=== PATIENT | male | born 1950 | race Hispanic/Latino ===

== ENCOUNTER 2018-04-05 21:29 | Observation (INO) | payer MEDICARE ==
--- NOTE | 2018-04-05 22:07 | RAD ---
CHEST TWO VIEWS: HISTORY: Chest pain and hypertension. FINDINGS: Heart size is borderline. Postop sternotomy changes. Some minimal linear atelectasis or scar in the lung bases. No focal infiltrates or signs of failure. IMPRESSION: Borderline heart size. No definite acute process. POS: [facility]
[2018-04-05 22:27] LABS: #Basophils 0.1 thou/uL (0.0-0.2); #Eosinphils 0.3 thou/uL (0.0-0.7); #Lymphocytes 1.9 thou/uL (1.20-3.40); #Monocytes 0.5 thou/uL (0.11-0.59); #Neutrophils 3.2 thou/uL (1.40-6.50); %Basophils 1.5 % (0.0-1.0); %Eosinophils 4.3 % (0.0-10.0); %Lymphocytes 31.9 % (21.0-51.0); %Monocytes 9.1 % (0.0-10.0); %Neutrophils 53.2 % (42.0-75.0); Hemoglobin 11.3 g/dL (14.0-18.0); Mean Corpuscular HGB CONC 34.4 g/dL (32.0-36.0); Mean Platelet Volume 7.6 fL (7.4-10.4); Platelet Count 225 thou/uL (130-400); Red Blood Cell (RBC) Count 3.55 mill/uL (4.70-6.10)
[2018-04-05 22:35] LABS: ALT (SGPT) 15 U/L (8-55); AST (SGOT) 26 U/L (5-34); Albumin 3.2 g/dL (3.4-4.8); Alkaline Phosphatase 74 U/L (40-150); Anion Gap 14 mmol/L (10-20); BUN (Urea Nitrogen) 46 mg/dL (8.4-25.7); Bilirubin, Total 0.4 mg/dL (0.2-1.2); CK (CPK) 986 U/L (30-200); Calc. Creatinine Clearance 0 mL/min (70-130); Calcium 8.4 mg/dL (7.8-10.44); Carbon Dioxide 20 mmol/L (23-31); Chloride 109 mmol/L (98-107); Estimated GFR-MDRD 22; Globulin 2.8 g/dL (2.4-3.5); Glucose 207 mg/dL (80-115); Potassium 4.6 mmol/L (3.5-5.1); Sodium 138 mmol/L (136-145)
[2018-04-05 22:44] LABS: Troponin I Less than 0.010 ng/mL (< 0.028)
[2018-04-05] MEDS ORDERED: cloNIDine 0.1 MG TAB ONE (22:56)
[2018-04-05 23:07] LABS: CKMB 10.5 ng/mL (0-6.6)
[2018-04-06] MEDS ORDERED: Nitroglycerin 0.2mg/Hour PATCH TOP SCH (01:00)
[2018-04-06 02:09] LABS: Troponin I 0.021 ng/mL (< 0.028)
[2018-04-06] MEDS ORDERED: hydrALAZINE 20 MG/ML VIAL SLOW IVP PRN (03:07)
[2018-04-06] MEDS ORDERED: Ondansetron ODT 4 MG TAB PO PRN (04:28)
[2018-04-06] MEDS ORDERED: Insulin Regular 300 UNITS/3 ML VIAL SC PRN ×2 (04:28)
[2018-04-06] MEDS ORDERED: Dextrose 5% in Water 1,000 ML IV PRN (04:28)
[2018-04-06] MEDS ORDERED: Dextrose 50% Abboject 50 ML SYRINGE SLOW IVP PRN (04:28)
[2018-04-06] MEDS ORDERED: Calcium Carbonate 500 MG ChewTAB PO PRN (04:28)
[2018-04-06] MEDS ORDERED: Nitroglycerin 0.4 MG TAB (25 Tab Bottle) PO PRN (04:28)
[2018-04-06] MEDS ORDERED: Senokot 8.6 MG TAB PO PRN (04:28)
[2018-04-06] MEDS ORDERED: Ondansetron HCl/PF 4 MG/2 ML Vial IVP PRN (04:28)
[2018-04-06] MEDS ORDERED: Furosemide 40 MG/4 ML VIAL SLOW IVP SCH (04:45)
--- NOTE | 2018-04-06 04:59 | HP ---
DATE OF ADMISSION: 04/06/2018 CHIEF COMPLAINT: Elevated blood pressure. PRIMARY CARE PHYSICIAN: Dr. Tatianna Reid. PRIMARY PHYSICIAN PRACTICE ADMINISTRATOR: Dr. Noland. HISTORY OF PRESENT ILLNESS: Patient is a 67-year-old male with CKD, stage 4; coronary artery disease , status post CABG and stent placement; hypertension; and diabetes mellitus, type 2 presented to the emergency room with uncontrolled blood pressure along with some headache and jaw pain for the last 5 days. Patient is compliant with all of his antihypertensives that includes carvedilol 25 mg twice a day and Imdur 30 mg daily and Lasix 20 mg daily. At times, his blood pressure drops in 80s where he starts feeling dizzy. He is currently not on RADHA inhibitor due to renal insufficiency. Here earlier today, his blood pressure was in 200 range, for which he presented to the emergency room. He also h ad some headache, which was over his posterior neck with some tingling in his left hand. Tingling in the left hand has resolved. He denies any double vision, blurring of vision, facial asymmetry, bobby turia, or back pain. In the emergency room, initial vital signs showed temperature 98.5, respirations 18, pulse rate of 80 , blood pressure of 206/113 with O2 saturation 96% on room air. He received 1 liter IV fluid, 0.1 mg clonidine, 10 mg hydralazine. Patient also complains of shortness of breath on mild exertion. He gets short of breath on lying florina n. He also noticed bilateral lower extremity swelling that has been worsening over the past few days . PAST MEDICAL HISTORY: 1. Coronary artery disease, status post CABG and stent placement. 2. Hypertension. 3. CKD, stage 4. 4. Hyperlipidemia. 5. Diabetes mellitus, type 2. 6. Helicobacter pylori. 7. Benign prostatic hypertrophy. PAST SURGICAL HISTORY: 1. Coronary artery bypass grafting. 2. Cardiac catheterization. 3. Right eye vitrectomy. 4. Chronic diastolic heart failure. 5. History of acute CVA in 2017. ALLERGIES: Patient is allergic to PENICILLIN. CURRENT HOME MEDICATIONS: Aspirin 81 mg daily, Lipitor 20 mg daily, carvedilol 25 mg b.i.d., finaste ride 5 mg daily, Imdur 30 mg daily, Lasix 20 mg daily, Lantus 15 units in the morning and 5 units in the evening. SOCIAL HISTORY: Patient currently lives at home. He is a former smoker approximately [id number] s moking history. He denies current use of alcohol or drug use. He is retired, lives at home with his family. FAMILY HISTORY: Makes his own decision with the help of his family. He is FULL CODE. Family histor y is positive for heart disease. REVIEW OF SYSTEMS: The following complete review of systems was negative, unless otherwise mentioned in the HPI or below: Constitutional: Weight loss or gain, ability to conduct usual activities. Sk in: Rash, itching. Eyes: Double vision, pain. ENT/Mouth: Nose bleeding, neck stiffness, pain, te nderness. Cardiovascular: Palpitations, dyspnea on exertion, orthopnea. Respiratory: Shortness of breath, wheezing, cough, hemoptysis, fever, or night sweats. Gastrointestinal: Poor appetite, abdo ene pain, heartburn, nausea, vomiting, constipation, or diarrhea. Genitourinary: Urgency, frequen cy, dysuria, nocturia. Musculoskeletal: Pain, swelling. Neurologic/Psychiatric: Anxiety, depressi on. Allergy/Immunologic: Skin rash, bleeding tendency. PHYSICAL EXAMINATION: VITAL SIGNS: As discussed above. GENERAL: A 67-year-old male in no apparent distress. Denies any tingling in his left hand. Headach e is improving. HEENT: Head atraumatic, normocephalic. Sclerae anicteric. Moist mucous membrane. No oral lesion. NECK: Supple, no carotid bruit. Neck veins distended. HEART: S1, S2 present. Healed midline scar from previous CABG, 2/6 systolic murmur over the mitral area. No heaves or pulsation. ABDOMEN: Soft, nontender, bowel sounds present. EXTREMITIES: No guarding or rigidity. 1+ edema in bilateral lower extremities. LUNGS: Showed bibasilar crackles with scattered rhonchi. No wheezing. There was mild accessory mus joey use. SKIN: Warm and dry. LYMPH NODES: No palpable lymph nodes in the neck. PERIPHERAL VASCULAR: Radial pulses palpable bilaterally. MUSCULOSKELETAL: No joint swelling or tenderness. LABORATORY FINDINGS: CK of 986 with CK-MB 10.5. Troponins were negative. BNP 1021. BUN was 46, cr eatinine 2.87. Hemoglobin 11.3, hematocrit 33. Chest x-ray by my review showed pulmonary vascular congestion. EKG by my review showed sinus rhythm with nonspecific ST-T wave changes. IMPRESSION: 1. Hypertensive urgency. We will continue carvedilol, Imdur. We will start him on IV diuretics. Flora jimenez was counseled on fluid and salt-restriction. There is no evidence of end-organ damage. 2. Acute on chronic diastolic heart failure exacerbation secondary to volume overload. Plan as disc ussed above. 3. Acute kidney injury on chronic kidney disease stage 4, probably secondary to cardiorenal syndrome . We will avoid RADHA inhibitor due to renal insufficiency. We will continue beta blockers and Lasix. We will recheck labs in a.m. 4. Diabetes mellitus, type 2. We will start him on sliding scale. 5. Elevated CK at 986. Patient denies any fall or injury. His CK last year has been in 200 range. We will recheck CK in a.m. We will hold IV fluids due to congestive heart failure. He received 1 l iter IV normal saline bolus in the emergency room. 6. Mild protein-calorie malnutrition. Patient has hypoalbuminemia secondary to proteinuria. 7. Metabolic acidosis probably secondary to renal insufficiency. 8. Anemia secondary to renal insufficiency. 9. Coronary artery disease, status post coronary artery bypass graft and stent placement. 10. Hyperlipidemia. 11. History of cerebrovascular accident currently on aspirin, which will be continued. Plan of care was discussed with the patient and the family in detail, they stated understanding.
[2018-04-06 06:01] LABS: Troponin I 0.051 ng/mL (< 0.028)
[2018-04-06] MEDS: Acetaminophen 325 MG TAB PO PRN ×2 (07:39→21:24)
[2018-04-06] MEDS ORDERED: Furosemide 20 MG TAB PO PRN (07:52)
[2018-04-06] MEDS: Aspirin 81 mg Enteric Coated Tablet PO SCH (08:42)
[2018-04-06] MEDS: Carvedilol 25 MG TAB PO SCH ×2 (08:42→21:24)
[2018-04-06] MEDS ORDERED: Insulin Detemir 100 UNITS/ML 15 UNITS in Pre-Filled Syringe 1 EACH SC SCH (09:00)
[2018-04-06] MEDS ORDERED: Aspirin 325 MG TAB PO SCH (09:00)
[2018-04-06] MEDS ORDERED: Non-Formulary Item 1 EACH (Insulin Glargine,Hum.Rec.Anlog 15 UNIT) SC SCH (09:00)
[2018-04-06] MEDS ORDERED: Carvedilol 25 MG TAB PO SCH (09:00)
[2018-04-06] MEDS ORDERED: Finasteride 5 MG TAB PO SCH ×3 (09:00→21:00)
[2018-04-06 09:01] LABS: Anion Gap 18 mmol/L (10-20); Calc. Creatinine Clearance 34 mL/min (70-130); Calcium 8.4 mg/dL (7.8-10.44); Carbon Dioxide 12 mmol/L (23-31); Chloride 118 mmol/L (98-107); Estimated GFR-MDRD 25; Glucose 102 mg/dL (80-115); Potassium 4.7 mmol/L (3.5-5.1); Sodium 143 mmol/L (136-145)
[2018-04-06 09:11] LABS: BUN (Urea Nitrogen) 42 mg/dL (8.4-25.7)
[2018-04-06] MEDS: Amlodipine 5 MG TAB PO SCH (09:57)
--- NOTE | 2018-04-06 11:16 | CON ---
DATE OF CONSULTATION: 04/06/2018 NEPHROLOGY CONSULTATION REASON FOR CONSULTATION: Elevated creatinine. HISTORY OF PRESENT ILLNESS: A 67-year-old gentleman being seen in the [facility], presented to the [facility] today for elevated blood pressure. The patient complains of headache. Denies any numbness, tingling or weakness. The patient's baseline creatinine was in 2 and increased to 2.8. The patient denies taking any NSAIDs or any nausea medications. The patient has been complaining of some leg swe lling and also dyspnea with minimal exertion. PAST MEDICAL HISTORY: Coronary artery disease, CABG, hypertension, CKD stage 4, diabetes mellitus, B PH, CABG, cardiac catheterization, vitrectomy, congestive heart failure, CVA. ALLERGIES: Reviewed. HOME MEDICATIONS: List reviewed. SOCIOECONOMIC HISTORY: No alcohol or drug use. FAMILY HISTORY: Negative for ESRD. REVIEW OF SYSTEMS: A 15-point review of systems was performed and was negative except for positives noted above. GENERAL: Weakness- HEAD: Headache- NECK: No swelling or lumps. NOSE: No epistaxis or discharge. EYES: No diplopia or pain. 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 NEUROPSYCHIATIC SYSTEMS: No suicidal ideation. No ideation. SKIN: Denies any rash or ulcer. CONSTITUTIONAL: No fever or chills. PHYSICAL EXAMINATION: GENERAL: Patient is awake and alert. VITAL SIGNS: Afebrile, pulse 73, breathing 16, blood pressure 165/88. HEAD/NECK: Normocephalic. Atraumatic. EYES: EOMI. No deformity. EARS: Clear. No ulcers. NOSE: Intact. No lesions. MOUTH: Clear. No discharge. THROAT: Clear. No exudate. LUNGS: Clear. No crackles. CARDIAC: S1, S2. No rub. ABDOMEN: Benign. BS+. GENITALIA/RECTUM: Connor absent. BACK/EXTREMITIES: Edema 0+ Ulcer- NEUROLOGICAL: Alert and motor intact. SKIN: Rash- Bruise- LYMPHATICS: Have some edema, ulcer- LABORATORY DATA: Show creatinine 2.87. Today's, creatinine is pending. ASSESSMENT AND RECOMMENDATIONS: 1. Acute kidney disease with chronic kidney disease, most likely due to decreased effective arterial blood volume and/or cardiorenal syndrome. Agree with furosemide. 2. Hypertension. Would add amlodipine. 3. Edema with congestive heart failure. Continue Lasix. Would recommend cardiac evaluation. The p atient's EF last time was 40%. The patient has mild aortic and mitral regurgitation. No urgent miky cation for dialysis at this time.
[2018-04-06] MEDS: Furosemide 40 MG/4 ML VIAL SLOW IVP SCH (13:59)
--- NOTE | 2018-04-06 14:00 | ULT ---
RENAL ULTRASOUND: COMPARISON: None. History Acute kidney injury. TECHNIQUE: Multiplanar, barajas scale, and color Doppler images were obtained in a renal ultrasound. FINDINGS: The kidneys demonstrate increased echogenicity. There are anechoic cysts in both kidneys. The large st is seen on the left measuring 3.7 cm in size. There is no evidence of hydronephrosis on either si de. No shadowing calculi are present. The right kidney is smaller than the left. The kidneys measu re 8.2 and 11.6 cm in length on the right and left, respectively. Limited visualization of the urinary bladder is unremarkable. IMPRESSION: 1. Bilateral renal cysts. 2. Echogenic kidneys is likely secondary to chronic medical renal disease. POS: [facility]
--- NOTE | 2018-04-06 14:55 | CT ---
NONCONTRAST CT HEAD: DATE: 04/06/18. HISTORY: Posterior headache without relief. COMPARISON: 05/26/17. FINDINGS: There is no evidence of a hemorrhage, acute infarction, mass effect, or midline shift. There are mil d scattered low-density areas in the periventricular white matter likely attributable to mild chronic small-vessel ischemic changes. There is stable mild cerebral and cerebellar volume loss. The previ ously noted gas within the left globe is not visualized on this exam. No other interval change from the prior study. IMPRESSION: No acute intracranial abnormality is demonstrated. POS: [facility]
[2018-04-06] MEDS ORDERED: Insulin Detemir 100 UNITS/ML 5 UNITS in Pre-Filled Syringe 1 EACH SC SCH (21:00)
[2018-04-06] MEDS ORDERED: Insulin Glargine 5 UNITS in Pre-Filled Syringe 1 EACH SC SCH (21:00)
[2018-04-06] MEDS ORDERED: Non-Formulary Item 1 EACH (Insulin Glargine,Hum.Rec.Anlog 5 UNIT) SQ SCH (21:00)
[2018-04-07] MEDS: Furosemide 40 MG/4 ML VIAL SLOW IVP SCH (05:24)
[2018-04-07 05:44] LABS: Anion Gap 11 mmol/L (10-20); BUN (Urea Nitrogen) 44 mg/dL (8.4-25.7); CK (CPK) 373 U/L (30-200); Calc. Creatinine Clearance 31 mL/min (70-130); Calcium 8.8 mg/dL (7.8-10.44); Carbon Dioxide 23 mmol/L (23-31); Chloride 111 mmol/L (98-107); Estimated GFR-MDRD 23; Glucose 98 mg/dL (80-115); Magnesium 2.1 mg/dL (1.6-2.6); Potassium 3.9 mmol/L (3.5-5.1); Sodium 141 mmol/L (136-145)
[2018-04-07 08:27] VITALS: BP 178/89; TEMP 97.4
[2018-04-07] MEDS ORDERED: Insulin Glargine 15 UNITS in Pre-Filled Syringe 1 EACH SC SCH (09:00)
[2018-04-07] MEDS: Amlodipine 5 MG TAB PO SCH (09:00)
[2018-04-07] MEDS: Carvedilol 25 MG TAB PO SCH (09:00)
[2018-04-07] MEDS ORDERED: hydrALAZINE 25 MG TAB PO SCH (09:00)
[2018-04-07] MEDS: Aspirin 81 mg Enteric Coated Tablet PO SCH (09:00)
[2018-04-07] MEDS: Acetaminophen 325 MG TAB PO PRN (09:04)
--- NOTE | 2018-04-07 11:44 | DIS ---
DATE OF ADMISSION: 04/06/2018 DATE OF DISCHARGE: 04/07/2018 PRIMARY CARE PHYSICIAN: Dr. Reid. PRIMARY INFORMATION TECH: Dr. Noland. DISCHARGE DIAGNOSES: 1. Hypertensive urgency. 2. Medical nonadherence. 3. Acute kidney injury on chronic kidney disease, stage 4. 4. Essential hypertension. 5. Hyperlipidemia. 6. Acute on chronic diastolic congestive heart failure. 7. Type 2 diabetes with diabetic nephropathy. CONSULTATION: Nephrology, Dr. Noland. PROCEDURES: 1. Brain CT that was negative for acute intracranial abnormality. 2. Renal ultrasound that showed no evidence of obstruction, noted bilateral renal cysts, noted medic al renal disease changes. 3. 2D echocardiogram to be done, but report currently pending. We will follow up as an outpatient. HOSPITAL COURSE: Mr. Young is a 67-year-old [place] male with a history of diabetes, hyperte nsion, and chronic kidney disease, who presents to the emergency department for elevated blood pressu re. Per the notes, he has been having headache and jaw pain for 5 days prior to admission with some dyspnea on exertion. Workup in the ER showed a blood pressure of 206/113, but nevertheless, he received 1 liter of IV flui d. It was also notable for CK of 986, CK-MB of 10.5, negative troponin that was indeterminate. We were called to admit. HOSPITAL COURSE: The patient was seen and examined by Dr. Og, placed on observation. Renal was c onsulted, serial cardiac biomarkers were obtained. Renal recommended CT of the brain for the headach e and echocardiogram. CT was negative, and echocardiogram has yet to be done this morning. Renal ul trasound was negative as above. The patient was started on amlodipine 2.5 daily. He had a better blood pressure, but still spiked up to the 180s overnight. He was started on hydralazine 25 p.o. t.i.d. on the day of discharge and was better controlled. He was seen by Renal and cleared for discharge with outpatient followup. PHYSICAL EXAMINATION: The patient was seen and examined on the day of discharge. Discharge plan and disposition was discussed with the patient and renal [id number]. DISCHARGE MEDICATIONS: 1. New medication, Norvasc 2.5 mg p.o. daily. Prescription sent for one month with 2 refills. 2. Hydralazine 25 mg p.o. t.i.d., prescription for one month with 2 refills. 3. Aspirin 81 mg daily. 4. Atorvastatin 20 mg p.o. at bedtime. 5. Carvedilol 25 mg p.o. b.i.d. 6. Finasteride 5 mg p.o. at bedtime. 7. Lasix 20 mg p.o. daily. 8. Lantus 15 units subcu daily and 5 units subcu at bedtime. 9. Isosorbide mononitrate 30 mg p.o. daily. DISCHARGE CONDITION: Stable. DISPOSITION: Discharged home via private vehicle. FOLLOWUP APPOINTMENTS: 1. Primary care physician, Dr. Reid, within a week. 2. Dr. Noland in 1-2 weeks per his clinic schedule. DISCHARGE ACTIVITY: Per cardiopulmonary limits. DISCHARGE DIET: Heart healthy, diabetic, renal diet recommended.
--- NOTE | 2018-04-07 12:59 | PRG ---
DATE OF SERVICE: 04/07/2018 SUBJECTIVE: This is a 67-year-old gentleman, being seen for acute kidney injury. The patient denies any nausea, vomiting, or chest pain. OBJECTIVE: See above. GENERAL: Patient is awake, alert. VITAL SIGNS: Afebrile, pulse 75, breathing at 16, blood pressure 178/89. GENERAL APPEARANCE AND MENTAL STATUS: Fair. HEAD/NECK: Normocephalic. Atraumatic. EYES: EOMI. No deformity. EARS: Clear. No ulcers. NOSE: Intact. No lesions. MOUTH: Clear. No discharge. THROAT: Clear. No exudate. LUNGS: Clear. No crackles. CARDIAC: S1, S2. No rub. ABDOMEN: Benign. BS+. GENITALIA/RECTUM: Connor absent. BACK/EXTREMITIES: Edema 0+, ulcer. NEUROLOGICAL: Alert and motor intact. SKIN: Rash - bruise. LYMPHATICS: Edema - ulcer. LABORATORY DATA: Labs show creatinine 2.75 and potassium 3.9. ASSESSMENT AND RECOMMENDATIONS: 1. Acute kidney injury, chronic kidney disease stage 4 with, mild increase in creatinine, probably a t baseline. 2. Renal cystic disease. 3. Hypertension. We would recommend increasing the carvedilol to 37.5 mg twice a day. 4. Edema, congestive heart failure. We would recommend continuing Lasix 40 mg p.o. b.i.d. The leatha ent will need repeat laboratories in 1 week and follow up to see me. 5. Renal cystic disease. No evidence of hydronephrosis.
== END 2018-04-07 11:50 | disposition home or self-care (01) ==
LOC: ERS 21:29 → 2SW 23:50
PROVIDERS: ADMIT Internal Medicine; ATTEND Internal Medicine
DX: I16.0 Hypertensive urgency (principal); I13.0 Hypertensive heart and chronic kidney disease with heart failure and stage 1 through stage 4 chronic kidney disease, or unspecified chronic kidney disease; E11.22 Type 2 diabetes mellitus with diabetic chronic kidney disease; N18.4 Chronic kidney disease, stage 4 (severe); I50.33 Acute on chronic diastolic (congestive) heart failure; N17.9 Acute kidney failure, unspecified; D63.1 Anemia in chronic kidney disease; E78.5 Hyperlipidemia, unspecified; I25.10 Atherosclerotic heart disease of native coronary artery without angina pectoris; E87.2 Acidosis; E44.1 Mild protein-calorie malnutrition; Z68.27 Body mass index [BMI] 27.0-27.9, adult; Z86.73 Personal history of transient ischemic attack (TIA), and cerebral infarction without residual deficits; Z87.891 Personal history of nicotine dependence; Z88.0 Allergy status to penicillin; Z79.82 Long term (current) use of aspirin; Z79.4 Long term (current) use of insulin; Z79.899 Other long term (current) drug therapy; Z95.1 Presence of aortocoronary bypass graft; Z95.5 Presence of coronary angioplasty implant and graft; Z91.14 Patient's other noncompliance with medication regimen
CPT/HCPCS: 70450; 71046; 76770; 80048 ×2; 80053; 82550 ×2; 82553; 82962 ×2; 83735; 83880; 84484 ×3; 85025; 93005; 93306; 94760 ×2; 96361; 96374; 96375; 96376 ×2; 97139 ×2; 99285; G0378; 36415; 36416; A4216; J0360; J1815; J1940

== ENCOUNTER 2018-04-10 09:01 | Emergency (ER) | payer MEDICARE ==
[2018-04-10 09:55] LABS: #Eosinphils 0.2 thou/uL (0.0-0.7); #Lymphocytes 1.6 thou/uL (1.20-3.40); #Monocytes 0.5 thou/uL (0.11-0.59); #Neutrophils 3.4 thou/uL (1.40-6.50); %Basophils 0.7 % (0.0-1.0); %Eosinophils 3.5 % (0.0-10.0); %Lymphocytes 27.8 % (21.0-51.0); %Monocytes 8.5 % (0.0-10.0); %Neutrophils 59.4 % (42.0-75.0); Hemoglobin 11.6 g/dL (14.0-18.0); Mean Corpuscular HGB CONC 35.3 g/dL (32.0-36.0); Mean Corpuscular Hemoglobin 32.7 pg (27.0-31.0); Mean Corpuscular Volume 92.8 fl (80.0-94.0); Mean Platelet Volume 7.1 fL (7.4-10.4); Platelet Count 210 thou/uL (130-400); Red Blood Cell (RBC) Count 3.54 mill/uL (4.70-6.10); White Blood Cell (WBC) Count 5.8 thou/uL (4.8-10.8)
[2018-04-10 10:09] LABS: Bilirubin Negative (Negative); Blood, Urine Negative (Negative); Clarity CLEAR (Clear); Glucose, Urine (Dipstick) Negative (Negative); Leukocyte Negative (Negative); Nitrite Negative (Negative); Protein, Urine (Dipstick) 300 mg/dL (Neg-Trace); Specific Gravity, Urine 1.012 (1.002-1.036); Urobilinogen 0.2 mg/dL (0.2-1.0)
[2018-04-10 10:10] LABS: ALT (SGPT) 16 U/L (8-55); AST (SGOT) 18 U/L (5-34); Albumin 3.3 g/dL (3.4-4.8); Alkaline Phosphatase 70 U/L (40-150); Anion Gap 9 mmol/L (10-20); BUN (Urea Nitrogen) 50 mg/dL (8.4-25.7); Bilirubin, Total 0.6 mg/dL (0.2-1.2); Calc. Creatinine Clearance 0 mL/min (70-130); Calcium 8.8 mg/dL (7.8-10.44); Carbon Dioxide 25 mmol/L (23-31); Chloride 109 mmol/L (98-107); Estimated GFR-MDRD 20; Globulin 2.7 g/dL (2.4-3.5); Glucose 104 mg/dL (80-115); Potassium 4.3 mmol/L (3.5-5.1); Sodium 139 mmol/L (136-145)
--- NOTE | 2018-04-10 10:11 | RAD ---
PORTABLE AP CHEST XRAY: DATE: 04/10/18. HISTORY: Hypotension and weakness. COMPARISON: 04/15/18. FINDINGS: Surgical changes related to CABG are again noted. The cardiac silhouette and pulmonary vasculature a re within normal limits. Vascular calcification is seen in the thoracic aorta. There are mild incre ased interstitial densities on the prior study which have resolved. The lungs are clear on today's e xam. No other interval change. IMPRESSION: No acute cardiopulmonary process. POS: [facility]
[2018-04-10 10:12] LABS: Bacteria/HPF None Seen HPF (None Seen); Hyaline Casts/LPF 0-3 HYALINE CAST LPF (0-3 Hyaline); RBC/HPF 0-3 HPF (0-3); Squamous Epithelial 0-3 HPF (0-3); WBC/HPF None Seen HPF (0-3)
[2018-04-10 10:13] LABS: CKMB 5.3 ng/mL (0-6.6); Troponin I Less than 0.010 ng/mL (< 0.028)
== END 2018-04-10 13:19 | disposition home or self-care (01) ==
LOC: ERS 09:01
DX: I95.9 Hypotension, unspecified (principal); D64.9 Anemia, unspecified; I13.0 Hypertensive heart and chronic kidney disease with heart failure and stage 1 through stage 4 chronic kidney disease, or unspecified chronic kidney disease; E11.22 Type 2 diabetes mellitus with diabetic chronic kidney disease; N18.9 Chronic kidney disease, unspecified; I50.9 Heart failure, unspecified; E78.5 Hyperlipidemia, unspecified; I25.10 Atherosclerotic heart disease of native coronary artery without angina pectoris; Z79.4 Long term (current) use of insulin; Z79.82 Long term (current) use of aspirin; Z79.899 Other long term (current) drug therapy
CPT/HCPCS: 36415; 71045; 80053; 81003; 81015; 82553; 84484; 85025; 93005; 96360

== ENCOUNTER 2018-11-11 09:51 | Emergency (ER) | payer MEDICARE ==
[2018-11-11 10:12] LABS: #Eosinphils 0.2 thou/uL (0.0-0.7); #Lymphocytes 1.4 thou/uL (1.20-3.40); #Monocytes 0.7 thou/uL (0.11-0.59); #Neutrophils 3.7 thou/uL (1.40-6.50); %Basophils 0.3 % (0.0-1.0); %Eosinophils 2.9 % (0.0-10.0); %Lymphocytes 22.8 % (21.0-51.0); %Monocytes 12.2 % (0.0-10.0); %Neutrophils 61.9 % (42.0-75.0); Hemoglobin 8.8 g/dL (14.0-18.0); Mean Corpuscular HGB CONC 34.9 g/dL (32.0-36.0); Mean Corpuscular Hemoglobin 32.1 pg (27.0-31.0); Mean Platelet Volume 6.7 fL (7.4-10.4); Platelet Count 228 thou/uL (130-400); RBC Distribution Width 12.4 % (11.5-14.5); Red Blood Cell (RBC) Count 2.74 mill/uL (4.70-6.10)
[2018-11-11 10:47] LABS: ALT (SGPT) 23 U/L (8-55); AST (SGOT) 37 U/L (5-34); Albumin 3.1 g/dL (3.4-4.8); Alkaline Phosphatase 174 U/L (40-150); Anion Gap 15 mmol/L (10-20); BUN (Urea Nitrogen) 54 mg/dL (8.4-25.7); Bilirubin, Total 0.5 mg/dL (0.2-1.2); Calc. Creatinine Clearance 0 mL/min (70-130); Calcium 9.3 mg/dL (7.8-10.44); Carbon Dioxide 20 mmol/L (23-31); Chloride 107 mmol/L (98-107); Estimated GFR-MDRD 15; Globulin 3.2 g/dL (2.4-3.5); Glucose 139 mg/dL (80-115); Lipase 25 U/L (8-78); Potassium 4.6 mmol/L (3.5-5.1); Protein, Total 6.3 g/dL (5.8-8.1); Sodium 137 mmol/L (136-145)
--- NOTE | 2018-11-11 12:23 | ULT ---
RIGHT UPPER QUADRANT ULTRASOUND: 11/11/2018 HISTORY: Right upper quadrant pain. COMPARISON: None. TECHNIQUE: Multiplanar barajas-scale sonographic imaging of the right upper quadrant provided. FINDINGS: The pancreatic duct is mildly prominent, measuring 3 mm in AP dimension. The pancreas is not well as sessed secondary to obscuration by bowel gas. No discrete focal liver lesion is seen. The hepatic p arenchyma is mildly heterogeneous, nonspecific finding. There is no gallbladder wall thickening or pericholecystic fluid. No gallstones are noted. The sono grapher reports a negative Norris sign. The right kidney is echogenic, which may signify renal medical disease. The right kidney measures 9. 3 cm in craniocaudal dimension and contains a small central cyst, measuring in the 1.1 cm range. No hydronephrosis is seen. The common bile duct is dilated, measuring up to 8 mm. IMPRESSION: Nonspecific mild dilation of the common bile duct with prominence of the pancreatic duct. This could be secondary to a biliary obstructive process in the region of the pancreatic head or ampulla of Vat er. This area is obscured on this examination. Further assessment via CT or MRI suggested, to evalu ate possible biliary obstructive process. CODE T POS: [facility]
[2018-11-11 12:53] LABS: Bilirubin Negative (Negative); Blood, Urine Trace (Negative); Clarity CLOUDY (Clear); Glucose, Urine (Dipstick) 100 mg/dL (Negative); Leukocyte Negative (Negative); Nitrite Negative (Negative); Protein, Urine (Dipstick) 300 mg/dL (Neg-Trace); Urobilinogen 0.2 mg/dL (0.2-1.0); pH, Urine 5.5 (5.0-9.0)
[2018-11-11 12:55] LABS: Bacteria/HPF None Seen HPF (None Seen); Pathc Cast-AUWi Flag 2.18 (0-2.49); Squamous Epithelial 0-3 HPF (0-3)
[2018-11-11 13:13] LABS: Crystals/HPF 1+ AMORPH URATES HPF (Negative); Hyaline Casts/LPF 0-3 HYALINE CAST LPF (0-3 Hyaline); Renal Epithelial None Seen HPF (0-3); Transitional Epithelial NONE SEEN HPF (0-3)
--- NOTE | 2018-11-11 13:22 | CT ---
CT ABDOMEN AND PELVIS WITHOUT CONTRAST: Date: 11/11/18 Multiple axial tomograms obtained through abdomen and pelvis without IV enhancement. INDICATION; Right upper quadrant abdominal pain. IV contrast was withheld due to patient's renal status. FINDINGS: Lung bases clear. The liver, spleen, and pancreas appear unremarkable. Adrenal glands normal. Review of the kidneys shows no evidence of hydronephrosis. No evidence of urinary tract calculus. In the left kidney, there is a low density lesion seen inferior pole measuring 2.2 cm with density becerril ggesting a simple cyst. There is another lesion in the lateral inferior pole of the left kidney which is more complex. This l esion exhibits mild peripheral calcification and measures 2.6 cm. The internal densities are measured at 30 Hounsfield units, making this a suspicious lesion. Right kidney appears unremarkable. Small bowel loops normal caliber. Appendix appears normal. Scattered diverticula of the left colon. Urinary bladder is mildly distended and there is evidence of mild bladder wall thickening. Prostate mildly enlarged. Aorta normal caliber with peripheral calcification. IMPRESSION: 1. No acute intra-abdominal process. 2. Complex lesion involving the left inferior renal cortex measuring 2.6 cm. This lesion exhibits pe ripheral calcification and has indeterminate density. CT abdomen with IV contrast is recommended for further evaluation. 3. Lesion inferior pole of left kidney measuring 2.2 cm has density suggesting a cyst. 4. Evidence of mild urinary bladder wall thickening. Prostate is mildly enlarged. POS: [facility]
== END 2018-11-11 14:54 | disposition home or self-care (01) ==
LOC: ERS 09:51
DX: K80.50 Calculus of bile duct without cholangitis or cholecystitis without obstruction (principal); E11.9 Type 2 diabetes mellitus without complications; I10 Essential (primary) hypertension; E78.5 Hyperlipidemia, unspecified; Z79.899 Other long term (current) drug therapy; Z79.4 Long term (current) use of insulin
CPT/HCPCS: 36416; 74176; 76705; 80053; 81003; 81015; 83690; 85025; 94760

== ENCOUNTER 2018-11-11 21:10 | Inpatient (IN) | payer MEDICARE ==
[2018-11-11] MEDS ORDERED: Ondansetron PF 4 MG/2 ML Vial ONE (21:53)
[2018-11-11] MEDS ORDERED: Morphine 4 MG/ML VIAL ONE (21:53)
[2018-11-11 22:17] LABS: #Basophils 0.1 thou/uL (0.0-0.2); #Eosinphils 0.2 thou/uL (0.0-0.7); #Lymphocytes 1.3 thou/uL (1.20-3.40); #Monocytes 0.8 thou/uL (0.11-0.59); #Neutrophils 3.8 thou/uL (1.40-6.50); %Basophils 0.9 % (0.0-1.0); %Eosinophils 2.8 % (0.0-10.0); %Lymphocytes 21.3 % (21.0-51.0); %Monocytes 12.3 % (0.0-10.0); %Neutrophils 62.7 % (42.0-75.0); Hemoglobin 8.8 g/dL (14.0-18.0); Mean Corpuscular HGB CONC 34.4 g/dL (32.0-36.0); Mean Corpuscular Hemoglobin 31.8 pg (27.0-31.0); Mean Corpuscular Volume 92.5 fL (78.0-98.0); Mean Platelet Volume 6.9 fL (7.4-10.4); Platelet Count 220 thou/uL (130-400); RBC Distribution Width 12.2 % (11.5-14.5); Red Blood Cell (RBC) Count 2.77 mill/uL (4.70-6.10); White Blood Cell (WBC) Count 6.1 thou/uL (4.8-10.8)
[2018-11-11 22:38] LABS: ALT (SGPT) 29 U/L (8-55); AST (SGOT) 50 U/L (5-34); Albumin 3.2 g/dL (3.4-4.8); Alkaline Phosphatase 220 U/L (40-150); Anion Gap 15 mmol/L (10-20); BUN (Urea Nitrogen) 55 mg/dL (8.4-25.7); Bilirubin, Total 0.6 mg/dL (0.2-1.2); Calc. Creatinine Clearance 0 mL/min (70-130); Calcium 9.2 mg/dL (7.8-10.44); Carbon Dioxide 19 mmol/L (23-31); Chloride 107 mmol/L (98-107); Estimated GFR-MDRD 16; Globulin 3.2 g/dL (2.4-3.5); Glucose 218 mg/dL (80-115); Potassium 4.8 mmol/L (3.5-5.1); Protein, Total 6.4 g/dL (5.8-8.1); Sodium 136 mmol/L (136-145)
[2018-11-11 23:40] LABS: Bilirubin Negative (Negative); Blood, Urine Small (Negative); Clarity CLEAR (Clear); Glucose, Urine (Dipstick) 250 mg/dL (Negative); Leukocyte Negative (Negative); Nitrite Negative (Negative); Protein, Urine (Dipstick) 300 mg/dL (Neg-Trace); Specific Gravity, Urine 1.013 (1.002-1.036)
[2018-11-11 23:42] LABS: Bacteria/HPF None Seen HPF (None Seen); Hyaline Casts/LPF 0-3 HYALINE CAST LPF (0-3 Hyaline); RBC/HPF 0-3 HPF (0-3); Squamous Epithelial 0-3 HPF (0-3); WBC/HPF 0-3 HPF (0-3)
--- NOTE | 2018-11-11 23:45 | RAD ---
UPRIGHT PORTABLE CHEST ONE VIEW: 11/11/18 HISTORY: 68-year-old male with history of right upper quadrant pain. COMPARISON: 04/10/18. FINDINGS: Monitor leads overlie the chest. Postop midline sternotomy. Stable increased linear and interstitial markings bilaterally and biapical pleural thickening. No confluent pneumonia, overt edema or pleural effusion. IMPRESSION: No significant acute intrathoracic disease. Stable from prior study. POS: [facility]
[2018-11-11] MEDS ORDERED: Dextrose 5% in Water 1,000 ML IV PRN (23:48)
[2018-11-11] MEDS ORDERED: HumaLOG 300 UNITS/3 ML VIAL SC PRN ×2 (23:48)
[2018-11-11] MEDS ORDERED: Dextrose 50% Abboject 50 ML SYRINGE SLOW IVP PRN (23:48)
[2018-11-11] MEDS ORDERED: Ondansetron PF 4 MG/2 ML Vial IVP PRN (23:48)
[2018-11-11] MEDS ORDERED: Ondansetron ODT 4 MG TAB PO PRN (23:48)
[2018-11-11] MEDS ORDERED: Acetaminophen 650 MG Suppository PR PRN (23:48)
[2018-11-11] MEDS ORDERED: Bisacodyl 5 MG TAB PO PRN (23:48)
[2018-11-12] MEDS: Sodium Chloride 0.9% 1,000 ML IV SCH ×2 (00:38→14:37)
[2018-11-12 01:07] VITALS: BMI 26.6
[2018-11-12 05:04] LABS: Band 6 % (5-11); Eosinophils 2 % (0-10); Hemoglobin 8.2 g/dL (14.0-18.0); Lymphocytes 18 % (21-51); MDiff Complete? YES; Mean Corpuscular Hemoglobin 31.5 pg (27.0-31.0); Mean Corpuscular Volume 92.7 fL (78.0-98.0); Mean Platelet Volume 6.7 fL (7.4-10.4); Monocytes 8 % (0-10); Neutrophil 66 % (42-75); PLT Morphology Comment Appears Adequate; Platelet Count 190 thou/uL (130-400); RBC Distribution Width 12.3 % (11.5-14.5); White Blood Cell (WBC) Count 6.1 thou/uL (4.8-10.8)
[2018-11-12 05:10] LABS: Albumin 3.1 g/dL (3.4-4.8); Anion Gap 13 mmol/L (10-20); BUN (Urea Nitrogen) 50 mg/dL (8.4-25.7); BUN/Creatinine Ratio 13.74; Calc. Creatinine Clearance 22 mL/min (70-130); Calcium 9.1 mg/dL (7.8-10.44); Carbon Dioxide 22 mmol/L (23-31); Chloride 108 mmol/L (98-107); Estimated GFR-MDRD 17; Glucose 137 mg/dL (80-115); Phosphorus 4.2 mg/dL (2.3-4.7); Potassium 4.6 mmol/L (3.5-5.1); Sodium 138 mmol/L (136-145)
[2018-11-12] MEDS: Acetaminophen 325 MG TAB PO PRN ×2 (06:51→13:33)
[2018-11-12] MEDS: Amlodipine 5 MG TAB PO SCH ×2 (07:59→13:33)
[2018-11-12] MEDS: Carvedilol 25 MG TAB PO SCH ×2 (07:59→20:29)
[2018-11-12] MEDS: hydrALAZINE 25 MG TAB PO SCH ×4 (07:59→20:29)
[2018-11-12] MEDS ORDERED: Famotidine 20 MG TAB PO SCH (09:00)
[2018-11-12] MEDS ORDERED: Famotidine/PF 20 mg/2ml Vial SLOW IVP SCH (09:00)
[2018-11-12] MEDS: Morphine 4 MG/ML VIAL SLOW IVP PRN ×3 (09:15→21:30)
[2018-11-12] MEDS: Heparin 5,000 UNITS/ML VIAL SC SCH ×2 (09:34→20:22)
[2018-11-12] MEDS: Aspirin 81 mg Enteric Coated Tablet PO SCH (09:34)
--- NOTE | 2018-11-12 12:44 | HP ---
CHIEF COMPLAINT: Abdominal pain. HISTORY OF PRESENT ILLNESS: This is a 68-year-old male with past medical history of CAD, hyperlipidemia, hypertension, presenting with right-sided abdominal pain, which has been ongoing for the past 1 week prior to the day of admission. The patient states that he has been having this ongoing abdominal pain, which comes on spontaneously. The patient states that he has had episode of nonbilious, nonbloody vomitus x1 and also has been experiencing some nausea. The patient presented to our ED early on the day and a CT of the abdomen and pelvis was ordered, which showed no acute findings and there was a complex lesion that was seen in the left inferior renal cortex, 2.6 cm, recommending IV contrast. The patient was managed and the patient was discharged. The patient, however, is now coming back because he states that his right upper quadrant abdominal pain is still there and is radiating to his back and is severe on a 10/10 pain scale, aching, dull in nature, and he feels like something is really going on in his abdomen. REVIEW OF SYSTEMS: Positive for abdominal pain, nausea, and chills. Otherwise, all other systems are reviewed and are negative. PAST MEDICAL HISTORY: Diabetes mellitus, type 2; coronary artery disease, status post stents; hyperlipidemia; and hypertension. FAMILY HISTORY: Reviewed and noncontributory to this visit. PAST SURGICAL HISTORY: CABG, 4 vessels; left eye surgery; right eye surgery for retinal detachment. PSYCHIATRIC HISTORY: No psych history. SOCIAL HISTORY: The patient denies alcohol use. Denies any illicit drug use. The patient denies any smoking history. ALLERGIES: PENICILLINS. CURRENT MEDICATIONS: The patient takes; 1. Aspirin. 2. Carvedilol. 3. Finasteride. 4. Atorvastatin. 5. Amlodipine. 6. Lantus. 7. Pantoprazole. 8. Zofran. PHYSICAL EXAMINATION: VITAL SIGNS: The patient's blood pressure is 166/80, pulse of 79, respiratory rate of 19, and O2 sat of 96% on room air. GENERAL: The patient is lying in bed, does not appear to be in any acute distress. The patient is speaking in full sentences. The patient is alert and oriented x3. HEENT: Normocephalic, atraumatic. Pupils are equal, round, and reactive to light. Extraocular movements are intact. No scleral icterus. No conjunctival pallor. Mucous membranes are moist. NECK: Trachea is midline. No JVD. Supple. LUNGS: Clear to auscultation bilaterally. No wheezing, no rales, no rhonchi appreciated. CARDIAC: Positive S1 and S2. Regular rate and rhythm. No murmurs, no gallops, no rubs appreciated. ABDOMEN: Tender to palpation at the right upper and lower quadrants. No abdominal distention. No masses. No pulsatile masses. No peritoneal signs. EXTREMITIES: The patient has 5/5 upper extremity strength and 5/5 lower extremity strength. No edema noted. Good pulses bilaterally of the upper and lower extremities. NEUROLOGIC: Cranial nerves II through XII grossly intact. No neurologic deficits noted. SKIN: Warm, dry, and intact. PSYCH: Normal affect. RADIOLOGY DATA: Sinus rhythm for the EKG. LABORATORY DATA: WBC 6.1, hemoglobin is 8.8, hematocrit is 25.6, MCV is 92.5, and platelet count is 220. Sodium is 136, potassium is 4.8, chloride is 107, carbon dioxide of 19, anion gap of 15, BUN is 55, creatinine is 3.82, GFR of 16, and glucose is 218. AST is 50, ALT is 29, alkaline phosphatase is 220. Urinalysis is negative. IMAGING DATA: CT of the abdomen and pelvis showed no acute intraabdominal process. Complex lesion involving the left inferior renal cortex measuring 2.6 cm. The lesion exhibits peripheral calcification and has an indeterminate density. There is evidence of mild urinary bladder wall thickening. Abdominal ultrasound showed nonspecific mild dilatation of the common bile duct with prominence of the pancreatic duct. This could be secondary to biliary obstruction process in the region of the pancreatic head or ampulla of Vater. The area is obscured on this examination. Further assessment via CT or MRI is suggested. ASSESSMENT AND PLAN: This is a 68-year-old male, presenting with, 1. Right upper quadrant abdominal pain radiating to the right flank. The patient has been started on pain medications. We are going to continue IV hydration. We have consulted GI. The patient will most likely benefit from MRCP or ERCP to further evaluate common bile duct dilatation. The patient's alkaline phosphatase is elevated. Therefore, it will be beneficial to have further evaluation of the common bile duct. We will follow up with GI's recommendation. 2. Diabetes mellitus, type 2. The patient is going to be started on insulin sliding scale. We will continue insulin sliding scale. 3. Coronary artery disease, status post stent, currently stable. We will continue the patient on current medications. 4. Hyperlipidemia. We will continue the patient on his current medication. 5. Hypertension. We will continue the patient on current management. 6. Benign prostatic hyperplasia. We will continue the patient on home medications. 7. Deep vein thrombosis/gastrointestinal prophylaxis. Job ID: [id number]
--- NOTE | 2018-11-12 14:06 | PDOC.PN ---
- Subjective Encounter Start Date: 11/12/18 Encounter Start Time: 09:00 Pt seen for followup re: qabdo pain. Reports on and off abdo pain, improving with morphine. - Objective Resuscitation Status - Order Detail: 11/11/18 23:48 Resuscitation Status Routine Resuscitation Status: FULL: Full Resuscitation MAR Reviewed: Yes Vital Signs & Weight: Vital Signs (12 hours) Temp Pulse Resp BP BP Pulse Ox 11/12/18 13:33 80 154/78 H 11/12/18 11:07 99.1 F 80 18 128/55 L 90 L 11/12/18 07:36 98.9 F 78 18 134/64 90 L 11/12/18 04:00 99.7 F H 86 18 159/62 H 92 L Weight Weight 185 lb 6.54 oz I&O: 11/11/18 11/12/18 11/13/18 06:59 06:59 06:59 Intake Total 300 Balance 300 Result Diagrams: 11/12/18 04:38 11/12/18 04:38 Additional Labs: Accuchecks 11/12/18 11/12/18 11:11 04:30 POC Glucose 96 138 H Labs reviewed by me Phys Exam - Physical Examination Constitutional: NAD HEENT: moist MMs, sclera anicteric, oral pharynx no lesions, 2+ tonsils Neck: no nodes, no JVD, supple, full ROM Respiratory: clear to auscultation bilateral Cardiovascular: RRR, no rub S1, S2 Gastrointestinal: soft, non-tender, no distention, positive bowel sounds Neurological: moves all 4 limbs Psychiatric: normal affect, A&O x 3 Dx/Plan (1) Abdominal pain Code(s): R10.9 - UNSPECIFIED ABDOMINAL PAIN Status: Acute Comment: etiology unclear, workup in progress (2) Renal cyst Code(s): N28.1 - CYST OF KIDNEY, ACQUIRED Status: Acute Comment: obtain MRI to evaluate lesion (3) DM2 (diabetes mellitus, type 2) Status: Chronic Comment: continue accuchecks, insulin sliding scale (4) HLD (hyperlipidemia) Code(s): E78.5 - HYPERLIPIDEMIA, UNSPECIFIED Status: Chronic Comment: continue statin (5) HTN (hypertension) Code(s): I10 - ESSENTIAL (PRIMARY) HYPERTENSION Status: Chronic Comment: controlled - Plan * . Review of Systems - Review of Systems Constitutional: negative: fever, chills, sweats, weakness, malaise Respiratory: negative: Cough, Shortness of Breath, SOB with Excertion, Pleuritic Pain, Wheezing Cardiovascular: negative: chest pain, palpitations, orthopnea, paroxysmal nocturnal dyspnea, edema, light headedness Gastrointestinal: Abdominal Pain. negative: Nausea, Vomiting, Diarrhea, Constipation, Melena, Hematochezia Musculoskeletal: negative: Neck Pain, Shoulder Pain, Arm Pain, Back Pain, Hand Pain, Leg Pain, Foot Pain Neurological: negative: Weakness, Numbness, Incoordination, Change in Speech, Confusion, Seizures - Medications/Allergies Allergies/Adverse Reactions: Allergies Allergy/AdvReac Type Severity Reaction Status Date / Time Penicillins Allergy Severe DIFFICULTY Verified 05/20/17 13:45 BREATHING Medications: Current Medications Acetaminophen (Tylenol) 650 mg PO Q4H PRN PRN Reason: Headache/Fever/Mild Pain (1-3) Last Admin: 11/12/18 13:33 Dose: 650 mg Acetaminophen (Tylenol) 650 mg [place] Q4H PRN PRN Reason: Headache/Fever/Mild Pain (1-3) Amlodipine Besylate (Norvasc) 2.5 mg PO DAILY [facility] Last Admin: 11/12/18 13:33 Dose: 2.5 mg Aspirin (Ecotrin) 81 mg PO DAILY [facility] Last Admin: 11/12/18 09:34 Dose: Not Given Atorvastatin Calcium (Lipitor) 20 mg PO HS [facility] Bisacodyl (Dulcolax) 10 mg PO DAILYPRN PRN PRN Reason: Constipation Carvedilol (Coreg) 25 mg PO BID [facility] Last Admin: 11/12/18 07:59 Dose: 25 mg Dextrose/Water (Dextrose 50%) 25 gm SLOW IVP PRN PRN PRN Reason: Hypoglycemia Famotidine (Pepcid) 20 mg SLOW IVP DAILY [facility] Last Admin: 11/12/18 08:00 Dose: 20 mg Famotidine (Pepcid) 20 mg PO DAILY [facility] Last Admin: 11/12/18 08:00 Dose: Not Given Finasteride (Proscar) 5 mg PO HS [facility] Glucagon (Glucagon) 1 mg IM PRN PRN PRN Reason: Hypoglycemia Heparin Sodium (Porcine) (Heparin) 5,000 units SC BID [facility] Last Admin: 11/12/18 09:34 Dose: Not Given Hydralazine HCl (Apresoline) 25 mg PO TID [facility] Last Admin: 11/12/18 08:08 Dose: Not Given Sodium Chloride (Normal Saline 0.9%) 1,000 mls @ 60 mls/hr IV .[id number] [facility] Last Admin: 11/12/18 00:38 Dose: 1,000 mls Dextrose/Water (D5w) 1,000 mls @ 0 mls/hr IV .Q0M PRN PRN Reason: Hypoglycemia Insulin Glargine 5 units/ (Miscellaneous Medication) 0.05 mls @ 0 mls/hr SC [facility] Insulin Human Lispro (Humalog) 0 units SC .MILD SLIDING SCALE PRN PRN Reason: Mild Correctional Scale Insulin Human Lispro (Humalog) 0 units SC .BEDTIME SLIDING SC PRN PRN Reason: Bedtime Correctional Scale Isosorbide Mononitrate (Imdur Er) 30 mg PO DAILY [facility] Last Admin: 11/12/18 07:59 Dose: 30 mg Morphine Sulfate (Morphine) 2 mg SLOW IVP Q4H PRN PRN Reason: Severe Pain (7-10) Last Admin: 11/12/18 09:15 Dose: 2 mg Ondansetron HCl (Zofran Odt) 4 mg PO Q6H PRN PRN Reason: Nausea/Vomiting Ondansetron HCl (Zofran) 4 mg IVP Q6H PRN PRN Reason: Nausea/Vomiting Senna/Docusate Sodium (Senokot S) 2 tab PO BIDPRN PRN PRN Reason: Constipation Sodium Chloride (Flush - Normal Saline) 10 ml IVF Q12HR [facility] Last Admin: 11/12/18 08:00 Dose: Not Given Sodium Chloride (Flush - Normal Saline) 10 ml IVF PRN PRN PRN Reason: Saline Flush
[2018-11-12] MEDS ORDERED: GoLYTELY 4,000 ml Bottle PO SCH (17:00)
[2018-11-12] MEDS: Atorvastatin Calcium 20 MG TAB PO SCH (20:28)
[2018-11-12] MEDS: Finasteride 5 MG TAB PO SCH (20:29)
[2018-11-12] MEDS: Insulin Glargine 5 UNITS in Pre-Filled Syringe 1 EACH SC SCH (20:36)
[2018-11-12] MEDS ORDERED: Non-Formulary Item 1 EACH (Insulin Glargine,Hum.Rec.Anlog [Lantus Solostar] 5 UNIT) SQ SCH (21:00)
--- NOTE | 2018-11-13 02:12 | CON ---
DATE OF CONSULTATION: 11/12/2018 REASON FOR CONSULTATION: Right lower quadrant abdominal pain. CONSULTING PHYSICIAN: Dr. Be Tracey. HISTORY OF PRESENT ILLNESS: The patient is a 68-year-old male with past medical history of coronary artery disease, hyperlipidemia, hypertension, and diabetes, presenting with complaints of right lower quadrant abdominal pain and right lower back pain. He states that he was in his usual state of health until approximately 3 to 4 weeks ago, when he began to experience increased right lower quadrant abdominal pain and right flank and right back pain, characterized as a sharp stabbing type sensation, would radiate to the generalized abdomen, was intermittent, with complete resolution of pain in between episodes, but would reach a severity of 10/10 when it did occur. This pain would occur prior primarily in the evening when he would lie down as well as with increased consumption of spicy greasy foods, better with taking pain medications for which he was taking Tylenol and ibuprofen 200 mg b.i.d. However, over the last 24 to 48 hours prior to admission, he had sudden increase in this pain and it suddenly came constant rather than intermittent, which prompted his admission for healthcare assistance. Associated with this abdominal pain were increased headaches that were accompanied with the abdominal pain, but did not precede the abdominal pain and he also endorses night sweats where he would soak his bed sheets. This has been occurring over the same time. However, he denies any weight loss over the last 3 to 4 weeks as well. Otherwise, he denies any nausea, vomiting, fever, shaking chills, GI bleeding, diarrhea, or constipation. REVIEW OF SYSTEMS: A 10-category review of systems was obtained with all responses negative except for the pertinent positives as listed in the HPI. PAST MEDICAL HISTORY: As per HPI. PAST SURGICAL HISTORY: Coronary artery bypass graft x4 vessels, left eye surgery and right eye surgery for retinal detachment. FAMILY HISTORY: Denies any GI malignancies. SOCIAL HISTORY: Denies any tobacco, alcohol, or illicit drug use. OUTPATIENT MEDICATIONS: Reviewed. ALLERGIES: PENICILLIN. PHYSICAL EXAMINATION: VITAL SIGNS: Temperature 98.1, pulse 74, blood pressure 139/64, respiratory rate 20, saturating 91% on room air. GENERAL: The patient was lying in bed, in no acute distress. Alert and oriented x4. HEENT: Normocephalic, atraumatic. Neck supple. No JVD or scleral icterus noted. CARDIOVASCULAR: Regular rate and rhythm with no discernible murmurs, gallops, or rubs. RESPIRATORY: Clear to auscultation bilaterally with no discernible wheezes or rales. ABDOMEN: Normoactive bowel sounds. Soft, nondistended. Tenderness to palpation in the suprapubic, right upper quadrant and right lower quadrants. EXTREMITIES: No cyanosis, clubbing, or edema. LABORATORY DATA: CBC with a white blood cell count of 6.1, hemoglobin 8.2, hematocrit 24.1, platelets 190. Chemistry with a sodium of 138, potassium 4.6, chloride 108, CO2 of 22, BUN 50, creatinine 3.64, glucose 137. AST 50, ALT 29, alkaline phosphatase 220, total bilirubin 0.6. IMAGING DATA: CT of the abdomen and pelvis obtained on November 11, 2018 showed unremarkable liver morphology; however, there was a 2.6 cm complex lesion along the base of the left kidney concerning for possible malignant process. No abnormalities were mentioned within the colon. ASSESSMENT AND PLAN: The patient is a 68-year-old male with past medical history of coronary artery disease, hyperlipidemia, hypertension, and diabetes, presenting with complaints of mid epigastric and right lower quadrant abdominal pain. Abdominal pain. The patient is presenting with a 3 to 4-week history of suprapubic, right lower quadrant, right flank, and right lower back abdominal pain, characterized as a stabbing type sensation, would generalize to the entire abdomen and would reach a severity of 10/10. The pain progressively worsened over the last 24 to 48 hours that prompted his admission to the [facility] ER. While in the ER, he was noted to have a mild anemia with normal MCV and RDW that was not consistent with iron deficiency anemia or chronic gastrointestinal blood loss. However, he does have a mildly elevated alkaline phosphatase, which is concerning for a possible bony or intrahepatic or biliary tree abnormality. However, given his history of midepigastric abdominal pain as well as right lower quadrant abdominal pain and associated with night sweats as well as never having had a colonoscopy or endoscopic evaluation before, it is concerning for possible gastrointestinal malignancy. RECOMMENDATIONS: 1. We will place the patient on a clear liquid diet today and make the patient n.p.o. at midnight in preparation for both EGD and colonoscopy tomorrow. 2. We will perform an EGD and a colonoscopy tomorrow for evaluation of midepigastric abdominal pain and right lower quadrant abdominal pain respectively. 3. Pain control per primary team. 4. We will place the patient on PPI 40 mg daily for possible acid reflux contributing to his midepigastric abdominal pain. We will continue to follow. Please call with any questions. Job ID: [id number]
[2018-11-13] MEDS: Morphine 4 MG/ML VIAL SLOW IVP PRN ×2 (04:24→18:27)
[2018-11-13] MEDS: Sodium Chloride 0.9% 1,000 ML IV SCH ×2 (04:29→22:12)
[2018-11-13] MEDS: Acetaminophen 325 MG TAB PO PRN ×2 (05:49→22:11)
[2018-11-13] MEDS: Amlodipine 5 MG TAB PO SCH ×2 (08:03→13:37)
[2018-11-13] MEDS: Heparin 5,000 UNITS/ML VIAL SC SCH ×2 (08:04→20:20)
[2018-11-13] MEDS: hydrALAZINE 25 MG TAB PO SCH ×3 (08:05→20:17)
[2018-11-13] MEDS: Aspirin 81 mg Enteric Coated Tablet PO SCH (08:09)
[2018-11-13] MEDS ORDERED: Carvedilol 25 MG TAB PO SCH (08:30)
[2018-11-13] MEDS: Carvedilol 25 MG TAB PO SCH ×2 (08:39→20:17)
[2018-11-13] MEDS ORDERED: Promethazine HCl 25 MG/ML VIAL SLOW IVP PRN (12:18)
[2018-11-13] MEDS ORDERED: Promethazine HCl 25 MG/ML VIAL IM PRN (12:18)
[2018-11-13] MEDS ORDERED: Ondansetron HCl/PF 4 MG/2 ML Vial IVP PRN (12:18)
--- NOTE | 2018-11-13 13:17 | EKG ---
Test Reason : Blood Pressure : / mmHG Vent. Rate : 074 BPM Atrial Rate : 074 BPM P-R Int : 162 ms QRS Dur : 098 ms QT Int : 428 ms P-R-T Axes : 041 014 087 degrees QTc Int : 475 ms Normal sinus rhythm Minimal voltage criteria for LVH, may be normal variant Nonspecific T wave abnormality Prolonged QT Abnormal ECG Confirmed by KOURTNEY LI, JONATHAN ([id number]), acquisitions editor MATTHEW SESAY ([id number]) on 11/13/2018 1:17:28 PM Referred By: Confirmed By:JONATHAN OCONNELL MD
--- NOTE | 2018-11-13 13:50 | OP ---
DATE OF PROCEDURE: 11/13/2018 PROCEDURES: 1. Esophagogastroduodenoscopy with biopsy. 2. Colonoscopy with polypectomy. INDICATIONS FOR PROCEDURE: Midepigastric abdominal pain, right lower quadrant abdominal pain. DESCRIPTION OF PROCEDURE: After the risks and benefits of the procedures were explained to the patient including risk of bleeding, infection, perforation, reactions to anesthesia, and/or pain, informed consent was obtained. The patient was then taken to the endoscopy suite, where deep sedation was administered via propofol and anesthesia support. Once adequate sedation was achieved, the patient was maneuvered into the left lateral decubitus position with introduction of the standard gastroscope into the mouth with intubation of the esophagus, stomach, and the proximal small intestine with the findings listed below. The patient tolerated this portion of the procedure well with no immediate perioperative complications. Upon completion of this phase of the procedure, all equipment was removed from the patient and the patient was rotated 180 degrees in the bed. An external digital rectal exam was then performed followed by the introduction of the standard colonoscope into the rectum and advanced to the terminal ileum with mild difficulty due to tortuosity of the colon requiring manual abdominal pressure in order to facilitate passage of the scope. The quality of the prep was fair with a [id number] amount of retained both solid and liquid stool seen throughout the entire colon, and while it was adequate for larger mucosal lesions, the prep was inadequate for lesions less than 5 mm in size. The patient tolerated the procedure well with no immediate perioperative complications. Upon completion of the colonoscopy, the patient was transferred to PACU in satisfactory condition. EGD FINDINGS: Esophagus: Normal-appearing mucosa was seen in the proximal, mid, and distal esophagus. There was no evidence of erosions, ulcerations, mass, lesions, or active/recent bleeding. Stomach: Multiple billingsley/flesh color polyps were seen in the gastric cardia and fundus without any associated increased erythema. Multiple biopsies were taken from these polyps as a premium representative sample and placed in the specimen jar for evaluation. Otherwise, normal-appearing mucosa was seen in the gastric body, antrum, and incisura. There was no evidence of erosions, ulcerations, mass, lesions, or active/recent bleeding. Duodenum: Normal-appearing mucosa was seen in both the duodenal bulb and second portion of the duodenum. There was no evidence of erosions, ulcerations, mass, lesions, or active/recent bleeding. IMPRESSION: 1. Multiple billingsley/flesh color polyps seen in the gastric cardia and fundus consistent with fundic gland polyps, status post biopsies. 2. Otherwise, normal upper endoscopy. 3. No etiology for the patient's abdominal pain was seen during this examination. COLONOSCOPY FINDINGS: Digital rectal exam: Small external hemorrhoids were seen on external examination. Colon findings: Normal-appearing mucosa was seen in the terminal ileum as well as at the ileocecal valve and appendiceal orifice. Normal-appearing mucosa was also seen in the cecum; however, there was a [id number] amount of retained solid and liquid stool that was seen throughout the colon that did limit visualization somewhat. Aggressive irrigation and suctioning were performed, but despite these measures the prep was still inadequate for the evaluation of lesions less than 4 mm in size. Of the mucosa seen, there were two 3 to 5 mm polyp seen in the ascending colon and completely removed with snare cautery polypectomy. They were retrieved and placed in a specimen jar for evaluation. Two 3 to 5 mm transverse colon polyps were seen and completely removed with snare cautery polypectomy. They were retrieved and placed in the specimen jar for evaluation. In the descending colon, there were four 3 to 7 mm sessile polyps that were completely removed with snare cautery polypectomy. They were retrieved and placed in a specimen jar for evaluation. Both the sigmoid colon and rectum were normal in appearance. Small internal hemorrhoids were seen on rectal retroflexion. IMPRESSION: 1. Two 3 to 5 mm ascending colon polyp, status post hot snare. 2. Two 3 to 5 mm transverse colon polyp, status post hot snare. 3. Four 3 to 7 mm descending colon polyp, status post hot snare. 4. Small internal and external hemorrhoids. 5. No etiology for the patient's abdominal pain was seen during this examination. RECOMMENDATIONS: 1. We will follow up on the biopsy results with repeat EGD and/or colonoscopy based on the pathology report. 2. We will continue to monitor clinically for improving the patient's abdominal pain. 3. We would recommend a higher fiber diet given improvement of the pain with colonoscopy prep. 4. We will place the patient on a clear liquid diet and advance as tolerated. Given lack of findings on imaging and recent endoscopy as well as improvement of his abdominal pain, we will sign off at this time. Please call with any additional questions. Job ID: [id number]
--- NOTE | 2018-11-13 16:43 | PDOC.PN ---
- Subjective Encounter Start Date: 11/13/18 Encounter Start Time: 16:40 Pt seen for followup re: abdominal pain. Feels better. - Objective Resuscitation Status - Order Detail: 11/11/18 23:48 Resuscitation Status Routine Resuscitation Status: FULL: Full Resuscitation Vital Signs & Weight: Vital Signs (12 hours) Temp Pulse Resp BP BP Pulse Ox 11/13/18 15:59 97.8 F 75 16 121/66 91 L 11/13/18 15:20 73 136/69 11/13/18 15:17 97.6 F 73 20 136/69 96 11/13/18 13:37 70 141/60 H 11/13/18 12:40 97.6 F 70 20 129/68 94 L 11/13/18 08:05 72 158/80 H 11/13/18 08:03 72 158/80 H 11/13/18 07:40 93 L 11/13/18 07:37 98.6 F 72 20 158/80 H 93 L Weight Weight 185 lb 6.54 oz I&O: 11/12/18 11/13/18 11/14/18 06:59 06:59 06:59 Intake Total 300 1074 Balance 300 1074 Result Diagrams: 11/12/18 04:38 11/12/18 04:38 Additional Labs: Accuchecks 11/13/18 11/13/18 11/13/18 16:02 12:42 07:38 POC Glucose 230 H 88 91 11/13/18 11/12/18 04:20 20:36 POC Glucose 90 91 Phys Exam - Physical Examination Constitutional: NAD HEENT: moist MMs Neck: supple Respiratory: clear to auscultation bilateral Cardiovascular: RRR Gastrointestinal: soft Neurological: moves all 4 limbs Psychiatric: normal affect Dx/Plan (1) Abdominal pain Code(s): R10.9 - UNSPECIFIED ABDOMINAL PAIN Status: Acute Comment: s/p EGD and C-scope. (2) Renal cyst Code(s): N28.1 - CYST OF KIDNEY, ACQUIRED Status: Acute Comment: MRI pending (3) DM2 (diabetes mellitus, type 2) Status: Chronic Comment: on accuchecks, insulin sliding scale (4) HLD (hyperlipidemia) Code(s): E78.5 - HYPERLIPIDEMIA, UNSPECIFIED Status: Chronic Comment: on statin (5) HTN (hypertension) Code(s): I10 - ESSENTIAL (PRIMARY) HYPERTENSION Status: Chronic Comment: controlled - Plan * . Review of Systems - Review of Systems Respiratory: negative: Cough, Shortness of Breath, Hemoptysis, SOB with Excertion, Pleuritic Pain, Sputum, Wheezing Cardiovascular: negative: chest pain, palpitations, orthopnea, paroxysmal nocturnal dyspnea, edema, light headedness - Medications/Allergies Allergies/Adverse Reactions: Allergies Allergy/AdvReac Type Severity Reaction Status Date / Time Penicillins Allergy Severe DIFFICULTY Verified 05/20/17 13:45 BREATHING Medications: Current Medications Acetaminophen (Tylenol) 650 mg PO Q4H PRN PRN Reason: Headache/Fever/Mild Pain (1-3) Last Admin: 11/13/18 05:49 Dose: 650 mg Acetaminophen (Tylenol) 650 mg [place] Q4H PRN PRN Reason: Headache/Fever/Mild Pain (1-3) Amlodipine Besylate (Norvasc) 2.5 mg PO 1200 [facility] Last Admin: 11/13/18 13:37 Dose: 2.5 mg Aspirin (Ecotrin) 81 mg PO DAILY [facility] Last Admin: 11/13/18 08:09 Dose: 81 mg Atorvastatin Calcium (Lipitor) 20 mg PO HS [facility] Last Admin: 11/12/18 20:28 Dose: 20 mg Bisacodyl (Dulcolax) 10 mg PO DAILYPRN PRN PRN Reason: Constipation Carvedilol (Coreg) 25 mg PO BID [facility] Last Admin: 11/13/18 08:39 Dose: Not Given Dextrose/Water (Dextrose 50%) 25 gm SLOW IVP PRN PRN PRN Reason: Hypoglycemia Finasteride (Proscar) 5 mg PO HS [facility] Last Admin: 11/12/18 20:29 Dose: 5 mg Glucagon (Glucagon) 1 mg IM PRN PRN PRN Reason: Hypoglycemia Heparin Sodium (Porcine) (Heparin) 5,000 units SC BID [facility] Last Admin: 11/13/18 08:04 Dose: Not Given Hydralazine HCl (Apresoline) 25 mg PO TID [facility] Last Admin: 11/13/18 15:20 Dose: 25 mg Sodium Chloride (Normal Saline 0.9%) 1,000 mls @ 60 mls/hr IV .[id number] [facility] Last Admin: 11/13/18 04:29 Dose: 1,000 mls Dextrose/Water (D5w) 1,000 mls @ 0 mls/hr IV .Q0M PRN PRN Reason: Hypoglycemia Insulin Glargine 5 units/ (Miscellaneous Medication) 0.05 mls @ 0 mls/hr SC HS [facility] Last Admin: 11/12/18 20:36 Dose: Not Given Insulin Human Lispro (Humalog) 0 units SC .MILD SLIDING SCALE PRN PRN Reason: Mild Correctional Scale Insulin Human Lispro (Humalog) 0 units SC .BEDTIME SLIDING SC PRN PRN Reason: Bedtime Correctional Scale Isosorbide Mononitrate (Imdur Er) 30 mg PO DAILY [facility] Last Admin: 11/13/18 08:04 Dose: Not Given Morphine Sulfate (Morphine) 2 mg SLOW IVP Q4H PRN PRN Reason: Severe Pain (7-10) Last Admin: 11/13/18 04:24 Dose: 2 mg Ondansetron HCl (Zofran Odt) 4 mg PO Q6H PRN PRN Reason: Nausea/Vomiting Ondansetron HCl (Zofran) 4 mg IVP Q6H PRN PRN Reason: Nausea/Vomiting Pantoprazole Sodium (Protonix) 40 mg PO DAILY [facility] Last Admin: 11/13/18 08:05 Dose: 40 mg Senna/Docusate Sodium (Senokot S) 2 tab PO BIDPRN PRN PRN Reason: Constipation Sodium Chloride (Flush - Normal Saline) 10 ml IVF Q12HR [facility] Last Admin: 11/13/18 08:10 Dose: 10 ml Sodium Chloride (Flush - Normal Saline) 10 ml IVF PRN PRN PRN Reason: Saline Flush
[2018-11-13] MEDS: Atorvastatin Calcium 20 MG TAB PO SCH (20:17)
[2018-11-13] MEDS: Finasteride 5 MG TAB PO SCH (20:17)
[2018-11-13] MEDS: Insulin Glargine 5 UNITS in Pre-Filled Syringe 1 EACH SC SCH (20:29)
[2018-11-13] MEDS ORDERED: PROPOFOL 200 MG/20 ML VIAL ONE (22:13)
[2018-11-14] MEDS: Acetaminophen 325 MG TAB PO PRN ×2 (08:02→15:27)
[2018-11-14] MEDS: hydrALAZINE 25 MG TAB PO SCH ×3 (08:02→20:17)
[2018-11-14] MEDS: Aspirin 81 mg Enteric Coated Tablet PO SCH (08:03)
[2018-11-14] MEDS: Heparin 5,000 UNITS/ML VIAL SC SCH ×2 (08:03→20:19)
[2018-11-14] MEDS: Carvedilol 25 MG TAB PO SCH ×2 (08:03→20:16)
--- NOTE | 2018-11-14 10:47 | MRI ---
MRI OF THE ABDOMEN WITHOUT CONTRAST: HISTORY: MRCP. COMPARISON: CT abdomen/pelvis 11/11/2018 and gallbladder ultrasound 11/11/2018. HISTORY: Biliary dilatation and right upper quadrant abdominal pain. TECHNIQUE: Multiplanar, multisequence MR images were obtained of the abdomen without contrast. MRCP images were performed. FINDINGS: The gallbladder is distended. There is enlargement of the common bile duct to 11 mm and mild central intrahepatic biliary dilatation. On the axial T2 sequence, on image 28 of 45, there appears to be a filling defect within the common bile duct. This is not confirmed on additional images. It could b e artifactual but could also represent a stone within the common bile duct. The pancreatic duct is p rominent but not overtly enlarged. There are a few scattered foci of high T2 signal in the insular p ortion of the pancreas which could represent enlargement of the insular portion of the pancreatic iman t versus most of small cystic lesions in the insular portion of the pancreas measuring up to 12 mm in size. There is a 1.9 cm lesion demonstrating high T2 signal and low T1 signal in the right lobe of the live r. This is nonspecific and cannot be completely assessed without IV contrast. No loss of signal is seen in the liver on out of phase images to suggest fatty infiltration. There are multiple well-circumscribed foci of high T2 signal on both kidneys measuring up to 3.4 cm i n size which represent cysts. The adrenal glands and spleen are unremarkable. No abdominal adenopathy is seen. No marrow signal abnormality is present. IMPRESSION: 1. Possible filling defect in the common bile duct. 2. Bilateral renal cysts. 3. Nonspecific right hepatic mass. This cannot be completely assessed without contrast. A CT of th e abdomen per liver mass protocol or MRI of the abdomen with and without contrast is recommended for better evaluation. 4. Possible enlargement of the insular hepatic duct versus cystic lesions involving the insular port ion of the pancreas. POS: [facility]
[2018-11-14] MEDS: Amlodipine 5 MG TAB PO SCH (12:26)
[2018-11-14 14:40] LABS: #Eosinphils 0.1 thou/uL (0.0-0.7); #Lymphocytes 0.9 thou/uL (1.20-3.40); #Monocytes 0.7 thou/uL (0.11-0.59); #Neutrophils 3.3 thou/uL (1.40-6.50); %Lymphocytes 18.2 % (21.0-51.0); %Neutrophils 65.9 % (42.0-75.0); Hemoglobin 8.4 g/dL (14.0-18.0); Mean Corpuscular HGB CONC 33.6 g/dL (32.0-36.0); Mean Corpuscular Hemoglobin 31.3 pg (27.0-31.0); Mean Corpuscular Volume 93.1 fL (78.0-98.0); Mean Platelet Volume 6.8 fL (7.4-10.4); Platelet Count 211 thou/uL (130-400); RBC Distribution Width 12.4 % (11.5-14.5); Red Blood Cell (RBC) Count 2.69 mill/uL (4.70-6.10)
[2018-11-14 15:05] LABS: ALT (SGPT) 42 U/L (8-55); AST (SGOT) 65 U/L (5-34); Albumin 2.9 g/dL (3.4-4.8); Alkaline Phosphatase 217 U/L (40-150); Anion Gap 10 mmol/L (10-20); BUN (Urea Nitrogen) 35 mg/dL (8.4-25.7); Bilirubin, Total 0.7 mg/dL (0.2-1.2); Calc. Creatinine Clearance 24 mL/min (70-130); Calcium 8.8 mg/dL (7.8-10.44); Carbon Dioxide 21 mmol/L (23-31); Chloride 110 mmol/L (98-107); Estimated GFR-MDRD 18; Globulin 3.1 g/dL (2.4-3.5); Glucose 154 mg/dL (80-115); Potassium 4.4 mmol/L (3.5-5.1); Sodium 137 mmol/L (136-145)
[2018-11-14] MEDS: Morphine 4 MG/ML VIAL SLOW IVP PRN (15:47)
[2018-11-14] MEDS ORDERED: Cyclobenzaprine 10 MG TAB PO PRN (15:47)
[2018-11-14] MEDS ORDERED: Cyclobenzaprine 10 MG TAB PO SCH (16:00)
--- NOTE | 2018-11-14 16:53 | PDOC.PN ---
- Subjective Encounter Start Date: 11/14/18 Encounter Start Time: 09:40 Pt seen for followup re: abdominal pain. Reports low back pain. No fevers or chills. - Objective Resuscitation Status - Order Detail: 11/11/18 23:48 Resuscitation Status Routine Resuscitation Status: FULL: Full Resuscitation MAR Reviewed: Yes Vital Signs & Weight: Vital Signs (12 hours) Temp Pulse Resp BP BP Pulse Ox 11/14/18 15:27 76 167/82 H 11/14/18 12:26 76 164/79 H 11/14/18 08:02 76 164/79 H 11/14/18 07:37 98.1 F 76 18 164/79 H 96 Weight Weight 185 lb 6.54 oz I&O: 11/13/18 11/14/18 11/15/18 06:59 06:59 06:59 Intake Total 1074 2540 Balance 1074 2540 Result Diagrams: 11/14/18 14:29 11/14/18 14:29 Additional Labs: Accuchecks 11/14/18 11/14/18 11/13/18 11:30 04:19 22:11 POC Glucose 106 108 132 H 11/13/18 19:46 POC Glucose 76 Labs reviewed by me Phys Exam - Physical Examination Constitutional: NAD HEENT: moist MMs Neck: supple Respiratory: clear to auscultation bilateral Cardiovascular: RRR Gastrointestinal: soft mild tenderness over right lower back Neurological: moves all 4 limbs Psychiatric: normal affect Dx/Plan (1) Abdominal pain Code(s): R10.9 - UNSPECIFIED ABDOMINAL PAIN Status: Acute Comment: c/o back pain. Trial Flexeril. (2) Liver mass Code(s): R16.0 - HEPATOMEGALY, NOT ELSEWHERE CLASSIFIED Status: Acute Comment: unable to obtain MRI or CT with contrast due to renal failure (3) Renal cyst Code(s): N28.1 - CYST OF KIDNEY, ACQUIRED Status: Acute Comment: MRI shows cysts (4) DM2 (diabetes mellitus, type 2) Status: Chronic Comment: on accuchecks, insulin sliding scale (5) HLD (hyperlipidemia) Code(s): E78.5 - HYPERLIPIDEMIA, UNSPECIFIED Status: Chronic Comment: on statin (6) HTN (hypertension) Code(s): I10 - ESSENTIAL (PRIMARY) HYPERTENSION Status: Chronic Comment: controlled - Plan * . Review of Systems - Review of Systems Cardiovascular: negative: chest pain, palpitations, orthopnea, paroxysmal nocturnal dyspnea, edema, light headedness Gastrointestinal: negative: Nausea, Abdominal Pain, Diarrhea, Melena - Medications/Allergies Allergies/Adverse Reactions: Allergies Allergy/AdvReac Type Severity Reaction Status Date / Time Penicillins Allergy Severe DIFFICULTY Verified 05/20/17 13:45 BREATHING Medications: Current Medications Acetaminophen (Tylenol) 650 mg PO Q4H PRN PRN Reason: Headache/Fever/Mild Pain (1-3) Last Admin: 11/14/18 15:27 Dose: 650 mg Acetaminophen (Tylenol) 650 mg [place] Q4H PRN PRN Reason: Headache/Fever/Mild Pain (1-3) Amlodipine Besylate (Norvasc) 2.5 mg PO 1200 [facility] Last Admin: 11/14/18 12:26 Dose: 2.5 mg Aspirin (Ecotrin) 81 mg PO DAILY [facility] Last Admin: 11/14/18 08:03 Dose: 81 mg Atorvastatin Calcium (Lipitor) 20 mg PO HS [facility] Last Admin: 11/13/18 20:17 Dose: 20 mg Bisacodyl (Dulcolax) 10 mg PO DAILYPRN PRN PRN Reason: Constipation Carvedilol (Coreg) 25 mg PO BID [facility] Last Admin: 11/14/18 08:03 Dose: 25 mg Cyclobenzaprine HCl (Flexeril) 10 mg PO NOW [facility] Stop: 11/14/18 18:00 Last Admin: 11/14/18 16:24 Dose: 10 mg Cyclobenzaprine HCl (Flexeril) 10 mg PO TID PRN PRN Reason: Muscle Spasm Dextrose/Water (Dextrose 50%) 25 gm SLOW IVP PRN PRN PRN Reason: Hypoglycemia Finasteride (Proscar) 5 mg PO HS [facility] Last Admin: 11/13/18 20:17 Dose: 5 mg Glucagon (Glucagon) 1 mg IM PRN PRN PRN Reason: Hypoglycemia Heparin Sodium (Porcine) (Heparin) 5,000 units SC BID [facility] Last Admin: 11/14/18 08:03 Dose: 5,000 units Hydralazine HCl (Apresoline) 25 mg PO TID [facility] Last Admin: 11/14/18 15:27 Dose: 25 mg Sodium Chloride (Normal Saline 0.9%) 1,000 mls @ 60 mls/hr IV .[id number] [facility] Last Admin: 11/13/18 22:12 Dose: 1,000 mls Dextrose/Water (D5w) 1,000 mls @ 0 mls/hr IV .Q0M PRN PRN Reason: Hypoglycemia Insulin Glargine 5 units/ (Miscellaneous Medication) 0.05 mls @ 0 mls/hr SC HS [facility] Last Admin: 11/13/18 20:29 Dose: Not Given Insulin Human Lispro (Humalog) 0 units SC .MILD SLIDING SCALE PRN PRN Reason: Mild Correctional Scale Last Admin: 11/13/18 17:20 Dose: 3 unit Insulin Human Lispro (Humalog) 0 units SC .BEDTIME SLIDING SC PRN PRN Reason: Bedtime Correctional Scale Isosorbide Mononitrate (Imdur Er) 30 mg PO DAILY [facility] Last Admin: 11/14/18 08:03 Dose: 30 mg Morphine Sulfate (Morphine) 2 mg SLOW IVP Q4H PRN PRN Reason: Severe Pain (7-10) Last Admin: 11/14/18 15:47 Dose: 2 mg Ondansetron HCl (Zofran Odt) 4 mg PO Q6H PRN PRN Reason: Nausea/Vomiting Ondansetron HCl (Zofran) 4 mg IVP Q6H PRN PRN Reason: Nausea/Vomiting Pantoprazole Sodium (Protonix) 40 mg PO DAILY [facility] Last Admin: 11/14/18 08:03 Dose: 40 mg Senna/Docusate Sodium (Senokot S) 2 tab PO BIDPRN PRN PRN Reason: Constipation Sodium Chloride (Flush - Normal Saline) 10 ml IVF Q12HR [facility] Last Admin: 11/14/18 08:04 Dose: Not Given Sodium Chloride (Flush - Normal Saline) 10 ml IVF PRN PRN PRN Reason: Saline Flush
[2018-11-14] MEDS: Sodium Chloride 0.9% 1,000 ML IV SCH ×2 (17:53→22:48)
[2018-11-14] MEDS: Finasteride 5 MG TAB PO SCH (20:16)
[2018-11-14] MEDS: Atorvastatin Calcium 20 MG TAB PO SCH (20:16)
[2018-11-14] MEDS: Insulin Glargine 5 UNITS in Pre-Filled Syringe 1 EACH SC SCH (20:20)
[2018-11-15] MEDS: Morphine 4 MG/ML VIAL SLOW IVP PRN ×2 (02:18→06:38)
[2018-11-15] MEDS: Senokot S 8.6-50 MG TAB PO PRN (02:19)
[2018-11-15] MEDS: hydrALAZINE 25 MG TAB PO SCH ×3 (08:51→21:59)
[2018-11-15] MEDS: Acetaminophen 325 MG TAB PO PRN ×2 (08:52→18:17)
[2018-11-15] MEDS: Heparin 5,000 UNITS/ML VIAL SC SCH ×2 (08:52→22:01)
[2018-11-15] MEDS: Carvedilol 25 MG TAB PO SCH ×2 (08:52→21:58)
[2018-11-15] MEDS: Aspirin 81 mg Enteric Coated Tablet PO SCH (08:52)
[2018-11-15] MEDS: Sodium Chloride 0.9% 1,000 ML IV SCH (12:48)
[2018-11-15] MEDS: Amlodipine 5 MG TAB PO SCH (12:53)
[2018-11-15] MEDS ORDERED: Indomethacin 50 MG SUPP PR SCH (13:00)
--- NOTE | 2018-11-15 13:22 | PQF ---
GEOVANY ALCALA DAVID [id number] CLINICAL DOCUMENTATION IMPROVEMENT CLARIFICATION FORM: ICD-10 Updated PLEASE DO AN ADDENDUM TO THE PROGRESS NOTE WITH ANY DOCUMENTATION UPDATES OR ADDITIONS AND CARRY THROUGH TO DC SUMMARY. THANK YOU. DATE: 11/15 ATTN: DR. DEXTER AGUIAR Please exercise your independent, professional judgment in responding to the clarification form. Clinical indicators are provided on the bottom of this form for your review. Please check appropriate box(s): [ ] Acute on Chronic Renal Failure please specify Stage of CKD (see below) [ ] CKD without ARF/CHAD please specify Stage of CKD [ ] Other diagnosis [ ] Unable to determine National Kidney Foundation Guidelines for CKD Staging Stage I Kidney damage with normal or increased GFR GFR > 90 Stage II Kidney damage with mildly decreased GFR GFR 60-89 Stage III Kidney damage with moderately decreased GFR GFR 30-59 Stage IV Kidney damage with severely decreased GFR GFR 16-29 Stage V Kidney failure GFR<15 ESRD End Stage Renal Disease On dialysis For continuity of documentation, please document condition throughout progress notes and discharge summary. Thank You. CLINICAL INDICATORS - SIGNS / SYMPTOMS / LABS BUN: 55 CR: 3.82 GFR: 16 (11/11) 50 3.64 17 (11/12) 35 3.45 18 (11/14) PN 11/14 - DX/PLAN: 2) LIVER MASS, ACUTE. UNABLE TO OBTAIN MRI OR CT W/ CONTRAST D/T RENAL FAILURE RISK FACTORS: HTN DM II TREATMENTS: IVF (NS 11/11 - PRESENT) SERIAL LABS THANK YOU! Kaitlynn (This form is maintained as a part of the permanent medical record) 2014 [email or web address]. All Rights Reserved Kaitlynn Motta, RN, BSN [email or web address] Office: [phone] [facility]
[2018-11-15] MEDS ORDERED: Fentanyl 100 MCG/2 ML VIAL ONE (15:09)
[2018-11-15] MEDS ORDERED: Indomethacin 50 MG SUPP ONE (15:10)
[2018-11-15] MEDS ORDERED: Iothalamate Meglumine 60% 50 ML VIAL FS ONE (15:10)
--- NOTE | 2018-11-15 15:45 | PDOC.PN ---
- Subjective Encounter Start Date: 11/15/18 Encounter Start Time: 07:40 Pt seen for followup re: abdo pain. Reports ongoing right-sided abdo pain. - Objective Resuscitation Status - Order Detail: 11/11/18 23:48 Resuscitation Status Routine Resuscitation Status: FULL: Full Resuscitation MAR Reviewed: Yes Vital Signs & Weight: Vital Signs (12 hours) Temp Pulse Resp BP BP Pulse Ox 11/15/18 12:53 98.4 F 72 18 157/74 H 157/64 H 93 L 11/15/18 08:51 77 152/76 H 11/15/18 08:00 93 L 11/15/18 07:52 98.2 F 77 20 152/76 H 93 L Weight Weight 185 lb 6.54 oz I&O: 11/14/18 11/15/18 11/16/18 06:59 06:59 06:59 Intake Total 2540 1220 Balance 2540 1220 Result Diagrams: 11/14/18 14:29 11/14/18 14:29 Additional Labs: Accuchecks 11/15/18 11/15/18 11/14/18 11:55 06:28 19:15 POC Glucose 108 145 H 180 H 11/14/18 16:56 POC Glucose 199 H Labs reviewed by me Phys Exam - Physical Examination Constitutional: NAD HEENT: moist MMs Neck: supple Respiratory: clear to auscultation bilateral Cardiovascular: RRR Gastrointestinal: soft RLQ tenderness, lower back tenderness Neurological: moves all 4 limbs Psychiatric: normal affect Dx/Plan (1) Abdominal pain Code(s): R10.9 - UNSPECIFIED ABDOMINAL PAIN Status: Acute Comment: ongoing pain, d/w GI service re: possible ERCP (2) Liver mass Code(s): R16.0 - HEPATOMEGALY, NOT ELSEWHERE CLASSIFIED Status: Acute Comment: unable to obtain MRI or CT with contrast due to renal failure. For workup as outpt. (3) Renal cyst Code(s): N28.1 - CYST OF KIDNEY, ACQUIRED Status: Acute Comment: MRI shows cysts (4) DM2 (diabetes mellitus, type 2) Status: Chronic Comment: reasonably controlled (5) HLD (hyperlipidemia) Code(s): E78.5 - HYPERLIPIDEMIA, UNSPECIFIED Status: Chronic Comment: on statin (6) HTN (hypertension) Code(s): I10 - ESSENTIAL (PRIMARY) HYPERTENSION Status: Chronic Comment: controlled (7) Chronic kidney disease, stage 4 (severe) Code(s): N18.4 - CHRONIC KIDNEY DISEASE, STAGE 4 (SEVERE) Status: Chronic Comment: stable, present on admission - Plan * . Review of Systems - Review of Systems Cardiovascular: negative: chest pain, palpitations, orthopnea, paroxysmal nocturnal dyspnea, edema, light headedness Gastrointestinal: Abdominal Pain. negative: Nausea, Vomiting, Diarrhea, Constipation, Melena, Hematochezia - Medications/Allergies Allergies/Adverse Reactions: Allergies Allergy/AdvReac Type Severity Reaction Status Date / Time Penicillins Allergy Severe DIFFICULTY Verified 05/20/17 13:45 BREATHING Medications: Current Medications Acetaminophen (Tylenol) 650 mg PO Q4H PRN PRN Reason: Headache/Fever/Mild Pain (1-3) Last Admin: 11/15/18 08:52 Dose: 650 mg Acetaminophen (Tylenol) 650 mg [place] Q4H PRN PRN Reason: Headache/Fever/Mild Pain (1-3) Amlodipine Besylate (Norvasc) 2.5 mg PO 1200 [facility] Last Admin: 11/15/18 12:53 Dose: Not Given Aspirin (Ecotrin) 81 mg PO DAILY [facility] Last Admin: 11/15/18 08:52 Dose: 81 mg Atorvastatin Calcium (Lipitor) 20 mg PO HS [facility] Last Admin: 11/14/18 20:16 Dose: 20 mg Bisacodyl (Dulcolax) 10 mg PO DAILYPRN PRN PRN Reason: Constipation Last Admin: 11/15/18 08:58 Dose: 10 mg Carvedilol (Coreg) 25 mg PO BID [facility] Last Admin: 11/15/18 08:52 Dose: 25 mg Cyclobenzaprine HCl (Flexeril) 10 mg PO TID PRN PRN Reason: Muscle Spasm Last Admin: 11/15/18 02:19 Dose: 10 mg Dextrose/Water (Dextrose 50%) 25 gm SLOW IVP PRN PRN PRN Reason: Hypoglycemia Finasteride (Proscar) 5 mg PO HS [facility] Last Admin: 11/14/18 20:16 Dose: 5 mg Glucagon (Glucagon) 1 mg IM PRN PRN PRN Reason: Hypoglycemia Heparin Sodium (Porcine) (Heparin) 5,000 units SC BID [facility] Last Admin: 11/15/18 08:52 Dose: 5,000 units Hydralazine HCl (Apresoline) 25 mg PO TID [facility] Last Admin: 11/15/18 08:51 Dose: 25 mg Sodium Chloride (Normal Saline 0.9%) 1,000 mls @ 60 mls/hr IV .[id number] [facility] Last Admin: 11/15/18 12:48 Dose: 1,000 mls Dextrose/Water (D5w) 1,000 mls @ 0 mls/hr IV .Q0M PRN PRN Reason: Hypoglycemia Insulin Glargine 5 units/ (Miscellaneous Medication) 0.05 mls @ 0 mls/hr SC HS [facility] Last Admin: 11/14/18 20:20 Dose: 0.05 mls Indomethacin (Indocin) 100 mg ID ONCALL-OR [facility] Stop: 11/16/18 13:01 Insulin Human Lispro (Humalog) 0 units SC .MILD SLIDING SCALE PRN PRN Reason: Mild Correctional Scale Last Admin: 11/13/18 17:20 Dose: 3 unit Insulin Human Lispro (Humalog) 0 units SC .BEDTIME SLIDING SC PRN PRN Reason: Bedtime Correctional Scale Isosorbide Mononitrate (Imdur Er) 30 mg PO DAILY [facility] Last Admin: 11/15/18 08:51 Dose: 30 mg Morphine Sulfate (Morphine) 2 mg SLOW IVP Q4H PRN PRN Reason: Severe Pain (7-10) Last Admin: 11/15/18 06:38 Dose: 2 mg Ondansetron HCl (Zofran Odt) 4 mg PO Q6H PRN PRN Reason: Nausea/Vomiting Ondansetron HCl (Zofran) 4 mg IVP Q6H PRN PRN Reason: Nausea/Vomiting Pantoprazole Sodium (Protonix) 40 mg PO DAILY [facility] Last Admin: 11/15/18 08:52 Dose: 40 mg Senna/Docusate Sodium (Senokot S) 2 tab PO BIDPRN PRN PRN Reason: Constipation Last Admin: 11/15/18 02:19 Dose: 2 tab Sodium Chloride (Flush - Normal Saline) 10 ml IVF Q12HR [facility] Last Admin: 11/15/18 09:02 Dose: Not Given Sodium Chloride (Flush - Normal Saline) 10 ml IVF PRN PRN PRN Reason: Saline Flush
[2018-11-15] MEDS ORDERED: Promethazine HCl 25 MG/ML VIAL IM PRN (16:30)
[2018-11-15] MEDS ORDERED: Ondansetron HCl/PF 4 MG/2 ML Vial IVP PRN (16:30)
[2018-11-15] MEDS ORDERED: Promethazine HCl 25 MG/ML VIAL SLOW IVP PRN (16:30)
--- NOTE | 2018-11-15 18:19 | RAD ---
ERCP: HISTORY: A 68-year-old male with a history of a dilated common bile duct and possible intraductal calculus. TECHNIQUE: Two portable fluoroscopic spot films were presented for interpretation. FINDINGS: The common duct has been cannulated, a balloon distended, and contrasted injected, filling a dilated appearing common bile duct and portions of the intrahepatic ducts and common hepatic duct, with some filling of the cystic duct. No overt filling defect is seen on these two portable fluoroscopic spot views. IMPRESSION: Dilatation of the common duct, common hepatic duct, and central intrahepatic ducts. POS: SANDY
[2018-11-15] MEDS ORDERED: Glycopyrrolate 0.2 MG/ML 5 ML SYRINGE ONE (20:03)
[2018-11-15] MEDS ORDERED: PROPOFOL 200 MG/20 ML VIAL ONE (20:03)
[2018-11-15] MEDS ORDERED: PHENYLEPHRINE-NS 100 MCG/ML 10 ML SYRINGE ONE (20:03)
[2018-11-15] MEDS ORDERED: Ondansetron PF 4 MG/2 ML Vial ONE (20:03)
[2018-11-15] MEDS ORDERED: ePHEDrine/0.9% NaCl/PF SYRINGE 50 mg/10 ml ONE (20:03)
[2018-11-15] MEDS: Atorvastatin Calcium 20 MG TAB PO SCH (21:59)
[2018-11-15] MEDS: Finasteride 5 MG TAB PO SCH (22:00)
[2018-11-15] MEDS: Insulin Glargine 5 UNITS in Pre-Filled Syringe 1 EACH SC SCH (22:00)
[2018-11-16] MEDS: Sodium Chloride 0.9% 1,000 ML IV SCH ×2 (03:45→21:00)
--- NOTE | 2018-11-16 08:19 | OP ---
DATE OF PROCEDURE: 11/15/2018 PREOPERATIVE DIAGNOSIS: Choledocholithiasis by magnetic resonance cholangiopancreatography. DESCRIPTION OF PROCEDURE: After informed consent was obtained, the patient was placed in the left lateral decubitus position. Anesthesia was administered per the Anesthesia Department. Side-viewing endoscope was inserted into esophagus under direct visualization with ease and passed to the second portion of the duodenum with ease. Second portion of duodenum and duodenal bulb were normal. No mucosal abnormalities are noted. Tapered-tip cannula was inserted in the common bile duct and cholangiogram revealed a dilated biliary tree. A sphincterotomy was performed and the duct was swept with a 12 mm balloon revealing multiple small stones. Occlusion cholangiogram showed no filling defects. ASSESSMENT: Choledocholithiasis-status post sphincterotomy with stone extraction. RECOMMENDATIONS: Repeat LFTs in a.m. Job ID: [id number]
[2018-11-16] MEDS: hydrALAZINE 25 MG TAB PO SCH ×3 (08:33→21:46)
[2018-11-16] MEDS: Carvedilol 25 MG TAB PO SCH ×2 (08:33→21:45)
[2018-11-16] MEDS: Heparin 5,000 UNITS/ML VIAL SC SCH (08:36)
[2018-11-16] MEDS: Aspirin 81 mg Enteric Coated Tablet PO SCH (08:36)
[2018-11-16 10:20] LABS: ALT (SGPT) 47 U/L (8-55); AST (SGOT) 67 U/L (5-34); Alkaline Phosphatase 222 U/L (40-150); Bilirubin, Direct 0.3 mg/dL (0.1-0.3); Bilirubin, Total 0.6 mg/dL (0.2-1.2); Protein, Total 6.1 g/dL (5.8-8.1)
[2018-11-16] MEDS: Amlodipine 5 MG TAB PO SCH (13:01)
--- NOTE | 2018-11-16 14:29 | CON ---
DATE OF CONSULTATION: 11/16/2018 CONSULTING PHYSICIAN: Dr. Dougie Dunn. REASON FOR CONSULTATION: Choledocholithiasis. HISTORY OF PRESENT ILLNESS: The patient is a 68-year-old male. He presented to the hospital on 11/11/2018, complaining of abdominal pain. He stated this has been going on for about a week prior to his admission. He has had intermittent abdominal pain over the past few months. He presented to the emergency room for this. CT scan was obtained revealing some abnormalities with the kidney, but nothing obvious with the gallbladder. There was nonspecific mild dilatation. He also was noted to be anemic with a hemoglobin of 8.8. This was down from June when his hemoglobin was 10.3. The etiology of his anemia was undeciphered. GI consultation was obtained with Dr. Rodriguez. Upper and lower GI endoscopy was performed on November 13. This revealed no definite source of pain or blood loss. There were some fundic polyps within the stomach and some small polyps within the colon. Subsequent MRCP was obtained revealing what appeared to be a filling defect in the common bile duct. Dr. Dougie Dunn subsequently performed an ERCP yesterday on November 15 and cleared a common duct stone from the common bile duct. I am consulted at this time for evaluation and treatment of the gallbladder as this is the usual source of common bile duct stones. His bilirubin today is 0.6 and it has never really been elevated. His alkaline phosphatase has been elevated since his admission. His amylase is elevated today, but was not checked earlier in his hospitalization. Of note, he developed some problems with urinary retention last night, for which a Connor catheter was placed. He is on medications to help him with urination as a baseline. PAST MEDICAL HISTORY: Significant for diabetes, hypertension, coronary artery disease, hyperlipidemia. PAST SURGICAL HISTORY: Coronary artery bypass graft, bilateral eye surgery. PRIMARY CARE PHYSICIAN: Dr. Tatianna Reid. ALLERGIES: PENICILLIN. MEDICATIONS: 1. Aspirin. 2. Carvedilol. 3. Finasteride. 4. Atorvastatin. 5. Amlodipine. 6. Lantus insulin. 7. Pantoprazole. PERSONAL AND SOCIAL HISTORY: He denies tobacco or alcohol use. He is and his is present at the bedside. He has four children. 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 REVIEW OF SYSTEMS: Otherwise unremarkable. FAMILY HISTORY: Noncontributory. PHYSICAL EXAMINATION: VITAL SIGNS: Temperature is 97.9, pulse 73, blood pressure 135/63. GENERAL: Well-developed, well-nourished, pleasant male, resting in bed, in no acute distress. He is alert and oriented x3. HEAD, EYES, EARS, NOSE, AND THROAT: Unremarkable. NECK: Supple without mass or tenderness. LUNGS: Clear to auscultation throughout. CARDIAC: Regular rate and rhythm without murmur. ABDOMEN: Soft, nontender, and nondistended. He has no scars on his abdomen. There is no focal right upper quadrant tenderness. EXTREMITIES: Unremarkable. ASSESSMENT: The patient with recent choledocholithiasis and right upper quadrant pain. PLAN: Laparoscopic cholecystectomy. I have discussed the operation in detail with the patient as well as potential risks. He understands and agrees to proceed with surgery at this time. Job ID: [id number]
[2018-11-16] MEDS: Acetaminophen 325 MG TAB PO PRN (16:11)
[2018-11-16] MEDS ORDERED: Fentanyl 100 MCG/2 ML VIAL ONE ×2 (17:38→20:13)
--- NOTE | 2018-11-16 17:43 | PDOC.PN ---
- Subjective Encounter Start Date: 11/16/18 Encounter Start Time: 11:00 Pt seen for followup re: choledocholithiasis. Reports low back pain. No fevers. - Objective Resuscitation Status - Order Detail: 11/11/18 23:48 Resuscitation Status Routine Resuscitation Status: FULL: Full Resuscitation MAR Reviewed: Yes Vital Signs & Weight: Vital Signs (12 hours) Temp Pulse Resp BP Pulse Ox 11/16/18 16:30 97.6 F 72 18 103/54 L 93 L 11/16/18 14:43 73 11/16/18 13:01 73 11/16/18 11:47 97.9 F 73 18 135/63 91 L 11/16/18 08:33 68 11/16/18 08:00 95 11/16/18 07:58 97.8 F 68 18 155/83 H 95 Weight Weight 185 lb 6.54 oz I&O: 11/15/18 11/16/18 11/17/18 06:59 06:59 06:59 Intake Total 1220 Balance 1220 Result Diagrams: 11/14/18 14:29 11/14/18 14:29 Additional Labs: Accuchecks 11/16/18 11/16/18 11/16/18 16:42 11:44 04:23 POC Glucose 98 96 99 11/15/18 11/15/18 19:09 16:58 POC Glucose 180 H 115 H Labs reviewed by me Phys Exam - Physical Examination Constitutional: NAD HEENT: moist MMs Neck: supple Respiratory: clear to auscultation bilateral Cardiovascular: RRR Gastrointestinal: soft Neurological: moves all 4 limbs Psychiatric: normal affect Dx/Plan (1) Choledocholithiasis Code(s): K80.50 - CALCULUS OF BILE DUCT W/O CHOLANGITIS OR CHOLECYST W/O OBST Status: Acute Comment: s/p ERCP (2) Abdominal pain Code(s): R10.9 - UNSPECIFIED ABDOMINAL PAIN Status: Acute Comment: ? secondary to choledocholithiasis (3) Urinary retention Code(s): R33.9 - RETENTION OF URINE, UNSPECIFIED Status: Acute Comment: s/p Connor catheter insertion (4) Liver mass Code(s): R16.0 - HEPATOMEGALY, NOT ELSEWHERE CLASSIFIED Status: Acute Comment: for workup as outpt. (5) Renal cyst Code(s): N28.1 - CYST OF KIDNEY, ACQUIRED Status: Acute Comment: MRI shows cysts (6) DM2 (diabetes mellitus, type 2) Status: Chronic Comment: reasonably controlled (7) HLD (hyperlipidemia) Code(s): E78.5 - HYPERLIPIDEMIA, UNSPECIFIED Status: Chronic Comment: continue statin (8) HTN (hypertension) Code(s): I10 - ESSENTIAL (PRIMARY) HYPERTENSION Status: Chronic Comment: controlled (9) Chronic kidney disease, stage 4 (severe) Code(s): N18.4 - CHRONIC KIDNEY DISEASE, STAGE 4 (SEVERE) Status: Chronic Comment: stable, present on admission - Plan * . Review of Systems - Review of Systems Cardiovascular: negative: chest pain, palpitations, orthopnea, paroxysmal nocturnal dyspnea, edema, light headedness Gastrointestinal: negative: Nausea, Vomiting, Abdominal Pain, Diarrhea, Constipation, Melena, Hematochezia Genitourinary: Retention Musculoskeletal: Back Pain - Medications/Allergies Allergies/Adverse Reactions: Allergies Allergy/AdvReac Type Severity Reaction Status Date / Time Penicillins Allergy Severe DIFFICULTY Verified 05/20/17 13:45 BREATHING Medications: Current Medications Acetaminophen (Tylenol) 650 mg PO Q4H PRN PRN Reason: Headache/Fever/Mild Pain (1-3) Last Admin: 11/16/18 16:11 Dose: 650 mg Acetaminophen (Tylenol) 650 mg [place] Q4H PRN PRN Reason: Headache/Fever/Mild Pain (1-3) Amlodipine Besylate (Norvasc) 2.5 mg PO 1200 [facility] Last Admin: 11/16/18 13:01 Dose: Not Given Aspirin (Ecotrin) 81 mg PO DAILY [facility] Last Admin: 11/16/18 08:36 Dose: Not Given Atorvastatin Calcium (Lipitor) 20 mg PO HS [facility] Last Admin: 11/15/18 21:59 Dose: 20 mg Bisacodyl (Dulcolax) 10 mg PO DAILYPRN PRN PRN Reason: Constipation Last Admin: 11/15/18 08:58 Dose: 10 mg Carvedilol (Coreg) 25 mg PO BID [facility] Last Admin: 11/16/18 08:33 Dose: 25 mg Cyclobenzaprine HCl (Flexeril) 10 mg PO TID PRN PRN Reason: Muscle Spasm Last Admin: 11/15/18 02:19 Dose: 10 mg Dextrose/Water (Dextrose 50%) 25 gm SLOW IVP PRN PRN PRN Reason: Hypoglycemia Finasteride (Proscar) 5 mg PO [facility] Last Admin: 11/15/18 22:00 Dose: 5 mg Glucagon (Glucagon) 1 mg IM PRN PRN PRN Reason: Hypoglycemia Heparin Sodium (Porcine) (Heparin) 5,000 units SC BID [facility] Last Admin: 11/16/18 08:36 Dose: Not Given Hydralazine HCl (Apresoline) 25 mg PO TID [facility] Last Admin: 11/16/18 14:43 Dose: Not Given Sodium Chloride (Normal Saline 0.9%) 1,000 mls @ 60 mls/hr IV .[id number] [facility] Last Admin: 11/16/18 03:45 Dose: Not Given Dextrose/Water (D5w) 1,000 mls @ 0 mls/hr IV .Q0M PRN PRN Reason: Hypoglycemia Insulin Glargine 5 units/ (Miscellaneous Medication) 0.05 mls @ 0 mls/hr SC [facility] Last Admin: 11/15/18 22:00 Dose: Not Given Insulin Human Lispro (Humalog) 0 units SC .MILD SLIDING SCALE PRN PRN Reason: Mild Correctional Scale Last Admin: 11/13/18 17:20 Dose: 3 unit Insulin Human Lispro (Humalog) 0 units SC .BEDTIME SLIDING SC PRN PRN Reason: Bedtime Correctional Scale Isosorbide Mononitrate (Imdur Er) 30 mg PO DAILY [facility] Last Admin: 11/16/18 08:33 Dose: 30 mg Morphine Sulfate (Morphine) 2 mg SLOW IVP Q4H PRN PRN Reason: Severe Pain (7-10) Last Admin: 11/15/18 06:38 Dose: 2 mg Ondansetron HCl (Zofran Odt) 4 mg PO Q6H PRN PRN Reason: Nausea/Vomiting Ondansetron HCl (Zofran) 4 mg IVP Q6H PRN PRN Reason: Nausea/Vomiting Pantoprazole Sodium (Protonix) 40 mg PO DAILY [facility] Last Admin: 11/16/18 08:36 Dose: Not Given Senna/Docusate Sodium (Senokot S) 2 tab PO BIDPRN PRN PRN Reason: Constipation Last Admin: 11/15/18 02:19 Dose: 2 tab Sodium Chloride (Flush - Normal Saline) 10 ml IVF Q12HR [facility] Last Admin: 11/16/18 08:37 Dose: Not Given Sodium Chloride (Flush - Normal Saline) 10 ml IVF PRN PRN PRN Reason: Saline Flush
[2018-11-16] MEDS ORDERED: Levofloxacin 500 mg/D5W 100 ml Premix Bag ONE (18:25)
--- NOTE | 2018-11-16 19:12 | PRG ---
DATE OF SERVICE: 11/16/2018 REASON FOR CONSULTATION: Right lower quadrant abdominal pain. SUBJECTIVE: The patient underwent ERCP yesterday with the extraction of gallbladder stones within the common bile duct consistent with choledocholithiasis. Per discussion with nursing staff today (as the patient was not in his room at the time of evaluation), the patient had improved abdominal pain, but still persistent in the right lower back pain. There was no evidence of pancreatitis based on laboratory studies obtained earlier today. No other complaints or problems per nursing staff. OBJECTIVE: VITAL SIGNS: Temperature 97.6, pulse 72, blood pressure 103/54, respiratory rate 18, and saturating 93% on room air. The remainder of the physical examination could not be performed due to the patient actively being in surgery at the time of evaluation. LABORATORY DATA: Liver function tests showed an AST of 67, ALT 47, alkaline phosphatase 222, and total bilirubin 0.6. IMAGING DATA: An MRI of the abdomen obtained on November 14, 2018, showed enlargement of the common bile duct to 11 mm and mild central intrahepatic biliary dilatation. There also appeared to be a filling defect within the common bile duct consistent with choledocholithiasis. ERCP was performed on November 15, 2018, with successful cannulation of the ampulla showing the extraction of multiple small stones with balloon extraction consistent with choledocholithiasis. ASSESSMENT AND PLAN: The patient is a 68-year-old male with past medical history of coronary artery disease, hyperlipidemia, hypertension, and diabetes, presenting with complaints of midepigastric and right lower quadrant abdominal pain. Generalized abdominal pain. The patient is presenting with 3- to 4-week history of suprapubic right lower quadrant, right flank, right lower back pain, that would generalize to the midepigastric region and reach a severity of 10/10. He subsequently underwent both esophagogastroduodenoscopy and colonoscopy during this admission with relatively negative findings and no etiology for his pain seen during this examination. In the postprocedure period, he had almost complete resolution of his pain and was due to be discharged. However, on an incidental note, he had an MRI performed for a cystic lesion in the kidney and noted to have intrahepatic dilatation as well as dilatation of the extrahepatic biliary tree and filling defects in the common bile duct consistent with choledocholithiasis. He subsequently underwent ERCP on November 15, 2018, with the extraction of multiple stones from within the common bile duct. At this time, his pain seemed improved per nursing staff, which may have been due to choledocholithiasis, and he is currently down in the operating room for cholecystectomy to prevent further recurrence of this choledocholithiasis. RECOMMENDATIONS: 1. We would defer to General Surgery Team for cholecystectomy and pain control in the postoperative period. 2. Would continue the patient on PPI 40 mg daily for possible acid reflux contributing to his midepigastric abdominal pain. 3. We will follow up on the biopsy results from both EGD and colonoscopy. 4. We will follow peripherally for now. Engage the patient in the postoperative period. Please call with any additional questions. Job ID: [id number]
[2018-11-16] MEDS ORDERED: Bupivacaine/Epinephrine 0.25% 30 ML VIAL ONE (19:22)
[2018-11-16] MEDS ORDERED: Morphine 4 MG/ML VIAL ONE (19:54)
[2018-11-16] MEDS ORDERED: HYDROcodone/Acetaminophen 5/325 mg Tablet PO PRN (19:57)
[2018-11-16] MEDS ORDERED: Glycopyrrolate 0.2 MG/ML 5 ML SYRINGE ONE (21:18)
[2018-11-16] MEDS ORDERED: Lidocaine 1% PF 5 ML VIAL ONE (21:18)
[2018-11-16] MEDS ORDERED: PROPOFOL 200 MG/20 ML VIAL ONE (21:18)
[2018-11-16] MEDS ORDERED: Ondansetron PF 4 MG/2 ML Vial ONE (21:18)
[2018-11-16] MEDS: Insulin Glargine 5 UNITS in Pre-Filled Syringe 1 EACH SC SCH (21:43)
[2018-11-16] MEDS: Atorvastatin Calcium 20 MG TAB PO SCH (21:45)
[2018-11-16] MEDS: HYDROcodone/Acetaminophen 5/325 mg Tablet PO PRN (22:33)
[2018-11-16] MEDS: Finasteride 5 MG TAB PO SCH (22:56)
--- NOTE | 2018-11-17 02:34 | CON ---
DATE OF CONSULTATION: 11/16/2018 PRIMARY CARE PHYSICIAN: Dr. Reid. REFERRING: Hospitalist due to gross hematuria. HISTORY OF PRESENT ILLNESS: Mr. Young is a 68-year-old male admitted on November 12 due to nonspecific right upper quadrant abdominal discomfort. The patient with a history of chronic kidney disease, followed by Nephrology, Dr. Noland. Known history of renal cysts, also being surveilled by Nephrology. The patient with a history of BPH, relates that he has been on finasteride for the last few years provided by Primary Care. at bedside, relates that they have never been on Flomax, prior cystoscopy or surgical intervention for BPH. There is no prior history of urinary retention. The patient had sensation of incomplete void. Nursing staff placed a Connor catheter, however, there was no significant output. Apparently, the Connor balloon was inflated near the prostate region. It was deflated and advanced to the level of the bladder and 400 mL of hematuria postvoid residual was obtained. Currently, it is draining light red urine. The patient appears comfortable. He is currently being pre-oped for Dr. Yuan about to undergo laparoscopic cholecystectomy. He has been seen by GI due to right abdominal discomfort, relates that he has had a bowel prep and had limited intake. Last bowel movement approximately 2 to 3 days ago. He denies gross hematuria, dysuria, prior history of UTI. There is a history of prior CT without contrast obtained on November 11, 2018 in [place], which demonstrates no acute intraabdominal process. There is a complex left lower pole endophytic renal cyst with peripheral calcification, Hounsfield unit 30 and noncontrast, read as suspicious. He did have a followup MRI in-house as he presents with abdominal discomfort without contrast that read as bilateral renal cyst. There was a possible filling defect in the common bile duct. He did undergo ERCP, colonoscopy earlier on this admission and is prepped for laparoscopic cholecystectomy. MRI was also demonstrating nonspecific right hepatic mass. MRI with and without IV contrast or liver mass. CT is advised at a later point. GI is following the case. PAST MEDICAL HISTORY: Includes diabetes type 2, coronary artery disease, status post cardiac stent, hyperlipidemia, hypertension. REVIEW OF SYSTEMS: Ten point review of systems as above, otherwise, noncontributory. SURGICAL HISTORY: CABG x4, left eye surgery, right eye surgery for retinal detachment. PSYCHIATRIC HISTORY: No evidence of significant psychiatric history. SOCIAL HISTORY: Denied illicit drug use, alcohol or tobacco abuse. ALLERGIES: HE IS ALLERGIC TO PENICILLIN. CURRENT MEDICATIONS: Include: 1. Tylenol. 2. Norvasc. 3. Lipitor. 4. Dulcolax. 5. Coreg. 6. Flexeril. 7. Finasteride. 8. Glucagon. 9. Hydralazine. 10. Insulin sliding scale. PHYSICAL EXAMINATION: VITAL SIGNS: Stable. He is afebrile. HEENT: Unremarkable. HEART: Regular rate. LUNGS: Clear. ABDOMEN: Soft. No rigidity. No rebound. No suprapubic tenderness or CVA tenderness is appreciated. : Uncircumcised phallus. There is old dry blood at the level of the meatus. Testes are descended with mild bilateral reactive hydrocele. Digital rectal exam demonstrates JUVENAL approximately 35 to 40 g with no discrete nodularity of concern. EXTREMITIES: No cyanosis, clubbing, or edema. : Procedure at bedside. His Connor catheter is draining uneventfully. The color of the urine in the bag is plum hue, there is no bright red blood appreciated in the tubing. I did gently irrigate his Connor catheter demonstrating one tiny scant clot subsequently irrigated to clear. Catheter is adequately secured. PERTINENT LABS: White count 5, hemoglobin 8.4, platelet 211. Baseline creatinine in 2012 to 2016 variable from 0.8 to 1.6. March of 2018, 2.54. July of 2018 , 3.64. November 11, 2018, creatinine of 4.0. November 14, 2018, creatinine of 3.45. INR in April of 2017 was 1.2. PTT of 30. Hemoglobin A1c in April of 2017 was 6.6. Elevated liver enzymes. PSA in January of 2013 was 0.75. UA on admission, November 11, 300 protein, 250 of glucose, 0 to 3 rbc's, 0 to 3 wbc's. IMAGING DATA: CT of the abdomen and pelvis stone protocol November 11, 2018, no acute abdominal process. Complex lesion in the left mid pole endophytic with mild thin peripheral calcification measuring 2.6 cm. Hounsfield units 30. Second left lower pole anterior mesophytic 2.2 cm simple cyst. Prostate is mildly enlarged. Per my review, CT prostate volume approximately 40 g. MRI without contrast November 14, 2018, well-circumcised bilateral renal cyst. Possible filling defect in the common bile duct. Nonspecific right hepatic mass. Recommended with and without IV contrast. IMPRESSION AND PLAN: 1. Mr. Young is a 68-year-old male with a history of diabetes, coronary artery disease, current admission due to right upper quadrant abdominal discomfort, undergoing Gastroenterology and General Surgery evaluation. Laparoscopic cholecystectomy preop today. 2. Urologic issues of benign prostatic hyperplasia, he has been on finasteride for the last few years per PCP. 3. Traumatic Connor catheter placement resulting in gross hematuria. As per nursing staff, Connor catheter was improperly placed with balloon inflated prior to entering the bladder and subsequently deflated, now draining uneventfully for 400 mL of postvoid residual. The patient does have incomplete void, recommend Flomax in adjunct to finasteride. Informed patient the Flomax is the first line of treatment for benign prostatic hypertrophy. If urine output is relatively clear in the next few days, I will certainly consider a voiding trial. If subsequent persistent gross hematuria, we will leave indwelling Connor catheter until this clears. Discuss with General Surger, anticoagulation will be held. 4. Obtain urinalysis culture and sensitivity, elective outpatient cystoscopy is advised. 5. Complex left renal cyst, incidental. I did review the CT myself demonstrating thin peripheral calcification in the left endophytic renal cyst. This will need to be surveyed. MRI read was read as a simple cyst. Surveillance imaging is advised. Job ID: [id number] MTDD
[2018-11-17] MEDS: Morphine 4 MG/ML VIAL SLOW IVP PRN (04:11)
[2018-11-17 04:47] LABS: Bilirubin Negative (Negative); Blood, Urine Large (Negative); Clarity CLOUDY (Clear); Glucose, Urine (Dipstick) 100 mg/dL (Negative); Leukocyte Negative (Negative); Nitrite Negative (Negative); Protein, Urine (Dipstick) 300 mg/dL (Neg-Trace); Specific Gravity, Urine 1.015 (1.002-1.036); Urobilinogen 0.2 mg/dL (0.2-1.0)
[2018-11-17 04:51] LABS: Bacteria/HPF None Seen HPF (None Seen); Hyaline Casts/LPF 7-10 HYALINE CAST LPF (0-3 Hyaline); Pathc Cast-AUWi Flag 1.59 (0-2.49); Squamous Epithelial 0-3 HPF (0-3)
[2018-11-17 04:52] LABS: Yeast-AUWi Flag 50.1 (0-25.0)
[2018-11-17 05:10] LABS: Renal Epithelial None Seen HPF (0-3); Transitional Epithelial NONE SEEN HPF (0-3); Yeast-All Forms None Seen HPF (None Seen)
[2018-11-17 06:26] LABS: #Lymphocytes 0.7 thou/uL (1.20-3.40); #Monocytes 0.6 thou/uL (0.11-0.59); #Neutrophils 5.1 thou/uL (1.40-6.50); %Eosinophils 0.5 % (0.0-10.0); %Lymphocytes 11.2 % (21.0-51.0); %Monocytes 9.8 % (0.0-10.0); %Neutrophils 78.5 % (42.0-75.0); Hemoglobin 8.2 g/dL (14.0-18.0); Mean Corpuscular HGB CONC 33.7 g/dL (32.0-36.0); Mean Corpuscular Hemoglobin 31.9 pg (27.0-31.0); Mean Corpuscular Volume 94.6 fL (78.0-98.0); Platelet Count 226 thou/uL (130-400); RBC Distribution Width 12.7 % (11.5-14.5); Red Blood Cell (RBC) Count 2.57 mill/uL (4.70-6.10); White Blood Cell (WBC) Count 6.5 thou/uL (4.8-10.8)
[2018-11-17 06:46] LABS: ALT (SGPT) 54 U/L (8-55); AST (SGOT) 73 U/L (5-34); Albumin 2.7 g/dL (3.4-4.8); Alkaline Phosphatase 197 U/L (40-150); Anion Gap 18 mmol/L (10-20); BUN (Urea Nitrogen) 39 mg/dL (8.4-25.7); Bilirubin, Total 0.5 mg/dL (0.2-1.2); Calc. Creatinine Clearance 23 mL/min (70-130); Calcium 8.6 mg/dL (7.8-10.44); Carbon Dioxide 15 mmol/L (23-31); Chloride 113 mmol/L (98-107); Estimated GFR-MDRD 17; Globulin 2.8 g/dL (2.4-3.5); Glucose 87 mg/dL (80-115); Potassium 4.5 mmol/L (3.5-5.1); Protein, Total 5.5 g/dL (5.8-8.1); Sodium 141 mmol/L (136-145)
[2018-11-17] MEDS: HYDROcodone/Acetaminophen 5/325 mg Tablet PO PRN ×2 (07:51→11:48)
[2018-11-17] MEDS: Tamsulosin HCl 0.4 MG CAP PO SCH (07:51)
[2018-11-17] MEDS: Aspirin 81 mg Enteric Coated Tablet PO SCH (07:51)
[2018-11-17] MEDS: hydrALAZINE 25 MG TAB PO SCH ×3 (07:51→20:19)
[2018-11-17] MEDS: Carvedilol 25 MG TAB PO SCH ×2 (07:56→20:19)
--- NOTE | 2018-11-17 10:05 | PRG ---
DATE OF SERVICE: 11/17/2018 SUBJECTIVE: Mr. Young is postoperative day #1 from laparoscopic cholecystectomy. He had an ERCP performed the previous day for a choledocholithiasis. His surgery yesterday was uneventful. This morning, he is eating breakfast. He tells me he has a diminished appetite, but denies nausea or vomiting. He has some mild appropriate discomfort. OBJECTIVE: On examination, he is afebrile. Vital signs within normal limits. LABORATORY STUDIES: Reveal essentially normal CBC (he has chronic anemia with a hemoglobin of 8.2). His chemistry profile reveals stable renal insufficiency with a creatinine of 3.5. His bilirubin is normal. Alkaline phosphatase is down from 220 to 197. His amylase is down from 174 to 135. ASSESSMENT AND PLAN: He is doing well following laparoscopic cholecystectomy and previous endoscopic retrograde cholangiopancreatography. He is stable for discharge at anytime. I will see him in followup in my office in 2 weeks. Job ID: [id number]
--- NOTE | 2018-11-17 10:05 | PRG ---
DATE OF SERVICE: 11/17/2018 SUBJECTIVE: The patient is resting comfortably. at bedside. OBJECTIVE: VITAL SIGNS: Stable. I's and O's 725 of clear yellow urine in the tubing and bag. It is tea colored. No gross hematuria of concern or clots. ABDOMEN: Soft. No rigidity. No rebound. PERTINENT LABORATORY DATA: White count today is 6, hemoglobin is 8.2, platelet 226, creatinine is 3.53. Initial UA prior to traumatic Connor catheter placement demonstrates no evidence of microscopic hematuria. Yesterday urinalysis from catheter specimen demonstrates 7 to 10 rbc's, 7 to 10 wbc's, no bacteria, 300 protein, 100 glucose, consistent with medical renal disease. Initial urine culture negative November 11. Repeat culture is pending. IMPRESSION AND PLAN: Mr. Young is a 68-year-old male with, 1. History of abdominal pain. GI, General Surgery workup status post laparoscopic cholecystectomy postop day #1. 2. History of benign prostatic hyperplasia, previously on Proscar by PCP. 3. Urologic consultation obtained due to traumatic Connor catheter placement resulting in gross hematuria. 4. History of incomplete void with appropriate Connor catheter placement as initial Connor was inflated in his prostate. Demonstrates 400 mL of postvoid residual. RECOMMENDATION: His Connor catheter is clear with no significant gross hematuria of concern. As he is recently recovering from surgery, I will leave the catheter in situ. Flomax has been initiated. Pending his clinical course. will consider voiding trial in a few days. The patient and family were informed regarding risks of stricture disease due to traumatic Connor catheter placement. Job ID: [id number] [facility]
[2018-11-17] MEDS: Amlodipine 5 MG TAB PO SCH (11:45)
[2018-11-17] MEDS: Sodium Chloride 0.9% 1,000 ML IV SCH (11:46)
--- NOTE | 2018-11-17 13:35 | PDOC.PN ---
- Subjective Encounter Start Date: 11/17/18 Encounter Start Time: 09:20 Pt seen for followup re: choledocholithiasis. Feels better. - Objective Resuscitation Status - Order Detail: 11/11/18 23:48 Resuscitation Status Routine Resuscitation Status: FULL: Full Resuscitation MAR Reviewed: Yes Vital Signs & Weight: Vital Signs (12 hours) Temp Pulse Resp BP Pulse Ox 11/17/18 11:45 83 11/17/18 08:00 96 11/17/18 07:53 98.0 F 83 16 126/65 96 11/17/18 07:51 85 11/17/18 04:00 98 F 85 18 159/70 H 97 Weight Weight 185 lb 6.54 oz I&O: 11/16/18 11/17/18 11/18/18 06:59 06:59 06:59 Intake Total 600 240 Output Total 725 Balance -125 240 Result Diagrams: 11/17/18 05:54 11/17/18 05:54 Additional Labs: Accuchecks 11/17/18 11/17/18 11/16/18 12:07 05:33 21:07 POC Glucose 136 H 90 121 H 11/16/18 11/15/18 16:42 16:58 POC Glucose 98 115 H Labs reviewed by me Phys Exam - Physical Examination Constitutional: NAD HEENT: moist MMs Neck: supple Respiratory: clear to auscultation bilateral Gastrointestinal: soft, non-tender, positive bowel sounds Neurological: moves all 4 limbs Psychiatric: normal affect Dx/Plan (1) Choledocholithiasis Code(s): K80.50 - CALCULUS OF BILE DUCT W/O CHOLANGITIS OR CHOLECYST W/O OBST Status: Acute Comment: s/p ERCP and cholecystectomy (2) Abdominal pain Code(s): R10.9 - UNSPECIFIED ABDOMINAL PAIN Status: Acute Comment: Improved (3) Urinary retention Code(s): R33.9 - RETENTION OF URINE, UNSPECIFIED Status: Acute Comment: s/p traumatic Connor catheter insertion; appreciate urology service input. (4) Liver mass Code(s): R16.0 - HEPATOMEGALY, NOT ELSEWHERE CLASSIFIED Status: Acute Comment: for workup as outpt. (5) Renal cyst Code(s): N28.1 - CYST OF KIDNEY, ACQUIRED Status: Acute Comment: MRI shows cysts (6) DM2 (diabetes mellitus, type 2) Status: Chronic Comment: reasonably controlled (7) HLD (hyperlipidemia) Code(s): E78.5 - HYPERLIPIDEMIA, UNSPECIFIED Status: Chronic Comment: on statin (8) HTN (hypertension) Code(s): I10 - ESSENTIAL (PRIMARY) HYPERTENSION Status: Chronic Comment: controlled (9) Chronic kidney disease, stage 4 (severe) Code(s): N18.4 - CHRONIC KIDNEY DISEASE, STAGE 4 (SEVERE) Status: Chronic Comment: stable, present on admission - Plan * . Review of Systems - Review of Systems Cardiovascular: negative: chest pain, palpitations, orthopnea, paroxysmal nocturnal dyspnea, edema, light headedness Gastrointestinal: negative: Nausea, Vomiting, Abdominal Pain, Diarrhea, Constipation, Melena, Hematochezia Genitourinary: Hematuria - Medications/Allergies Allergies/Adverse Reactions: Allergies Allergy/AdvReac Type Severity Reaction Status Date / Time Penicillins Allergy Severe DIFFICULTY Verified 05/20/17 13:45 BREATHING Medications: Current Medications Acetaminophen (Tylenol) 650 mg PO Q4H PRN PRN Reason: Headache/Fever/Mild Pain (1-3) Last Admin: 11/16/18 16:11 Dose: 650 mg Acetaminophen (Tylenol) 650 mg MT Q4H PRN PRN Reason: Headache/Fever/Mild Pain (1-3) Hydrocodone Bitart/Acetaminophen ([place] 5/325) 1 tab PO Q4H PRN PRN Reason: Pain 4-6 Last Admin: 11/17/18 11:48 Dose: 1 tab Amlodipine Besylate (Norvasc) 2.5 mg PO 1200 [facility] Last Admin: 11/17/18 11:45 Dose: 2.5 mg Aspirin (Ecotrin) 81 mg PO DAILY [facility] Last Admin: 11/17/18 07:51 Dose: 81 mg Atorvastatin Calcium (Lipitor) 20 mg PO HS [facility] Last Admin: 11/16/18 21:45 Dose: 20 mg Bisacodyl (Dulcolax) 10 mg PO DAILYPRN PRN PRN Reason: Constipation Last Admin: 11/15/18 08:58 Dose: 10 mg Carvedilol (Coreg) 25 mg PO BID [facility] Last Admin: 11/17/18 07:56 Dose: 25 mg Cyclobenzaprine HCl (Flexeril) 10 mg PO TID PRN PRN Reason: Muscle Spasm Last Admin: 11/15/18 02:19 Dose: 10 mg Dextrose/Water (Dextrose 50%) 25 gm SLOW IVP PRN PRN PRN Reason: Hypoglycemia Finasteride (Proscar) 5 mg PO [facility] Last Admin: 11/16/18 22:56 Dose: 5 mg Glucagon (Glucagon) 1 mg IM PRN PRN PRN Reason: Hypoglycemia Hydralazine HCl (Apresoline) 25 mg PO TID [facility] Last Admin: 11/17/18 07:51 Dose: 25 mg Sodium Chloride (Normal Saline 0.9%) 1,000 mls @ 60 mls/hr IV .[id number] [facility] Last Admin: 11/17/18 11:46 Dose: 1,000 mls Dextrose/Water (D5w) 1,000 mls @ 0 mls/hr IV .Q0M PRN PRN Reason: Hypoglycemia Insulin Glargine 5 units/ (Miscellaneous Medication) 0.05 mls @ 0 mls/hr SC [facility] Last Admin: 11/16/18 21:43 Dose: Not Given Insulin Human Lispro (Humalog) 0 units SC .MILD SLIDING SCALE PRN PRN Reason: Mild Correctional Scale Last Admin: 11/13/18 17:20 Dose: 3 unit Insulin Human Lispro (Humalog) 0 units SC .BEDTIME SLIDING SC PRN PRN Reason: Bedtime Correctional Scale Isosorbide Mononitrate (Imdur Er) 30 mg PO DAILY [facility] Last Admin: 11/17/18 07:51 Dose: 30 mg Morphine Sulfate (Morphine) 2 mg SLOW IVP Q4H PRN PRN Reason: Severe Pain (7-10) Last Admin: 11/17/18 04:11 Dose: 2 mg Ondansetron HCl (Zofran Odt) 4 mg PO Q6H PRN PRN Reason: Nausea/Vomiting Ondansetron HCl (Zofran) 4 mg IVP Q6H PRN PRN Reason: Nausea/Vomiting Pantoprazole Sodium (Protonix) 40 mg PO DAILY [facility] Last Admin: 11/17/18 07:51 Dose: 40 mg Senna/Docusate Sodium (Senokot S) 2 tab PO BIDPRN PRN PRN Reason: Constipation Last Admin: 11/15/18 02:19 Dose: 2 tab Sodium Chloride (Flush - Normal Saline) 10 ml IVF Q12HR [facility] Last Admin: 11/17/18 07:55 Dose: Not Given Sodium Chloride (Flush - Normal Saline) 10 ml IVF PRN PRN PRN Reason: Saline Flush Tamsulosin HCl (Flomax) 0.4 mg PO DAILY [facility] Last Admin: 11/17/18 07:51 Dose: 0.4 mg
--- NOTE | 2018-11-17 16:37 | PRG ---
DATE OF SERVICE: 11/17/2018 SUBJECTIVE: The patient is feeling better. He has eaten today. He is currently waiting on urologist because of some blood in his urine. OBJECTIVE: VITAL SIGNS: Temperature 98.0, pulse 83, respiratory rate 16, and blood pressure 126/65. CHEST: Clear. CARDIOVASCULAR: Regular rate and rhythm. ABDOMEN: Tender without rebound or guarding. LABORATORY DATA: CO2 of 15, BUN 39, creatinine 3.53, AST of 73, ALT of 54, and alkaline phosphatase of 197. Amylase is 135. ASSESSMENT: Choledocholithiasis - status post sphincterotomy and stone extraction. RECOMMENDATIONS: 1. Recheck LFTs as an outpatient to make sure those have normalized. 2. Stable for discharge from GI standpoint. 3. We will sign off. Job ID: [id number]
[2018-11-17] MEDS: Insulin Glargine 5 UNITS in Pre-Filled Syringe 1 EACH SC SCH (20:10)
[2018-11-17] MEDS: Atorvastatin Calcium 20 MG TAB PO SCH (20:19)
[2018-11-17] MEDS: Finasteride 5 MG TAB PO SCH (20:19)
[2018-11-17] MEDS: Acetaminophen 325 MG TAB PO PRN (20:56)
[2018-11-18] MEDS: Senokot S 8.6-50 MG TAB PO PRN (03:06)
[2018-11-18] MEDS: Sodium Chloride 0.9% 1,000 ML IV SCH (03:43)
[2018-11-18] MEDS: Acetaminophen 325 MG TAB PO PRN (06:05)
[2018-11-18] MEDS: hydrALAZINE 25 MG TAB PO SCH ×2 (07:59→14:49)
[2018-11-18] MEDS: Carvedilol 25 MG TAB PO SCH (07:59)
[2018-11-18] MEDS: Aspirin 81 mg Enteric Coated Tablet PO SCH (07:59)
[2018-11-18] MEDS: Tamsulosin HCl 0.4 MG CAP PO SCH (07:59)
[2018-11-18 09:27] LABS: #Eosinphils 0.2 thou/uL (0.0-0.7); #Lymphocytes 1.1 thou/uL (1.20-3.40); #Monocytes 0.7 thou/uL (0.11-0.59); #Neutrophils 4.2 thou/uL (1.40-6.50); %Basophils 0.1 % (0.0-1.0); %Eosinophils 3.3 % (0.0-10.0); %Lymphocytes 17.5 % (21.0-51.0); %Monocytes 11.8 % (0.0-10.0); %Neutrophils 67.3 % (42.0-75.0); Hemoglobin 8.6 g/dL (14.0-18.0); Mean Corpuscular HGB CONC 33.7 g/dL (32.0-36.0); Mean Corpuscular Hemoglobin 31.8 pg (27.0-31.0); Mean Corpuscular Volume 94.4 fL (78.0-98.0); Mean Platelet Volume 6.8 fL (7.4-10.4); Platelet Count 294 thou/uL (130-400); RBC Distribution Width 12.5 % (11.5-14.5); Red Blood Cell (RBC) Count 2.69 mill/uL (4.70-6.10); White Blood Cell (WBC) Count 6.2 thou/uL (4.8-10.8)
[2018-11-18 09:41] LABS: ALT (SGPT) 63 U/L (8-55); AST (SGOT) 86 U/L (5-34); Alkaline Phosphatase 202 U/L (40-150); Anion Gap 13 mmol/L (10-20); BUN (Urea Nitrogen) 43 mg/dL (8.4-25.7); Bilirubin, Total 0.5 mg/dL (0.2-1.2); Calc. Creatinine Clearance 21 mL/min (70-130); Calcium 8.9 mg/dL (7.8-10.44); Carbon Dioxide 18 mmol/L (23-31); Chloride 110 mmol/L (98-107); Estimated GFR-MDRD 15; Globulin 3.1 g/dL (2.4-3.5); Glucose 177 mg/dL (80-115); Potassium 4.5 mmol/L (3.5-5.1); Protein, Total 6.1 g/dL (5.8-8.1); Sodium 136 mmol/L (136-145)
--- NOTE | 2018-11-18 09:56 | PRG ---
DATE OF SERVICE: 11/18/2018 SUBJECTIVE: The patient without complaints, doing well. Urine output is clear. OBJECTIVE: VITAL SIGNS: Stable. Afebrile. Urine output 680. Repeat urine culture negative. ABDOMEN: Soft, nontender, and nondistended. : Connor catheter draining clear yellow urine. PERTINENT LABORATORY DATA: Kidney function, creatinine 3.53. Repeat urine culture negative. Catheterized urine does demonstrate microscopic hematuria as expected. IMPRESSION AND PLAN: Mr. Young is a 68-year-old male, Citizen Of [place]-speaking, admitted for abdominal pain, status post laparoscopic cholecystectomy, doing well. 1. Urologic issues of benign prostatic hyperplasia, previously on Proscar by PCP for numerous years. 2. Urologic consultation obtained due to traumatic Connor catheter placement with gross hematuria. Initial PVR 400 mL. His urine output is clear. The patient is to be discharged today. As such, I will initiate a voiding trial. Nurse to contact me regarding postvoid residual. If no significant postvoid residual concern, Connor catheter will not be replaced. He should be discharged with Flomax 0.4 mg one p.o. daily, in addition to his Proscar. followup with me in chart. Addendum patient voided 380, PVR minimal 40 mL cleared by for discharge Job ID: [id number] [facility]
[2018-11-18] MEDS ORDERED: Polyethylene Glycol 3350 17 GM Packet PO ONE (10:00)
[2018-11-18] MEDS ORDERED: Magnesium Citrate 300 ML BOT PO SCH (10:00)
[2018-11-18] MEDS: Amlodipine 5 MG TAB PO SCH (11:37)
[2018-11-18 11:47] LABS: Reticulocyte Count 2.2 % (0.5-1.5)
[2018-11-18 12:00] VITALS: BP 107/56; TEMP 97.9
[2018-11-18 12:10] LABS: Uric Acid 9.9 mg/dL (3.5-7.2)
[2018-11-18] MEDS ORDERED: Bisacodyl 10 MG SUPP PR SCH (12:30)
[2018-11-18 12:42] LABS: Folate (Folic Acid) 7.9 ng/mL (7.0-31.4)
--- NOTE | 2018-11-18 15:41 | CON ---
DATE OF CONSULTATION: REASON FOR CONSULTATION: Lymphoma. HISTORY OF PRESENT ILLNESS: A 68-year-old male with history of CAD, CKD, hypertension, presenting to the hospital on November 12, 2018, with right-sided abdominal pain, which had worsened for the last week prior to admission. The patient had an episode of nausea and vomiting x1 and then presented to the ER. The patient's pain was 10/10 and radiating to the back. Since admission, the patient has undergone EGD and colonoscopy, which showed a normal esophagus. 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 Colonoscopy showed multiple small polyps in the ascending, transverse, and descending colon. The patient has also undergone cholecystectomy and pathology was benign. The patient's pain is currently much improved and he denies any current nausea or vomiting. The patient does state over the last couple months, his energy has worsened. He has been having chills at home and drenching night sweats along with worsening fatigue. He denies any unintentional weight loss. He states that his appetite is good and denies any early satiety. The patient is a former smoker of 1 up to 3 packs per day, but quit approximately 10 years ago. He denies any alcohol use. FAMILY HISTORY: There is no family history of lymphoma. There is cancer in his family, but it is unclear what type. REVIEW OF SYSTEMS: Ten-point review of systems negative except as per HPI. PAST MEDICAL HISTORY: Diabetes, CAD, status post stenting and CABG, hyperlipidemia, hypertension, and CKD, stage 4. PAST SURGICAL HISTORY: Four-vessel CABG, left eye surgery, right eye surgery for retinal detachment, and cholecystectomy. SOCIAL HISTORY: Former tobacco abuse from 1 to 3 packs a day, quit approximately 10 years ago in [id number]. Denies any alcohol use or other drug use. The patient is currently retired. ALLERGIES: PENICILLIN. CURRENT MEDICATIONS: Reviewed. PHYSICAL EXAMINATION: VITAL SIGNS: Temperature 97.9, pulse 77, respirations 18, saturating 93% on room air, and blood pressure 107/56. GENERAL: The patient is sitting up in a chair, in no acute distress. HEENT: Normocephalic and atraumatic. There is no scleral icterus noted. NECK: Supple. LUNGS: Clear to auscultation bilaterally without wheezes, rales, or rhonchi. CARDIAC: Regular S1 and S2 with regular rhythm and rate without murmurs, rubs, or gallops. ABDOMEN: Soft and nondistended with minimal tenderness to palpation in upper quadrants. LYMPHATICS: There is no palpable lymphadenopathy in the cervical, axillary, or inguinal chains. There is no palpable hepatosplenomegaly. EXTREMITIES: There is no edema. NEUROLOGIC: Cranial nerves II through XII are grossly intact and otherwise nonfocal. SKIN: There is no rash. PSYCHIATRIC: Awake, alert, and oriented x3 with appropriate mood and affect. LABORATORY DATA: White blood cells 6.2, hemoglobin 8.6, and platelets 294. Reticulocytes are 2.2. Sodium 136, potassium 4.5, BUN 45, creatinine 3.91, glucose 238, uric acid 9.9. LDH 2206, iron 60, TIBC 195, percent saturation 31. AST 86, ALT 63, and alkaline phosphatase 202. IMAGING DATA: MRI of the abdomen without contrast dated November 14, 2018, which shows a 1.9 cm lesion demonstrating high T2 signal and low T1 signal in the right lobe of the liver, which is nonspecific and cannot be completely assessed without IV contrast. No loss of signal seen in the liver on [id number] images to suggest fatty infiltration and multiple well-circumscribed cysts in both kidneys. Gallbladder was distended with enlargement of the common bile duct to 11 mm and mild central intrahepatic biliary dilatation. Pathology reports cholecystectomy specimen of the gallbladder shows chronic cholecystitis and cholelithiasis without dysplasia or malignancy, chronic hyperplastic polyp and tubular adenomas without any dysplasia. Fundus polyp from the stomach shows high-grade B-cell lymphoma. No H. pylori is present. Tumor cells are negative for CK7, CK20, c-kit, S-100, CD3, CD5, CD10, CD30, and Cyclin D1, and were diffusely positive for CD20, CD79a, CD45 and patchy positive for Bcl-2 approximately 50% with a Ki-67 of approximately 95%. ASSESSMENT AND PLAN: A 68-year-old male presenting with worsening abdominal pain, found to have acute cholecystitis as well as gastric fundus polyp, which showed high-grade B-cell lymphoma with a Ki-67 approximately 95%. The patient has been having B-symptoms such as fatigue and drenching night sweats at home over the last couple months; however, does not have any signs or symptoms from splenomegaly and has no palpable peripheral lymphadenopathy. Pathologic specimen has been referred out for further additional immunohisto stain and FISH analysis, and the patient requires further workup of the lymphoma with a PET scan, which can be done as an outpatient. The patient is being planned for discharge. He currently is on a trial of void after removal of Connor catheter. We will arrange outpatient PET scan and follow up with me in clinic for ongoing care of his newly-diagnosed B- cell lymphoma. They ordered LDH, which was extremely elevated as his uric acid at 9.9. We would recommend starting with renally-dosed allopurinol at this time. The patient's 1.9 cm liver mass is very nonspecific and difficult to assess with the inability to use contrast media with CT and MRI. We will evaluate this lesion on PET scan and this could be from lymphoma. We will follow this patient, if he is not discharged, otherwise we will see in clinic. Thank you for this consult. Job ID: [id number] MTDD
--- NOTE | 2018-11-18 21:44 | CON ---
DATE OF CONSULTATION: NEPHROLOGY CONSULTATION REASON FOR CONSULTATION: Elevated creatinine. HISTORY OF PRESENT ILLNESS: This is a very pleasant 68-year-old gentleman being seen in CKD Clinic, presented to the hospital with a baseline creatinine of 3.8, which improved to 3.5, back to 3.9. The patient has a history of CKD and is followed by Dr. Noland at [facility]. The patient denies any headache, numbness, tingling, or weakness. Denies any nausea, vomiting, or chest pain. PAST MEDICAL HISTORY: Significant for hypertension, diabetes mellitus, CKD, anemia, history of colon polyp, history of gastric polyp, history of cardiac cath, and coronary artery disease. FAMILY HISTORY: Negative ESRD. MEDICATIONS: Home medication list reviewed. Hospital medication list reviewed. ALLERGIES: REVIEWED. PHYSICAL EXAMINATION: GENERAL: The patient is awake, alert. VITAL SIGNS: Afebrile, pulse 75, breathing 16, and blood pressure 107/56. GENERAL APPEARANCE AND MENTAL STATUS: Fair. HEAD/NECK: Normocephalic. Atraumatic. EYES: EOMI. No deformity. EARS: Clear. No ulcers. NOSE: Intact. No lesions. MOUTH: Clear. No discharge. THROAT: Clear. No exudate. LUNGS: Clear. No crackles. CARDIAC: S1, S2. No rub. ABDOMEN: Benign. Bowel sounds positive. GENITALIA/RECTUM: Connor absent. BACK/EXTREMITIES: Edema 0+. NEUROLOGICAL: Alert and motor intact. LABORATORY DATA: Labs show creatinine 3.9, hemoglobin is 8.6. ASSESSMENT: 1. Stage 4 to 5 chronic kidney disease, stable. 2. Hypertension, stable. 3. Anemia, stable. RECOMMENDATIONS: I would recommend starting Epogen. The patient will follow up to see me in 1 week. Job ID: [id number]
[2018-11-19] MEDS ORDERED: Polyethylene Glycol 3350 17 GM Packet PO SCH (09:00)
[2018-11-19] MEDS ORDERED: Amlodipine 5 MG TAB PO SCH (09:00)
--- NOTE | 2018-11-19 11:10 | OP ---
DATE OF PROCEDURE: 11/16/2018 PREOPERATIVE DIAGNOSIS: Recent history of choledocholithiasis. POSTOPERATIVE DIAGNOSIS: Recent history of choledocholithiasis. OPERATION PERFORMED: Laparoscopic cholecystectomy. ANESTHESIA: General endotracheal. INDICATIONS FOR PROCEDURE: The patient is a 68-year-old male. He presented to the hospital with complaint of upper abdominal pain. He underwent evaluation per Gastroenterology, and an MRCP revealed a filling defect in the common bile duct. A subsequent ERCP was performed with extraction of the common bile duct stone. He was taken to the operative room at this time for laparoscopic cholecystectomy secondary to the likelihood of further cholelithiasis complicating this current problem. PROCEDURE IN DETAIL: Informed consent was obtained. The patient was taken to the operating room where general endotracheal anesthesia was obtained with the patient in the supine position. The abdomen was prepped with Betadine and draped in the usual sterile fashion. 0.25% Marcaine with epinephrine was infiltrated below the umbilicus and a 10 mm infraumbilical incision was created. A Veress needle was passed through this incision into the peritoneal cavity. A pneumoperitoneum was established using carbon dioxide up to a pressure of 15 mmHg. Local anesthetic was infiltrated and 3 additional 5 mm right upper quadrant incisions were created. Through the mid incision, a 5 mm port was passed into the peritoneal cavity. The camera was passed through this port and under direct vision, an 11 port was passed through the infraumbilical incision. The camera was replaced through this port, and under direct vision, 2 additional 5 mm ports were passed through the incisions already created. The gallbladder was grasped and retracted in a cephalad direction. Minimal adhesions were bluntly stripped away from the apex of the gallbladder, and the apex was retracted laterally and inferiorly. Careful dissection was carried out to the apex of the gallbladder to identify the cystic duct and cystic artery. These were each carefully dissected circumferentially. The duct was of normal caliber. Both the duct and the artery were divided between clips, leaving 2 on the side to remain within the abdomen. The gallbladder was then dissected out of the gallbladder fossa using electrocautery and removed through the infraumbilical port site. The fascia was closed with 0 Vicryl suture and a GraNee needle. The right upper quadrant was inspected and irrigated. All irrigant was aspirated. All ports and instruments were removed under direct vision. Pneumoperitoneum was carefully evacuated. Additional local anesthetic was infiltrated into each port site. The skin edges were approximated with 4-0 Monocryl subcuticular sutures, and Dermabond was placed externally. There were no complications. The patient tolerated the procedure well and was taken to the recovery room in stable condition. FINDINGS: The patient's gallbladder was without acute inflammation, but there were significant adhesions coating the outside of the gallbladder, indicative of recent history of inflammation of the gallbladder. The duct was without substantial dilatation. A cholangiogram was not performed. There was essentially no blood loss during the operation, and there were no complications. The patient tolerated the procedure well and was taken to the recovery room in stable condition. Job ID: [id number]
--- NOTE | 2018-11-19 11:41 | DIS ---
DATE OF ADMISSION: 11/12/2018 DATE OF DISCHARGE: 11/18/2018 PRIMARY CARE PROVIDER: Tatianna Reid MD DISCHARGE DIAGNOSES: 1. Choledocholithiasis. 2. High-grade B-cell lymphoma. 3. Gastric polyps. 4. Colon polyps. 5. Urinary retention. 6. Liver mass. 7. Renal cysts. CONDITION: Condition of the patient on the day of discharge: Stable. I assessed Mr. Young on the day of discharge. He denies any chest pain or shortness of breath. Vital signs are stable. S1 and S2 are heard, regular. Lungs are clear to auscultation bilaterally. CONSULTATIONS DURING THIS HOSPITALIZATION: 1. Gastroenterology, Dr. Rodriguez. 2. General Surgery, Dr. Yuan. 3. Oncology, Dr. De Jesus. 4. Urology, Dr. Shen. DISCHARGE MEDICATIONS: 1. Amlodipine 5 mg daily. 2. Aspirin 325 mg daily. 3. Atorvastatin 20 mg at bedtime. 4. Carvedilol 25 mg 2 times a day. 5. Finasteride 5 mg at bedtime. 6. Lasix 20 mg as needed. 7. Lantus insulin dose decreased to 5 units at nighttime. 8. Flomax 0.4 mg daily. HOSPITAL COURSE: Mr. Young is a pleasant 68-year-old gentleman, who was admitted to [facility] on November 12, 2018, for abdominal pain. Please refer to Dr. Tracey's history and physical note dated November 12, 2018, for further details. He was seen by Gastroenterology Service. On November 13, he underwent bidirectional scopes. He was found to have gastric polyps and colonic polyps, which were biopsied. He continued to have abdominal pain. He had MRI of the abdomen, which showed possible filling defect in the common bile duct, bilateral renal cysts, nonspecific right hepatic mass, and possible enlargement of the insular hepatic duct versus cystic lesions involving the insular portion of the pancreas. He went onto have ERCP on November 15, 2018, and was status post sphincterotomy with stone extraction. He was seen by General Surgery Service and underwent cholecystectomy on November 17, 2018. Gastric polyp extracted during EGD was positive for high-grade B-cell lymphoma. He was seen by Oncology Service prior to discharge. Oncology Service will follow up as outpatient. Many thanks for allowing me to participate in your patient's care. Please feel free to contact me with any questions or concerns. DISCHARGE DESTINATION: Home. TOTAL AMOUNT OF TIME SPENT IN COORDINATING THIS DISCHARGE: 33 minutes. Job ID: [id number]
== END 2018-11-18 16:20 | disposition home or self-care (01) | DRG 418 ==
LOC: ERS 21:10 → T4-B 11-12 00:31
PROVIDERS: ADMIT Internal Medicine; ATTEND Internal Medicine
PROC: 0DB68ZX Excision of Stomach, Via Natural or Artificial Opening Endoscopic, Diagnostic (ICD-10-PCS; 2018-11-13)
PROC: 0DBK8ZX Excision of Ascending Colon, Via Natural or Artificial Opening Endoscopic, Diagnostic (ICD-10-PCS; 2018-11-13)
PROC: 0DBL8ZX Excision of Transverse Colon, Via Natural or Artificial Opening Endoscopic, Diagnostic (ICD-10-PCS; 2018-11-13)
PROC: 0DBM8ZX Excision of Descending Colon, Via Natural or Artificial Opening Endoscopic, Diagnostic (ICD-10-PCS; 2018-11-13)
PROC: 0FC98ZZ Extirpation of Matter from Common Bile Duct, Via Natural or Artificial Opening Endoscopic (ICD-10-PCS; principal; 2018-11-15)
PROC: 0FT44ZZ Resection of Gallbladder, Percutaneous Endoscopic Approach (ICD-10-PCS; 2018-11-16)
DX: K80.50 Calculus of bile duct without cholangitis or cholecystitis without obstruction (principal); N18.4 Chronic kidney disease, stage 4 (severe); C85.19 Unspecified B-cell lymphoma, extranodal and solid organ sites; I25.10 Atherosclerotic heart disease of native coronary artery without angina pectoris; E78.5 Hyperlipidemia, unspecified; K64.8 Other hemorrhoids; K64.4 Residual hemorrhoidal skin tags; K63.5 Polyp of colon; I12.9 Hypertensive chronic kidney disease with stage 1 through stage 4 chronic kidney disease, or unspecified chronic kidney disease; E11.22 Type 2 diabetes mellitus with diabetic chronic kidney disease; N40.0 Benign prostatic hyperplasia without lower urinary tract symptoms; R16.0 Hepatomegaly, not elsewhere classified; R33.9 Retention of urine, unspecified; Z87.891 Personal history of nicotine dependence; Z88.0 Allergy status to penicillin; Z79.82 Long term (current) use of aspirin; Z79.4 Long term (current) use of insulin; Z79.899 Other long term (current) drug therapy; Z95.5 Presence of coronary angioplasty implant and graft; Z95.1 Presence of aortocoronary bypass graft
CPT/HCPCS: 36415; 36416; 71045; 74176; 74181; 74330; 76705; 80053; 80069; 80076; 81001; 81003; 81015; 82150; 82607; 82668; 82728; 82746; 83540; 83550; 83605; 83615; 83690; 84484; 84550; 85007; 85025; 85027; 85046; 87086; 88304; 88305; 88312; 88341; 88342; 88360; 93005; 94760; 96361; 96374; 96375; J1610; J1644; J1956; J2001; J2270; J2405; J2704; J3010; Q0162; Q9961; S0028

== ENCOUNTER 2018-11-25 11:59 | Outpatient (CLI) | payer MEDICARE ==
--- NOTE | 2018-11-25 15:28 | PET ---
PET WITH CT SULL TO MID THIGH. CLINICAL HISTORY: B-cell lymphoma. RADIOPHARMACEUTICAL: 10.3 mCi fluorine-18 FDG IV mixed with 10 cc 0.9% sodium chloride. RADIOTRACER DISTRIBUTION: There is appropriate physiologic distribution of radiotracer activity. FINDINGS: There is extensive, widespread hypermetabolic osseous metastatic disease involving the imaged face, d iffusely throughout the spine, and involving the bilateral aspects of the appendicular skeleton, thro ughout the imaged upper and lower extremities and extensively within the pelvis, bilaterally. Diffus e bilateral rib involvement is present. SUV of the diffuse osseous metastases ranges to a maximum ne aring 20. Within the right department store door greeter space, there is hypermetabolic adenopathy with SUV of 2.9. Medial left s upraclavicular adenopathy measures 6.7 SUV. Extensive retroperitoneal adenopathy is present with a l arge right retroperitoneal lymph node demonstrating SUV of 11.7. Within the left retroperitoneum, TA V measures 2.8. There is a markedly hypermetabolic aortocaval lymph node with SUV of 19, and a jane caval lymph node with SUV of 4.8. Hypermetabolic lesions of the liver are seen within the posterior segment right hepatic lobe, SUV 8.2, as well as within the lateral segment left hepatic lobe, SUV 3.6 . Borderline activity is seen within small mesenteric lymph node with SUV of 2.0. There are mild bilateral pleural effusions. There is fat stranding about a site of prior cystostomy. There is diffuse vascular disease. Mild scattered ascites is present. Mild prominence of the urina ry bladder wall. IMPRESSION: Widespread metastatic disease with extensive osseous metastatic disease and diffuse hypermetabolic ad enopathy. Deauville score of 5 for markedly higher uptake, relative to the hepatic parenchyma POS: [facility]
== END 2018-11-25 12:00 | disposition home or self-care (01) ==
LOC: PET 11:59
PROVIDERS: ATTEND Internal Medicine Hematology & Oncology
DX: C85.10 Unspecified B-cell lymphoma, unspecified site (principal); C79.51 Secondary malignant neoplasm of bone
CPT/HCPCS: 78815; A9552

== ENCOUNTER 2018-11-25 15:45 | Day surgery (SDC) | payer MEDICARE ==
[2018-11-25 16:53] VITALS: BMI 27.1
[2018-11-26 00:26] VITALS: BP 157/68; TEMP 97.7
== END 2018-11-25 23:22 | disposition home or self-care (01) ==
LOC: SDC/OP 15:45 → T4-A 16:39 → SDC/OP 23:22
PROVIDERS: ATTEND Internal Medicine Nephrology
PROC: 30233N1 Transfusion of Nonautologous Red Blood Cells into Peripheral Vein, Percutaneous Approach (ICD-10-PCS; principal; 2018-11-25)
DX: D64.9 Anemia, unspecified (principal); Z79.82 Long term (current) use of aspirin; Z79.899 Other long term (current) drug therapy
CPT/HCPCS: 36430; 78815; 82570; 82962; 84156; 86850; 86900; 86901; 86920; A9552; P9016; 36415; 36416

== ENCOUNTER 2018-12-01 12:23 | Day surgery (SDC) | payer MEDICARE ==
[2018-11-26 15:55] VITALS: BMI 27.1
[2018-12-01 13:02] LABS: #Eosinphils 0.3 thou/uL (0.0-0.7); #Lymphocytes 1.2 thou/uL (1.20-3.40); #Monocytes 0.8 thou/uL (0.11-0.59); #Neutrophils 4.3 thou/uL (1.40-6.50); %Basophils 0.4 % (0.0-1.0); %Eosinophils 4.8 % (0.0-10.0); %Lymphocytes 17.4 % (21.0-51.0); %Monocytes 12.3 % (0.0-10.0); %Neutrophils 65.1 % (42.0-75.0); Hemoglobin 8.1 g/dL (14.0-18.0); Mean Corpuscular HGB CONC 33.2 g/dL (32.0-36.0); Mean Corpuscular Hemoglobin 30.8 pg (27.0-31.0); Mean Corpuscular Volume 92.6 fL (78.0-98.0); Mean Platelet Volume 6.8 fL (7.4-10.4); Platelet Count 302 thou/uL (130-400); RBC Distribution Width 12.8 % (11.5-14.5); Red Blood Cell (RBC) Count 2.62 mill/uL (4.70-6.10); White Blood Cell (WBC) Count 6.6 thou/uL (4.8-10.8)
[2018-12-01 13:21] LABS: Anion Gap 15 mmol/L (10-20); BUN (Urea Nitrogen) 40 mg/dL (8.4-25.7); Calc. Creatinine Clearance 24 mL/min (70-130); Calcium 8.9 mg/dL (7.8-10.44); Carbon Dioxide 21 mmol/L (23-31); Chloride 106 mmol/L (98-107); Estimated GFR-MDRD 18; Glucose 91 mg/dL (80-115); Potassium 4.8 mmol/L (3.5-5.1); Sodium 137 mmol/L (136-145)
[2018-12-01] MEDS ORDERED: Fentanyl 100 MCG/2 ML VIAL ONE (13:29)
[2018-12-01] MEDS ORDERED: Midazolam HCl 2 mg/2 ml Vial ONE (13:39)
[2018-12-01] MEDS ORDERED: Bupivacaine/Epinephrine 0.25% 30 ML VIAL ONE (13:41)
[2018-12-01] MEDS ORDERED: Lidocaine 1% (PF) 30 ML VIAL ONE (13:41)
[2018-12-01] MEDS ORDERED: Levofloxacin 500 mg/D5W 100 ml Premix Bag ONE (13:49)
[2018-12-01] MEDS ORDERED: Ketorolac Tromethamine 30 MG/ML VIAL ONE (13:52)
--- NOTE | 2018-12-01 17:25 | RAD ---
PORTABLE AP CHEST: Date: 12/01/18 HISTORY: Post MediPort placement. COMPARISON: 11/11/18. FINDINGS: There has been interval placement of a right subclavian MediPort catheter with tip overlying the dist al SVC. There is no evidence of a pneumothorax. Postsurgical changes related to median sternotomy are again noted. There are increased interstitial and alveolar opacities seen at the medial right lung b ase, which may be related to pneumonia or aspiration pneumonitis. Linear densities are also seen in t he left mid lung, which could be related to atelectasis or developing area of pneumonitis. Vascular c alcifications seen in thoracic aorta. No other interval change. IMPRESSION: 1. Interstitial and alveolar opacities at the right lung base, which may be related to pneumonia or possibly aspiration pneumonitis. There is atelectasis versus developing pneumonitis in the left mid l bryn zone. 2. Interval placement of right subclavian MediPort catheter without evidence of pneumothorax. 3. Continued follow-up to resolution of parenchymal abnormalities recommended. POS: [facility]
--- NOTE | 2018-12-02 10:37 | OP ---
DATE OF PROCEDURE: 12/01/2018 PREOPERATIVE DIAGNOSIS: Lymphoma. POSTOPERATIVE DIAGNOSIS: Lymphoma. PROCEDURE PERFORMED: Placement of a standard size power compatible right subclavian MediPort. ANESTHESIA: General endotracheal. INDICATIONS: The patient is a 68-year-old male who has recently been diagnosed with metastatic lymphoma. He was taken to the operating room this time for placement of a port for chemotherapy administration. DESCRIPTION OF PROCEDURE: Informed consent was obtained. The patient was taken to the operating room where total intravenous anesthesia was obtained with the patient in supine position. Right periclavicular area was prepped with ChloraPrep and draped in sterile fashion. Local anesthetic was infiltrated and a large-gauge needle was passed under the clavicle in the subclavian vein. Guidewire was passed through the needle and fluoroscopically confirmed to enter the superior vena cava. Additional local anesthetic was infiltrated and transverse incision was created based on needle insertion site. A subcutaneous pocket was dissected inferiorly. Introducer dilator was passed over the guidewire under fluoroscopic guidance. The guidewire and dilator were removed, and the catheter was passed through the introducer. The tip of the catheter was positioned at the atriocaval junction and the catheter was trimmed to the appropriate length and secured to the locking hub of the MediPort. The port was then placed in the subcutaneous pocket where it was secured to the pectoral fascia with 2 interrupted sutures of 3-0 Prolene. The incision was then closed in layers with 3-0 and 4-0 Monocryl. Additional local anesthetic was infiltrated. The port was cannulated with a Seymour needle and it aspirated blood freely and was flushed with heparinized saline. Dermabond was placed externally on the skin incision. There were no complications. Blood loss was negligible. The patient tolerated the procedure well and was taken to recovery room in stable condition. FINDINGS: A standard size port was selected. It was placed uneventfully into the right subclavian vein. The patient had typical anatomy externally and internally. Fluoroscopy was utilized. There were no complications and essentially no blood loss. The patient tolerated the procedure well and was taken to recovery room in stable condition. Job ID: [id number]
== END 2018-12-01 16:17 | disposition home or self-care (01) ==
LOC: SDC 12:23
PROVIDERS: ATTEND Specialist
PROC: 02HV33Z Insertion of Infusion Device into Superior Vena Cava, Percutaneous Approach (ICD-10-PCS; principal; 2018-12-01)
PROC: B518ZZA Fluoroscopy of Superior Vena Cava, Guidance (ICD-10-PCS; 2018-12-01)
DX: C85.90 Non-Hodgkin lymphoma, unspecified, unspecified site (principal)
CPT/HCPCS: 36561; 71045; 80048; 85025; C1788; 36415; J0131; J1642; J1885; J1956; J2001; J2250; J3010

== ENCOUNTER 2018-12-03 12:22 | Outpatient (CLI) | payer MEDICARE, OTHER | END 2018-12-03 12:23 | disposition home or self-care (01) | LOC: ULT 12:22 | PROVIDERS: ATTEND Internal Medicine Hematology & Oncology | DX: Z51.11 Encounter for antineoplastic chemotherapy (principal); C83.39 Diffuse large B-cell lymphoma, extranodal and solid organ sites; I08.3 Combined rheumatic disorders of mitral, aortic and tricuspid valves; Z79.899 Other long term (current) drug therapy | CPT/HCPCS: 93306 ==

== ENCOUNTER 2018-12-09 06:57 | Day surgery (SDC) | payer MEDICARE ==
[~2018-12-09 06:57] MED LIST: Prevnar 13-Val Conj/PF 0.5 ML SYRINGE IM ONE
[2018-12-09 07:30] LABS: INR-International Normal Ratio 1.3; PTT 36.5 SEC (22.9-36.1); Prothrombin Time 15.8 SEC (12.0-14.7)
[2018-12-09 08:41] VITALS: BP 143/71; TEMP 98.6
[2018-12-09] MEDS ORDERED: Sodium Bicarbonate 2.5 MEQ/5 ML VIAL ONE (09:24)
[2018-12-09] MEDS ORDERED: Fentanyl 100 MCG/2 ML VIAL ONE (09:24)
[2018-12-09] MEDS ORDERED: Midazolam HCl 2 mg/2 ml Vial ONE (09:24)
[2018-12-09 10:29] LABS: CSF, Glucose 61 mg/dl (40-70); CSF, Protein 39 mg/dL (15-40)
[2018-12-09 11:58] LABS: CSF Source CSF; Clarity Clear (Clear); Tube # 4; WBC/NonHematics Count - Manual 3 /cumm (0-5)
[2018-12-09 11:59] LABS: RBC Count - Manual 173 /cumm (None Seen)
--- NOTE | 2018-12-09 12:02 | RAD ---
FLUOROSCOPIC GUIDED LUMBAR PUNCTURE FOR CSF COLLECTION: Indication: Patient is diagnosed with lymphoma. CSF collection for CSF study is requested. Afternoon Nanny view shows a grade I spondylolisthesis of L5-S1 with mild to moderate degenerative changes of t he lumbar spine. A 20 gauge spinal needle was used to enter the thecal sac at the L3 level using a paramidline approac h from the left under fluoroscopic guidance. Clear CSF was recovered. 1 cc CSF placed in three consecutive test tubes. 5 cc collected in the fourt h test tube. PROCEDURE NOTE: Procedure was discussed with the patient. The patient was placed prone on the fluoro table. The lower back was prepped and draped in a sterile manner. Local anesthesia was administered with Lidocaine un jovita fluoroscopic guidance at the L3 level. A 20 gauge spinal needle was used to enter the thecal sac using a paramidline approach from the left with fluoroscopic guidance. Clear CSF was recovered and co llected as noted above. The patient tolerated the procedure well with no problems or complications. POS: [facility]
--- NOTE | 2018-12-09 12:20 | CT ---
PROCEDURE: CT guided bone marrow biopsy. INDICATION: Large B-cell lymphoma. Bone marrow biopsy is requested. FINDINGS: An 11 gauge PowerDrive bone marrow biopsy instrument was used. The guide needle with trocar in place was introduced into the posterior left iliac spine suing CT guidance. The trocar was removed and aspirate was attempted. No blood could be recovered. The needle was in ebenezer quate position as noted by CT. A dry aspirate was obtained. PowerDrive was then attached and a 2.5-3.0 cm length core bone specimen was obtained and given to pat hology heat treatment technician at the bedside. PROCEDURE NOTE: The procedure was discussed with the patient. The patient was placed prone on the CT table. CT scan o btained. Skin entry site was identified over the left posterior iliac spine. The skin was prepped and draped in the sterile manner. Local anesthesia was administered with lidocaine and bicarb. The 11 gauge PowerDrive instrument was used. The guide needle with trocar was introduced under CT nimo dance into the left ilium. The needle was placed deep within the bone marrow as confirmed with CT. As piration was attempted multiple times with dry aspirate obtained with each attempt. PowerDrive instrument was then attached and a 2.5-3.0 cm length core bone specimen was obtained. Postprocedure CT showed no evidence of hematoma. The patient tolerated the procedure well, with no pr oblems or complications. POS: [facility]
[2018-12-09 16:57] LABS: Unspun CSF Color COLORLESS (Colorless)
[2018-12-09 17:00] LABS: Color Of CSF Supernatant COLORLESS (Colorless)
[2018-12-09 17:01] LABS: Tube # 1
== END 2018-12-09 11:05 | disposition home or self-care (01) ==
LOC: RAD 06:57
PROVIDERS: ATTEND Internal Medicine Hematology & Oncology
PROC: 009U3ZX Drainage of Spinal Canal, Percutaneous Approach, Diagnostic (ICD-10-PCS; principal; 2018-12-09)
PROC: 07DR3ZX Extraction of Iliac Bone Marrow, Percutaneous Approach, Diagnostic (ICD-10-PCS; 2018-12-09)
DX: C83.39 Diffuse large B-cell lymphoma, extranodal and solid organ sites (principal); I25.10 Atherosclerotic heart disease of native coronary artery without angina pectoris; I12.9 Hypertensive chronic kidney disease with stage 1 through stage 4 chronic kidney disease, or unspecified chronic kidney disease; E11.22 Type 2 diabetes mellitus with diabetic chronic kidney disease; N18.4 Chronic kidney disease, stage 4 (severe); E78.5 Hyperlipidemia, unspecified; Z87.891 Personal history of nicotine dependence; Z79.82 Long term (current) use of aspirin; Z79.899 Other long term (current) drug therapy; Z88.0 Allergy status to penicillin; Z95.1 Presence of aortocoronary bypass graft
CPT/HCPCS: 20225; 62270; 77012; 82945; 84157; 85610; 85730; 88112; 88184; 88237; 88264; 88280; 88305; 88311; 88313; 88341; 88342; 89051; J2250; J3010

== ENCOUNTER 2018-12-11 19:19 | Inpatient (IN) | payer MEDICARE ==
[2018-12-11 19:51] LABS: #Basophils 0.1 thou/uL (0.0-0.2); #Eosinphils 0.7 thou/uL (0.0-0.7); #Lymphocytes 1.2 thou/uL (1.20-3.40); #Monocytes 1.1 thou/uL (0.11-0.59); #Neutrophils 4.6 thou/uL (1.40-6.50); %Eosinophils 9.7 % (0.0-10.0); %Lymphocytes 15.6 % (21.0-51.0); %Monocytes 14.3 % (0.0-10.0); %Neutrophils 59.5 % (42.0-75.0); Hemoglobin 8.2 g/dL (14.0-18.0); Mean Corpuscular HGB CONC 32.8 g/dL (32.0-36.0); Mean Corpuscular Hemoglobin 30.8 pg (27.0-31.0); Mean Corpuscular Volume 93.9 fL (78.0-98.0); Mean Platelet Volume 6.9 fL (7.4-10.4); Platelet Count 275 thou/uL (130-400); RBC Distribution Width 13.3 % (11.5-14.5); Red Blood Cell (RBC) Count 2.65 mill/uL (4.70-6.10); White Blood Cell (WBC) Count 7.7 thou/uL (4.8-10.8)
--- NOTE | 2018-12-11 20:09 | RAD ---
EXAM: CHEST ONE VIEW: 12/11/18 HISTORY: Chest pain. History of lymphoma. COMPARISON: 12/01/18. FINDINGS: Right subclavian catheter injection port. Postop midline sternotomy. Mild cardiomegaly. Mild bilatera l vascular congestion and small pleural effusions but with an improved appearance from 12/01/18 study w hen there appeared to be bilateral edema. No confluent lobar pneumonia. IMPRESSION: Cardiomegaly with bilateral vascular congestion and small left pleural effusion but showing overall i mprovement from 12/01/18. POS: [facility]
[2018-12-11 20:14] LABS: ALT (SGPT) 17 U/L (8-55); AST (SGOT) 46 U/L (5-34); Albumin 2.6 g/dL (3.4-4.8); Alkaline Phosphatase 190 U/L (40-150); Anion Gap 16 mmol/L (10-20); BUN (Urea Nitrogen) 51 mg/dL (8.4-25.7); Bilirubin, Total 0.4 mg/dL (0.2-1.2); CK (CPK) 129 U/L (30-200); Calc. Creatinine Clearance 0 mL/min (70-130); Calcium 9.3 mg/dL (7.8-10.44); Carbon Dioxide 22 mmol/L (23-31); Chloride 103 mmol/L (98-107); Estimated GFR-MDRD 16; Globulin 3.2 g/dL (2.4-3.5); Glucose 171 mg/dL (80-115); Lipase 11 U/L (8-78); Potassium 5.8 mmol/L (3.5-5.1); Protein, Total 5.8 g/dL (5.8-8.1); Sodium 135 mmol/L (136-145)
[2018-12-11 20:34] LABS: CKMB 5.8 ng/mL (0-6.6)
[2018-12-11] MEDS ORDERED: Ondansetron PF 4 MG/2 ML Vial ONE (20:51)
[2018-12-11] MEDS ORDERED: Morphine 4 MG/ML VIAL ONE (21:06)
[2018-12-11 23:40] LABS: Troponin I 0.055 ng/mL (< 0.028)
[2018-12-11] MEDS ORDERED: Fentanyl 100 MCG/2 ML VIAL ONE (23:43)
[2018-12-12] LABS: Lactic Acid 2.4 mmol/L (0.5-2.2)
[2018-12-12 00:17] LABS: Bilirubin Negative (Negative); Blood, Urine Moderate (Negative); Clarity CLEAR (Clear); Glucose, Urine (Dipstick) 100 mg/dL (Negative); Leukocyte Negative (Negative); Nitrite Negative (Negative); Protein, Urine (Dipstick) 300 mg/dL (Neg-Trace); Specific Gravity, Urine 1.013 (1.002-1.036); Urobilinogen 0.2 mg/dL (0.2-1.0); pH, Urine 6.5 (5.0-9.0)
[2018-12-12 00:20] LABS: Bacteria/HPF None Seen HPF (None Seen); Hyaline Casts/LPF 0-3 HYALINE CAST LPF (0-3 Hyaline); Pathc Cast-AUWi Flag 0.43 (0-2.49); RBC/HPF 0-3 HPF (0-3); Squamous Epithelial 0-3 HPF (0-3); WBC/HPF 0-3 HPF (0-3)
[2018-12-12] MEDS ORDERED: Nitroglycerin 0.4 MG TAB (25 Tab Bottle) PO PRN (00:41)
[2018-12-12] MEDS ORDERED: Senokot S 8.6-50 MG TAB PO PRN (00:41)
[2018-12-12] MEDS ORDERED: Calcium Carbonate 500 MG ChewTAB PO PRN (00:41)
[2018-12-12] MEDS ORDERED: Acetaminophen 650 MG Suppository PR PRN (00:41)
[2018-12-12] MEDS ORDERED: Bisacodyl 10 MG SUPP PR PRN (00:41)
[2018-12-12] MEDS ORDERED: Zolpidem Tartrate 5 MG TAB PO PRN (00:41)
[2018-12-12] MEDS ORDERED: Furosemide 20 MG TAB PO PRN (00:48)
[2018-12-12] MEDS ORDERED: HumaLOG 300 UNITS/3 ML VIAL SC PRN ×2 (00:49)
[2018-12-12] MEDS ORDERED: Dextrose 50% Abboject 50 ML SYRINGE SLOW IVP PRN (00:49)
[2018-12-12] MEDS ORDERED: Dextrose 5% in Water 1,000 ML IV PRN (00:49)
[2018-12-12 01:30] LABS: #Basophils 0.1 thou/uL (0.0-0.2); #Eosinphils 0.4 thou/uL (0.0-0.7); #Monocytes 0.9 thou/uL (0.11-0.59); #Neutrophils 4.3 thou/uL (1.40-6.50); %Eosinophils 6.2 % (0.0-10.0); %Lymphocytes 14.4 % (21.0-51.0); %Monocytes 14.1 % (0.0-10.0); %Neutrophils 64.2 % (42.0-75.0); Hemoglobin 7.9 g/dL (14.0-18.0); Mean Corpuscular Hemoglobin 30.9 pg (27.0-31.0); Mean Corpuscular Volume 93.7 fL (78.0-98.0); Mean Platelet Volume 6.7 fL (7.4-10.4); Platelet Count 230 thou/uL (130-400); RBC Distribution Width 13.3 % (11.5-14.5); Red Blood Cell (RBC) Count 2.57 mill/uL (4.70-6.10); White Blood Cell (WBC) Count 6.7 thou/uL (4.8-10.8)
[2018-12-12 01:47] LABS: Iron 21 ug/dL (65-175); Iron Binding Capacity, Total 183 mcg/dL (261-462)
[2018-12-12 01:52] LABS: Troponin I 0.059 ng/mL (< 0.028)
[2018-12-12] MEDS ORDERED: HYDROcodone/Acetaminophen 5/325 mg Tablet ONE ×2 (01:57→08:52)
[2018-12-12] MEDS: HYDROcodone/Acetaminophen 5/325 mg Tablet PO PRN ×3 (02:00→19:55)
[2018-12-12] MEDS ORDERED: Temazepam 15 MG CAP PO SCH (02:00)
[2018-12-12 03:44] LABS: #Eosinphils 0.4 thou/uL (0.0-0.7); #Lymphocytes 0.9 thou/uL (1.20-3.40); #Monocytes 0.9 thou/uL (0.11-0.59); #Neutrophils 3.9 thou/uL (1.40-6.50); %Basophils 0.6 % (0.0-1.0); %Eosinophils 6.1 % (0.0-10.0); %Lymphocytes 14.8 % (21.0-51.0); %Monocytes 14.2 % (0.0-10.0); %Neutrophils 64.3 % (42.0-75.0); Hemoglobin 7.1 g/dL (14.0-18.0); Mean Corpuscular HGB CONC 33.4 g/dL (32.0-36.0); Mean Corpuscular Hemoglobin 31.3 pg (27.0-31.0); Mean Corpuscular Volume 93.5 fL (78.0-98.0); Mean Platelet Volume 6.7 fL (7.4-10.4); Platelet Count 215 thou/uL (130-400); RBC Distribution Width 13.2 % (11.5-14.5); Red Blood Cell (RBC) Count 2.26 mill/uL (4.70-6.10); White Blood Cell (WBC) Count 6.1 thou/uL (4.8-10.8)
[2018-12-12 04:14] LABS: Anion Gap 10 mmol/L (10-20); BUN (Urea Nitrogen) 49 mg/dL (8.4-25.7); Calc. Creatinine Clearance 0 mL/min (70-130); Calcium 8.8 mg/dL (7.8-10.44); Carbon Dioxide 24 mmol/L (23-31); Chloride 105 mmol/L (98-107); Cholesterol 113 mg/dl (< 200 Desired); Estimated GFR-MDRD 18; Glucose 149 mg/dL (80-115); HDL Cholesterol Less than 8 mg/dL (>60 Neg Risk); Potassium 5.1 mmol/L (3.5-5.1); Sodium 134 mmol/L (136-145); Triglycerides 251 mg/dL (Less than 150)
[2018-12-12 04:19] LABS: Cardiac Risk 14.8 (Less than 4.5); LDL Cholesterol, Calculated 59 mg/dL
[2018-12-12] MEDS: Sodium Chloride 0.9% 1,000 ML IV SCH ×2 (04:38→22:09)
[2018-12-12] MEDS ORDERED: HumaLOG 300 UNITS/3 ML VIAL ONE (08:16)
[2018-12-12] MEDS ORDERED: Nitroglycerin 2% Ointment 1 INCH/1 GM Packet ONE (08:16)
[2018-12-12] MEDS ORDERED: Aspirin 325 MG TAB ONE (08:16)
[2018-12-12] MEDS: Nitroglycerin 2% Ointment 1 INCH/1 GM Packet TOP SCH ×3 (08:19→20:12)
[2018-12-12] MEDS: Aspirin 325 mg Enteric Coated Tablet PO SCH (08:25)
[2018-12-12] MEDS: Carvedilol 25 MG TAB PO SCH ×2 (08:34→20:06)
[2018-12-12] MEDS: Famotidine/PF 20 mg/2ml Vial SLOW IVP SCH (08:35)
[2018-12-12] MEDS: Famotidine 20 MG TAB PO SCH (08:38)
[2018-12-12] MEDS: Heparin 5,000 UNITS/ML VIAL SC SCH ×2 (08:39→20:02)
[2018-12-12] MEDS: Allopurinol 100 MG TAB PO SCH ×2 (08:45→20:01)
--- NOTE | 2018-12-12 09:51 | PDOC.PN ---
- Subjective Encounter Start Date: 12/12/18 Encounter Start Time: 09:50 Subjective: Seen and examined complaining of generalised pain - Objective Resuscitation Status - Order Detail: 12/12/18 00:41 Resuscitation Status Routine Resuscitation Status: FULL: Full Resuscitation Vital Signs & Weight: Vital Signs (12 hours) Temp Pulse BP 12/12/18 09:05 98.3 F 75 157/73 H Weight Weight 180 lb I&O: 12/11/18 12/12/18 12/13/18 06:59 06:59 06:59 Intake Total 120 Balance 120 Result Diagrams: 12/12/18 03:32 12/12/18 03:32 Additional Labs: Accuchecks 12/12/18 08:21 POC Glucose 119 H Phys Exam - Physical Examination Constitutional: NAD HEENT: PERRLA, moist MMs, sclera anicteric Neck: no nodes, supple Respiratory: no wheezing, no rales, no rhonchi Cardiovascular: RRR, no significant murmur, no rub Gastrointestinal: soft, non-tender, no distention Musculoskeletal: no edema, pulses present Dx/Plan (1) Abdominal pain, chronic, generalized Code(s): R10.84 - GENERALIZED ABDOMINAL PAIN; G89.29 - OTHER CHRONIC PAIN Status: Acute (2) Abdominal pain, acute, generalized Code(s): R10.84 - GENERALIZED ABDOMINAL PAIN Status: Acute (3) Hx of CABG Status: Acute (4) Liver mass Code(s): R16.0 - HEPATOMEGALY, NOT ELSEWHERE CLASSIFIED Status: Acute Comment: for workup as outpt. (5) Systolic CHF, acute on chronic Code(s): I50.23 - ACUTE ON CHRONIC SYSTOLIC (CONGESTIVE) HEART FAILURE Status : Acute (6) Chronic kidney disease, stage 4 (severe) Code(s): N18.4 - CHRONIC KIDNEY DISEASE, STAGE 4 (SEVERE) Status: Chronic Comment: stable, present on admission (7) DM2 (diabetes mellitus, type 2) Status: Chronic Comment: reasonably controlled (8) HTN (hypertension) Code(s): I10 - ESSENTIAL (PRIMARY) HYPERTENSION Status: Chronic Comment: controlled - Plan PT/OT Pain management -: Oncology consult with Dr De Jesus -: May need transfusion -defer to Oncology * .
[2018-12-12] MEDS: Acetaminophen 325 MG TAB PO PRN (12:18)
[2018-12-12] MEDS: Morphine 2 MG/ML SYRINGE SLOW IVP PRN (12:40)
[2018-12-12] MEDS ORDERED: traMADol HCl 50 MG TAB PO PRN ×2 (17:18)
[2018-12-12 18:09] LABS: Uric Acid 6.6 mg/dL (3.5-7.2)
[2018-12-12] MEDS: Finasteride 5 MG TAB PO SCH (20:01)
[2018-12-12] MEDS: Atorvastatin Calcium 20 MG TAB PO SCH (20:02)
--- NOTE | 2018-12-12 20:10 | CON ---
DATE OF CONSULTATION: REASON FOR CONSULTATION: Lymphoma. HISTORY OF PRESENT ILLNESS: Mr. Young is a 68-year-old male with newly diagnosed diffuse large B cell lymphoma. He initially presented to the hospital in October with right-sided abdominal pain. He underwent endoscopy which showed multiple polyps in the gastric cardia. Biopsy showed a high-grade B-cell lymphoma with a Ki-67 of 95%. Pathology confirmed diffuse large B-cell lymphoma, double-expressor phenotype with high risk factors. The patient underwent a PET scan that showed widespread bone metastatic disease including the face, spine, bilateral upper and lower extremities, pelvis, bilateral rib involvement. He also had hypermetabolic adenopathy in the right residential property consultant space, left supraclavicular retroperitoneal aortocaval and portacaval and liver lesions in both lobes. He underwent an echo, his ejection fraction was 50%. He underwent a lumbar puncture and a bone marrow biopsy. He was to have a MediPort placed and required clearance from his drama therapist prior to beginning any chemotherapy. Over the past few days, he had increasing pain in his left chest, right rib cage and right jaw. He presented to the emergency room for evaluation. He had a chest x -ray performed, which showed the cardiomegaly with bilateral vascular congestion and small left pleural effusion. His labs showed a hemoglobin of 8.2. His creatinine was 3.34. He was admitted for pain control. He was started on morphine with marginal improvement. We were asked to see the patient for recommendations for his lymphoma. PAST MEDICAL HISTORY: 1. Newly diagnosed stage IV diffuse large B-cell lymphoma, high risk. 2. Diabetes mellitus type 2. 3. Hypertension. 4. Coronary artery disease. 5. Hyperlipidemia. 6. Chronic kidney disease stage 4. PAST SURGICAL HISTORY: 1. CABG x4. 2. Eye surgery. 3. Cardiac stent placement. 4. EGD. 5. Cholecystectomy. ALLERGIES: PENICILLIN. HOME MEDICATIONS: 1. Amlodipine 5 mg daily. 2. Aspirin daily. 3. Atorvastatin 20 mg daily. 4. Coreg 25 mg daily. 5. Finasteride daily. 6. Hydrocodone p.r.n. 7. Flomax daily. FAMILY HISTORY: His father had thyroid cancer, brother with pancreatic cancer. No family history of lymphoma. SOCIAL HISTORY: has 3 children, lives with his spouse, [id number] history of smoking. No alcohol or illicit drug use. REVIEW OF SYSTEMS: Ten-point review of systems is negative except for noted in HPI. PHYSICAL EXAMINATION: VITAL SIGNS: Temperature 97.6, pulse is 75, respiratory rate 18, blood pressure is 151/72, and he is 98% on room air. GENERAL: Chronically ill-appearing male, in no acute distress. HEENT: Normocephalic and atraumatic. Pupils equal and reactive to light. NECK: Supple. CV: Regular rate and rhythm. LUNGS: Clear anterior. ABDOMEN: Soft and nontender. Bowel sounds are positive. EXTREMITIES: No clubbing, cyanosis, or edema. SKIN: No rash. HEMATOLOGIC: No petechiae or purpura. He does have scattered bruises. NEUROLOGIC: Nonfocal. PSYCHIATRIC: The patient is alert, oriented, and appropriate. PERTINENT LABORATORY DATA AND X-RAYS: Current WBCs are 6.1, hemoglobin 7.1, hematocrit 21.2, platelet count is 215,000, 64% neutrophils, 15% lymphocyte. Sodium is 134, potassium 5.1, chloride 105, CO2 is 24, BUN is 49, creatinine 3.34, lactic acid 2.4, calcium 8.8. Troponin is 0.059. Total bilirubin is 0.4, AST is 46, ALT is 17, alkaline phosphatase is 190. BNP is 1223. Radiology per HPI. ASSESSMENT: 1. Stage 4 diffuse large B-cell lymphoma with multiple high-risk features. 2. Chest pain. 3. Cardiomyopathy. 4. Chronic kidney disease stage 4. DISCUSSION: The patient has widespread osseous lesions and are likely the cause of his current pain. He does have extensive cardiac history and Cardiology has been consulted. He is getting morphine 2 mg IV plus Stephan with minimal improvement. We will add tramadol. His LDH and urica acid were extremely high at diagnosis and is allopurinol, continue. Recheck labs. I will consult Palliative Care Team. Dr. De Jesus will follow to see the patient. Thank you for the consult. Job ID: [id number] [facility]
[2018-12-12] MEDS ORDERED: Morphine ER 15 MG TAB PO SCH (21:00)
[2018-12-13] MEDS: HYDROcodone/Acetaminophen 5/325 mg Tablet PO PRN (02:16)
--- NOTE | 2018-12-13 02:40 | HP ---
CHIEF COMPLAINT: Intractable chest pain. HISTORY OF PRESENT ILLNESS: This is a 68-year-old male with past medical history of B-cell lymphoma; diabetes mellitus type 2, on insulin; coronary artery disease, status post stent; hyperlipidemia; hypertension, presenting with intractable chest pain, which is sharp in nature and has been ongoing and has been very painful and worse in the past 2 days prior to the day of admission. The patient states that the pain was in the middle of the chest and radiates to the right side of the abdomen. The patient has had such a pain in the past. On November 16, 2018, the patient went to see the oncologist because of severe abdominal pain, for which the patient was treated with some pain medication and the patient improved at this time. At this point, the patient is having decreased appetite, shortness of breath. Of note, the patient had an EGD done on 11/13/2018, which showed polyps activated peripheral B-cell type and MYC+ and BCL2+. On 11/25/2018, the patient had a PET scan, which showed widespread osseous metastatic disease involving face, spine, bilateral appendicular skeleton and visualized upper and lower extremities and pelvis with bilateral rib involvement with SUV of 20. Hypermetabolic adenopathy in the right visualization developer space, left supraclavicular, retroperitoneal, aortocaval and portocaval and liver lesions in both lobes. REVIEW OF SYSTEMS: Positive for pain, decreased appetite. Otherwise, as documented in the HPI. All other systems are reviewed and are negative. FAMILY HISTORY: Non-contributory to this case PAST MEDICAL HISTORY: Type 2 diabetes mellitus; stage IV lymphoma; hypertension ; coronary artery disease, status post stenting, CABG; hyperlipidemia; chronic kidney disease, stage 4. PAST SURGICAL HISTORY: CABG x4 vessels in 2006; right eye surgery in 2010; cardiac catheterization with stent x1 in 2010; left eye surgery for retinal detachment in 2016; EGD with biopsy and colonoscopy with polypectomy in November 13, 2018; choledocholithiasis, status post sphincterotomy with stone extraction in 2017; cholecystectomy in 11/16/2018. FAMILY HISTORY: The patient's father had thyroid cancer and brother had pancreatic cancer. SOCIAL HISTORY: The patient is . The patient has four children. The patient lives with spouse. Former smoker, the patient smoked for 30 years, one pack per day. ALLERGIES: THE PATIENT IS ALLERGIC TO PENICILLIN. CURRENT MEDICATIONS: The patient is on; 1. Amlodipine 5 mg. 2. Aspirin 325 mg. 3. Atorvastatin 20 mg. 4. Carvedilol 25 mg. 5. Finasteride 5 mg. 6. Hydrocodone 5 mg. 7. Acetaminophen 325 mg tablet. 8. Zofran. 9. Tamsulosin. PHYSICAL EXAMINATION: VITAL SIGNS: Blood pressure is 152/79, pulse of 83, respiratory rate of 18, temperature of 97.5, O2 saturation of 97. GENERAL: The patient is currently awake, alert, oriented x3, not in acute distress at this time. HEENT: Normocephalic and atraumatic. Pupils are equally round and reactive to light. Extraocular movements are intact. No scleral icterus. No conjunctival pallor. Mucous membranes are moist. NECK: Trachea is midline. Full range of motion. No JVD. LUNGS: Clear to auscultation bilaterally. No wheezing, no rales, no rhonchi are appreciated. CARDIAC: Positive S1 and S2. Regular rate and rhythm. No murmurs, no gallops , no rubs are appreciated. EXTREMITIES: The patient has 5/5 upper extremity strength and 5/5 lower extremity strength. No edema noted. NEUROLOGIC: Cranial nerves 2 through 12 grossly intact. SKIN: Warm, dry, and intact. DIAGNOSTIC DATA: A 12-lead EKG shows sinus rhythm with a rate of 80. LABORATORY DATA: WBC is 7.7, hemoglobin is 8.2, hematocrit is 24.9, and platelets 275. D-dimer is 2.97. Sodium is 135, potassium is 5.8, chloride is 103, carbon dioxide of 22, anion gap of 16, BUN is 51, creatinine is 3.74, GFR is 16, and glucose is 171. Lactic acid of 2.9. AST is 46, ALT 17, alkaline phosphatase is 190. Troponin is 0.062. BNP is 1223. ASSESSMENT AND PLAN: This is a 68-year-old male, being admitted for: 1. Intractable chest pain and abdominal pain, likely due to malignancy. At this point, the patient has a history of stage IV B-cell lymphoma. The patient is currently taking fentanyl, morphine. We will get anesthesia to further help the patient with his pain management. We will get Oncology to follow the patient. We will continue to monitor the patient closely. 2. Diabetes mellitus type 2. We will continue the patient on insulin sliding scale. We will monitor the patient closely. 3. Hyperlipidemia. Continue patient on home medication. 4. History of stage IV lymphoma. At this point, we will consult Oncology. We will follow up with their recommendations. 5. Chronic anemia, likely due to anemia of chronic inflammation. At this point , we will monitor the patient's H and H and if the patient's hemoglobin is just below 7, we are going to transfuse the patient. 6. Chronic kidney disease, stage 4. We have consulted Nephrology. We will monitor the patient's creatinine. We will continue to monitor the patient closely. 7. Lactic acidosis. We will trend the patient's lactic acid and we will continue the patient on current management. 8. Elevated troponins, likely due to chronic kidney disease stage 4. At this point, we will continue the patient on current management and we will follow up with Nephrology recommendation. 9. Deep venous thrombosis and gastrointestinal prophylaxis. Job ID: [id number] [facility]
[2018-12-13] MEDS: Morphine 2 MG/ML SYRINGE SLOW IVP PRN ×5 (02:43→22:02)
[2018-12-13] MEDS: Nitroglycerin 2% Ointment 1 INCH/1 GM Packet TOP SCH ×3 (05:05→22:00)
[2018-12-13 06:12] LABS: Band 1 % (5-11); Hemoglobin 7.2 g/dL (14.0-18.0); Hypochromia SLIGHT = 6-15 cells (100X) (0-5/hpf); Lymphocytes 10 % (21-51); MDiff Complete? YES; Mean Corpuscular HGB CONC 32.9 g/dL (32.0-36.0); Mean Corpuscular Hemoglobin 30.9 pg (27.0-31.0); Mean Corpuscular Volume 93.9 fL (78.0-98.0); Mean Platelet Volume 7.2 fL (7.4-10.4); Monocytes 1 % (0-10); Neutrophil 88 % (42-75); Platelet Count 244 thou/uL (130-400); Platelet Morphology Comment Appears Adequate; RBC Distribution Width 13.3 % (11.5-14.5); Red Blood Cell (RBC) Count 2.32 mill/uL (4.70-6.10); White Blood Cell (WBC) Count 6.4 thou/uL (4.8-10.8)
[2018-12-13] MEDS: Aspirin 325 mg Enteric Coated Tablet PO SCH (08:04)
[2018-12-13] MEDS: Allopurinol 100 MG TAB PO SCH ×2 (08:04→20:06)
[2018-12-13] MEDS: Famotidine/PF 20 mg/2ml Vial SLOW IVP SCH (08:05)
[2018-12-13] MEDS: Famotidine 20 MG TAB PO SCH (08:05)
[2018-12-13] MEDS: Heparin 5,000 UNITS/ML VIAL SC SCH ×2 (08:05→20:06)
[2018-12-13] MEDS: Carvedilol 25 MG TAB PO SCH ×2 (08:12→20:05)
--- NOTE | 2018-12-13 08:19 | PDOC.PN ---
- Subjective Encounter Start Date: 12/13/18 Encounter Start Time: 08:17 Subjective: Seen and examined still c/o pain - Objective Resuscitation Status - Order Detail: 12/12/18 00:41 Resuscitation Status Routine Resuscitation Status: FULL: Full Resuscitation Vital Signs & Weight: Vital Signs (12 hours) Temp Pulse Resp BP BP BP Pulse Ox 12/13/18 08:02 98.1 F 84 16 171/81 H 96 12/13/18 04:00 98.0 F 85 20 176/77 H 12/13/18 03:03 98.0 F 85 20 176/77 H Weight Weight 180 lb I&O: 12/12/18 12/13/18 12/14/18 06:59 06:59 06:59 Intake Total 340 Balance 340 Result Diagrams: 12/13/18 04:39 12/12/18 03:32 Additional Labs: Accuchecks 12/13/18 12/12/18 12/12/18 05:11 20:44 17:03 POC Glucose 128 H 217 H 144 H 12/12/18 08:21 POC Glucose 119 H Phys Exam - Physical Examination Constitutional: NAD HEENT: PERRLA, moist MMs, sclera anicteric, oral pharynx no lesions Neck: no nodes, no JVD, supple, full ROM Respiratory: no wheezing, no rales, no rhonchi Cardiovascular: RRR, no significant murmur, no rub Gastrointestinal: no distention, positive bowel sounds Musculoskeletal: no edema, pulses present Lymphatic: no nodes Psychiatric: normal affect, A&O x 3 Dx/Plan (1) Abdominal pain, chronic, generalized Code(s): R10.84 - GENERALIZED ABDOMINAL PAIN; G89.29 - OTHER CHRONIC PAIN Status: Acute (2) Abdominal pain, acute, generalized Code(s): R10.84 - GENERALIZED ABDOMINAL PAIN Status: Acute (3) Hx of CABG Status: Acute (4) Liver mass Code(s): R16.0 - HEPATOMEGALY, NOT ELSEWHERE CLASSIFIED Status: Acute Comment: for workup as outpt. (5) Systolic CHF, acute on chronic Code(s): I50.23 - ACUTE ON CHRONIC SYSTOLIC (CONGESTIVE) HEART FAILURE Status : Acute (6) Chronic kidney disease, stage 4 (severe) Code(s): N18.4 - CHRONIC KIDNEY DISEASE, STAGE 4 (SEVERE) Status: Chronic Comment: stable, present on admission (7) DM2 (diabetes mellitus, type 2) Status: Chronic Comment: reasonably controlled (8) HTN (hypertension) Code(s): I10 - ESSENTIAL (PRIMARY) HYPERTENSION Status: Chronic Comment: controlled - Plan plan discussed w/ family, social media content manager Pain management -: Awaiting Oncology input--Further plan pending -: Cardiology eval pending -: Defer to Hematology for anemia management * .
[2018-12-13] MEDS: Ondansetron PF 4 MG/2 ML Vial SLOW IVP PRN ×2 (18:33→22:23)
[2018-12-13] MEDS: Atorvastatin Calcium 20 MG TAB PO SCH (20:05)
[2018-12-13] MEDS: Finasteride 5 MG TAB PO SCH (20:05)
[2018-12-13] MEDS: Sodium Chloride 0.9% 1,000 ML IV SCH (22:06)
[2018-12-14 04:35] LABS: ALT (SGPT) 15 U/L (8-55); AST (SGOT) 37 U/L (5-34); Albumin 2.2 g/dL (3.4-4.8); Alkaline Phosphatase 170 U/L (40-150); Anion Gap 12 mmol/L (10-20); BUN (Urea Nitrogen) 48 mg/dL (8.4-25.7); Bilirubin, Total 0.7 mg/dL (0.2-1.2); Calc. Creatinine Clearance 23 mL/min (70-130); Calcium 8.8 mg/dL (7.8-10.44); Carbon Dioxide 22 mmol/L (23-31); Chloride 108 mmol/L (98-107); Estimated GFR-MDRD 18; Globulin 2.7 g/dL (2.4-3.5); Glucose 109 mg/dL (80-115); LDH 2567 U/L (125-220); Potassium 4.8 mmol/L (3.5-5.1); Protein, Total 4.9 g/dL (5.8-8.1); Sodium 137 mmol/L (136-145); Uric Acid 6.6 mg/dL (3.5-7.2)
[2018-12-14 04:37] LABS: Band 2 % (5-11); Eosinophils 5 % (0-10); Hemoglobin 7.4 g/dL (14.0-18.0); Lymphocytes 15 % (21-51); MDiff Complete? YES; Mean Corpuscular HGB CONC 33.1 g/dL (32.0-36.0); Mean Corpuscular Volume 93.6 fL (78.0-98.0); Mean Platelet Volume 6.7 fL (7.4-10.4); Monocytes 12 % (0-10); Neutrophil 64 % (42-75); Platelet Count 270 thou/uL (130-400); Platelet Morphology Comment Appears Adequate; RBC Distribution Width 13.3 % (11.5-14.5); Red Blood Cell (RBC) Count 2.38 mill/uL (4.70-6.10); White Blood Cell (WBC) Count 6.5 thou/uL (4.8-10.8)
[2018-12-14] MEDS: Morphine 2 MG/ML SYRINGE SLOW IVP PRN ×3 (05:21→18:16)
[2018-12-14] MEDS: Nitroglycerin 2% Ointment 1 INCH/1 GM Packet TOP SCH ×2 (05:23→14:35)
[2018-12-14] MEDS: Carvedilol 25 MG TAB PO SCH ×2 (09:41→21:03)
[2018-12-14] MEDS: Allopurinol 100 MG TAB PO SCH ×2 (09:42→21:02)
[2018-12-14] MEDS: Famotidine/PF 20 mg/2ml Vial SLOW IVP SCH (09:42)
[2018-12-14] MEDS: Famotidine 20 MG TAB PO SCH (09:42)
[2018-12-14] MEDS: Aspirin 325 mg Enteric Coated Tablet PO SCH (09:42)
[2018-12-14] MEDS: Heparin 5,000 UNITS/ML VIAL SC SCH ×2 (09:43→20:58)
[2018-12-14] MEDS: Ondansetron PF 4 MG/2 ML Vial SLOW IVP PRN (10:54)
--- NOTE | 2018-12-14 12:32 | PDOC.PN ---
- Subjective Encounter Start Date: 12/14/18 Encounter Start Time: 12:31 Feels ok. Pain meds helping. Has some occasional pain in the evening when the interval seems a bit too long. He and his family have decided to hold on starting treatment until they have had another chance to talk to the oncology team about the meds. - Objective Resuscitation Status - Order Detail: 12/12/18 00:41 Resuscitation Status Routine Resuscitation Status: FULL: Full Resuscitation Vital Signs & Weight: Vital Signs (12 hours) Temp Pulse Resp BP BP Pulse Ox 12/14/18 08:00 98.2 F 81 18 145/66 H 92 L 12/14/18 04:17 98.2 F 80 20 144/76 H 93 L 12/14/18 00:58 98.6 F 83 18 136/63 88 L Weight Admit Weight 180 lb Weight 177 lb 1 oz I&O: 12/13/18 12/14/18 12/15/18 06:59 06:59 06:59 Intake Total 340 958 Balance 340 958 Result Diagrams: 12/14/18 04:10 12/14/18 04:10 Additional Labs: Accuchecks 12/14/18 12/13/18 12/13/18 11:55 20:18 16:09 POC Glucose 164 H 147 H 134 H Phys Exam - Physical Examination Constitutional: NAD Poor color. Zuleta skin tone. Respiratory: no wheezing, no rales, no rhonchi Cardiovascular: RRR, no significant murmur Gastrointestinal: soft, non-tender, no distention Musculoskeletal: no edema Dx/Plan (1) B-cell lymphoma of extranodal site Code(s): C85.19 - UNSP B-CELL LYMPHOMA, EXTRANODAL AND SOLID ORGAN SITES Status: Acute (2) Chronic kidney disease, stage 4 (severe) Code(s): N18.4 - CHRONIC KIDNEY DISEASE, STAGE 4 (SEVERE) Status: Chronic Comment: stable, present on admission (3) HLD (hyperlipidemia) Code(s): E78.5 - HYPERLIPIDEMIA, UNSPECIFIED Status: Chronic Comment: on statin (4) HTN (hypertension) Code(s): I10 - ESSENTIAL (PRIMARY) HYPERTENSION Status: Chronic Comment: controlled (5) Bone metastases Code(s): C79.51 - SECONDARY MALIGNANT NEOPLASM OF BONE Status: Acute (6) Cancer associated pain Code(s): G89.3 - NEOPLASM RELATED PAIN (ACUTE) (CHRONIC) Status: Acute (7) Hx of CABG Status: Acute (8) DM2 (diabetes mellitus, type 2) Status: Chronic Comment: reasonably controlled (9) Anemia Code(s): D64.9 - ANEMIA, UNSPECIFIED Status: Acute - Plan * Patient has MSO4 4mg IV q 4 hours and tramadol. Will talk with nurses to try to manage the pain rather than increasing meds now. May need to increase at some point. * Blood sugars are good. * Anemia is chronic and likely related to the cancer and the renal disease. Will keep hgb above 7. * Oncology to see again today to discuss treatment.
[2018-12-14] MEDS: Sodium Chloride 0.9% 1,000 ML IV SCH (18:10)
[2018-12-14] MEDS: Atorvastatin Calcium 20 MG TAB PO SCH (21:02)
[2018-12-14] MEDS: Finasteride 5 MG TAB PO SCH (21:03)
[2018-12-15] MEDS: Bisacodyl 5 MG TAB PO PRN (00:33)
[2018-12-15] MEDS: Morphine 2 MG/ML SYRINGE SLOW IVP PRN ×2 (01:04→09:33)
[2018-12-15] MEDS ORDERED: Polyethylene Glycol 3350 17 GM Packet PO PRN (02:34)
[2018-12-15 04:54] LABS: Band 1 % (5-11); Eosinophils 1 % (0-10); Hypochromia SLIGHT = 6-15 cells (100X) (0-5/hpf); Lymphocytes 13 % (21-51); MDiff Complete? YES; Mean Corpuscular HGB CONC 32.4 g/dL (32.0-36.0); Mean Corpuscular Hemoglobin 30.3 pg (27.0-31.0); Mean Corpuscular Volume 93.5 fL (78.0-98.0); Mean Platelet Volume 6.7 fL (7.4-10.4); Monocytes 10 % (0-10); Neutrophil 75 % (42-75); Platelet Count 284 thou/uL (130-400); Platelet Morphology Comment Appears Adequate; RBC Distribution Width 13.4 % (11.5-14.5); Red Blood Cell (RBC) Count 2.32 mill/uL (4.70-6.10)
[2018-12-15] MEDS ORDERED: Rituximab 500 MG, Rituximab 250 MG in Sodium Chloride 0.9% 500 ML IVPB SCH (08:00)
[2018-12-15] MEDS ORDERED: diphenhydrAMINE 50 MG in Sodium Chloride 0.9% 100 ML IVPB SCH (08:00)
[2018-12-15] MEDS ORDERED: DOXORUBICIN IVPB SCH (08:00)
[2018-12-15] MEDS ORDERED: VINCRISTINE SULFATE IVPB SCH (08:00)
[2018-12-15] MEDS ORDERED: SODIUM CHLORIDE 0.9% IV SCH (08:00)
[2018-12-15] MEDS ORDERED: ETOPOSIDE IV SCH (08:00)
[2018-12-15] MEDS ORDERED: SODIUM CHLORIDE 0.9% IVPB SCH (08:00)
[2018-12-15] MEDS ORDERED: Dexamethasone 20 MG in Sodium Chloride 0.9% 50 ML IVPB SCH (08:00)
[2018-12-15] MEDS: Aspirin 325 mg Enteric Coated Tablet PO SCH (09:38)
[2018-12-15] MEDS: Carvedilol 25 MG TAB PO SCH ×2 (09:38→20:59)
[2018-12-15] MEDS: Allopurinol 100 MG TAB PO SCH ×2 (09:38→20:59)
[2018-12-15] MEDS: Famotidine 20 MG TAB PO SCH (09:38)
[2018-12-15] MEDS: Heparin 5,000 UNITS/ML VIAL SC SCH ×2 (09:40→21:00)
[2018-12-15] MEDS: Famotidine/PF 20 mg/2ml Vial SLOW IVP SCH (09:49)
[2018-12-15 10:16] VITALS: BMI 25.4
[2018-12-15] MEDS ORDERED: predniSONE 20 MG TAB PO SCH (12:15)
[2018-12-15] MEDS ORDERED: predniSONE 50 MG TAB PO SCH (12:15)
[2018-12-15] MEDS: Sulfameth/Trimethoprim DS 800-160mg TAB PO SCH (14:19)
[2018-12-15] MEDS: HYDROcodone/Acetaminophen 5/325 mg Tablet PO PRN (14:19)
[2018-12-15] MEDS: Sodium Chloride 0.9% 1,000 ML IV SCH (14:21)
--- NOTE | 2018-12-15 14:53 | PDOC.PN ---
- Subjective Encounter Start Date: 12/15/18 Encounter Start Time: 10:30 Feeling about the same. Nurse reports he does occasionally have some breakthrough pain. He is amenable to starting chemotherapy. Plan is to start that today. No BM since admission. - Objective Resuscitation Status - Order Detail: 12/12/18 00:41 Resuscitation Status Routine Resuscitation Status: FULL: Full Resuscitation Vital Signs & Weight: Vital Signs (12 hours) Temp Pulse Pulse Resp BP BP BP 12/15/18 14:17 97.6 F 90 18 133/67 12/15/18 12:40 97.5 F L 78 20 133/67 12/15/18 08:00 99.1 F 79 16 156/69 H 12/15/18 04:00 99.5 F 79 18 145/73 H Pulse Ox 12/15/18 14:17 12/15/18 12:40 91 L 12/15/18 08:00 93 L 12/15/18 04:00 97 Weight Admit Weight 180 lb Weight 177 lb 1 oz I&O: 12/14/18 12/15/18 12/16/18 06:59 06:59 06:59 Intake Total 958 1460 600 Balance 958 1460 600 Result Diagrams: 12/15/18 Unknown 12/14/18 04:10 Additional Labs: Accuchecks 12/15/18 12/15/18 12/14/18 11:18 05:45 20:23 POC Glucose 154 H 118 H 151 H 12/14/18 16:21 POC Glucose 136 H Phys Exam - Physical Examination Constitutional: NAD Very pale. Respiratory: no wheezing, no rales, no rhonchi, clear to auscultation bilateral Cardiovascular: RRR, no significant murmur Gastrointestinal: soft, non-tender, no distention, positive bowel sounds Musculoskeletal: no edema Psychiatric: normal affect Deviation from normal: Somewhat sedated with pain meds. Dx/Plan (1) B-cell lymphoma of extranodal site Code(s): C85.19 - UNSP B-CELL LYMPHOMA, EXTRANODAL AND SOLID ORGAN SITES Status: Acute (2) Chronic kidney disease, stage 4 (severe) Code(s): N18.4 - CHRONIC KIDNEY DISEASE, STAGE 4 (SEVERE) Status: Chronic Comment: stable, present on admission (3) HLD (hyperlipidemia) Code(s): E78.5 - HYPERLIPIDEMIA, UNSPECIFIED Status: Chronic Comment: on statin (4) HTN (hypertension) Code(s): I10 - ESSENTIAL (PRIMARY) HYPERTENSION Status: Chronic Comment: controlled (5) Bone metastases Code(s): C79.51 - SECONDARY MALIGNANT NEOPLASM OF BONE Status: Acute (6) Cancer associated pain Code(s): G89.3 - NEOPLASM RELATED PAIN (ACUTE) (CHRONIC) Status: Acute (7) Hx of CABG Status: Acute (8) DM2 (diabetes mellitus, type 2) Status: Chronic Comment: reasonably controlled (9) Anemia Code(s): D64.9 - ANEMIA, UNSPECIFIED Status: Acute (10) Constipation due to pain medication Code(s): K59.03 - DRUG INDUCED CONSTIPATION Status: Acute - Plan * Transfuse one unit PRBC's * Aggressive bowel regimen. * Discussed pain regimen with nurse. She will call for any breakthrough pain. * Chemo will be a five day regimen. * High risk of tumor lysis syndrome. * Will apparently be a very difficult course of treatment.
[2018-12-15] MEDS: Finasteride 5 MG TAB PO SCH (20:59)
[2018-12-15] MEDS: Senokot S 8.6-50 MG TAB PO SCH (20:59)
[2018-12-15] MEDS: Atorvastatin Calcium 20 MG TAB PO SCH (21:00)
[2018-12-16] MEDS: Morphine 2 MG/ML SYRINGE SLOW IVP PRN ×2 (00:56→10:05)
[2018-12-16] MEDS: Bisacodyl 5 MG TAB PO PRN (04:25)
[2018-12-16] MEDS: HYDROcodone/Acetaminophen 5/325 mg Tablet PO PRN (04:26)
[2018-12-16] MEDS ORDERED: Rituximab 500 MG, Rituximab 250 MG in Sodium Chloride 0.9% 500 ML IVPB SCH (06:45)
[2018-12-16] MEDS ORDERED: SODIUM CHLORIDE 0.9% IV SCH (07:00)
[2018-12-16] MEDS ORDERED: ETOPOSIDE IV SCH (07:00)
[2018-12-16] MEDS ORDERED: diphenhydrAMINE 50 MG in Sodium Chloride 0.9% 100 ML IVPB SCH (07:00)
[2018-12-16] MEDS ORDERED: Dexamethasone 20 MG in Sodium Chloride 0.9% 50 ML IVPB SCH (07:00)
[2018-12-16 07:22] LABS: #Eosinphils 0.5 thou/uL (0.0-0.7); #Lymphocytes 0.9 thou/uL (1.20-3.40); #Monocytes 0.8 thou/uL (0.11-0.59); #Neutrophils 3.5 thou/uL (1.40-6.50); %Basophils 0.5 % (0.0-1.0); %Eosinophils 8.4 % (0.0-10.0); %Lymphocytes 15.3 % (21.0-51.0); %Monocytes 14.4 % (0.0-10.0); %Neutrophils 61.4 % (42.0-75.0); Mean Corpuscular HGB CONC 32.5 g/dL (32.0-36.0); Mean Corpuscular Hemoglobin 30.2 pg (27.0-31.0); Mean Corpuscular Volume 92.8 fL (78.0-98.0); Mean Platelet Volume 6.9 fL (7.4-10.4); Platelet Count 281 thou/uL (130-400); RBC Distribution Width 13.4 % (11.5-14.5); Red Blood Cell (RBC) Count 2.65 mill/uL (4.70-6.10); White Blood Cell (WBC) Count 5.7 thou/uL (4.8-10.8)
[2018-12-16 07:36] LABS: ALT (SGPT) 14 U/L (8-55); AST (SGOT) 36 U/L (5-34); Albumin 2.1 g/dL (3.4-4.8); Alkaline Phosphatase 160 U/L (40-150); Anion Gap 13 mmol/L (10-20); BUN (Urea Nitrogen) 50 mg/dL (8.4-25.7); Bilirubin, Total 0.7 mg/dL (0.2-1.2); Calc. Creatinine Clearance 23 mL/min (70-130); Calcium 8.5 mg/dL (7.8-10.44); Carbon Dioxide 19 mmol/L (23-31); Chloride 107 mmol/L (98-107); Estimated GFR-MDRD 18; Globulin 2.6 g/dL (2.4-3.5); Glucose 96 mg/dL (80-115); Potassium 4.6 mmol/L (3.5-5.1); Protein, Total 4.7 g/dL (5.8-8.1); Sodium 134 mmol/L (136-145)
[2018-12-16] MEDS ORDERED: VINCRISTINE SULFATE IVPB SCH (08:00)
[2018-12-16] MEDS ORDERED: SODIUM CHLORIDE 0.9% IVPB SCH (08:00)
[2018-12-16] MEDS ORDERED: DOXORUBICIN IVPB SCH (08:00)
[2018-12-16] MEDS: Senokot S 8.6-50 MG TAB PO SCH (08:37)
[2018-12-16] MEDS: Allopurinol 100 MG TAB PO SCH ×2 (08:37→22:40)
[2018-12-16] MEDS: Carvedilol 25 MG TAB PO SCH ×2 (08:37→22:40)
[2018-12-16] MEDS: Famotidine 20 MG TAB PO SCH (08:38)
[2018-12-16] MEDS: Heparin 5,000 UNITS/ML VIAL SC SCH ×2 (08:38→22:50)
[2018-12-16] MEDS: Aspirin 325 mg Enteric Coated Tablet PO SCH (08:38)
[2018-12-16] MEDS: Famotidine/PF 20 mg/2ml Vial SLOW IVP SCH (08:39)
[2018-12-16] MEDS: Acetaminophen 325 MG TAB PO PRN (10:03)
[2018-12-16] MEDS: Ondansetron PF 4 MG/2 ML Vial SLOW IVP PRN (10:05)
[2018-12-16] MEDS ORDERED: Pegfilgrastim Onpro 6 MG/0.6 ML SQ SCH (12:15)
--- NOTE | 2018-12-16 15:23 | PDOC.PN ---
- Subjective Encounter Start Date: 12/16/18 Encounter Start Time: 09:20 Had a minor fall this morning. No injury. Was trying to have BM. Feels ok. Denies pain. Says it is controlled. No BM yet. - Objective Resuscitation Status - Order Detail: 12/12/18 00:41 Resuscitation Status Routine Resuscitation Status: FULL: Full Resuscitation Vital Signs & Weight: Vital Signs (12 hours) Temp Pulse Resp BP BP Pulse Ox 12/16/18 15:15 98.5 F 81 18 122/59 L 95 12/16/18 14:45 98.5 F 84 18 159/70 H 96 12/16/18 14:14 99.3 F 88 16 168/70 H 91 L 12/16/18 13:06 97.8 F 77 16 176/82 H 93 L 12/16/18 12:31 98.0 F 76 16 170/79 H 94 L 12/16/18 11:57 98.0 F 74 14 170/76 H 94 L 12/16/18 11:27 98.0 F 73 18 168/79 H 94 L 12/16/18 11:00 98.3 F 73 16 166/73 H 93 L 12/16/18 09:25 97.4 F L 77 18 118/57 L 94 L 12/16/18 07:35 92 L 12/16/18 07:34 98.6 F 77 20 143/67 H 92 L 12/16/18 04:00 98.1 F 77 18 153/72 H 97 Weight Admit Weight 180 lb Weight 177 lb 1 oz I&O: 12/15/18 12/16/18 12/17/18 06:59 06:59 06:59 Intake Total 1460 2100 Balance 1460 2100 Result Diagrams: 12/16/18 07:00 12/16/18 07:00 Additional Labs: Accuchecks 12/16/18 12/16/18 12/15/18 10:42 05:26 20:25 POC Glucose 144 H 111 H 127 H 12/15/18 17:14 POC Glucose 133 H Phys Exam - Physical Examination Constitutional: NAD Respiratory: no wheezing, no rales, no rhonchi, clear to auscultation bilateral Cardiovascular: RRR, no significant murmur, no rub Gastrointestinal: soft, non-tender, no distention, positive bowel sounds 2+ pitting edema of the LE's. Psychiatric: normal affect, A&O x 3 Dx/Plan (1) B-cell lymphoma of extranodal site Code(s): C85.19 - UNSP B-CELL LYMPHOMA, EXTRANODAL AND SOLID ORGAN SITES Status: Acute (2) Chronic kidney disease, stage 4 (severe) Code(s): N18.4 - CHRONIC KIDNEY DISEASE, STAGE 4 (SEVERE) Status: Chronic Comment: stable, present on admission (3) HLD (hyperlipidemia) Code(s): E78.5 - HYPERLIPIDEMIA, UNSPECIFIED Status: Chronic Comment: on statin (4) HTN (hypertension) Code(s): I10 - ESSENTIAL (PRIMARY) HYPERTENSION Status: Chronic Comment: controlled (5) Bone metastases Code(s): C79.51 - SECONDARY MALIGNANT NEOPLASM OF BONE Status: Acute (6) Cancer associated pain Code(s): G89.3 - NEOPLASM RELATED PAIN (ACUTE) (CHRONIC) Status: Acute (7) Hx of CABG Status: Acute (8) DM2 (diabetes mellitus, type 2) Status: Chronic Comment: reasonably controlled (9) Anemia Code(s): D64.9 - ANEMIA, UNSPECIFIED Status: Acute (10) Constipation due to pain medication Code(s): K59.03 - DRUG INDUCED CONSTIPATION Status: Acute - Plan * Tolerating chemo so far. * Labs have not changed a lot. * Holding off on diuresis now. May need to consider some soon. * Continue stool softeners, cathartics. * Renal function stable so far. * High risk for tumor lysis as discussed with onc yest. * Continue pain management wit IV morphine and oral norco/tramadol
[2018-12-16] MEDS ORDERED: Ondansetron PF 4 MG/2 ML Vial SLOW IVP SCH (17:45)
[2018-12-16] MEDS: Sodium Chloride 0.9% 1,000 ML IV SCH (19:23)
[2018-12-16] MEDS: Finasteride 5 MG TAB PO SCH (22:40)
[2018-12-16] MEDS: Atorvastatin Calcium 20 MG TAB PO SCH (22:40)
[2018-12-17] MEDS: Senokot S 8.6-50 MG TAB PO SCH ×3 (02:47→21:51)
[2018-12-17] MEDS: Sodium Chloride 0.9% 1,000 ML IV SCH (06:14)
[2018-12-17] MEDS ORDERED: VINCRISTINE SULFATE IVPB SCH (08:00)
[2018-12-17] MEDS ORDERED: DOXORUBICIN IVPB SCH (08:00)
[2018-12-17] MEDS ORDERED: SODIUM CHLORIDE 0.9% IVPB SCH (08:00)
[2018-12-17] MEDS ORDERED: SODIUM CHLORIDE 0.9% IV SCH (08:00)
[2018-12-17] MEDS ORDERED: ETOPOSIDE IV SCH (08:00)
[2018-12-17] MEDS ORDERED: Furosemide 20 MG TAB PO SCH (08:45)
[2018-12-17] MEDS: Tamsulosin HCl 0.4 MG CAP PO SCH (09:21)
[2018-12-17] MEDS: Sulfameth/Trimethoprim DS 800-160mg TAB PO SCH (09:21)
[2018-12-17] MEDS: Aspirin 325 mg Enteric Coated Tablet PO SCH (09:21)
[2018-12-17] MEDS: Allopurinol 100 MG TAB PO SCH ×2 (09:21→21:50)
[2018-12-17] MEDS: Carvedilol 25 MG TAB PO SCH ×2 (09:21→21:51)
[2018-12-17] MEDS: Famotidine 20 MG TAB PO SCH (09:21)
[2018-12-17] MEDS: Heparin 5,000 UNITS/ML VIAL SC SCH ×2 (09:22→21:49)
[2018-12-17] MEDS: Famotidine/PF 20 mg/2ml Vial SLOW IVP SCH (09:40)
[2018-12-17] MEDS ORDERED: Magnesium Citrate 300 ML BOT PO SCH (10:15)
--- NOTE | 2018-12-17 12:29 | PDOC.PN ---
- Subjective Encounter Start Date: 12/17/18 Encounter Start Time: 09:15 Feeling better today. Pain has improved greatly. No signif pain for 16 hours. Only mild with deep breath. Has a small red area on left lower flank area. - Objective Resuscitation Status - Order Detail: 12/12/18 00:41 Resuscitation Status Routine Resuscitation Status: FULL: Full Resuscitation Vital Signs & Weight: Vital Signs (12 hours) Temp Pulse Resp BP BP Pulse Ox 12/17/18 08:16 97.7 F 77 18 162/74 H 97 12/17/18 08:00 97 12/17/18 04:00 98.2 F 79 16 140/68 Weight Admit Weight 180 lb Weight 177 lb 1 oz I&O: 12/16/18 12/17/18 12/18/18 06:59 06:59 06:59 Intake Total 2099 2106 Balance 2099 2106 Result Diagrams: 12/16/18 07:00 12/16/18 07:00 Additional Labs: Accuchecks 12/17/18 12/16/18 11:18 15:50 POC Glucose 525 H 107 Phys Exam - Physical Examination Constitutional: NAD More awake and alert. Respiratory: no wheezing, no rales, no rhonchi, clear to auscultation bilateral Cardiovascular: RRR, no significant murmur, no rub Gastrointestinal: soft, non-tender, no distention, positive bowel sounds Ecchymosis just above belt line on left side. NTTP. no hematoma. 2+ pitting edema up to lower abdomen Neurological: non-focal Dx/Plan (1) B-cell lymphoma of extranodal site Code(s): C85.19 - UNSP B-CELL LYMPHOMA, EXTRANODAL AND SOLID ORGAN SITES Status: Acute (2) Chronic kidney disease, stage 4 (severe) Code(s): N18.4 - CHRONIC KIDNEY DISEASE, STAGE 4 (SEVERE) Status: Chronic Comment: stable, present on admission (3) HLD (hyperlipidemia) Code(s): E78.5 - HYPERLIPIDEMIA, UNSPECIFIED Status: Chronic Comment: on statin (4) HTN (hypertension) Code(s): I10 - ESSENTIAL (PRIMARY) HYPERTENSION Status: Chronic Comment: controlled (5) Bone metastases Code(s): C79.51 - SECONDARY MALIGNANT NEOPLASM OF BONE Status: Acute (6) Cancer associated pain Code(s): G89.3 - NEOPLASM RELATED PAIN (ACUTE) (CHRONIC) Status: Acute (7) Hx of CABG Status: Acute (8) DM2 (diabetes mellitus, type 2) Status: Chronic Comment: reasonably controlled (9) Anemia Code(s): D64.9 - ANEMIA, UNSPECIFIED Status: Acute (10) Constipation due to pain medication Code(s): K59.03 - DRUG INDUCED CONSTIPATION Status: Acute - Plan * Severe hyperglycemia with steroids related to chemo. * Increase SSI to aggressive scale. * Ambulate as tolerated. * Lasix 20 po x 1. * Continue to monitor labs. High risk for tumor lysis.
[2018-12-17] MEDS: HumaLOG 300 UNITS/3 ML VIAL SC PRN ×2 (16:42→21:48)
[2018-12-17] MEDS: Atorvastatin Calcium 20 MG TAB PO SCH (21:50)
[2018-12-17] MEDS: Amlodipine 5 MG TAB PO PRN (21:51)
[2018-12-17] MEDS: Finasteride 5 MG TAB PO SCH (21:52)
[2018-12-17] MEDS: DOXORUBICIN IVPB SCH (21:56)
[2018-12-17] MEDS: VINCRISTINE SULFATE IVPB SCH (21:56)
[2018-12-17] MEDS: SODIUM CHLORIDE 0.9% IVPB SCH (21:56)
[2018-12-18] MEDS: Sodium Chloride 0.9% 1,000 ML IV SCH (03:09)
[2018-12-18] MEDS: Morphine 4 MG/ML VIAL SLOW IVP PRN ×4 (05:52→22:04)
[2018-12-18 06:08] LABS: #Lymphocytes 0.6 thou/uL (1.20-3.40); #Monocytes 0.7 thou/uL (0.11-0.59); #Neutrophils 6.9 thou/uL (1.40-6.50); %Basophils 0.2 % (0.0-1.0); %Eosinophils 0.1 % (0.0-10.0); %Lymphocytes 7.7 % (21.0-51.0); %Monocytes 8.1 % (0.0-10.0); %Neutrophils 83.9 % (42.0-75.0); Hemoglobin 8.7 g/dL (14.0-18.0); Mean Corpuscular HGB CONC 32.7 g/dL (32.0-36.0); Mean Corpuscular Volume 91.8 fL (78.0-98.0); Mean Platelet Volume 6.9 fL (7.4-10.4); Platelet Count 334 thou/uL (130-400); RBC Distribution Width 13.3 % (11.5-14.5); White Blood Cell (WBC) Count 8.2 thou/uL (4.8-10.8)
[2018-12-18 06:34] LABS: Anion Gap 14 mmol/L (10-20); BUN (Urea Nitrogen) 74 mg/dL (8.4-25.7); Calc. Creatinine Clearance 24 mL/min (70-130); Calcium 8.4 mg/dL (7.8-10.44); Carbon Dioxide 17 mmol/L (23-31); Chloride 106 mmol/L (98-107); Estimated GFR-MDRD 19; Glucose 177 mg/dL (80-115); Sodium 132 mmol/L (136-145)
[2018-12-18 06:36] LABS: Uric Acid 6.3 mg/dL (3.5-7.2)
[2018-12-18] MEDS ORDERED: DOXORUBICIN IVPB SCH (08:00)
[2018-12-18] MEDS ORDERED: VINCRISTINE SULFATE IVPB SCH (08:00)
[2018-12-18] MEDS ORDERED: SODIUM CHLORIDE 0.9% IVPB SCH (08:00)
[2018-12-18] MEDS ORDERED: ETOPOSIDE IV SCH (08:00)
[2018-12-18] MEDS ORDERED: SODIUM CHLORIDE 0.9% IV SCH (08:00)
[2018-12-18] MEDS: HumaLOG 300 UNITS/3 ML VIAL SC PRN ×3 (09:06→18:46)
[2018-12-18] MEDS: Allopurinol 100 MG TAB PO SCH ×2 (09:06→21:24)
[2018-12-18] MEDS: Tamsulosin HCl 0.4 MG CAP PO SCH (09:07)
[2018-12-18] MEDS: Aspirin 325 mg Enteric Coated Tablet PO SCH (09:07)
[2018-12-18] MEDS: Heparin 5,000 UNITS/ML VIAL SC SCH ×2 (09:07→21:22)
[2018-12-18] MEDS: Carvedilol 25 MG TAB PO SCH ×2 (09:07→21:24)
[2018-12-18] MEDS: Senokot S 8.6-50 MG TAB PO SCH ×2 (09:07→21:24)
[2018-12-18] MEDS: Famotidine 20 MG TAB PO SCH (09:07)
[2018-12-18] MEDS: Famotidine/PF 20 mg/2ml Vial SLOW IVP SCH (09:09)
[2018-12-18] MEDS: HYDROcodone/Acetaminophen 5/325 mg Tablet PO PRN (10:33)
--- NOTE | 2018-12-18 13:26 | EKG ---
Test Reason : Blood Pressure : / mmHG Vent. Rate : 080 BPM Atrial Rate : 080 BPM P-R Int : 146 ms QRS Dur : 094 ms QT Int : 400 ms P-R-T Axes : 039 007 055 degrees QTc Int : 461 ms Normal sinus rhythm Nonspecific ST and T wave abnormality Prolonged QT Abnormal ECG Confirmed by MARA OSBORNE ([id number]), proposal editor MATTHEW SESAY ([id number]) on 12/18/2018 1:26:43 PM Referred By: Confirmed By:MARA OSBORNE
[2018-12-18] MEDS ORDERED: HYDROcodone/Acetaminophen 7.5/325 mg Tablet PO PRN (18:26)
--- NOTE | 2018-12-18 18:35 | PDOC.PN ---
- Subjective Encounter Start Date: 12/18/18 Encounter Start Time: 08:45 Says he continues to do well. His pain is still present at times, but now goes away at times and is no longer constant. Had two BM's yesterday. - Objective Resuscitation Status - Order Detail: 12/12/18 00:41 Resuscitation Status Routine Resuscitation Status: FULL: Full Resuscitation Vital Signs & Weight: Vital Signs (12 hours) Temp Pulse Resp BP BP BP Pulse Ox 12/18/18 16:45 97.5 F L 75 18 154/74 H 12/18/18 12:00 97.5 F L 75 20 155/75 H 98 12/18/18 08:15 97 12/18/18 08:00 97.5 F L 79 22 H 121/71 97 Weight Admit Weight 180 lb Weight 177 lb 1 oz I&O: 12/17/18 12/18/18 12/19/18 06:59 06:59 06:59 Intake Total 2107 Balance 2107 Result Diagrams: 12/18/18 05:55 12/18/18 05:55 Additional Labs: Accuchecks 12/18/18 12/18/18 12/18/18 16:59 11:27 09:04 POC Glucose 162 H 185 H 168 H 12/17/18 20:45 POC Glucose 385 H Phys Exam - Physical Examination Constitutional: NAD Respiratory: no wheezing, no rales, no rhonchi, clear to auscultation bilateral Cardiovascular: RRR, no significant murmur Gastrointestinal: soft, non-tender, no distention, positive bowel sounds Persistent 1-2+ edema Small ecchymosis on left flank unchanged Dx/Plan (1) B-cell lymphoma of extranodal site Code(s): C85.19 - UNSP B-CELL LYMPHOMA, EXTRANODAL AND SOLID ORGAN SITES Status: Acute (2) Chronic kidney disease, stage 4 (severe) Code(s): N18.4 - CHRONIC KIDNEY DISEASE, STAGE 4 (SEVERE) Status: Chronic Comment: stable, present on admission (3) HLD (hyperlipidemia) Code(s): E78.5 - HYPERLIPIDEMIA, UNSPECIFIED Status: Chronic Comment: on statin (4) HTN (hypertension) Code(s): I10 - ESSENTIAL (PRIMARY) HYPERTENSION Status: Chronic Comment: controlled (5) Bone metastases Code(s): C79.51 - SECONDARY MALIGNANT NEOPLASM OF BONE Status: Acute (6) Cancer associated pain Code(s): G89.3 - NEOPLASM RELATED PAIN (ACUTE) (CHRONIC) Status: Acute (7) Hx of CABG Status: Acute (8) DM2 (diabetes mellitus, type 2) Status: Chronic Comment: reasonably controlled (9) Anemia Code(s): D64.9 - ANEMIA, UNSPECIFIED Status: Acute (10) Constipation due to pain medication Code(s): K59.03 - DRUG INDUCED CONSTIPATION Status: Acute - Plan * Continue chemo per Onc * Continue pain management. * Continue bowel regimen * Likely give another dose of lasix in am to avoid volume overload.
[2018-12-18] MEDS: HYDROcodone/Acetaminophen 7.5/325 mg Tablet PO PRN (18:44)
[2018-12-18] MEDS: Atorvastatin Calcium 20 MG TAB PO SCH (21:24)
[2018-12-18] MEDS: Finasteride 5 MG TAB PO SCH (21:24)
[2018-12-19] MEDS: HYDROcodone/Acetaminophen 7.5/325 mg Tablet PO PRN (01:09)
[2018-12-19] MEDS: Ondansetron PF 4 MG/2 ML Vial SLOW IVP PRN (04:15)
[2018-12-19 06:06] LABS: Anion Gap 13 mmol/L (10-20); BUN (Urea Nitrogen) 79 mg/dL (8.4-25.7); Calc. Creatinine Clearance 24 mL/min (70-130); Calcium 8.3 mg/dL (7.8-10.44); Carbon Dioxide 19 mmol/L (23-31); Chloride 106 mmol/L (98-107); Estimated GFR-MDRD 19; Glucose 303 mg/dL (80-115); LDH 2742 U/L (125-220); Potassium 6.2 mmol/L (3.5-5.1); Sodium 132 mmol/L (136-145); Uric Acid 6.5 mg/dL (3.5-7.2)
[2018-12-19] MEDS: HumaLOG 300 UNITS/3 ML VIAL SC PRN ×3 (06:11→16:11)
[2018-12-19] MEDS ORDERED: Calcium Gluconate 4.6 MEQ in Sodium Chloride 0.9% 100 ML IVPB SCH (06:51)
--- NOTE | 2018-12-19 06:57 | PDOC.EVN ---
Event Note - Event Note Event Note: critical labs reported by rn, pt has hyperkalemia, and hyperphosphatemia, concern for TLS, will place in tele and correct electrolytes, pt already on cke so hard to say how much damage he might have got from it, will consult nephro for input on this matter. Pt is in fluid overload unable to give aggressive hydration.
[2018-12-19] MEDS ORDERED: Sodium Bicarb 50 MEQ/50 ML Abboject 8.4% SYRINGE IVP SCH (07:00)
[2018-12-19] MEDS: Calcium Acetate 667 MG CAP PO SCH ×3 (07:21→15:59)
[2018-12-19] MEDS ORDERED: ETOPOSIDE IV SCH (08:00)
[2018-12-19] MEDS ORDERED: SODIUM CHLORIDE 0.9% IV SCH (08:00)
[2018-12-19] MEDS: Sodium Chloride 0.9% 1,000 ML IV SCH ×2 (08:51→21:03)
[2018-12-19] MEDS: Allopurinol 100 MG TAB PO SCH ×2 (08:53→21:00)
[2018-12-19] MEDS: Heparin 5,000 UNITS/ML VIAL SC SCH ×2 (08:54→21:01)
[2018-12-19] MEDS: Famotidine 20 MG TAB PO SCH (08:54)
[2018-12-19] MEDS: Aspirin 325 mg Enteric Coated Tablet PO SCH (08:54)
[2018-12-19] MEDS: Famotidine/PF 20 mg/2ml Vial SLOW IVP SCH (08:54)
[2018-12-19] MEDS: Carvedilol 25 MG TAB PO SCH ×2 (08:54→21:00)
[2018-12-19] MEDS: predniSONE 20 MG TAB PO SCH (08:55)
[2018-12-19] MEDS: predniSONE 50 MG TAB PO SCH (08:55)
[2018-12-19] MEDS: Senokot S 8.6-50 MG TAB PO SCH ×2 (08:56→21:01)
[2018-12-19] MEDS: Tamsulosin HCl 0.4 MG CAP PO SCH (08:56)
--- NOTE | 2018-12-19 10:28 | CON ---
DATE OF CONSULTATION: TYPE OF CONSULTATION: Nephrology Consultation. REASON FOR CONSULTATION: Hyperkalemia. HISTORY OF PRESENT ILLNESS: This is a very pleasant 68-year-old gentleman, who was admitted on December 12, for lymphoma and chemotherapy. His creatinine was 3.7 on admission and is 3.2, but his potassium has risen. The patient has been started on chemotherapy and the question of tumor lysis syndrome was initiated. The patient denies any nausea, vomiting, or chest pain. No headache, numbness, tingling, or weakness. PAST MEDICAL HISTORY: Includes lymphoma, diabetes mellitus, hypertension, coronary artery disease, and CKD stage 4. PAST SURGICAL HISTORY: CABG, eye surgery, cardiac stent, EGD, and cholecystectomy. ALLERGIES: REVIEWED. MEDICATIONS: Home medication list reviewed. Hospital medication list reviewed. REVIEW OF SYSTEMS: A 15-point review of system was performed and was negative except for positives noted above. GENERAL: HEAD: NECK: No swelling or lumps. NOSE: No epistaxis or discharge. EYES: No diplopia or pain. RESPIRATORY: CARDIOVASCULAR: GASTROINTESTINAL: /GRAVEL HAULER: MUSCULOSKELETAL: No joint pain. NEUROPSYCHIATIC SYSTEMS: No suicidal ideation. No ideation. SKIN: Denies any rash or ulcer. CONSTITUTIONAL: No fever or chills. PHYSICAL EXAMINATION: CONSTITUTIONAL: The patient is awake and alert. VITAL SIGNS: Afebrile, pulse 75, breathing 16, and blood pressure 135/61. GENERAL APPEARANCE AND MENTAL STATUS: Fair. HEAD/NECK: Normocephalic. Atraumatic. EYES: EOMI. No deformity. EARS: Clear. No ulcers. NOSE: Intact. No lesions. MOUTH: Clear. No discharge. THROAT: Clear. No exudate. LUNGS: Clear. No crackles. CARDIAC: S1, S2. No rub. ABDOMEN: Benign. Bowel sounds positive. GENITALIA/RECTUM: Connor absent. BACK/EXTREMITIES: Edema 0+. NEUROLOGICAL: Alert and motor intact. SKIN: LYMPHATICS: LABORATORY DATA: Labs showed potassium 6.2. Hemoglobin 8.7. ASSESSMENT AND PLAN: Acute kidney injury with chronic kidney disease and hyperkalemia and possible tumor lysis syndrome, recommended dialysis. Hypertension, stable. Anemia, stable. Medication based on GFR appropriate. The patient was offered dialysis for hyperkalemia, the patient has declined at this time. Job ID: [id number]
[2018-12-19 11:03] LABS: Potassium 5.8 mmol/L (3.5-5.1)
[2018-12-19 11:41] LABS: #Basophils 0.1 thou/uL (0.0-0.2); #Lymphocytes 0.2 thou/uL (1.20-3.40); #Neutrophils 5.2 thou/uL (1.40-6.50); %Eosinophils 0.3 % (0.0-10.0); %Lymphocytes 3.7 % (21.0-51.0); %Monocytes 0.8 % (0.0-10.0); %Neutrophils 94.3 % (42.0-75.0); Hemoglobin 8.9 g/dL (14.0-18.0); Mean Corpuscular Hemoglobin 30.8 pg (27.0-31.0); Mean Corpuscular Volume 96.2 fL (78.0-98.0); Mean Platelet Volume 7.1 fL (7.4-10.4); Platelet Count 324 thou/uL (130-400); RBC Distribution Width 13.3 % (11.5-14.5); White Blood Cell (WBC) Count 5.5 thou/uL (4.8-10.8)
[2018-12-19] MEDS: Morphine 4 MG/ML VIAL SLOW IVP PRN (12:36)
--- NOTE | 2018-12-19 13:16 | PDOC.PN ---
- Subjective Encounter Start Date: 12/19/18 Encounter Start Time: 13:15 Says he is doing well. He is not having any pain related to the cancer. He has had a little pain related to the catheter placement. Has decided to get the dialysis. - Objective Resuscitation Status - Order Detail: 12/12/18 00:41 Resuscitation Status Routine Resuscitation Status: FULL: Full Resuscitation Vital Signs & Weight: Vital Signs (12 hours) Temp Pulse Resp BP BP Pulse Ox 12/19/18 08:00 97.8 F 78 20 134/59 L 98 12/19/18 04:00 97.7 F 71 12 175/77 H 98 Weight Admit Weight 180 lb Weight 177 lb 1 oz I&O: 12/18/18 12/19/18 12/20/18 06:59 06:59 06:59 Intake Total 748 1087.8 Balance 748 1087.8 Result Diagrams: 12/19/18 04:46 12/19/18 10:37 Additional Labs: Accuchecks 12/19/18 12/19/18 12/18/18 11:13 05:48 20:21 POC Glucose 395 H 337 H 199 H 12/18/18 16:59 POC Glucose 162 H Phys Exam - Physical Examination Constitutional: NAD Respiratory: no wheezing, no rales, no rhonchi Cardiovascular: RRR, no significant murmur, no rub Gastrointestinal: soft, non-tender, no distention, positive bowel sounds 1-2+ pitting edema of the LE's. Neurological: non-focal Psychiatric: normal affect, A&O x 3 Dx/Plan (1) B-cell lymphoma of extranodal site Code(s): C85.19 - UNSP B-CELL LYMPHOMA, EXTRANODAL AND SOLID ORGAN SITES Status: Acute (2) Chronic kidney disease, stage 4 (severe) Code(s): N18.4 - CHRONIC KIDNEY DISEASE, STAGE 4 (SEVERE) Status: Chronic Comment: stable, present on admission (3) HLD (hyperlipidemia) Code(s): E78.5 - HYPERLIPIDEMIA, UNSPECIFIED Status: Chronic Comment: on statin (4) HTN (hypertension) Code(s): I10 - ESSENTIAL (PRIMARY) HYPERTENSION Status: Chronic Comment: controlled (5) Bone metastases Code(s): C79.51 - SECONDARY MALIGNANT NEOPLASM OF BONE Status: Acute (6) Cancer associated pain Code(s): G89.3 - NEOPLASM RELATED PAIN (ACUTE) (CHRONIC) Status: Acute (7) Hx of CABG Status: Acute (8) DM2 (diabetes mellitus, type 2) Status: Chronic Comment: reasonably controlled (9) Anemia Code(s): D64.9 - ANEMIA, UNSPECIFIED Status: Acute (10) Constipation due to pain medication Code(s): K59.03 - DRUG INDUCED CONSTIPATION Status: Acute - Plan * Hyperkalemia noted this morning on labs. Nephrology consulted. Kayexalate given. Slightly improved now. * Nephrology recommended HD. Surgery placed dialysis catheter. * Amenable to HD now. * Continuing chemotherapy per Oncology. * Blood sugars getting higher. Will watch for need more long acting insulin.
[2018-12-19] MEDS ORDERED: Sodium Chloride 0.9% 1,000 ML IV SCH (14:15)
[2018-12-19 15:07] LABS: Anion Gap 16 mmol/L (10-20); BUN (Urea Nitrogen) 78 mg/dL (8.4-25.7); Calc. Creatinine Clearance 25 mL/min (70-130); Calcium 8.3 mg/dL (7.8-10.44); Carbon Dioxide 16 mmol/L (23-31); Chloride 107 mmol/L (98-107); Estimated GFR-MDRD 20; Glucose 285 mg/dL (80-115); LDH 2806 U/L (125-220); Phosphorus 5.1 mg/dL (2.3-4.7); Potassium 5.1 mmol/L (3.5-5.1); Sodium 134 mmol/L (136-145); Uric Acid 6.3 mg/dL (3.5-7.2)
[2018-12-19 15:20] LABS: HBSAB Concentration 2.31 mIU/mL; Hep B Core Total Ab Non-Reactive (NonReactive); Hep B Core Total Index 0.06 S/CO (0-0.79); Hep B Surf AB Non-Reactive (NonReactive); Hep B Surf Ag Non-Reactive S/CO (NonReactive); Hep C IgG Ab Non-Reactive (NonReactive); Hep C Index 0.27 S/CO (0-0.79)
[2018-12-19] MEDS: Amlodipine 5 MG TAB PO PRN (15:59)
--- NOTE | 2018-12-19 16:15 | HP ---
HISTORY OF PRESENT ILLNESS: Arnol Young is a 68-year-old male patient, who has been on chemotherapy for lymphoma, has a MediPort, has progressive chronic kidney disease since 2017, culminating in need for dialysis today. It is suspected that he has tumor lysis syndrome and I have been asked to see him regarding placement of a hemodialysis catheter for hyperkalemia and fluid overload and progressive renal failure. He has a left AC IV. He has a MediPort. He is receiving chemotherapy. Plan is to place a Trialysis catheter. Plan is to remove his left AC IV and instruct the patient, nursing, healthcare providers not to access his ACs, and it is likely he will need long-term dialysis access. We will plan placement of cuffed tunneled dialysis catheter in the next few days, pending his renal status. He is followed by Dr. Noland. ALLERGIES: PENICILLIN. SOCIAL HISTORY: Tobacco, none. Alcohol, none. MEDICATIONS: At home: 1. Amlodipine. 2. Insulin. 3. Flomax. 4. Furosemide. 5. Carvedilol. 6. Aspirin. 7. Hydrocodone. 8. Atorvastatin. 9. Allopurinol. 10. Finasteride. PAST SURGICAL HISTORY: Laparoscopic cholecystectomy; MediPort placement; coronary artery bypass grafting in 2006, he is followed by Dr. Rutledge; cardiac catheterization with stent in 2010; left eye surgery for retinal detachment in 2016; EGD, biopsy, colonoscopy, and polypectomy in October 2018; choledocholithiasis, status post ERCP, sphincterotomy on 11/15/2018; cholecystectomy in October 2018. PAST MEDICAL HISTORY: Diabetes mellitus type 2; stage IV lymphoma; hypertension; coronary artery disease status post stenting, followed by Dr. Rutledge in the past; CABG; hyperlipidemia; chronic kidney disease; end-stage renal disease; currently hyperkalemia. PHYSICAL EXAMINATION: VITAL SIGNS: Height 5 feet and 10 inches. Weight 177 pounds. BMI 25. Temperature 97.8, pulse 78. HEAD, EYES, EARS, NOSE, AND THROAT: Unremarkable. GENERAL: Left AC IV. LUNGS: Clear to auscultation. CARDIAC: Regular rate and rhythm without murmur or gallop. ABDOMEN: Soft and nontender. Scars from cholecystectomy. EXTREMITIES: Unremarkable. FLOORING MECHANIC: Dr. Rodriguez. AUDIT SPECIALIST: Dr. Omid Pichardo. Palpable radial pulses. Karen Crawley, Oncology PA has seen him in this hospitalization for diffuse large cell B-cell lymphoma. IMAGING STUDIES: Echocardiogram on 12/04/2018, 50% EF. Mild tricuspid, pulmonic, and aortic regurgitation. Moderate mitral regurgitation. Normal right atrium. Left atrium mildly dilated. ASSESSMENT: Hyperkalemia, end-stage renal disease. PLAN: Placement of a Trialysis catheter, right groin. Risks and benefits were discussed. He consents. Remove AC IV, preserve veins for dialysis access. Job ID: [id number]
[2018-12-19] MEDS: Atorvastatin Calcium 20 MG TAB PO SCH (21:00)
[2018-12-19] MEDS: Finasteride 5 MG TAB PO SCH (21:00)
[2018-12-19] MEDS: VINCRISTINE SULFATE IVPB SCH (22:47)
[2018-12-19] MEDS: SODIUM CHLORIDE 0.9% IVPB SCH (22:47)
[2018-12-19] MEDS: DOXORUBICIN IVPB SCH (22:47)
[2018-12-20 03:17] LABS: #Lymphocytes 0.3 thou/uL (1.20-3.40); #Monocytes 0.1 thou/uL (0.11-0.59); #Neutrophils 5.6 thou/uL (1.40-6.50); %Eosinophils 0.1 % (0.0-10.0); %Lymphocytes 5.2 % (21.0-51.0); %Monocytes 1.1 % (0.0-10.0); %Neutrophils 93.6 % (42.0-75.0); Hemoglobin 7.3 g/dL (14.0-18.0); Mean Corpuscular HGB CONC 33.3 g/dL (32.0-36.0); Mean Corpuscular Hemoglobin 31.1 pg (27.0-31.0); Mean Corpuscular Volume 93.4 fL (78.0-98.0); Mean Platelet Volume 6.5 fL (7.4-10.4); Platelet Count 276 thou/uL (130-400); Red Blood Cell (RBC) Count 2.33 mill/uL (4.70-6.10)
[2018-12-20 04:04] LABS: Anion Gap 14 mmol/L (10-20); BUN (Urea Nitrogen) 78 mg/dL (8.4-25.7); Calc. Creatinine Clearance 26 mL/min (70-130); Calcium 8.1 mg/dL (7.8-10.44); Carbon Dioxide 20 mmol/L (23-31); Chloride 107 mmol/L (98-107); Estimated GFR-MDRD 21; Glucose 241 mg/dL (80-115); LDH 2425 U/L (125-220); Potassium 4.5 mmol/L (3.5-5.1); Sodium 136 mmol/L (136-145); Uric Acid 6.5 mg/dL (3.5-7.2)
[2018-12-20 04:10] LABS: Phosphorus 5.3 mg/dL (2.3-4.7)
[2018-12-20] MEDS: Morphine 4 MG/ML VIAL SLOW IVP PRN ×3 (04:20→18:03)
[2018-12-20] MEDS: HumaLOG 300 UNITS/3 ML VIAL SC PRN ×4 (06:03→21:07)
[2018-12-20] MEDS ORDERED: CYCLOPHOSPHAMIDE IVPB SCH (08:00)
[2018-12-20] MEDS ORDERED: PALONOSETRON HCL 0.05 MG/ML 5 ML VIAL IVP SCH (08:00)
[2018-12-20] MEDS ORDERED: SODIUM CHLORIDE 0.9% IVPB SCH (08:00)
[2018-12-20] MEDS: Calcium Acetate 667 MG CAP PO SCH ×3 (09:11→16:57)
[2018-12-20] MEDS: Allopurinol 100 MG TAB PO SCH ×2 (09:12→21:04)
[2018-12-20] MEDS: Aspirin 325 mg Enteric Coated Tablet PO SCH (09:12)
[2018-12-20] MEDS: Famotidine 20 MG TAB PO SCH (09:12)
[2018-12-20] MEDS: Carvedilol 25 MG TAB PO SCH ×2 (09:12→21:05)
[2018-12-20] MEDS: Famotidine/PF 20 mg/2ml Vial SLOW IVP SCH (09:13)
[2018-12-20] MEDS: Heparin 5,000 UNITS/ML VIAL SC SCH ×2 (09:13→21:06)
[2018-12-20] MEDS: predniSONE 50 MG TAB PO SCH (09:14)
[2018-12-20] MEDS: Senokot S 8.6-50 MG TAB PO SCH ×2 (09:15→21:04)
[2018-12-20] MEDS: predniSONE 20 MG TAB PO SCH (09:15)
[2018-12-20] MEDS: Tamsulosin HCl 0.4 MG CAP PO SCH (09:16)
[2018-12-20] MEDS: Sulfameth/Trimethoprim DS 800-160mg TAB PO SCH (09:16)
[2018-12-20] MEDS: Sodium Chloride 0.9% 1,000 ML IV SCH (11:46)
[2018-12-20] MEDS ORDERED: Furosemide 40 MG TAB PO SCH (12:15)
--- NOTE | 2018-12-20 14:33 | PDOC.PN ---
- Subjective Encounter Start Date: 12/20/18 Encounter Start Time: 10:45 Days he is doing well. No new complaints. Minimal discomfort. - Objective Resuscitation Status - Order Detail: 12/12/18 00:41 Resuscitation Status Routine Resuscitation Status: FULL: Full Resuscitation Vital Signs & Weight: Vital Signs (12 hours) Temp Pulse Resp BP BP Pulse Ox 12/20/18 08:00 98 12/20/18 07:53 77 20 157/84 H 98 12/20/18 04:55 92 156/79 H 12/20/18 04:20 90 184/119 H 12/20/18 04:00 98.4 F 92 16 162/93 H 100 Weight Admit Weight 180 lb Weight 177 lb 1 oz I&O: 12/19/18 12/20/18 12/21/18 06:59 06:59 06:59 Intake Total 748 1787.8 Balance 748 1787.8 Result Diagrams: 12/20/18 02:55 12/20/18 02:55 Additional Labs: Accuchecks 12/20/18 12/20/18 12/19/18 11:51 05:31 19:59 POC Glucose 277 H 240 H 245 H 12/19/18 16:11 POC Glucose 270 H Phys Exam - Physical Examination Constitutional: NAD Pale. Sitting up eating lunch. Respiratory: no wheezing, no rales, no rhonchi, clear to auscultation bilateral Cardiovascular: RRR, no significant murmur, no rub Gastrointestinal: soft, non-tender, no distention, positive bowel sounds 1-2+ pitting edema LE's. Psychiatric: normal affect, A&O x 3 Skin: normal turgor Dx/Plan (1) B-cell lymphoma of extranodal site Code(s): C85.19 - UNSP B-CELL LYMPHOMA, EXTRANODAL AND SOLID ORGAN SITES Status: Acute (2) Chronic kidney disease, stage 4 (severe) Code(s): N18.4 - CHRONIC KIDNEY DISEASE, STAGE 4 (SEVERE) Status: Chronic Comment: stable, present on admission (3) HLD (hyperlipidemia) Code(s): E78.5 - HYPERLIPIDEMIA, UNSPECIFIED Status: Chronic Comment: on statin (4) HTN (hypertension) Code(s): I10 - ESSENTIAL (PRIMARY) HYPERTENSION Status: Chronic Comment: controlled (5) Bone metastases Code(s): C79.51 - SECONDARY MALIGNANT NEOPLASM OF BONE Status: Acute (6) Cancer associated pain Code(s): G89.3 - NEOPLASM RELATED PAIN (ACUTE) (CHRONIC) Status: Acute (7) Hx of CABG Status: Acute (8) DM2 (diabetes mellitus, type 2) Status: Chronic Comment: reasonably controlled (9) Anemia Code(s): D64.9 - ANEMIA, UNSPECIFIED Status: Acute (10) Constipation due to pain medication Code(s): K59.03 - DRUG INDUCED CONSTIPATION Status: Acute - Plan * Continue chemo per Onc. * Continue morphine and norco for prn pain management. * Nephrology following. HD catheter placed. HD held to accomodate chemo. * Blood sugars acceptable range. * Anemia stable for now. * Hyperkalemia resolved. * PO Lasix.
--- NOTE | 2018-12-20 15:56 | ULT ---
ULTRASOUND VESSEL MAPPING DIALYSIS ACCESS: HISTORY: End stage renal disease. COMPARISON: None. TECHNIQUE: Real-time barajas-scale, color Doppler, and spectral analysis of the upper and lower extremity vessels i s performed. FINDINGS: RIGHT BRACHIAL ARTERY: 5.7 mm RADIAL ARTERY: 2.4 mm ULNAR ARTERY: 1.7 mm CEPHALIC BASILIC PROXIMAL ARM 1.2 mm 0.8 mm MID ARM 0.6 mm 0.8 mm DISTAL ARM 1.4 mm 1.2 mm ANTECUBITAL FOSSA 2.7 mm 1.4 mm PROXIMAL FOREARM 1.7 mm 0.8 mm MID FOREARM 1.3 mm 0.8 mm DISTAL FOREARM 1.1 mm 0.8 mm LEFT BRACHIAL ARTERY: 5.9 mm RADIAL ARTERY: 2.4 mm ULNAR ARTERY: 1.3 mm CEPHALIC BASILIC PROXIMAL ARM 1.4 mm 1.5 mm MID ARM 0.9 mm 1.3 mm DISTAL ARM Thrombosed 1.3 mm ANTECUBITAL FOSSA Thrombosed 1.2 mm PROXIMAL FOREARM Thrombosed 0.4 mm MID FOREARM 1.5 mm 0.3 mm DISTAL FOREARM 1.4 mm 0.3 mm IMPRESSION: 1. Vessel sizes as above. 2. Thrombosed left cephalic vein in the upper arm to the elbow. POS: [facility]
[2018-12-20 17:03] LABS: Anion Gap 14 mmol/L (10-20); BUN (Urea Nitrogen) 77 mg/dL (8.4-25.7); Calc. Creatinine Clearance 27 mL/min (70-130); Calcium 8.1 mg/dL (7.8-10.44); Carbon Dioxide 19 mmol/L (23-31); Chloride 106 mmol/L (98-107); Estimated GFR-MDRD 22; Glucose 214 mg/dL (80-115); LDH 2301 U/L (125-220); Potassium 4.3 mmol/L (3.5-5.1); Sodium 135 mmol/L (136-145); Uric Acid 6.5 mg/dL (3.5-7.2)
--- NOTE | 2018-12-20 17:34 | PRG ---
DATE OF SERVICE: 12/20/2018 SUBJECTIVE: Patient was seen and examined at bedside and overnight events noted. Patient denies any shortness of breath or chest pain or palpitation. No history of nausea or vomiting or diarrhea or fever or chills or cramps. OBJECTIVE: GENERAL: This is a well-built male, in no apparent distress. VITAL SIGNS: Temperature 98.4. Heart rate 77. Respiratory rate . Blood pressure 157/84. HEENT: Atraumatic, normocephalic. Oral mucosa is moist. NECK: Supple. CARDIOVASCULAR: S1, S2 heard. Rate and rhythm regular. RESPIRATORY: Clear to auscultation. GASTROINTESTINAL: Abdomen is soft. MUSCULOSKELETAL: No tenderness. No edema. DERMATOLOGIC: No skin rash. NEUROLOGIC: Alert and awake and oriented X3. No focal neurologic deficits. Moving all the extremities. PSYCHIATRIC: Mood and affect normal. LABORATORY DATA: Potassium is 4.5, BUN is 78, and creatinine is 2.9. ASSESSMENT AND PLAN: 1. Acute kidney injury on chronic kidney disease, stage 4. Renal function is stable. . 2. Hyperkalemia, much better. Limit potassium intake. 3. Possible tumor lysis syndrome. 4. Anemia, stable. 5. Hypertension, stable. Monitor blood pressure. Potassium level is better. Renal function is stable without dialysis. The patient did not undergo dialysis yesterday, and we will continue to monitor. Limit potassium intake. We will follow. Job ID: [id number]
[2018-12-20] MEDS: Finasteride 5 MG TAB PO SCH (21:04)
[2018-12-20] MEDS: HYDROcodone/Acetaminophen 7.5/325 mg Tablet PO PRN (21:05)
[2018-12-20] MEDS: Atorvastatin Calcium 20 MG TAB PO SCH (21:05)
[2018-12-21 05:30] LABS: #Lymphocytes 0.4 thou/uL (1.20-3.40); #Neutrophils 6.3 thou/uL (1.40-6.50); %Eosinophils 0.1 % (0.0-10.0); %Lymphocytes 5.8 % (21.0-51.0); %Monocytes 0.2 % (0.0-10.0); %Neutrophils 93.9 % (42.0-75.0); Hemoglobin 7.8 g/dL (14.0-18.0); Mean Corpuscular HGB CONC 31.7 g/dL (32.0-36.0); Mean Corpuscular Hemoglobin 29.6 pg (27.0-31.0); Mean Corpuscular Volume 93.3 fL (78.0-98.0); Mean Platelet Volume 6.6 fL (7.4-10.4); Platelet Count 264 thou/uL (130-400); RBC Distribution Width 12.9 % (11.5-14.5); Red Blood Cell (RBC) Count 2.62 mill/uL (4.70-6.10); White Blood Cell (WBC) Count 6.7 thou/uL (4.8-10.8)
[2018-12-21 05:49] LABS: Anion Gap 12 mmol/L (10-20); BUN (Urea Nitrogen) 78 mg/dL (8.4-25.7); Calc. Creatinine Clearance 27 mL/min (70-130); Carbon Dioxide 21 mmol/L (23-31); Chloride 106 mmol/L (98-107); Estimated GFR-MDRD 22; Glucose 254 mg/dL (80-115); LDH 1934 U/L (125-220); Potassium 4.2 mmol/L (3.5-5.1); Sodium 135 mmol/L (136-145); Uric Acid 6.7 mg/dL (3.5-7.2)
[2018-12-21] MEDS: HumaLOG 300 UNITS/3 ML VIAL SC PRN (06:10)
[2018-12-21] MEDS: Carvedilol 25 MG TAB PO SCH (10:02)
[2018-12-21] MEDS: Calcium Acetate 667 MG CAP PO SCH ×3 (10:02→16:54)
[2018-12-21] MEDS: Aspirin 325 mg Enteric Coated Tablet PO SCH (10:03)
[2018-12-21] MEDS: Allopurinol 100 MG TAB PO SCH (10:03)
[2018-12-21] MEDS: Tamsulosin HCl 0.4 MG CAP PO SCH (10:03)
[2018-12-21] MEDS: Senokot S 8.6-50 MG TAB PO SCH (10:03)
[2018-12-21] MEDS: Heparin 5,000 UNITS/ML VIAL SC SCH (10:03)
[2018-12-21] MEDS: Famotidine 20 MG TAB PO SCH (10:03)
[2018-12-21] MEDS: Famotidine/PF 20 mg/2ml Vial SLOW IVP SCH (10:04)
--- NOTE | 2018-12-21 10:10 | OP ---
DATE OF PROCEDURE: 12/19/2018 PREOPERATIVE DIAGNOSES: End-stage renal disease, diffuse large B-cell lymphoma, tenolysis, progressive kidney disease in 2017, hyperkalemia, poor IV access, left AC IV. PROCEDURE PERFORMED: Right femoral vein Trialysis catheter. ANESTHESIA: 1% Xylocaine. DESCRIPTION OF PROCEDURE: The patient was at bedside. Right groin was prepared with ChloraPrep, draped in routine fashion. The clip was not available. Local anesthetic was infiltrated in the skin and subcutaneous tissue. Trocar catheter was cannulated in the femoral vein. Seldinger technique was used to place a Trialysis catheter, removed the J-wire, securing the catheter with 3-0 nylon suture. Sterile dressing was applied. Each port aspirated, blood flushed with saline solution. Left AC IV was removed. Job ID: [id number]
[2018-12-21 15:27] VITALS: TEMP 97.8
[2018-12-21 16:34] VITALS: BP 140/66
[2018-12-21] MEDS: Ondansetron PF 4 MG/2 ML Vial SLOW IVP PRN (16:52)
[2018-12-21] MEDS ORDERED: PEGFILGRASTIM-JMDB 6 MG/0.6 ML SYRINGE SQ SCH (22:00)
--- NOTE | 2018-12-22 07:58 | PRG ---
DATE OF SERVICE: 12/21/2018 SUBJECTIVE: Patient was seen and examined at bedside and overnight events noted. Patient denies any shortness of breath or chest pain or palpitation. No history of nausea or vomiting or diarrhea or fever or chills or cramps. OBJECTIVE: GENERAL: This is a well-developed male, in no apparent distress. VITAL SIGNS: Temperature 97.8, pulse 93, respiratory rate 20, blood pressure 140/66. HEENT: Atraumatic, normocephalic. Oral mucosa is moist NECK: Supple. CARDIOVASCULAR: S1, S2 heard. Rate and rhythm regular. RESPIRATORY: Clear to auscultation. GASTROINTESTINAL: Abdomen is soft. MUSCULOSKELETAL: No tenderness. No edema. DERMATOLOGIC: No skin rash. NEUROLOGIC: Alert and awake and oriented X3. No focal neurologic deficits. Moving all the extremities. PSYCHIATRIC: Mood and affect normal. LABORATORY DATA: Potassium is 4.2, BUN 78, creatinine 2.84 . ASSESSMENT AND PLAN: 1. Acute kidney injury on chronic kidney disease, stage 4. Renal function is stable closely at his baseline. 2. Hyponatremia. 3. Hyperlipidemia, better. 4. Anemia, stable. 5. Renal function is closely at his baseline. We will follow. Job ID: [id number]
--- NOTE | 2018-12-23 23:01 | EKG ---
Test Reason : Blood Pressure : / mmHG Vent. Rate : 093 BPM Atrial Rate : 093 BPM P-R Int : 144 ms QRS Dur : 102 ms QT Int : 404 ms P-R-T Axes : 044 021 062 degrees QTc Int : 502 ms Sinus rhythm with frequent Premature ventricular complexes in a pattern of bigeminy Nonspecific ST and T wave abnormality Abnormal ECG When compared with ECG of 11-DEC-2018 19:27, Premature ventricular complexes are now Present Nonspecific T wave abnormality no longer evident in Lateral leads Confirmed by SHANE CAO M.D. ([id number]) on 12/23/2018 11:01:09 PM Referred By: DHRUV Confirmed By:SHANE CAO M.D.
== END 2018-12-21 19:15 | disposition home or self-care (01) | DRG 840 ==
LOC: ERS 19:19 → ERHOLD 21:00 → 2NO 21:19 → ONC 12-13 15:50 → IMCU/EMU 12-19 08:41
PROVIDERS: ADMIT Internal Medicine; ATTEND Internal Medicine
PROC: 30233N1 Transfusion of Nonautologous Red Blood Cells into Peripheral Vein, Percutaneous Approach (ICD-10-PCS; principal; 2018-12-15)
PROC: 06HM33Z Insertion of Infusion Device into Right Femoral Vein, Percutaneous Approach (ICD-10-PCS; 2018-12-19)
DX: C83.39 Diffuse large B-cell lymphoma, extranodal and solid organ sites (principal); I50.23 Acute on chronic systolic (congestive) heart failure; E88.3 Tumor lysis syndrome; N17.9 Acute kidney failure, unspecified; I13.0 Hypertensive heart and chronic kidney disease with heart failure and stage 1 through stage 4 chronic kidney disease, or unspecified chronic kidney disease; N18.4 Chronic kidney disease, stage 4 (severe); E87.2 Acidosis; E87.1 Hypo-osmolality and hyponatremia; E87.5 Hyperkalemia; G89.3 Neoplasm related pain (acute) (chronic); I25.10 Atherosclerotic heart disease of native coronary artery without angina pectoris; E11.22 Type 2 diabetes mellitus with diabetic chronic kidney disease; E83.39 Other disorders of phosphorus metabolism; D63.1 Anemia in chronic kidney disease; E78.5 Hyperlipidemia, unspecified; R74.8 Abnormal levels of other serum enzymes; K59.03 Drug induced constipation; Z95.1 Presence of aortocoronary bypass graft; Z79.4 Long term (current) use of insulin; Z79.899 Other long term (current) drug therapy; Z79.82 Long term (current) use of aspirin; Z88.0 Allergy status to penicillin
CPT/HCPCS: 20225; 36415; 36416; 36430; 62270; 71045; 77012; 80048; 80053; 80061; 81003; 81015; 82550; 82553; 82607; 82746; 82945; 83540; 83550; 83605; 83615; 83690; 83880; 84100; 84157; 84484; 84550; 85025; 85379; 85610; 85730; 86704; 86706; 86803; 86850; 86900; 86901; 87340; 88112; 88184; 88237; 88264; 88280; 88305; 88311; 88313; 88341; 88342; 89051; 93005; 93010; 93798; 93970; 94760; 96361; 96374; 96375; 96377; G0365; J1100; J1200; J1453; J1642; J1644; J2175; J2250; J2270; J2405; J2469; J2505; J3010; J7050; J7506; J9000; J9070; J9310; J9312; J9370; P9016; S0028

== ENCOUNTER 2018-12-28 18:21 | Day surgery (SDC) | payer MEDICARE ==
[2018-12-28] MEDS ORDERED: diphenhydrAMINE 25 MG CAP PO SCH (19:45)
[2018-12-28] MEDS: Acetaminophen 500 MG TAB PO SCH ×2 (21:27)
[2018-12-28 21:30] VITALS: BMI 27.1
[2018-12-29 05:37] VITALS: BP 164/85; TEMP 98.4
[2018-12-29 06:53] LABS: Hemoglobin 8.2 g/dL (14.0-18.0); Mean Corpuscular HGB CONC 33.2 g/dL (32.0-36.0); Mean Corpuscular Hemoglobin 30.3 pg (27.0-31.0); Mean Platelet Volume 7.7 fL (7.4-10.4); Platelet Count 80 thou/uL (130-400); Platelet Morphology Comment Appears Decreased; RBC Distribution Width 12.6 % (11.5-14.5); RBC Morphology Normal; Red Blood Cell (RBC) Count 2.71 mill/uL (4.70-6.10); White Blood Cell (WBC) Count 0.5 thou/uL (4.8-10.8)
== END 2018-12-29 06:32 | disposition home or self-care (01) ==
LOC: SDC 18:21 → 2SE 18:21 → UNDOADMIN 18:21 → SDC 12-29 06:32 → UNDODISIN 12-29 06:32 → EDSTATUS 12-29 11:20
PROVIDERS: ATTEND Internal Medicine Hematology & Oncology
PROC: 30233N1 Transfusion of Nonautologous Red Blood Cells into Peripheral Vein, Percutaneous Approach (ICD-10-PCS; principal; 2018-12-28)
DX: D64.9 Anemia, unspecified (principal); Z79.82 Long term (current) use of aspirin; Z79.899 Other long term (current) drug therapy; Z88.0 Allergy status to penicillin
CPT/HCPCS: 36430; 80053; 82248; 83615; 84100; 84550; 85025; 86850; 86900; 86901; 86920; P9016; 36415; Q0163

== ENCOUNTER 2019-01-10 09:25 | Inpatient (IN) | payer MEDICARE, OTHER ==
[2019-01-10 10:33] VITALS: BMI 25.6
[2019-01-10] MEDS ORDERED: Dexamethasone 20 MG in Sodium Chloride 0.9% 50 ML IVPB SCH (11:15)
[2019-01-10] MEDS ORDERED: diphenhydrAMINE 50 MG in Sodium Chloride 0.9% 100 ML IVPB SCH (11:15)
[2019-01-10] MEDS ORDERED: Famotidine/PF 20 mg/2ml Vial SLOW IVP SCH ×2 (11:15→13:45)
[2019-01-10] MEDS ORDERED: Acetaminophen 325 MG TAB PO SCH ×2 (11:15→13:15)
[2019-01-10] MEDS ORDERED: RITUXIMAB IVPB SCH (11:30)
[2019-01-10] MEDS ORDERED: DOXORUBICIN IVPB SCH (11:30)
[2019-01-10] MEDS ORDERED: SODIUM CHLORIDE 0.9% IVPB SCH ×2 (11:30)
[2019-01-10] MEDS ORDERED: VINCRISTINE SULFATE IVPB SCH (11:30)
[2019-01-10] MEDS ORDERED: Dextrose 5% in Water 1,000 ML IV PRN (13:33)
[2019-01-10] MEDS ORDERED: Dextrose 50% Abboject 50 ML SYRINGE SLOW IVP PRN (13:33)
--- NOTE | 2019-01-10 14:35 | HP ---
PRIMARY CARE PROVIDER: Tatianna Reid MD CHIEF COMPLAINT: The patient needs chemotherapy. HISTORY OF PRESENT ILLNESS: Mr. Young is a pleasant 68-year-old gentleman, who was seen at [facility] on January 10, 2019 after he was sent to the hospital by his oncologist for chemotherapy. He was diagnosed with B-cell lymphoma in October 2018. He was subsequently started on chemotherapy. He is due for his second cycle of chemotherapy. He denies any chest pain or shortness of breath. He denies any fevers or chills. He denies any nausea or vomiting. He reports weakness, especially in the lower extremities. His reports that he has fallen 3 times in the last 1-1/2 weeks. REVIEW OF SYSTEMS: All other systems reviewed and found to be negative. PAST MEDICAL HISTORY: Diabetes mellitus type 2, B-cell lymphoma, coronary artery disease, dyslipidemia, chronic kidney disease stage 4. PAST SURGICAL HISTORY: Coronary artery bypass graft x4 vessels in 2006; right eye surgery in 2010; cardiac catheterization with stent in 2010; left eye surgery for retinal detachment in 2016; EGD with biopsy and colonoscopy with polypectomy in October 2018; choledocholithiasis, status post sphincterotomy with stone extraction in October 2018; and cholecystectomy in October 2018. FAMILY HISTORY: Father had thyroid cancer and brother had pancreatic cancer. SOCIAL HISTORY: The patient denies current tobacco use, alcohol use, or recreational drug use. ALLERGIES: THE PATIENT IS ALLERGIC TO PENICILLIN. CURRENT MEDICATIONS: 1. Allopurinol 100 mg daily. 2. Aspirin 325 mg daily. 3. Atorvastatin 20 mg at bedtime. 4. Carvedilol 25 mg 2 times a day. 5. Finasteride 5 mg at bedtime. 6. Lasix 20 mg as needed. 7. Tums 1000 mg every 4 hours as needed. CODE STATUS: I discussed his code status. He is full code. PHYSICAL EXAMINATION: GENERAL: On examination, Mr. Young is awake and alert, not in acute distress. VITAL SIGNS: Blood pressure is 158/77, pulse 77, respiratory rate 18, and oxygen saturation 94% on room air. He is afebrile. EYES: No scleral icterus. No conjunctival pallor. ENT: Moist mucosal membranes. No oropharyngeal erythema or exudates. NECK: Supple, nontender. Trachea midline. RESPIRATORY: Accessory muscles of breathing are not active. Chest wall movements are symmetric bilaterally. Lungs are clear to auscultation without wheeze, rhonchi, or crepitations. CARDIOVASCULAR: S1 and S2 are heard, regular. Peripheral pulses palpable. NEUROLOGIC: Cranial nerves 2 through 12 are intact. ABDOMEN: Soft, nontender, bowel sounds heard. SKIN: No rashes or subcutaneous nodules. MUSCULOSKELETAL: Power is 5/5 in all 4 extremities. LYMPHATIC: No cervical lymphadenopathy. PSYCHIATRIC: Normal mood. Normal affect. The patient is oriented to person, place, and time. LABORATORY AND DIAGNOSTIC DATA: Mr. Young's labs and investigations were reviewed. He has not had any blood work done today. ASSESSMENT AND PLAN: Mr. Young is a pleasant 68-year-old gentleman, who was seen at [facility] on January 10, 2019. His problem list includes: 1. B-cell lymphoma: Mr. Young is presenting for chemotherapy for B-cell lymphoma. He will be admitted to the hospital for further management. Chemotherapy per Oncology Service. Daily labs will be followed. 2. Diabetes mellitus type 2: Start Accu-Cheks, insulin sliding scale. 3. Chronic kidney disease stage 4: We will check creatinine and electrolytes. 4. Coronary artery disease: Appears to be stable. 5. History of frequent falls: Consult Physical Therapy for evaluation and treatment. 6. Hypertension: Monitor vital signs, titrate antihypertensives as needed. LEVEL OF RISK: Moderate. LEVEL OF COMPLEXITY: Moderate. Many thanks for allowing me to participate in Mr. Young's care. Please feel free to contact me with any questions or concerns. Job ID: [id number] [id number]
[2019-01-10] MEDS: Heparin 5,000 UNITS/ML VIAL SC SCH ×2 (18:20→20:31)
[2019-01-10] MEDS: HumaLOG 300 UNITS/3 ML VIAL SC PRN (20:35)
[2019-01-10] MEDS: SODIUM CHLORIDE 0.9% IVPB SCH (20:48)
[2019-01-10] MEDS: ETOPOSIDE IVPB SCH (20:48)
--- NOTE | 2019-01-10 22:43 | CON ---
DATE OF CONSULTATION: 01/10/2019 REASON FOR CONSULTATION: Lymphoma. HISTORY OF PRESENT ILLNESS: A 68-year-old male with history of double expressor diffuse large B-cell lymphoma, stage IV, with widespread lymphadenopathy and osseous metastatic disease, currently on chemotherapy with dose adjusted EPOCH/R, being admitted for cycle two of treatment. The patient received cycle one of treatment in the hospital from Thursday, December 15, 2018, until December 19, 2018, and tolerated therapy well. During admission, he did develop mild tumor lysis and required transfer to the telemetry floor. However, this resolved quickly. The patient's kidney function has fluctuated during treatment and currently his GFR is 20, though this is his baseline. The patient required a dose reduction of his chemotherapy for CKD as well as neutropenia. Today, the patient is without significant complaints other than lower extremity swelling which is chronic and dependent with this appearance in the morning followed by rapid accumulation during the day. These symptoms are improved with leg elevation. He also has mild left-sided rib pain from a metastatic lesion. He denies any nausea, vomiting, diarrhea, constipation, fevers, or sweats currently. REVIEW OF SYSTEMS: A 10-point review of systems is negative except as per HPI. PAST MEDICAL HISTORY: Diffuse large B-cell lymphoma, type 2 diabetes, hypertension, CAD, hyperlipidemia, CKD. PAST SURGICAL HISTORY: CABG, vitrectomy of the right eye, left eye surgery for retinal detachment, cholecystectomy, sphincterotomy with gallstone extraction. FAMILY HISTORY: Thyroid cancer in his father. Pancreatic cancer in his brother. SOCIAL HISTORY: The patient is with four children, lives with his spouse. He is a former smoker, about one pack per day x30 years and quit over 20 years ago. PHYSICAL EXAMINATION: VITAL SIGNS: Temperature 97.4, pulse 77, respirations 18, saturating 94% on room air, blood pressure 132/62. GENERAL APPEARANCE: The patient is lying in bed, in no acute distress. Appears comfortable. HEENT: Normocephalic, atraumatic. No palpable lymphadenopathy in the cervical or axillary areas. No chest tenderness to palpation. RESPIRATIONS: Clear to auscultation bilaterally without wheezes, rales, or rhonchi. CARDIOVASCULAR: S1, S2 with regular rate and rhythm. ABDOMEN: Soft, nondistended, nontender to palpation. EXTREMITIES: 2+ lower extremity edema bilaterally. NEUROLOGIC: Nonfocal. Cranial nerves 2 through 12 are grossly intact. PSYCHIATRIC: The patient is awake, alert, and oriented x3. LABORATORY DATA: White blood cells 4.8, hemoglobin 7.6, hematocrit 23.6, platelets 462, absolute neutrophil count 3.3. Sodium 141, potassium 5.5, chloride 111, bicarb 25, glucose 140, BUN 25, creatinine 3.11, calcium 7.4, phosphorus 2.8, uric acid 5.1, albumin 2.3, alkaline phosphatase 158, LDH 360, GFR 20. ASSESSMENT AND PLAN: A 68-year-old male with double expressor diffuse large B-cell lymphoma, stage IV, admitted for cycle two of dose adjusted EPOCH/R. I have dose reduced the patient's chemotherapy for his poor renal function, as well as neutropenia with his 1st dose as per guidelines. The patient tolerated 1st cycle well other than mild tumor lysis and currently blood work, it is okay to begin treatment. We will follow the patient closely with daily monitoring of his blood counts, his electrolytes, LDH, and uric acid and for any adverse effects of chemotherapy. The patient should work with Physical Therapy to help with his strength, which is slowly improving from his baseline. We will continue to follow throughout his hospitalization while he receives chemotherapy. Thank you for this consult. Job ID: [id number]
[2019-01-11] MEDS ORDERED: VINCRISTINE SULFATE IVPB SCH (06:00)
[2019-01-11] MEDS ORDERED: SODIUM CHLORIDE 0.9% IVPB SCH (06:00)
[2019-01-11] MEDS ORDERED: DOXORUBICIN IVPB SCH (06:00)
[2019-01-11 06:16] LABS: #Eosinphils 0.1 thou/uL (0.0-0.7); #Lymphocytes 0.4 thou/uL (1.20-3.40); #Monocytes 0.1 thou/uL (0.11-0.59); %Lymphocytes 7.7 % (21.0-51.0); %Monocytes 1.9 % (0.0-10.0); %Neutrophils 89.4 % (42.0-75.0); Hemoglobin 8.4 g/dL (14.0-18.0); Mean Corpuscular HGB CONC 32.4 g/dL (32.0-36.0); Mean Corpuscular Hemoglobin 31.2 pg (27.0-31.0); Mean Platelet Volume 6.4 fL (7.4-10.4); Platelet Count 376 thou/uL (130-400); RBC Distribution Width 15.4 % (11.5-14.5); Red Blood Cell (RBC) Count 2.69 mill/uL (4.70-6.10); White Blood Cell (WBC) Count 5.6 thou/uL (4.8-10.8)
[2019-01-11] MEDS: HumaLOG 300 UNITS/3 ML VIAL SC PRN ×4 (06:38→20:30)
[2019-01-11 06:46] LABS: Anion Gap 11 mmol/L (10-20); BUN (Urea Nitrogen) 28 mg/dL (8.4-25.7); Calc. Creatinine Clearance 26 mL/min (70-130); Calcium 7.7 mg/dL (7.8-10.44); Carbon Dioxide 22 mmol/L (23-31); Chloride 111 mmol/L (98-107); Estimated GFR-MDRD 21; Glucose 257 mg/dL (80-115); Potassium 5.5 mmol/L (3.5-5.1); Sodium 138 mmol/L (136-145)
[2019-01-11] MEDS ORDERED: predniSONE 20 MG TAB PO SCH (08:00)
[2019-01-11] MEDS ORDERED: predniSONE 50 MG TAB PO SCH (08:00)
[2019-01-11] MEDS ORDERED: Calcium Carbonate 500 MG ChewTAB PO PRN (08:20)
[2019-01-11] MEDS ORDERED: guaiFENesin/Dextromethorphan 10 ML UDCUP PO PRN (08:26)
[2019-01-11] MEDS: Heparin 5,000 UNITS/ML VIAL SC SCH ×3 (08:28→20:30)
[2019-01-11] MEDS ORDERED: Enoxaparin Sodium 30 MG/0.3 ML SYRINGE SC SCH (09:00)
[2019-01-11] MEDS ORDERED: Aspirin 81 mg Enteric Coated Tablet PO SCH (09:00)
[2019-01-11] MEDS ORDERED: Carvedilol 25 MG TAB PO SCH (09:00)
[2019-01-11 09:08] LABS: LDH 432 U/L (125-220); Phosphorus 3.1 mg/dL (2.3-4.7)
[2019-01-11] MEDS: Allopurinol 100 MG TAB PO SCH (09:26)
[2019-01-11] MEDS: Aspirin 325 mg Enteric Coated Tablet PO SCH (09:28)
[2019-01-11] MEDS: Carvedilol 25 MG TAB PO SCH ×2 (09:29→20:29)
--- NOTE | 2019-01-11 09:41 | RAD ---
SINGLE VIEW OF THE CHEST: Comparison: 12-11-18 History: Cough, lymphoma. FINDINGS: Single view of the chest shows an enlarged but stable cardiomediastinal silhouette. The patient is st atus post sternotomy. The Mediport is unchanged in position. Airspace opacity is seen projecting over both lower lobes which may represent atelectasis or infiltrate. IMPRESSION: Bibasilar atelectasis versus infiltrate. POS: C
[2019-01-11] MEDS ORDERED: Sulfameth/Trimethoprim DS 800-160mg TAB PO SCH (11:00)
[2019-01-11] MEDS: Guaifenesin DM 100-10/5 ML UDCUP PO PRN ×2 (12:26→19:26)
--- NOTE | 2019-01-11 12:57 | PDOC.PN ---
- Subjective Encounter Start Date: 01/11/19 Encounter Start Time: 07:00 Pt seen for followup re: B-cell lymphoma. Feels better. - Objective Resuscitation Status - Order Detail: 01/10/19 13:28 Resuscitation Status Routine Resuscitation Status: FULL: Full Resuscitation Discussed with: patient Vital Signs & Weight: Vital Signs (12 hours) Temp Pulse Resp BP BP Pulse Ox 01/11/19 12:00 97.4 F L 92 20 159/87 H 95 01/11/19 08:00 99 01/11/19 07:35 97.4 F L 84 18 157/92 H 99 01/11/19 04:00 97.3 F L 85 18 151/75 H 93 L Weight Weight 178 lb 12.8 oz Result Diagrams: 01/11/19 06:05 01/11/19 06:05 Additional Labs: Accuchecks 01/11/19 01/11/19 01/10/19 12:10 05:04 20:15 POC Glucose 316 H 265 H 216 H 01/10/19 15:49 POC Glucose 239 H Phys Exam - Physical Examination Constitutional: NAD HEENT: moist MMs Neck: supple Respiratory: clear to auscultation bilateral Cardiovascular: RRR Gastrointestinal: soft Neurological: moves all 4 limbs Psychiatric: normal affect Dx/Plan (1) B-cell lymphoma Code(s): C85.10 - UNSPECIFIED B-CELL LYMPHOMA, UNSPECIFIED SITE Status: Chronic Comment: pt is here for chemotherapy. Follow daily labs. (2) DM2 (diabetes mellitus, type 2) Status: Chronic Comment: reasonably controlled (3) HLD (hyperlipidemia) Code(s): E78.5 - HYPERLIPIDEMIA, UNSPECIFIED Status: Chronic Comment: on statin (4) HTN (hypertension) Code(s): I10 - ESSENTIAL (PRIMARY) HYPERTENSION Status: Chronic Comment: controlled - Plan * . Review of Systems - Review of Systems Constitutional: weakness Cardiovascular: negative: chest pain, palpitations, orthopnea, paroxysmal nocturnal dyspnea, edema, light headedness Gastrointestinal: negative: Nausea, Vomiting, Abdominal Pain, Diarrhea, Constipation, Melena, Hematochezia - Medications/Allergies Allergies/Adverse Reactions: Allergies Allergy/AdvReac Type Severity Reaction Status Date / Time Penicillins Allergy Severe DIFFICULTY Verified 12/12/18 12:04 BREATHING Medications: Current Medications [facility]) [facility] Last Admin: 01/11/19 09:26 Dose: 100 mg Aspirin (Ecotrin) 325 mg PO DAILY [facility] Last Admin: 01/11/19 09:28 Dose: 325 mg Atorvastatin Calcium (Lipitor) 20 mg PO HS [facility] Calcium Carbonate (Tums) 1,000 mg PO Q4H PRN PRN Reason: Heartburn or Indigestion Carvedilol (Coreg) 25 mg PO BID [facility] Last Admin: 01/11/19 09:29 Dose: 25 mg Dextrose/Water (Dextrose 50%) 25 gm SLOW IVP PRN PRN PRN Reason: Hypoglycemia Finasteride (Proscar) 5 mg PO HS [facility] Furosemide (Lasix) 20 mg PO PRN PRN PRN Reason: Edema Glucagon (Glucagon) 1 mg IM PRN PRN PRN Reason: Hypoglycemia Guaifenesin/Dextromethorphan (Robitussin Dm) 10 ml PO Q6H PRN PRN Reason: Cough Last Admin: 01/11/19 12:26 Dose: 10 ml Heparin Sodium (Porcine) (Heparin) 5,000 units SC TID [facility] Last Admin: 01/11/19 08:28 Dose: 5,000 units Etoposide 75 mg/ Sodium (Chloride) 503.75 mls @ 503.75 mls/hr IVPB [facility] Stop: 01/13/19 23:00 Last Admin: 01/10/19 20:48 Dose: 503.75 mls Dextrose/Water (D5w) 1,000 mls @ 0 mls/hr IV .Q0M PRN PRN Reason: Hypoglycemia Doxorubicin HCl 16 mg/Vincristine Sulfate 0.8 mg/Sodium Chloride 100 mls @ 4.167 mls/hr IVPB [facility] Stop: 01/13/19 23:59 Cyclophosphamide 1 gm/Cyclophosphamide 190 mg/Sodium Chloride 559.5 mls @ 559.5 mls/hr IVPB [facility] Stop: 01/14/19 23:59 Insulin Human Lispro (Humalog) 0 units SC .MILD SLIDING SCALE PRN PRN Reason: Mild Correctional Scale Last Admin: 01/11/19 12:25 Dose: 5 unit Ondansetron HCl (Zofran Odt) 4 mg PO Q6H PRN PRN Reason: Nausea/Vomiting Palonosetron (Aloxi) 0.25 mg IVP [facility] Stop: 01/14/19 23:00 Prednisone (Prednisone) 100 mg PO QAM-WM [facility] Stop: 01/15/19 10:00 Prednisone (Prednisone) 20 mg PO QAM-WM [facility] Stop: 01/15/19 10:00 Senna/Docusate Sodium (Senokot S) 2 tab PO BID PRN PRN Reason: Constipation Trimethoprim/Sulfamethoxazole (Bactrim Ds) 1 tab PO NOW [facility] Stop: 01/11/19 13:00 Last Admin: 01/11/19 11:47 Dose: 1 tab Trimethoprim/Sulfamethoxazole (Bactrim Ds) 1 tab PO WeFr [facility] Stop: 01/14/19 09:01
[2019-01-11] MEDS ORDERED: Ondansetron HCl/PF 8 MG in Sodium Chloride 0.9% 50 ML IVPB PRN (13:17)
[2019-01-11] MEDS: SODIUM CHLORIDE 0.9% IVPB SCH (15:19)
[2019-01-11] MEDS: ETOPOSIDE IVPB SCH (15:19)
[2019-01-11] MEDS: Finasteride 5 MG TAB PO SCH (20:29)
[2019-01-11] MEDS: Atorvastatin Calcium 20 MG TAB PO SCH (20:29)
[2019-01-11] MEDS ORDERED: Finasteride 5 MG TAB PO SCH (21:00)
[2019-01-11] MEDS ORDERED: Atorvastatin Calcium 20 MG TAB PO SCH (21:00)
[2019-01-12] MEDS: Furosemide 20 MG TAB PO PRN ×2 (01:17→21:16)
[2019-01-12] MEDS: Guaifenesin DM 100-10/5 ML UDCUP PO PRN (01:17)
[2019-01-12 04:45] LABS: #Lymphocytes 0.5 thou/uL (1.20-3.40); #Monocytes 0.4 thou/uL (0.11-0.59); #Neutrophils 4.9 thou/uL (1.40-6.50); %Basophils 0.2 % (0.0-1.0); %Eosinophils 0.3 % (0.0-10.0); %Lymphocytes 7.9 % (21.0-51.0); %Monocytes 6.4 % (0.0-10.0); %Neutrophils 85.4 % (42.0-75.0); Hemoglobin 7.5 g/dL (14.0-18.0); Mean Corpuscular HGB CONC 32.3 g/dL (32.0-36.0); Mean Corpuscular Hemoglobin 31.2 pg (27.0-31.0); Mean Corpuscular Volume 96.5 fL (78.0-98.0); Mean Platelet Volume 6.8 fL (7.4-10.4); Platelet Count 377 thou/uL (130-400); RBC Distribution Width 15.7 % (11.5-14.5); White Blood Cell (WBC) Count 5.8 thou/uL (4.8-10.8)
[2019-01-12 05:09] LABS: Anion Gap 13 mmol/L (10-20); BUN (Urea Nitrogen) 36 mg/dL (8.4-25.7); Calc. Creatinine Clearance 26 mL/min (70-130); Calcium 7.3 mg/dL (7.8-10.44); Carbon Dioxide 20 mmol/L (23-31); Chloride 110 mmol/L (98-107); Estimated GFR-MDRD 20; Glucose 239 mg/dL (80-115); Potassium 4.9 mmol/L (3.5-5.1); Sodium 138 mmol/L (136-145); Uric Acid 5.5 mg/dL (3.5-7.2)
[2019-01-12 05:14] LABS: LDH 325 U/L (125-220)
[2019-01-12] MEDS: HumaLOG 300 UNITS/3 ML VIAL SC PRN ×3 (05:53→20:54)
[2019-01-12] MEDS ORDERED: predniSONE 50 MG TAB PO SCH (09:00)
[2019-01-12] MEDS ORDERED: predniSONE 20 MG TAB PO SCH (09:00)
[2019-01-12] MEDS: Allopurinol 100 MG TAB PO SCH (09:04)
[2019-01-12] MEDS: Sulfameth/Trimethoprim DS 800-160mg TAB PO SCH (09:04)
[2019-01-12] MEDS: predniSONE 50 MG TAB PO SCH (09:05)
[2019-01-12] MEDS: predniSONE 20 MG TAB PO SCH (09:05)
[2019-01-12] MEDS: Furosemide 20 MG TAB PO SCH (09:05)
[2019-01-12] MEDS: Carvedilol 25 MG TAB PO SCH ×2 (09:06→20:53)
[2019-01-12] MEDS: Aspirin 325 mg Enteric Coated Tablet PO SCH (09:06)
[2019-01-12] MEDS: Heparin 5,000 UNITS/ML VIAL SC SCH ×3 (09:08→20:53)
[2019-01-12] MEDS: Doxycycline 100 MG CAP PO SCH ×2 (10:12→21:16)
--- NOTE | 2019-01-12 12:36 | PDOC.PN ---
- Subjective Encounter Start Date: 01/12/19 Encounter Start Time: 07:00 Pt seen for followup re: B-cell lymphoma. - Objective Resuscitation Status - Order Detail: 01/10/19 13:28 Resuscitation Status Routine Resuscitation Status: FULL: Full Resuscitation Discussed with: patient ARMANDO Reviewed: Yes Vital Signs & Weight: Vital Signs (12 hours) Temp Pulse Resp BP BP Pulse Ox 01/12/19 08:51 97.3 F L 88 18 153/86 H 100 01/12/19 08:00 100 01/12/19 05:00 98.2 F 82 18 157/82 H 100 01/12/19 01:00 97.5 F L 88 20 148/72 H 90 L Weight Weight 178 lb 12.8 oz I&O: 01/11/19 01/12/19 01/13/19 06:59 06:59 06:59 Intake Total 1340 Balance 1340 Result Diagrams: 01/12/19 03:53 01/12/19 03:53 Additional Labs: Accuchecks 01/12/19 01/12/19 01/11/19 11:08 05:53 20:29 POC Glucose 255 H 249 H 352 H 01/11/19 01/11/19 15:47 12:10 POC Glucose 413 H 316 H Labs reviewed by me Phys Exam - Physical Examination Constitutional: NAD HEENT: moist MMs Neck: supple Respiratory: clear to auscultation bilateral Cardiovascular: RRR Gastrointestinal: soft Musculoskeletal: edema present Neurological: moves all 4 limbs Psychiatric: normal affect Dx/Plan (1) B-cell lymphoma Code(s): C85.10 - UNSPECIFIED B-CELL LYMPHOMA, UNSPECIFIED SITE Status: Chronic Comment: pt receiving chemotherapy (2) DM2 (diabetes mellitus, type 2) Status: Chronic Comment: controlled (3) HLD (hyperlipidemia) Code(s): E78.5 - HYPERLIPIDEMIA, UNSPECIFIED Status: Chronic Comment: on statin (4) HTN (hypertension) Code(s): I10 - ESSENTIAL (PRIMARY) HYPERTENSION Status: Chronic Comment: controlled - Plan * . Pt is receiving furosemide for edema, will add albumin infusion Review of Systems - Review of Systems Cardiovascular: edema. negative: chest pain, palpitations, orthopnea, paroxysmal nocturnal dyspnea, light headedness Gastrointestinal: negative: Nausea, Vomiting, Abdominal Pain, Diarrhea, Constipation, Melena, Hematochezia - Medications/Allergies Allergies/Adverse Reactions: Allergies Allergy/AdvReac Type Severity Reaction Status Date / Time Penicillins Allergy Severe DIFFICULTY Verified 12/12/18 12:04 BREATHING Medications: Current Medications Albumin Human (Albumin 25%) 25 gm IVPB DAILY [facility] Stop: 01/14/19 09:01 Allopurinol (Zyloprim) 100 mg PO QAM [facility] Last Admin: 01/12/19 09:04 Dose: 100 mg Aspirin (Ecotrin) 325 mg PO DAILY [facility] Last Admin: 01/12/19 09:06 Dose: 325 mg Atorvastatin Calcium (Lipitor) 20 mg PO HS [facility] Last Admin: 01/11/19 20:29 Dose: 20 mg Calcium Carbonate (Tums) 1,000 mg PO Q4H PRN PRN Reason: Heartburn or Indigestion Carvedilol (Coreg) 25 mg PO BID [facility] Last Admin: 01/12/19 09:06 Dose: 25 mg Dextrose/Water (Dextrose 50%) 25 gm SLOW IVP PRN PRN PRN Reason: Hypoglycemia Doxycycline Hyclate (Vibramycin) 100 mg PO BID [facility] Stop: 01/13/19 00:01 Last Admin: 01/12/19 10:12 Dose: 100 mg Doxycycline Hyclate (Vibramycin) 100 mg PO DAILY [facility] Finasteride (Proscar) 5 mg PO HS [facility] Last Admin: 01/11/19 20:29 Dose: 5 mg Furosemide (Lasix) 20 mg PO PRN PRN PRN Reason: Edema Last Admin: 01/12/19 01:17 Dose: 20 mg Furosemide (Lasix) 40 mg PO DAILY [facility] Last Admin: 01/12/19 09:05 Dose: 40 mg Glucagon (Glucagon) 1 mg IM PRN PRN PRN Reason: Hypoglycemia Guaifenesin/Dextromethorphan (Robitussin Dm) 10 ml PO Q6H PRN PRN Reason: Cough Last Admin: 01/12/19 01:17 Dose: 10 ml Heparin Sodium (Porcine) (Heparin) 5,000 units SC TID [facility] Last Admin: 01/12/19 09:08 Dose: 5,000 units Etoposide 75 mg/ Sodium (Chloride) 503.75 mls @ 503.75 mls/hr IVPB [facility] Stop: 01/13/19 23:00 Last Admin: 01/11/19 15:19 Dose: 503.75 mls Dextrose/Water (D5w) 1,000 mls @ 0 mls/hr IV .Q0M PRN PRN Reason: Hypoglycemia Cyclophosphamide 1 gm/Cyclophosphamide 190 mg/Sodium Chloride 559.5 mls @ 559.5 mls/hr IVPB [facility] Stop: 01/14/19 23:59 Ondansetron HCl 8 mg/ Sodium (Chloride) 54 mls @ 200 mls/hr IVPB Q6H PRN PRN Reason: Nausea Doxorubicin HCl 16 mg/Vincristine Sulfate 0.8 mg/Sodium Chloride 258.8 mls @ 10.783 mls/hr IVPB [facility] Stop: 01/14/19 12:16 Insulin Human Lispro (Humalog) 0 units SC .MILD SLIDING SCALE PRN PRN Reason: Mild Correctional Scale Last Admin: 01/12/19 12:11 Dose: 4 unit Ondansetron HCl (Zofran Odt) 4 mg PO Q6H PRN PRN Reason: Nausea/Vomiting Palonosetron (Aloxi) 0.25 mg IVP [facility] Stop: 01/14/19 23:00 Pegfilgrastim-jmdb (Fulphila) 6 mg SQ [facility] Stop: 01/16/19 06:01 Prednisone (Prednisone) 100 mg PO QAM-WM [facility] Stop: 01/15/19 10:00 Last Admin: 01/12/19 09:05 Dose: 100 mg Prednisone (Prednisone) 20 mg PO QAM-WM [facility] Stop: 01/15/19 10:00 Last Admin: 01/12/19 09:05 Dose: 20 mg Senna/Docusate Sodium (Senokot S) 2 tab PO BID PRN PRN Reason: Constipation Trimethoprim/Sulfamethoxazole (Bactrim Ds) 1 tab PO WeFr [facility] Stop: 01/14/19 09:01 Last Admin: 01/12/19 09:04 Dose: 1 tab
[2019-01-12] MEDS: Albumin 25% 25 GM/100 ML BOT IVPB SCH (14:21)
[2019-01-12] MEDS: Atorvastatin Calcium 20 MG TAB PO SCH (20:53)
[2019-01-12] MEDS: Finasteride 5 MG TAB PO SCH (20:53)
[2019-01-12] MEDS: ETOPOSIDE IVPB SCH (20:59)
[2019-01-12] MEDS: SODIUM CHLORIDE 0.9% IVPB SCH ×2 (20:59→22:30)
[2019-01-12] MEDS: Ondansetron ODT 4 MG TAB PO PRN (21:16)
[2019-01-12] MEDS: VINCRISTINE SULFATE IVPB SCH (22:30)
[2019-01-12] MEDS: DOXORUBICIN IVPB SCH (22:30)
[2019-01-13] MEDS: Guaifenesin DM 100-10/5 ML UDCUP PO PRN ×2 (02:02→09:28)
[2019-01-13 06:37] LABS: #Lymphocytes 0.5 thou/uL (1.20-3.40); #Monocytes 0.5 thou/uL (0.11-0.59); #Neutrophils 6.1 thou/uL (1.40-6.50); %Eosinophils 0.2 % (0.0-10.0); %Lymphocytes 6.7 % (21.0-51.0); %Monocytes 6.5 % (0.0-10.0); %Neutrophils 86.6 % (42.0-75.0); Hemoglobin 7.9 g/dL (14.0-18.0); Mean Corpuscular HGB CONC 32.6 g/dL (32.0-36.0); Mean Corpuscular Hemoglobin 31.3 pg (27.0-31.0); Mean Platelet Volume 6.8 fL (7.4-10.4); Platelet Count 370 thou/uL (130-400); RBC Distribution Width 15.5 % (11.5-14.5); Red Blood Cell (RBC) Count 2.53 mill/uL (4.70-6.10)
[2019-01-13 06:59] LABS: Phosphorus 4.6 mg/dL (2.3-4.7)
[2019-01-13 07:00] LABS: Anion Gap 13 mmol/L (10-20); BUN (Urea Nitrogen) 44 mg/dL (8.4-25.7); Calc. Creatinine Clearance 25 mL/min (70-130); Calcium 7.4 mg/dL (7.8-10.44); Carbon Dioxide 19 mmol/L (23-31); Chloride 111 mmol/L (98-107); Estimated GFR-MDRD 20; Glucose 207 mg/dL (80-115); Potassium 4.5 mmol/L (3.5-5.1); Sodium 138 mmol/L (136-145)
[2019-01-13] MEDS: HumaLOG 300 UNITS/3 ML VIAL SC PRN ×4 (07:16→20:23)
[2019-01-13] MEDS: Heparin 5,000 UNITS/ML VIAL SC SCH ×3 (08:26→20:24)
[2019-01-13] MEDS: Aspirin 325 mg Enteric Coated Tablet PO SCH (08:27)
[2019-01-13] MEDS: Allopurinol 100 MG TAB PO SCH (08:27)
[2019-01-13] MEDS: predniSONE 50 MG TAB PO SCH (08:27)
[2019-01-13] MEDS: predniSONE 20 MG TAB PO SCH (08:27)
[2019-01-13] MEDS: Furosemide 20 MG TAB PO SCH (08:27)
[2019-01-13] MEDS: Carvedilol 25 MG TAB PO SCH ×2 (08:27→20:24)
[2019-01-13] MEDS: Albumin 25% 25 GM/100 ML BOT IVPB SCH (08:28)
--- NOTE | 2019-01-13 08:32 | PDOC.PN ---
- Subjective Encounter Start Date: 01/13/19 Encounter Start Time: 08:20 Subjective: 68 y/o male with chronic bilateral leg edema, CAD s/p CABG, CKD stage 4 -: and others admitted for second cycle of chemo for B cell lymphoma. -: C/o of SOB and wheezing last night. swelling is worse also. - Objective Resuscitation Status - Order Detail: 01/10/19 13:28 Resuscitation Status Routine Resuscitation Status: FULL: Full Resuscitation Discussed with: patient Vital Signs & Weight: Vital Signs (12 hours) Temp Pulse Resp BP Pulse Ox 01/13/19 07:32 87 20 95 01/13/19 03:00 97.6 F 85 16 151/82 H 95 01/12/19 23:24 98.0 F 67 16 143/91 H 97 Weight Weight 178 lb 12.8 oz I&O: 01/12/19 01/13/19 01/14/19 06:59 06:59 06:59 Intake Total 1340 1152 Balance 1340 1152 Result Diagrams: 01/13/19 06:14 01/13/19 06:14 Additional Labs: Accuchecks 01/13/19 01/12/19 01/12/19 05:56 20:22 16:34 POC Glucose 247 H 405 H 327 H 01/12/19 11:08 POC Glucose 255 H Phys Exam - Physical Examination HEENT: PERRLA, moist MMs Conjunctival pallor Neck: supple, full ROM Respiratory: no wheezing Decreased air both bases with some crackles Cardiovascular: RRR, no significant murmur, no rub Gastrointestinal: soft, non-tender, no distention, positive bowel sounds marked bilateral leg edema as well as moderate right limb and trace left upper limb edema Neurological: non-focal, moves all 4 limbs Psychiatric: normal affect, A&O x 3 Dx/Plan (1) Leg swelling Code(s): M79.89 - OTHER SPECIFIED SOFT TISSUE DISORDERS Status: Chronic Comment: Worsening. Concerning for fluid overload. ? CHF exacerbation. (2) B-cell lymphoma Code(s): C85.10 - UNSPECIFIED B-CELL LYMPHOMA, UNSPECIFIED SITE Status: Chronic Comment: pt receiving chemotherapy (3) Anemia Code(s): D64.9 - ANEMIA, UNSPECIFIED Status: Chronic Qualifiers: Anemia type: bone marrow failure Bone marrow failure anemia type: unspecified bone marrow failure Qualified Code(s): D61.9 - Aplastic anemia, unspecified (4) Chronic kidney disease, stage 4 (severe) Code(s): N18.4 - CHRONIC KIDNEY DISEASE, STAGE 4 (SEVERE) Status: Chronic Comment: stable, present on admission (5) Diabetes mellitus Code(s): E11.9 - TYPE 2 DIABETES MELLITUS WITHOUT COMPLICATIONS Status: Acute (6) HTN (hypertension) Code(s): I10 - ESSENTIAL (PRIMARY) HYPERTENSION Status: Chronic Comment: controlled - Plan Increase lasix to 80 bid given CKD stage 4 and worsening swelling. -: Monitor Renal function, LDH and uric acid. -: Start bronchodilators. -: Get BNP and troponin given history of pleuritic chest pain and SOB. -: Analgesic as needed. Continue other treatments. * .
[2019-01-13] MEDS: Furosemide 80 MG TAB PO SCH ×2 (08:38→14:57)
[2019-01-13] MEDS ORDERED: Acetaminophen 325 MG/10.15 ML UDCUP PO PRN (08:45)
[2019-01-13] MEDS ORDERED: Furosemide 20 MG TAB PO SCH ×2 (09:00)
[2019-01-13 09:26] LABS: Troponin I 0.026 ng/mL (< 0.028)
[2019-01-13] MEDS: Doxycycline 100 MG CAP PO SCH (09:27)
[2019-01-13] MEDS: Atorvastatin Calcium 20 MG TAB PO SCH (20:25)
[2019-01-13] MEDS: Finasteride 5 MG TAB PO SCH (20:28)
[2019-01-13] MEDS: ETOPOSIDE IVPB SCH (21:28)
[2019-01-13] MEDS: SODIUM CHLORIDE 0.9% IVPB SCH ×2 (21:28→22:31)
[2019-01-13] MEDS: Ondansetron ODT 4 MG TAB PO PRN (21:28)
[2019-01-13] MEDS: DOXORUBICIN IVPB SCH (22:31)
[2019-01-13] MEDS: VINCRISTINE SULFATE IVPB SCH (22:31)
[2019-01-14 04:28] LABS: #Lymphocytes 0.4 thou/uL (1.20-3.40); #Monocytes 0.2 thou/uL (0.11-0.59); #Neutrophils 4.9 thou/uL (1.40-6.50); %Eosinophils 0.2 % (0.0-10.0); %Lymphocytes 7.7 % (21.0-51.0); %Monocytes 3.1 % (0.0-10.0); %Neutrophils 89.1 % (42.0-75.0); Hemoglobin 7.9 g/dL (14.0-18.0); Mean Corpuscular HGB CONC 32.6 g/dL (32.0-36.0); Mean Corpuscular Hemoglobin 30.8 pg (27.0-31.0); Mean Corpuscular Volume 94.6 fL (78.0-98.0); Mean Platelet Volume 6.7 fL (7.4-10.4); Platelet Count 333 thou/uL (130-400); RBC Distribution Width 15.2 % (11.5-14.5); Red Blood Cell (RBC) Count 2.55 mill/uL (4.70-6.10); White Blood Cell (WBC) Count 5.5 thou/uL (4.8-10.8)
[2019-01-14 04:46] LABS: Anion Gap 13 mmol/L (10-20); BUN (Urea Nitrogen) 54 mg/dL (8.4-25.7); Calc. Creatinine Clearance 63 mL/min (70-130); Calcium 7.5 mg/dL (7.8-10.44); Carbon Dioxide 20 mmol/L (23-31); Chloride 109 mmol/L (98-107); Estimated GFR-MDRD 19; Glucose 203 mg/dL (80-115); Potassium 4.4 mmol/L (3.5-5.1); Sodium 138 mmol/L (136-145)
[2019-01-14 04:48] LABS: Phosphorus 4.8 mg/dL (2.3-4.7); Uric Acid 6.7 mg/dL (3.5-7.2)
[2019-01-14] MEDS ORDERED: hydrALAZINE 20 MG/ML VIAL SLOW IVP PRN (05:07)
[2019-01-14] MEDS ORDERED: CYCLOPHOSPHAMIDE IVPB SCH ×2 (06:00→08:00)
[2019-01-14] MEDS ORDERED: SODIUM CHLORIDE 0.9% IVPB SCH ×2 (06:00→08:00)
[2019-01-14] MEDS: HumaLOG 300 UNITS/3 ML VIAL SC PRN ×4 (07:39→22:17)
[2019-01-14] MEDS ORDERED: PALONOSETRON HCL 0.05 MG/ML 5 ML VIAL IVP SCH (08:00)
--- NOTE | 2019-01-14 08:19 | PDOC.PN ---
- Subjective Encounter Start Date: 01/14/19 (n) Encounter Start Time: 08:17 Subjective: Admitted for 2nd cycle of chemotherapy for B lymphoma. has had SOB last 2 -: night associated with orthopnea. Now on oxygen syupplementation. - Objective Resuscitation Status - Order Detail: 01/10/19 13:28 Resuscitation Status Routine Resuscitation Status: FULL: Full Resuscitation Discussed with: patient Vital Signs & Weight: Vital Signs (12 hours) Temp Pulse Resp BP BP BP Pulse Ox 01/14/19 08:00 97.5 F L 96 18 183/95 H 93 L 01/14/19 05:24 20 167/98 H 94 L 01/14/19 05:11 89 20 94 L 01/14/19 05:10 84 180/103 H 01/14/19 04:55 98.4 F 84 20 180/103 H 94 L 01/14/19 00:00 96.8 F L 87 20 179/82 H 95 Weight Weight 201 lb 2 oz I&O: 01/13/19 01/14/19 01/15/19 06:59 06:59 06:59 Intake Total 1152 1044.4 Balance 1152 1044.4 Result Diagrams: 01/14/19 04:20 01/14/19 04:20 Additional Labs: Accuchecks 01/13/19 01/13/19 01/13/19 19:38 17:08 10:46 POC Glucose 478 H 401 H 210 H Phys Exam - Physical Examination HEENT: PERRLA, moist MMs Neck: supple, full ROM Decreased air entry both bases. Cardiovascular: RRR, no rub Gastrointestinal: soft, no distention, positive bowel sounds moderate to severe bilateral leg edema Neurological: non-focal, moves all 4 limbs Psychiatric: normal affect, A&O x 3 Dx/Plan (1) Leg swelling Code(s): M79.89 - OTHER SPECIFIED SOFT TISSUE DISORDERS Status: Chronic Comment: Due to CHF exacerbation. (2) B-cell lymphoma Code(s): C85.10 - UNSPECIFIED B-CELL LYMPHOMA, UNSPECIFIED SITE Status: Chronic Comment: pt receiving chemotherapy (3) Anemia Code(s): D64.9 - ANEMIA, UNSPECIFIED Status: Chronic Qualifiers: Anemia type: bone marrow failure Bone marrow failure anemia type: unspecified bone marrow failure Qualified Code(s): D61.9 - Aplastic anemia, unspecified (4) Chronic kidney disease, stage 4 (severe) Code(s): N18.4 - CHRONIC KIDNEY DISEASE, STAGE 4 (SEVERE) Status: Chronic Comment: stable, present on admission (5) Diabetes mellitus Code(s): E11.9 - TYPE 2 DIABETES MELLITUS WITHOUT COMPLICATIONS Status: Acute (6) HTN (hypertension) Code(s): I10 - ESSENTIAL (PRIMARY) HYPERTENSION Status: Chronic Comment: Control inadequate (7) Acute on chronic combined systolic and diastolic congestive heart failure Code(s): I50.43 - ACUTE ON CHRONIC COMBINED SYSTOLIC AND DIASTOLIC HRT FAIL Status: Acute Comment: Due to fluid overload and chemotherapy in a patient with advanced CKD. (8) Acute respiratory failure with hypoxia Code(s): J96.01 - ACUTE RESPIRATORY FAILURE WITH HYPOXIA Status: Acute Comment: Due to acute on chronic CHF and fluid overload. - Plan metolazone to lasix. patient wt has increased from 178 on admission to 201 -: Add sodium bicarb. Continue oxygen supplementation and prn nebs. -: Elevate both lower limbs -: Consult Nephrology -: Monitor renal function * .
[2019-01-14] MEDS: predniSONE 20 MG TAB PO SCH (09:17)
[2019-01-14] MEDS: predniSONE 50 MG TAB PO SCH (09:17)
[2019-01-14] MEDS: Allopurinol 100 MG TAB PO SCH (09:17)
[2019-01-14] MEDS: Aspirin 325 mg Enteric Coated Tablet PO SCH (09:18)
[2019-01-14] MEDS: Carvedilol 25 MG TAB PO SCH ×2 (09:18→21:35)
[2019-01-14] MEDS: Amlodipine 5 MG TAB PO SCH (09:18)
[2019-01-14] MEDS: Doxycycline 100 MG CAP PO SCH (09:19)
[2019-01-14] MEDS: Furosemide 80 MG TAB PO SCH ×2 (09:19→13:55)
[2019-01-14] MEDS: Heparin 5,000 UNITS/ML VIAL SC SCH ×3 (09:19→21:35)
[2019-01-14] MEDS: Sulfameth/Trimethoprim DS 800-160mg TAB PO SCH (09:19)
[2019-01-14] MEDS: Metolazone 2.5 MG TAB PO SCH (09:23)
[2019-01-14] MEDS: Sodium Bicarbonate Tab 325 MG TAB PO SCH ×2 (09:23→21:35)
--- NOTE | 2019-01-14 09:52 | CON ---
DATE OF CONSULTATION: REASON FOR CONSULTATION: Acute kidney injury and history of chronic kidney disease. HISTORY OF PRESENT ILLNESS: This is a very pleasant 68-year-old gentleman, who presented to the hospital with lymphoma. The patient's baseline creatinine was in the 2s and it increased to 3. The patient denies any nausea, vomiting, or chest pain. PAST MEDICAL HISTORY: Significant for diffuse large cell lymphoma, diabetes mellitus, hypertension, hyperlipidemia, CKD, history of CABG, vitrectomy, retinal detachment, cholecystectomy, sphincterectomy, gallstone extraction. FAMILY HISTORY: Negative for ESRD. ALLERGIES: REVIEWED. HOME MEDICATIONS: List reviewed. REVIEW OF SYSTEMS: 15-point review of system was performed, negative except for what was noted above. NECK: No swelling or lumps. NOSE: No epistaxis or discharge. EYES: No diplopia or pain. MUSCULOSKELETAL: No joint pain. NEUROPSYCHIATRIC SYSTEMS: No suicidal ideation. No ideation. SKIN: Denies any rash or ulcer. CONSTITUTIONAL: No fever or chills. PHYSICAL EXAMINATION: GENERAL: The patient is awake and alert. VITAL SIGNS: Afebrile, pulse 76, breathing 16, blood pressure 167/98. GENERAL APPEARANCE AND MENTAL STATUS: Fair. HEAD/NECK: Normocephalic. Atraumatic. EYES: EOMI. No deformity. EARS: Clear. No ulcers. NOSE: Intact. No lesions. MOUTH: Clear. No discharge. THROAT: Clear. No exudate. LUNGS: Clear. No crackles. CARDIAC: S1, S2. No rub. ABDOMEN: Benign. Bowel sounds positive. GENITALIA/RECTUM: Connor absent. BACK/EXTREMITIES: Edema 0+. NEUROLOGICAL: Alert and motor intact. LABORATORY DATA: Labs show creatinine of 3.2. ASSESSMENT: 1. Acute kidney injury, chronic kidney disease, most likely because of lymphoma involvement. Continue with hydration. No indication for dialysis. 2. Hypertension, stable. 3. Anemia, stable. 4. Medication based on GFR appropriate. 5. I would recommend renal imaging to show there is no hydronephrosis. Job ID: [id number]
--- NOTE | 2019-01-14 12:40 | ULT ---
ULTRASOUND RENAL BILATERAL STANDARD: HISTORY: Acute kidney injury. COMPARISON: MRI from 11/14/2018. TECHNIQUE: Real-time, barajas scale, and color evaluation of the kidneys was performed. FINDINGS: The right kidney measures 9.9 x 5.3 x 4.4 cm. The left kidney measures 10 x 5.5 x 5 cm. Renal cysts are similar to the MRI examination from 11/11/2018. No renal mass or obstruction. The urinary bladder is distended. IMPRESSION: No evidence for obstructive uropathy. Bilateral renal cysts. POS: [facility]
[2019-01-14] MEDS: Senokot S 8.6-50 MG TAB PO PRN (18:09)
[2019-01-14] MEDS: Finasteride 5 MG TAB PO SCH (21:35)
[2019-01-14] MEDS: Atorvastatin Calcium 20 MG TAB PO SCH (21:35)
[2019-01-15 04:37] LABS: #Lymphocytes 0.2 thou/uL (1.20-3.40); #Neutrophils 3.3 thou/uL (1.40-6.50); %Eosinophils 0.2 % (0.0-10.0); %Lymphocytes 6.4 % (21.0-51.0); %Monocytes 0.8 % (0.0-10.0); %Neutrophils 92.5 % (42.0-75.0); Hemoglobin 7.2 g/dL (14.0-18.0); Mean Corpuscular HGB CONC 34.1 g/dL (32.0-36.0); Mean Corpuscular Hemoglobin 31.9 pg (27.0-31.0); Mean Corpuscular Volume 93.7 fL (78.0-98.0); Mean Platelet Volume 6.7 fL (7.4-10.4); Platelet Count 217 thou/uL (130-400); RBC Distribution Width 15.2 % (11.5-14.5); Red Blood Cell (RBC) Count 2.25 mill/uL (4.70-6.10); White Blood Cell (WBC) Count 3.5 thou/uL (4.8-10.8)
[2019-01-15 04:57] LABS: Anion Gap 15 mmol/L (10-20); BUN (Urea Nitrogen) 61 mg/dL (8.4-25.7); Calc. Creatinine Clearance 26 mL/min (70-130); Calcium 7.2 mg/dL (7.8-10.44); Carbon Dioxide 18 mmol/L (23-31); Chloride 109 mmol/L (98-107); Estimated GFR-MDRD 18; Glucose 215 mg/dL (80-115); Sodium 138 mmol/L (136-145)
[2019-01-15 04:59] LABS: Phosphorus 5.5 mg/dL (2.3-4.7); Uric Acid 7.6 mg/dL (3.5-7.2)
[2019-01-15] MEDS: HumaLOG 300 UNITS/3 ML VIAL SC PRN ×3 (05:57→21:28)
[2019-01-15] MEDS ORDERED: PEGFILGRASTIM-JMDB 6 MG/0.6 ML SYRINGE SQ SCH (06:00)
[2019-01-15] MEDS: Aspirin 325 mg Enteric Coated Tablet PO SCH (08:44)
[2019-01-15] MEDS: Furosemide 80 MG TAB PO SCH ×2 (08:44→13:48)
[2019-01-15] MEDS: Allopurinol 100 MG TAB PO SCH (08:44)
[2019-01-15] MEDS: Amlodipine 5 MG TAB PO SCH (08:44)
[2019-01-15] MEDS: Sodium Bicarbonate Tab 325 MG TAB PO SCH ×2 (08:44→21:29)
[2019-01-15] MEDS: Carvedilol 25 MG TAB PO SCH ×2 (08:44→21:28)
[2019-01-15] MEDS: predniSONE 50 MG TAB PO SCH (08:45)
[2019-01-15] MEDS: predniSONE 20 MG TAB PO SCH (08:46)
[2019-01-15] MEDS: Heparin 5,000 UNITS/ML VIAL SC SCH ×3 (08:47→21:28)
[2019-01-15] MEDS: Doxycycline 100 MG CAP PO SCH (08:47)
[2019-01-15] MEDS: Metolazone 2.5 MG TAB PO SCH (08:48)
--- NOTE | 2019-01-15 11:06 | PDOC.PN ---
- Subjective Encounter Start Date: 01/15/19 Encounter Start Time: 11:04 Subjective: Admitted for 2nd cycle of Chemotherapy for B cell lymphoma. -: Developed acute respiratory failure from CHF exacerbation. Feeling better. -: swelling improving with diuresis. - Objective Resuscitation Status - Order Detail: 01/10/19 13:28 Resuscitation Status Routine Resuscitation Status: FULL: Full Resuscitation Discussed with: patient Vital Signs & Weight: Vital Signs (12 hours) Temp Pulse Resp BP BP BP Pulse Ox 01/15/19 08:44 80 01/15/19 08:25 97.6 F 85 18 167/94 H 96 01/15/19 04:00 97.7 F 80 16 147/81 H 97 01/15/19 00:00 97.5 F L 78 20 132/68 98 Weight Weight 201 lb 2 oz I&O: 01/14/19 01/15/19 01/16/19 06:59 06:59 06:59 Intake Total 1044.4 1893.4 Balance 1044.4 1893.4 Result Diagrams: 01/15/19 04:26 01/15/19 04:26 Additional Labs: Accuchecks 01/14/19 01/14/19 01/14/19 21:52 16:49 11:53 POC Glucose 338 H 298 H 194 H Phys Exam - Physical Examination HEENT: PERRLA, moist MMs, sclera anicteric Neck: supple, full ROM fair air entry bilaterally. No obvious crackles or rhonchi Cardiovascular: RRR, no rub Gastrointestinal: soft, non-tender, no distention, positive bowel sounds Moderate bilateral edema Neurological: non-focal, normal sensation, moves all 4 limbs Psychiatric: normal affect, A&O x 3 Dx/Plan (1) Leg swelling Code(s): M79.89 - OTHER SPECIFIED SOFT TISSUE DISORDERS Status: Chronic Comment: Due to CHF exacerbation. (2) B-cell lymphoma Code(s): C85.10 - UNSPECIFIED B-CELL LYMPHOMA, UNSPECIFIED SITE Status: Chronic Comment: pt receiving chemotherapy (3) Anemia Code(s): D64.9 - ANEMIA, UNSPECIFIED Status: Chronic Qualifiers: Anemia type: bone marrow failure Bone marrow failure anemia type: unspecified bone marrow failure Qualified Code(s): D61.9 - Aplastic anemia, unspecified (4) Chronic kidney disease, stage 4 (severe) Code(s): N18.4 - CHRONIC KIDNEY DISEASE, STAGE 4 (SEVERE) Status: Chronic Comment: stable, present on admission (5) Diabetes mellitus Code(s): E11.9 - TYPE 2 DIABETES MELLITUS WITHOUT COMPLICATIONS Status: Acute (6) HTN (hypertension) Code(s): I10 - ESSENTIAL (PRIMARY) HYPERTENSION Status: Chronic Comment: Control inadequate (7) Acute on chronic combined systolic and diastolic congestive heart failure Code(s): I50.43 - ACUTE ON CHRONIC COMBINED SYSTOLIC AND DIASTOLIC HRT FAIL Status: Acute Comment: Due to fluid overload and chemotherapy in a patient with advanced CKD. (8) Acute respiratory failure with hypoxia Code(s): J96.01 - ACUTE RESPIRATORY FAILURE WITH HYPOXIA Status: Acute Comment: Due to acute on chronic CHF and fluid overload. - Plan Wean off oxygen as tolerated. -: Continue lasix and metolazone. -: defer decision about transfuion to [facility] -: Appreciate Nephrology input. -: Increase activity. Monitor BP with a view to increasing amlodipine dose * .
--- NOTE | 2019-01-15 12:54 | PRG ---
DATE OF SERVICE: 01/15/2019 SUBJECTIVE: A 68-year-old gentleman is being seen for acute kidney injury. The patient denies nausea, vomiting or chest pain. OBJECTIVE: GENERAL: The patient is awake and alert. VITAL SIGNS: Afebrile, pulse 80, breathing 16, blood pressure 147/81. GENERAL APPEARANCE AND MENTAL STATUS: Fair. HEAD/NECK: Normocephalic and atraumatic. EYES: EOMI. No deformity. EARS: Clear. No ulcers. NOSE: Intact. No lesions. MOUTH: Clear. No discharge. THROAT: Clear. No exudate. LUNGS: Clear. No crackles. CARDIAC: S1 and S2. No rub. ABDOMEN: Benign. Bowel sounds positive. GENITALIA/RECTUM: Connor absent. BACK/EXTREMITIES: Edema 0+. NEUROLOGICAL: Alert and motor intact. LABORATORY DATA: Hemoglobin 7.2. Creatinine 3.3. ASSESSMENT: 1. Acute kidney injury on chronic kidney disease, stage 4, stable. 2. Hypertension, stable. 3. Metabolic acidosis, stable. 4. Anemia. We would recommend transfusion. 5. Hyperphosphatemia. We would recommend Renvela 2 pills with every meals. Job ID: [id number]
[2019-01-15] MEDS: Calcium Carbonate 500 MG ChewTAB PO SCH (17:00)
[2019-01-15] MEDS: Finasteride 5 MG TAB PO SCH (21:28)
[2019-01-15] MEDS: Atorvastatin Calcium 20 MG TAB PO SCH (21:29)
[2019-01-16] MEDS: HumaLOG 300 UNITS/3 ML VIAL SC PRN ×3 (05:55→20:19)
[2019-01-16] MEDS: Acetaminophen 650 MG/20.3 ML UDCUP PO PRN (06:27)
[2019-01-16 06:30] LABS: Anion Gap 14 mmol/L (10-20); BUN (Urea Nitrogen) 69 mg/dL (8.4-25.7); Calc. Creatinine Clearance 26 mL/min (70-130); Calcium 7.7 mg/dL (7.8-10.44); Carbon Dioxide 23 mmol/L (23-31); Chloride 106 mmol/L (98-107); Estimated GFR-MDRD 18; Glucose 180 mg/dL (80-115); Potassium 3.9 mmol/L (3.5-5.1); Sodium 139 mmol/L (136-145)
[2019-01-16 08:12] LABS: Band 10 % (5-11); Eosinophils 1 % (0-10); Hemoglobin 7.4 g/dL (14.0-18.0); Lymphocytes 5 % (21-51); MDiff Complete? YES; Mean Corpuscular HGB CONC 33.9 g/dL (32.0-36.0); Mean Corpuscular Hemoglobin 31.5 pg (27.0-31.0); Mean Corpuscular Volume 92.7 fL (78.0-98.0); Mean Platelet Volume 6.9 fL (7.4-10.4); Neutrophil 84 % (42-75); Platelet Count 229 thou/uL (130-400); RBC Distribution Width 15.2 % (11.5-14.5); Red Blood Cell (RBC) Count 2.35 mill/uL (4.70-6.10); White Blood Cell (WBC) Count 19.1 thou/uL (4.8-10.8)
[2019-01-16] MEDS: Calcium Carbonate 500 MG ChewTAB PO SCH ×3 (09:43→17:50)
[2019-01-16] MEDS: Allopurinol 100 MG TAB PO SCH (09:44)
[2019-01-16] MEDS: Amlodipine 5 MG TAB PO SCH (09:44)
[2019-01-16] MEDS: Furosemide 80 MG TAB PO SCH ×2 (09:45→13:54)
[2019-01-16] MEDS: Aspirin 325 mg Enteric Coated Tablet PO SCH (09:45)
[2019-01-16] MEDS: Metolazone 2.5 MG TAB PO SCH (09:45)
[2019-01-16] MEDS: Heparin 5,000 UNITS/ML VIAL SC SCH ×3 (09:45→20:19)
[2019-01-16] MEDS: Carvedilol 25 MG TAB PO SCH ×2 (09:45→20:19)
[2019-01-16] MEDS: Sodium Bicarbonate Tab 325 MG TAB PO SCH ×2 (09:46→20:19)
[2019-01-16] MEDS: Senokot S 8.6-50 MG TAB PO PRN (09:46)
[2019-01-16] MEDS: Doxycycline 100 MG CAP PO SCH (09:46)
--- NOTE | 2019-01-16 13:08 | PRG ---
DATE OF SERVICE: 01/16/2019 SUBJECTIVE: A 68-year-old gentleman being seen for acute kidney injury. The patient denies nausea, vomiting, or chest pain. OBJECTIVE: See above. Awake, alert, in no acute distress. VITAL SIGNS: Afebrile, pulse 82, breathing 16, blood pressure 154/84. GENERAL APPEARANCE AND MENTAL STATUS: Fair. HEAD/NECK: Normocephalic. Atraumatic. EYES: EOMI. No deformity. EARS: Clear. No ulcers. NOSE: Intact. No lesions. MOUTH: Clear. No discharge. THROAT: Clear. No exudate. LUNGS: Clear. No crackles. CARDIAC: S1, S2. No rub. ABDOMEN: Benign. Bowel sounds positive. GENITALIA/RECTUM: Connor absent. BACK/EXTREMITIES: Edema 0+. NEUROLOGICAL: Alert and motor intact. SKIN: LYMPHATICS: LABORATORY DATA: Labs shows creatinine is 3.4. ASSESSMENT: 1. Acute kidney injury on chronic kidney disease, stable. 2. Hypertension, stable. 3. Anemia. I would recommend transfusion due to multiple comorbidities. 4. Hypocalcemia and hyperphosphatemia, on Tums. Medication based on GFR. I would recommend stopping doxycycline and taking it with different class of antibiotic as this can cause elevated creatinine. Job ID: [id number]
--- NOTE | 2019-01-16 13:14 | PRG ---
DATE OF SERVICE: 01/16/2019 SUBJECTIVE: The patient is seen and examined at bedside. His is present in the room during my visit. He feels significantly better. He noticed significantly increased amount of urine he makes since he was admitted to the hospital. His appetite is fair. He had bowel movement this morning. OBJECTIVE: VITAL SIGNS: Blood pressure is 154/84, pulse is 82, respiratory rate is 18, O2 saturation is 98%, temperature is 98.1. HEENT: His head is atraumatic and normocephalic. Eyes; PERRLA, sclerae nonicteric. Oral mucosa is moist. NECK: Supple. LUNGS: Breath sounds somewhat diminished at both bases. HEART: S1, S2, normal. No S3. No S4. ABDOMEN: Soft, nontender, somewhat obese. EXTREMITIES: 3+ peripheral edema similar bilaterally on both lower extremities. LABORATORY DATA: Labs showed white count of 19.1, hemoglobin 7.4, hematocrit 21.8, platelet count 229,000. Chemistry showed normal electrolytes, BUN of 69, creatinine 3.43, glucose 180, glycemia is ranging from 141-479, calcium 7.7. IMPRESSION: 1. B-cell lymphoma status post chemotherapy. 2. Acute on chronic combined systolic and diastolic congestive heart failure with left ventricular ejection fraction of around 30% to 35%. 3. Acute respiratory failure with hypoxia secondary to above. 4. Hypertension. 5. Diabetes mellitus, uncontrolled. 6. Chronic kidney disease stage 4, worsened post chemo. 7. Anemia. 8. Peripheral edema. PLAN: Continue his diuresis with Lasix and metolazone. We will transfuse him with 1 unit of packed red blood cells. Tomorrow, he will be evaluated by the rehab and most likely we can transfer him to the rehab if he is accepted in the next 24 to 48 hours. Job ID: [id number]
[2019-01-16] MEDS: Finasteride 5 MG TAB PO SCH (20:19)
[2019-01-16] MEDS: Atorvastatin Calcium 20 MG TAB PO SCH (20:19)
[2019-01-17] MEDS: Acetaminophen 650 MG/20.3 ML UDCUP PO PRN ×2 (01:38→08:41)
[2019-01-17] MEDS: Allopurinol 100 MG TAB PO SCH (08:37)
[2019-01-17] MEDS: Calcium Carbonate 500 MG ChewTAB PO SCH ×2 (08:37→12:03)
[2019-01-17] MEDS: Amlodipine 5 MG TAB PO SCH (08:37)
[2019-01-17] MEDS: Carvedilol 25 MG TAB PO SCH (08:38)
[2019-01-17] MEDS: Heparin 5,000 UNITS/ML VIAL SC SCH ×2 (08:38→13:56)
[2019-01-17] MEDS: Furosemide 80 MG TAB PO SCH ×2 (08:38→13:56)
[2019-01-17] MEDS: Aspirin 325 mg Enteric Coated Tablet PO SCH (08:38)
[2019-01-17] MEDS: Sodium Bicarbonate Tab 325 MG TAB PO SCH (08:39)
[2019-01-17] MEDS: Metolazone 2.5 MG TAB PO SCH (08:39)
[2019-01-17] MEDS ORDERED: Amlodipine 5 MG TAB PO SCH (09:15)
--- NOTE | 2019-01-17 09:24 | PRG ---
DATE OF SERVICE: 01/17/2019 SUBJECTIVE: The patient feels well and has no complaints. Eating well. Would like to go home. He had initially contemplated rehab but feels like he would be better served going home and having home rehab or even outpatient rehab as he started being in the hospital. His legs are still swollen, but he states they are half the size that they were earlier in the week. OBJECTIVE: Temperature 97.4, T-max 100.0, pulse 95, respirations 18, he is 94% on 1 L nasal cannula. BP is 162/89. GENERAL APPEARANCE: Age-appropriate male. He is in no distress. He is sitting up without oxygen on. He is quite comfortable and is not tachypneic. HEART: Regular rate and rhythm without murmurs, gallops, or rubs. LUNGS: Clear to auscultation bilaterally. ABDOMEN: Benign. EXTREMITIES: Reveal persistent 2 to 3+ pitting edema up to the level of the knee. SKIN: Otherwise, warm and dry. LABORATORY DATA: New results, blood sugars ranging from 141 to 250. IMPRESSION AND PLAN: 1. Metastatic B-cell lymphoma, status post chemotherapy. 2. Acute on chronic systolic congestive heart failure with an EF of 30% to 35%. The patient continues to have a significant amount of fluid retention, likely secondary to hydration with chemotherapy, heart failure, and renal dysfunction. He has been diuresing effectively. Will need to go home on a higher dose of the Lasix at discharge. 3. Acute respiratory failure with hypoxia secondary to heart failure. The patient appears to be improving. Looks comfortable presently without oxygen. We will need to follow up on his saturations. 4. Diabetes mellitus, adequate control. 5. Hypertension, not adequately controlled. We will increase his Norvasc from 5 mg to 10. 6. Chronic kidney disease stage 4, seems to be about where he was starting in October with his overall BUN and creatinine levels. 7. Anemia. He is status post transfusion yesterday. We will recheck his levels today. 8. Peripheral edema secondary to heart failure, renal disease, and hydration, it is improving. Continue with the diuresis. 9. Disposition. The patient was initially considering inpatient rehab, at this point, would like to consider home therapy. We will consult Case Management to help him with that. Job ID: [id number]
[2019-01-17 09:29] LABS: Hemoglobin 9.4 g/dL (14.0-18.0); Mean Corpuscular HGB CONC 33.3 g/dL (32.0-36.0); Mean Corpuscular Hemoglobin 30.5 pg (27.0-31.0); Mean Corpuscular Volume 91.8 fL (78.0-98.0); Mean Platelet Volume 7.1 fL (7.4-10.4); Platelet Count 198 thou/uL (130-400); RBC Distribution Width 15.1 % (11.5-14.5); Red Blood Cell (RBC) Count 3.08 mill/uL (4.70-6.10); White Blood Cell (WBC) Count 23.8 thou/uL (4.8-10.8)
[2019-01-17 09:58] LABS: Band 17 % (5-11); Eosinophils 1 % (0-10); MDiff Complete? YES; Neutrophil 81 % (42-75); Platelet Morphology Comment Appears Adequate; Reactive Lymphocytes 1 % (0-10); Vacuoles SLIGHT
[2019-01-17] MEDS: Doxycycline 100 MG CAP PO SCH (10:13)
--- NOTE | 2019-01-17 10:54 | PRG ---
DATE OF SERVICE: 01/17/2019 SUBJECTIVE: Patient was seen and examined at bedside and overnight events noted. Patient denies any shortness of breath or chest pain or palpitation. No history of nausea or vomiting or diarrhea or fever or chills or cramps. OBJECTIVE: GENERAL: This is a well-built male, in no acute distress. VITAL SIGNS: Temperature 98.2. Heart rate 91. Respiratory rate 18. Blood pressure 178/98. HEENT: Atraumatic, normocephalic. Oral mucosa is moist NECK: Supple. CARDIOVASCULAR: S1, S2 heard. Rate and rhythm regular. RESPIRATORY: Clear to auscultation. GASTROINTESTINAL: Abdomen is soft. MUSCULOSKELETAL: No tenderness. No edema. DERMATOLOGIC: No skin rash. NEUROLOGIC: Alert and awake and oriented X3. No focal neurologic deficits. Moving all the extremities. PSYCHIATRIC: Mood and affect normal. LABORATORY DATA: Not done today. ASSESSMENT AND PLAN: 1. Acute kidney injury on chronic kidney disease, stage 4, renal function seems to be stable. 2. Edema, controlled. 3. Hypertension. 4. Anemia. 5. . Recommended to follow up with Dr. Noland in 1 to 2 weeks. No indication for dialysis. Avoid nephrotoxins. We will follow. Job ID: [id number]
[2019-01-17] MEDS: HumaLOG 300 UNITS/3 ML VIAL SC PRN (12:02)
[2019-01-17 12:16] VITALS: BP 131/69; TEMP 97.8
[2019-01-17] MEDS ORDERED: Sulfameth/Trimethoprim DS 800-160mg TAB PO SCH (14:00)
== END 2019-01-17 14:49 | DRG 846 ==
LOC: ONC 09:25 → UNDOADMIN 09:25 → ONC 12:23
PROVIDERS: ADMIT Internal Medicine Nephrology; ATTEND Internal Medicine
PROC: 3E03305 Introduction of Other Antineoplastic into Peripheral Vein, Percutaneous Approach (ICD-10-PCS; principal; 2019-01-10)
PROC: 30233N1 Transfusion of Nonautologous Red Blood Cells into Peripheral Vein, Percutaneous Approach (ICD-10-PCS; 2019-01-16)
DX: Z51.11 Encounter for antineoplastic chemotherapy (principal); I50.23 Acute on chronic systolic (congestive) heart failure; J96.01 Acute respiratory failure with hypoxia; N17.9 Acute kidney failure, unspecified; N18.4 Chronic kidney disease, stage 4 (severe); I13.0 Hypertensive heart and chronic kidney disease with heart failure and stage 1 through stage 4 chronic kidney disease, or unspecified chronic kidney disease; E87.2 Acidosis; C83.30 Diffuse large B-cell lymphoma, unspecified site; C79.51 Secondary malignant neoplasm of bone; D61.9 Aplastic anemia, unspecified; E11.22 Type 2 diabetes mellitus with diabetic chronic kidney disease; E83.39 Other disorders of phosphorus metabolism; E83.51 Hypocalcemia; E78.5 Hyperlipidemia, unspecified; I25.10 Atherosclerotic heart disease of native coronary artery without angina pectoris; Z95.1 Presence of aortocoronary bypass graft; Z80.8 Family history of malignant neoplasm of other organs or systems; Z88.0 Allergy status to penicillin; Z79.899 Other long term (current) drug therapy; Z79.82 Long term (current) use of aspirin; Z91.81 History of falling
CPT/HCPCS: 36415; 36416; 36430; 71045; 76770; 80048; 80053; 82248; 83615; 83880; 84100; 84484; 84550; 85025; 86850; 86900; 86901; 93306; 94640; J0360; J1100; J1200; J1642; J1644; J2469; J7050; J7620; J9070; J9181; J9312; J9370; P9016; P9047; Q0162; Q2050; Q5108; S0028

== ENCOUNTER 2019-01-24 11:13 | Day surgery (SDC) | payer MEDICARE, OTHER ==
[2019-01-24] MEDS ORDERED: Acetaminophen 500 MG TAB PO SCH (11:45)
[2019-01-24] MEDS ORDERED: Furosemide 40 MG/4 ML VIAL SLOW IVP SCH (11:45)
[2019-01-24] MEDS ORDERED: diphenhydrAMINE 25 MG CAP PO SCH (11:45)
[2019-01-24 15:11] LABS: Hemoglobin 7.7 g/dL (14.0-18.0)
[2019-01-24 18:04] VITALS: BP 150/70; TEMP 98.4
== END 2019-01-24 18:03 | disposition home or self-care (01) ==
LOC: ONC/OP 11:13
PROVIDERS: ATTEND Internal Medicine Hematology & Oncology
PROC: 30233N1 Transfusion of Nonautologous Red Blood Cells into Peripheral Vein, Percutaneous Approach (ICD-10-PCS; principal; 2019-01-24)
DX: D64.9 Anemia, unspecified (principal); D69.6 Thrombocytopenia, unspecified
CPT/HCPCS: 36415; 36430; 80053; 82248; 83615; 84100; 84550; 85014; 85018; 86850; 86900; 86901; J1940; P9016; Q0163

== ENCOUNTER 2019-02-28 08:20 | Day surgery (SDC) | payer MEDICARE, OTHER ==
[~2019-02-28 08:20] MED LIST changes: +Acetaminophen 500 MG TAB PO PRN; +CYCLOPHOSPHAMIDE IVPB SCH; +DEXAMETHASONE IVPB SCH; +DEXAMETHASONE SOD PHOSPHATE IVPB SCH; +GEMZAR IVPB SCH; +ONDANSETRON HCL IVPB SCH; -Prevnar 13-Val Conj/PF 0.5 ML SYRINGE IM ONE; +Rituximab 500 MG, Rituximab 200 MG in Sodium Chloride 0.9% 500 ML IVPB SCH; +SODIUM CHLORIDE 0.9% IVPB SCH; +[UNRECOGNIZED DRUG - OTHER] IVPB SCH; +diphenhydrAMINE 25 MG in Sodium Chloride 0.9% 50 ML IVPB SCH; +vinCRIStine Sulfate 2 MG in Sodium Chloride 0.9% 50 ML IVPB SCH
[2019-02-28] MEDS ORDERED: Sodium Chloride 0.9% 20 ML ONE (08:28)
[2019-02-28 09:28] VITALS: TEMP 97.6
[2019-02-28 15:31] VITALS: BP 163/79
== END 2019-02-28 15:31 | disposition home or self-care (01) ==
LOC: ONC/OP 08:20
PROVIDERS: ATTEND Internal Medicine Hematology & Oncology
DX: Z51.11 Encounter for antineoplastic chemotherapy (principal); C83.39 Diffuse large B-cell lymphoma, extranodal and solid organ sites; Z88.0 Allergy status to penicillin
CPT/HCPCS: 96375; 96411; 96413; 96415; 96417; J1100; J1200; J1642; J2405; J7050; J9070; J9201; J9310; J9312; J9370

== ENCOUNTER 2019-03-07 08:46 | Day surgery (SDC) | payer MEDICARE, OTHER ==
[~2019-03-07 08:46] MED LIST changes: -Acetaminophen 500 MG TAB PO PRN; -CYCLOPHOSPHAMIDE IVPB SCH; -DEXAMETHASONE IVPB SCH; -DEXAMETHASONE SOD PHOSPHATE IVPB SCH; -ONDANSETRON HCL IVPB SCH; +Ondansetron 2MG/ML MDV 10 MG in Sodium Chloride 0.9% 50 ML IVPB SCH; -Rituximab 500 MG, Rituximab 200 MG in Sodium Chloride 0.9% 500 ML IVPB SCH; -[UNRECOGNIZED DRUG - OTHER] IVPB SCH; -diphenhydrAMINE 25 MG in Sodium Chloride 0.9% 50 ML IVPB SCH; -vinCRIStine Sulfate 2 MG in Sodium Chloride 0.9% 50 ML IVPB SCH
[2019-03-07] MEDS ORDERED: Sodium Chloride 0.9% 20 ML ONE (09:21)
[2019-03-07 14:40] VITALS: BP 99/53; TEMP 97.8
== END 2019-03-07 14:40 | disposition home or self-care (01) ==
LOC: ONC/OP 08:46
PROVIDERS: ATTEND Internal Medicine Hematology & Oncology
DX: Z51.11 Encounter for antineoplastic chemotherapy (principal); C83.39 Diffuse large B-cell lymphoma, extranodal and solid organ sites; I12.9 Hypertensive chronic kidney disease with stage 1 through stage 4 chronic kidney disease, or unspecified chronic kidney disease; E11.22 Type 2 diabetes mellitus with diabetic chronic kidney disease; N18.4 Chronic kidney disease, stage 4 (severe); E78.5 Hyperlipidemia, unspecified; I25.10 Atherosclerotic heart disease of native coronary artery without angina pectoris; Z95.5 Presence of coronary angioplasty implant and graft; Z95.1 Presence of aortocoronary bypass graft; Z90.49 Acquired absence of other specified parts of digestive tract; Z87.891 Personal history of nicotine dependence; Z88.0 Allergy status to penicillin; Z79.82 Long term (current) use of aspirin; Z79.4 Long term (current) use of insulin; Z79.2 Long term (current) use of antibiotics; Z79.52 Long term (current) use of systemic steroids; Z79.899 Other long term (current) drug therapy; Z98.890 Other specified postprocedural states
CPT/HCPCS: 96375; 96413; J1642; J2405; J7050; J9201

== ENCOUNTER 2019-03-07 18:17 | Inpatient (IN) | payer MEDICARE, OTHER ==
--- NOTE | 2019-03-07 18:48 | RAD ---
PORTABLE CHEST 1 VIEW 03/07/2019 at 6:35 PM HISTORY: Chest pain. COMPARISON: 01/11/2019 FINDINGS: Changes of median sternotomy are again seen. The right-sided Port-A-Cath remains in place. The heart size is enlarged. There is a mild infiltrate in the right lung base medially. No pneumothoraces or la rge effusions are identified. IMPRESSION: Findings are suggestive of right-sided pneumonia.
[2019-03-07 19:18] LABS: #Lymphocytes 0.2 thou/uL (1.20-3.40); #Neutrophils 2.4 thou/uL (1.40-6.50); %Eosinophils 1.8 % (0.0-10.0); %Lymphocytes 8.5 % (21.0-51.0); %Monocytes 0.1 % (0.0-10.0); %Neutrophils 89.7 % (42.0-75.0); Mean Corpuscular HGB CONC 33.6 g/dL (32.0-36.0); Mean Corpuscular Hemoglobin 33.2 pg (27.0-31.0); Mean Corpuscular Volume 98.9 fL (78.0-98.0); Mean Platelet Volume 7.3 fL (7.4-10.4); Platelet Count 86 thou/uL (130-400); Red Blood Cell (RBC) Count 2.41 mill/uL (4.70-6.10); White Blood Cell (WBC) Count 2.7 thou/uL (4.8-10.8)
[2019-03-07 19:28] LABS: MDiff Complete? YES; Ovalocytes SLIGHT = 2-5 cells (100X) (0-1/hpf); Platelet Morphology Comment Appears Decreased; Polychromasia SLIGHT = 2-3 cells (100X) (0-2/hpf)
[2019-03-07 19:45] LABS: ALT (SGPT) 14 U/L (8-55); AST (SGOT) 11 U/L (5-34); Albumin 2.8 g/dL (3.4-4.8); Alkaline Phosphatase 80 U/L (40-150); Anion Gap 11 mmol/L (10-20); BUN (Urea Nitrogen) 70 mg/dL (8.4-25.7); Bilirubin, Total 0.4 mg/dL (0.2-1.2); CK (CPK) 101 U/L (30-200); Calc. Creatinine Clearance 0 mL/min (70-130); Calcium 8.3 mg/dL (7.8-10.44); Carbon Dioxide 23 mmol/L (23-31); Chloride 107 mmol/L (98-107); Estimated GFR-MDRD 17; Globulin 1.8 g/dL (2.4-3.5); Glucose 245 mg/dL (80-115); Lipase 66 U/L (8-78); Potassium 4.5 mmol/L (3.5-5.1); Protein, Total 4.6 g/dL (5.8-8.1); Sodium 136 mmol/L (136-145)
[2019-03-07 20:02] LABS: CKMB 4.2 ng/mL (0-6.6)
[2019-03-07] MEDS ORDERED: Piperacillin/Tazobactam 4.5 GM VIAL ONE (20:20)
[2019-03-07] MEDS ORDERED: Ondansetron PF 4 MG/2 ML Vial ONE (20:20)
[2019-03-07] MEDS ORDERED: Vancomycin HCl 1.5 GM in Sodium Chloride 0.9% 250 ML 300 ML IVPB SCH (20:45)
[2019-03-07] MEDS ORDERED: Ondansetron PF 4 MG/2 ML Vial IVP PRN ×2 (21:26→21:55)
[2019-03-07] MEDS ORDERED: Ondansetron ODT 4 MG TAB SL PRN (21:26)
[2019-03-07] MEDS ORDERED: Acetaminophen 325 MG TAB PO PRN ×2 (21:26→21:55)
[2019-03-07] MEDS ORDERED: HYDROcodone/Acetaminophen 7.5/325 mg Tablet PO PRN (21:54)
[2019-03-07] MEDS ORDERED: Loratadine 10 MG TAB PO PRN (21:55)
[2019-03-07] MEDS ORDERED: Diabetic Tussin 200 MG/10 ML UDCUP PO PRN (21:55)
[2019-03-07] MEDS ORDERED: Cepastat Lozenges 1 LOZ PO PRN (21:55)
[2019-03-07] MEDS ORDERED: Eucerin (Mineral Oil/Petrolatum,White) 30 gm Jar TOP PRN (21:55)
[2019-03-07] MEDS ORDERED: Artificial Tears 18 DROP/0.9 ML EA EYE PRN (21:55)
[2019-03-07] MEDS ORDERED: Zolpidem Tartrate 5 MG TAB PO PRN (21:55)
[2019-03-07] MEDS ORDERED: Bisacodyl 10 MG SUPP PR PRN (21:55)
[2019-03-07] MEDS ORDERED: Loperamide HCl 2 MG CAP PO PRN (21:55)
[2019-03-07] MEDS ORDERED: hydrALAZINE 20 MG/ML VIAL SLOW IVP PRN (21:55)
[2019-03-07] MEDS ORDERED: Sodium Chloride 0.65% Nasal 44 ML BOT EA NARE PRN (21:55)
[2019-03-07] MEDS ORDERED: Senokot S 8.6-50 MG TAB PO PRN (21:55)
[2019-03-07] MEDS ORDERED: Calcium Carbonate 500 MG ChewTAB PO PRN (21:55)
[2019-03-07] MEDS ORDERED: Dextrose 50% Abboject 50 ML SYRINGE SLOW IVP PRN (21:57)
[2019-03-07] MEDS ORDERED: Dextrose 5% in Water 1,000 ML IV PRN (21:57)
[2019-03-07] MEDS: HYDROcodone/Acetaminophen 7.5/325 mg Tablet PO PRN (22:12)
[2019-03-07 22:17] LABS: Troponin I 0.053 ng/mL (< 0.028)
[2019-03-07 23:03] VITALS: BMI 24.3
[2019-03-07 23:09] LABS: Bilirubin Negative (Negative); Blood, Urine Small (Negative); Clarity CLEAR (Clear); Glucose, Urine (Dipstick) 250 mg/dL (Negative); Leukocyte Negative (Negative); Nitrite Negative (Negative); Protein, Urine (Dipstick) 300 mg/dL (Neg-Trace); Specific Gravity, Urine 1.013 (1.002-1.036); Urobilinogen 0.2 mg/dL (0.2-1.0)
[2019-03-07 23:11] LABS: Bacteria/HPF None Seen HPF (None Seen); Hyaline Casts/LPF 0-3 HYALINE CAST LPF (0-3 Hyaline); RBC/HPF 0-3 HPF (0-3); Squamous Epithelial 0-3 HPF (0-3); WBC/HPF 0-3 HPF (0-3)
--- NOTE | 2019-03-08 00:13 | HP ---
PRIMARY CARE PHYSICIAN: Tatianna Reid MD REASON FOR ADMISSION: Pneumonia. HISTORY OF PRESENT ILLNESS: A 68-year-old male, who has underlying history of lymphoma and he is getting chemotherapy. Earlier today in the morning time, he had chemotherapy. After chemotherapy, he went to home. Subsequently, the patient was feeling weak. He was having cough for last few days, but he was attributing to be due to allergic symptoms. He did not have any fever or chills at home. After chemotherapy, in the afternoon time, the patient was feeling much weaker. He took a nap and he was still feeling exhausted, and he started having chest pain, entire chest, associated with cough and shortness of breath, and weakness and that is why the patient's brought him to emergency room. In the emergency room, the patient had a chest x-ray, which showed right-sided pneumonia. The patient received antibiotic therapy in the emergency room and subsequently, he was admitted to telemetry floor. The patient denies any flu-like illness. He denies any UTI symptoms. He denies any constipation, diarrhea, melena, or hematochezia. He denies any headache, body ache, recent travel, or sick exposure. ALLERGIES: PENICILLIN. CURRENT HOME MEDICATION: 1. Aspirin 81 mg daily. 2. Coreg 25 mg twice daily. 3. Proscar 5 mg daily. 4. Lipitor 20 mg daily. 5. Amlodipine 2.5 mg at bedtime. 6. Lantus insulin 15 units in the morning and 5 units at bedtime. 7. Protonix 20 mg p.o. daily. 8. Zofran p.r.n. basis. 9. [place] 1 tab p.r.n. basis. 10. Allopurinol 100 mg twice daily. 11. Prednisone daily. PAST MEDICAL HISTORY: Diabetes type 2, on insulin; coronary artery disease, required CABG as well as stent; hypertension, dyslipidemia, CKD stage 4, lymphoma stage IV. PAST SURGICAL HISTORY: CABG x4, left eye surgery, right eye surgery for retinal detachment, cholecystectomy, MediPort placement. PAST PSYCHIATRIC HISTORY: Reviewed and negative. SOCIAL HISTORY: The patient is , lives at home with his . No history of tobacco, alcohol, or illicit drug abuse. FAMILY HISTORY: No family history of CAD, CVA or cancer. EMERGENCY ROOM COURSE: The patient received vancomycin, Zosyn, IV fluid, and Zofran. REVIEW OF SYSTEMS: CONSTITUTIONAL: Negative for weight loss or gain, ability to conduct usual activities. SKIN: Negative for rash, itching. EYES: Negative for double vision, pain. ENT/MOUTH: Negative for nose bleeding, neck stiffness, pain, tenderness. CARDIOVASCULAR: Negative for palpitations, dyspnea on exertion, orthopnea. RESPIRATORY: Negative for shortness of breath, wheezing, cough, hemoptysis, fever or night sweats. GASTROINTESTINAL: Negative for poor appetite, abdominal pain, heartburn, nausea , vomiting, constipation, or diarrhea. GENITOURINARY: Negative for urgency, frequency, dysuria, nocturia. MUSCULOSKELETAL: Negative for pain, swelling. NEUROLOGIC/PSYCHIATRIC: Negative for anxiety, depression. ALLERGY/IMMUNOLOGIC: Negative for skin rash, bleeding tendency. Please see my HPI for pertinent positive and negative. All other review of systems reviewed and negative except as mentioned in HPI. PHYSICAL EXAMINATION: VITAL SIGNS: On arrival, blood pressure 149/72, pulse 85, respiratory rate 20, temperature 98.7, saturation 99%. Weight 81.7 kg. GENERAL: The patient is currently alert, awake, appears weak, in no obvious acute distress. HEENT: Head; normocephalic, atraumatic. Eyes; pupils round, reactive to light. Extraocular muscle intact. ENT; oropharynx within normal limits. Moist mucous membranes. No oral lesion. No pharyngeal erythema. No exudate. NECK: Supple. No JVD. No thyromegaly. No carotid bruit. LUNGS: Right-sided rales noted. End-expiratory wheezing heard. No accessory muscles of respiration in use. CARDIAC: S1, S2 regular. No murmur. No gallop. No rub. ABDOMEN: Soft bowel sounds present. Nontender. Nondistended. No organomegaly. No mass. No suprapubic tenderness. BACK: Unremarkable. No CVA tenderness. EXTREMITIES: Upper extremity; passive movement of all joints are normal; lower extremity; no edema. Good distal pulsation. No calf tenderness. SKIN: No skin rash. HEMATOLOGICAL SYSTEM: No lymphadenopathy. NEUROLOGIC: Nonfocal examination. SIGNIFICANT LABORATORY DATA: Chest x-ray consistent with right-sided pneumonia. Reviewed by me. CBC; WBC 2.7, hemoglobin 8.0, platelet 86. BMP; sodium 136, potassium 4.5, chloride 107, carbon dioxide 23, BUN 70, creatinine 3.56, glucose 245, calcium 8.3. LFT; AST 11, ALT 14, alkaline phosphatase 80, albumin 2.8. CK-MB 4.2, troponin 0.067 and then 0.053. BNP 1123. Lactic acid 1.0. Lipase 66. Urinalysis unremarkable. EKG showing nonspecific ST-T changes in the lateral lead. ASSESSMENT AND PLAN: IMPRESSION: 1. Right-sided community-acquired pneumonia, likely bacterial, suspecting streptococcal. The patient will be given broad-spectrum antibiotic therapy with vancomycin and levofloxacin, Mucinex 600 mg twice daily and DuoNeb therapy q.6 hourly p.r.n. 2. Pancytopenia, likely due to chemotherapy. We will monitor CBC while in hospital. Oncology will be consulted. 3. B-cell lymphoma, stage IV, on chemotherapy. Oncology will be consulted. The patient already had chemotherapy today. We will monitor CBC. 4. Chronic kidney disease stage 4. Monitor renal function. Avoid nephrotoxin agent. 5. Chronic systolic heart failure, stage C. Currently, the patient is euvolemic. We will avoid IV fluid because of congestive heart failure to prevent volume overload. 6. Chronically elevated troponin, likely due to renal insufficiency. 7. Dyslipidemia. After verification of his home dose, we will continue Lipitor 20 mg at bedtime. 8. Benign enlargement of prostate. We will continue Proscar as per home dosage. 9. Hyperuricemia and gout. We will continue allopurinol as per home dosage. 10. Hypertension. We will continue amlodipine and Coreg as per home dosage. 11. Deep vein thrombosis prophylaxis, SCD boots only. We will avoid heparin product because of low platelet count. 12. Gastrointestinal prophylaxis, Pepcid 20 mg p.o. daily. CODE STATUS: The patient is full code and the patient's is surrogate decision maker. DISPOSITION PLAN: Based on clinical course. We are expecting the patient to stay in hospital more than 2 midnights. Plan of care discussed with the patient in detail. Job ID: [id number] [id number]
[2019-03-08 01:42] LABS: Troponin I 0.054 ng/mL (< 0.028)
[2019-03-08] MEDS: Ondansetron ODT 4 MG TAB PO PRN ×2 (06:29→12:11)
[2019-03-08 07:27] LABS: #Eosinphils 0.1 thou/uL (0.0-0.7); #Lymphocytes 0.3 thou/uL (1.20-3.40); #Neutrophils 3.9 thou/uL (1.40-6.50); %Eosinophils 1.4 % (0.0-10.0); %Lymphocytes 7.3 % (21.0-51.0); %Monocytes 0.3 % (0.0-10.0); Hemoglobin 8.4 g/dL (14.0-18.0); Mean Corpuscular Hemoglobin 33.4 pg (27.0-31.0); Mean Corpuscular Volume 98.1 fL (78.0-98.0); Mean Platelet Volume 7.6 fL (7.4-10.4); Platelet Count 91 thou/uL (130-400); Red Blood Cell (RBC) Count 2.51 mill/uL (4.70-6.10); White Blood Cell (WBC) Count 4.3 thou/uL (4.8-10.8)
[2019-03-08 07:35] LABS: ALT (SGPT) 14 U/L (8-55); AST (SGOT) 11 U/L (5-34); Albumin 2.8 g/dL (3.4-4.8); Alkaline Phosphatase 75 U/L (40-150); Anion Gap 13 mmol/L (10-20); BUN (Urea Nitrogen) 64 mg/dL (8.4-25.7); Bilirubin, Total 0.5 mg/dL (0.2-1.2); Calc. Creatinine Clearance 22 mL/min (70-130); Calcium 8.3 mg/dL (7.8-10.44); Carbon Dioxide 22 mmol/L (23-31); Chloride 109 mmol/L (98-107); Estimated GFR-MDRD 18; Glucose 157 mg/dL (80-115); Potassium 4.5 mmol/L (3.5-5.1); Protein, Total 4.8 g/dL (5.8-8.1); Sodium 139 mmol/L (136-145)
[2019-03-08] MEDS ORDERED: PEGFILGRASTIM-JMDB 6 MG/0.6 ML SYRINGE SQ SCH (08:00)
[2019-03-08] MEDS: Famotidine 20 MG TAB PO SCH (08:59)
[2019-03-08] MEDS: HYDROcodone/Acetaminophen 7.5/325 mg Tablet PO PRN (08:59)
[2019-03-08] MEDS: Saccharomyces boulardii 250 MG CAP PO SCH (08:59)
[2019-03-08] MEDS ORDERED: Albuterol Sulfate HFA (OR ONLY) ONE (10:22)
[2019-03-08] MEDS: HumaLOG 300 UNITS/3 ML VIAL SC PRN ×3 (11:25→21:15)
[2019-03-08] MEDS ORDERED: Ondansetron PF 4 MG/2 ML Vial IVP PRN (12:24)
[2019-03-08] MEDS ORDERED: Furosemide 40 MG TAB PO SCH (12:30)
--- NOTE | 2019-03-08 14:50 | PDOC.PN ---
- Subjective Encounter Start Date: 03/08/19 Encounter Start Time: 14:48 Subjective: feels well and breathing easier. -: RN reported later that he vomited. -: at bedside and reports that he looks better than yesterday - Objective Resuscitation Status - Order Detail: 03/07/19 21:55 Resuscitation Status Routine Resuscitation Status: FULL: Full Resuscitation MAR Reviewed: Yes Vital Signs & Weight: Vital Signs (12 hours) Temp Pulse Resp BP BP BP Pulse Ox 03/08/19 11:21 97.6 F 87 13 145/67 H 98 03/08/19 08:58 98.6 F 90 17 142/68 H 98 03/08/19 04:40 98.1 F 84 16 125/63 96 Weight Admit Weight 169 lb 4.8 oz Weight 169 lb 4.8 oz I&O: 03/07/19 03/08/19 03/09/19 06:59 06:59 06:59 Intake Total 180 Output Total 700 Balance -520 Result Diagrams: 03/08/19 06:52 03/08/19 06:52 Additional Labs: Accuchecks 03/08/19 03/08/19 03/07/19 10:35 06:05 22:24 POC Glucose 217 H 183 H 223 H Microbiology 03/07/19 20:16 Venous blood - Right Hand Blood Culture - Preliminary Specimen has been received and culture in progress. No Growth to date. 03/07/19 20:16 Venous blood - Right Arm Blood Culture - Preliminary Specimen has been received and culture in progress. No Growth to date. Laboratory Tests 01/13/19 03/07/19 03/07/19 06:14 08:46 19:02 Creatinine 3.45 H 3.56 H Troponin I B-Natriuretic Peptide 3645.4 H 03/07/19 03/07/19 03/07/19 19:02 19:02 21:38 Creatinine Troponin I 0.067 H 0.053 H B-Natriuretic Peptide 1123.0 H 03/08/19 03/08/19 01:11 06:52 Creatinine 3.41 H Troponin I 0.054 H B-Natriuretic Peptide Phys Exam - Physical Examination Constitutional: NAD HEENT: PERRLA, moist MMs, sclera anicteric, oral pharynx no lesions Neck: no nodes, no JVD, supple, full ROM Respiratory: no wheezing, no rales, no rhonchi, clear to auscultation bilateral Cardiovascular: RRR, no significant murmur Gastrointestinal: soft, non-tender, no distention, positive bowel sounds Musculoskeletal: no edema, pulses present Neurological: non-focal, normal sensation, moves all 4 limbs Psychiatric: normal affect, A&O x 3 Skin: no rash Dx/Plan (1) PNA (pneumonia) Code(s): J18.9 - PNEUMONIA, UNSPECIFIED ORGANISM Status: Acute (2) Antineoplastic chemotherapy induced pancytopenia Code(s): D61.810 - ANTINEOPLASTIC CHEMOTHERAPY INDUCED PANCYTOPENIA; T45.1X5A - ADVERSE EFFECT OF ANTINEOPLASTIC AND IMMUNOSUP DRUGS, INIT Status: Acute (3) Chronic systolic CHF, NYHA class 2 and KHURRAM/AHA stage C Code(s): I50.22 - CHRONIC SYSTOLIC (CONGESTIVE) HEART FAILURE Status: Chronic Comment: last ECHO 01/18-EF 35-40% (4) Hx of CABG Status: Chronic (5) B-cell lymphoma Code(s): C85.10 - UNSPECIFIED B-CELL LYMPHOMA, UNSPECIFIED SITE Status: Chronic Comment: pt receiving chemotherapy (6) Chronic kidney disease, stage 4 (severe) Code(s): N18.4 - CHRONIC KIDNEY DISEASE, STAGE 4 (SEVERE) Status: Chronic Comment: stable, present on admission (7) DM2 (diabetes mellitus, type 2) Status: Chronic Comment: controlled (8) HLD (hyperlipidemia) Code(s): E78.5 - HYPERLIPIDEMIA, UNSPECIFIED Status: Chronic Comment: on statin (9) HTN (hypertension) Code(s): I10 - ESSENTIAL (PRIMARY) HYPERTENSION Status: Chronic Comment: Control inadequate (10) CAD (coronary artery disease) Code(s): I25.10 - ATHSCL HEART DISEASE OF [place] CORONARY ARTERY W/O ANG PCTRS Status: Chronic Comment: on ASA,statin,BB.No RADHA-I/ARB due to CKD (11) Bone metastases Code(s): C79.51 - SECONDARY MALIGNANT NEOPLASM OF BONE Status: Chronic (12) Diabetes mellitus Code(s): E11.9 - TYPE 2 DIABETES MELLITUS WITHOUT COMPLICATIONS Status: Chronic Qualifiers: Diabetes mellitus type: type 2 - Plan plan discussed w/ family, continue antibiotics, PT/OT, respiratory therapy, incentive spirometry, DVT proph w/lovenox, DVT proph w/SCDs retsrat home meds. cont Ab.follow Cx results -: no Ac CHF at this admission.HD stable -: repeat ECHO ordered.pt follows w Dr. peter in cardiology clinic. -: monitor CBC and renal FX.avoid nephrotoxins -: avoid bactrim w CKD.proably prophylaxis d/t chemo.will discuss w Nephro * . Review of Systems - Review of Systems Constitutional: weakness, malaise. negative: fever, chills, sweats, other Respiratory: negative: Cough, Dry, Shortness of Breath, Hemoptysis, SOB with Excertion, Pleuritic Pain, Sputum, Wheezing Cardiovascular: negative: chest pain, palpitations, orthopnea, paroxysmal nocturnal dyspnea, edema, light headedness, other Gastrointestinal: negative: Nausea, Vomiting, Abdominal Pain, Diarrhea, Constipation, Melena, Hematochezia, Other Genitourinary: negative: Dysuria, Frequency, Incontinence, Hematuria, Retention , Other Musculoskeletal: negative: Neck Pain, Shoulder Pain, Arm Pain, Back Pain, Hand Pain, Leg Pain, Foot Pain, Other Neurological: negative: Weakness, Numbness, Incoordination, Change in Speech, Confusion, Seizures, Other - Medications/Allergies Allergies/Adverse Reactions: Allergies Allergy/AdvReac Type Severity Reaction Status Date / Time Penicillins Allergy Severe DIFFICULTY Verified 12/12/18 12:04 BREATHING Medications: Current Medications Acetaminophen (Tylenol) 650 mg PO Q4H PRN PRN Reason: Headache/Fever/Mild Pain (1-3) Hydrocodone Bitart/Acetaminophen ([place] 7.5/325) 1 tab PO Q4H PRN PRN Reason: Mild Pain (1-3) Hydrocodone Bitart/Acetaminophen ([place] 7.5/325) 2 tab PO Q4H PRN PRN Reason: Moderate Pain (4-6) Last Admin: 03/08/19 08:59 Dose: 2 tab Albuterol/Ipratropium (Duoneb) 3 ml NEB [id number] PRN PRN Reason: SOB &/or Wheezing Artificial Tears (Tears Naturale) 2 drop EA EYE PRN PRN PRN Reason: Dry Eyes Bisacodyl (Dulcolax) 10 mg DC DAILYPRN PRN PRN Reason: Constipation Calcium Carbonate (Tums) 1,000 mg PO Q4H PRN PRN Reason: Heartburn or Indigestion Dextrose/Water (Dextrose 50%) 25 gm SLOW IVP PRN PRN PRN Reason: Hypoglycemia Famotidine (Pepcid) 20 mg PO DAILY [facility] Last Admin: 03/08/19 08:59 Dose: 20 mg Furosemide (Lasix) 40 mg PO DAILY [facility] Glucagon (Glucagon) 1 mg IM PRN PRN PRN Reason: Hypoglycemia Guaifenesin (Robitussin Sf) 200 mg PO Q4H PRN PRN Reason: Cough Hydralazine HCl (Apresoline) 10 mg SLOW IVP Q4H PRN PRN Reason: SBP > 180 and HR < 70 Levofloxacin 750 mg/ Device 150 mls @ 100 mls/hr IVPB Q2DAYS [facility] Last Admin: 03/08/19 00:38 Dose: 150 mls Dextrose/Water (D5w) 1,000 mls @ 0 mls/hr IV .Q0M PRN PRN Reason: Hypoglycemia Vancomycin HCl 1.5 gm/ Sodium (Chloride) 300 mls @ 200 mls/hr IVPB Q2DAYS [facility] Insulin Human Lispro (Humalog) 0 units SC .MODERATE SLIDING SC PRN PRN Reason: Moderate Correctional Scale Last Admin: 03/08/19 11:25 Dose: 4 units Insulin Human Lispro (Humalog) 0 units SC .BEDTIME SLIDING SC PRN PRN Reason: Bedtime Correctional Scale Loperamide HCl (Imodium) 2 mg PO PRN PRN PRN Reason: Diarrhea/Loose Stools Loratadine (Claritin) 10 mg PO DAILYPRN PRN PRN Reason: Sinus Symptoms Mineral Oil/White Petrolatum (Eucerin Cream) 0 gm TOP BIDPRN PRN PRN Reason: Dry Skin Miscellaneous Medication (Pharmacy To Dose) 1 each IVPB PRN PRN PRN Reason: Pharmacy to dose Ondansetron HCl (Zofran Odt) 4 mg PO Q6H PRN PRN Reason: Nausea/Vomiting Last Admin: 03/08/19 12:11 Dose: 4 mg Ondansetron HCl (Zofran) 4 mg IVP Q4H PRN PRN Reason: Nausea/Vomiting Pegfilgrastim-jmdb (Fulphila) 6 mg SQ NOW [facility] Stop: 03/08/19 21:00 Last Admin: 03/08/19 09:10 Dose: 6 mg Saccharomyces Boulardii (Florastor) 250 mg PO DAILY [facility] Last Admin: 03/08/19 08:59 Dose: 250 mg Senna/Docusate Sodium (Senokot S) 2 tab PO BID PRN PRN Reason: Constipation Sodium Chloride ([place] Nasal [place] 0.65%) 0 ml EA NARE QIDPRN PRN PRN Reason: Nasal Congestion Sodium Chloride (Flush - Normal Saline) 10 ml IVF Q12HR [facility] Last Admin: 03/08/19 09:03 Dose: 10 ml Sodium Chloride (Flush - Normal Saline) 10 ml IVF PRN PRN PRN Reason: Saline Flush Throat Lozenges (Cepastat Lozenges) 1 cayden PO Q2H PRN PRN Reason: Sore Throat Zolpidem Tartrate (Ambien) 5 mg PO HSPRN PRN PRN Reason: Insomnia
[2019-03-08] MEDS ORDERED: Calcium Carbonate 500 MG ChewTAB PO PRN (14:55)
[2019-03-08] MEDS ORDERED: predniSONE 50 MG TAB PO SCH (16:00)
[2019-03-08] MEDS: Carvedilol 25 MG TAB PO SCH (20:11)
[2019-03-08] MEDS: Finasteride 5 MG TAB PO SCH (20:11)
[2019-03-08] MEDS: Atorvastatin Calcium 20 MG TAB PO SCH (20:11)
[2019-03-08] MEDS: Allopurinol 100 MG TAB PO SCH (20:11)
[2019-03-08 21:10] LABS: Vancomycin, Random 11.6 ug/mL (See Comment)
[2019-03-08] MEDS ORDERED: Vancomycin HCl 750 MG in Sodium Chloride 0.9% 250 ML 250 ML IVPB SCH (21:30)
--- NOTE | 2019-03-09 01:20 | CON ---
DATE OF CONSULTATION: REASON FOR CONSULTATION: Lymphoma. HISTORY OF PRESENT ILLNESS: A 68-year-old male with history of stage IV diffuse large B-cell lymphoma, status post two cycles of dose adjusted EPOCH-R with worsening of baseline CHF and has subsequently been changed to Rituxan-GCVP and last received chemotherapy on March 07, 2019, that is on the day of admission. The patient states that he felt okay, getting chemotherapy and went home and then started chest pain and mild shortness of breath. He had a mild cough. He states that he came to the hospital for the chest pain. Since admission to the hospital, the patient feels much better and has minimal shortness of breath. The patient had a chest x-ray in the ER that showed a right lower lobe pneumonia. He was started on vancomycin and cefepime. The patient also had some nausea and vomiting, which is improved with medications. He is due for his Neulasta injection today. He denies any other symptoms and states that his lower extremity edema has improved. PAST MEDICAL HISTORY: Type 2 diabetes, coronary artery disease, status post CABG and PCI, hypertension, hyperlipidemia, CKD stage 4, diffuse large B-cell lymphoma. PAST SURGICAL HISTORY: CABG, left eye surgery, right eye surgery, cholecystectomy, and MediPort. SOCIAL HISTORY: , lives at home with his . No tobacco or alcohol. FAMILY HISTORY: No family history of cancer. REVIEW OF SYSTEMS: Ten-point review of systems is negative except as per HPI. PHYSICAL EXAMINATION: VITAL SIGNS: Temperature 98.6, pulse 90, respirations 17, saturating 98% on room air, blood pressure 142/68. GENERAL APPEARANCE: The patient is sitting up in bed, in no acute distress. HEENT: Normocephalic, atraumatic. LYMPHATIC: No palpable lymphadenopathy. CARDIOVASCULAR: S1 and S2. Regular rhythm and rate. LUNGS: Very minimal right-sided crackles, otherwise clear to auscultation bilaterally. ABDOMEN: Soft, nondistended, and nontender. NEUROLOGIC: Cranial nerves 2 through 12 were grossly intact. EXTREMITIES: Moves all extremities. Has 2+ edema in bilateral lower extremities. PSYCHIATRIC: He is awake, alert, and oriented x3. LABORATORY DATA: White blood cells 4.3, hemoglobin 8.4, platelets 91, neutrophils 91%. Sodium 139, potassium 4.5, chloride 109, carbon dioxide 22, BUN 64, creatinine 2.41, glucose 157, troponin 0.054. IMAGING DATA: Chest x-ray dated March 07, 2019 shows right-sided pneumonia. ASSESSMENT AND PLAN: A 68-year-old male with diffuse large B-cell lymphoma, currently on chemotherapy, presenting to the hospital with chest pain, mild shortness breath, and found to have a right-sided pneumonia. The patient has been started on vancomycin and cefepime and his symptoms have improved. He still has some mild chest pain. His troponins were negative. This could be related to the pneumonia. His congestive heart failure is stable and he appears euvolemic and actually improved from the last few weeks. His blood cytopenias are consistent with chemotherapy and he is currently not neutropenic. He is due for his Fulphila today. We will continue to follow the patient with you. Hopefully, he can be discharged in 24 to 48 hours. Thank you for this consult. Job ID: [id number] MTDD
[2019-03-09 04:58] LABS: Anion Gap 10 mmol/L (10-20); BUN (Urea Nitrogen) 64 mg/dL (8.4-25.7); Calc. Creatinine Clearance 21 mL/min (70-130); Calcium 8.6 mg/dL (7.8-10.44); Carbon Dioxide 22 mmol/L (23-31); Chloride 109 mmol/L (98-107); Estimated GFR-MDRD 17; Glucose 274 mg/dL (80-115); Potassium 4.4 mmol/L (3.5-5.1); Sodium 137 mmol/L (136-145)
[2019-03-09 05:01] LABS: Band 13 % (5-11); Hemoglobin 7.4 g/dL (14.0-18.0); Hypochromia SLIGHT = 6-15 cells (100X) (0-5/hpf); MDiff Complete? YES; Mean Corpuscular HGB CONC 34.2 g/dL (32.0-36.0); Mean Corpuscular Hemoglobin 34.1 pg (27.0-31.0); Mean Corpuscular Volume 99.8 fL (78.0-98.0); Mean Platelet Volume 8.1 fL (7.4-10.4); Neutrophil 87 % (42-75); Platelet Count 60 thou/uL (130-400); Platelet Morphology Comment Appears Decreased; Red Blood Cell (RBC) Count 2.18 mill/uL (4.70-6.10); White Blood Cell (WBC) Count 9.6 thou/uL (4.8-10.8)
[2019-03-09] MEDS ORDERED: Furosemide 40 MG TAB PO SCH (09:00)
[2019-03-09] MEDS: Aspirin 325 mg Enteric Coated Tablet PO SCH (09:04)
[2019-03-09] MEDS: Allopurinol 100 MG TAB PO SCH ×2 (09:04→20:54)
[2019-03-09] MEDS: Carvedilol 25 MG TAB PO SCH ×2 (09:04→20:54)
[2019-03-09] MEDS: Saccharomyces boulardii 250 MG CAP PO SCH (09:05)
[2019-03-09] MEDS: predniSONE 50 MG TAB PO SCH (09:05)
[2019-03-09] MEDS: Famotidine 20 MG TAB PO SCH (09:05)
[2019-03-09] MEDS: Furosemide 40 MG TAB PO SCH (09:05)
[2019-03-09] MEDS: HumaLOG 300 UNITS/3 ML VIAL SC PRN ×4 (09:06→21:03)
--- NOTE | 2019-03-09 14:26 | PDOC.PN ---
- Subjective Encounter Start Date: 03/09/19 Encounter Start Time: 14:24 Subjective: feels much better and wants to go home -: walking in hallways w PT w/o difficulty - Objective Resuscitation Status - Order Detail: 03/07/19 21:55 Resuscitation Status Routine Resuscitation Status: FULL: Full Resuscitation MAR Reviewed: Yes Vital Signs & Weight: Vital Signs (12 hours) Temp Pulse Resp BP BP BP Pulse Ox 03/09/19 11:32 97.6 F 86 16 121/66 98 03/09/19 07:34 98.8 F 87 21 H 136/87 100 03/09/19 04:20 98.1 F 91 16 114/61 97 Weight Admit Weight 169 lb 4.8 oz Weight 169 lb 4.8 oz I&O: 03/08/19 03/09/19 03/10/19 06:59 06:59 06:59 Intake Total 180 1680 Output Total 700 Balance -520 1680 Result Diagrams: 03/09/19 04:18 03/09/19 04:18 Additional Labs: Accuchecks 03/09/19 03/09/19 03/08/19 10:58 06:09 21:05 POC Glucose 327 H 306 H 375 H 03/08/19 16:37 POC Glucose 186 H Microbiology 03/07/19 Unknown Urine clean catch Urine Culture - Preliminary NO GROWTH AT 12 HOURS 03/07/19 20:16 Venous blood - Right Hand Blood Culture - Preliminary Specimen has been received and culture in progress. No Growth to date. 03/07/19 20:16 Venous blood - Right Hand Blood Culture - Preliminary NO GROWTH AT 48 HOURS 03/07/19 20:16 Venous blood - Right Arm Blood Culture - Preliminary Specimen has been received and culture in progress. No Growth to date. 03/07/19 20:16 Venous blood - Right Arm Blood Culture - Preliminary NO GROWTH AT 48 HOURS Phys Exam - Physical Examination Constitutional: NAD HEENT: PERRLA, moist MMs, sclera anicteric, oral pharynx no lesions Neck: no nodes, no JVD, supple, full ROM Respiratory: no wheezing, no rales, no rhonchi, clear to auscultation bilateral Cardiovascular: RRR, no significant murmur, no rub Gastrointestinal: soft, non-tender, no distention, positive bowel sounds Musculoskeletal: no edema, pulses present Neurological: non-focal, normal sensation, moves all 4 limbs Psychiatric: normal affect, A&O x 3 Skin: no rash Dx/Plan (1) PNA (pneumonia) Code(s): J18.9 - PNEUMONIA, UNSPECIFIED ORGANISM Status: Acute (2) Antineoplastic chemotherapy induced pancytopenia Code(s): D61.810 - ANTINEOPLASTIC CHEMOTHERAPY INDUCED PANCYTOPENIA; T45.1X5A - ADVERSE EFFECT OF ANTINEOPLASTIC AND IMMUNOSUP DRUGS, INIT Status: Acute (3) Chronic systolic CHF, NYHA class 2 and KHURRAM/AHA stage C Code(s): I50.22 - CHRONIC SYSTOLIC (CONGESTIVE) HEART FAILURE Status: Chronic Comment: last ECHO 01/18-EF 35-40% (4) Hx of CABG Status: Chronic (5) B-cell lymphoma Code(s): C85.10 - UNSPECIFIED B-CELL LYMPHOMA, UNSPECIFIED SITE Status: Chronic Comment: pt receiving chemotherapy (6) Chronic kidney disease, stage 4 (severe) Code(s): N18.4 - CHRONIC KIDNEY DISEASE, STAGE 4 (SEVERE) Status: Chronic Comment: stable, present on admission (7) DM2 (diabetes mellitus, type 2) Status: Chronic Comment: controlled (8) HLD (hyperlipidemia) Code(s): E78.5 - HYPERLIPIDEMIA, UNSPECIFIED Status: Chronic Comment: on statin (9) HTN (hypertension) Code(s): I10 - ESSENTIAL (PRIMARY) HYPERTENSION Status: Chronic Comment: Control inadequate (10) CAD (coronary artery disease) Code(s): I25.10 - ATHSCL HEART DISEASE OF [place] CORONARY ARTERY W/O ANG PCTRS Status: Chronic Comment: on ASA,statin,BB.No RADHA-I/ARB due to CKD (11) Bone metastases Code(s): C79.51 - SECONDARY MALIGNANT NEOPLASM OF BONE Status: Chronic (12) Diabetes mellitus Code(s): E11.9 - TYPE 2 DIABETES MELLITUS WITHOUT COMPLICATIONS Status: Chronic Qualifiers: Diabetes mellitus type: type 2 - Plan continue antibiotics, PT/OT, out of bed/ambulate, DVT proph w/SCDs cont IV ABx for another 24 hurs.Likely DC home on PO tomorrow -: WBC counts better post Filgrastim.Monitor H/H & platelets -: DC bactrim given severe CKD.Family notified -: OP Oncology F/U for continued ChemoRx for lymphoma.HD stable -: am labs. home meds as below * . Review of Systems - Review of Systems Constitutional: negative: fever, chills, sweats, weakness, malaise, other Respiratory: negative: Cough, Dry, Shortness of Breath, Hemoptysis, SOB with Excertion, Pleuritic Pain, Sputum, Wheezing Cardiovascular: negative: chest pain, palpitations, orthopnea, paroxysmal nocturnal dyspnea, edema, light headedness, other Gastrointestinal: negative: Nausea, Vomiting, Abdominal Pain, Diarrhea, Constipation, Melena, Hematochezia, Other Genitourinary: negative: Dysuria, Frequency, Incontinence, Hematuria, Retention , Other Musculoskeletal: negative: Neck Pain, Shoulder Pain, Arm Pain, Back Pain, Hand Pain, Leg Pain, Foot Pain, Other Neurological: negative: Weakness, Numbness, Incoordination, Change in Speech, Confusion, Seizures, Other - Medications/Allergies Allergies/Adverse Reactions: Allergies Allergy/AdvReac Type Severity Reaction Status Date / Time Penicillins Allergy Severe DIFFICULTY Verified 12/12/18 12:04 BREATHING Medications: Current Medications Acetaminophen (Tylenol) 650 mg PO Q4H PRN PRN Reason: Headache/Fever/Mild Pain (1-3) Last Admin: 03/09/19 00:40 Dose: 650 mg Hydrocodone Bitart/Acetaminophen ([place] 7.5/325) 1 tab PO Q4H PRN PRN Reason: Mild Pain (1-3) Hydrocodone Bitart/Acetaminophen ([place] 7.5/325) 2 tab PO Q4H PRN PRN Reason: Moderate Pain (4-6) Last Admin: 03/08/19 08:59 Dose: 2 tab Albuterol/Ipratropium (Duoneb) 3 ml NEB [id number]-TB PRN PRN Reason: SOB &/or Wheezing Allopurinol (Zyloprim) 100 mg PO BID [facility] Last Admin: 03/09/19 09:04 Dose: 100 mg Artificial Tears (Tears Naturale) 2 drop EA EYE PRN PRN PRN Reason: Dry Eyes Aspirin (Ecotrin) 325 mg PO DAILY [facility] Last Admin: 03/09/19 09:04 Dose: 325 mg Atorvastatin Calcium (Lipitor) 20 mg PO HS [facility] Last Admin: 03/08/19 20:11 Dose: 20 mg Bisacodyl (Dulcolax) 10 mg ND DAILYPRN PRN PRN Reason: Constipation Calcium Carbonate (Tums) 1,000 mg PO Q4H PRN PRN Reason: Heartburn or Indigestion Calcium Carbonate (Tums) 1,000 mg PO Q4H PRN PRN Reason: Heartburn or Indigestion Carvedilol (Coreg) 25 mg PO BID [facility] Last Admin: 03/09/19 09:04 Dose: 25 mg Dextrose/Water (Dextrose 50%) 25 gm SLOW IVP PRN PRN PRN Reason: Hypoglycemia Famotidine (Pepcid) 20 mg PO DAILY [facility] Last Admin: 03/09/19 09:05 Dose: 20 mg Finasteride (Proscar) 5 mg PO HS [facility] Last Admin: 03/08/19 20:11 Dose: 5 mg Furosemide (Lasix) 40 mg PO DAILY [facility] Last Admin: 03/09/19 09:05 Dose: 40 mg Glucagon (Glucagon) 1 mg IM PRN PRN PRN Reason: Hypoglycemia Guaifenesin (Robitussin Sf) 200 mg PO Q4H PRN PRN Reason: Cough Hydralazine HCl (Apresoline) 10 mg SLOW IVP Q4H PRN PRN Reason: SBP > 180 and HR < 70 Levofloxacin 750 mg/ Device 150 mls @ 100 mls/hr IVPB Q2DAYS [facility] Last Admin: 03/08/19 00:38 Dose: 150 mls Dextrose/Water (D5w) 1,000 mls @ 0 mls/hr IV .Q0M PRN PRN Reason: Hypoglycemia Vancomycin HCl 750 mg/ Sodium (Chloride) 250 mls @ 250 mls/hr IVPB Q24HR [facility] Insulin Human Lispro (Humalog) 0 units SC .MODERATE SLIDING SC PRN PRN Reason: Moderate Correctional Scale Last Admin: 03/09/19 11:43 Dose: 8 units Insulin Human Lispro (Humalog) 0 units SC .BEDTIME SLIDING SC PRN PRN Reason: Bedtime Correctional Scale Last Admin: 03/08/19 21:15 Dose: 5 unit Loperamide HCl (Imodium) 2 mg PO PRN PRN PRN Reason: Diarrhea/Loose Stools Loratadine (Claritin) 10 mg PO DAILYPRN PRN PRN Reason: Sinus Symptoms Mineral Oil/White Petrolatum (Eucerin Cream) 0 gm TOP BIDPRN PRN PRN Reason: Dry Skin Miscellaneous Medication (Pharmacy To Dose) 1 each IVPB PRN PRN PRN Reason: Pharmacy to dose Ondansetron HCl (Zofran Odt) 4 mg PO Q6H PRN PRN Reason: Nausea/Vomiting Last Admin: 03/08/19 12:11 Dose: 4 mg Ondansetron HCl (Zofran) 4 mg IVP Q4H PRN PRN Reason: Nausea/Vomiting Last Admin: 03/08/19 15:13 Dose: 4 mg Prednisone (Prednisone) 100 mg PO DAILY [facility] Stop: 03/11/19 09:01 Last Admin: 03/09/19 09:05 Dose: 100 mg Saccharomyces Boulardii (Florastor) 250 mg PO DAILY [facility] Last Admin: 03/09/19 09:05 Dose: 250 mg Senna/Docusate Sodium (Senokot S) 2 tab PO BID PRN PRN Reason: Constipation Sodium Chloride ([place] Nasal [place] 0.65%) 0 ml EA NARE QIDPRN PRN PRN Reason: Nasal Congestion Sodium Chloride (Flush - Normal Saline) 10 ml IVF Q12HR [facility] Last Admin: 03/09/19 09:13 Dose: 10 ml Sodium Chloride (Flush - Normal Saline) 10 ml IVF PRN PRN PRN Reason: Saline Flush Throat Lozenges (Cepastat Lozenges) 1 cayden PO Q2H PRN PRN Reason: Sore Throat Zolpidem Tartrate (Ambien) 5 mg PO HSPRN PRN PRN Reason: Insomnia
--- NOTE | 2019-03-09 15:10 | PQF ---
CLINICAL DOCUMENTATION IMPROVEMENT CLARIFICATION FORM: ICD-10 Updated PLEASE DO AN ADDENDUM TO THE PROGRESS NOTE WITH ANY DOCUMENTATION UPDATES OR ADDITIONS AND CARRY THROUGH TO DC SUMMARY. THANK YOU. DATE: 03/09/19 ATTN: DR. JONES Please exercise your independent, professional judgment in responding to the clarification form. Clinical indicators are provided on the bottom of this form for your review Please check appropriate box(s): [ ] Aspiration Pneumonia [ ] Empirically treating Gram Negative Pneumonia [ ] Empirically treating Anaerobic Pneumonia [ ] Pneumonia secondary to (specify organism / underlying disease) [ X ] Simple Pneumonia (community acquired - nosocomial) [ ] Other diagnosis [ ] Unable to determine In addition, please specify: Present on Admission (POA): [ X ] Yes [ ] No [ ] Unable to determine For continuity of documentation, please document condition throughout progress notes and discharge summary. Thank You. CLINICAL INDICATORS - SIGNS / SYMPTOMS / LABS DX: PNEUMONIA WBC 2.7 BANDS 13.0 RISKS: B-CELL LYMPHOMA WITH CHEMOTHERAPY DIABETES TREATMENT: IV VANCOMYCIN (ER-PRESENT) IV ZOSYN (ER) IV LEVAQUIN (03/07-PRESENT) PREDNISONE (STARTED 03/09) NEBS (03/07-PRESENT) BLOOD CULTURES CHEST XRAY TELEMETRY MONITORING [employer] Programming Manager [employer] Winform Viewer (This form is maintained as a part of the permanent medical record) 2014 [employer]. All Rights Reserved [email or web address] Office: [phone] [facility]
[2019-03-09] MEDS: Atorvastatin Calcium 20 MG TAB PO SCH (20:54)
[2019-03-09] MEDS: Finasteride 5 MG TAB PO SCH (20:54)
[2019-03-09] MEDS ORDERED: Insulin Glargine 10 UNITS in Pre-Filled Syringe SC SCH (21:00)
[2019-03-09] MEDS ORDERED: Vancomycin HCl 1.5 GM in Sodium Chloride 0.9% 250 ML 300 ML IVPB SCH (21:00)
[2019-03-09] MEDS ORDERED: Vancomycin HCl 750 MG in Sodium Chloride 0.9% 250 ML 250 ML IVPB SCH (22:00)
[2019-03-10] MEDS ORDERED: Insulin Glargine 10 UNITS in Pre-Filled Syringe SC SCH (09:00)
[2019-03-10 09:41] LABS: #Lymphocytes 0.3 thou/uL (1.20-3.40); %Eosinophils 0.2 % (0.0-10.0); %Monocytes 0.2 % (0.0-10.0); %Neutrophils 95.6 % (42.0-75.0); Hemoglobin 7.5 g/dL (14.0-18.0); Mean Corpuscular HGB CONC 33.8 g/dL (32.0-36.0); Mean Corpuscular Hemoglobin 33.1 pg (27.0-31.0); Mean Corpuscular Volume 98.2 fL (78.0-98.0); Mean Platelet Volume 8.6 fL (7.4-10.4); Platelet Count 57 thou/uL (130-400); RBC Distribution Width 13.8 % (11.5-14.5); Red Blood Cell (RBC) Count 2.27 mill/uL (4.70-6.10); White Blood Cell (WBC) Count 6.3 thou/uL (4.8-10.8)
[2019-03-10 09:57] LABS: Anion Gap 13 mmol/L (10-20); BUN (Urea Nitrogen) 70 mg/dL (8.4-25.7); Calc. Creatinine Clearance 20 mL/min (70-130); Calcium 8.8 mg/dL (7.8-10.44); Carbon Dioxide 20 mmol/L (23-31); Chloride 108 mmol/L (98-107); Estimated GFR-MDRD 17; Glucose 251 mg/dL (80-115); Potassium 4.4 mmol/L (3.5-5.1); Sodium 137 mmol/L (136-145)
[2019-03-10 10:25] VITALS: BP 154/79; TEMP 98
[2019-03-10] MEDS: Furosemide 40 MG TAB PO SCH (10:39)
[2019-03-10] MEDS: predniSONE 50 MG TAB PO SCH (10:39)
[2019-03-10] MEDS: Aspirin 325 mg Enteric Coated Tablet PO SCH (10:39)
[2019-03-10] MEDS: Carvedilol 25 MG TAB PO SCH (10:39)
[2019-03-10] MEDS: Allopurinol 100 MG TAB PO SCH (10:39)
[2019-03-10] MEDS: Famotidine 20 MG TAB PO SCH (10:39)
[2019-03-10] MEDS: Saccharomyces boulardii 250 MG CAP PO SCH (10:40)
--- NOTE | 2019-03-11 05:17 | DIS ---
DATE OF ADMISSION: 03/07/2019 DATE OF DISCHARGE: 03/10/2019 PRIMARY CARE PHYSICIAN: Tatianna Reid MD DISCHARGE DISPOSITION: Home with [facility]. DISCHARGE DIAGNOSES: 1. Uncomplicated community-acquired pneumonia. 2. Pancytopenia due to antineoplastic chemotherapy. 3. Chronic systolic congestive heart failure, ACC stage 3. 4. History of coronary artery disease and coronary artery bypass graft. 5. Metastatic B-cell lymphoma. 6. Chronic kidney disease, stage 4. 7. Diabetes mellitus type 2. 8. Hypertension. 9. Dyslipidemia. 10. Diabetes mellitus. DISCHARGE MEDICATIONS: Discontinued medication: Bactrim, the patient and family have been instructed very specifically to not take Bactrim anymore. I tried to find out why they were on that day, had no recollection of being told to start antibiotic. The patient was taking it 3 times a week. Medications: Levofloxacin 250 mg p.o. daily for 5 more days, Florastor 250 mg daily for 10 days. Resume home medications as follows: 1. Atorvastatin 20 mg daily. 2. Allopurinol 100 mg p.o. b.i.d. 3. Carvedilol 25 mg p.o. b.i.d. 4. Zofran p.r.n. 5. Lasix 40 mg daily. 6. Aspirin 325 mg daily. 7. Finasteride 5 mg daily. 8. Calcium carbonate in the form of Tums p.r.n. 9. [place] p.r.n. IN-HOUSE CONSULTATION: Oncology, Dr. Elkin De Jesus. PROCEDURES: Chest x-ray upon presentation, which showed right-sided pneumonia. HISTORY OF PRESENTING ILLNESS: Mr. Young is a 68-year-old male with recent diagnosis of B-cell lymphoma with bone METS, on chemotherapy, who presented to the emergency room with complaints of cough, shortness of breath, generalized weakness, and malaise. In the ER, chest x-ray confirmed right-sided pneumonia. He was started on empiric antibiotics. On admission, he was pancytopenic with WBC count of 2.7, hemoglobin 8.0, platelet count of 86. He was 2 days post chemotherapy. Oncology was consulted. Please see admission history and physical dictated by Dr. Dupree on 03/07/2019. HOSPITAL COURSE: Mr. Young did fairly well throughout the rest of his hospitalization. He was seen by his oncologist, Dr. De Jesus, who ordered a dose of filgrastim. Rest of the counts remained stable and his WBC count improved to 9.6 and then 6.3. He was back to his baseline and eager to go home. His cultures remain negative. He was seen and examined this morning and has clinically improved. He will be discharged. PHYSICAL EXAMINATION: VITAL SIGNS: This morning, vital signs are stable. Blood pressure 154/79, 100% on room air. CHEST: Clear to auscultation bilaterally. HEART: Rate and rhythm is regular. No acute distress. The patient is instructed strongly to stop his Bactrim which was started for unknown reasons at unknown time. He has severe chronic kidney disease and his creatinine ranged anywhere from 3.45 to 3.65 in the hospital, which seems to be his baseline. The , patient, and daughter understood it. He will be discharged. Job ID: [id number]
--- NOTE | 2019-03-12 15:31 | EKG ---
Test Reason : Blood Pressure : / mmHG Vent. Rate : 086 BPM Atrial Rate : 086 BPM P-R Int : 136 ms QRS Dur : 100 ms QT Int : 398 ms P-R-T Axes : 033 003 147 degrees QTc Int : 476 ms Normal sinus rhythm Prolonged QT Abnormal ECG T wave inversions in V4-V6 seen on old EKG from 12/11/2018 Confirmed by ZACK QUIROZ ([id number]), magazine editor MATTHEW SESAY ([id number]) on 03/12/2019 3:31:46 PM Referred By: Confirmed By:ZACK QUIROZ
== END 2019-03-10 14:00 | disposition home or self-care (01) | DRG 193 ==
LOC: ERS 18:17 → 2NO 21:25
PROVIDERS: ADMIT Internal Medicine; ATTEND Internal Medicine
DX: J18.9 Pneumonia, unspecified organism (principal); D61.810 Antineoplastic chemotherapy induced pancytopenia; N18.4 Chronic kidney disease, stage 4 (severe); I13.0 Hypertensive heart and chronic kidney disease with heart failure and stage 1 through stage 4 chronic kidney disease, or unspecified chronic kidney disease; I50.22 Chronic systolic (congestive) heart failure; C79.51 Secondary malignant neoplasm of bone; C83.30 Diffuse large B-cell lymphoma, unspecified site; E11.22 Type 2 diabetes mellitus with diabetic chronic kidney disease; N40.0 Benign prostatic hyperplasia without lower urinary tract symptoms; M10.9 Gout, unspecified; T45.1X5A Adverse effect of antineoplastic and immunosuppressive drugs, initial encounter; E78.5 Hyperlipidemia, unspecified; Z95.1 Presence of aortocoronary bypass graft; Z90.49 Acquired absence of other specified parts of digestive tract; Z88.0 Allergy status to penicillin; Z79.82 Long term (current) use of aspirin; Z79.52 Long term (current) use of systemic steroids; Z79.4 Long term (current) use of insulin; Z79.899 Other long term (current) drug therapy; I25.10 Atherosclerotic heart disease of native coronary artery without angina pectoris; Z95.5 Presence of coronary angioplasty implant and graft
CPT/HCPCS: 36415; 36416; 71045; 80048; 80053; 80202; 81003; 81015; 82248; 82550; 82553; 83605; 83615; 83690; 83880; 84100; 84484; 84550; 85025; 87040; 87086; 93005; 93306; 96365; 96375; 96413; J1642; J1825; J1956; J2405; J2543; J3370; J7050; J9201; Q0162; Q5108

== ENCOUNTER 2019-03-17 13:17 | Day surgery (SDC) | payer MEDICARE, OTHER ==
--- NOTE | 2019-03-11 16:00 | PDOC.EVN ---
Event Note - Event Note Event Note: ECHO RESULT CALLED TO PT AND FAMILY, PT IS DOING OK, PT WILL MAKE APPOINTMENT IN OFFICE
[~2019-03-17 13:17] MED LIST changes: -GEMZAR IVPB SCH; -Ondansetron 2MG/ML MDV 10 MG in Sodium Chloride 0.9% 50 ML IVPB SCH; +PEGFILGRASTIM-JMDB 6 MG/0.6 ML SYRINGE SQ SCH; -SODIUM CHLORIDE 0.9% IVPB SCH
[2019-03-17] MEDS ORDERED: diphenhydrAMINE 25 MG CAP PO SCH (15:00)
[2019-03-17] MEDS ORDERED: Acetaminophen 500 MG TAB PO SCH (15:00)
[2019-03-17 19:46] VITALS: TEMP 98.1
[2019-03-17 19:48] LABS: Hemoglobin 7.2 g/dL (14.0-18.0); Mean Corpuscular HGB CONC 33.8 g/dL (32.0-36.0); Mean Corpuscular Volume 97.6 fL (78.0-98.0); Mean Platelet Volume 9.2 fL (7.4-10.4); Platelet Count 37 thou/uL (130-400); Red Blood Cell (RBC) Count 2.18 mill/uL (4.70-6.10); White Blood Cell (WBC) Count 16.1 thou/uL (4.8-10.8)
[2019-03-17 19:54] LABS: Band 12 % (5-11); Hypochromia SLIGHT = 6-15 cells (100X) (0-5/hpf); Lymphocytes 6 % (21-51); MDiff Complete? YES; Monocytes 12 % (0-10); Neutrophil 70 % (42-75); Platelet Morphology Comment Appears Decreased
[2019-03-17 23:10] VITALS: BP 143/80
[2019-03-17 23:36] LABS: Hemoglobin 7.7 g/dL (14.0-18.0); Mean Corpuscular HGB CONC 33.4 g/dL (32.0-36.0); Mean Corpuscular Hemoglobin 32.9 pg (27.0-31.0); Mean Corpuscular Volume 98.4 fL (78.0-98.0); Mean Platelet Volume 9.2 fL (7.4-10.4); Platelet Count 41 thou/uL (130-400); RBC Distribution Width 14.4 % (11.5-14.5); Red Blood Cell (RBC) Count 2.33 mill/uL (4.70-6.10); White Blood Cell (WBC) Count 16.7 thou/uL (4.8-10.8)
[2019-03-17 23:58] LABS: Band 6 % (5-11); Hypochromia SLIGHT = 6-15 cells (100X) (0-5/hpf); Lymphocytes 5 % (21-51); MDiff Complete? YES; Metamyelocyte 2 % (0-0); Monocytes 8 % (0-10); Neutrophil 79 % (42-75); Platelet Morphology Comment Appears Decreased
== END 2019-03-17 23:15 | disposition home or self-care (01) ==
LOC: ONC/OP 13:17 → ONC 13:25 → ONC/OP 23:15
PROVIDERS: ATTEND Internal Medicine Hematology & Oncology
PROC: 30233N1 Transfusion of Nonautologous Red Blood Cells into Peripheral Vein, Percutaneous Approach (ICD-10-PCS; principal; 2019-03-17)
DX: D64.9 Anemia, unspecified (principal); D69.6 Thrombocytopenia, unspecified; Z88.0 Allergy status to penicillin
CPT/HCPCS: 36415; 36430; 80053; 82248; 83615; 84100; 84550; 85025; 86850; 86900; 86901; P9016; Q0163

== ENCOUNTER 2019-03-21 09:29 | Day surgery (SDC) | payer MEDICARE, OTHER ==
[~2019-03-21 09:29] MED LIST changes: +Acetaminophen 500 MG TAB PO PRN; +CYCLOPHOSPHAMIDE IVPB SCH; +DEXAMETHASONE SOD PHOSPHATE IVPB SCH; +GEMZAR IVPB SCH; +ONDANSETRON IVPB SCH; -PEGFILGRASTIM-JMDB 6 MG/0.6 ML SYRINGE SQ SCH; +Rituximab 500 MG, Rituximab 200 MG in Sodium Chloride 0.9% 500 ML IVPB SCH; +SODIUM CHLORIDE 0.9% IVPB SCH; +[UNRECOGNIZED DRUG - OTHER] IVPB SCH; +diphenhydrAMINE 25 MG in Sodium Chloride 0.9% 50 ML IVPB SCH; +vinCRIStine Sulfate 2 MG in Sodium Chloride 0.9% 50 ML IVPB SCH
[2019-03-21 09:43] VITALS: TEMP 97.7
[2019-03-21] MEDS ORDERED: Sodium Chloride 0.9% 20 ML ONE (10:14)
[2019-03-21 13:21] VITALS: BP 130/70
== END 2019-03-21 16:16 | disposition home or self-care (01) ==
LOC: ONC/OP 09:29
PROVIDERS: ATTEND Internal Medicine Hematology & Oncology
DX: Z51.11 Encounter for antineoplastic chemotherapy (principal); C83.39 Diffuse large B-cell lymphoma, extranodal and solid organ sites; Z88.0 Allergy status to penicillin
CPT/HCPCS: 36416; 96375; 96411; 96413; 96415; 96417; J1100; J1200; J1642; J2405; J7050; J9070; J9201; J9310; J9312; J9370

== ENCOUNTER 2019-03-26 15:58 | Inpatient (IN) | payer MEDICARE, OTHER ==
--- NOTE | 2019-03-26 16:47 | RAD ---
PA AND LATERAL VIEWS OF THE CHEST: 03/26/19 HISTORY: Cough, chest pain, sore throat. Patient is on active chemotherapy for lymphoma. FINDINGS: Comparison is made with exam of 03/07/2019. Changes of median sternotomy again seen. The right sided Port-A-Cath still remains in place. The hear t size is stable. There is pulmonary vascular congestion with bilateral infiltrates, more so in the l eft lung base. No pneumothoraces or pleural effusions are seen. IMPRESSION: Findings suspicious for pneumonia. POS: [facility]
[2019-03-26 16:53] LABS: ALT (SGPT) 40 U/L (8-55); AST (SGOT) 29 U/L (5-34); Albumin 2.6 g/dL (3.4-4.8); Alkaline Phosphatase 83 U/L (40-150); Anion Gap 14 mmol/L (10-20); BUN (Urea Nitrogen) 96 mg/dL (8.4-25.7); Bilirubin, Total 0.4 mg/dL (0.2-1.2); CK (CPK) 381 U/L (30-200); Calc. Creatinine Clearance 0 mL/min (70-130); Calcium 8.5 mg/dL (7.8-10.44); Carbon Dioxide 22 mmol/L (23-31); Chloride 104 mmol/L (98-107); Estimated GFR-MDRD 16; Globulin 1.9 g/dL (2.4-3.5); Glucose 268 mg/dL (80-115); Potassium 5.3 mmol/L (3.5-5.1); Protein, Total 4.5 g/dL (5.8-8.1); Sodium 135 mmol/L (136-145)
[2019-03-26 17:24] LABS: CKMB 8.4 ng/mL (0-6.6)
[2019-03-26 17:42] LABS: #Lymphocytes 0.2 thou/uL (1.20-3.40); #Neutrophils 5.9 thou/uL (1.40-6.50); %Basophils 0.5 % (0.0-1.0); %Eosinophils 0.2 % (0.0-10.0); %Lymphocytes 2.4 % (21.0-51.0); %Monocytes 0.3 % (0.0-10.0); %Neutrophils 96.7 % (42.0-75.0); Hemoglobin 7.9 g/dL (14.0-18.0); Mean Corpuscular HGB CONC 34.6 g/dL (32.0-36.0); Mean Corpuscular Hemoglobin 33.9 pg (27.0-31.0); Mean Platelet Volume 9.3 fL (7.4-10.4); Platelet Count 218 thou/uL (130-400); RBC Distribution Width 14.2 % (11.5-14.5); Red Blood Cell (RBC) Count 2.32 mill/uL (4.70-6.10); White Blood Cell (WBC) Count 6.1 thou/uL (4.8-10.8)
[2019-03-26] MEDS ORDERED: Aspirin Chewable 81 MG TAB ONE (19:29)
[2019-03-26] MEDS ORDERED: Nitroglycerin 2% Ointment 1 INCH/1 GM Packet ONE (19:29)
[2019-03-26] MEDS ORDERED: cefTRIAXone\\ROCEPHIN 2 GM VIAL ONE (19:29)
[2019-03-26] MEDS ORDERED: Furosemide 40 MG/4 ML VIAL ONE (19:29)
[2019-03-26 19:37] LABS: Bilirubin Negative (Negative); Blood, Urine Moderate (Negative); Clarity CLEAR (Clear); Glucose, Urine (Dipstick) 250 mg/dL (Negative); Leukocyte Negative (Negative); Nitrite Negative (Negative); Protein, Urine (Dipstick) 300 mg/dL (Neg-Trace); Specific Gravity, Urine 1.013 (1.002-1.036); Urobilinogen 0.2 mg/dL (0.2-1.0)
[2019-03-26 19:39] LABS: Bacteria/HPF None Seen HPF (None Seen); Hyaline Casts/LPF 0-3 HYALINE CAST LPF (0-3 Hyaline); Pathc Cast-AUWi Flag 0.13 (0-2.49); RBC/HPF 0-3 HPF (0-3); Squamous Epithelial 0-3 HPF (0-3); WBC/HPF 0-3 HPF (0-3)
--- NOTE | 2019-03-26 20:06 | CT ---
CT BRAIN WITHOUT CONTRAST: HISTORY:Syncope COMPARISON:04/06/2018 FINDINGS: There are foci of decreased attenuation in the periventricular white matter, consistent with chronic small vessel ischemic disease. No evidence of acute infarct, hemorrhage, midline shift or abnormal extra-axial fluid collections is seen. The ventricular size is appropriate and the basilar cisterns are patent. The bony calvarium is intact. There is mucosal disease in the paranasal sinuses. IMPRESSION: No CT evidence of acute intracranial process.
--- NOTE | 2019-03-26 20:45 | CON ---
DATE OF CONSULTATION: REASON FOR CONSULTATION: Elevated creatinine and hyperkalemia. HISTORY OF PRESENT ILLNESS: This is a very well 68-year-old gentleman, who presented to the hospital with cough, shortness of breath, and neck swelling. The patient has a history of CKD stage 4 and progressive renal function worsens. The patient denies headache, numbness, tingling, or weakness. Denies any nausea, vomiting, or chest pain. PAST MEDICAL HISTORY: Significant for diffuse large-cell lymphoma, diabetes mellitus, hypertension, CKD, history of CABG, vitrectomy, retinal detachment, cholecystectomy, and sphincterotomy. FAMILY HISTORY: Negative for ESRD. ALLERGIES: REVIEWED. MEDICATIONS: Home medications list reviewed. Hospital medications list reviewed. REVIEW OF SYSTEMS: A 15-point review of system was performed, negative except for positives noted above. GENERAL: HEAD: NECK: No swelling or lumps. NOSE: No epistaxis or discharge. EYES: No diplopia or pain. RESPIRATORY: CARDIOVASCULAR: GASTROINTESTINAL: /COMBATANT DIVER QUALIFIED: MUSCULOSKELETAL: No joint pain. NEUROPSYCHIATRIC SYSTEMS: No suicidal ideation. No ideation. SKIN: Denies any rash or ulcer. CONSTITUTIONAL: No fever or chills. PHYSICAL EXAMINATION: GENERAL: The patient is awake and alert. VITAL SIGNS: Afebrile, pulse 70, breathing 16, and blood pressure 130/70. GENERAL APPEARANCE AND MENTAL STATUS: Fair. HEAD/NECK: Normocephalic. Atraumatic. EYES: EOMI. No deformity. EARS: Clear. No ulcers. NOSE: Intact. No lesions. MOUTH: Clear. No discharge. THROAT: Clear. No exudate. LUNGS: Clear. No crackles. CARDIAC: S1, S2. No rub. ABDOMEN: Benign. Bowel sounds positive. GENITALIA/RECTUM: Connor absent. BACK/EXTREMITIES: Edema 0+. NEUROLOGICAL: Alert and motor intact. SKIN: LYMPHATICS: LABORATORY DATA: Reviewed. ASSESSMENT AND PLAN: 1. Chronic kidney disease stage 4 with acute kidney injury and hyperkalemia. Continue Lasix. If renal function does not improve, we will consider dialysis. 2. Anemia, stable. 3. Hypertension, stable. 4. Chronic kidney disease stage 4. 5. Congestive heart failure, management per primary team. Overall prognosis is poor. Job ID: [id number]
[2019-03-26 20:46] LABS: Troponin I 0.548 ng/mL (< 0.028)
[2019-03-26] MEDS ORDERED: Ondansetron ODT 4 MG TAB SL PRN (22:03)
[2019-03-26] MEDS ORDERED: Ondansetron PF 4 MG/2 ML Vial IVP PRN (22:03)
[2019-03-26] MEDS ORDERED: Acetaminophen 325 MG TAB PO PRN (22:53)
[2019-03-26 23:07] LABS: Critical Call Chem Troponin I RESULT DECREASING; Troponin I 0.537 ng/mL (< 0.028)
[2019-03-26 23:32] VITALS: BMI 28.2
[2019-03-26] MEDS ORDERED: cefTRIAXone\\ROCEPHIN 1 GM in Sodium Chloride 0.9% 100 ML IVPB SCH (23:45)
[2019-03-27] MEDS ORDERED: Azithromycin 500 MG in Sodium Chloride 0.9% 250 ML 250 ML IVPB SCH (02:00)
[2019-03-27] MEDS ORDERED: Dextrose 5% in Water 1,000 ML IV PRN (02:11)
[2019-03-27] MEDS ORDERED: Dextrose 50% Abboject 50 ML SYRINGE SLOW IVP PRN (02:11)
[2019-03-27] MEDS ORDERED: HYDROcodone/Acetaminophen 5/325 mg Tablet PO PRN (02:30)
[2019-03-27] MEDS: HYDROcodone/Acetaminophen 5/325 mg Tablet PO PRN (02:43)
--- NOTE | 2019-03-27 03:27 | HP ---
PRIMARY CARE DOCTOR: CODE STATUS: Full code. TIME OF EVALUATION: 08:30 p.m. CHIEF COMPLAINT: The patient came with shortness of breath. HISTORY OF PRESENT ILLNESS: A 68-year-old male patient with past medical history of type 2 diabetes on insulin, coronary artery disease, hyperlipidemia, hypertension, lymphoma, stage IV, CHF, came to the hospital after having shortness of breath, sore throat, cough, weakness associated with abdominal pain, bilateral leg swelling, recently discharged from the hospital after having lymphoma treated with chemo and also pneumonia. The patient reported he gained 20 pounds in a week. Symptoms all were generalized, severe, gradually worsening. REVIEW OF SYSTEMS: CONSTITUTIONAL: No fever, chills, or generalized weakness. RESPIRATORY: The patient has some cough and shortness of breath. CARDIOVASCULAR: No chest pain or palpitation. GASTROINTESTINAL: No nausea, no vomiting, diarrhea, or abdominal pain. CLINICAL UNIT EDUCATOR: No dizziness or headache. GENITOURINARY: No burning on urination. EXTREMITIES: Bilateral leg swelling. All other systems were reviewed and negative except for the findings mentioned above. PAST MEDICAL HISTORY: As mentioned in the HPI. PAST SURGICAL HISTORY: The patient has coronary artery bypass graft surgery x4 vessels, left eye surgery, right eye surgery for retinal detachment. Family and patient unsure about which surgery on which eye, cholecystectomy, and cardiac stent placement. FAMILY HISTORY: Reviewed and non contributory for current presentation. PSYCH HISTORY: No previous psych history. SOCIAL HISTORY: No alcohol. No drugs. No smoking history. KNOWN ALLERGIES: To penicillin. REPORTED MEDICATIONS: Unable to obtain. PHYSICAL EXAMINATION: VITAL SIGNS: On presentation, blood pressure 135/74 with heart rate 75, respiratory rate was 16, temperature 97.9, pain 6/10, and oxygen saturation was 97. GENERAL APPEARANCE: The patient is alert, oriented, not in acute distress. HEENT: Eyes, normal conjunctivae. Moist oral mucosa. Anicteric. No JVD. RESPIRATORY: Bilateral air entry. No rales. No wheezes. Symmetric expansion. CARDIOVASCULAR: Normal rate and regular rhythm. No murmurs. No gallop. Bilateral leg edema. ABDOMEN: Soft. Normal bowel sounds. MUSCULOSKELETAL: Baseline range of motion and strength. No tenderness. SKIN: Warm and intact. No pallor. No rash. No redness. Peripheral pulses are present. Capillary refill seems to be intact. NEURO: No evidence of any new focal weakness. Baseline speech. Cranial nerves seem to be intact. PSYCH: The patient is in good mood. No anxiety. Optimal judgment. DIAGNOSTIC STUDIES: EKG was reviewed. The patient has normal sinus rhythm, ST and T-wave abnormality, consider lateral ischemia. Ventricular rate 76, OR 112, QRS 102, and QT corrected 450. Chest x-ray findings suspicion for pneumonia. Brain CT, no CTA evidence of acute intracranial process. LABORATORY DATA: Reviewed. The patient has white count 6.1, hemoglobin 7.9, MCV 98, and platelet count 218. Chemistry: Sodium 155, potassium 5.3, chloride 104 , carbon dioxide 22, anion gap 14, BUN 96, creatinine 3.84, GFR 16, and glucose 268. Troponin is 0.517, the second one 0.537. Beta-natriuretic peptide 4424. Urine some proteinuria and glucosuria. ASSESSMENT AND PLAN: The patient will be placed in the hospital with following medical problems: 1. Possible pneumonia seen on the chest x-ray. The patient is getting antibiotics, follow cultures, we will adjust treatment as needed. 2. Chronic normocytic anemia. This is likely secondary to underlying end-stage renal disease. No need for any acute intervention at this point. Hemoglobin is at same level. We will defer any treatment for Nephro's recommendation. 3. Hyponatremia. Sodium 135, reconcile. As this is mild, no need for any acute intervention at this point, we will replace as needed. 4. Hyperkalemia, potassium 5.3, is likely secondary to chronic kidney disease, this is mild, no need for any acute intervention at this point. The patient to receive dialysis if indicated as per Dr. Noland's recommendation. 5. Chronic kidney disease with BUN [address] Noland will be consulted. We will follow recommendations. 6. Uncontrolled diabetes with blood sugar 268, hyperglycemia, reconcile home medications. We will adjust sliding scale for optimal control. 7. Deep venous thrombosis prophylaxis. 8. Non stemi likely type 2, trop level ~0.5, we will trend likely due to underlying condition, cardiology consult if waranted. Job ID: [id number] MTDD
[2019-03-27 06:12] LABS: #Lymphocytes 0.4 thou/uL (1.20-3.40); #Neutrophils 6.3 thou/uL (1.40-6.50); %Basophils 0.1 % (0.0-1.0); %Eosinophils 0.2 % (0.0-10.0); %Lymphocytes 5.8 % (21.0-51.0); %Monocytes 0.6 % (0.0-10.0); %Neutrophils 93.3 % (42.0-75.0); Hemoglobin 7.5 g/dL (14.0-18.0); Mean Corpuscular HGB CONC 33.4 g/dL (32.0-36.0); Mean Corpuscular Hemoglobin 33.1 pg (27.0-31.0); Mean Platelet Volume 8.5 fL (7.4-10.4); Platelet Count 222 thou/uL (130-400); RBC Distribution Width 14.8 % (11.5-14.5); Red Blood Cell (RBC) Count 2.25 mill/uL (4.70-6.10); White Blood Cell (WBC) Count 6.8 thou/uL (4.8-10.8)
[2019-03-27 06:28] LABS: Anion Gap 12 mmol/L (10-20); BUN (Urea Nitrogen) 95 mg/dL (8.4-25.7); Calc. Creatinine Clearance 23 mL/min (70-130); Calcium 8.3 mg/dL (7.8-10.44); Carbon Dioxide 25 mmol/L (23-31); Chloride 107 mmol/L (98-107); Estimated GFR-MDRD 17; Glucose 79 mg/dL (80-115); Potassium 4.2 mmol/L (3.5-5.1); Sodium 140 mmol/L (136-145)
--- NOTE | 2019-03-27 09:42 | NM ---
NM Lung Vent Perf Imaging HISTORY:Shortness of breath chest pain COMPARISON: Prior day's chest x-ray. FINDINGS: The ventilation scan was performed using 11.2 mCi of xenon-133 gas. Perfusion study was per formed using 6.6 mCi of 99 m technetium MAA. Shows a fairly normal ventilation and perfusion examination. No air trapping. No segmental or subsegm ental defects. IMPRESSION: Findings compatible with a low probability of pulmonary embolus.
[2019-03-27] MEDS: Heparin 5,000 UNITS/ML VIAL SC SCH ×3 (10:54→20:30)
[2019-03-27] MEDS ORDERED: Ondansetron PF 4 MG/2 ML Vial IVP PRN (11:37)
--- NOTE | 2019-03-27 11:40 | PDOC.PN ---
- Subjective Encounter Start Date: 03/27/19 Encounter Start Time: 11:38 Patient seen and examined, daughter at bedside, no new issues or complaints, all questions answered. - Objective Resuscitation Status - Order Detail: 03/26/19 22:53 Resuscitation Status Routine Resuscitation Status: FULL: Full Resuscitation Vital Signs & Weight: Vital Signs (12 hours) Temp Pulse Ox 03/27/19 11:19 97.1 F L 03/27/19 08:00 100 03/27/19 07:12 96.8 F L 03/27/19 04:00 97.6 F 03/27/19 00:00 97.5 F L Weight Weight 183 lb 3.2 oz Most Recent Monitor Data Heart Rate from ECG 82 NIBP 138/75 NIBP BP-Mean 96 Respiration from ECG 8 SpO2 93 I&O: 03/26/19 03/27/19 03/28/19 06:59 06:59 06:59 Intake Total 460 Output Total 1075 Balance -615 Result Diagrams: 03/27/19 05:57 03/27/19 05:57 Additional Labs: Accuchecks 03/27/19 03/27/19 03/26/19 10:29 05:51 22:34 POC Glucose 161 H 93 183 H Phys Exam - Physical Examination Constitutional: NAD HEENT: PERRLA, moist MMs, sclera anicteric Neck: no nodes, no JVD, supple Respiratory: no wheezing, no rales, no rhonchi Cardiovascular: RRR, no rub systolic murmur Gastrointestinal: soft, non-tender, no distention, positive bowel sounds Musculoskeletal: pulses present, edema present (trace) Dx/Plan (1) B-cell lymphoma of extranodal site Code(s): C85.19 - UNSP B-CELL LYMPHOMA, EXTRANODAL AND SOLID ORGAN SITES Status: Acute (2) Chest pain, rule out acute myocardial infarction Code(s): R07.9 - CHEST PAIN, UNSPECIFIED Status: Acute (3) B-cell lymphoma Code(s): C85.10 - UNSPECIFIED B-CELL LYMPHOMA, UNSPECIFIED SITE Status: Chronic Comment: pt receiving chemotherapy (4) Bone metastases Code(s): C79.51 - SECONDARY MALIGNANT NEOPLASM OF BONE Status: Chronic (5) Chronic kidney disease, stage 4 (severe) Code(s): N18.4 - CHRONIC KIDNEY DISEASE, STAGE 4 (SEVERE) Status: Chronic Comment: stable, present on admission (6) Chronic systolic CHF, NYHA class 2 and KHURRAM/AHA stage C Code(s): I50.22 - CHRONIC SYSTOLIC (CONGESTIVE) HEART FAILURE Status: Chronic Comment: last ECHO 01/18-EF 35-40% (7) DM2 (diabetes mellitus, type 2) Status: Chronic Comment: controlled (8) HLD (hyperlipidemia) Code(s): E78.5 - HYPERLIPIDEMIA, UNSPECIFIED Status: Chronic Comment: on statin (9) HTN (hypertension) Code(s): I10 - ESSENTIAL (PRIMARY) HYPERTENSION Status: Chronic Comment: Control inadequate (10) Hx of CABG Status: Chronic - Plan * Patient states he's feeling better * cardio, pulm and renal consulted * patient states he does NOT want dialysis even if it means he will pass away, advised to discuss at length with daughter and his prior to making his decision regarding HD if he needs * per family he was going to get chemo tomorrow with Dr. De Jesus, they're requesting to see the oncologist so will place consult per family request * restart zofran * Echo from shows EF 35-40% and significantly elevated RSVP at 55mmHG * labs otherwise stable * continue current tx plan * case and plan d/w patient and daughter at length, they understood and agreed with this plan.
[2019-03-27] MEDS ORDERED: Furosemide 100 MG/10 ML VIAL SLOW IVP SCH (13:45)
[2019-03-27] MEDS ORDERED: Aspirin 325 MG TAB PO SCH (13:45)
[2019-03-27] MEDS ORDERED: Aspirin 81 mg Enteric Coated Tablet PO SCH (14:00)
--- NOTE | 2019-03-27 14:19 | PRG ---
DATE OF SERVICE: 03/27/2019 SUBJECTIVE: A 68-year-old gentleman being seen for acute kidney injury. The patient denies any nausea, vomiting, or chest pain. OBJECTIVE: CONSTITUTIONAL: On exam, the patient is awake and alert. VITAL SIGNS: Afebrile, pulse 95, breathing 16, and blood pressure 151/87. GENERAL APPEARANCE AND MENTAL STATUS: Fair. HEAD/NECK: Normocephalic. Atraumatic. EYES: EOMI. No deformity. EARS: Clear. No ulcers. NOSE: Intact. No lesions. MOUTH: Clear. No discharge. THROAT: Clear. No exudate. LUNGS: Clear. No crackles. CARDIAC: S1, S2. No rub. ABDOMEN: Benign. Bowel sounds positive. GENITALIA/RECTUM: Connor absent. BACK/EXTREMITIES: Edema 0+. NEUROLOGICAL: Alert and motor intact. SKIN: LYMPHATICS: LABORATORY DATA: Labs show hemoglobin 7.5. Creatinine 3.5. ASSESSMENT AND PLAN: 1. Chronic kidney disease stage 4, stable. 2. Acute kidney injury stable. 3. Hypertension, stable. 4. Congestive heart failure, management per primary team. No indication for dialysis. 5. Hyperkalemia, has improved. We will follow closely. Job ID: [id number]
[2019-03-27] MEDS: Carvedilol 25 MG TAB PO SCH (15:29)
--- NOTE | 2019-03-27 15:37 | CON ---
DATE OF CONSULTATION: 03/27/2019 SERVICE: Pulmonary Medicine. REASON FOR CONSULTATION: CU patient. HISTORY OF PRESENT ILLNESS: The patient is a 68-year-old male with past medical history significant for stage 4 chronic kidney disease, systolic heart failure, and recent diagnosis of stage IV lymphoma. Two weeks ago, he was in the hospital, getting chemotherapy. He was subsequently discharged from the hospital, but ultimately developed increasing shortness of breath, 20-pound weight gain over this period of time. He ran out of multiple medications. He had increasing shortness of breath and presented to the emergency department. He was found floridly overloaded, but the chest x-ray suggested there was a possible pneumonia. V/Q scan was performed, which was essentially negative including the ventilation scan. He was tucked into the ICU after given some fluids and antibiotics. He had no complaints of fevers, sputum production, nausea, vomiting, or diarrhea. He is having increasing orthopnea and paroxysmal nocturnal dyspnea. He denies any chest discomfort. PAST MEDICAL HISTORY: 1. Coronary artery disease. 2. Hypertension. 3. Dyslipidemia. 4. Type 2 diabetes mellitus. 5. Chronic systolic and diastolic heart failure. 6. Lymphoma, stage IV. PAST SURGICAL HISTORY: 1. Coronary artery bypass graft x4 vessels. 2. Left eye surgery. 3. Right eye surgery for retinal detachment. 4. Cholecystectomy. 5. History of percutaneous coronary intervention with stent placement. SOCIAL HISTORY: Negative for alcohol, tobacco, or illicit drug use currently. He has no exposure to chemicals, dust, asbestos, or tuberculosis. FAMILY HISTORY: Noncontributory. ALLERGIES: PENICILLIN. MEDICATIONS: List of his inpatient medications were reviewed. Multiple updates were made. REVIEW OF SYSTEMS: General; head, ears, eyes, nose, and throat; cardiovascular; respiratory; GI; ; musculoskeletal; neurologic; and skin are negative except as mentioned in the HPI. PHYSICAL EXAMINATION: VITAL SIGNS: Afebrile, pulse 85, blood pressure 163/85, respirations 18, and saturation 100% on room air. GENERAL: The patient is awake and alert, in no apparent distress. LUNGS: There is good air entry without any prolonged expiratory phase. There are no crackles anteriorly. Posteriorly and dependently, there are some crackles present. No prolonged expiratory phase or wheezing appreciated. HEART: Normal rate. Regular. ABDOMEN: Soft, nontender, and nondistended. Bowel sounds are positive. MUSCULOSKELETAL: No cyanosis or clubbing. There is 3+ pitting in bilateral lower extremities. NEUROLOGIC: Grossly nonfocal. LABORATORY DATA: Creatinine 3.55, which is close to baseline, and BUN 95. Basic metabolic profile is otherwise unremarkable. Troponin is downtrending to 0.537. BNP is in historic high of 4400. Lactate negative. Liver function studies are unremarkable except for a CK of 381. WBC is normal x2, hemoglobin 7.5 and downtrending, and platelets 222,000. Urinalysis is negative. Blood cultures x2 , urine culture, influenza A and B are unremarkable. IMAGING STUDIES: 1. Chest x-ray shows bibasilar infiltrates. He has a little bit more dense on the left side. There is possibly a pleural parenchymal opacification on the left side, consistent with a very small effusion. He has Mariann B lines, and fluid in the fissure. Cephalization is noted. There is a widened carinal angle suggestive of left atrial dilation and/or mediastinal lymphadenopathy. 2. V/Q scan shows near normal perfusion and ventilation studies with no convincing evidence for pulmonary embolism. 3. CT of the brain demonstrates no acute intracranial abnormality. ASSESSMENT: 1. Acute on chronic systolic heart failure. 2. Chronic kidney disease. 3. Lymphoma, status post recent chemotherapy. 4. Volume overload. 5. Anemia. DISCUSSION AND PLAN: We will give him a couple units of blood. I will also introduce some Lasix to see if we can facilitate volume reduction. Antibiotics will be converted over to p.o. equivalents in order to minimize our fluid administration. The patient will remain in the IMCU for the time being. If his creatinine continues to go up with diuresis, ultrasound of lower extremities and dialysis will be considered. Pulmonary Critical Care will continue to follow along in this location. 70 minutes have been devoted to this patient in various activities. I personally reviewed all imaging studies and laboratory data noted within this document. For fifty percent of this time, I was interacting with the patient at the bedside or coordinating care with the care team. For the remainder of the time I was immediately available to the patient in the hospital unit. Job ID: [id number] MTDD
--- NOTE | 2019-03-27 19:53 | CON ---
DATE OF CONSULTATION: HISTORY OF PRESENT ILLNESS: The patient is an unfortunate 68-year-old gentleman with a long history of coronary artery disease and ischemic cardiomyopathy, who presents with increasing dyspnea. The patient also is being treated for lymphoma. The patient has previously undergone coronary bypass graft surgery in 2006. He subsequently underwent PTCA and stent placement into a ramus graft in 2010. He underwent another cardiac catheterization, which revealed patent grafts with occluded bois forte vessels. The patient has a known cardiomyopathy. His most recent echocardiogram revealed him to have a moderate decreased left ventricular ejection fraction 35% to 40%. The patient also has chronic renal insufficiency. He has been in the hospital on several occasions for chest discomfort and dyspnea. He was in his usual state of health when he stopped taking his aspirin. He states that yesterday he started developing midsternal chest discomfort across the middle of his chest. He presented to the emergency room for further evaluation. PAST MEDICAL HISTORY: 1. Coronary artery disease. 2. Congestive heart failure. 3. Lymphoma. 4. Diabetes mellitus. 5. Hypertension. 6. Dyslipidemia. PAST SURGICAL HISTORY: Coronary artery bypass surgery, cholecystectomy. ALLERGIES: PENICILLIN. SOCIAL HISTORY: Nonsmoker. MEDICATIONS ON ADMISSION: 1. Aspirin 325 daily. 2. Lipitor 20 at bedtime. 3. Coreg 25 b.i.d. 4. Finasteride 5 daily. 5. Lasix 40 daily. 6. Allopurinol 200 b.i.d. 7. Florastor 250 mg daily. REVIEW OF SYSTEMS: Ten-point system noticeable for also for abdominal discomfort. Otherwise unremarkable. PHYSICAL EXAMINATION: GENERAL: Ill-appearing gentleman, in no acute distress. VITAL SIGNS: Blood pressure 136/85, heart rate was 110. NECK: Full. LUNGS: Few scattered crackles. HEART: Regular rate and rhythm. Normal S1, S2. 1/6 systolic murmur. ABDOMEN: Nondistended. EXTREMITIES: Showed moderate bilateral edema. Vascular and radial pulses are 2 +. LABORATORY DATA: Sodium 140, potassium 4.2, chloride 107, bicarbonate 25, BUN 95, creatinine 3.55. White blood cell count 6.8, hemoglobin 7.5, hematocrit 22.3, platelets are 222. His EKG revealed him to have normal sinus rhythm with a T- wave abnormality suggestive of lateral ischemia. IMPRESSION: 1. Non-Q-wave myocardial infarction. 2. History of coronary bypass surgery. 3. Ischemic cardiomyopathy. 4. Lymphoma. 5. Renal insufficiency. 6. History of coronary artery bypass graft surgery. 7. Diabetes mellitus. 8. Hypertension. 9. Dyslipidemia. 10. Possible pneumonia. PLAN: This gentleman presents with non-Q-wave myocardial infarction. From a cardiac standpoint, this happened when he discontinued his aspirin. The patient is being restarted on aspirin. We recommend he also get back on his Coreg. With the patient's overall poor health, we will continue to treat the patient medically. We will follow this patient with you through his hospitalization. Job ID: [id number] DENISA
[2019-03-27] MEDS: Atorvastatin Calcium 20 MG TAB PO SCH (20:29)
[2019-03-27] MEDS: Cefdinir 300 MG CAP PO SCH (20:29)
[2019-03-27] MEDS ORDERED: cefTRIAXone\\ROCEPHIN 1 GM in Sodium Chloride 0.9% 100 ML IVPB SCH (21:00)
[2019-03-28] MEDS: HYDROcodone/Acetaminophen 5/325 mg Tablet PO PRN (04:06)
[2019-03-28 04:25] VITALS: BP 142/83
[2019-03-28 04:28] LABS: #Lymphocytes 0.4 thou/uL (1.20-3.40); #Monocytes 0.1 thou/uL (0.11-0.59); #Neutrophils 2.7 thou/uL (1.40-6.50); %Basophils 0.3 % (0.0-1.0); %Eosinophils 0.4 % (0.0-10.0); %Lymphocytes 13.1 % (21.0-51.0); %Monocytes 1.6 % (0.0-10.0); %Neutrophils 84.6 % (42.0-75.0); Hemoglobin 8.5 g/dL (14.0-18.0); Mean Corpuscular HGB CONC 33.8 g/dL (32.0-36.0); Mean Corpuscular Hemoglobin 32.9 pg (27.0-31.0); Mean Corpuscular Volume 97.3 fL (78.0-98.0); Platelet Count 165 thou/uL (130-400); Red Blood Cell (RBC) Count 2.58 mill/uL (4.70-6.10); White Blood Cell (WBC) Count 3.2 thou/uL (4.8-10.8)
[2019-03-28 04:56] LABS: Anion Gap 13 mmol/L (10-20); BUN (Urea Nitrogen) 88 mg/dL (8.4-25.7); Calc. Creatinine Clearance 23 mL/min (70-130); Calcium 8.1 mg/dL (7.8-10.44); Carbon Dioxide 24 mmol/L (23-31); Chloride 107 mmol/L (98-107); Estimated GFR-MDRD 17; Glucose 165 mg/dL (80-115); Iron 45 ug/dL (65-175); Iron Binding Capacity, Total 196 mcg/dL (261-462); Potassium 4.3 mmol/L (3.5-5.1); Sodium 140 mmol/L (136-145)
[2019-03-28] MEDS: HumaLOG 300 UNITS/3 ML VIAL SC PRN ×4 (05:52→21:36)
[2019-03-28] MEDS: Furosemide 100 MG/10 ML VIAL SLOW IVP SCH (05:52)
[2019-03-28] MEDS: Azithromycin 250 MG TAB PO SCH (08:53)
[2019-03-28] MEDS: Carvedilol 25 MG TAB PO SCH ×2 (08:53→16:48)
[2019-03-28] MEDS: Cefdinir 300 MG CAP PO SCH ×2 (08:53→21:01)
[2019-03-28] MEDS: Heparin 5,000 UNITS/ML VIAL SC SCH ×3 (08:54→21:00)
[2019-03-28] MEDS: Aspirin 81 mg Enteric Coated Tablet PO SCH (08:54)
[2019-03-28] MEDS ORDERED: Aspirin 325 MG TAB PO SCH (09:00)
--- NOTE | 2019-03-28 11:44 | PQF ---
DATE: 03-28-19 ATTN: DR. MATILDA MAHAJAN Please exercise your independent, professional judgment in responding to the clarification form. Clinical indicators are provided on the bottom of this form for your review Please check appropriate box(es): [ x ] Sepsis due to: (Pna, etc.) [ ] Severe sepsis with acute organ dysfunction of: (Examples: acute kidney failure, other) [ ] Localized infection without sepsis [ ] Other diagnosis [ ] Unable to determine In addition, please specify: Present on Admission (POA): [ x ] Yes [ ] No [ ] Unable to determine For continuity of documentation, please document condition throughout progress notes and discharge summary. Thank You. CLINICAL INDICATORS - SIGNS / SYMPTOMS / LABS ER DX: SEPSIS, FLUID OVERLOAD, NSTEMI, POSSIBLE PE H&P: POSSIBLE PNEUMONIA, CHRONIC NORMOCYTIC ANEMIA. THIS IS LIKELY 2/2 TO UNDERLYING ESRD, HYPONATREMIA, HYPERKALEMIA, CKD, NONSTEMI LIKELY TYPE 2 WBC: 03-28-19: 3.2 MAR: 03-27-19: OMNICEF PO, 03-27-19: ZITHROMAX IV, ROCEPHIN IV RISK FACTORS: ER DX: SEPSIS, FLUID OVERLOAD, NSTEMI, POSSIBLE PE ER: WEAKNESS, RECENTLY ADMITTED TO THE HOSPITAL FOR PNEUMONIA H&P: CHRONIC NORMOCYTIC ANEMIA, UNCONTROLLED D, B CELL LYMPHOMA ADVANCED AGE TREATMENTS: MAR: 03-27-19: OMNICEF PO, 03-27-19: ZITHROMAX IV, ROCEPHIN IV (This form is maintained as a part of the permanent medical record) 2015 [employer] All Rights Reserved [email or web address] [email or web address] Office: [phone] DENISA
--- NOTE | 2019-03-28 11:56 | PQF ---
DATE: 03-28-19 ATTN: DR. MATILDA MAHAJAN Please exercise your independent, professional judgment in responding to the clarification form. Clinical indicators are provided on the bottom of this form for your review Please check appropriate box(s): Conflicting documentation was noted in the Medical Record, please clarify if patient is being treated/monitored for: [ x ] CKD 4 WITH CHAD [ ] ESRD [ ] Other diagnosis [ ] Unable to determine In addition, please specify: Present on Admission (POA): [ x ] Yes [ ] No [ ] Unable to determine For continuity of documentation, please document condition throughout progress notes and discharge summary. Thank You. CLINICAL INDICATORS - SIGNS / SYMPTOMS/ LABS: ER DX: SEPSIS, FLUID OVERLOAD, NSTEMI, POSSIBLE PE H&P: CHRONIC NORMOCYTIC ANEMIA, THIS IS LIKELY 2/2 UNDERLYING END STAGE RENAL DISEASE CONSULT NOTE DR. ESCAMILLA 03-26-19: CKD4 WITH CHAD AND HYPERKALEMIA RISK FACTORS: ER: HX LYMPHOMA, CHEMO, RENAL INSUFF, DM 2, CAD, HTN, CABG TREATMENT: CONSULT NEPHRO 03-26-19 DR. ESCAMILLA SERIES OF LABS (This form is maintained as a part of the permanent medical record) 2014 [employer]. All Rights Reserved FLAKO [email or web address] Office: [phone] [facility]
--- NOTE | 2019-03-28 12:44 | PDOC.PN ---
- Subjective Encounter Start Date: 03/28/19 Encounter Start Time: 12:43 Patient seen and examined, states he feels better today, no new issues, faimly at bedside, all questions answered. - Objective Resuscitation Status - Order Detail: 03/26/19 22:53 Resuscitation Status Routine Resuscitation Status: FULL: Full Resuscitation Vital Signs & Weight: Vital Signs (12 hours) Temp Pulse Resp BP Pulse Ox 03/28/19 11:06 97.6 F 03/28/19 08:00 100 03/28/19 07:16 98.0 F 03/28/19 04:00 97.9 F 88 16 142/83 H 99 Weight Weight 181 lb 14.4 oz Most Recent Monitor Data Heart Rate from ECG 93 NIBP 154/87 NIBP BP-Mean 109 Respiration from ECG 17 SpO2 100 I&O: 03/27/19 03/28/19 03/29/19 06:59 06:59 06:59 Intake Total 460 1330 Output Total 1075 4000 800 Balance -615 -2670 -800 Result Diagrams: 03/28/19 04:20 03/28/19 04:20 Additional Labs: Accuchecks 03/28/19 03/28/19 03/27/19 10:38 05:47 20:52 POC Glucose 184 H 166 H 235 H 03/27/19 16:30 POC Glucose 147 H Phys Exam - Physical Examination Constitutional: NAD HEENT: PERRLA, moist MMs, sclera anicteric Neck: no nodes, no JVD, supple Respiratory: no wheezing, no rales, no rhonchi Cardiovascular: RRR, no significant murmur, no rub Gastrointestinal: soft, non-tender, no distention, positive bowel sounds Musculoskeletal: pulses present, edema present (trace) Dx/Plan (1) B-cell lymphoma of extranodal site Code(s): C85.19 - UNSP B-CELL LYMPHOMA, EXTRANODAL AND SOLID ORGAN SITES Status: Acute (2) Chest pain, rule out acute myocardial infarction Code(s): R07.9 - CHEST PAIN, UNSPECIFIED Status: Acute (3) B-cell lymphoma Code(s): C85.10 - UNSPECIFIED B-CELL LYMPHOMA, UNSPECIFIED SITE Status: Chronic Comment: pt receiving chemotherapy (4) Bone metastases Code(s): C79.51 - SECONDARY MALIGNANT NEOPLASM OF BONE Status: Chronic (5) Chronic kidney disease, stage 4 (severe) Code(s): N18.4 - CHRONIC KIDNEY DISEASE, STAGE 4 (SEVERE) Status: Chronic Comment: stable, present on admission (6) Chronic systolic CHF, NYHA class 2 and KHURRAM/AHA stage C Code(s): I50.22 - CHRONIC SYSTOLIC (CONGESTIVE) HEART FAILURE Status: Chronic Comment: last ECHO 01/18-EF 35-40% (7) DM2 (diabetes mellitus, type 2) Status: Chronic Comment: controlled (8) HLD (hyperlipidemia) Code(s): E78.5 - HYPERLIPIDEMIA, UNSPECIFIED Status: Chronic Comment: on statin (9) HTN (hypertension) Code(s): I10 - ESSENTIAL (PRIMARY) HYPERTENSION Status: Chronic Comment: Control inadequate (10) Hx of CABG Status: Chronic - Plan * cont medical management * pending oncology evaluation * transfer to floor today * ACS to be managed medically for now * subspecialists following * DC plans in 24-48hrs once cleared by subspecialists and if patient feeling better * case and plan d/w patient and family at length, they understood and agreed with this plan
--- NOTE | 2019-03-28 14:08 | PRG ---
DATE OF SERVICE: 03/28/2019 SUBJECTIVE: Patient was seen and examined at bedside and overnight events noted. Patient denies any shortness of breath or chest pain or palpitation. No history of nausea or vomiting or diarrhea or fever or chills or cramps. OBJECTIVE: GENERAL: This is a well-built male, in no apparent distress. VITAL SIGNS: Temperature 97.6. Heart rate 82. Respiratory rate 18. Blood pressure 148/78. HEENT: Atraumatic, normocephalic. Oral mucosa is moist NECK: Supple. CARDIOVASCULAR: S1, S2 heard. Rate and rhythm regular. RESPIRATORY: Clear to auscultation. GASTROINTESTINAL: Abdomen is soft. MUSCULOSKELETAL: No tenderness. No edema. DERMATOLOGIC: No skin rash. NEUROLOGIC: Alert and awake and oriented X3. No focal neurologic deficits. Moving all the extremities. PSYCHIATRIC: Mood and affect normal. LABORATORY DATA: Potassium 4.3, BUN is 88, creatinine is 3.5. ASSESSMENT AND PLAN: 1. Chronic kidney disease, stage 4, stable. 2. Edema. 3. Hypertension. 4. History of congestive heart failure. 5. Hyperkalemia, better. Renal function is stable. Avoid nephrotoxins and need for close followup as outpatient. Job ID: [id number]
--- NOTE | 2019-03-28 15:58 | PDOC.CTH ---
Cardiology Progress Note - Subjective Pt with no complaints this am - Objective Vital Signs Temp Pulse Resp BP Pulse Ox 03/28/19 15:13 98.1 F 03/28/19 11:06 97.6 F 03/28/19 08:00 100 03/28/19 07:16 98.0 F 03/28/19 04:00 97.9 F 88 16 142/83 H 99 Weight 181 lb 14.4 oz 03/27/19 03/28/19 03/29/19 06:59 06:59 06:59 Intake Total 460 1330 Output Total 1075 4000 1550 Balance -287 -9167 -8000 - Physical Examination General/Neuro: alert & oriented x3, NAD Neck: carotid US brisk, no JVD present Lungs: unlabored respirations Heart: RRR Abdomen: NT/ND, soft Extremities: + femoral B - Labs Result Diagrams: 03/28/19 04:20 03/28/19 04:20 Troponin/CKMB CK-MB (CK-2) 8.4 ng/mL (0-6.6) H* 03/26/19 16:31 Troponin I 0.537 ng/mL (< 0.028) H* 03/26/19 22:29 - Assessment/Plan CP SOB Pneumonia CAD s/p CABG Lymphoma Pt with previous echo with healed vegetation vs redundant cord. BC so far negative. No plans on SUNDAY if contunue to be negative Treat empirically Off ASA for scheduled spine procedure Resume ASA No further recommendations
--- NOTE | 2019-03-28 16:25 | PRG ---
DATE OF SERVICE: 03/28/2019 SERVICE: Pulmonary Medicine. INTERVAL HISTORY: The patient is breathing much better today. He denies any current chest pain, fevers, chills, shortness of breath, nausea, or vomiting. With 1 unit of blood, his hemoglobin jumped up to 8.5. He denies any lightheadedness or chest discomfort. Otherwise, he is returning to his usual state of health. PHYSICAL EXAMINATION: VITAL SIGNS: Afebrile. Pulse 78, blood pressure 154/79, respirations 13, and saturations 96% on room air. GENERAL: The patient is awake and alert, in no apparent distress. LUNGS: Excellent air entry. No prolonged expiratory phase or wheezing is appreciated. HEART: Normal rate regular. ABDOMEN: Soft, nontender, and nondistended. Bowel sounds are positive. MUSCULOSKELETAL: No cyanosis or clubbing. There is 2+ pitting in the bilateral lower extremities, which is dramatically improved. : No Connor. NEUROLOGIC: Grossly nonfocal. LABORATORY DATA: WBC 3.2, hemoglobin 8.5, and platelets 165,000. Creatinine 3.52, which is roughly stable. BUN 88, and downtrending; bicarb 24 and within the normal limits. Ferritin is elevated, iron 45, TIBC 196. Blood cultures x2, urine culture, and influenza A and B are unremarkable. ASSESSMENT: 1. Acute on chronic systolic heart failure. 2. Chronic kidney disease, stage IV. 3. Lymphoma, status post recent chemotherapy. 4. Anemia of chronic disease. DISCUSSION AND PLAN: The patient is doing fine from respiratory standpoint. At this point, he is stable for transition to the telemetry unit. When he arrives there, he will have no further requirements for inpatient Pulmonary Critical Care opinion, and I will sign off. Please call with additional questions or concerns through time. Job ID: [id number]
[2019-03-28] MEDS: Atorvastatin Calcium 20 MG TAB PO SCH (21:01)
--- NOTE | 2019-03-28 23:02 | CON ---
DATE OF CONSULTATION: REASON FOR CONSULTATION: Lymphoma. HISTORY OF PRESENT ILLNESS: Mr. Young is a very pleasant 68-year-old male who has stage IV diffuse large B-cell lymphoma. He was a double expressor and ABC type. He was started on a dose-reduced EPOCH-R. Adriamycin and Cytoxan were dose reduced for worsening kidney function. Unfortunately, his EF dropped to 30% to 35%, and so he was changed to Rituxan, gemcitabine, and Cytoxan and vincristine. He received day 1 cycle 2 on March 21. He was due for day 2 of cycle 2 today. There was also planned intrathecal methotrexate via lumbar puncture this week. Unfortunately, this weekend, he presented to the ER with shortness of breath. He has been diagnosed with possible pneumonia and was started on antibiotics. He also had chest pain and was given aspirin, which was being held for his LP. He had bilateral lower extremity edema and has been diuresed with significant weight loss. PAST MEDICAL HISTORY: 1. Stage IV diffuse large B-cell lymphoma. 2. Hypertension. 3. Coronary artery disease. 4. Chronic kidney disease, stage 4. 5. Type 2 diabetes. 6. Hyperlipidemia. PAST SURGICAL HISTORY: 1. CABG x4. 2. Retinal detachment surgery in 2017. 3. Cholecystectomy. ALLERGIES: TO PENICILLIN. HOME MEDICATIONS: 1. Allopurinol 100 mg b.i.d. 2. Amlodipine 5 mg daily. 3. Aspirin 325 daily. 4. Atorvastatin 20 mg daily. 5. Carvedilol 25 mg daily. 6. Finasteride 5 mg daily. FAMILY HISTORY: Father had thyroid cancer. Brother had pancreatic cancer. No history of lymphoma. SOCIAL HISTORY: , has 4 children. Lives with his spouse. A 30 pack- year history of smoking. Quit smoking in the 90s. No alcohol or illicit drug use. REVIEW OF SYSTEMS: CONSTITUTIONAL: No fever, chills, or night sweats. EYES: No blurred or double vision. ENT: No pain hoarseness, sore throat, dysphagia. CV: No chest pain, palpitations, or syncope. RESPIRATORY: Positive for shortness of breath. GI: No nausea, vomiting, diarrhea, constipation, or abdominal pain. : No dysuria or hematuria. MUSCULOSKELETAL: Positive for back pain. SKIN: No rash or pruritus. HEMATOLOGIC: No bleeding, bruising, or clotting. NEUROLOGIC: No headaches, numbness, tingling, or seizure activity. PSYCH: No anxiety or depression. PHYSICAL EXAMINATION: VITAL SIGNS: Temperature is 98.1, pulse is 78, respiratory rate is 13, he is 154/79. General: A chronically ill-appearing male, in no acute distress. HEENT: Normocephalic and atraumatic. Pupils are equal and reactive to light. NECK: Supple. CV: Regular rate and rhythm. LUNGS: Clear anterior. ABDOMEN: Soft and nontender. Bowel sounds are positive. EXTREMITIES: He has 2+ bilateral lower extremity edema. SKIN: No rash. HEMATOLOGIC: He has scattered bruising. NEUROLOGIC: Nonfocal. PSYCH: The patient is alert, oriented, and appropriate. PERTINENT LABS AND X-RAYS: Current WBCs are 3.2, hemoglobin 8.5, hematocrit 25.1, platelet count is 165,000, 84% neutrophils, and 13% lymphocytes. Sodium is 140, potassium 4.3, chloride 107, CO2 is 24, BUN is 88, and creatinine 3.52. Lactic acid is 1.7. Calcium 8.1. Iron 45, TIBC 196, iron saturation 23, ferritin is 1500. CK-MB was 8.4. Troponin is 0.537. BNP was 4424. Total bilirubin 0.4, AST is 29, ALT is 40, alkaline phosphatase is 83. Serum total protein 4.5, albumin 2.6, and globulin 1.9. ASSESSMENT: 1. Possible pneumonia. 2. Congestive heart failure. 3. Chronic kidney disease, 4. 4. Diffuse large B-cell lymphoma. DISCUSSION: The patient's chemotherapy has been held. His LP will be rescheduled. He continues on the aspirin at this time. Case will be discussed with Dr. De Jesus , and he will follow up in the outpatient setting to resume chemo. Thank you for the consult. Job ID: [id number] MTDD
[2019-03-29] MEDS: HYDROcodone/Acetaminophen 5/325 mg Tablet PO PRN (02:30)
[2019-03-29] MEDS: Furosemide 100 MG/10 ML VIAL SLOW IVP SCH (07:26)
[2019-03-29 08:03] LABS: #Lymphocytes 0.2 thou/uL (1.20-3.40); #Monocytes 0.1 thou/uL (0.11-0.59); %Eosinophils 1.5 % (0.0-10.0); %Lymphocytes 10.2 % (21.0-51.0); %Neutrophils 85.3 % (42.0-75.0); Mean Corpuscular Volume 96.9 fL (78.0-98.0); Mean Platelet Volume 8.3 fL (7.4-10.4); Platelet Count 146 thou/uL (130-400); RBC Distribution Width 15.8 % (11.5-14.5); Red Blood Cell (RBC) Count 2.44 mill/uL (4.70-6.10); White Blood Cell (WBC) Count 2.4 thou/uL (4.8-10.8)
[2019-03-29 08:21] LABS: Anion Gap 13 mmol/L (10-20); BUN (Urea Nitrogen) 73 mg/dL (8.4-25.7); Calc. Creatinine Clearance 26 mL/min (70-130); Calcium 8.1 mg/dL (7.8-10.44); Carbon Dioxide 26 mmol/L (23-31); Chloride 108 mmol/L (98-107); Estimated GFR-MDRD 20; Glucose 133 mg/dL (80-115); Potassium 3.6 mmol/L (3.5-5.1); Sodium 143 mmol/L (136-145); Uric Acid 8.6 mg/dL (3.5-7.2)
[2019-03-29] MEDS: Azithromycin 250 MG TAB PO SCH (08:49)
[2019-03-29] MEDS: Cefdinir 300 MG CAP PO SCH (08:49)
[2019-03-29] MEDS: Aspirin 81 mg Enteric Coated Tablet PO SCH (08:49)
[2019-03-29] MEDS: Carvedilol 25 MG TAB PO SCH (08:49)
[2019-03-29] MEDS: Heparin 5,000 UNITS/ML VIAL SC SCH (08:50)
--- NOTE | 2019-03-29 10:12 | PRG ---
DATE OF SERVICE: 03/29/2019 SUBJECTIVE: Patient was seen and examined at bedside and overnight events noted. Patient denies any shortness of breath or chest pain or palpitation. No history of nausea or vomiting or diarrhea or fever or chills or cramps. OBJECTIVE: GENERAL: This is a well-built male, in no apparent distress. VITAL SIGNS: Temperature 99.7. Heart rate 91. Respiratory rate 20. Blood pressure 136/96. HEENT: Atraumatic, normocephalic. Oral mucosa is moist NECK: Supple. CARDIOVASCULAR: S1, S2 heard. Rate and rhythm regular. RESPIRATORY: Clear to auscultation. GASTROINTESTINAL: Abdomen is soft. MUSCULOSKELETAL: No tenderness. No edema. DERMATOLOGIC: No skin rash. NEUROLOGIC: Alert and awake and oriented X3. No focal neurologic deficits. Moving all the extremities. PSYCHIATRIC: Mood and affect normal. LABORATORY DATA: Potassium 3.6, BUN is 73, and creatinine is 3.05. ASSESSMENT AND PLAN: 1. Chronic kidney disease, stage 4, stable. 2. Edema. 3. Hypertension, monitor. 4. Hyperkalemia, better. Limit potassium intake. Overall renal function is stable. We will follow. Job ID: [id number]
[2019-03-29 10:38] VITALS: TEMP 98.2
--- NOTE | 2019-03-29 12:09 | PDOC.EVN ---
Event Note - Event Note Event Note: DC SUMMARY #[id number]
[2019-03-29] MEDS: HumaLOG 300 UNITS/3 ML VIAL SC PRN (12:36)
--- NOTE | 2019-03-30 02:58 | DIS ---
DATE OF ADMISSION: 03/26/2019 DATE OF DISCHARGE: 03/29/2019 ADMITTING DIAGNOSES: Sepsis; lymphoma, on chemotherapy; shortness of breath, coronary artery disease. DISCHARGE DIAGNOSES: 1. Sepsis resolved. 2. Shortness of breath, resolved. 3. Lymphoma. 4. Coronary artery disease. HOSPITAL COURSE: This is a 68-year-old male who was admitted with past medical history as stated above to the Internal Medicine Team, was found to have questionable sepsis, admitted to the Internal Medicine Team, started on broad-spectrum antibiotics. The patient's white count at point in time was 6.1, and at point in time of discharge, the patient was feeling well with no complaints. The patient was evaluated by the Internal Medicine Team, Nephrology, Cardiology, Critical Care, as well as Oncology Services, cleared for discharge from all subspecialties. The patient was given Omnicef and azithromycin to be completed for a 5-day regimen. The patient at point in time of discharge was stable, stated that he felt back to normal, was given 2 units of blood transfusion during his stay in the hospital as well. The patient was to follow up with his PCP and Oncology within 1 week for further management and care. Finish the antibiotics as prescribed. DISPOSITION: Home. FOLLOWUP: Follow up with PCP within 1 to 2 weeks. MEDICATIONS: See MAR. ACTIVITY: As tolerated with assistance as needed. DIET: Low-fat, low-calorie, high-fiber diet. CONDITION: Stable. PROGNOSIS: Good. Case and plan again discussed with the patient at length. He understood and agreed with this plan. at bedside, she agreed as well. Job ID: [id number]
== END 2019-03-29 14:18 | disposition home or self-care (01) | DRG 871 ==
LOC: ERS 15:58 → IMCU/EMU 19:10
PROVIDERS: ADMIT Hospitalist; ATTEND Hospitalist
DX: A41.9 Sepsis, unspecified organism (principal); J18.9 Pneumonia, unspecified organism; I50.23 Acute on chronic systolic (congestive) heart failure; I21.4 Non-ST elevation (NSTEMI) myocardial infarction; N17.9 Acute kidney failure, unspecified; N18.4 Chronic kidney disease, stage 4 (severe); I13.0 Hypertensive heart and chronic kidney disease with heart failure and stage 1 through stage 4 chronic kidney disease, or unspecified chronic kidney disease; E87.1 Hypo-osmolality and hyponatremia; C85.10 Unspecified B-cell lymphoma, unspecified site; C79.51 Secondary malignant neoplasm of bone; I25.10 Atherosclerotic heart disease of native coronary artery without angina pectoris; I25.5 Ischemic cardiomyopathy; E78.00 Pure hypercholesterolemia, unspecified; E87.5 Hyperkalemia; E11.22 Type 2 diabetes mellitus with diabetic chronic kidney disease; D63.1 Anemia in chronic kidney disease; E11.65 Type 2 diabetes mellitus with hyperglycemia; Z95.5 Presence of coronary angioplasty implant and graft; Z90.49 Acquired absence of other specified parts of digestive tract; Z95.1 Presence of aortocoronary bypass graft; Z88.0 Allergy status to penicillin; Z79.899 Other long term (current) drug therapy
CPT/HCPCS: 36415; 36416; 36430; 70450; 71046; 78582; 80048; 80053; 81003; 81015; 82550; 82553; 82728; 83540; 83550; 83605; 83615; 83880; 84484; 84550; 85025; 86850; 86900; 86901; 87040; 87086; 87804; 93005; 96365; 96375; A9540; A9558; J0456; J0696; J1642; J1644; J1940; J3490; J7050; P9016

== ENCOUNTER 2019-04-04 13:18 | Day surgery (SDC) | payer MEDICARE, OTHER ==
[~2019-04-04 13:18] MED LIST changes: -Acetaminophen 500 MG TAB PO PRN; -CYCLOPHOSPHAMIDE IVPB SCH; -DEXAMETHASONE SOD PHOSPHATE IVPB SCH; -ONDANSETRON IVPB SCH; +Ondansetron 2MG/ML MDV 10 MG in Sodium Chloride 0.9% 50 ML IVPB SCH; -Rituximab 500 MG, Rituximab 200 MG in Sodium Chloride 0.9% 500 ML IVPB SCH; -[UNRECOGNIZED DRUG - OTHER] IVPB SCH; -diphenhydrAMINE 25 MG in Sodium Chloride 0.9% 50 ML IVPB SCH; -vinCRIStine Sulfate 2 MG in Sodium Chloride 0.9% 50 ML IVPB SCH
[2019-04-04] MEDS ORDERED: Acetaminophen 500 MG TAB PO SCH (13:45)
[2019-04-04] MEDS ORDERED: Furosemide 40 MG/4 ML VIAL SLOW IVP SCH ×2 (13:45→16:00)
[2019-04-04] MEDS ORDERED: diphenhydrAMINE 25 MG CAP PO SCH (13:45)
[2019-04-04 21:36] VITALS: BP 162/89; TEMP 97.7
== END 2019-04-04 21:30 | disposition home or self-care (01) ==
LOC: ONC/OP 13:18
PROVIDERS: ATTEND Internal Medicine Hematology & Oncology
PROC: 30233N1 Transfusion of Nonautologous Red Blood Cells into Peripheral Vein, Percutaneous Approach (ICD-10-PCS; principal; 2019-04-04)
DX: D64.9 Anemia, unspecified (principal); D69.6 Thrombocytopenia, unspecified; Z88.0 Allergy status to penicillin
CPT/HCPCS: 36430; 86850; 86900; 86901; 96375; J1940; J2405; J7050; P9016; Q0163

== ENCOUNTER 2019-04-18 10:42 | Day surgery (SDC) | payer MEDICARE, OTHER ==
[~2019-04-18 10:42] MED LIST changes: +Acetaminophen 500 MG TAB PO SCH; +CYCLOPHOSPHAMIDE IVPB SCH; +DEXAMETHASONE SOD PHOSPHATE IVPB SCH; +GEMCITABINE HCL IVPB SCH; +ONDANSETRON IVPB SCH; +Rituximab 500 MG, Rituximab 200 MG in Sodium Chloride 0.9% 500 ML IVPB SCH; +[UNRECOGNIZED DRUG - OTHER] IVPB SCH; +diphenhydrAMINE 25 MG in Sodium Chloride 0.9% 50 ML IVPB SCH; +vinCRIStine Sulfate 2 MG in Sodium Chloride 0.9% 50 ML IVPB SCH
[2019-04-18] MEDS ORDERED: Sodium Chloride 0.9% 20 ML ONE (10:58)
[2019-04-18 11:09] VITALS: TEMP 97.5
[2019-04-18] MEDS ORDERED: [UNRECOGNIZED DRUG - OTHER] IVPB SCH (11:30)
[2019-04-18] MEDS ORDERED: ONDANSETRON IVPB SCH (11:30)
[2019-04-18] MEDS ORDERED: DEXAMETHASONE SOD PHOSPHATE IVPB SCH (11:30)
[2019-04-18] MEDS ORDERED: Rituximab 500 MG, Rituximab 200 MG in Sodium Chloride 0.9% 500 ML IVPB SCH (11:45)
[2019-04-18] MEDS ORDERED: CYCLOPHOSPHAMIDE IVPB SCH (11:45)
[2019-04-18] MEDS ORDERED: vinCRIStine Sulfate 2 MG in Sodium Chloride 0.9% 50 ML IVPB SCH (11:45)
[2019-04-18] MEDS ORDERED: GEMZAR IVPB SCH ×2 (11:45)
[2019-04-18] MEDS ORDERED: SODIUM CHLORIDE 0.9% IVPB SCH ×3 (11:45)
[2019-04-18 13:20] VITALS: BP 164/92
== END 2019-04-18 16:52 | disposition home or self-care (01) ==
LOC: ONC/OP 10:42
PROVIDERS: ATTEND Internal Medicine Hematology & Oncology
DX: Z51.11 Encounter for antineoplastic chemotherapy (principal); C83.39 Diffuse large B-cell lymphoma, extranodal and solid organ sites; Z88.0 Allergy status to penicillin
CPT/HCPCS: 80053; 82248; 83615; 84100; 84550; 96375; 96411; 96413; 96415; 96417; J1100; J1200; J1642; J2405; J7050; J9070; J9201; J9310; J9312; J9370

== ENCOUNTER 2019-04-26 09:20 | Day surgery (SDC) | payer MEDICARE, OTHER ==
[~2019-04-26 09:20] MED LIST changes: -Acetaminophen 500 MG TAB PO SCH; -CYCLOPHOSPHAMIDE IVPB SCH; -GEMCITABINE HCL IVPB SCH; -Rituximab 500 MG, Rituximab 200 MG in Sodium Chloride 0.9% 500 ML IVPB SCH; -diphenhydrAMINE 25 MG in Sodium Chloride 0.9% 50 ML IVPB SCH; -vinCRIStine Sulfate 2 MG in Sodium Chloride 0.9% 50 ML IVPB SCH
[2019-04-26] MEDS ORDERED: SODIUM CHLORIDE 0.9% IVPB SCH (09:45)
[2019-04-26] MEDS ORDERED: GEMZAR IVPB SCH (09:45)
[2019-04-26 09:47] VITALS: BP 121/60; TEMP 97.7
[2019-04-26] MEDS ORDERED: Sodium Chloride 0.9% 20 ML ONE (10:26)
== END 2019-04-26 10:54 | disposition home or self-care (01) ==
LOC: ONC/OP 09:20
PROVIDERS: ATTEND Internal Medicine Hematology & Oncology
DX: Z51.11 Encounter for antineoplastic chemotherapy (principal); C83.39 Diffuse large B-cell lymphoma, extranodal and solid organ sites; Z88.0 Allergy status to penicillin
CPT/HCPCS: 96375; 96413; J1642; J2405; J7050; J9201

== ENCOUNTER 2019-04-26 15:38 | Inpatient (IN) | payer MEDICARE, OTHER ==
[2019-04-26] MEDS ORDERED: Ondansetron PF 4 MG/2 ML Vial ONE (16:41)
[2019-04-26 16:47] LABS: Hemoglobin 8.5 g/dL (14.0-18.0); Mean Corpuscular HGB CONC 33.9 g/dL (32.0-36.0); Mean Corpuscular Hemoglobin 33.6 pg (27.0-31.0); Mean Corpuscular Volume 99.1 fL (78.0-98.0); Mean Platelet Volume 8.7 fL (7.4-10.4); Platelet Count 57 thou/uL (130-400); RBC Distribution Width 15.2 % (11.5-14.5); Red Blood Cell (RBC) Count 2.52 mill/uL (4.70-6.10); White Blood Cell (WBC) Count 0.6 thou/uL (4.8-10.8)
[2019-04-26 16:54] LABS: ALT (SGPT) 28 U/L (8-55); AST (SGOT) 18 U/L (5-34); Albumin 2.7 g/dL (3.4-4.8); Alkaline Phosphatase 69 U/L (40-150); Anion Gap 16 mmol/L (10-20); BUN (Urea Nitrogen) 79 mg/dL (8.4-25.7); Bilirubin, Total 0.5 mg/dL (0.2-1.2); Calc. Creatinine Clearance 0 mL/min (70-130); Carbon Dioxide 18 mmol/L (23-31); Chloride 110 mmol/L (98-107); Estimated GFR-MDRD 18; Globulin 1.7 g/dL (2.4-3.5); Glucose 256 mg/dL (80-115); Lipase 31 U/L (8-78); Potassium 4.7 mmol/L (3.5-5.1); Protein, Total 4.4 g/dL (5.8-8.1); Sodium 139 mmol/L (136-145)
[2019-04-26 16:57] LABS: Anisocytosis SLIGHT = 6-15 cells (100X) (0-5/hpf); Band 4 % (5-11); Eosinophils 2 % (0-10); Lymphocytes 4 % (21-51); MDiff Complete? YES; Monocytes 2 % (0-10); Neutrophil 88 % (42-75); Platelet Morphology Comment Appears Decreased; Poikilocytosis SLIGHT = 6-15 cells (100X) (0-5/hpf)
[2019-04-26] MEDS ORDERED: Morphine 4 MG/ML VIAL ONE (17:03)
[2019-04-26 17:20] LABS: Bilirubin Negative (Negative); Blood, Urine Moderate (Negative); Clarity CLOUDY (Clear); Glucose, Urine (Dipstick) 500 mg/dL (Negative); Leukocyte Negative (Negative); Nitrite Negative (Negative); Protein, Urine (Dipstick) 300 mg/dL (Neg-Trace); Specific Gravity, Urine 1.014 (1.002-1.036); Urobilinogen 0.2 mg/dL (0.2-1.0); pH, Urine 5.5 (5.0-9.0)
[2019-04-26 17:34] LABS: Bacteria/HPF 1+ HPF (None Seen); Hyaline Casts/LPF NONE SEEN LPF (0-3 Hyaline); Squamous Epithelial 0-3 HPF (0-3); WBC/HPF 0-3 HPF (0-3)
[2019-04-26] MEDS ORDERED: Acetaminophen 500 MG TAB ONE (19:06)
--- NOTE | 2019-04-26 19:13 | CT ---
CT ABDOMEN WITHOUT CONTRAST CT PELVIS WITHOUT CONTRAST: Date: 04/26/19 HISTORY: Pain. COMPARISON: 11/11/18. FINDINGS: ABDOMEN CT: Cardiomegaly with a small amount of pericardial fluid. Coronary artery calcification identified. Athe rosclerosis of a nonaneurysmal aorta. Small left and moderate right-sided effusion. Adjacent lung parenchymal changes are felt to be due to atelectasis. Limited evaluation of the solid organs by the lack of IV contrast. Grossly, no solid organ abnormalit y. Gallbladder appears to be surgically absent. There are small foci of air attenuation in the centra l aspect of the liver that are presumed to be within the biliary system. However, the paucity of port al venous gas cannot be completely excluded. Grossly, the liver, spleen, pancreas, and adrenal glands are unremarkable. Redemonstration of hypodensities in the left and right renal cortex, unchanged in size. For example, there is a stable 2.4 cm hypodensity emanating from the anterior lower aspect of the left kidney. Sta ble partially calcified 2.6 cm hypodensity in the mid portion of the left kidney. Bilaterally, no obs tructive uropathy. No mesenteric mass, lymphadenopathy, or free air. Interval development of stranding of the fat in the left and right perirenal space, as well as fluid in both paracolic gutters. No obvious pneumoperiton eum. Markedly limited evaluation of the alimentary canal due to motion and lack of oral contrast. There ar e fluid-filled loops of small bowel in the left hemiabdomen. There appear to be pockets of air which are presumed to be within the lumen of the bowel. However, possibility of pneumatosis must be exclude d and repeat imaging is recommended with oral and IV contrast. Evaluation is also limited by motion d egradation. Ileocecal junction appears to be unremarkable. Normal caliber appendix. Visualized colon is grossly u nremarkable. Note, the sigmoid colon is mobile and is in the right lower quadrant, previously in the left lower qu adrant. No evidence of volvulus or obstruction. CT PELVIS: Mild prostatic hypertrophy. Unremarkable urinary bladder. No pelvic mass, lymphadenopathy, free air, or free fluid. IMPRESSION: 1. Markedly limited evaluation due to lack of contrast and motion. There does appear to be air in th e abdomen, which is presumed to be in the biliary system in a patient who has presumed recent cholecy stectomy. However, the possibility of portal venous gas cannot be excluded. There are pockets of air noted in slightly fluid-filled loops of small bowel in the left hemiabdomen which are presumed to be intraluminal. The possibility of pneumatosis cannot be completely excluded. Evaluation is limited due to lack of oral and IV contrast, as well as due to motion degradation. Further evaluation with repea t abdomen and pelvis CT utilizing oral and IV contrast recommended. 2. Normal caliber appendix. 3. Redemonstration of bilateral renal hypodensities. No obstructive uropathy. Results of study discussed with Dr. Rodriguez on 04/26/19 at 1706 hours. CODE CR. POS: SANDY
[2019-04-26 20:28] LABS: Lactic Acid 0.9 mmol/L (0.5-2.2)
[2019-04-26] MEDS ORDERED: Acetaminophen 650 MG Suppository PR PRN (21:23)
[2019-04-26] MEDS ORDERED: Acetaminophen 325 MG TAB PO PRN (21:23)
[2019-04-26] MEDS ORDERED: Ondansetron ODT 4 MG TAB PO PRN (21:23)
[2019-04-26] MEDS ORDERED: Vancomycin HCl 500 MG in Sodium Chloride 0.9% 100 ML IVPB SCH (23:15)
[2019-04-26] MEDS: Cefepime 2 GM in Sodium Chloride 0.9% 100 ML IVPB SCH (23:36)
[2019-04-27] MEDS ORDERED: Dextrose 5% in Water 1,000 ML IV PRN (00:59)
[2019-04-27] MEDS ORDERED: HumaLOG 300 UNITS/3 ML VIAL SC PRN (00:59)
[2019-04-27] MEDS ORDERED: Dextrose 50% Abboject 50 ML SYRINGE SLOW IVP PRN (00:59)
--- NOTE | 2019-04-27 02:48 | HP ---
PRIMARY CARE DOCTOR: Tatianna Reid MD CODE STATUS: Full code. TIME OF EVALUATION: 08:40 p.m. CHIEF COMPLAINT: Abdominal pain. HISTORY OF PRESENT ILLNESS: This is a 68-year-old male patient with past medical history of lymphoma, has been getting treatment with Dr. De Jesus. The patient also has a history of CABG x4, diabetes, hypertension, came complaining of abdominal pain mostly in the lower abdomen, and back pain started around 1 p.m. The patient today received chemo and went home, had lunch and when he was taking a nap, started having some nausea, vomiting, and abdominal pain was severe, and for that reason he came to the hospital. There were no clear triggers or alleviating factors. CAT scan was done. It was without contrast due to kidney function and there was some suspicion for pneumatosis. We will repeat the CAT scan with p.o. contrast to see if we can visualize the problem and further plan would be depending on that result. Symptoms were severe with sudden onset. REVIEW OF SYSTEMS: CONSTITUTIONAL: No fever, chills, or generalized weakness. RESPIRATORY: No cough, sputum production, or shortness of breath. CARDIOVASCULAR: No chest pain, palpitation. GASTROINTESTINAL: The patient has nausea, vomiting. No diarrhea or abdominal pain. CENTRAL NERVOUS SYSTEM: No dizziness, headache, or feeling lightheaded. GENITOURINARY: No burning on urination. EXTREMITIES: No leg swelling. All other systems were reviewed and negative except for the findings mentioned above. PAST MEDICAL HISTORY: Positive for the findings mentioned in the HPI. Also has hyperlipidemia, coronary artery disease, status post stent, CHF. PAST SURGICAL HISTORY: The patient had a CABG in 2006, left eye surgery, right eye surgery for retinal detachment, cholecystectomy, cardiac stent placement. PSYCHIATRIC HISTORY: No previous psych history. SOCIAL HISTORY: No alcohol. No drugs. The patient smokes cigarettes, quit more than 10 years ago. KNOWN ALLERGIES: Penicillin. REPORTED MEDICATIONS: 1. Carvedilol. 2. Aspirin. 3. Allopurinol. 4. Zofran. 5. Atorvastatin. 6. Lasix. 7. Finasteride. PHYSICAL EXAMINATION: VITAL SIGNS: On presentation; heart rate 119, temperature 98.6, oxygen saturation 99% on room air, blood pressure 128/93. GENERAL APPEARANCE: The patient is alert, oriented, not in acute distress. HEENT: Eyes, normal conjunctivae. Moist oral mucosa. Anicteric. No JVD. RESPIRATORY: Bilateral air entry. No rales. No wheezes. Symmetric expansion. CARDIOVASCULAR: Normal rate, regular rhythm. No murmurs. No gallop. No edema. ABDOMEN: Soft. Normal bowel sounds. MUSCULOSKELETAL: Baseline range of motion and strength. No tenderness. SKIN: Warm, intact. No pallor. No rash. No redness. VASCULAR: Peripheral pulses are present. Capillary refill seems to be intact. NEUROLOGIC: No evidence of any new focal weakness. Cranial nerves seem to be intact. PSYCHIATRIC: The patient is in good mood. No anxiety. Optimal judgment. DIAGNOSTIC DATA: 1. Abdomen and pelvis CT was done. The patient had markedly limited evaluation due to lack of contrast on motion. There did appear to be air in the abdomen, which was presumed to be in the biliary system in a patient who has presumed recent cholecystectomy. However, the possibility of portal venous gas could not be excluded. There were pockets of air noted in slightly fluid-filled loops of small bowel in the left hemiabdomen, which were presumed to be intraluminal. The possibility of pneumatosis could not be completely excluded. Evaluation was limited due to lack of oral and IV contrast as well as due to motion degradation. Further evaluation with repeat abdomen and pelvis CT utilizing oral and IV contrast is recommended. 2. Normal caliber appendix. 3. Demonstration of bilateral renal hypodensities. No obstructive uropathy. LABORATORY DATA: Reviewed. The patient has a white count of 0.6, hemoglobin 9.5, MCV 99.1, platelet count 57. Chemistry; sodium 139, potassium 4.7, chloride 110, carbon dioxide 18, anion gap 16, BUN 79, creatinine 3.34. GFR 18. Glucose 256. Lactic acid 2.9, repeat was 0.9. Calcium 9.0. LFTs were negative. Serum total protein 4.4, albumin 2.7, globulin 1.7, lipase 31. Urine was done and was negative for infection. ASSESSMENT AND PLAN: The patient will be placed in the hospital with following medical problems: 1. Abdominal pain, unclear etiology. We were doing a CT with p.o. contrast, unable to give IV due to kidney failure, to see if we can rule out or rule in pneumatosis and we will proceed from there. This has been discussed with the family and choices of treatment after results. Otherwise symptomatic treatment as of now. 2. History of lymphoma. Dr. De Jesus will be following the patient, last chemo was yesterday, might need followup of the patient given leukopenia. 3. Chronic macrocytic anemia. This is likely secondary to underlying kidney failure. We will monitor. If this is stable, no need for any acute intervention at this point. 4. Thrombocytopenia. This could be related to sessions of chemo. This will need to be followed up with Oncology. The patient does not have any active bleeding at this point. 5. High anion gap metabolic acidosis. This is likely secondary to underlying chronic kidney disease. We will monitor and treat accordingly. 6. Chronic kidney disease. The last creatinine is all the same than before at 3.54. The GFR is 18, so it is stage 4 chronic kidney disease, we will monitor kidney function, we will treat accordingly. 7. Hyperlipidemia. Low-cholesterol diet is advised, reconcile home medications. 8. Possible systemic inflammatory response syndrome. The patient has been started on antibiotics. We will continue for now. We will follow cultures, we will treat accordingly. 9. Diabetes type 2. There is uncontrolled blood sugar of 256. We will place the patient on sliding scale for optimal control. 10. History of congestive heart failure, reconcile home medications and adjust as needed. 11. Deep venous thrombosis prophylaxis. Job ID: [id number]
[2019-04-27] MEDS: Ondansetron PF 4 MG/2 ML Vial IVP PRN (03:51)
[2019-04-27 05:17] LABS: Anion Gap 11 mmol/L (10-20); BUN (Urea Nitrogen) 78 mg/dL (8.4-25.7); Calc. Creatinine Clearance 23 mL/min (70-130); Calcium 7.6 mg/dL (7.8-10.44); Carbon Dioxide 19 mmol/L (23-31); Chloride 113 mmol/L (98-107); Estimated GFR-MDRD 19; Glucose 173 mg/dL (80-115); Potassium 4.4 mmol/L (3.5-5.1); Sodium 139 mmol/L (136-145)
[2019-04-27] MEDS ORDERED: PEGFILGRASTIM-JMDB 6 MG/0.6 ML SYRINGE SQ SCH (06:00)
[2019-04-27 06:40] LABS: Hemoglobin 7.3 g/dL (14.0-18.0); Mean Corpuscular HGB CONC 34.3 g/dL (32.0-36.0); Mean Corpuscular Volume 99.4 fL (78.0-98.0); Mean Platelet Volume 9.4 fL (7.4-10.4); Platelet Count 41 thou/uL (130-400); RBC Distribution Width 15.3 % (11.5-14.5); Red Blood Cell (RBC) Count 2.16 mill/uL (4.70-6.10); White Blood Cell (WBC) Count 1.6 thou/uL (4.8-10.8)
[2019-04-27 06:45] LABS: Anisocytosis SLIGHT = 6-15 cells (100X) (0-5/hpf); Band 10 % (5-11); Eosinophils 3 % (0-10); Lymphocytes 6 % (21-51); MDiff Complete? YES; Monocytes 1 % (0-10); Neutrophil 80 % (42-75); Platelet Morphology Comment Appears Decreased
--- NOTE | 2019-04-27 07:53 | CT ---
CT ABDOMEN AND PELVIS WITHOUT IV CONTRAST: COMPARISON: Prior exam dated 04/26/2019. FINDINGS: There is worsening moderate and small left pleural effusion and bibasilar atelectasis. Pneumobilia and postsurgical change of a cholecystectomy is stable. A small amount of fluid is seen within Morison's pouch and the gallbladder fossa. There is a 5 mm stone within the region of the spaulding creatic head which was not appreciated on the prior exam. This may reflect a distal common bile duct stone. Unopacified pancreas, adrenal glands, and spleen appear within normal limits. Hypodensities involvin g both kidneys are unchanged. There is moderate calcification involving the abdominopelvic vasculature. The colon is largely decompressed. There are a few scattered diverticula involving the colon. The small bowel is of normal caliber. There is mild diffuse anasarca. There is diffuse osteopenia. There is scattered degenerative and osteoarthritic change. IMPRESSION: 1. New calcific density seen at the region of the pancreatic head may reflect a distal common bile d uct stone. MRCP may be helpful for further evaluation. 2. Stable pneumobilia with recent post cholecystectomy changes. 3. Worsening moderate right pleural effusion. 4. Slight interval worsening of the diffuse anasarca. 5. Stable renal hypodensities. POS: BH
[2019-04-27 08:36] LABS: ALT (SGPT) 25 U/L (8-55); AST (SGOT) 25 U/L (5-34); Albumin 2.3 g/dL (3.4-4.8); Alkaline Phosphatase 57 U/L (40-150); Bilirubin, Direct 0.2 mg/dL (0.1-0.3); Bilirubin, Total 0.5 mg/dL (0.2-1.2); Protein, Total 3.8 g/dL (5.8-8.1)
--- NOTE | 2019-04-27 13:57 | PDOC.PN ---
- Subjective Encounter Start Date: 04/27/19 Encounter Start Time: 07:00 Pt seen for followup re: neutropenic fever. Reports abdo pain is better. has abdo soreness. - Objective Resuscitation Status - Order Detail: 04/26/19 21:23 Resuscitation Status Routine Resuscitation Status: FULL: Full Resuscitation MAR Reviewed: Yes Vital Signs & Weight: Vital Signs (12 hours) Temp Pulse Resp BP BP Pulse Ox 04/27/19 12:47 97.7 F 86 18 150/102 H 97 04/27/19 08:40 97.6 F 87 18 128/69 96 04/27/19 08:00 96 04/27/19 05:00 97.7 F 81 18 141/59 H 98 Weight Weight 174 lb 4 oz Result Diagrams: 04/27/19 04:00 04/27/19 04:00 Additional Labs: Accuchecks 04/27/19 04/27/19 04/26/19 12:38 05:16 17:03 POC Glucose 102 177 H 228 H labs reviewed by me Phys Exam - Physical Examination Constitutional: NAD HEENT: moist MMs, sclera anicteric, oral pharynx no lesions, 2+ tonsils Neck: no nodes, no JVD, supple, full ROM Respiratory: clear to auscultation bilateral Cardiovascular: RRR, no rub S1, S2 Gastrointestinal: soft, positive bowel sounds Mild diffuse tenderness, no guarding or rigidity Neurological: moves all 4 limbs Psychiatric: normal affect Deviation from normal: Oriented to person and place, not to time Dx/Plan (1) Febrile neutropenia Code(s): D70.9 - NEUTROPENIA, UNSPECIFIED; R50.81 - FEVER PRESENTING WITH CONDITIONS CLASSIFIED ELSEWHERE Status: Acute Comment: continue IV vancomycin and cefepime, follow cultures. neutropenia improved. (2) Choledocholithiasis Code(s): K80.50 - CALCULUS OF BILE DUCT W/O CHOLANGITIS OR CHOLECYST W/O OBST Status: Acute Comment: Abdo pain better, LFTs unremarkable. Consult GI for opinion/help with management. (3) CAD (coronary artery disease) Code(s): I25.10 - ATHSCL HEART DISEASE OF [place] CORONARY ARTERY W/O ANG PCTRS Status: Chronic Comment: on ASA,statin,BB. No RADHA-I/ARB due to CKD (4) DM2 (diabetes mellitus, type 2) Status: Chronic Comment: controlled (5) HLD (hyperlipidemia) Code(s): E78.5 - HYPERLIPIDEMIA, UNSPECIFIED Status: Chronic Comment: on statin (6) HTN (hypertension) Code(s): I10 - ESSENTIAL (PRIMARY) HYPERTENSION Status: Chronic Comment: monitor vital signs, titrate antihypertensives as needed - Plan * . Review of Systems - Review of Systems Constitutional: fever. negative: chills, sweats, weakness, malaise Respiratory: negative: Cough, Shortness of Breath, SOB with Excertion, Pleuritic Pain, Wheezing Cardiovascular: negative: chest pain, palpitations, orthopnea, paroxysmal nocturnal dyspnea, edema, light headedness Gastrointestinal: Nausea, Abdominal Pain. negative: Vomiting, Diarrhea, Constipation, Melena, Hematochezia Genitourinary: negative: Dysuria, Frequency, Incontinence, Hematuria, Retention - Medications/Allergies Allergies/Adverse Reactions: Allergies Allergy/AdvReac Type Severity Reaction Status Date / Time Penicillins Allergy Severe DIFFICULTY Verified 04/27/19 00:54 BREATHING Medications: Current Medications Acetaminophen (Tylenol) 650 mg PO Q4H PRN PRN Reason: Headache/Fever/Mild Pain (1-3) Acetaminophen (Tylenol) 650 mg NM Q4H PRN PRN Reason: Headache/Fever/Mild Pain (1-3) Dextrose/Water (Dextrose 50%) 25 gm SLOW IVP PRN PRN PRN Reason: Hypoglycemia Glucagon (Glucagon) 1 mg IM PRN PRN PRN Reason: Hypoglycemia Cefepime HCl 2 gm/ Sodium (Chloride) 100 mls @ 200 mls/hr IVPB [id number] Last Admin: 04/26/19 23:36 Dose: 100 mls Vancomycin HCl 750 mg/ Sodium (Chloride) 250 mls @ 250 mls/hr IVPB [facility] Dextrose/Water (D5w) 1,000 mls @ 0 mls/hr IV .Q0M PRN PRN Reason: Hypoglycemia Insulin Human Lispro (Humalog) 0 units SC .MILD SLIDING SCALE PRN PRN Reason: Mild Correctional Scale Miscellaneous Medication (Pharmacy To Dose) 1 each IVPB [facility] Stop: 05/26/19 22:01 Ondansetron HCl (Zofran Odt) 4 mg PO Q6H PRN PRN Reason: Nausea/Vomiting Ondansetron HCl (Zofran) 4 mg IVP Q6H PRN PRN Reason: Nausea/Vomiting Last Admin: 04/27/19 03:51 Dose: 4 mg Pegfilgrastim-jmdb (Fulphila) 6 mg SQ [facility] Stop: 04/27/19 21:00 Last Admin: 04/27/19 10:37 Dose: 6 mg
[2019-04-27] MEDS ORDERED: Calcium Carbonate 500 MG ChewTAB PO PRN (14:02)
[2019-04-27] MEDS ORDERED: Atorvastatin Calcium 20 MG TAB PO SCH (21:00)
[2019-04-27] MEDS ORDERED: Vancomycin HCl 750 MG in Sodium Chloride 0.9% 250 ML 250 ML IVPB SCH (21:00)
[2019-04-27] MEDS ORDERED: Finasteride 5 MG TAB PO SCH (21:00)
[2019-04-27] MEDS: Allopurinol 100 MG TAB PO SCH (21:36)
[2019-04-27] MEDS: Carvedilol 25 MG TAB PO SCH (21:51)
--- NOTE | 2019-04-27 21:57 | CON ---
DATE OF CONSULTATION: 04/27/2019 REASON FOR CONSULTATION: Abdominal pain and neutropenic fever. HISTORY OF PRESENT ILLNESS: Mr. 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 He has been on chemotherapy for that. Prior to that being diagnosed, he had been in the hospital for abdominal pain and had upper and lower endoscopies, which were nondiagnostic, but ultimately he was found to have cholelithiasis and choledocholithiasis and had an ERCP with removal of common bile duct stones as well as cholecystectomy. After that was all complete, the biopsies of the stomach came back and showed his B-cell lymphoma. He has been doing outpatient chemotherapy with Dr. De Jesus. Intermittently, he has been admitted since starting that. He was admitted a couple of times in December and then again he was admitted in January and he was admitted on the of this month. When he came in, he had neutropenia and fever of 100.5. CAT scan initially was performed, which really was poor quality with a lot of motion artifact and showed some anasarca, and a question of portal venous air, however, this was actually biliary air in light of his history of previous sphincterotomy and ERCP and also followup CAT scan that was done later in the day. There was concern in part of the radiologist there could be a stone in the distal bile duct in the region of the pancreatic head. The patient was started on broad-spectrum antibiotics and had cultures drawn. He also was placed on pegfilgrastim. His labs on admission are notable for a white count of 0.6, hemoglobin 8.5, platelet count 57,000, and platelet count today is 41,000 with hemoglobin of 7.3 and a white count of 1.6. His liver function tests were normal with a bilirubin of 0.5, AST and ALT of 18 and 28, and alkaline phosphatase of 86. He had a mildly elevated lactic acid of . BUN and creatinine were 79 and 3.34, which are around his baseline. The patient was admitted to the hospital, started on broad-spectrum antibiotics and IV hydration and had spaulding cultures drawn. Today, the patient notes his pain is fully resolved. He has not eaten yet today as his doctors were keeping him in the n.p.o. In talking with his nurse, he has had no fever today. He has had no diarrhea or vomiting. The patient notes he has been a little nauseated and his states that occasionally he will have some low back pain and low suprapubic abdominal pain for which she will give him a hydrocodone. She thinks it is related to his cancer. If he gets constipated, she will give him a laxative. PAST MEDICAL HISTORY: B-cell lymphoma involving bone discovered in the stomach, hyperlipidemia, coronary artery disease, previous stenting, congestive heart failure, and presently on chemotherapy. PAST SURGICAL HISTORY: CABG in 2006, left heart surgery, right heart surgery, retinal detachment, cholecystectomy, recent EGD and colonoscopy in October of 2018, and ERCP with removal of common bile duct stone in November of 2018. The patient had issues with tumor lysis syndrome earlier and took chemotherapy courses. SOCIAL HISTORY: No alcohol or tobacco. is at the bedside. ALLERGIES: PENICILLIN. MEDICATIONS AT HOME: Carvedilol, aspirin, allopurinol, Zofran, atorvastatin, Lasix, finasteride. PRESENT MEDICATIONS: Tylenol, allopurinol, aspirin, Lipitor, Tums, Coreg 25 mg b.i.d., cefepime, finasteride, furosemide 20 mg daily, Humalog, Zofran, FOLFIRI and vancomycin. PHYSICAL EXAMINATION: GENERAL: The patient is resting comfortably in the bed, he is sleeping, in no distress. VITAL SIGNS: Temperature 97.9, blood pressures systolics ranged between 100 and 120, more recently today 150/102 and 141/59, pulse 86, respirations 12. HEENT: He is nonicteric. LUNGS: Clear. HEART: Regular rate and rhythm without clicks or murmurs. ABDOMEN: Soft and nontender with no rebound or guarding. There is no shifting dullness or fluid wave. Well-healed scar in the midline of the abdomen consistent with previous laparotomy. EXTREMITIES: No edema. LABORATORY DATA: As per HPI. Today, his liver function tests are normal again with bilirubin of 0.5, AST and ALT 25 and 25, and alkaline phosphatase of 57, protein of 3.8, and albumin 2.3. DIAGNOSTIC STUDIES: CT scan, I have reviewed the films. There is no overt calcified mass in the distal common bile duct, but I do see what the radiologist is pointing at. There is also a question of could it be choledocholithiasis. ASSESSMENT: 1. Admission with neutropenic fever and abdominal pain. This has resolved. Often with neutropenic fever, people do develop abdominal pain. Etiologies in this patient could include a transient bacteremia from translocation of gastrointestinal enteric camelia. His CT scan showed no signs of typhlitis or colitis and clinically does not seem to have cholangitis, although he has air in his biliary tree. This is from previous sphincterotomy. There was a question by the radiologist whether he could have a stone in the distal common bile duct. His liver function tests were completely normal, which go against this and definitely would not be consistent with any cholangitis. He has followed a pretty benign course and improving rapidly once he started on antibiotics, filgrastim and IV hydration. 2. Questionable choledocholithiasis on CT. This is atypical to see choledocholithiasis with completely normal liver function tests and alkaline phosphatase. He has had choledocholithiasis in the past, however, he has had a sphincterotomy and stone extraction in the past already as well. This would be unlikely to have a retained stone. I do not think, however, the MRCP is going to help us as not very reliable to this institution. He had a lot of movement artifact on the first CT and I am not sure he could sit still for full MRI as he is quite restless. 3. Neutropenia. 4. Thrombocytopenia. 5. Anemia, all side effects of his chemotherapy. RECOMMENDATIONS: Continue broad spectrum antibiotics. Observation. If his counts improve, we will consider an ERCP as he has had a previous sphincterotomy, it is a low risk procedure and we can make sure he does not have any distal common duct stones. Job ID: [id number]
[2019-04-28] MEDS: Cefepime 2 GM in Sodium Chloride 0.9% 100 ML IVPB SCH (00:05)
--- NOTE | 2019-04-28 00:33 | CON ---
DATE OF CONSULTATION: REASON FOR CONSULTATION: Lymphoma, on chemotherapy. HISTORY OF PRESENT ILLNESS: A 68-year-old male with diffuse large B-cell lymphoma, currently on chemotherapy, presenting to the hospital with severe abdominal pain of only a few hours duration. The patient came to [facility] yesterday morning and received chemotherapy with gemcitabine and went home and after lunch, the patient began having severe abdominal pain and his family took him to the ER. He was also having nausea and vomiting at the same time. The patient was given morphine in the ER and had a CT of the abdomen and pelvis without contrast due to his severe CKD, which was not able to differentiate a cause. Full CT abdomen and pelvis was repeated with oral contrast and showed a 5 mm stone in the region of the pancreatic head, which was new and that may have reflected a distal common bile duct stone. No other acute changes are seen in the abdomen. However, this again was without IV contrast. This morning, the patient's pain has resolved and he was able to sleep during the night. He denies anymore nausea and vomiting since admission to the hospital. His family states his temperature was 100 in the ER, however, he has had no further fevers since admission and his vital signs are otherwise stable. His white blood cells have improved up to 1.6 and he is due for G-CSF today. He denies any other significant symptoms of shortness of breath or cough. He thinks his lower extremity edema is stable to slightly improved. REVIEW OF SYSTEMS: Ten-point review of systems negative except as per HPI. PAST MEDICAL HISTORY: Diffuse large B-cell lymphoma, CHF, CAD, high cholesterol, and CKD stage 4. PAST SURGICAL HISTORY: CABG 2006, left and right eye surgery, cholecystectomy, and cardiac stent placement. SOCIAL HISTORY: No alcohol or drugs. The patient quit smoking greater than 10 years ago. ALLERGIES: PENICILLIN. CURRENT MEDICATIONS: Reviewed. PHYSICAL EXAMINATION: VITAL SIGNS: Temperature 97.7, pulse 81, respirations 18, saturating 98% on room air, and blood pressure 141/59. GENERAL APPEARANCE: The patient is lying in bed, asleep and is arousable to name, is in no acute distress. HEENT: Normocephalic, atraumatic. Sclerae are anicteric. RESPIRATIONS: Clear to auscultation and nonlabored. CARDIOVASCULAR: S1 and S2 with regular rhythm and rate. No murmurs, rubs, or gallops. ABDOMEN: Soft, nondistended, is nontender to palpation. NEUROLOGIC: Cranial nerves 2 through 12 grossly intact. PSYCHIATRIC: Awake, alert, and oriented. EXTREMITIES: 2+ edema bilaterally. LABORATORY DATA: White blood cells 0.6 on admission, currently 1.6, hemoglobin 8.5 on admission, currently 7.3, platelets 57 on admission, currently 41. Sodium 139, potassium 4.4, BUN 78, creatinine 3.30, albumin 2.3, total bilirubin 0.5, AST 25, ALT 25, alkaline phosphatase 57. IMAGING DATA: CT abdomen and pelvis with oral contrast shows a new calcific density at the region of the pancreatic head that may reflect a distal common bile duct stone approximately 5 mm, stable pneumobilia with pre and post cholecystectomy changes. Worsening moderate right pleural effusion. Slight interval worsening of diffuse anasarca and stable renal hypodensities. ASSESSMENT AND PLAN: A 68-year-old male with diffuse large B-cell lymphoma, on chemotherapy, presenting with acute onset abdominal pain, nausea, and vomiting. CT scan showed a possible distal common bile duct stone, which may or may not have been the cause of patient's abdominal pain, which is now mostly resolved as has his nausea and vomiting. He is afebrile, although he is neutropenic due to chemotherapy and is due for Neulasta today, so we will give him that in the hospital. He has no signs of infection at this time. He has chronic anemia from disease and chemotherapy and would recommend transfusion for hemoglobin less than 7. The patient's thrombocytopenia is secondary to chemotherapy as well. As long as he has no bleeding, he does not need transfusion at this time. The patient's kidney disease is stage 4 and is currently stable. We will recommend following the patient's symptoms another 24 hours and if his pain, nausea and vomiting do not return, then he can likely be discharged with follow up with me in clinic. Job ID: [id number]
[2019-04-28] MEDS: Dicyclomine 10 MG CAP PO SCH ×4 (00:54→16:48)
[2019-04-28] MEDS: Ondansetron PF 4 MG/2 ML Vial IVP PRN ×2 (01:08→08:54)
[2019-04-28] MEDS ORDERED: HYDROcodone/Acetaminophen 5/325 mg Tablet PO PRN (03:45)
[2019-04-28 06:37] LABS: #Eosinphils 0.1 thou/uL (0.0-0.7); #Lymphocytes 0.2 thou/uL (1.20-3.40); #Monocytes 0.1 thou/uL (0.11-0.59); #Neutrophils 1.1 thou/uL (1.40-6.50); %Basophils 1.1 % (0.0-1.0); %Eosinophils 4.3 % (0.0-10.0); %Lymphocytes 11.3 % (21.0-51.0); %Monocytes 4.3 % (0.0-10.0); %Neutrophils 79.1 % (42.0-75.0); Hemoglobin 7.2 g/dL (14.0-18.0); Mean Corpuscular Hemoglobin 35.3 pg (27.0-31.0); Mean Corpuscular Volume 97.9 fL (78.0-98.0); Mean Platelet Volume 10.1 fL (7.4-10.4); Platelet Count 27 thou/uL (130-400); RBC Distribution Width 15.2 % (11.5-14.5); Red Blood Cell (RBC) Count 2.05 mill/uL (4.70-6.10); White Blood Cell (WBC) Count 1.4 thou/uL (4.8-10.8)
[2019-04-28 06:42] LABS: ALT (SGPT) 20 U/L (8-55); AST (SGOT) 20 U/L (5-34); Albumin 2.3 g/dL (3.4-4.8); Alkaline Phosphatase 50 U/L (40-150); Anion Gap 11 mmol/L (10-20); BUN (Urea Nitrogen) 77 mg/dL (8.4-25.7); Bilirubin, Direct 0.2 mg/dL (0.1-0.3); Bilirubin, Total 0.4 mg/dL (0.2-1.2); Calc. Creatinine Clearance 23 mL/min (70-130); Calcium 7.8 mg/dL (7.8-10.44); Carbon Dioxide 21 mmol/L (23-31); Chloride 112 mmol/L (98-107); Estimated GFR-MDRD 18; Glucose 133 mg/dL (80-115); Potassium 4.5 mmol/L (3.5-5.1); Protein, Total 3.7 g/dL (5.8-8.1); Sodium 139 mmol/L (136-145)
[2019-04-28] MEDS: Allopurinol 100 MG TAB PO SCH (08:54)
[2019-04-28] MEDS: Carvedilol 25 MG TAB PO SCH (08:54)
[2019-04-28] MEDS ORDERED: predniSONE 50 MG TAB PO SCH (09:00)
[2019-04-28] MEDS ORDERED: Furosemide 40 MG TAB PO SCH (09:00)
[2019-04-28] MEDS ORDERED: Aspirin 325 MG TAB PO SCH (09:00)
[2019-04-28 13:18] VITALS: BMI 25.7
--- NOTE | 2019-04-28 15:54 | PDOC.PN ---
- Subjective Encounter Start Date: 04/28/19 Encounter Start Time: 08:20 Pt seen for followup re: - Objective Resuscitation Status - Order Detail: 04/26/19 21:23 Resuscitation Status Routine Resuscitation Status: FULL: Full Resuscitation Vital Signs & Weight: Vital Signs (12 hours) Temp Pulse Resp BP Pulse Ox 04/28/19 12:03 97.5 F L 77 18 132/71 99 04/28/19 08:09 97.9 F 86 18 137/63 98 04/28/19 08:00 98 Weight Admit Weight 174 lb 4 oz Weight 174 lb 4 oz Result Diagrams: 04/28/19 05:35 04/28/19 05:35 Additional Labs: Accuchecks 04/28/19 04/28/19 04/27/19 12:02 05:38 19:54 POC Glucose 215 H 152 H 227 H 04/27/19 16:44 POC Glucose 90 Dx/Plan (1) Febrile neutropenia Code(s): D70.9 - NEUTROPENIA, UNSPECIFIED; R50.81 - FEVER PRESENTING WITH CONDITIONS CLASSIFIED ELSEWHERE Status: Acute Comment: continue IV vancomycin and cefepime, follow cultures. neutropenia improved. (2) Choledocholithiasis Code(s): K80.50 - CALCULUS OF BILE DUCT W/O CHOLANGITIS OR CHOLECYST W/O OBST Status: Acute Comment: Abdo pain better, LFTs unremarkable. Consult GI for opinion/help with management. (3) CAD (coronary artery disease) Code(s): I25.10 - ATHSCL HEART DISEASE OF [place] CORONARY ARTERY W/O ANG PCTRS Status: Chronic Comment: on ASA,statin,BB. No RADHA-I/ARB due to CKD (4) DM2 (diabetes mellitus, type 2) Status: Chronic Comment: controlled (5) HLD (hyperlipidemia) Code(s): E78.5 - HYPERLIPIDEMIA, UNSPECIFIED Status: Chronic Comment: on statin (6) HTN (hypertension) Code(s): I10 - ESSENTIAL (PRIMARY) HYPERTENSION Status: Chronic Comment: monitor vital signs, titrate antihypertensives as needed - Plan * .
[2019-04-28 16:17] VITALS: BP 128/73; TEMP 98
--- NOTE | 2019-04-28 18:22 | PRG ---
DATE OF SERVICE: 04/28/2019 SUBJECTIVE: Mr. Young is doing better. Talked with Dr. Perkins this afternoon, and he states he is going to let him go home. His fever has resolved. His neutropenia has resolved. I reviewed the patient's CT scans from both the and with Radiology. Interestingly, the scan on the with oral contrast where the concern for a retained common duct stone was noted and the CAT scan the day before showed no evidence of a retained stone. In reviewing the films with Radiology, there is no evidence of stones higher up or it was moved into the duct, and on looking at things more closely, we decided that there appeared to be a stone on the second CT was not a stone at all, but some contrast reflux up into the common bile duct. There are no calcified stones seen in his biliary tree whatsoever on the 04/26 study. Talked with Mr. Young, he is doing well. He has no abdominal pain. He feels well. OBJECTIVE: VITAL SIGNS: Temperature is 98, pulse 60, blood pressure 128/73. ABDOMEN: Soft and nontender. LABORATORY DATA: White count 1.4, hemoglobin 7.2, platelet count 27,000. Liver function tests normal. Bilirubin is normal. ASSESSMENT: 1. No choledocholithiasis. This is reflux of contrast up into the bile duct from the oral contrast received on the 04/27 CAT scan. The 04/26 CAT scan showed no signs of any calcified lesions in the biliary tree whatsoever, so I think what they thought was calcified was actually bile reflux. This goes along with the fact that he had sphincterotomy with ERCP and stone removal several months ago and then his liver function tests in this admission were completely normal. 2. His fever and abdominal pain are related to the neutropenic fever on admission. Blood cultures negative at 48 hours. RECOMMENDATIONS: At this time, no further recommendations from a GI standpoint. We will sign off. If could be any further assistance in the patient's care, please do not hesitate to contact me. Job ID: [id number]
--- NOTE | 2019-04-29 04:31 | DIS ---
DATE OF ADMISSION: 04/26/2019 DATE OF DISCHARGE: 04/28/2019 PRIMARY CARE PROVIDER: Tatianna Reid MD DISCHARGE DIAGNOSES: 1. Neutropenic fever. MEDICAL COMORBIDITIES: 1. Lymphoma. 2. Chronic kidney disease, stage 4. CONDITION OF THE PATIENT ON THE DAY OF DISCHARGE: Stable. I assessed Mr. Young on the day of discharge. He denies any chest pain or shortness of breath. He denies any abdominal pain. Vital signs are stable. S1 and S2 are heard, regular. Lungs are clear to auscultation bilaterally. Abdomen is soft, nontender, bowel sounds are heard. CONSULTATIONS DURING THIS HOSPITALIZATION: Gastroenterology, Dr. Garcia and Oncology, Dr. De Jesus. HOSPITAL COURSE: Mr. Young is a pleasant 68-year-old gentleman, who was admitted to [facility] on April 26, 2019, for neutropenic fever. CT scan of the abdomen and pelvis done at the time of admission was done without contrast. He had a repeat CT scan done with contrast on April 27, which showed new calcific density at the region of pancreatic head, which may reflect distal common bile duct stone. He was seen by Gastroenterology Service for the same. After discussion with radiology service it was decided that it was not a gall stone but contrast dye artifact. He had initially presented with abdominal pain. The abdominal pain resolved. His neutropenia also resolved. He has been cleared for discharge by Oncology Service. On the day of discharge, he has sodium 139, potassium 4.5, blood urea nitrogen 77, and creatinine 3.38. White count is 1400, of which 9.1% are neutrophils. Hemoglobin is 7.2, platelet count 27,000. DISCHARGE MEDICATIONS: Levofloxacin 500 mg every 48 hours, 3 more doses. Otherwise, no change was made to his pre-admission home medications as dictated by Dr. Malone in his history and physical note, dated April 27, 2019. The patient is advised to follow up with oncology clinic for final blood culture reports. He has followup appointment with Dr. De Jesus on May 02, 2019. Many thanks for allowing me to participate in your patient's care. Please feel free to contact me with any questions or concerns. DISCHARGE DESTINATION: Home. TIME SPENT: Total amount of time spent coordinating this discharge: 32 minutes. Job ID: [id number] [facility]
== END 2019-04-28 17:50 | disposition home or self-care (01) | DRG 809 ==
LOC: ERS 15:38 → ONC 22:48
PROVIDERS: ADMIT Emergency Medicine; ATTEND Emergency Medicine
DX: D70.1 Agranulocytosis secondary to cancer chemotherapy (principal); E87.2 Acidosis; C79.51 Secondary malignant neoplasm of bone; I13.0 Hypertensive heart and chronic kidney disease with heart failure and stage 1 through stage 4 chronic kidney disease, or unspecified chronic kidney disease; N18.4 Chronic kidney disease, stage 4 (severe); D69.59 Other secondary thrombocytopenia; C83.33 Diffuse large B-cell lymphoma, intra-abdominal lymph nodes; R10.9 Unspecified abdominal pain; T45.1X5A Adverse effect of antineoplastic and immunosuppressive drugs, initial encounter; R50.81 Fever presenting with conditions classified elsewhere; I25.10 Atherosclerotic heart disease of native coronary artery without angina pectoris; I50.9 Heart failure, unspecified; E78.5 Hyperlipidemia, unspecified; D64.81 Anemia due to antineoplastic chemotherapy; E11.22 Type 2 diabetes mellitus with diabetic chronic kidney disease; Z95.1 Presence of aortocoronary bypass graft; Z87.891 Personal history of nicotine dependence; Z79.82 Long term (current) use of aspirin; Z79.899 Other long term (current) drug therapy; Z88.0 Allergy status to penicillin
CPT/HCPCS: 36415; 36416; 74176; 80048; 80053; 80076; 81003; 81015; 82550; 83605; 83690; 85025; 87040; 94760; 96375; 96413; J0692; J1642; J2270; J2405; J3370; J3490; J7050; J9201; Q5108

== ENCOUNTER 2019-05-02 09:17 | Day surgery (SDC) | payer MEDICARE ==
[2019-05-02] MEDS ORDERED: Sodium Chloride 0.9% 50 ML ONE (09:27)
[2019-05-02] MEDS ORDERED: Acetaminophen 500 MG TAB PO SCH (09:45)
[2019-05-02] MEDS ORDERED: diphenhydrAMINE 25 MG CAP PO SCH (09:45)
[2019-05-02] MEDS ORDERED: Ondansetron PF 4 MG/2 ML Vial SLOW IVP PRN (15:18)
--- NOTE | 2019-05-02 17:38 | EKG ---
Test Reason : Blood Pressure : / mmHG Vent. Rate : 090 BPM Atrial Rate : 090 BPM P-R Int : 136 ms QRS Dur : 102 ms QT Int : 404 ms P-R-T Axes : 033 003 249 degrees QTc Int : 494 ms Sinus rhythm with frequent Premature ventricular complexes Abnormal ECG When compared with ECG of 26-MAR-2019 16:06, Premature ventricular complexes are now Present T wave inversion now evident in Anterior leads Confirmed by CRISTIAN LI, SSanjuanita ([id number]) on 05/02/2019 5:37:57 PM Referred By: MORAIMA Confirmed By:DR. Melba FOSTER MD
[2019-05-02 17:56] VITALS: BP 142/78; TEMP 97.7
== END 2019-05-02 17:57 | disposition home or self-care (01) ==
LOC: ONC/OP 09:17
PROVIDERS: ATTEND Internal Medicine Hematology & Oncology
PROC: 30233R1 Transfusion of Nonautologous Platelets into Peripheral Vein, Percutaneous Approach (ICD-10-PCS; principal; 2019-05-02)
PROC: 30233N1 Transfusion of Nonautologous Red Blood Cells into Peripheral Vein, Percutaneous Approach (ICD-10-PCS; 2019-05-02)
DX: D64.9 Anemia, unspecified (principal); D69.6 Thrombocytopenia, unspecified; Z88.0 Allergy status to penicillin; Z79.82 Long term (current) use of aspirin; Z79.2 Long term (current) use of antibiotics; Z79.899 Other long term (current) drug therapy
CPT/HCPCS: 36430; 86850; 86900; 86901; 93005; 93010; J1642; J2405; P9016; P9035; Q0163

== ENCOUNTER 2019-05-09 10:02 | Day surgery (SDC) | payer MEDICARE, OTHER ==
[~2019-05-09 10:02] MED LIST changes: +ADMIXTURE FEE CHEMO IVP SCH; +Acetaminophen 500 MG TAB PO PRN; +CYCLOPHOSPHAMIDE IVPB SCH; +DEXAMETHASONE IVPB SCH; -DEXAMETHASONE SOD PHOSPHATE IVPB SCH; +GEMCITABINE HCL IVPB SCH; -Ondansetron 2MG/ML MDV 10 MG in Sodium Chloride 0.9% 50 ML IVPB SCH; +Rituximab 500 MG, Rituximab 200 MG in Sodium Chloride 0.9% 500 ML IVPB SCH; +VINCRISTINE SULFATE IVP SCH; -[UNRECOGNIZED DRUG - OTHER] IVPB SCH; +diphenhydrAMINE 25 MG in Sodium Chloride 0.9% 50 ML IVPB SCH
[2019-05-09] MEDS ORDERED: diphenhydrAMINE 25 MG CAP PO SCH (10:15)
[2019-05-09] MEDS ORDERED: Acetaminophen 500 MG TAB PO SCH (10:15)
[2019-05-09] MEDS ORDERED: Sodium Chloride 0.9% 30 ML ONE (10:20)
[2019-05-09] MEDS: Furosemide 40 MG/4 ML VIAL SLOW IVP SCH ×2 (13:27→16:28)
[2019-05-09 13:35] LABS: Hemoglobin 6.8 g/dL (14.0-18.0)
[2019-05-09 16:46] VITALS: BP 128/82; TEMP 97.4
== END 2019-05-09 17:02 | disposition home or self-care (01) ==
LOC: ONC/OP 10:02
PROVIDERS: ATTEND Internal Medicine Hematology & Oncology
PROC: 30233N1 Transfusion of Nonautologous Red Blood Cells into Peripheral Vein, Percutaneous Approach (ICD-10-PCS; principal; 2019-05-09)
DX: D64.9 Anemia, unspecified (principal); D69.6 Thrombocytopenia, unspecified
CPT/HCPCS: 36415; 36430; 80053; 82248; 83615; 84100; 84550; 85014; 85018; 86850; 86900; 86901; 96375; J1100; J1200; J1642; J1940; J2405; J7050; P9016; Q0163

== ENCOUNTER 2019-05-12 23:01 | Inpatient (IN) | payer MEDICARE, OTHER ==
--- NOTE | 2019-05-12 23:26 | RAD ---
EXAM: Single view of the chest HISTORY: Shortness of breath COMPARISON: 03/07/2019 FINDINGS: Single view of the chest shows an enlarged but stable cardiomediastinal silhouette. The pa tient is status post sternotomy. The Mediport is unchanged in position. Bilateral perihilar fullness may represent normal pulmonary vasculature. There is no evidence of consolidation, mass, or pleural effusion. The bones are unremarkable. IMPRESSION: Stable exam
[2019-05-13 00:01] LABS: Hemoglobin 8.9 g/dL (14.0-18.0); Mean Corpuscular HGB CONC 33.3 g/dL (32.0-36.0); Mean Corpuscular Hemoglobin 31.4 pg (27.0-31.0); Mean Corpuscular Volume 94.4 fL (78.0-98.0); Red Blood Cell (RBC) Count 2.82 mill/uL (4.70-6.10); White Blood Cell (WBC) Count 15.2 thou/uL (4.8-10.8)
[2019-05-13 00:22] LABS: Band 4 % (5-11); Hypochromia SLIGHT = 6-15 cells (100X) (0-5/hpf); Lymphocytes 4 % (21-51); MDiff Complete? YES; Monocytes 7 % (0-10); Neutrophil 85 % (42-75); Platelet Count 94 thou/uL (130-400); Platelet Morphology Comment Appears Decreased
[2019-05-13 00:30] LABS: ALT (SGPT) 14 U/L (8-55); AST (SGOT) 20 U/L (5-34); Albumin 2.5 g/dL (3.4-4.8); Alkaline Phosphatase 124 U/L (40-150); Anion Gap 11 mmol/L (10-20); BUN (Urea Nitrogen) 58 mg/dL (8.4-25.7); Bilirubin, Total 0.4 mg/dL (0.2-1.2); CK (CPK) 151 U/L (30-200); Calc. Creatinine Clearance 0 mL/min (70-130); Calcium 7.7 mg/dL (7.8-10.44); Carbon Dioxide 24 mmol/L (23-31); Chloride 105 mmol/L (98-107); Estimated GFR-MDRD 14; Globulin 1.3 g/dL (2.4-3.5); Glucose 173 mg/dL (80-115); Potassium 4.1 mmol/L (3.5-5.1); Protein, Total 3.8 g/dL (5.8-8.1); Sodium 136 mmol/L (136-145)
[2019-05-13 00:54] LABS: CKMB 3.8 ng/mL (0-6.6)
[2019-05-13] MEDS ORDERED: Aspirin Chewable 81 MG TAB ONE (01:11)
[2019-05-13] MEDS ORDERED: Furosemide 100 MG/10 ML VIAL ONE (01:11)
[2019-05-13] MEDS ORDERED: Ondansetron PF 4 MG/2 ML Vial ONE (01:45)
[2019-05-13] MEDS ORDERED: Ondansetron ODT 4 MG TAB SL PRN (02:13)
[2019-05-13] MEDS ORDERED: Acetaminophen 325 MG TAB PO PRN (02:13)
[2019-05-13] MEDS ORDERED: Ondansetron PF 4 MG/2 ML Vial IVP PRN ×2 (02:13→07:03)
[2019-05-13 02:43] VITALS: BMI 26.3
[2019-05-13 03:15] LABS: CKMB 3.6 ng/mL (0-6.6)
[2019-05-13 06:15] LABS: Critical Call Chem Troponin I RESULT DECREASING
[2019-05-13] MEDS ORDERED: Loperamide HCl 2 MG CAP PO PRN (07:03)
[2019-05-13] MEDS ORDERED: Loratadine 10 MG TAB PO PRN (07:03)
[2019-05-13] MEDS ORDERED: Dextrose 50% Abboject 50 ML SYRINGE SLOW IVP PRN (07:03)
[2019-05-13] MEDS ORDERED: Sodium Chloride 0.65% Nasal 44 ML BOT EA NARE PRN (07:03)
[2019-05-13] MEDS ORDERED: Artificial Tears 18 DROP/0.9 ML EA EYE PRN (07:03)
[2019-05-13] MEDS ORDERED: hydrALAZINE 20 MG/ML VIAL SLOW IVP PRN (07:03)
[2019-05-13] MEDS ORDERED: Ondansetron ODT 4 MG TAB PO PRN (07:03)
[2019-05-13] MEDS ORDERED: Dextrose 5% in Water 1,000 ML IV PRN (07:03)
[2019-05-13] MEDS ORDERED: Nitroglycerin 0.4 MG TAB (25 Tab Bottle) SL PRN (07:03)
[2019-05-13] MEDS ORDERED: Calcium Carbonate 500 MG ChewTAB PO PRN (07:03)
[2019-05-13] MEDS ORDERED: Bisacodyl 10 MG SUPP PR PRN (07:03)
[2019-05-13] MEDS ORDERED: HYDROcodone/Acetaminophen 5/325 mg Tablet PO PRN (07:03)
[2019-05-13] MEDS ORDERED: Zolpidem Tartrate 5 MG TAB PO PRN (07:03)
[2019-05-13] MEDS ORDERED: Sodium Chloride 0.9% 10 ML ONE (08:34)
[2019-05-13] MEDS ORDERED: Furosemide 40 MG TAB PO SCH (09:00)
[2019-05-13] MEDS ORDERED: Senokot S 8.6-50 MG TAB PO PRN (09:00)
[2019-05-13] MEDS ORDERED: Aspirin 325 MG TAB PO SCH (09:00)
[2019-05-13] MEDS: Allopurinol 100 MG TAB PO SCH ×2 (09:20→21:09)
[2019-05-13] MEDS: Famotidine 20 MG TAB PO SCH (09:21)
[2019-05-13] MEDS: Carvedilol 25 MG TAB PO SCH ×2 (09:22→21:09)
--- NOTE | 2019-05-13 11:35 | CON ---
DATE OF CONSULTATION: 05/13/2019 CONSULTING PHYSICIAN: Dr. Dupree. REASON FOR CONSULTATION: Worsening renal function. REASON FOR ADMISSION: Leg swelling and edema. HISTORY OF PRESENT ILLNESS: This is a 68-year-old male with history of hyperlipidemia, coronary artery disease, CHF, CKD, came to the hospital with above complaints. The patient is also on treatment for lymphoma per Dr. De Jesus. The patient started having worsening leg swelling with shortness of breath at night, so he came to the hospital. He does follow with Dr. Noland as an outpatient for his CKD care, and his last creatinine was 3.3 to 3.5 and it was found to be 4.23. Nephrology is consulted. PAST MEDICAL HISTORY: Positive for; 1. CKD. 2. Hyperlipidemia. 3. Coronary artery disease. 4. Lymphoma. 5. CHF. PAST SURGICAL HISTORY: 1. CABG. 2. Left eye surgery. 3. Right eye surgery. 4. Cholecystectomy. 5. Cardiac stent. HOME MEDICATIONS: 1. Carvedilol. 2. Aspirin. 3. Allopurinol. 4. Zofran. 5. Atorvastatin. 6. Lasix. 7. Finasteride. ALLERGIES: PENICILLIN. SOCIAL HISTORY: He used to smoke cigarettes, but quit 10 years back. No alcohol or illicit drug abuse. FAMILY HISTORY: No history of kidney disease. REVIEW OF SYSTEMS: CONSTITUTIONAL: Negative for weight loss or gain, ability to conduct usual activities. SKIN: Negative for rash, itching. EYES: Negative for double vision, pain. ENT/MOUTH: Negative for nose bleeding, neck stiffness, pain, tenderness. CARDIOVASCULAR: Negative for palpitations, dyspnea on exertion, orthopnea. RESPIRATORY: Negative for shortness of breath, wheezing, cough, hemoptysis, fever or night sweats. GASTROINTESTINAL: Negative for poor appetite, abdominal pain, heartburn, nausea, vomiting, constipation, or diarrhea. GENITOURINARY: Negative for urgency, frequency, dysuria, nocturia. MUSCULOSKELETAL: Negative for pain, swelling. NEUROLOGIC/PSYCHIATRIC: Negative for anxiety, depression. ALLERGY/IMMUNOLOGIC: Negative for skin rash, bleeding tendency. Rest are negative review of systems. PHYSICAL EXAMINATION: GENERAL: This is a well-built male, in no apparent distress. VITAL SIGNS: Temperature 98.1, pulse 90, respiratory rate 20, blood pressure 113/84. HEENT: Atraumatic, normocephalic. Oral mucosa is moist. NECK: Supple. CVS: S1 and S2 heard. Rate and rhythm regular. RESPIRATORY: Clear. MUSCULOSKELETAL: 2+ edema. DERMATOLOGIC: No skin rash. NEUROLOGIC: Alert and awake. PSYCH: Mood and affect normal. LABORATORY DATA: Hemoglobin is 8.9, potassium is 4.1, BUN is 58, creatinine is 4.2. ASSESSMENT AND PLAN: 1. Acute kidney injury on chronic kidney disease, stage 4. Renal functioning is worsening, most likely progressing to end-stage renal disease. The patient is hesitant to start dialysis. I had a detailed discussion with him and his . The patient wants to try Lasix. If no significant improvement in his edema or shortness of breath and/or kidney function gets worse, he would try renal replacement with dialysis. He wants to wait how he responds to Lasix at this point. Plan is to increase Lasix to 40 IV b.i.d. 2. Anemia, chronic disease. 3. Edema with fluid overload and elevated BNP. Plan to try IV Lasix. If renal function gets worse or if no significant improvement in edema, we will try dialysis. 4. Hypoalbuminemia. 5. Hypertension, stable. Plan is to start on Lasix 40 mg IV b.i.d. and monitor fluid status. We will follow. Thank you for the consult. Job ID: [id number]
[2019-05-13] MEDS: Nitroglycerin 2% Ointment 1 INCH/1 GM Packet TOP SCH ×2 (12:33→21:08)
--- NOTE | 2019-05-13 13:54 | HP ---
PRIMARY CARE PHYSICIAN: Dr. Tatianna Reid. REASON FOR ADMISSION: [id number] ND type 2, CHF exacerbation, advanced CKD. HISTORY OF PRESENT ILLNESS: A 68-year-old male with history of CKD stage 4, who presented to emergency room with complaint of chest pain, which he describes that pain started in abdominal area and radiated to substernal area, dull aching in nature, associated with shortness of breath. He denies any diaphoresis, nausea, vomiting, or radiation. He denies any fever or chills. He does have dyspnea on exertion. He does have sometimes orthopnea, PND, as well as he has increasing bilateral lower extremity edema. With these symptoms, he presented to emergency room. The patient denies any fever, chills, nausea, vomiting, melena, or hematochezia. In the emergency room, the patient's routine blood test showed leukocytosis with left shift and his troponin is significantly abnormal. When I saw this patient, at that time, the patient was on room air. He was hemodynamically stable. He was not complaining any chest pain. REVIEW OF SYSTEMS: CONSTITUTIONAL: Negative for weight loss or gain, ability to conduct usual activities. SKIN: Negative for rash, itching. EYES: Negative for double vision, pain. ENT/MOUTH: Negative for nose bleeding, neck stiffness, pain, tenderness. CARDIOVASCULAR: Negative for palpitations, dyspnea on exertion, orthopnea. RESPIRATORY: Negative for shortness of breath, wheezing, cough, hemoptysis, fever or night sweats. GASTROINTESTINAL: Negative for poor appetite, abdominal pain, heartburn, nausea, vomiting, constipation, or diarrhea. GENITOURINARY: Negative for urgency, frequency, dysuria, nocturia. MUSCULOSKELETAL: Negative for pain, swelling. NEUROLOGIC/PSYCHIATRIC: Negative for anxiety, depression. ALLERGY/IMMUNOLOGIC: Negative for skin rash, bleeding tendency. Please see my HPI for pertinent positives and negatives. All other review of systems reviewed and negative except as mentioned in the HPI. PAST MEDICAL HISTORY: 1. Diabetes type 2. 2. Coronary artery disease with stent. 3. Hypertension. 4. CKD stage 4. 5. Dyslipidemia. 6. Lymphoma. PAST SURGICAL HISTORY: 1. CABG x4. 2. Right eye surgery for retinal detachment. 3. Cholecystectomy. 4. Cardiac catheterization with stent placement. 5. MediPort placement on the right side of the chest. PAST PSYCHIATRIC HISTORY: Reviewed and negative. SOCIAL HISTORY: The patient is a former smoker. He is , lives at home with his . No history of alcohol or other illicit drug abuse. FAMILY HISTORY: Positive for hypertension, diabetes, among several family members. ALLERGIES: PENICILLIN. CURRENT HOME MEDICATIONS: 1. Coreg 25 mg twice daily. 2. Aspirin 325 mg daily. 3. Lipitor 20 mg p.o. daily. 4. Lasix 20 mg daily. 5. Proscar 5 mg p.o. daily. EMERGENCY ROOM COURSE: The patient received Zofran, Lasix, and aspirin. PHYSICAL EXAMINATION: VITAL SIGNS: On arrival; blood pressure 155/91, pulse 94, respiratory rate 20, temperature 98.5, saturation 99% on room air. Weight 84.4 kg. GENERAL: The patient is currently alert, awake, in no obvious acute distress. HEENT: Head; normocephalic, atraumatic. Eyes; pupils are round, reactive to light. Extraocular muscle intact. ENT; oropharynx within normal limit. Moist mucous membrane. No oral lesion. No pharyngeal erythema. No exudate. NECK: Supple. No JVD. No thyromegaly. No carotid bruit. LUNGS: Grossly clear to auscultation without any rhonchi or rales. CARDIAC: S1, S2 appears regular. Soft systolic murmur noted. No gallop. No rub. ABDOMEN: Soft. Bowel sounds present. Nontender. Nondistended. No organomegaly. No mass. No suprapubic tenderness. BACK: Unremarkable. No CVA tenderness. EXTREMITIES: Upper extremities; passive movement of all joints are normal. Lower extremities; pitting edema noted. Good distal pulsation. SKIN: No skin rash. HEMATOLOGICAL: No lymphadenopathy. PSYCHIATRIC: Normal affect. SIGNIFICANT LABORATORY AND DIAGNOSTIC DATA: EKG showing normal sinus rhythm, premature ventricular complexes. Chest x-ray showing cardiomegaly, MediPort in place. Mild pulmonary vascular congestion noted. CBC; WBC 15.2, hemoglobin 8.9, platelets 94. BMP; sodium 136, potassium 4.1, chloride 105, carbon dioxide 24, anion gap 11, BUN 58, creatinine 4.23, glucose 173, calcium 7.7. LFT; AST 20, ALT 14, alkaline phosphatase 124, albumin 2.5. BNP 7297.1. CK-MB 3.6. Troponin-I 1.149 and then 1.083. ASSESSMENT AND PLAN: 1. [id number] myocardial infarction. It is unclear whether it is type 2 or type 1. We will consult Cardiology for their opinion. The patient is already on aspirin 325 mg p.o. daily. We will increase his Lipitor to 40 mg p.o. at bedtime. We will continue with Coreg 25 mg p.o. b.i.d., nitroglycerin patch q.8 hourly. Further decision will defer to Cardiology. The patient is on currently medical therapy. 2. [id number] systolic and diastolic congestive heart failure, ACC stage C. The patient has elevated BNP, elevated dyspnea on exertion, and lower extremity edema, all consistent with CHF exacerbation. The patient will be treated with Lasix 40 mg IV b.i.d. The patient is not on RADHA inhibitor and ARB because of renal insufficiency. 3. Advanced chronic kidney disease stage 4. I have provided renal replacement therapy education and we will consult Nephrology for their opinion. 4. Anemia of chronic disease as well as renal disease. 5. B-cell lymphoma. The patient is getting chemotherapy through Oncology Clinic. 6. Coronary artery disease with history of CABG and stent. 7. Diabetes type 2, well controlled. We will continue insulin as per sliding scale protocol. 8. Dyslipidemia. We will continue Lipitor 40 mg p.o. at bedtime. 9. Hypertension. We will continue Coreg, nitroglycerin patch, and Lasix. 10. Deep venous thrombosis prophylaxis, SCD boots. No Lovenox because of low platelet count. 11. Hyperuricemia. We will continue allopurinol 100 mg b.i.d. 12. GI prophylaxis. Pepcid 20 mg p.o. daily. 13. Code status: The patient is full code. The patient's is surrogate decision maker. DISPOSITION PLAN: Based on clinical course. We are expecting the patient's stay in hospital more than 2 midnights. Plan of care discussed with the patient in detail. Job ID: [id number]
[2019-05-13] MEDS: Furosemide 40 MG/4 ML VIAL SLOW IVP SCH (15:17)
--- NOTE | 2019-05-13 17:34 | CON ---
DATE OF CONSULTATION: REASON FOR CONSULTATION: Elevated troponin and congestive heart failure. HISTORY OF PRESENT ILLNESS: Mr. Young is very pleasant 68-year-old gentleman, seen and evaluated in the past. He has a history of CAD, status post bypass surgery. He also has advanced chronic kidney disease. His LVEF has also been moderately diminished estimated at 35% to 40%. He recently presented with CHF type symptoms. His creatinine continues to decline. He states his decision maker on Thursday on proceeding with dialysis or not. He is unsure. PAST MEDICAL HISTORY: Diastolic and systolic heart failure, CAD, lymphoma, diabetes mellitus, hypertension, hyperlipidemia, CAD, status bypass surgery, and cholecystectomy. ALLERGIES: PENICILLIN. HOME MEDICATIONS: Include: 1. Lipitor. 2. Coreg. 3. Finasteride. 4. Lasix. 5. Aspirin. 6. Allopurinol. REVIEW OF SYSTEMS: A 10-point review of systems is reviewed as above, otherwise negative. PHYSICAL EXAMINATION: GENERAL: Patient is a pleasant gentleman, who is in no acute distress. He does appear older than stated age. VITAL SIGNS: Blood pressure 120/68, pulse 78, temperature 98.2. NEUROLOGIC: The patient is alert and oriented x3 with no focal neurologic deficits. HEENT: Sclerae without icterus. Mouth has moist mucous membranes with normal pallor. NECK: No JVD. Carotid upstroke brisk. No bruits bilaterally. LUNGS: Clear to auscultation with unlabored respirations. BACK: No scoliosis or kyphosis. CARDIAC: Regular rate and rhythm with normal S1 and S2. No S3 or S4 noted. No significant rubs, murmurs, thrills, or gallops noted throughout the precordium. PMI is not displaced. There is no parasternal heave. ABDOMEN: Soft, nontender, nondistended. No peritoneal signs present. No hepatosplenomegaly. No abnormal striae. EXTREMITIES: 2+ femoral and 2+ dorsalis pedis pulses. No cyanosis, clubbing, or edema. SKIN: No gross abnormalities. PERTINENT LABORATORY DATA: Hemoglobin 8.9, creatinine 4.23, troponin 1.1. BNP of 7297. IMPRESSION: 1. Acute on chronic systolic, diastolic heart failure. 2. Coronary artery disease. 3. Status post bypass surgery. 4. Elevated troponin. 5. Advance kidney disease. 6. Elevated BNP. RECOMMENDATIONS: Mr. Young's symptoms are likely multifactorial. He does have advanced kidney disease and is unable to clear his fluids. He has had diminishing urine output. His hemoglobin has also decreased, likely from chronic kidney disease. His elevated troponin likely type 2 MN given the above. He has no current symptoms suggesting angina. There has been significant difficulty on diuresis noted in the past and appears to have reached a decision to proceed or not proceed with dialysis. Unfortunately if dialysis not performed, his continued hospitalization in heart failure would likely continue. If so, may need to consider palliative care. Coronary angio if not indicated, and due to increase the risk of worsening renal function, end-stage renal disease (we decided not to proceed). He also has a significant anemia and thrombocytopenia. Conservative measures and means recommended. We would decrease aspirin to 81 q.a.m. and continue atorvastatin in addition to carvedilol. We will consider Imdur if symptoms suggest angina. Job ID: [id number]
[2019-05-13 19:46] LABS: Bilirubin Negative (Negative); Blood, Urine Trace (Negative); Clarity CLEAR (Clear); Glucose, Urine (Dipstick) 100 mg/dL (Negative); Leukocyte Negative (Negative); Nitrite Negative (Negative); Protein, Urine (Dipstick) 300 mg/dL (Neg-Trace); Specific Gravity, Urine 1.009 (1.002-1.036); Urobilinogen 0.2 mg/dL (0.2-1.0); pH, Urine 6.5 (5.0-9.0)
[2019-05-13 19:48] LABS: Bacteria/HPF None Seen HPF (None Seen); Hyaline Casts/LPF 0-3 HYALINE CAST LPF (0-3 Hyaline); Pathc Cast-AUWi Flag 0.13 (0-2.49); RBC/HPF 0-3 HPF (0-3); Squamous Epithelial None Seen HPF (0-3); WBC/HPF None Seen HPF (0-3)
[2019-05-13] MEDS ORDERED: Atorvastatin Calcium 20 MG TAB PO SCH (21:00)
[2019-05-13] MEDS: Finasteride 5 MG TAB PO SCH (21:09)
[2019-05-13] MEDS: Atorvastatin Calcium 20 MG TAB PO SCH (21:09)
[2019-05-14] MEDS: Nitroglycerin 2% Ointment 1 INCH/1 GM Packet TOP SCH (04:59)
[2019-05-14] MEDS: Furosemide 40 MG/4 ML VIAL SLOW IVP SCH ×2 (06:04→15:05)
[2019-05-14 08:15] LABS: Hemoglobin 8.5 g/dL (14.0-18.0); Mean Corpuscular HGB CONC 34.6 g/dL (32.0-36.0); Mean Corpuscular Hemoglobin 32.5 pg (27.0-31.0); Mean Corpuscular Volume 94.1 fL (78.0-98.0); Mean Platelet Volume 8.8 fL (7.4-10.4); Platelet Count 129 thou/uL (130-400); Red Blood Cell (RBC) Count 2.62 mill/uL (4.70-6.10)
[2019-05-14 08:18] LABS: ALT (SGPT) 12 U/L (8-55); AST (SGOT) 16 U/L (5-34); Albumin 2.2 g/dL (3.4-4.8); Alkaline Phosphatase 105 U/L (40-150); Anion Gap 8 mmol/L (10-20); BUN (Urea Nitrogen) 52 mg/dL (8.4-25.7); Bilirubin, Total 0.5 mg/dL (0.2-1.2); Calc. Creatinine Clearance 19 mL/min (70-130); Calcium 7.9 mg/dL (7.8-10.44); Carbon Dioxide 29 mmol/L (23-31); Chloride 105 mmol/L (98-107); Estimated GFR-MDRD 15; Globulin 1.6 g/dL (2.4-3.5); Glucose 118 mg/dL (80-115); Potassium 3.8 mmol/L (3.5-5.1); Protein, Total 3.8 g/dL (5.8-8.1); Sodium 138 mmol/L (136-145)
[2019-05-14 08:35] LABS: Phosphorus 3.1 mg/dL (2.3-4.7)
[2019-05-14] MEDS: Carvedilol 25 MG TAB PO SCH ×2 (08:52→20:38)
[2019-05-14] MEDS: Sodium Chloride 0.9% 10 ML ONE (08:52)
[2019-05-14] MEDS: Aspirin 81 mg Enteric Coated Tablet PO SCH (08:52)
[2019-05-14] MEDS: Famotidine 20 MG TAB PO SCH (08:52)
[2019-05-14] MEDS: Allopurinol 100 MG TAB PO SCH ×2 (08:52→20:38)
--- NOTE | 2019-05-14 08:56 | PRG ---
DATE OF SERVICE: 05/14/2019 SUBJECTIVE: Patient was seen and examined at bedside and overnight events noted. Patient denies any shortness of breath or chest pain or palpitation. No history of nausea or vomiting or diarrhea or fever or chills or cramps. OBJECTIVE: GENERAL: This is a well-built male, in no apparent distress. VITAL SIGNS: Temperature 97. Pulse 77. Respiratory rate 18. Blood pressure 121/68. HEENT: Atraumatic, normocephalic. Oral mucosa is moist. NECK: Supple. CARDIOVASCULAR: S1, S2 heard. Rate and rhythm regular. RESPIRATORY: Clear to auscultation. GASTROINTESTINAL: Abdomen is soft. MUSCULOSKELETAL: No tenderness. No edema. DERMATOLOGIC: No skin rash. NEUROLOGIC: Alert and awake and oriented x3. No focal neurologic deficits. Moving all the extremities. PSYCHIATRIC: Mood and affect normal. LABORATORY DATA: Not done today. ASSESSMENT AND PLAN: 1. Acute kidney injury on chronic kidney disease, stage 4. We will monitor labs. Continue on Lasix. 2. Edema, fluid overload. 3. Cardiorenal syndrome. Continue Lasix. 4. Anemia. 5. Hypertension. Plan to continue Lasix. Monitor renal function. The patient is feeling better. Monitor I's and O's and limit fluid and salt intake. We will follow. Job ID: [id number]
[2019-05-14 10:47] LABS: Anisocytosis SLIGHT = 6-15 cells (100X) (0-5/hpf); Band 4 % (5-11); Hypochromia SLIGHT = 6-15 cells (100X) (0-5/hpf); Large Platelets SLIGHT; Lymphocytes 2 % (21-51); MDiff Complete? YES; Metamyelocyte 1 % (0-0); Microcytosis SLIGHT = 6-15 cells (100X) (0-5/hpf); Monocytes 14 % (0-10); Myelocyte 1 % (0-0); Neutrophil 80 % (42-75); Platelet Morphology Comment Appears Adequate; Polychromasia SLIGHT = 2-3 cells (100X) (0-2/hpf); Reactive Lymphocytes 4 % (0-10)
--- NOTE | 2019-05-14 11:15 | PDOC.PN ---
- Subjective Encounter Start Date: 05/14/19 Encounter Start Time: 07:45 -: old records requested/rev Patient seen and examined. No new complaints. No overnight events - Objective Resuscitation Status - Order Detail: 05/13/19 06:57 Resuscitation Status Routine Resuscitation Status: FULL: Full Resuscitation MAR Reviewed: Yes Vital Signs & Weight: Vital Signs (12 hours) Temp Pulse Resp BP BP Pulse Ox 05/14/19 08:00 98.8 F 82 17 131/76 95 05/14/19 05:42 93 L 05/14/19 04:00 97.7 F 77 18 121/68 92 L Weight Weight 173 lb 1.6 oz I&O: 05/13/19 05/14/19 05/15/19 06:59 06:59 06:59 Intake Total 0 1020 Output Total 550 1545 Balance -550 -525 Result Diagrams: 05/14/19 07:25 05/14/19 07:25 Additional Labs: Accuchecks 05/14/19 05/13/19 05/13/19 05:52 20:27 17:00 POC Glucose 129 H 178 H 172 H EKG Reviewed by me: Yes Phys Exam - Physical Examination Constitutional: NAD HEENT: PERRLA, moist MMs, sclera anicteric Neck: no JVD, supple, full ROM Respiratory: no wheezing, no rhonchi few basal rales Cardiovascular: RRR, no significant murmur, no rub Gastrointestinal: soft, non-tender, no distention, positive bowel sounds Musculoskeletal: pulses present, edema present Neurological: non-focal, normal sensation, moves all 4 limbs Lymphatic: no nodes Psychiatric: normal affect, A&O x 3 Skin: no rash, normal turgor Dx/Plan (1) Acute on chronic combined systolic and diastolic congestive heart failure Code(s): I50.43 - ACUTE ON CHRONIC COMBINED SYSTOLIC AND DIASTOLIC HRT FAIL Status: Acute Comment: (2) Type [address] elevation Code(s): I21.A1 - MYOCARDIAL INFARCTION TYPE 2 Status: Acute (3) Anemia Code(s): D64.9 - ANEMIA, UNSPECIFIED Status: Chronic Qualifiers: (4) B-cell lymphoma Code(s): C85.10 - UNSPECIFIED B-CELL LYMPHOMA, UNSPECIFIED SITE Status: Chronic Comment: (5) CAD (coronary artery disease) Code(s): I25.10 - ATHSCL HEART DISEASE OF [place] CORONARY ARTERY W/O ANG PCTRS Status: Chronic Comment: on ASA,statin,BB. No RADHA-I/ARB due to CKD (6) Chronic kidney disease, stage 4 (severe) Code(s): N18.4 - CHRONIC KIDNEY DISEASE, STAGE 4 (SEVERE) Status: Chronic Comment: stable, present on admission (7) DM2 (diabetes mellitus, type 2) Status: Chronic Comment: controlled (8) HLD (hyperlipidemia) Code(s): E78.5 - HYPERLIPIDEMIA, UNSPECIFIED Status: Chronic Comment: on statin (9) HTN (hypertension) Code(s): I10 - ESSENTIAL (PRIMARY) HYPERTENSION Status: Chronic Comment: monitor vital signs, titrate antihypertensives as needed (10) Hx of CABG Status: Chronic - Plan cont current plan of care, plan discussed w/ family * as per cardiology continue medical therapy for now * i spoke with family and pt about HD, he is not ready yet but he will think about it * may be AVF if pt agrees before discharge * medication reviewed as below * symptomatic treatment. * creatinine has improved today will monitor Review of Systems - Review of Systems Eyes: negative: Pain, Vision Change, Conjunctivae Inflammation, Eyelid Inflammation, Redness, Other Respiratory: SOB with Excertion. negative: Cough, Dry, Shortness of Breath, Hemoptysis, Pleuritic Pain, Sputum, Wheezing Cardiovascular: edema. negative: chest pain, palpitations, orthopnea, paroxysmal nocturnal dyspnea, light headedness, other Gastrointestinal: negative: Nausea, Vomiting, Abdominal Pain, Diarrhea, Constipation, Melena, Hematochezia, Other Genitourinary: negative: Dysuria, Frequency, Incontinence, Hematuria, Retention , Other Musculoskeletal: negative: Neck Pain, Shoulder Pain, Arm Pain, Back Pain, Hand Pain, Leg Pain, Foot Pain, Other Skin: negative: Rash, Lesions, Joseph, Bruising, Other - Medications/Allergies Allergies/Adverse Reactions: Allergies Allergy/AdvReac Type Severity Reaction Status Date / Time Penicillins Allergy Severe DIFFICULTY Verified 04/27/19 00:54 BREATHING Medications: Current Medications Acetaminophen (Tylenol) 650 mg PO Q4H PRN PRN Reason: Headache/Fever/Mild Pain (1-3) Hydrocodone Bitart/Acetaminophen ([place] 5/325) 1 tab PO Q4H PRN PRN Reason: Moderate Pain (4-6) Albuterol/Ipratropium (Duoneb) 3 ml NEB [id number] PRN PRN Reason: SOB &/or Wheezing Allopurinol (Zyloprim) 100 mg PO BID [facility] Last Admin: 05/14/19 08:52 Dose: 100 mg Artificial Tears (Tears Naturale) 2 drop EA EYE PRN PRN PRN Reason: Dry Eyes Aspirin (Ecotrin) 81 mg PO DAILY [facility] Last Admin: 05/14/19 08:52 Dose: 81 mg Atorvastatin Calcium (Lipitor) 40 mg PO HS [facility] Last Admin: 05/13/19 21:09 Dose: 40 mg Bisacodyl (Dulcolax) 10 mg [place] DAILYPRN PRN PRN Reason: Constipation Calcium Carbonate (Tums) 1,000 mg PO Q4H PRN PRN Reason: Heartburn or Indigestion Carvedilol (Coreg) 25 mg PO BID [facility] Last Admin: 05/14/19 08:52 Dose: 25 mg Dextrose/Water (Dextrose 50%) 25 gm SLOW IVP PRN PRN PRN Reason: Hypoglycemia Famotidine (Pepcid) 20 mg PO DAILY [facility] Last Admin: 05/14/19 08:52 Dose: 20 mg Finasteride (Proscar) 5 mg PO HS [facility] Last Admin: 05/13/19 21:09 Dose: 5 mg Furosemide (Lasix) 40 mg SLOW IVP 0600,1400 [facility] Last Admin: 05/14/19 06:04 Dose: 40 mg Glucagon (Glucagon) 1 mg IM PRN PRN PRN Reason: Hypoglycemia Guaifenesin (Robitussin Sf) 200 mg PO Q4H PRN PRN Reason: Cough Hydralazine HCl (Apresoline) 10 mg SLOW IVP Q4H PRN PRN Reason: SBP > 180 and HR < 70 Dextrose/Water (D5w) 1,000 mls @ 0 mls/hr IV .Q0M PRN PRN Reason: Hypoglycemia Insulin Human Lispro (Humalog) 0 units SC .MODERATE SLIDING SC PRN PRN Reason: Moderate Correctional Scale Insulin Human Lispro (Humalog) 0 units SC .BEDTIME SLIDING SC PRN PRN Reason: Bedtime Correctional Scale Isosorbide Mononitrate (Imdur Er) 30 mg PO DAILY [facility] Last Admin: 05/14/19 08:53 Dose: 30 mg Loperamide HCl (Imodium) 2 mg PO PRN PRN PRN Reason: Diarrhea/Loose Stools Loratadine (Claritin) 10 mg PO DAILYPRN PRN PRN Reason: Sinus Symptoms Nitroglycerin (Nitrostat) 0.4 mg SL Q5MIN PRN PRN Reason: Chest Pain Ondansetron HCl (Zofran Odt) 4 mg PO Q6H PRN PRN Reason: Nausea/Vomiting Ondansetron HCl (Zofran) 4 mg IVP Q6H PRN PRN Reason: Nausea/Vomiting Senna/Docusate Sodium (Senokot S) 2 tab PO BID PRN PRN Reason: Constipation Sodium Chloride ([place] Nasal [place] 0.65%) 0 ml EA NARE QIDPRN PRN PRN Reason: Nasal Congestion Zolpidem Tartrate (Ambien) 5 mg PO HSPRN PRN PRN Reason: Insomnia
--- NOTE | 2019-05-14 11:54 | EKG ---
Test Reason : Blood Pressure : / mmHG Vent. Rate : 092 BPM Atrial Rate : 092 BPM P-R Int : 150 ms QRS Dur : 110 ms QT Int : 344 ms P-R-T Axes : 043 011 226 degrees QTc Int : 425 ms Sinus rhythm with frequent Premature ventricular complexes Abnormal ECG Confirmed by KATHIE CORRAL DO ([id number]), field map editor MATTHEW SESAY ([id number]) on 05/14/2019 11:54:12 AM Referred By: Confirmed By:KATHIE CORRAL DO
--- NOTE | 2019-05-14 16:14 | PDOC.CTH ---
Cardiology Progress Note - Subjective No complaints. Minimal chest discomfort. Walked in [place] earlier. Eating [employer] as I walked in the room. - Objective Vital Signs Temp Pulse Resp BP Pulse Ox 05/14/19 11:10 97.9 F 74 18 130/72 93 L 05/14/19 08:00 98.8 F 82 17 131/76 95 05/14/19 05:42 93 L Weight 173 lb 1.6 oz 05/13/19 05/14/19 05/15/19 06:59 06:59 06:59 Intake Total 0 1020 Output Total 550 1545 Balance -550 -525 - Physical Examination General/Neuro: alert & oriented x3 Neck: no JVD present Heart: RRR Abdomen: NT/ND Extremities: + edema B - Labs Result Diagrams: 05/14/19 07:25 05/14/19 07:25 Troponin/CKMB CK-MB (CK-2) 3.6 ng/mL (0-6.6) 05/13/19 02:16 Troponin I 1.083 ng/mL (< 0.028) H* 05/13/19 05:12 - Assessment/Plan 1. Acute on chronic systolic and diastolic CHF 2. CKD 3. CAD s/p CABG 4. HTN Still with some overload, but doing well. Continue diuresis through renal. Patient denies any anginal symptoms. Discussed risks of angio previously and if symptoms occur will try nitrates unless emergent. Needs dietary compliance. Hopefully home soon.
--- NOTE | 2019-05-14 16:49 | PDOC.CTH ---
Cardiology Progress Note - Objective Vital Signs Temp Pulse Resp BP BP Pulse Ox 05/14/19 11:10 97.9 F 74 18 130/72 93 L 05/14/19 08:00 98.8 F 82 17 131/76 95 05/14/19 05:42 93 L 05/14/19 04:00 97.7 F 77 18 121/68 92 L Weight 173 lb 1.6 oz 05/13/19 05/14/19 05/15/19 06:59 06:59 06:59 Intake Total 0 1020 Output Total 550 1545 Balance -550 -525 - Labs Result Diagrams: 05/14/19 07:25 05/14/19 07:25 Troponin/CKMB CK-MB (CK-2) 3.6 ng/mL (0-6.6) 05/13/19 02:16 Troponin I 1.083 ng/mL (< 0.028) H* 05/13/19 05:12
[2019-05-14] MEDS: Finasteride 5 MG TAB PO SCH (20:37)
[2019-05-14] MEDS: Atorvastatin Calcium 20 MG TAB PO SCH (20:37)
[2019-05-14] MEDS: HumaLOG 300 UNITS/3 ML VIAL SC PRN (21:11)
[2019-05-15] MEDS: Furosemide 40 MG/4 ML VIAL SLOW IVP SCH ×2 (05:33→15:06)
[2019-05-15 06:20] LABS: Anion Gap 9 mmol/L (10-20); BUN (Urea Nitrogen) 50 mg/dL (8.4-25.7); Calc. Creatinine Clearance 19 mL/min (70-130); Calcium 8.1 mg/dL (7.8-10.44); Carbon Dioxide 29 mmol/L (23-31); Chloride 107 mmol/L (98-107); Estimated GFR-MDRD 15; Glucose 116 mg/dL (80-115); Potassium 3.9 mmol/L (3.5-5.1); Sodium 141 mmol/L (136-145)
[2019-05-15] MEDS: Famotidine 20 MG TAB PO SCH (08:31)
[2019-05-15] MEDS: Allopurinol 100 MG TAB PO SCH ×2 (08:31→22:21)
[2019-05-15] MEDS: Carvedilol 25 MG TAB PO SCH ×2 (08:32→22:21)
[2019-05-15] MEDS: Aspirin 81 mg Enteric Coated Tablet PO SCH (08:32)
[2019-05-15] MEDS ORDERED: Furosemide 40 MG/4 ML VIAL SLOW IVP SCH (10:45)
--- NOTE | 2019-05-15 11:22 | PRG ---
DATE OF SERVICE: 05/15/2019 SUBJECTIVE: Patient was seen and examined at bedside and overnight events noted. Patient denies any shortness of breath or chest pain or palpitation. No history of nausea or vomiting or diarrhea or fever or chills or cramps. OBJECTIVE: GENERAL: This is a well-built male, in no apparent distress. VITAL SIGNS: Temperature 97.8. Heart rate 71. Respiratory rate 18. Blood pressure 139/73. HEENT: Atraumatic, normocephalic. Oral mucosa is moist NECK: Supple. CARDIOVASCULAR: S1, S2 heard. Rate and rhythm regular. RESPIRATORY: Clear to auscultation. GASTROINTESTINAL: Abdomen is soft. MUSCULOSKELETAL: No tenderness. No edema. DERMATOLOGIC: No skin rash. NEUROLOGIC: Alert and awake and oriented X3. No focal neurologic deficits. Moving all the extremities. PSYCHIATRIC: Mood and affect normal. LABORATORY DATA: Potassium is 3.9, BUN is 50, creatinine is 4.05. ASSESSMENT AND PLAN: 1. Acute kidney injury on chronic kidney disease stage 4 with stable labs, but no significant improvement in fluid status. I will increase Lasix to 80 mg IV b.i.d. If no significant improvement in fluid status and the patient continues to be short of breath or orthopneic, plan is to start on dialysis. I had a discussion with the family including his and daughter, and family is agreeable to have dialysis if no improvement. 2. Edema, fluid overload. Continue on Lasix for now. 3. Cardiorenal syndrome. 4. Anemia. 5. Hypertension. Plan is to try increased dose of Lasix 80 mg IV b.i.d. today and monitor cardiorespiratory and fluid status. If no significant improvement by tomorrow, plan is to start on dialysis. We will continue counseling and we will continue to follow. Job ID: [id number]
--- NOTE | 2019-05-15 11:26 | PDOC.PN ---
- Subjective Encounter Start Date: 05/15/19 Encounter Start Time: 07:30 Patient seen and examined. No new complaints. No overnight events - Objective Resuscitation Status - Order Detail: 05/13/19 06:57 Resuscitation Status Routine Resuscitation Status: FULL: Full Resuscitation MAR Reviewed: Yes Vital Signs & Weight: Vital Signs (12 hours) Temp Pulse Resp BP BP Pulse Ox 05/15/19 11:10 98.7 F 80 18 131/80 98 05/15/19 08:28 97.8 F 79 16 139/73 96 05/15/19 03:42 98.8 F 77 15 116/63 94 L 05/15/19 03:36 99 Weight Weight 173 lb I&O: 05/14/19 05/15/19 05/16/19 06:59 06:59 06:59 Intake Total 1020 1290 Output Total 1545 1565 Balance -525 -275 Result Diagrams: 05/14/19 07:25 05/15/19 05:43 Additional Labs: Accuchecks 05/15/19 05/15/19 05/14/19 10:59 05:28 20:37 POC Glucose 145 H 123 H 215 H 05/14/19 05/14/19 16:50 10:53 POC Glucose 181 H 171 H EKG Reviewed by me: Yes Phys Exam - Physical Examination Constitutional: NAD HEENT: PERRLA, moist MMs, sclera anicteric Neck: no JVD, supple Respiratory: no wheezing, no rales, no rhonchi Cardiovascular: RRR, no significant murmur, no rub Gastrointestinal: soft, non-tender, no distention, positive bowel sounds Musculoskeletal: pulses present, edema present Neurological: non-focal, normal sensation, moves all 4 limbs Psychiatric: normal affect, A&O x 3 Skin: no rash, normal turgor Dx/Plan (1) Acute on chronic combined systolic and diastolic congestive heart failure Code(s): I50.43 - ACUTE ON CHRONIC COMBINED SYSTOLIC AND DIASTOLIC HRT FAIL Status: Acute Comment: (2) Type [address] elevation Code(s): I21.A1 - MYOCARDIAL INFARCTION TYPE 2 Status: Acute (3) Anemia Code(s): D64.9 - ANEMIA, UNSPECIFIED Status: Chronic Qualifiers: (4) B-cell lymphoma Code(s): C85.10 - UNSPECIFIED B-CELL LYMPHOMA, UNSPECIFIED SITE Status: Chronic Comment: (5) CAD (coronary artery disease) Code(s): I25.10 - ATHSCL HEART DISEASE OF [place] CORONARY ARTERY W/O ANG PCTRS Status: Chronic Comment: on ASA,statin,BB. No RADHA-I/ARB due to CKD (6) Chronic kidney disease, stage 4 (severe) Code(s): N18.4 - CHRONIC KIDNEY DISEASE, STAGE 4 (SEVERE) Status: Chronic Comment: stable, present on admission (7) DM2 (diabetes mellitus, type 2) Status: Chronic Comment: controlled (8) HLD (hyperlipidemia) Code(s): E78.5 - HYPERLIPIDEMIA, UNSPECIFIED Status: Chronic Comment: on statin (9) HTN (hypertension) Code(s): I10 - ESSENTIAL (PRIMARY) HYPERTENSION Status: Chronic Comment: monitor vital signs, titrate antihypertensives as needed (10) Hx of CABG Status: Chronic - Plan cont current plan of care, plan discussed w/ family * PT TODAY WILL THINK ABOUT HD * discussed with family * medication reviewed as below * symptomatic treatment. Review of Systems - Review of Systems ENT: negative: Ear Pain, Ear Discharge, Nose Pain, Nose Discharge, Nose Congestion, Mouth Pain, Mouth Swelling, Throat Pain, Throat Swelling, Other Respiratory: negative: Cough, Dry, Shortness of Breath, Hemoptysis, SOB with Excertion, Pleuritic Pain, Sputum, Wheezing Cardiovascular: edema. negative: chest pain, palpitations, orthopnea, paroxysmal nocturnal dyspnea, light headedness, other Gastrointestinal: negative: Nausea, Vomiting, Abdominal Pain, Diarrhea, Constipation, Melena, Hematochezia, Other Genitourinary: negative: Dysuria, Frequency, Incontinence, Hematuria, Retention , Other Musculoskeletal: negative: Neck Pain, Shoulder Pain, Arm Pain, Back Pain, Hand Pain, Leg Pain, Foot Pain, Other - Medications/Allergies Allergies/Adverse Reactions: Allergies Allergy/AdvReac Type Severity Reaction Status Date / Time Penicillins Allergy Severe DIFFICULTY Verified 04/27/19 00:54 BREATHING Medications: Current Medications Acetaminophen (Tylenol) 650 mg PO Q4H PRN PRN Reason: Headache/Fever/Mild Pain (1-3) Hydrocodone Bitart/Acetaminophen ([place] 5/325) 1 tab PO Q4H PRN PRN Reason: Moderate Pain (4-6) Albuterol/Ipratropium (Duoneb) 3 ml NEB [id number] PRN PRN Reason: SOB &/or Wheezing Allopurinol (Zyloprim) 100 mg PO BID [facility] Last Admin: 05/15/19 08:31 Dose: 100 mg Artificial Tears (Tears Naturale) 2 drop EA EYE PRN PRN PRN Reason: Dry Eyes Aspirin (Ecotrin) 81 mg PO DAILY [facility] Last Admin: 05/15/19 08:32 Dose: 81 mg Atorvastatin Calcium (Lipitor) 40 mg PO HS [facility] Last Admin: 05/14/19 20:37 Dose: 40 mg Bisacodyl (Dulcolax) 10 mg [place] DAILYPRN PRN PRN Reason: Constipation Calcium Carbonate (Tums) 1,000 mg PO Q4H PRN PRN Reason: Heartburn or Indigestion Carvedilol (Coreg) 25 mg PO BID [facility] Last Admin: 05/15/19 08:32 Dose: 25 mg Dextrose/Water (Dextrose 50%) 25 gm SLOW IVP PRN PRN PRN Reason: Hypoglycemia Famotidine (Pepcid) 20 mg PO DAILY [facility] Last Admin: 05/15/19 08:31 Dose: 20 mg Finasteride (Proscar) 5 mg PO [facility] Last Admin: 05/14/19 20:37 Dose: 5 mg Furosemide (Lasix) 80 mg SLOW IVP 0600,1400 [facility] Furosemide (Lasix) 40 mg SLOW IVP NOW [facility] Stop: 05/15/19 13:00 Last Admin: 05/15/19 11:14 Dose: 40 mg Glucagon (Glucagon) 1 mg IM PRN PRN PRN Reason: Hypoglycemia Guaifenesin (Robitussin Sf) 200 mg PO Q4H PRN PRN Reason: Cough Hydralazine HCl (Apresoline) 10 mg SLOW IVP Q4H PRN PRN Reason: SBP > 180 and HR < 70 Dextrose/Water (D5w) 1,000 mls @ 0 mls/hr IV .Q0M PRN PRN Reason: Hypoglycemia Insulin Human Lispro (Humalog) 0 units SC .MODERATE SLIDING SC PRN PRN Reason: Moderate Correctional Scale Insulin Human Lispro (Humalog) 0 units SC .BEDTIME SLIDING SC PRN PRN Reason: Bedtime Correctional Scale Last Admin: 05/14/19 21:11 Dose: 2 units Isosorbide Mononitrate (Imdur Er) 30 mg PO DAILY [facility] Last Admin: 05/15/19 08:31 Dose: 30 mg Loperamide HCl (Imodium) 2 mg PO PRN PRN PRN Reason: Diarrhea/Loose Stools Loratadine (Claritin) 10 mg PO DAILYPRN PRN PRN Reason: Sinus Symptoms Nitroglycerin (Nitrostat) 0.4 mg SL Q5MIN PRN PRN Reason: Chest Pain Ondansetron HCl (Zofran Odt) 4 mg PO Q6H PRN PRN Reason: Nausea/Vomiting Ondansetron HCl (Zofran) 4 mg IVP Q6H PRN PRN Reason: Nausea/Vomiting Senna/Docusate Sodium (Senokot S) 2 tab PO BID PRN PRN Reason: Constipation Last Admin: 05/15/19 09:48 Dose: 2 tab Sodium Chloride ([place] Nasal [place] 0.65%) 0 ml EA NARE QIDPRN PRN PRN Reason: Nasal Congestion Zolpidem Tartrate (Ambien) 5 mg PO HSPRN PRN PRN Reason: Insomnia
--- NOTE | 2019-05-15 11:57 | PDOC.CTH ---
Cardiology Progress Note - Subjective No new complaints. Plan for starting dialysis soon. - Objective Vital Signs Temp Pulse Resp BP BP Pulse Ox 05/15/19 11:10 98.7 F 80 18 131/80 98 05/15/19 08:28 97.8 F 79 16 139/73 96 05/15/19 03:42 98.8 F 77 15 116/63 94 L 05/15/19 03:36 99 Weight 173 lb 05/14/19 05/15/19 05/16/19 06:59 06:59 06:59 Intake Total 1020 1290 Output Total 1545 1565 Balance -525 -275 - Physical Examination General/Neuro: alert & oriented x3 Neck: no JVD present Lungs: CTA Heart: RRR Extremities: + edema B - Telemetry Telemetry Rhythm: SR - Labs Result Diagrams: 05/14/19 07:25 05/15/19 05:43 Troponin/CKMB CK-MB (CK-2) 3.6 ng/mL (0-6.6) 05/13/19 02:16 Troponin I 1.083 ng/mL (< 0.028) H* 05/13/19 05:12 - Assessment/Plan 1. Acute on chronic systolic and diastolic CHF 2. CKD 3. CAD s/p CABG 4. HTN Stable cardiac status. Diurese per renal. Plan for dialysis. No changes to care from my standpoint. No new changes from a CV standpoint. Pt to start dialysis in am. FU as outpatient
[2019-05-15] MEDS: Atorvastatin Calcium 20 MG TAB PO SCH (22:21)
[2019-05-15] MEDS: Finasteride 5 MG TAB PO SCH (22:22)
[2019-05-15] MEDS: Sodium Chloride 0.9% 10 ML ONE (22:22)
[2019-05-16 05:24] LABS: Anion Gap 10 mmol/L (10-20); BUN (Urea Nitrogen) 49 mg/dL (8.4-25.7); Calc. Creatinine Clearance 20 mL/min (70-130); Calcium 7.9 mg/dL (7.8-10.44); Carbon Dioxide 28 mmol/L (23-31); Chloride 105 mmol/L (98-107); Estimated GFR-MDRD 16; Glucose 151 mg/dL (80-115); Potassium 3.7 mmol/L (3.5-5.1); Sodium 139 mmol/L (136-145)
[2019-05-16 05:44] LABS: HBSAg Index 0.39 S/CO (0-0.99); Hep B Core Total Ab Non-Reactive (NonReactive); Hep B Core Total Index 0.03 S/CO (0-0.79); Hep B Surf AB Non-Reactive (NonReactive); Hep B Surf Ag Non-Reactive S/CO (NonReactive); Hep C IgG Ab Non-Reactive (NonReactive); Hep C Index 0.14 S/CO (0-0.79)
[2019-05-16] MEDS: Furosemide 40 MG/4 ML VIAL SLOW IVP SCH ×2 (08:29→14:25)
[2019-05-16] MEDS: Carvedilol 25 MG TAB PO SCH ×2 (08:30→21:04)
[2019-05-16] MEDS: Allopurinol 100 MG TAB PO SCH ×2 (08:30→21:04)
[2019-05-16] MEDS: Famotidine 20 MG TAB PO SCH (08:31)
--- NOTE | 2019-05-16 09:15 | ULT ---
BILATERAL UPPER EXTREMITY VEIN MAPPING: INDICATION: Dialysis access planning. End stage renal disease. RIGHT UPPER EXTREMITY: Brachial artery duplication is visualized 0.4 cm, 0.5 cm. Radial artery 0.14 cm. Ulnar artery 0.16 cm. CEPHALIC VEIN: Proximal humerus 0.25 cm Mid humerus 0.10 cm Distal 0.16 cm Elbow thrombus Proximal forearm 0.12 cm Mid 0.13 cm Distal 0.11 cm BASILIC VEIN: Proximal humerus 0.36 cm Mid humerus 0.3 cm Distal 0.21 cm Elbow 0.12 cm Proximal forearm 0.13 cm Mid 0.10 cm Distal 0.09 cm LEFT UPPER EXTREMITY: Brachial artery 0.65 cm. Radial artery 0.23 cm. Ulnar artery 0.22 cm. CEPHALIC VEIN: Proximal humerus 0.18 cm Mid humerus 0.13 cm Distal 0.09 cm Elbow 0.17 cm Proximal forearm 0.20 cm Mid 0.21 cm Distal 0.15 cm BASILIC SIZE: Proximal humerus 0.28 cm Mid humerus 0.15 cm Distal 0.31 cm Elbow 0.14 cm Proximal forearm not visualized Mid not visualized Distal not visualized IMPRESSION: Bilateral upper extremity vein mapping as above. POS: NWK
[2019-05-16] MEDS: Aspirin 81 mg Enteric Coated Tablet PO SCH (09:23)
--- NOTE | 2019-05-16 09:58 | PRG ---
DATE OF SERVICE: 05/16/2019 SUBJECTIVE: A 68-year-old gentleman, being seen for progressive CKD. The patient denies any nausea, vomiting, or chest pain. OBJECTIVE: GENERAL: The patient is awake and alert. VITAL SIGNS: Afebrile, pulse 75, breathing 16, blood pressure 120/72. GENERAL APPEARANCE AND MENTAL STATUS: Fair. HEAD/NECK: Normocephalic. Atraumatic. EYES: EOMI. No deformity. EARS: Clear. No ulcers. NOSE: Intact. No lesions. MOUTH: Clear. No discharge. THROAT: Clear. No exudate. LUNGS: Clear. No crackles. CARDIAC: S1, S2. No rub. ABDOMEN: Benign. Bowel sounds positive. GENITALIA/RECTUM: Connor absent. BACK/EXTREMITIES: Edema 0+. NEUROLOGICAL: Alert and motor intact. SKIN: LYMPHATICS: LABORATORY DATA: Hemoglobin 8.5. Creatinine 3.8. IMPRESSION: 1. Stage 5 chronic kidney disease with progressive edema and dyspnea. We will plan dialysis after catheter placement. Continue Lasix. 2. Hypertension, stable. 3. Anemia, stable. 4. Congestive heart failure, plan dialysis. Job ID: [id number]
--- NOTE | 2019-05-16 11:46 | PDOC.PN ---
- Subjective Encounter Start Date: 05/16/19 Encounter Start Time: 07:45 pt has decided for HD, he still has edema, has dyspnea Patient seen and examined. No new complaints. No overnight events - Objective Resuscitation Status - Order Detail: 05/13/19 06:57 Resuscitation Status Routine Resuscitation Status: FULL: Full Resuscitation MAR Reviewed: Yes Vital Signs & Weight: Vital Signs (12 hours) Temp Pulse Resp BP BP Pulse Ox 05/16/19 11:29 98.4 F 75 16 97/56 L 93 L 05/16/19 08:23 98.7 F 75 16 120/72 92 L 05/16/19 04:05 98.4 F 77 20 133/63 92 L Weight Weight 157 lb 6 oz I&O: 05/15/19 05/16/19 05/17/19 06:59 06:59 06:59 Intake Total 1290 1200 Output Total 1565 1700 Balance -275 -500 Result Diagrams: 05/14/19 07:25 05/16/19 04:17 Additional Labs: Accuchecks 05/16/19 05/15/19 05/15/19 05:51 20:19 18:01 POC Glucose 149 H 234 H 206 H EKG Reviewed by me: Yes Phys Exam - Physical Examination Constitutional: NAD HEENT: PERRLA, moist MMs, sclera anicteric Neck: no JVD, supple Respiratory: no wheezing, no rhonchi reduced air entry Cardiovascular: RRR, no significant murmur, no rub Gastrointestinal: soft, non-tender, no distention, positive bowel sounds Musculoskeletal: pulses present, edema present Neurological: non-focal, normal sensation Lymphatic: no nodes Psychiatric: normal affect, A&O x 3 Skin: no rash, normal turgor Dx/Plan (1) Acute on chronic combined systolic and diastolic congestive heart failure Code(s): I50.43 - ACUTE ON CHRONIC COMBINED SYSTOLIC AND DIASTOLIC HRT FAIL Status: Acute Comment: (2) Type [address] elevation Code(s): I21.A1 - MYOCARDIAL INFARCTION TYPE 2 Status: Acute (3) Anemia Code(s): D64.9 - ANEMIA, UNSPECIFIED Status: Chronic Qualifiers: (4) B-cell lymphoma Code(s): C85.10 - UNSPECIFIED B-CELL LYMPHOMA, UNSPECIFIED SITE Status: Chronic Comment: (5) CAD (coronary artery disease) Code(s): I25.10 - ATHSCL HEART DISEASE OF [place] CORONARY ARTERY W/O ANG PCTRS Status: Chronic Comment: on ASA,statin,BB. No RADHA-I/ARB due to CKD (6) Chronic kidney disease, stage 4 (severe) Code(s): N18.4 - CHRONIC KIDNEY DISEASE, STAGE 4 (SEVERE) Status: Chronic Comment: stable, present on admission (7) DM2 (diabetes mellitus, type 2) Status: Chronic Comment: controlled (8) HLD (hyperlipidemia) Code(s): E78.5 - HYPERLIPIDEMIA, UNSPECIFIED Status: Chronic Comment: on statin (9) HTN (hypertension) Code(s): I10 - ESSENTIAL (PRIMARY) HYPERTENSION Status: Chronic Comment: monitor vital signs, titrate antihypertensives as needed (10) Hx of CABG Status: Chronic - Plan cont current plan of care, plan discussed w/ family * pt is planned for surgery for dialysis access tomorrow * meanwhile continue lasix * discussed with and answered question regarding HD * he may eventually will need dialysis placement arrangement * will ask cardiology if they have to do any procedure * medication reviewed as below * symptomatic treatment. Review of Systems - Review of Systems Eyes: negative: Pain, Vision Change, Conjunctivae Inflammation, Eyelid Inflammation, Redness, Other ENT: negative: Ear Pain, Ear Discharge, Nose Pain, Nose Discharge, Nose Congestion, Mouth Pain, Mouth Swelling, Throat Pain, Throat Swelling, Other Respiratory: SOB with Excertion. negative: Cough, Dry, Shortness of Breath, Hemoptysis, Pleuritic Pain, Sputum, Wheezing Cardiovascular: edema. negative: chest pain, palpitations, orthopnea, paroxysmal nocturnal dyspnea, light headedness, other Gastrointestinal: negative: Nausea, Vomiting, Abdominal Pain, Diarrhea, Constipation, Melena, Hematochezia, Other Genitourinary: negative: Dysuria, Frequency, Incontinence, Hematuria, Retention , Other Musculoskeletal: negative: Neck Pain, Shoulder Pain, Arm Pain, Back Pain, Hand Pain, Leg Pain, Foot Pain, Other - Medications/Allergies Allergies/Adverse Reactions: Allergies Allergy/AdvReac Type Severity Reaction Status Date / Time Penicillins Allergy Severe DIFFICULTY Verified 04/27/19 00:54 BREATHING Medications: Current Medications Acetaminophen (Tylenol) 650 mg PO Q4H PRN PRN Reason: Headache/Fever/Mild Pain (1-3) Hydrocodone Bitart/Acetaminophen ([place] 5/325) 1 tab PO Q4H PRN PRN Reason: Moderate Pain (4-6) Albuterol/Ipratropium (Duoneb) 3 ml NEB [id number] PRN PRN Reason: SOB &/or Wheezing Allopurinol (Zyloprim) 100 mg PO BID [facility] Last Admin: 05/16/19 08:30 Dose: 100 mg Artificial Tears (Tears Naturale) 2 drop EA EYE PRN PRN PRN Reason: Dry Eyes Aspirin (Ecotrin) 81 mg PO DAILY [facility] Last Admin: 05/16/19 09:23 Dose: 81 mg Atorvastatin Calcium (Lipitor) 40 mg PO HS [facility] Last Admin: 05/15/19 22:21 Dose: 40 mg Bisacodyl (Dulcolax) 10 mg [place] DAILYPRN PRN PRN Reason: Constipation Calcium Carbonate (Tums) 1,000 mg PO Q4H PRN PRN Reason: Heartburn or Indigestion Carvedilol (Coreg) 25 mg PO BID [facility] Last Admin: 05/16/19 08:30 Dose: 25 mg Dextrose/Water (Dextrose 50%) 25 gm SLOW IVP PRN PRN PRN Reason: Hypoglycemia Famotidine (Pepcid) 20 mg PO DAILY [facility] Last Admin: 05/16/19 08:31 Dose: 20 mg Finasteride (Proscar) 5 mg PO HS [facility] Last Admin: 05/15/19 22:22 Dose: 5 mg Furosemide (Lasix) 80 mg SLOW IVP 0600,1400 [facility] Last Admin: 05/16/19 08:29 Dose: 80 mg Glucagon (Glucagon) 1 mg IM PRN PRN PRN Reason: Hypoglycemia Guaifenesin (Robitussin Sf) 200 mg PO Q4H PRN PRN Reason: Cough Hydralazine HCl (Apresoline) 10 mg SLOW IVP Q4H PRN PRN Reason: SBP > 180 and HR < 70 Dextrose/Water (D5w) 1,000 mls @ 0 mls/hr IV .Q0M PRN PRN Reason: Hypoglycemia Insulin Human Lispro (Humalog) 0 units SC .MODERATE SLIDING SC PRN PRN Reason: Moderate Correctional Scale Insulin Human Lispro (Humalog) 0 units SC .BEDTIME SLIDING SC PRN PRN Reason: Bedtime Correctional Scale Last Admin: 05/14/19 21:11 Dose: 2 units Isosorbide Mononitrate (Imdur Er) 30 mg PO DAILY [facility] Last Admin: 05/16/19 08:31 Dose: 30 mg Loperamide HCl (Imodium) 2 mg PO PRN PRN PRN Reason: Diarrhea/Loose Stools Loratadine (Claritin) 10 mg PO DAILYPRN PRN PRN Reason: Sinus Symptoms Nitroglycerin (Nitrostat) 0.4 mg SL Q5MIN PRN PRN Reason: Chest Pain Ondansetron HCl (Zofran Odt) 4 mg PO Q6H PRN PRN Reason: Nausea/Vomiting Ondansetron HCl (Zofran) 4 mg IVP Q6H PRN PRN Reason: Nausea/Vomiting Senna/Docusate Sodium (Senokot S) 2 tab PO BID PRN PRN Reason: Constipation Last Admin: 05/15/19 09:48 Dose: 2 tab Sodium Chloride ([place] Nasal [place] 0.65%) 0 ml EA NARE QIDPRN PRN PRN Reason: Nasal Congestion Zolpidem Tartrate (Ambien) 5 mg PO HSPRN PRN PRN Reason: Insomnia
[2019-05-16] MEDS: Atorvastatin Calcium 20 MG TAB PO SCH (21:04)
[2019-05-16] MEDS: Finasteride 5 MG TAB PO SCH (21:04)
[2019-05-16] MEDS: Diabetic Tussin 200 MG/10 ML UDCUP PO PRN (21:11)
[2019-05-17] MEDS: Furosemide 40 MG/4 ML VIAL SLOW IVP SCH ×2 (06:11→20:28)
[2019-05-17 07:03] LABS: Anion Gap 9 mmol/L (10-20); BUN (Urea Nitrogen) 47 mg/dL (8.4-25.7); Calc. Creatinine Clearance 19 mL/min (70-130); Calcium 7.9 mg/dL (7.8-10.44); Carbon Dioxide 29 mmol/L (23-31); Chloride 103 mmol/L (98-107); Estimated GFR-MDRD 15; Glucose 177 mg/dL (80-115); Potassium 3.5 mmol/L (3.5-5.1); Sodium 137 mmol/L (136-145)
[2019-05-17] MEDS: Allopurinol 100 MG TAB PO SCH ×2 (09:15→22:12)
[2019-05-17] MEDS: Famotidine 20 MG TAB PO SCH (09:15)
[2019-05-17] MEDS: Aspirin 81 mg Enteric Coated Tablet PO SCH (09:16)
[2019-05-17] MEDS: Carvedilol 25 MG TAB PO SCH ×2 (09:16→22:13)
--- NOTE | 2019-05-17 10:14 | PDOC.PN ---
- Subjective Encounter Start Date: 05/17/19 Encounter Start Time: 07:40 Patient seen and examined. No new complaints. No overnight events - Objective Resuscitation Status - Order Detail: 05/13/19 06:57 Resuscitation Status Routine Resuscitation Status: FULL: Full Resuscitation MAR Reviewed: Yes Vital Signs & Weight: Vital Signs (12 hours) Temp Pulse Resp BP Pulse Ox 05/17/19 08:00 99.7 F H 83 16 135/72 97 05/17/19 04:00 98.9 F 81 18 130/63 93 L 05/17/19 00:00 79 18 Weight Weight 170 lb 8 oz I&O: 05/16/19 05/17/19 05/18/19 06:59 06:59 06:59 Intake Total 1200 620 Output Total 1700 2250 Balance -500 -1630 Result Diagrams: 05/14/19 07:25 05/17/19 06:30 Additional Labs: Accuchecks 05/17/19 05/16/19 05/16/19 05:35 21:03 16:50 POC Glucose 209 H 224 H 154 H 05/16/19 11:08 POC Glucose 153 H EKG Reviewed by me: Yes Phys Exam - Physical Examination Constitutional: NAD HEENT: PERRLA, moist MMs, sclera anicteric Neck: no JVD, supple Respiratory: no wheezing, no rales, no rhonchi Cardiovascular: RRR, no significant murmur, no rub Gastrointestinal: soft, non-tender, no distention, positive bowel sounds Musculoskeletal: pulses present, edema present Neurological: non-focal, normal sensation, moves all 4 limbs Psychiatric: normal affect, A&O x 3 Skin: no rash, normal turgor Dx/Plan (1) Acute on chronic combined systolic and diastolic congestive heart failure Code(s): I50.43 - ACUTE ON CHRONIC COMBINED SYSTOLIC AND DIASTOLIC HRT FAIL Status: Acute Comment: (2) Type [address] elevation Code(s): I21.A1 - MYOCARDIAL INFARCTION TYPE 2 Status: Acute (3) Anemia Code(s): D64.9 - ANEMIA, UNSPECIFIED Status: Chronic Qualifiers: (4) B-cell lymphoma Code(s): C85.10 - UNSPECIFIED B-CELL LYMPHOMA, UNSPECIFIED SITE Status: Chronic Comment: (5) CAD (coronary artery disease) Code(s): I25.10 - ATHSCL HEART DISEASE OF [place] CORONARY ARTERY W/O ANG PCTRS Status: Chronic Comment: on ASA,statin,BB. No RADHA-I/ARB due to CKD (6) Chronic kidney disease, stage 4 (severe) Code(s): N18.4 - CHRONIC KIDNEY DISEASE, STAGE 4 (SEVERE) Status: Chronic Comment: stable, present on admission (7) DM2 (diabetes mellitus, type 2) Status: Chronic Comment: controlled (8) HLD (hyperlipidemia) Code(s): E78.5 - HYPERLIPIDEMIA, UNSPECIFIED Status: Chronic Comment: on statin (9) HTN (hypertension) Code(s): I10 - ESSENTIAL (PRIMARY) HYPERTENSION Status: Chronic Comment: monitor vital signs, titrate antihypertensives as needed (10) Hx of CABG Status: Chronic - Plan cont current plan of care, plan discussed w/ family * today plan for dialysis access procedure * after that HD as per nephrology * insurance case manager to arrange outpt HD * medication reviewed as below * symptomatic treatment * meanwhile continue current medical therapy including lasix. Review of Systems - Review of Systems ENT: negative: Ear Pain, Ear Discharge, Nose Pain, Nose Discharge, Nose Congestion, Mouth Pain, Mouth Swelling, Throat Pain, Throat Swelling, Other Respiratory: negative: Cough, Dry, Shortness of Breath, Hemoptysis, SOB with Excertion, Pleuritic Pain, Sputum, Wheezing Cardiovascular: negative: chest pain, palpitations, orthopnea, paroxysmal nocturnal dyspnea, edema, light headedness, other Gastrointestinal: negative: Nausea, Vomiting, Abdominal Pain, Diarrhea, Constipation, Melena, Hematochezia, Other Genitourinary: negative: Dysuria, Frequency, Incontinence, Hematuria, Retention , Other Musculoskeletal: negative: Neck Pain, Shoulder Pain, Arm Pain, Back Pain, Hand Pain, Leg Pain, Foot Pain, Other - Medications/Allergies Allergies/Adverse Reactions: Allergies Allergy/AdvReac Type Severity Reaction Status Date / Time Penicillins Allergy Severe DIFFICULTY Verified 04/27/19 00:54 BREATHING Medications: Current Medications Acetaminophen (Tylenol) 650 mg PO Q4H PRN PRN Reason: Headache/Fever/Mild Pain (1-3) Hydrocodone Bitart/Acetaminophen ([place] 5/325) 1 tab PO Q4H PRN PRN Reason: Moderate Pain (4-6) Albuterol/Ipratropium (Duoneb) 3 ml NEB [id number] PRN PRN Reason: SOB &/or Wheezing Allopurinol (Zyloprim) 100 mg PO BID [facility] Last Admin: 05/17/19 09:15 Dose: 100 mg Artificial Tears (Tears Naturale) 2 drop EA EYE PRN PRN PRN Reason: Dry Eyes Aspirin (Ecotrin) 81 mg PO DAILY [facility] Last Admin: 05/17/19 09:16 Dose: Not Given Atorvastatin Calcium (Lipitor) 40 mg PO HS [facility] Last Admin: 05/16/19 21:04 Dose: 40 mg Bisacodyl (Dulcolax) 10 mg [place] DAILYPRN PRN PRN Reason: Constipation Calcium Carbonate (Tums) 1,000 mg PO Q4H PRN PRN Reason: Heartburn or Indigestion Carvedilol (Coreg) 25 mg PO BID [facility] Last Admin: 05/17/19 09:16 Dose: 25 mg Dextrose/Water (Dextrose 50%) 25 gm SLOW IVP PRN PRN PRN Reason: Hypoglycemia Famotidine (Pepcid) 20 mg PO DAILY [facility] Last Admin: 05/17/19 09:15 Dose: 20 mg Finasteride (Proscar) 5 mg PO HS [facility] Last Admin: 05/16/19 21:04 Dose: 5 mg Furosemide (Lasix) 80 mg SLOW IVP 0600,1400 [facility] Last Admin: 05/17/19 06:11 Dose: 80 mg Glucagon (Glucagon) 1 mg IM PRN PRN PRN Reason: Hypoglycemia Guaifenesin (Robitussin Sf) 200 mg PO Q4H PRN PRN Reason: Cough Last Admin: 05/16/19 21:11 Dose: 200 mg Hydralazine HCl (Apresoline) 10 mg SLOW IVP Q4H PRN PRN Reason: SBP > 180 and HR < 70 Dextrose/Water (D5w) 1,000 mls @ 0 mls/hr IV .Q0M PRN PRN Reason: Hypoglycemia Insulin Human Lispro (Humalog) 0 units SC .MODERATE SLIDING SC PRN PRN Reason: Moderate Correctional Scale Insulin Human Lispro (Humalog) 0 units SC .BEDTIME SLIDING SC PRN PRN Reason: Bedtime Correctional Scale Last Admin: 05/14/19 21:11 Dose: 2 units Isosorbide Mononitrate (Imdur Er) 30 mg PO DAILY [facility] Last Admin: 05/17/19 09:15 Dose: 30 mg Loperamide HCl (Imodium) 2 mg PO PRN PRN PRN Reason: Diarrhea/Loose Stools Loratadine (Claritin) 10 mg PO DAILYPRN PRN PRN Reason: Sinus Symptoms Nitroglycerin (Nitrostat) 0.4 mg SL Q5MIN PRN PRN Reason: Chest Pain Ondansetron HCl (Zofran Odt) 4 mg PO Q6H PRN PRN Reason: Nausea/Vomiting Last Admin: 05/16/19 16:51 Dose: 4 mg Ondansetron HCl (Zofran) 4 mg IVP Q6H PRN PRN Reason: Nausea/Vomiting Senna/Docusate Sodium (Senokot S) 2 tab PO BID PRN PRN Reason: Constipation Last Admin: 05/15/19 09:48 Dose: 2 tab Sodium Chloride ([place] Nasal [place] 0.65%) 0 ml EA NARE QIDPRN PRN PRN Reason: Nasal Congestion Zolpidem Tartrate (Ambien) 5 mg PO HSPRN PRN PRN Reason: Insomnia
[2019-05-17] MEDS: Diabetic Tussin 200 MG/10 ML UDCUP PO PRN (11:02)
[2019-05-17 11:17] LABS: #Eosinphils 0.1 thou/uL (0.0-0.7); #Lymphocytes 1.4 thou/uL (1.20-3.40); #Monocytes 0.9 thou/uL (0.11-0.59); #Neutrophils 6.3 thou/uL (1.40-6.50); %Basophils 0.2 % (0.0-1.0); %Eosinophils 1.6 % (0.0-10.0); %Monocytes 10.4 % (0.0-10.0); %Neutrophils 71.7 % (42.0-75.0); Hemoglobin 8.2 g/dL (14.0-18.0); Mean Corpuscular HGB CONC 33.7 g/dL (32.0-36.0); Mean Corpuscular Hemoglobin 32.1 pg (27.0-31.0); Mean Corpuscular Volume 95.1 fL (78.0-98.0); Platelet Count 162 thou/uL (130-400); RBC Distribution Width 20.9 % (11.5-14.5); Red Blood Cell (RBC) Count 2.56 mill/uL (4.70-6.10); White Blood Cell (WBC) Count 8.8 thou/uL (4.8-10.8)
--- NOTE | 2019-05-17 11:40 | PRG ---
DATE OF SERVICE: 05/17/2019 SUBJECTIVE: A 68-year-old gentleman, being seen for end-stage renal disease. The patient denies nausea, vomiting, or chest pain. OBJECTIVE: CONSTITUTIONAL: Awake, alert. GENERAL APPEARANCE AND MENTAL STATUS: Fair. VITAL SIGNS: Afebrile, pulse 85, breathing 16, blood pressure 135/72. HEAD/NECK: Normocephalic. Atraumatic. EYES: EOMI. No deformity. EARS: Clear. No ulcers. NOSE: Intact. No lesions. MOUTH: Clear. No discharge. THROAT: Clear. No exudate. LUNGS: Clear. No crackles. CARDIAC: S1, S2. No rub. ABDOMEN: Benign. Bowel sounds positive. GENITALIA/RECTUM: Connor absent. BACK/EXTREMITIES: Edema 0+. NEUROLOGICAL: Alert and motor intact. SKIN: LYMPHATICS: LABORATORY DATA: Reviewed. ASSESSMENT AND PLAN: 1. Stage 6 chronic kidney disease, plan dialysis. 2. Hypertension, stable. 3. Anemia, stable. 4. Medications based on GFR, appropriate. 5. Congestive heart failure. We will plan ultrafiltration. The patient has a recurrent hospitalization for pulmonary edema. Job ID: [id number]
--- NOTE | 2019-05-17 13:43 | CON ---
DATE OF CONSULTATION: REASON FOR CONSULT: Need for dialysis access. HISTORY OF PRESENT ILLNESS: Mr. Young is a 68-year-old man with chronic renal failure, who presented to the hospital with worsening shortness of breath and was found to have progression of his renal failure. He had chest pain as well, which has resolved and he states that his breathing is better since coming into the hospital. He denies any fevers, chills, nausea, or vomiting. PAST MEDICAL HISTORY: CHF, coronary artery disease, chronic kidney disease which has progressed to end-stage renal disease, hyperlipidemia, type 2 diabetes, and lymphoma. PAST SURGICAL HISTORY: Coronary artery bypass grafting with one cardiac stent since then Medi-Port placement in the right subclavian, retinal surgery, and cholecystectomy. SOCIAL HISTORY: The patient used to smoke, but quit many years ago. He does not drink or use illicit drugs. FAMILY HISTORY: Positive for hypertension and diabetes. He reports an allergy to penicillin. MEDICATIONS: Outpatient medications include; 1. Coreg. 2. Aspirin. 3. Lipitor. 4. Lasix. 5. Proscar. Inpatient medications include; 1. Allopurinol. 2. Aspirin. 3. Atorvastatin. 4. Calcium carbonate. 5. Carvedilol. 6. Pepcid. 7. Proscar. 8. Lasix. 9. Sliding scale insulin. 10. Imdur. 11. Multiple p.r.n.'s. REVIEW OF SYSTEMS: Ten-system review of systems is negative except per HPI. PHYSICAL EXAMINATION: VITAL SIGNS: The patient has been afebrile through his hospital stay. Heart rate 83, respirations 16, 97% saturated on room air, and blood pressure 135/72. GENERAL: Reveals an elderly man, in no acute distress. He is not flushed or toxic in appearance. He is not jaundiced or icteric. HEENT: Unremarkable. He has a right subclavian MediPort in place. HEART: Regular in its rate and rhythm. I do not appreciate any murmurs, rubs, or gallops. LUNGS: Clear to auscultation anteriorly. ABDOMEN: Soft, nontender, and nondistended. EXTREMITIES: Warm and well perfused. He has ankle edema, but no upper extremity edema. He has palpable cephalic and antecubital veins on both sides and normal bilateral filling on Asher testing. He is right-hand dominant. NEUROLOGIC: No focal deficits. PSYCHIATRIC: Alert, oriented, and appropriate. LABORATORY DATA: White count is normal at 8.8, hematocrit low at 24.3 which is chronic, and platelets 162. Electrolytes are unremarkable. BUN and creatinine are elevated at 47 and 3.88. His BNP on admission was 7297, and his troponins were elevated earlier in his hospital course up to 1.14. Vein mapping showed some thrombus of the elbow on the right cephalic vein and good-sized upper arm basilic veins bilaterally and a reasonable sized cephalic vein on the left. ASSESSMENT AND PLAN: End-stage renal failure, requiring access for hemodialysis. He will need a tunneled hemodialysis catheter for immediate institution of dialysis and an arteriovenous fistula for long-term dialysis access. His left arm cephalic vein appears to be the preferable vein. We will plan on the left arteriovenous fistula and a tunneled hemodialysis catheter likely in the left internal jugular since he has a right subclavian MediPort in place. Inherent risks of both surgeries were discussed with the patient and his . These include, but are not limited to, bleeding, infection, risks of anesthesia, damage to nearby structures, hemothorax, pneumothorax, need for other procedures, failure of the fistula to develop, need for other procedures to obtain or maintain fistula patency and arterial steal, which can lead to ischemic damage to the hand. They understand and accept these risks and wished to proceed. He is on the schedule for later today. Job ID: [id number]
[2019-05-17] MEDS ORDERED: Heparin 10,000 UNITS/ 10 ML VIAL ONE (14:10)
[2019-05-17] MEDS ORDERED: Levofloxacin 500 mg/D5W 100 ml Premix Bag ONE (15:25)
[2019-05-17] MEDS ORDERED: Clindamycin/D5W 900 mg/50 ml Premix Bag ONE (15:25)
[2019-05-17] MEDS ORDERED: Fentanyl 100 MCG/2 ML VIAL ONE (15:30)
[2019-05-17] MEDS ORDERED: Ioversol 68 % 50 ML VIAL ONE (15:39)
[2019-05-17] MEDS ORDERED: Lidocaine 2% PF 5 ML VIAL ONE (15:39)
[2019-05-17] MEDS ORDERED: Protamine Sulfate 50 MG/5 ML VIAL ONE (15:39)
[2019-05-17] MEDS ORDERED: Heparin 5,000 UNITS/ML VIAL ONE (15:39)
[2019-05-17] MEDS ORDERED: Bupivacaine/Epinephrine 0.25% 30 ML VIAL ONE (15:39)
[2019-05-17] MEDS ORDERED: Heparin 10,000 UNITS/1 ML VIAL ONE (15:39)
[2019-05-17] MEDS ORDERED: Sodium Chloride 0.9% 20 ML ONE (17:02)
[2019-05-17] MEDS ORDERED: Promethazine HCl 25 MG/ML VIAL IM PRN (18:45)
[2019-05-17] MEDS ORDERED: Ondansetron HCl/PF 4 MG/2 ML Vial IVP PRN (18:45)
[2019-05-17] MEDS ORDERED: Promethazine HCl 25 MG/ML VIAL SLOW IVP PRN (18:45)
--- NOTE | 2019-05-17 20:44 | RAD ---
PORTABLE CHEST: 05/17/19 HISTORY: Dialysis catheter placement. Heart size is enlarged. Pulmonary vessels are engorged with increased perihilar lung markings consist ent with some pulmonary edema type change. Right sided Mediport catheter is present, unchanged in pos ition. There has been placement of a left sided Hemosplit catheter. The catheter tip is overlying the level of the left brachiocephalic vein. No signs of pneumothorax. IMPRESSION: 1. Placement of a left sided Hemosplit catheter. The catheter tip overlies the upper mediastinum . Appears to be in the region of the left brachiocephalic vein. No pneumothorax. 2. Persistent pulmonary edema change. POS: [facility]
[2019-05-17] MEDS: Atorvastatin Calcium 20 MG TAB PO SCH (22:12)
[2019-05-17] MEDS: Finasteride 5 MG TAB PO SCH (22:13)
[2019-05-18] MEDS: Furosemide 40 MG/4 ML VIAL SLOW IVP SCH ×3 (05:25→16:48)
[2019-05-18 06:16] LABS: Anion Gap 8 mmol/L (10-20); BUN (Urea Nitrogen) 44 mg/dL (8.4-25.7); Calc. Creatinine Clearance 19 mL/min (70-130); Calcium 7.8 mg/dL (7.8-10.44); Carbon Dioxide 31 mmol/L (23-31); Chloride 104 mmol/L (98-107); Estimated GFR-MDRD 15; Glucose 165 mg/dL (80-115); Potassium 3.5 mmol/L (3.5-5.1); Sodium 139 mmol/L (136-145)
[2019-05-18] MEDS: Famotidine 20 MG TAB PO SCH (08:50)
[2019-05-18] MEDS: Allopurinol 100 MG TAB PO SCH (08:50)
[2019-05-18] MEDS: Aspirin 81 mg Enteric Coated Tablet PO SCH (08:50)
[2019-05-18] MEDS: Carvedilol 25 MG TAB PO SCH (08:50)
--- NOTE | 2019-05-18 10:52 | PRG ---
DATE OF SERVICE: 05/18/2019 SUBJECTIVE: This is a 68-year-old gentleman being seen for end-stage renal disease. The patient denies nausea, vomiting, or chest pain. OBJECTIVE: CONSTITUTIONAL: The patient is awake and alert. VITAL SIGNS: Afebrile, pulse 75, breathing 16, and blood pressure 128/60. GENERAL APPEARANCE AND MENTAL STATUS: Fair. HEAD/NECK: Normocephalic. Atraumatic. EYES: EOMI. No deformity. EARS: Clear. No ulcers. NOSE: Intact. No lesions. MOUTH: Clear. No discharge. THROAT: Clear. No exudate. LUNGS: Clear. No crackles. CARDIAC: S1, S2. No rub. ABDOMEN: Benign. Bowel sounds positive. GENITALIA/RECTUM: Connor absent. BACK/EXTREMITIES: Edema 0+. NEUROLOGICAL: Alert and motor intact. SKIN: LYMPHATICS: LABORATORY DATA: Reviewed. ASSESSMENT AND PLAN: 1. Chronic kidney disease, stage 6, plan dialysis. 2. Anemia, stable. 3. Medication based on GFR appropriate. Job ID: [id number]
--- NOTE | 2019-05-18 11:35 | PDOC.PN ---
- Subjective Encounter Start Date: 05/18/19 Encounter Start Time: 08:00 Patient seen and examined. No new complaints. No overnight events - Objective Resuscitation Status - Order Detail: 05/13/19 06:57 Resuscitation Status Routine Resuscitation Status: FULL: Full Resuscitation MAR Reviewed: Yes Vital Signs & Weight: Vital Signs (12 hours) Temp Pulse Resp BP BP Pulse Ox 05/18/19 07:55 98.8 F 80 14 150/78 H 96 05/18/19 04:00 99.4 F 81 16 128/66 96 Weight Weight 169 lb I&O: 05/17/19 05/18/19 05/19/19 06:59 06:59 06:59 Intake Total 620 230 Output Total 2250 800 Balance -1630 -570 Result Diagrams: 05/17/19 11:00 05/18/19 05:21 Additional Labs: Accuchecks 05/18/19 05/18/19 05/17/19 10:47 05:15 20:21 POC Glucose 197 H 189 H 146 H EKG Reviewed by me: Yes Phys Exam - Physical Examination Constitutional: NAD HEENT: PERRLA, moist MMs, sclera anicteric Neck: no JVD, supple Respiratory: no wheezing, no rales, no rhonchi Cardiovascular: RRR, no significant murmur, no rub Gastrointestinal: soft, non-tender, no distention, positive bowel sounds Musculoskeletal: pulses present, edema present Neurological: non-focal, normal sensation Lymphatic: no nodes Psychiatric: normal affect, A&O x 3 Skin: no rash, normal turgor Dx/Plan (1) Acute on chronic combined systolic and diastolic congestive heart failure Code(s): I50.43 - ACUTE ON CHRONIC COMBINED SYSTOLIC AND DIASTOLIC HRT FAIL Status: Acute Comment: (2) Type [address] elevation Code(s): I21.A1 - MYOCARDIAL INFARCTION TYPE 2 Status: Acute (3) Anemia Code(s): D64.9 - ANEMIA, UNSPECIFIED Status: Chronic Qualifiers: (4) B-cell lymphoma Code(s): C85.10 - UNSPECIFIED B-CELL LYMPHOMA, UNSPECIFIED SITE Status: Chronic Comment: (5) CAD (coronary artery disease) Code(s): I25.10 - ATHSCL HEART DISEASE OF [place] CORONARY ARTERY W/O ANG PCTRS Status: Chronic Comment: on ASA,statin,BB. No RADHA-I/ARB due to CKD (6) Chronic kidney disease, stage 4 (severe) Code(s): N18.4 - CHRONIC KIDNEY DISEASE, STAGE 4 (SEVERE) Status: Chronic Comment: stable, present on admission (7) DM2 (diabetes mellitus, type 2) Status: Chronic Comment: controlled (8) HLD (hyperlipidemia) Code(s): E78.5 - HYPERLIPIDEMIA, UNSPECIFIED Status: Chronic Comment: on statin (9) HTN (hypertension) Code(s): I10 - ESSENTIAL (PRIMARY) HYPERTENSION Status: Chronic Comment: monitor vital signs, titrate antihypertensives as needed (10) Hx of CABG Status: Chronic - Plan cont current plan of care, plan discussed w/ family * HD access placed and now HD as per nephrology * outpt HD arrangement as per pillowcase cleaner * medication reviewed as below * symptomatic treatment * updated plan to bedside * stable otherwise and improving. Review of Systems - Review of Systems ENT: negative: Ear Pain, Ear Discharge, Nose Pain, Nose Discharge, Nose Congestion, Mouth Pain, Mouth Swelling, Throat Pain, Throat Swelling, Other Respiratory: negative: Cough, Dry, Shortness of Breath, Hemoptysis, SOB with Excertion, Pleuritic Pain, Sputum, Wheezing Cardiovascular: edema. negative: chest pain, palpitations, orthopnea, paroxysmal nocturnal dyspnea, light headedness, other Gastrointestinal: negative: Nausea, Vomiting, Abdominal Pain, Diarrhea, Constipation, Melena, Hematochezia, Other Genitourinary: negative: Dysuria, Frequency, Incontinence, Hematuria, Retention , Other Musculoskeletal: negative: Neck Pain, Shoulder Pain, Arm Pain, Back Pain, Hand Pain, Leg Pain, Foot Pain, Other - Medications/Allergies Allergies/Adverse Reactions: Allergies Allergy/AdvReac Type Severity Reaction Status Date / Time Penicillins Allergy Severe DIFFICULTY Verified 04/27/19 00:54 BREATHING Medications: Current Medications Acetaminophen (Tylenol) 650 mg PO Q4H PRN PRN Reason: Headache/Fever/Mild Pain (1-3) Hydrocodone Bitart/Acetaminophen ([place] 5/325) 1 tab PO Q4H PRN PRN Reason: Moderate Pain (4-6) Albuterol/Ipratropium (Duoneb) 3 ml NEB [id number] PRN PRN Reason: SOB &/or Wheezing Allopurinol (Zyloprim) 100 mg PO BID [facility] Last Admin: 05/18/19 08:50 Dose: 100 mg Artificial Tears (Tears Naturale) 2 drop EA EYE PRN PRN PRN Reason: Dry Eyes Aspirin (Ecotrin) 81 mg PO DAILY [facility] Last Admin: 05/18/19 08:50 Dose: 81 mg Atorvastatin Calcium (Lipitor) 40 mg PO HS [facility] Last Admin: 05/17/19 22:12 Dose: 40 mg Bisacodyl (Dulcolax) 10 mg [place] DAILYPRN PRN PRN Reason: Constipation Calcium Carbonate (Tums) 1,000 mg PO Q4H PRN PRN Reason: Heartburn or Indigestion Carvedilol (Coreg) 25 mg PO BID [facility] Last Admin: 05/18/19 08:50 Dose: 25 mg Dextrose/Water (Dextrose 50%) 25 gm SLOW IVP PRN PRN PRN Reason: Hypoglycemia Famotidine (Pepcid) 20 mg PO DAILY [facility] Last Admin: 05/18/19 08:50 Dose: 20 mg Finasteride (Proscar) 5 mg PO HS [facility] Last Admin: 05/17/19 22:13 Dose: 5 mg Furosemide (Lasix) 80 mg SLOW IVP 0600,1400 [facility] Last Admin: 05/18/19 05:25 Dose: 80 mg Glucagon (Glucagon) 1 mg IM PRN PRN PRN Reason: Hypoglycemia Guaifenesin (Robitussin Sf) 200 mg PO Q4H PRN PRN Reason: Cough Last Admin: 05/17/19 11:02 Dose: 200 mg Hydralazine HCl (Apresoline) 10 mg SLOW IVP Q4H PRN PRN Reason: SBP > 180 and HR < 70 Dextrose/Water (D5w) 1,000 mls @ 0 mls/hr IV .Q0M PRN PRN Reason: Hypoglycemia Insulin Human Lispro (Humalog) 0 units SC .MODERATE SLIDING SC PRN PRN Reason: Moderate Correctional Scale Insulin Human Lispro (Humalog) 0 units SC .BEDTIME SLIDING SC PRN PRN Reason: Bedtime Correctional Scale Last Admin: 05/14/19 21:11 Dose: 2 units Isosorbide Mononitrate (Imdur Er) 30 mg PO DAILY [facility] Last Admin: 05/18/19 08:50 Dose: 30 mg Loperamide HCl (Imodium) 2 mg PO PRN PRN PRN Reason: Diarrhea/Loose Stools Loratadine (Claritin) 10 mg PO DAILYPRN PRN PRN Reason: Sinus Symptoms Nitroglycerin (Nitrostat) 0.4 mg SL Q5MIN PRN PRN Reason: Chest Pain Ondansetron HCl (Zofran Odt) 4 mg PO Q6H PRN PRN Reason: Nausea/Vomiting Last Admin: 05/16/19 16:51 Dose: 4 mg Ondansetron HCl (Zofran) 4 mg IVP Q6H PRN PRN Reason: Nausea/Vomiting Senna/Docusate Sodium (Senokot S) 2 tab PO BID PRN PRN Reason: Constipation Last Admin: 05/15/19 09:48 Dose: 2 tab Sodium Chloride ([place] Nasal [place] 0.65%) 0 ml EA NARE QIDPRN PRN PRN Reason: Nasal Congestion Zolpidem Tartrate (Ambien) 5 mg PO HSPRN PRN PRN Reason: Insomnia
[2019-05-18] MEDS ORDERED: Activase 2 MG VIAL CATH SCH (14:30)
--- NOTE | 2019-05-18 16:02 | PDOC.OP ---
Operative Note - Operative Note Operative Note: DATE OF PROCEDURE: 05/17/2019 PROCEDURE: Placement of left internal jugular tunneled hemodialysis catheter and left Mabel AV fistula. PREOPERATIVE DIAGNOSIS: End-stage renal failure. POSTOPERATIVE DIAGNOSIS: End-stage renal failure. HISTORY: Patient with chronic renal failure which has progressed to end-stage renal failure. 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 PROCEDURE: After informed consent was obtained and appropriate preoperative antibiotics were administered, the patient was taken to the Operating Room, placed in the supine position and monitored anesthesia care was administered. The neck and chest were prepped and draped in a standard sterile fashion and the patient placed in Trendelenburg position. A sterile ultrasound probe was used to identify the patent compressible left IJ vein which was accessed under direct ultrasound guidance. A wire was threaded through the needle and confirmed by ultrasound to be within the patent compressible vessel with the tip in the vena cava by fluoroscopy. Local anesthesia was infused to the skin and subcutaneous tissues of the left neck and chest. An infraclavicular incision was made and a catheter tunneled from the infraclavicular to the left IJ access site. The left IJ was sequentially dilated over the wire following which a dilator and sheath were placed over the wire and the dilator and wire removed leaving the sheath in place. The catheter was tunneled through the sheath which was then split and removed leaving the catheter in place. This was confirmed by fluoroscopy to be in good position in the superior vena cava with no kinking of the course of the catheter. Both ports easily aspirated dark venous nonpulsatile blood and easily flushed without resistance. Heparin was instilled to the quantity specified on the hub, and the hub was secured to the skin with 3-0 nylon sutures. The skin incision at the neck was closed in two layers with 4-0 Monocryl suture and Dermabond dressings were placed. The skin at the exit site was snugged up around the catheter with 4-0 Monocryl suture and Dermabond was placed there as well. Once the Dermabond was dry, a Biopatch and Tegaderm dressing was placed at the exit site. Attention was then turned to creation of the left upper extremity AV fistula. A preoperative block had been placed by anesthesia and adequacy confirmed. The patient's arm was prepped and draped in standard sterile fashion. The palpable cephalic vein and radial artery were marked on the skin. An incision was made between these 2 structures and dissection carried down to the cephalic vein. This was felt to be of adequate caliber and quality to support an AV fistula. The vein was interrogated with cardiac dilators and easily accepted up to a 3 mm dilator. The vein was flushed with heparinized saline and clamped. The radial artery was identified and dissected free and although calcified was felt to be of adequate caliber and quality to support a fistula. This was dissected free. Heparin was administered systemically and allowed to circulate for 3 minutes. After the heparin had circulated for 3 minutes, the radial artery was clamped proximally and distally. An anterior arteriotomy was created with an 11 blade and extended with Kimball scissors. The vein was spatulated and an end- to-side anastomosis was created with excellent technical result. Prior to tying down the anastomosis, the arterial inflow was released flushing the anastomosis. The anastomosis was then secured and hemostasis was verified. Flow was established first through the fistula following which flow was restored through the artery. The patient had a palpable thrill in the cephalic vein as well as a good Doppler signal to the level of the antecubital fossa, with a palpable distal radial pulse. The wound was irrigated and examined for hemostasis was again confirmed to be excellent. The subcutaneous tissues were reapproximated with a running 3-0 Monocryl sutures and the skin was closed with running 4-0 subcuticular Monocryl suture. Dermabond dressings were placed. Prior to leaving the operating room the fistula was again examined by Doppler and a good bruit confirmed. The patient was then taken to recovery in good condition. Estimated blood loss was minimal. There were no complications. There were no specimens.
--- NOTE | 2019-05-18 16:34 | PDOC.GSPN ---
Surgery Progress Note: Subj - Subjective Narrative: Patient is feeling fine. His fistula has a great thrill. No pain or numbness in his hand. Unfortunately, his catheter is not aspirating well enough to undergo dialysis. On x-ray looks like the tip is pulled back into the brachiocephalic. We'll likely need to replace it with a longer catheter, or place it in the right IJ position. I have him on the OR schedule for tomorrow if dialysis is unsuccessful again in the morning Surgery Progress Note: Obj - Vital signs Vital signs: Vital Signs - Most Recent Temp Pulse Resp BP Pulse Ox 98.2 F 76 16 120/63 100 05/18/19 12:10 05/18/19 12:10 05/18/19 12:10 05/18/19 12:10 05/18/19 12:10 Surgery Progress Note: Results - Labs Result Diagrams: 05/17/19 11:00 05/18/19 05:21 Lab results: Laboratory Results - last 24 hr 05/18/19 05/18/19 05/18/19 05:15 05:21 10:47 Sodium 139 Potassium 3.5 Chloride 104 Carbon Dioxide 31 Anion Gap 8 L BUN 44 H Creatinine 3.91 H Estimated GFR (MDRD) 15 Glucose 165 H POC Glucose 189 H 197 H Calcium 7.8
[2019-05-18] MEDS ORDERED: CABG-Clindamycin/D5W 900 MG in Premix Bag 1 BAG IVPB SCH (16:45)
[2019-05-18] MEDS: HumaLOG 300 UNITS/3 ML VIAL SC PRN (18:44)
[2019-05-18] MEDS ORDERED: Diabetic Tussin 200 MG/10 ML UDCUP ONE (23:36)
[2019-05-19] MEDS ORDERED: Furosemide 40 MG/4 ML VIAL ONE (05:14)
[2019-05-19] MEDS ORDERED: Heparin 10,000 UNITS/1 ML VIAL ONE (09:35)
[2019-05-19] MEDS ORDERED: Sodium Chloride 0.9% 20 ML ONE (09:35)
[2019-05-19] MEDS ORDERED: Bupivacaine 0.25% HCL 30 ML VIAL ONE (09:35)
[2019-05-19] MEDS ORDERED: Lidocaine 2% PF 5 ML VIAL ONE (09:35)
[2019-05-19] MEDS ORDERED: Bupivacaine/Epinephrine 0.25% 30 ML VIAL ONE (09:36)
[2019-05-19] MEDS: Atorvastatin Calcium 20 MG TAB PO SCH ×2 (09:55→22:26)
[2019-05-19] MEDS: Carvedilol 25 MG TAB PO SCH ×3 (09:55→22:26)
[2019-05-19] MEDS: Allopurinol 100 MG TAB PO SCH ×3 (09:55→22:26)
[2019-05-19] MEDS: Furosemide 40 MG/4 ML VIAL SLOW IVP SCH ×2 (09:56→15:06)
[2019-05-19] MEDS: Finasteride 5 MG TAB PO SCH ×2 (09:56→22:26)
[2019-05-19] MEDS ORDERED: Fentanyl 100 MCG/2 ML VIAL ONE (10:05)
[2019-05-19] MEDS ORDERED: Clindamycin/D5W 900 mg/50 ml Premix Bag ONE (10:24)
[2019-05-19] MEDS ORDERED: Levofloxacin 500 mg/D5W 100 ml Premix Bag ONE (10:24)
--- NOTE | 2019-05-19 10:31 | PRG ---
DATE OF SERVICE: 05/19/2019 SUBJECTIVE: A 68-year-old gentleman, being seen for end-stage renal disease. The patient denies any nausea, vomiting, or chest pain. OBJECTIVE: CONSTITUTIONAL: The patient is awake and alert. VITAL SIGNS: Afebrile. Pulse 81, breathing 16, blood pressure 130/63. GENERAL APPEARANCE AND MENTAL STATUS: Fair. HEAD/NECK: Normocephalic. Atraumatic. EYES: EOMI. No deformity. EARS: Clear. No ulcers. NOSE: Intact. No lesions. MOUTH: Clear. No discharge. THROAT: Clear. No exudate. LUNGS: Clear. No crackles. CARDIAC: S1, S2. No rub. ABDOMEN: Benign. Bowel sounds positive. GENITALIA/RECTUM: Connor absent. BACK/EXTREMITIES: Edema 0+. NEUROLOGICAL: Alert and motor intact. SKIN: LYMPHATICS: LABORATORY DATA: Reviewed. ASSESSMENT AND PLAN: 1. Stage 6 chronic kidney disease. Plan dialysis today. We will change catheter if needed. 2. Anemia, stable. 3. Medication based on GFR, appropriate. Job ID: [id number]
[2019-05-19] MEDS: Aspirin 81 mg Enteric Coated Tablet PO SCH (11:12)
[2019-05-19] MEDS: Famotidine 20 MG TAB PO SCH (11:12)
--- NOTE | 2019-05-19 11:33 | PDOC.PN ---
- Subjective Encounter Start Date: 05/19/19 Encounter Start Time: 07:30 pt did not have HD as his HD access not working and again he is planned for surgery - Objective Resuscitation Status - Order Detail: 05/13/19 06:57 Resuscitation Status Routine Resuscitation Status: FULL: Full Resuscitation MAR Reviewed: Yes Vital Signs & Weight: Vital Signs (12 hours) Temp Pulse Resp BP Pulse Ox 05/19/19 08:00 98.0 F 80 14 147/73 H 97 Weight Weight 169 lb I&O: 05/18/19 05/19/19 05/20/19 06:59 06:59 06:59 Intake Total 230 1000 Output Total 800 2575 Balance -570 -1575 Result Diagrams: 05/17/19 11:00 05/18/19 05:21 Additional Labs: Accuchecks 05/19/19 05/18/19 05/18/19 05:39 20:06 18:20 POC Glucose 107 211 H 232 H EKG Reviewed by me: Yes Phys Exam - Physical Examination Constitutional: NAD HEENT: PERRLA, moist MMs, sclera anicteric Neck: no JVD, supple Respiratory: no wheezing, no rales, no rhonchi Cardiovascular: RRR, no significant murmur, no rub Gastrointestinal: soft, non-tender, no distention, positive bowel sounds Musculoskeletal: no edema, pulses present Neurological: non-focal, normal sensation, moves all 4 limbs Lymphatic: no nodes Psychiatric: normal affect, A&O x 3 Skin: no rash, normal turgor Dx/Plan (1) Acute on chronic combined systolic and diastolic congestive heart failure Code(s): I50.43 - ACUTE ON CHRONIC COMBINED SYSTOLIC AND DIASTOLIC HRT FAIL Status: Acute Comment: (2) Type [address] elevation Code(s): I21.A1 - MYOCARDIAL INFARCTION TYPE 2 Status: Acute (3) Anemia Code(s): D64.9 - ANEMIA, UNSPECIFIED Status: Chronic Qualifiers: (4) B-cell lymphoma Code(s): C85.10 - UNSPECIFIED B-CELL LYMPHOMA, UNSPECIFIED SITE Status: Chronic Comment: (5) CAD (coronary artery disease) Code(s): I25.10 - ATHSCL HEART DISEASE OF [place] CORONARY ARTERY W/O ANG PCTRS Status: Chronic Comment: on ASA,statin,BB. No RADHA-I/ARB due to CKD (6) Chronic kidney disease, stage 4 (severe) Code(s): N18.4 - CHRONIC KIDNEY DISEASE, STAGE 4 (SEVERE) Status: Chronic Comment: stable, present on admission (7) DM2 (diabetes mellitus, type 2) Status: Chronic Comment: controlled (8) HLD (hyperlipidemia) Code(s): E78.5 - HYPERLIPIDEMIA, UNSPECIFIED Status: Chronic Comment: on statin (9) HTN (hypertension) Code(s): I10 - ESSENTIAL (PRIMARY) HYPERTENSION Status: Chronic Comment: monitor vital signs, titrate antihypertensives as needed (10) Hx of CABG Status: Chronic - Plan cont current plan of care, plan discussed w/ family * medication reviewed as below * symptomatic treatment * today surgery for HD access * after that HD as per nephrology * I spoke with bedside and updated plan. Review of Systems - Review of Systems ENT: negative: Ear Pain, Ear Discharge, Nose Pain, Nose Discharge, Nose Congestion, Mouth Pain, Mouth Swelling, Throat Pain, Throat Swelling, Other Respiratory: negative: Cough, Dry, Shortness of Breath, Hemoptysis, SOB with Excertion, Pleuritic Pain, Sputum, Wheezing Cardiovascular: negative: chest pain, palpitations, orthopnea, paroxysmal nocturnal dyspnea, edema, light headedness, other Gastrointestinal: negative: Nausea, Vomiting, Abdominal Pain, Diarrhea, Constipation, Melena, Hematochezia, Other Genitourinary: negative: Dysuria, Frequency, Incontinence, Hematuria, Retention , Other Musculoskeletal: negative: Neck Pain, Shoulder Pain, Arm Pain, Back Pain, Hand Pain, Leg Pain, Foot Pain, Other - Medications/Allergies Allergies/Adverse Reactions: Allergies Allergy/AdvReac Type Severity Reaction Status Date / Time Penicillins Allergy Severe DIFFICULTY Verified 04/27/19 00:54 BREATHING Medications: Current Medications Acetaminophen (Tylenol) 650 mg PO Q4H PRN PRN Reason: Headache/Fever/Mild Pain (1-3) Hydrocodone Bitart/Acetaminophen ([place] 5/325) 1 tab PO Q4H PRN PRN Reason: Moderate Pain (4-6) Albuterol/Ipratropium (Duoneb) 3 ml NEB [id number] PRN PRN Reason: SOB &/or Wheezing Allopurinol (Zyloprim) 100 mg PO BID [facility] Last Admin: 05/19/19 11:12 Dose: Not Given Alteplase, Recombinant (Cathflo) 2 mg CATH ASDIR [facility] Artificial Tears (Tears Naturale) 2 drop EA EYE PRN PRN PRN Reason: Dry Eyes Aspirin (Ecotrin) 81 mg PO DAILY [facility] Last Admin: 05/19/19 11:12 Dose: Not Given Atorvastatin Calcium (Lipitor) 40 mg PO HS [facility] Last Admin: 05/19/19 09:55 Dose: Not Given Bisacodyl (Dulcolax) 10 mg [place] DAILYPRN PRN PRN Reason: Constipation Calcium Carbonate (Tums) 1,000 mg PO Q4H PRN PRN Reason: Heartburn or Indigestion Carvedilol (Coreg) 25 mg PO BID [facility] Last Admin: 05/19/19 11:12 Dose: Not Given Dextrose/Water (Dextrose 50%) 25 gm SLOW IVP PRN PRN PRN Reason: Hypoglycemia Famotidine (Pepcid) 20 mg PO DAILY [facility] Last Admin: 05/19/19 11:12 Dose: Not Given Finasteride (Proscar) 5 mg PO HS [facility] Last Admin: 05/19/19 09:56 Dose: Not Given Furosemide (Lasix) 80 mg SLOW IVP 0600,1400 [facility] Last Admin: 05/19/19 09:56 Dose: Not Given Glucagon (Glucagon) 1 mg IM PRN PRN PRN Reason: Hypoglycemia Guaifenesin (Robitussin Sf) 200 mg PO Q4H PRN PRN Reason: Cough Last Admin: 05/17/19 11:02 Dose: 200 mg Hydralazine HCl (Apresoline) 10 mg SLOW IVP Q4H PRN PRN Reason: SBP > 180 and HR < 70 Dextrose/Water (D5w) 1,000 mls @ 0 mls/hr IV .Q0M PRN PRN Reason: Hypoglycemia Clindamycin Phosphate/Dextrose (900 mg/ Device) 50 mls @ 100 mls/hr IVPB ONCALL -OR [facility] Levofloxacin 500 mg/ Device 100 mls @ 100 mls/hr IVPB ONCALL-OR [facility] Insulin Human Lispro (Humalog) 0 units SC .MODERATE SLIDING SC PRN PRN Reason: Moderate Correctional Scale Last Admin: 05/18/19 18:44 Dose: 4 unit Insulin Human Lispro (Humalog) 0 units SC .BEDTIME SLIDING SC PRN PRN Reason: Bedtime Correctional Scale Last Admin: 05/14/19 21:11 Dose: 2 units Isosorbide Mononitrate (Imdur Er) 30 mg PO DAILY [facility] Last Admin: 05/19/19 11:12 Dose: Not Given Loperamide HCl (Imodium) 2 mg PO PRN PRN PRN Reason: Diarrhea/Loose Stools Loratadine (Claritin) 10 mg PO DAILYPRN PRN PRN Reason: Sinus Symptoms Nitroglycerin (Nitrostat) 0.4 mg SL Q5MIN PRN PRN Reason: Chest Pain Ondansetron HCl (Zofran Odt) 4 mg PO Q6H PRN PRN Reason: Nausea/Vomiting Last Admin: 05/16/19 16:51 Dose: 4 mg Ondansetron HCl (Zofran) 4 mg IVP Q6H PRN PRN Reason: Nausea/Vomiting Senna/Docusate Sodium (Senokot S) 2 tab PO BID PRN PRN Reason: Constipation Last Admin: 05/15/19 09:48 Dose: 2 tab Sodium Chloride ([place] Nasal [place] 0.65%) 0 ml EA NARE QIDPRN PRN PRN Reason: Nasal Congestion Sodium Chloride (Flush - Normal Saline) 10 ml IVF Q12HR [facility] Last Admin: 05/19/19 11:12 Dose: Not Given Sodium Chloride (Flush - Normal Saline) 10 ml IVF PRN PRN PRN Reason: Saline Flush Zolpidem Tartrate (Ambien) 5 mg PO HSPRN PRN PRN Reason: Insomnia
[2019-05-19] MEDS ORDERED: Heparin 10,000 UNITS/ 10 ML VIAL ONE (12:00)
--- NOTE | 2019-05-19 13:24 | RAD ---
PORTABLE CHEST ONE VIEW: 05/19/19 at 11:45 a.m. HISTORY: Hemodialysis catheter placement. FINDINGS/IMPRESSION: Comparison made with exam of 05/17/19. Right sided Port-A-Cath remains in place with tip in the projection of the SVC. There is a left sided internal jugular dialysis catheter with tip in the projection of the SVC. No pneumothoraces are seen . There are changes of median sternotomy. The heart size is normal. There is mild pulmonary vascular co ngestion. No large pleural effusions are seen. POS: OFF
[2019-05-19] MEDS: Acetaminophen 325 MG TAB PO PRN (15:59)
[2019-05-19] MEDS ORDERED: Tuberculin PPD 0.1 ML VIAL I-DERMAL ONE (16:30)
[2019-05-19] MEDS: HumaLOG 300 UNITS/3 ML VIAL SC PRN (22:27)
[2019-05-20] MEDS: Furosemide 40 MG/4 ML VIAL SLOW IVP SCH ×2 (05:39→14:05)
[2019-05-20] MEDS ORDERED: Heparin 1,000 UNITS/ML VIAL ONE (11:11)
[2019-05-20] MEDS: Allopurinol 100 MG TAB PO SCH ×2 (11:39→21:09)
[2019-05-20] MEDS: Carvedilol 25 MG TAB PO SCH ×2 (11:39→21:09)
[2019-05-20] MEDS: Famotidine 20 MG TAB PO SCH (11:39)
[2019-05-20] MEDS: Aspirin 81 mg Enteric Coated Tablet PO SCH (11:39)
--- NOTE | 2019-05-20 11:48 | PDOC.PN ---
- Subjective Encounter Start Date: 05/20/19 Encounter Start Time: 07:00 pt seen in HD room, Patient seen and examined. No new complaints. No overnight events - Objective Resuscitation Status - Order Detail: 05/13/19 06:57 Resuscitation Status Routine Resuscitation Status: FULL: Full Resuscitation MAR Reviewed: Yes Vital Signs & Weight: Vital Signs (12 hours) Temp Pulse Resp BP BP BP Pulse Ox 05/20/19 11:34 80 18 144/67 H 100 05/20/19 07:36 100 05/20/19 07:15 98.9 F 80 16 135/65 100 05/20/19 03:41 98.3 F 84 18 133/63 97 Weight Weight 169 lb I&O: 05/19/19 05/20/19 05/21/19 06:59 06:59 06:59 Intake Total 1000 1120 Output Total 2575 1530 Balance -1575 -410 Result Diagrams: 05/17/19 11:00 05/18/19 05:21 Additional Labs: Accuchecks 05/20/19 05/20/19 05/19/19 11:29 05:13 20:28 POC Glucose 75 108 228 H 05/19/19 05/19/19 16:37 12:35 POC Glucose 139 H 105 EKG Reviewed by me: Yes Phys Exam - Physical Examination Constitutional: NAD HEENT: PERRLA, moist MMs, sclera anicteric Neck: no JVD, supple Respiratory: no wheezing, no rales, no rhonchi HD catheter in place Cardiovascular: RRR, no significant murmur, no rub Gastrointestinal: soft, non-tender, no distention, positive bowel sounds Musculoskeletal: no edema, pulses present Neurological: non-focal, normal sensation, moves all 4 limbs Lymphatic: no nodes Psychiatric: normal affect, A&O x 3 Skin: no rash, normal turgor Dx/Plan (1) Acute on chronic combined systolic and diastolic congestive heart failure Code(s): I50.43 - ACUTE ON CHRONIC COMBINED SYSTOLIC AND DIASTOLIC HRT FAIL Status: Acute Comment: (2) Type [address] elevation Code(s): I21.A1 - MYOCARDIAL INFARCTION TYPE 2 Status: Acute (3) Anemia Code(s): D64.9 - ANEMIA, UNSPECIFIED Status: Chronic Qualifiers: (4) B-cell lymphoma Code(s): C85.10 - UNSPECIFIED B-CELL LYMPHOMA, UNSPECIFIED SITE Status: Chronic Comment: (5) CAD (coronary artery disease) Code(s): I25.10 - ATHSCL HEART DISEASE OF [place] CORONARY ARTERY W/O ANG PCTRS Status: Chronic Comment: on ASA,statin,BB. 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 Review of Systems - Review of Systems ENT: negative: Ear Pain, Ear Discharge, Nose Pain, Nose Discharge, Nose Congestion, Mouth Pain, Mouth Swelling, Throat Pain, Throat Swelling, Other Respiratory: negative: Cough, Dry, Shortness of Breath, Hemoptysis, SOB with Excertion, Pleuritic Pain, Sputum, Wheezing Cardiovascular: negative: chest pain, palpitations, orthopnea, paroxysmal nocturnal dyspnea, edema, light headedness, other Gastrointestinal: negative: Nausea, Vomiting, Abdominal Pain, Diarrhea, Constipation, Melena, Hematochezia, Other Genitourinary: negative: Dysuria, Frequency, Incontinence, Hematuria, Retention , Other Musculoskeletal: negative: Neck Pain, Shoulder Pain, Arm Pain, Back Pain, Hand Pain, Leg Pain, Foot Pain, Other - Medications/Allergies Allergies/Adverse Reactions: Allergies Allergy/AdvReac Type Severity Reaction Status Date / Time Penicillins Allergy Severe DIFFICULTY Verified 04/27/19 00:54 BREATHING Medications: Current Medications Acetaminophen (Tylenol) 650 mg PO Q4H PRN PRN Reason: Headache/Fever/Mild Pain (1-3) Last Admin: 06/20/19 15:59 Dose: 650 mg Hydrocodone Bitart/Acetaminophen ([place] 5/325) 1 tab PO Q4H PRN PRN Reason: Moderate Pain (4-6) Albuterol/Ipratropium (Duoneb) 3 ml NEB [id number] PRN PRN Reason: SOB &/or Wheezing Allopurinol (Zyloprim) 100 mg PO BID [facility] Last Admin: 05/20/19 11:39 Dose: 100 mg Alteplase, Recombinant (Cathflo) 2 mg CATH ASDIR [facility] Artificial Tears (Tears Naturale) 2 drop EA EYE PRN PRN PRN Reason: Dry Eyes Aspirin (Ecotrin) 81 mg PO DAILY [facility] Last Admin: 05/20/19 11:39 Dose: 81 mg Atorvastatin Calcium (Lipitor) 40 mg PO HS [facility] Last Admin: 05/19/19 22:26 Dose: 40 mg Bisacodyl (Dulcolax) 10 mg [place] DAILYPRN PRN PRN Reason: Constipation Calcium Carbonate (Tums) 1,000 mg PO Q4H PRN PRN Reason: Heartburn or Indigestion Carvedilol (Coreg) 25 mg PO BID [facility] Last Admin: 05/20/19 11:39 Dose: 25 mg Dextrose/Water (Dextrose 50%) 25 gm SLOW IVP PRN PRN PRN Reason: Hypoglycemia Famotidine (Pepcid) 20 mg PO DAILY [facility] Last Admin: 05/20/19 11:39 Dose: 20 mg Finasteride (Proscar) 5 mg PO HS [facility] Last Admin: 05/19/19 22:26 Dose: 5 mg Furosemide (Lasix) 80 mg SLOW IVP 0600,1400 [facility] Last Admin: 05/20/19 05:39 Dose: 80 mg Glucagon (Glucagon) 1 mg IM PRN PRN PRN Reason: Hypoglycemia Guaifenesin (Robitussin Sf) 200 mg PO Q4H PRN PRN Reason: Cough Last Admin: 05/17/19 11:02 Dose: 200 mg Hydralazine HCl (Apresoline) 10 mg SLOW IVP Q4H PRN PRN Reason: SBP > 180 and HR < 70 Dextrose/Water (D5w) 1,000 mls @ 0 mls/hr IV .Q0M PRN PRN Reason: Hypoglycemia Clindamycin Phosphate/Dextrose (900 mg/ Device) 50 mls @ 100 mls/hr IVPB ONCALL -OR BLANCA Levofloxacin 500 mg/ Device 100 mls @ 100 mls/hr IVPB ONCALL-OR BLANCA Insulin Human Lispro (Humalog) 0 units [place] .MODERATE SLIDING SC PRN PRN Reason: Moderate Correctional Scale Last Admin: 05/19/19 22:27 Dose: 4 unit Insulin Human Lispro (Humalog) 0 units [place] .BEDTIME SLIDING SC PRN PRN Reason: Bedtime Correctional Scale Last Admin: 05/14/19 21:11 Dose: 2 units Isosorbide Mononitrate (Imdur Er) 30 mg PO DAILY [facility] Last Admin: 05/19/19 11:12 Dose: Not Given Loperamide HCl (Imodium) 2 mg PO PRN PRN PRN Reason: Diarrhea/Loose Stools Loratadine (Claritin) 10 mg PO DAILYPRN PRN PRN Reason: Sinus Symptoms Nitroglycerin (Nitrostat) 0.4 mg SL Q5MIN PRN PRN Reason: Chest Pain Ondansetron HCl (Zofran Odt) 4 mg PO Q6H PRN PRN Reason: Nausea/Vomiting Last Admin: 05/16/19 16:51 Dose: 4 mg Ondansetron HCl (Zofran) 4 mg IVP Q6H PRN PRN Reason: Nausea/Vomiting Senna/Docusate Sodium (Senokot S) 2 tab PO BID PRN PRN Reason: Constipation Last Admin: 05/15/19 09:48 Dose: 2 tab Sodium Chloride ([place] Nasal [place] 0.65%) 0 ml EA NARE QIDPRN PRN PRN Reason: Nasal Congestion Sodium Chloride (Flush - Normal Saline) 10 ml IVF Q12HR [facility] Last Admin: 05/20/19 11:40 Dose: 10 ml Sodium Chloride (Flush - Normal Saline) 10 ml IVF PRN PRN PRN Reason: Saline Flush Zolpidem Tartrate (Ambien) 5 mg PO HSPRN PRN PRN Reason: Insomnia
--- NOTE | 2019-05-20 12:29 | PRG ---
DATE OF SERVICE: 05/20/2019 SUBJECTIVE: A 68-year-old gentleman, being seen for end-stage renal disease. The patient denied nausea, vomiting, or chest pain. OBJECTIVE: CONSTITUTIONAL: The patient is awake, alert. VITAL SIGNS: Afebrile, pulse 75, breathing 16, blood pressure 135/65. GENERAL APPEARANCE AND MENTAL STATUS: Fair. HEAD/NECK: Normocephalic. Atraumatic. EYES: EOMI. No deformity. EARS: Clear. No ulcers. NOSE: Intact. No lesions. MOUTH: Clear. No discharge. THROAT: Clear. No exudate. LUNGS: Clear. No crackles. CARDIAC: S1, S2. No rub. ABDOMEN: Benign. Bowel sounds positive. GENITALIA/RECTUM: Connor absent. BACK/EXTREMITIES: Edema 0+. NEUROLOGICAL: Alert and motor intact. SKIN: LYMPHATICS: LABORATORY DATA: Reviewed. ASSESSMENT: 1. Stage 6 chronic kidney disease. Plan hemodialysis. 2. Hypertension, stable. 3. Anemia, stable. 4. Medication based on GFR, appropriate. Job ID: [id number]
[2019-05-20 12:57] LABS: Hemoglobin 8.7 g/dL (14.0-18.0)
[2019-05-20] MEDS: Acetaminophen 325 MG TAB PO PRN (14:08)
[2019-05-20] MEDS: Atorvastatin Calcium 20 MG TAB PO SCH (21:09)
[2019-05-20] MEDS: Finasteride 5 MG TAB PO SCH (21:09)
[2019-05-20] MEDS: HumaLOG 300 UNITS/3 ML VIAL SC PRN (21:18)
[2019-05-21] MEDS: Furosemide 40 MG/4 ML VIAL SLOW IVP SCH ×2 (06:35→12:45)
--- NOTE | 2019-05-21 11:20 | PDOC.PN ---
- Subjective Encounter Start Date: 05/21/19 Encounter Start Time: 07:45 pt seen in HD room, he is tolerating his HD Patient seen and examined. No new complaints. No overnight events - Objective Resuscitation Status - Order Detail: 05/13/19 06:57 Resuscitation Status Routine Resuscitation Status: FULL: Full Resuscitation MAR Reviewed: Yes Vital Signs & Weight: Vital Signs (12 hours) Temp Pulse Resp BP BP BP Pulse Ox 05/21/19 08:00 98.5 F 83 16 130/68 97 05/21/19 03:34 98.2 F 85 16 139/65 95 05/20/19 23:41 84 135/63 Weight Weight 154 lb 5.177 oz I&O: 05/20/19 05/21/19 05/22/19 06:59 06:59 06:59 Intake Total 1120 1440 Output Total 1530 1800 Balance -410 -360 Result Diagrams: 05/20/19 12:40 05/18/19 05:21 Additional Labs: Accuchecks 05/21/19 05/21/19 05/20/19 10:44 05:17 20:19 POC Glucose 119 H 138 H 272 H 05/20/19 05/20/19 16:46 11:29 POC Glucose 148 H 75 EKG Reviewed by me: Yes Phys Exam - Physical Examination Constitutional: NAD HEENT: PERRLA, moist MMs, sclera anicteric Neck: no JVD, supple Respiratory: no wheezing, no rales, no rhonchi mediport+, HD catheter+ Cardiovascular: RRR, no significant murmur, no rub Gastrointestinal: soft, non-tender, no distention, positive bowel sounds Musculoskeletal: no edema, pulses present Neurological: non-focal, normal sensation, moves all 4 limbs Lymphatic: no nodes Psychiatric: normal affect, A&O x 3 Skin: no rash, normal turgor Dx/Plan (1) Acute on chronic combined systolic and diastolic congestive heart failure Code(s): I50.43 - ACUTE ON CHRONIC COMBINED SYSTOLIC AND DIASTOLIC HRT FAIL Status: Acute Comment: he is not on ACEI and ARB due to ESRD and contraindicated (2) Type [address] elevation Code(s): I21.A1 - MYOCARDIAL INFARCTION TYPE 2 Status: Acute (3) Anemia Code(s): D64.9 - ANEMIA, UNSPECIFIED Status: Chronic Qualifiers: (4) B-cell lymphoma Code(s): C85.10 - UNSPECIFIED B-CELL LYMPHOMA, UNSPECIFIED SITE Status: Chronic Comment: (5) CAD (coronary artery disease) Code(s): I25.10 - ATHSCL HEART DISEASE OF [place] CORONARY ARTERY W/O ANG PCTRS Status: Chronic Comment: on ASA,statin,BB. 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 Review of Systems - Review of Systems ENT: negative: Ear Pain, Ear Discharge, Nose Pain, Nose Discharge, Nose Congestion, Mouth Pain, Mouth Swelling, Throat Pain, Throat Swelling, Other Respiratory: negative: Cough, Dry, Shortness of Breath, Hemoptysis, SOB with Excertion, Pleuritic Pain, Sputum, Wheezing Cardiovascular: negative: chest pain, palpitations, orthopnea, paroxysmal nocturnal dyspnea, edema, light headedness, other Gastrointestinal: negative: Nausea, Vomiting, Abdominal Pain, Diarrhea, Constipation, Melena, Hematochezia, Other Genitourinary: negative: Dysuria, Frequency, Incontinence, Hematuria, Retention , Other Musculoskeletal: negative: Neck Pain, Shoulder Pain, Arm Pain, Back Pain, Hand Pain, Leg Pain, Foot Pain, Other - Medications/Allergies Allergies/Adverse Reactions: Allergies Allergy/AdvReac Type Severity Reaction Status Date / Time Penicillins Allergy Severe DIFFICULTY Verified 04/27/19 00:54 BREATHING Medications: Current Medications Acetaminophen (Tylenol) 650 mg PO Q4H PRN PRN Reason: Headache/Fever/Mild Pain (1-3) Last Admin: 05/20/19 14:08 Dose: 650 mg Hydrocodone Bitart/Acetaminophen ([place] 5/325) 1 tab PO Q4H PRN PRN Reason: Moderate Pain (4-6) Albuterol/Ipratropium (Duoneb) 3 ml NEB [id number] PRN PRN Reason: SOB &/or Wheezing Allopurinol (Zyloprim) 100 mg PO BID [facility] Last Admin: 05/20/19 21:09 Dose: 100 mg Alteplase, Recombinant (Cathflo) 2 mg CATH ASDIR [facility] Artificial Tears (Tears Naturale) 2 drop EA EYE PRN PRN PRN Reason: Dry Eyes Aspirin (Ecotrin) 81 mg PO DAILY [facility] Last Admin: 05/20/19 11:39 Dose: 81 mg Atorvastatin Calcium (Lipitor) 40 mg PO HS [facility] Last Admin: 05/20/19 21:09 Dose: 40 mg Bisacodyl (Dulcolax) 10 mg [place] DAILYPRN PRN PRN Reason: Constipation Calcium Carbonate (Tums) 1,000 mg PO Q4H PRN PRN Reason: Heartburn or Indigestion Carvedilol (Coreg) 25 mg PO BID [facility] Last Admin: 05/20/19 21:09 Dose: 25 mg Dextrose/Water (Dextrose 50%) 25 gm SLOW IVP PRN PRN PRN Reason: Hypoglycemia Famotidine (Pepcid) 20 mg PO DAILY [facility] Last Admin: 05/20/19 11:39 Dose: 20 mg Finasteride (Proscar) 5 mg PO HS [facility] Last Admin: 05/20/19 21:09 Dose: 5 mg Furosemide (Lasix) 80 mg SLOW IVP 0600,1400 [facility] Last Admin: 05/21/19 06:35 Dose: 80 mg Glucagon (Glucagon) 1 mg IM PRN PRN PRN Reason: Hypoglycemia Guaifenesin (Robitussin Sf) 200 mg PO Q4H PRN PRN Reason: Cough Last Admin: 05/17/19 11:02 Dose: 200 mg Hydralazine HCl (Apresoline) 10 mg SLOW IVP Q4H PRN PRN Reason: SBP > 180 and HR < 70 Dextrose/Water (D5w) 1,000 mls @ 0 mls/hr IV .Q0M PRN PRN Reason: Hypoglycemia Clindamycin Phosphate/Dextrose (900 mg/ Device) 50 mls @ 100 mls/hr IVPB ONCALL -OR BLANCA Levofloxacin 500 mg/ Device 100 mls @ 100 mls/hr IVPB ONCALL-OR BLNACA Insulin Human Lispro (Humalog) 0 units SC .MODERATE SLIDING SC PRN PRN Reason: Moderate Correctional Scale Last Admin: 05/19/19 22:27 Dose: 4 unit Insulin Human Lispro (Humalog) 0 units SC .BEDTIME SLIDING SC PRN PRN Reason: Bedtime Correctional Scale Last Admin: 05/20/19 21:18 Dose: 2 units Isosorbide Mononitrate (Imdur Er) 30 mg PO DAILY [facility] Last Admin: 05/20/19 14:06 Dose: Not Given Loperamide HCl (Imodium) 2 mg PO PRN PRN PRN Reason: Diarrhea/Loose Stools Loratadine (Claritin) 10 mg PO DAILYPRN PRN PRN Reason: Sinus Symptoms Nitroglycerin (Nitrostat) 0.4 mg SL Q5MIN PRN PRN Reason: Chest Pain Ondansetron HCl (Zofran Odt) 4 mg PO Q6H PRN PRN Reason: Nausea/Vomiting Last Admin: 05/16/19 16:51 Dose: 4 mg Ondansetron HCl (Zofran) 4 mg IVP Q6H PRN PRN Reason: Nausea/Vomiting Senna/Docusate Sodium (Senokot S) 2 tab PO BID PRN PRN Reason: Constipation Last Admin: 05/15/19 09:48 Dose: 2 tab Sodium Chloride ([place] Nasal [place] 0.65%) 0 ml EA NARE QIDPRN PRN PRN Reason: Nasal Congestion Sodium Chloride (Flush - Normal Saline) 10 ml IVF Q12HR [facility] Last Admin: 05/20/19 21:10 Dose: 10 ml Sodium Chloride (Flush - Normal Saline) 10 ml IVF PRN PRN PRN Reason: Saline Flush Zolpidem Tartrate (Ambien) 5 mg PO HSPRN PRN PRN Reason: Insomnia
[2019-05-21] MEDS: Allopurinol 100 MG TAB PO SCH ×2 (11:56→19:51)
[2019-05-21] MEDS: Famotidine 20 MG TAB PO SCH (11:56)
[2019-05-21] MEDS: Aspirin 81 mg Enteric Coated Tablet PO SCH (11:56)
[2019-05-21] MEDS: Carvedilol 25 MG TAB PO SCH ×2 (11:57→20:59)
--- NOTE | 2019-05-21 12:05 | PRG ---
DATE OF SERVICE: 05/21/2019 SUBJECTIVE: A 68-year-old gentleman being seen for end-stage renal disease. The patient denied any nausea, vomiting, or chest pain. OBJECTIVE: CONSTITUTIONAL: On examination, the patient is awake and alert. VITAL SIGNS: Afebrile, pulse 83, breathing 16, and blood pressure 130/60. GENERAL APPEARANCE AND MENTAL STATUS: Fair. HEAD/NECK: Normocephalic. Atraumatic. EYES: EOMI. No deformity. EARS: Clear. No ulcers. NOSE: Intact. No lesions. MOUTH: Clear. No discharge. THROAT: Clear. No exudate. LUNGS: Clear. No crackles. CARDIAC: S1, S2. No rub. ABDOMEN: Benign. Bowel sounds positive. GENITALIA/RECTUM: Connor absent. BACK/EXTREMITIES: Edema 0+. NEUROLOGICAL: Alert and motor intact. LABORATORY DATA: Reviewed. ASSESSMENT AND PLAN: 1. Stage 6 chronic kidney disease. Continue dialysis. 2. Hypertension, stable. 3. Anemia, stable. 4. Medications based on glomerular filtration rate are appropriate. 5. Congestive heart failure. Job ID: [id number]
[2019-05-21] MEDS: Acetaminophen 325 MG TAB PO PRN (12:45)
[2019-05-21] MEDS: Atorvastatin Calcium 20 MG TAB PO SCH (19:50)
[2019-05-21] MEDS: Finasteride 5 MG TAB PO SCH (19:50)
[2019-05-21] MEDS: Diabetic Tussin 200 MG/10 ML UDCUP PO PRN (20:59)
[2019-05-22 04:48] LABS: Anisocytosis SLIGHT = 6-15 cells (100X) (0-5/hpf); Band 1 % (5-11); Eosinophils 1 % (0-10); Hemoglobin 8.2 g/dL (14.0-18.0); Lymphocytes 30 % (21-51); MDiff Complete? YES; Mean Corpuscular HGB CONC 33.8 g/dL (32.0-36.0); Mean Corpuscular Hemoglobin 32.9 pg (27.0-31.0); Mean Corpuscular Volume 97.2 fL (78.0-98.0); Mean Platelet Volume 7.8 fL (7.4-10.4); Monocytes 16 % (0-10); Neutrophil 52 % (42-75); Platelet Count 140 thou/uL (130-400); Platelet Morphology Comment Appears Adequate; RBC Distribution Width 21.3 % (11.5-14.5); Red Blood Cell (RBC) Count 2.49 mill/uL (4.70-6.10); White Blood Cell (WBC) Count 5.8 thou/uL (4.8-10.8)
[2019-05-22 05:00] LABS: Albumin 2.5 g/dL (3.4-4.8); Anion Gap 10 mmol/L (10-20); BUN (Urea Nitrogen) 17 mg/dL (8.4-25.7); BUN/Creatinine Ratio 7.05; Calc. Creatinine Clearance 28 mL/min (70-130); Calcium 8.1 mg/dL (7.8-10.44); Carbon Dioxide 30 mmol/L (23-31); Chloride 103 mmol/L (98-107); Estimated GFR-MDRD 27; Glucose 144 mg/dL (80-115); Phosphorus 3.5 mg/dL (2.3-4.7); Potassium 3.8 mmol/L (3.5-5.1); Sodium 139 mmol/L (136-145)
[2019-05-22] MEDS: Furosemide 40 MG/4 ML VIAL SLOW IVP SCH (05:04)
[2019-05-22] MEDS: Allopurinol 100 MG TAB PO SCH ×2 (09:36→19:51)
[2019-05-22] MEDS: Aspirin 81 mg Enteric Coated Tablet PO SCH (09:37)
[2019-05-22] MEDS: Famotidine 20 MG TAB PO SCH (09:37)
[2019-05-22] MEDS: Carvedilol 25 MG TAB PO SCH ×2 (09:38→19:51)
--- NOTE | 2019-05-22 11:03 | PDOC.PN ---
- Subjective Encounter Start Date: 05/22/19 Encounter Start Time: 07:30 Patient seen and examined. No new complaints. No overnight events - Objective Resuscitation Status - Order Detail: 05/13/19 06:57 Resuscitation Status Routine Resuscitation Status: FULL: Full Resuscitation MAR Reviewed: Yes Vital Signs & Weight: Vital Signs (12 hours) Temp Pulse Resp BP Pulse Ox 05/22/19 09:40 108/56 L 05/22/19 08:13 98.3 F 84 16 108/55 L 100 05/22/19 03:53 98.8 F 83 16 127/61 98 Weight Weight 150 lb 12.739 oz I&O: 05/21/19 05/22/19 05/23/19 06:59 06:59 06:59 Intake Total 1440 920 Output Total 1800 1350 Balance -360 -430 Result Diagrams: 05/22/19 04:01 05/22/19 04:01 Additional Labs: Accuchecks 05/22/19 05/21/19 05/21/19 05:07 20:20 16:57 POC Glucose 131 H 207 H 160 H EKG Reviewed by me: Yes Phys Exam - Physical Examination Constitutional: NAD HEENT: PERRLA, moist MMs, sclera anicteric Neck: no JVD, supple Respiratory: no wheezing, no rales, no rhonchi Cardiovascular: RRR, no significant murmur, no rub Gastrointestinal: soft, non-tender, no distention, positive bowel sounds Musculoskeletal: no edema, pulses present Neurological: non-focal, normal sensation Lymphatic: no nodes Psychiatric: normal affect, A&O x 3 Skin: no rash, normal turgor Dx/Plan (1) Acute on chronic combined systolic and diastolic congestive heart failure Code(s): I50.43 - ACUTE ON CHRONIC COMBINED SYSTOLIC AND DIASTOLIC HRT FAIL Status: Acute Comment: he is not on ACEI and ARB due to ESRD and contraindicated (2) Type [address] elevation Code(s): I21.A1 - MYOCARDIAL INFARCTION TYPE 2 Status: Acute (3) Anemia Code(s): D64.9 - ANEMIA, UNSPECIFIED Status: Chronic Qualifiers: (4) B-cell lymphoma Code(s): C85.10 - UNSPECIFIED B-CELL LYMPHOMA, UNSPECIFIED SITE Status: Chronic Comment: (5) CAD (coronary artery disease) Code(s): I25.10 - ATHSCL HEART DISEASE OF [place] CORONARY ARTERY W/O ANG PCTRS Status: Chronic Comment: on ASA,statin,BB. No RADHA-I/ARB due to CKD (6) Chronic kidney disease, stage 4 (severe) Code(s): N18.4 - CHRONIC KIDNEY DISEASE, STAGE 4 (SEVERE) Status: Chronic Comment: (7) DM2 (diabetes mellitus, type 2) Status: Chronic Comment: controlled (8) HLD (hyperlipidemia) Code(s): E78.5 - HYPERLIPIDEMIA, UNSPECIFIED Status: Chronic Comment: on statin (9) HTN (hypertension) Code(s): I10 - ESSENTIAL (PRIMARY) HYPERTENSION Status: Chronic Comment: (10) Hx of CABG Status: Chronic (11) ESRD (end stage renal disease) Code(s): N18.6 - END STAGE RENAL DISEASE Status: Acute Comment: started HD this admission - Plan cont current plan of care, 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 Review of Systems - Review of Systems ENT: negative: Ear Pain, Ear Discharge, Nose Pain, Nose Discharge, Nose Congestion, Mouth Pain, Mouth Swelling, Throat Pain, Throat Swelling, Other Respiratory: negative: Cough, Dry, Shortness of Breath, Hemoptysis, SOB with Excertion, Pleuritic Pain, Sputum, Wheezing Cardiovascular: negative: chest pain, palpitations, orthopnea, paroxysmal nocturnal dyspnea, edema, light headedness, other Gastrointestinal: negative: Nausea, Vomiting, Abdominal Pain, Diarrhea, Constipation, Melena, Hematochezia, Other Genitourinary: negative: Dysuria, Frequency, Incontinence, Hematuria, Retention , Other Musculoskeletal: negative: Neck Pain, Shoulder Pain, Arm Pain, Back Pain, Hand Pain, Leg Pain, Foot Pain, Other - Medications/Allergies Allergies/Adverse Reactions: Allergies Allergy/AdvReac Type Severity Reaction Status Date / Time Penicillins Allergy Severe DIFFICULTY Verified 04/27/19 00:54 BREATHING Medications: Current Medications Acetaminophen (Tylenol) 650 mg PO Q4H PRN PRN Reason: Headache/Fever/Mild Pain (1-3) Last Admin: 05/21/19 12:45 Dose: 650 mg Hydrocodone Bitart/Acetaminophen ([place] 5/325) 1 tab PO Q4H PRN PRN Reason: Moderate Pain (4-6) Albuterol/Ipratropium (Duoneb) 3 ml NEB [id number] PRN PRN Reason: SOB &/or Wheezing Allopurinol (Zyloprim) 100 mg PO BID [facility] Last Admin: 05/22/19 09:36 Dose: 100 mg Alteplase, Recombinant (Cathflo) 2 mg CATH ASDIR [facility] Artificial Tears (Tears Naturale) 2 drop EA EYE PRN PRN PRN Reason: Dry Eyes Aspirin (Ecotrin) 81 mg PO DAILY [facility] Last Admin: 05/22/19 09:37 Dose: 81 mg Atorvastatin Calcium (Lipitor) 40 mg PO HS [facility] Last Admin: 05/21/19 19:50 Dose: 40 mg Bisacodyl (Dulcolax) 10 mg [place] DAILYPRN PRN PRN Reason: Constipation Calcium Carbonate (Tums) 1,000 mg PO Q4H PRN PRN Reason: Heartburn or Indigestion Carvedilol (Coreg) 25 mg PO BID [facility] Last Admin: 05/22/19 09:38 Dose: Not Given Dextrose/Water (Dextrose 50%) 25 gm SLOW IVP PRN PRN PRN Reason: Hypoglycemia Famotidine (Pepcid) 20 mg PO DAILY [facility] Last Admin: 05/22/19 09:37 Dose: 20 mg Finasteride (Proscar) 5 mg PO HS [facility] Last Admin: 05/21/19 19:50 Dose: 5 mg Furosemide (Lasix) 80 mg SLOW IVP 0600,1400 [facility] Last Admin: 05/22/19 05:04 Dose: 80 mg Glucagon (Glucagon) 1 mg IM PRN PRN PRN Reason: Hypoglycemia Guaifenesin (Robitussin Sf) 200 mg PO Q4H PRN PRN Reason: Cough Last Admin: 05/21/19 20:59 Dose: 200 mg Hydralazine HCl (Apresoline) 10 mg SLOW IVP Q4H PRN PRN Reason: SBP > 180 and HR < 70 Dextrose/Water (D5w) 1,000 mls @ 0 mls/hr IV .Q0M PRN PRN Reason: Hypoglycemia Clindamycin Phosphate/Dextrose (900 mg/ Device) 50 mls @ 100 mls/hr IVPB ONCALL -OR BLANCA Levofloxacin 500 mg/ Device 100 mls @ 100 mls/hr IVPB ONCALL-OR [place] Insulin Human Lispro (Humalog) 0 units [place] .MODERATE SLIDING SC PRN PRN Reason: Moderate Correctional Scale Last Admin: 05/19/19 22:27 Dose: 4 unit Insulin Human Lispro (Humalog) 0 units [place] .BEDTIME SLIDING SC PRN PRN Reason: Bedtime Correctional Scale Last Admin: 05/20/19 21:18 Dose: 2 units Isosorbide Mononitrate (Imdur Er) 30 mg PO DAILY [facility] Last Admin: 05/21/19 11:58 Dose: 30 mg Loperamide HCl (Imodium) 2 mg PO PRN PRN PRN Reason: Diarrhea/Loose Stools Loratadine (Claritin) 10 mg PO DAILYPRN PRN PRN Reason: Sinus Symptoms Nitroglycerin (Nitrostat) 0.4 mg SL Q5MIN PRN PRN Reason: Chest Pain Ondansetron HCl (Zofran Odt) 4 mg PO Q6H PRN PRN Reason: Nausea/Vomiting Last Admin: 05/16/19 16:51 Dose: 4 mg Ondansetron HCl (Zofran) 4 mg IVP Q6H PRN PRN Reason: Nausea/Vomiting Senna/Docusate Sodium (Senokot S) 2 tab PO BID PRN PRN Reason: Constipation Last Admin: 05/15/19 09:48 Dose: 2 tab Sodium Chloride ([place] Nasal [place] 0.65%) 0 ml EA NARE QIDPRN PRN PRN Reason: Nasal Congestion Sodium Chloride (Flush - Normal Saline) 10 ml IVF Q12HR [facility] Last Admin: 05/22/19 09:37 Dose: 10 ml Sodium Chloride (Flush - Normal Saline) 10 ml IVF PRN PRN PRN Reason: Saline Flush Zolpidem Tartrate (Ambien) 5 mg PO HSPRN PRN PRN Reason: Insomnia
--- NOTE | 2019-05-22 12:21 | PRG ---
DATE OF SERVICE: 05/22/2019 SUBJECTIVE: A 68-year-old gentleman being seen for end-stage renal disease. The patient denied any nausea, vomiting, or chest pain. OBJECTIVE: CONSTITUTIONAL: On examination, the patient is awake and alert. VITAL SIGNS: Afebrile, pulse 85, breathing 16, and blood pressure 127/61. GENERAL APPEARANCE AND MENTAL STATUS: Fair. HEAD/NECK: Normocephalic. Atraumatic. EYES: EOMI. No deformity. EARS: Clear. No ulcers. NOSE: Intact. No lesions. MOUTH: Clear. No discharge. THROAT: Clear. No exudate. LUNGS: Clear. No crackles. CARDIAC: S1, S2. No rub. ABDOMEN: Benign. Bowel sounds positive. GENITALIA/RECTUM: Connor absent. BACK/EXTREMITIES: Edema 0+. NEUROLOGICAL: Alert and motor intact. LABORATORY DATA: Reviewed. ASSESSMENT AND PLAN: 1. Stage 6 chronic kidney disease. Continue hemodialysis as per schedule. 2. Hypertension, stable. 3. Anemia, stable. 4. Medications based on glomerular filtration rate are appropriate. 5. Congestive heart failure, improved. Job ID: [id number]
[2019-05-22] MEDS: Finasteride 5 MG TAB PO SCH (19:50)
[2019-05-22] MEDS: Atorvastatin Calcium 20 MG TAB PO SCH (19:50)
[2019-05-23] MEDS: Acetaminophen 325 MG TAB PO PRN (08:06)
[2019-05-23] MEDS ORDERED: Furosemide 80 MG TAB PO SCH (09:00)
--- NOTE | 2019-05-23 11:38 | PRG ---
DATE OF SERVICE: 05/23/2019 SUBJECTIVE: Patient was seen and examined at bedside and overnight events noted. Patient denies any shortness of breath or chest pain or palpitation. No history of nausea or vomiting or diarrhea or fever or chills or cramps. OBJECTIVE: GENERAL: This is a well-built male, in no acute distress. VITAL SIGNS: Temperature 98. 1. Heart rate 54. Respiratory rate 16. Blood pressure 132/64. HEENT: Atraumatic, normocephalic. Oral mucosa is moist NECK: Supple. CARDIOVASCULAR: S1, S2 heard. Rate and rhythm regular. RESPIRATORY: Clear to auscultation. GASTROINTESTINAL: Abdomen is soft. MUSCULOSKELETAL: No tenderness. No edema. DERMATOLOGIC: No skin rash. NEUROLOGIC: Alert and awake and oriented X3. No focal neurologic deficits. Moving all the extremities. PSYCHIATRIC: Mood and affect normal. LABORATORY DATA: Not done today. ASSESSMENT AND PLAN: 1. End-stage renal disease. Continue on dialysis on Thursday, Thursday, Thursday. We will have dialysis nurse notified. 2. Hypertension. 3. Anemia. 4. Cardiorenal syndrome. 5. Fluid overload, seems to be better. Follow with Case Management for outpatient placement. Continue dialysis on Thursday, Thursday, Thursday. Job ID: [id number]
[2019-05-23] MEDS ORDERED: Heparin 10,000 UNITS/ 10 ML VIAL ONE (12:00)
[2019-05-23] MEDS: Carvedilol 25 MG TAB PO SCH (17:09)
[2019-05-23] MEDS: Allopurinol 100 MG TAB PO SCH (17:09)
[2019-05-23 17:49] VITALS: BP 135/65; TEMP 98
[2019-05-23] MEDS: Famotidine 20 MG TAB PO SCH (18:07)
[2019-05-23] MEDS: Aspirin 81 mg Enteric Coated Tablet PO SCH (18:07)
--- NOTE | 2019-05-23 19:03 | CON ---
DATE OF CONSULTATION: REASON FOR CONSULT: Lymphoma. HISTORY OF PRESENT ILLNESS: Mr. Young is a 68-year-old male with diffuse large B-cell lymphoma, currently on chemotherapy consisting of Rituxan, Gemzar, Cytoxan, and vincristine. He has completed three cycles and was due for his fourth last week. However, he presented to the emergency room on 05/12 with congestive heart failure exacerbation, fluid overload. Throughout the course of this hospitalization, he has been diuresed, he is now end-stage renal disease on hemodialysis. He is currently getting his fourth treatment. He was due for cycle 4 day 8 treatment today. We are to see the patient regarding chemotherapy. The patient has struggled with CHF exacerbation throughout treatment. He has also had neutropenia despite Neulasta injections. He has no complaints at this time and feels he will be discharged within the next day or so. PAST MEDICAL HISTORY: 1. Diffuse large B-cell lymphoma. 2. Congestive heart failure. 3. Coronary artery disease. 4. High cholesterol. 5. End-stage renal disease. PAST SURGICAL HISTORY: 1. AV fistula placement. 2. CABG x4. 3. Cardiac catheterization. 4. Eye surgery. 5. Cholecystectomy. ALLERGIES: TO PENICILLIN. CURRENT MEDICATIONS: 1. Allopurinol 100 mg b.i.d. 2. Ecotrin 81 mg daily. 3. Lipitor 40 mg daily. 4. Coreg 25 mg b.i.d. 5. Pepcid 20 mg daily. 6. Proscar 5 mg daily. 7. Lasix 80 mg daily. 8. Insulin p.r.n. 9. Imdur ER 30 mg daily. FAMILY HISTORY: Noncontributory. SOCIAL HISTORY: Former smoker. , has 4 children. Lives with his spouse. No alcohol, tobacco, or illicit drug use. REVIEW OF SYSTEMS: A 10-point review of systems is negative except for noted in HPI. PHYSICAL EXAMINATION: VITAL SIGNS: Temperature is 98.4, pulse is 82, respiratory rate 16, BP is 132/68, and he is 98% on room air. GENERAL: Chronically ill-appearing male, in no acute distress. HEENT: Normocephalic and atraumatic. Pupils are equal and reactive to light. NECK: Supple. CV: Regular rate and rhythm. ABDOMEN: Soft and nontender. Bowel sounds are positive. EXTREMITIES: 1+ bilateral lower extremities. SKIN: He has scattered bruising on his chest and arms. NEUROLOGIC: Nonfocal. PSYCH: He is alert and oriented. PERTINENT LABS AND X-RAYS: Current WBCs 5.8, hemoglobin 8.2, hematocrit 24.2, platelet count is 140,000, 52% neutrophils, and 30% lymphocytes. Sodium is 139, potassium 3.8, chloride 103, CO2 is 30, BUN is 17, creatinine 2.41, calcium is 8.1, phosphorus 3.5. ASSESSMENT: 1. Diffuse large B-cell lymphoma status post cycle 4 of R-GCVP. 2. Congestive heart failure. 3. End-stage renal disease, now on dialysis. DISCUSSION: The patient has received 3/4 cycles of chemotherapy. Plan is to schedule a PET scan in the outpatient setting and based on the results of the scan, determine whether any further chemotherapy is needed. This was discussed with the patient who is in agreement. We will get his scan ordered and notify his family of the followup appointment. No further recommendations at this time. Thank you for the consult. Job ID: [id number]
--- NOTE | 2019-05-23 21:20 | DIS ---
DATE OF ADMISSION: 05/13/2019 DATE OF DISCHARGE: 05/23/2019 PRIMARY CARE PHYSICIAN: Dr. Tatianna Reid. DISCHARGE DISPOSITION: Home with resuming home health. PRIMARY DISCHARGE DIAGNOSES: 1. Acute on chronic combined systolic and diastolic heart failure. 2. Acute on chronic kidney failure, now end-stage renal disease, started hemodialysis. 3. Type [address] elevation. SECONDARY DISCHARGE DIAGNOSES: 1. History of coronary artery bypass graft. 2. Hypertension. 3. Dyslipidemia. 4. Diabetes type 2. 5. Coronary artery disease. 6. B-cell lymphoma. 7. Anemia of chronic disease. 8. Chronic kidney disease stage 4 and now end-stage renal disease. 9. Chronic combined systolic and diastolic heart failure. PRIMARY PROCEDURE/OPERATION: Dr. Samuels did tunneled hemodialysis catheter placement, AV fistula. The patient was getting maintenance hemodialysis after dialysis access. RADIOLOGICAL INVESTIGATION: Chest x-ray showed pulmonary vascular congestion marking. Ultrasound for dialysis access. Chest x-ray after hemodialysis, tunneled catheter placement. SIGNIFICANT LABORATORY DATA: WBC 5.8, hemoglobin 8.2, platelet 140. Sodium 139, potassium 3.8, creatinine 2.41, albumin 2.5. Urinalysis, protein urea. Hepatitis profile negative. DISCHARGE MEDICATION: 1. [place] 1 or 2 tablets q.4 hourly p.r.n. 2. Allopurinol 100 mg b.i.d. 3. Aspirin 325 mg p.o. daily. 4. Coreg 25 mg b.i.d. 5. Proscar 5 mg p.o. daily. 6. Zofran 8 mg t.i.d. p.r.n. 7. Lipitor 40 mg p.o. daily. 8. Tums 1000 mg q.4 hourly p.r.n. 9. Lasix 40 mg p.o. b.i.d. 10. Imdur 30 mg p.o. daily. CONTRAINDICATION: The patient is not on RADHA inhibitor or ARB because of renal failure and that is why contraindicated. CODE STATUS: Full code. INPATIENT BANQUET STEWARDESS: Dr. Noland was following while in hospital for renal function. Dr. Samuels was consulted for dialysis access. Oncology was consulted for his appointment for lymphoma. RESULT PENDING ON DISCHARGE: None. DISCHARGE PLAN: Posthospital, the patient will follow up with Oncology for outpatient PET scan and chemotherapy. The patient will follow up with outpatient dialysis as instructed. He will follow up with [facility] and primary care physician. HOSPITAL COURSE: A 68-year-old male who was admitted by me on May 13, 2019. Please see my HPI for further details. On admission, the patient was having increasing shortness of breath and increasing lower extremity edema. His troponin was significantly abnormal, it was in [id number] VA range, but it was related with type 2 VA. He was also having worsening of renal function. He was initially treated medically while in hospital with IV Lasix with some improvement, but his renal function was going worse side and that is why Nephrology recommended dialysis. At that point, we consulted General Surgery for dialysis access. The patient required 2 times surgery for his tunneled hemodialysis catheter while in hospital. He also had AV fistula placed. After dialysis access, the patient was getting hemodialysis under Nephrology guidance. The patient was euvolemic by the time of discharge. He was on room air and tolerating p.o. well and ambulatory. As he had oncology followup on the day of discharge, we consulted Oncology as well and they recommended outpatient PET scan and further chemotherapy decision afterward. At this point, patient is not on RADHA inhibitor or ARB because of renal failure. If his blood pressure permits, then outpatient basis hydralazine can be started. I have seen and examined the patient bedside today. I have spoken with the patient as well as the patient's and updated plan. PHYSICAL EXAMINATION: VITAL SIGNS: Currently, temperature 98.0, pulse 78, respiratory rate 18, saturation 96%, blood pressure 135/65, weight 150 pounds. GENERAL: The patient is alert, oriented, no acute distress. HEAD: Normocephalic, atraumatic. LUNGS: Clear to auscultation without any rhonchi or rales. CARDIAC: S1, S2. Regular without any significant murmur. ABDOMEN: Soft and benign. EXTREMITIES: No edema. NEUROLOGIC: Nonfocal examination. Job ID: [id number]
== END 2019-05-23 18:42 | disposition home health service (06) | DRG 264 ==
LOC: ERS 23:01 → 2NO 05-13 02:02
PROVIDERS: ADMIT Internal Medicine; ATTEND Internal Medicine
PROC: 031C0ZF Bypass Left Radial Artery to Lower Arm Vein, Open Approach (ICD-10-PCS; principal; 2019-05-17)
PROC: 0JH63XZ Insertion of Tunneled Vascular Access Device into Chest Subcutaneous Tissue and Fascia, Percutaneous Approach (ICD-10-PCS; 2019-05-17)
PROC: 02HV33Z Insertion of Infusion Device into Superior Vena Cava, Percutaneous Approach (ICD-10-PCS; 2019-05-17)
DX: I13.0 Hypertensive heart and chronic kidney disease with heart failure and stage 1 through stage 4 chronic kidney disease, or unspecified chronic kidney disease (principal); I50.43 Acute on chronic combined systolic (congestive) and diastolic (congestive) heart failure; N18.6 End stage renal disease; I21.A1 Myocardial infarction type 2; N17.9 Acute kidney failure, unspecified; N18.4 Chronic kidney disease, stage 4 (severe); T82.49XA Other complication of vascular dialysis catheter, initial encounter; C83.30 Diffuse large B-cell lymphoma, unspecified site; I13.2 Hypertensive heart and chronic kidney disease with heart failure and with stage 5 chronic kidney disease, or end stage renal disease; D63.1 Anemia in chronic kidney disease; I25.10 Atherosclerotic heart disease of native coronary artery without angina pectoris; E78.5 Hyperlipidemia, unspecified; D69.6 Thrombocytopenia, unspecified; E11.22 Type 2 diabetes mellitus with diabetic chronic kidney disease; Z95.1 Presence of aortocoronary bypass graft; Z90.49 Acquired absence of other specified parts of digestive tract; Z87.891 Personal history of nicotine dependence; Z88.0 Allergy status to penicillin; Z79.82 Long term (current) use of aspirin; Z92.21 Personal history of antineoplastic chemotherapy; Y84.1 Kidney dialysis as the cause of abnormal reaction of the patient, or of later complication, without mention of misadventure at the time of the procedure
CPT/HCPCS: 36415; 36416; 71045; 80048; 80053; 80069; 81001; 82550; 82553; 83880; 84100; 84484; 85014; 85018; 85025; 86580; 86704; 86706; 86803; 86850; 86900; 86901; 87340; 93005; 93798; 93970; 94760; 96374; 96375; C1752; C1769; G0365; J1642; J1644; J1940; J1956; J2001; J2405; J2720; J2997; J3010; J3490; Q0162; Q9967; S0020

== ENCOUNTER 2019-06-03 09:23 | Emergency (ER) | payer MEDICARE, OTHER ==
--- NOTE | 2019-06-03 10:31 | RAD ---
EXAM: Single view of the chest HISTORY: Started dialysis with clogged port COMPARISON: 05/19/2019 FINDINGS: Single view of the chest shows a normal sized cardiomediastinal silhouette. The patient is status post sternotomy. The lines and tubes are unchanged in position. There is no evidence of consolidation, mass, or pleural effusion. The bones are unremarkable. IMPRESSION: No evidence of acute cardiopulmonary disease
[2019-06-03 11:32] LABS: #Eosinphils 0.2 thou/uL (0.0-0.7); #Lymphocytes 2.6 thou/uL (1.20-3.40); #Monocytes 0.7 thou/uL (0.11-0.59); #Neutrophils 2.4 thou/uL (1.40-6.50); %Basophils 0.7 % (0.0-1.0); %Eosinophils 3.4 % (0.0-10.0); %Lymphocytes 43.3 % (21.0-51.0); %Monocytes 12.2 % (0.0-10.0); %Neutrophils 40.4 % (42.0-75.0); Hemoglobin 8.4 g/dL (14.0-18.0); Mean Corpuscular HGB CONC 33.6 g/dL (32.0-36.0); Mean Corpuscular Hemoglobin 33.6 pg (27.0-31.0); Mean Platelet Volume 7.3 fL (7.4-10.4); Platelet Count 175 thou/uL (130-400); RBC Distribution Width 20.2 % (11.5-14.5)
[2019-06-03 11:49] LABS: ALT (SGPT) 22 U/L (8-55); AST (SGOT) 19 U/L (5-34); Alkaline Phosphatase 90 U/L (40-150); Anion Gap 13 mmol/L (10-20); BUN (Urea Nitrogen) 38 mg/dL (8.4-25.7); Bilirubin, Total 0.6 mg/dL (0.2-1.2); Calc. Creatinine Clearance 0 mL/min (70-130); Calcium 8.9 mg/dL (7.8-10.44); Carbon Dioxide 28 mmol/L (23-31); Chloride 101 mmol/L (98-107); Estimated GFR-MDRD 19; Globulin 1.7 g/dL (2.4-3.5); Glucose 209 mg/dL (80-115); Potassium 4.2 mmol/L (3.5-5.1); Protein, Total 4.7 g/dL (5.8-8.1); Sodium 138 mmol/L (136-145)
== END 2019-06-03 14:07 | disposition home or self-care (01) ==
LOC: ERS 09:23
DX: T82.41XA Breakdown (mechanical) of vascular dialysis catheter, initial encounter (principal); E11.22 Type 2 diabetes mellitus with diabetic chronic kidney disease; I13.2 Hypertensive heart and chronic kidney disease with heart failure and with stage 5 chronic kidney disease, or end stage renal disease; N18.6 End stage renal disease; I25.10 Atherosclerotic heart disease of native coronary artery without angina pectoris; E78.5 Hyperlipidemia, unspecified; Z79.82 Long term (current) use of aspirin; Z99.2 Dependence on renal dialysis; Z79.899 Other long term (current) drug therapy
CPT/HCPCS: 71045; 80053; 84484; 85025; 93005

== ENCOUNTER 2019-06-09 07:54 | Outpatient (CLI) | payer MEDICARE ==
--- NOTE | 2019-06-09 12:13 | PET ---
Radionucleotide PET scan with CT attenuation correction HISTORY: Diffuse large B-cell lymphoma, extranodal and osseous involvement. COMPARISON: 11/25/2018. FINDINGS: Physiologic uptake within the enteric system and urinary tract. No abnormal uptake is now s een within the cervical, supraclavicular, mediastinal, or abdominal lymph nodes. Physiologic uptake is apparent around the right shoulder musculature. Abnormal areas of osseous uptake are as follows: (Maximum SUV) Cervical spine right lower facet (2.4) Cervical spine left lower facets (2.6) Mid thoracic vertebral body (2.0) Left iliac bone (2.1) No other areas of hypermetabolic activity are reliably demonstrated. Nondiagnostic CT attenuation correction images again show old bilateral rib fractures. Atherosclerosi s. Pneumobilia is now apparent. Partially calcified left renal cyst is similar in appearance to the prio r study. IMPRESSION: Dramatic improvement as detailed above with very mild residual uptake within 4 osseous si judy. No new abnormalities. Deauville score 2..
== END 2019-06-09 07:55 | disposition home or self-care (01) ==
LOC: PET 07:54
PROVIDERS: ATTEND Internal Medicine Hematology & Oncology
DX: C83.39 Diffuse large B-cell lymphoma, extranodal and solid organ sites (principal)
CPT/HCPCS: 78815; A9552

== ENCOUNTER 2019-09-06 13:17 | Outpatient (CLI) | payer MEDICARE, OTHER ==
--- NOTE | 2019-09-06 14:54 | PET ---
Exam: PET SCAN WITH CT ATTENUATION CORRECTION: COMPARISON: 06/09/2019. HISTORY: Diffuse large B cell lymphoma, extranodal and solitary. TECHNIQUE: PET scan with CT attenuation correction was performed from the base of the brain to the pr oximal thighs following intravenous administration of 11.6 mCi of [id number]. FINDINGS: Head and neck: No abnormal FDG localization. Chest: There is a new nodule in the right upper lobe, measuring 2.[address] used for attenuation correction. This nodule is FDG avid with a maximum SUV of 2.9. No other areas of FDG avidity are noted in the lung parenchyma. There is a hypermetabolic precarinal lymph node with a maximum SUV of 2 .7. Abdomen/Pelvis: No abnormal FDG localization. Maximum SUV of the liver is 2.6. Osseous structures: There is stable mild FDG avidity involving multiple cervical facets, right should er, L5 vertebral body and bilateral medial iliac bones adjacent to the SI joint. IMPRESSION: 1. Interval soft tissue mass with associated FDG avidity involving the right upper lobe. There is al so a hypermetabolic precarinal lymph node. 2. Deauville score is 5. Transcribed Date/Time: 09/06/2019 3:14 PM
== END 2019-09-06 13:18 | disposition home or self-care (01) ==
LOC: PET 13:17
PROVIDERS: ATTEND Internal Medicine Hematology & Oncology
DX: C83.39 Diffuse large B-cell lymphoma, extranodal and solid organ sites (principal); R91.8 Other nonspecific abnormal finding of lung field
CPT/HCPCS: 78815; A9552

== ENCOUNTER 2019-09-22 08:50 | Day surgery (SDC) | payer MEDICARE ==
[2019-09-21 15:11] VITALS: BMI 20.6
[2019-09-22 09:14] LABS: INR-International Normal Ratio 1.1; PTT 30.3 SEC (22.9-36.1); Prothrombin Time 14.3 SEC (12.0-14.7)
[2019-09-22 09:24] LABS: Hemoglobin 11.1 g/dL (14.0-18.0); Mean Corpuscular Hemoglobin 34.2 pg (27.0-31.0); Platelet Count 195 thou/uL (130-400); RBC Distribution Width 13.3 % (11.5-14.5); Red Blood Cell (RBC) Count 3.24 mill/uL (4.70-6.10); White Blood Cell (WBC) Count 4.4 thou/uL (4.8-10.8)
[2019-09-22 09:29] LABS: Band 8 % (5-11); Eosinophils 2 % (0-10); Lymphocytes 43 % (21-51); MDiff Complete? YES; Monocytes 14 % (0-10); Neutrophil 30 % (42-75); Platelet Morphology Comment Appears Adequate; Polychromasia SLIGHT = 2-3 cells (100X) (0-2/hpf); Reactive Lymphocytes 1 % (0-10)
--- NOTE | 2019-09-22 11:56 | RAD ---
CHEST RADIOGRAPH INSPIRATORY AND EXPIRATORY SERIES: INDICATION: Status post right lung biopsy. FINDINGS: Inspiratory and expiratory frontal views of the chest do not reveal a significant post procedural pne umothorax. Comparing to the 06/03/2019 exam, postoperative changes of the chest appears stable. No additional significant interval change. IMPRESSION: No postprocedural pneumothorax of significance. Transcribed Date/Time: 09/22/2019 12:01 PM
--- NOTE | 2019-09-22 12:01 | CT ---
CT Lung Perc Biopsy CT GUIDED RIGHT LUNG BIOPSY: CLINICAL HISTORY: Right pulmonary nodule. PROCEDURE: Informed consent was obtained and the patient was escorted to the procedural suite, placed in supine position. The patient's skin was prepped and draped in a standard sterile fashion and topical anesthesia with buffered 1% lidocaine was performed. After a small skin incision was made, an 20-gaug e needle were advanced to the leading edge of the pulmonary nodule of interest. After adequate placement was confirmed with CT fluoroscopic imaging, 2 subsequent core specimens were obtained via p ercutaneous biopsy. These were confirmed with CT fluoroscopic imaging and the specimens were submitted to the pathologist for adequacy. Specimens were deemed adequate for interpretation. Therefo re, all devices were then removed from the patient. No unexpected procedural complications were present. The patient was monitored in radiology holding i n stable condition prior to discharge with family member. IMPRESSION: Technically successful percutaneous right lung biopsy. Pathology results are pending.
[2019-09-22 12:04] VITALS: BP 131/75; TEMP 97.9
--- NOTE | 2019-09-22 13:02 | RAD ---
CHEST INSPIRATORY AND EXPIRATORY VIEWS: CLINICAL HISTORY: Status post right lung biopsy. FINDINGS/IMPRESSION: No evidence of significant post procedural pneumothorax has developed status post right lung biopsy. Transcribed Date/Time: 09/22/2019 1:38 PM
--- NOTE | 2019-09-23 15:38 | CT ---
CT Lung Perc Biopsy CT GUIDED RIGHT LUNG BIOPSY: CLINICAL HISTORY: Right pulmonary nodule. PROCEDURE: Informed consent was obtained and the patient was escorted to the procedural suite, placed in supine position. The patient's skin was prepped and draped in a standard sterile fashion and topical anesthesia with buffered 1% lidocaine was performed. After a small skin incision was made, an 20-gaug e needle were advanced to the leading edge of the pulmonary nodule of interest. After adequate placement was confirmed with CT fluoroscopic imaging, 2 subsequent core specimens were obtained via p ercutaneous biopsy. These were confirmed with CT fluoroscopic imaging and the specimens were submitted to the pathologist for adequacy. Specimens were deemed adequate for interpretation. Therefo re, all devices were then removed from the patient. No unexpected procedural complications were present. The patient was monitored in radiology holding i n stable condition prior to discharge with family member. IMPRESSION: Technically successful percutaneous right lung biopsy. Pathology results are pending. Transcribed Date/Time: 09/23/2019 3:38 PM
== END 2019-09-22 13:25 | disposition home or self-care (01) ==
LOC: CT 08:50
PROVIDERS: ATTEND Internal Medicine Hematology & Oncology
PROC: 0BBC3ZX Excision of Right Upper Lung Lobe, Percutaneous Approach, Diagnostic (ICD-10-PCS; principal; 2019-09-22)
DX: C34.11 Malignant neoplasm of upper lobe, right bronchus or lung (principal); C83.39 Diffuse large B-cell lymphoma, extranodal and solid organ sites; C79.51 Secondary malignant neoplasm of bone; I13.0 Hypertensive heart and chronic kidney disease with heart failure and stage 1 through stage 4 chronic kidney disease, or unspecified chronic kidney disease; E11.22 Type 2 diabetes mellitus with diabetic chronic kidney disease; N18.4 Chronic kidney disease, stage 4 (severe); I50.9 Heart failure, unspecified; I25.10 Atherosclerotic heart disease of native coronary artery without angina pectoris; Z87.891 Personal history of nicotine dependence; Z79.4 Long term (current) use of insulin; Z79.82 Long term (current) use of aspirin; Z88.0 Allergy status to penicillin; Z88.1 Allergy status to other antibiotic agents; Z95.1 Presence of aortocoronary bypass graft; Z95.5 Presence of coronary angioplasty implant and graft; Z99.2 Dependence on renal dialysis
CPT/HCPCS: 32405; 36415; 71045; 77012; 85025; 85610; 85730; 88112; 88305; 88333; 88334; 88341; 88342

== ENCOUNTER 2019-10-05 15:41 | Outpatient (CLI) | payer MEDICARE ==
--- NOTE | 2019-10-05 16:30 | MRI ---
Exam: Brain MRI without contrast HISTORY: Lung cancer. Staging exam. COMPARISON: 05/27/2017 FINDINGS: Calvarial marrow signal intensity: Appropriate T1 signal Gradient echo sequence: No hemorrhage Brain parenchyma: No mass, mass effect or midline shift. Brain volume, age-appropriate. Cortical barajas-white matter differentiation: Preserved Restricted diffusion: Central arterial flow voids are maintained. Small focus of restricted diffusion in the lateral left lentiform nucleus. White matter signal intensities:Scattered T2, FLAIR white matter hyperintensities due to chronic smal l vessel ischemic changes Sinuses: Adequate aeration of the paranasal sinuses and mastoid air cells. IMPRESSION: 1. No obvious parenchymal mass. 2. Possible small focus of restricted diffusion along the lateral aspect of the left lentiform nucleu s. Small infarct is suspected.
== END 2019-10-05 15:42 | disposition home or self-care (01) ==
LOC: TBSIIMAG 15:41
PROVIDERS: ATTEND Internal Medicine Hematology & Oncology
DX: C34.90 Malignant neoplasm of unspecified part of unspecified bronchus or lung (principal); C83.39 Diffuse large B-cell lymphoma, extranodal and solid organ sites
CPT/HCPCS: 70551

== ENCOUNTER 2019-10-07 12:01 | Day surgery (SDC) | payer MEDICARE ==
[2019-10-06 11:12] VITALS: BMI 21.2
--- NOTE | 2019-10-06 13:01 | HP ---
It is for an endoscopic bronchial ultrasound. SERVICE: Pulmonary Medicine. REASON FOR CONSULTATION: Abnormal PET scan. HISTORY OF PRESENT ILLNESS: The patient is a 69-year-old male with past medical history significant for diffuse large B-cell lymphoma. He is status post therapy for that and he had repeat PET testing which demonstrated an interval growth of a right upper lobe 2.6 cm pulmonary nodule. This was subjected to biopsy and was consistent with adenocarcinoma of lung primary. On that PET scan, there was also mediastinal lymph node that was PET positive. As such, he was referred here to determine whether or not that represents a cancerous process and if so, which one, so that appropriate therapy can be initiated. He has a little bit of hemoptysis. He denies any fevers, chills, nausea, vomiting, or diarrhea. He is typically fairly weak after dialysis, but otherwise, he indicates that he is essentially in his usual state of health. He does not have any known diagnosis of COPD or asthma. He is not currently using any respiratory inhalers. PAST MEDICAL HISTORY: 1. End-stage renal disease, on dialysis Thursday, Wednesdays, and Fridays. 2. Coronary artery disease, status post PCI, last in 2006. 3. Dyslipidemia. 4. Hypertension. 5. Type 2 diabetes mellitus. 6. Diffuse large B-cell lymphoma. 7. Adenocarcinoma of the lung. PAST SURGICAL HISTORY: 1. Coronary artery bypass graft x4 vessels. 2. Vitrectomy of the right eye. 3. Cardiac catheterization with PCI. 4. Left eye surgery for retinal detachment. 5. EGD/colonoscopy. 6. ERCP with sphincterotomy. 7. Cholecystectomy. FAMILY HISTORY: Noncontributory. SOCIAL HISTORY: Negative for alcohol, tobacco, or illicit drug use. He is a lifelong nonsmoker. He has no exposure to chemicals, dust, asbestos, or tuberculosis. He indicates he has never been a smoker, but on my intake form, though he does admit to 30 pack-year history. 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 ALLERGIES: PENICILLIN. MEDICATIONS: 1. Coreg 12.5 mg p.o. daily. 2. Atorvastatin 40 mg p.o. daily. 3. Lasix 40 mg p.o. b.i.d. 4. Finasteride 5 mg p.o. daily. REVIEW OF SYSTEMS: General, head, ears, eyes, nose, throat, cardiovascular, respiratory, GI, , musculoskeletal, neurologic, and skin are negative except as mentioned in HPI. PHYSICAL EXAMINATION: VITAL SIGNS: Afebrile, pulse 78, respirations 14, and saturation 99% on room air. GENERAL: The patient is awake and alert, in no apparent distress. HEENT: Normocephalic and atraumatic. Sclerae white. Conjunctivae pink. Oral mucosa is moist without lesions. NECK: There is no cervical lymphadenopathy present. LUNGS: Very good air entry. There are no prolonged expiratory phase, crackles , or wheezing appreciated. HEART: Normal rate and regular. ABDOMEN: Soft, nontender, and nondistended. Bowel sounds are positive. MUSCULOSKELETAL: No cyanosis or clubbing. There is no pitting in the bilateral lower extremities. NEUROLOGIC: Grossly nonfocal. LABORATORY DATA: Biopsy from the right upper lobe transcutaneous approach demonstrates invasive adenocarcinoma, moderately differentiated. No special stains were performed as they had a very small sample and are holding on to x-rays for special testing. IMAGING STUDIES: PET scan demonstrates a new FDG avid right upper lobe pulmonary nodule measuring 1.6 cm. There is also a precarinal lymph node which demonstrates hypermetabolic activity. ASSESSMENT: 1. Adenocarcinoma of the right upper lobe. 2. Mediastinal lymphadenopathy, PET positive. 3. History of diffuse large B-cell lymphoma. 4. End-stage renal disease, on dialysis. DISCUSSION AND PLAN: I will have the patient hold his aspirin today. We will tentatively set up endoscopic bronchial ultrasound for October 07. I will arrange no formal followup with this patient and he will follow up with Dr. De Jesus as previously directed once our sample can be obtained. If he develops any respiratory difficulties, he is more than welcome to return at any point. Job ID: [id number] [facility]
[~2019-10-07 12:01] MED LIST changes: -ADMIXTURE FEE CHEMO IVP SCH; -Acetaminophen 500 MG TAB PO PRN; -CYCLOPHOSPHAMIDE IVPB SCH; -DEXAMETHASONE IVPB SCH; -GEMCITABINE HCL IVPB SCH; -GEMZAR IVPB SCH; +Glycopyrrolate 0.2 MG/ML 5 ML SYRINGE ONE; +Lidocaine 1% PF 5 ML VIAL ONE; -ONDANSETRON IVPB SCH; +PHENYLEPHRINE-NS 100 MCG/ML 10 ML SYRINGE ONE; +PROPOFOL 200 MG/20 ML VIAL ONE; -Rituximab 500 MG, Rituximab 200 MG in Sodium Chloride 0.9% 500 ML IVPB SCH; +Rocuronium Bromide 10 MG/ML (10ML VIAL) ONE; -SODIUM CHLORIDE 0.9% IVPB SCH; -VINCRISTINE SULFATE IVP SCH; -diphenhydrAMINE 25 MG in Sodium Chloride 0.9% 50 ML IVPB SCH; +ePHEDrine/0.9% NaCl/PF SYRINGE 50 mg/10 ml ONE
[2019-10-07 13:29] LABS: Anion Gap 11 mmol/L (10-20); BUN (Urea Nitrogen) 16 mg/dL (8.4-25.7); Calc. Creatinine Clearance 31 mL/min (70-130); Calcium 9.1 mg/dL (7.8-10.44); Carbon Dioxide 32 mmol/L (23-31); Chloride 99 mmol/L (98-107); Estimated GFR-MDRD 33; Glucose 103 mg/dL (83-110); Potassium 3.7 mmol/L (3.5-5.1); Sodium 138 mmol/L (136-145)
[2019-10-07] MEDS ORDERED: Fentanyl 100 MCG/2 ML VIAL ONE (13:34)
--- NOTE | 2019-10-07 14:27 | EKG ---
Test Reason : PREOP Blood Pressure : / mmHG Vent. Rate : 079 BPM Atrial Rate : 079 BPM P-R Int : 148 ms QRS Dur : 106 ms QT Int : 434 ms P-R-T Axes : 067 050 094 degrees QTc Int : 497 ms Normal sinus rhythm Prolonged QT Abnormal ECG When compared with ECG of 03-JUN-2019 10:22, ST no longer depressed in Inferior leads T wave inversion no longer evident in Inferior leads T wave inversion more evident in Lateral leads Confirmed by DR. Shana BRANNON ([id number]) on 10/07/2019 2:26:56 PM Referred By: AJEL Confirmed By:DR. Shana BRANNON
[2019-10-07] MEDS ORDERED: Promethazine HCl 25 MG/ML VIAL IM PRN (15:15)
[2019-10-07] MEDS ORDERED: Promethazine HCl 25 MG/ML VIAL SLOW IVP PRN (15:15)
[2019-10-07] MEDS ORDERED: Ondansetron HCl/PF 4 MG/2 ML Vial IVP PRN (15:15)
[2019-10-07] MEDS ORDERED: Heparin 10,000 UNITS/ 10 ML VIAL ONE (16:11)
--- NOTE | 2019-10-08 00:46 | OP ---
DATE OF PROCEDURE: 10/07/2019 SERVICE: Pulmonary Medicine. PROCEDURE: Fiberoptic bronchoscopy with: 1. Limited visual airway inspection. 2. Endoscopic bronchial ultrasound-guided transbronchial needle aspiration of R10. PREPROCEDURE DIAGNOSES: 1. Lymphoma. 2. Non-small cell lung cancer. 3. Mediastinal lymph node, PET positive. POSTPROCEDURE DIAGNOSES: 1. Lymphoma. 2. Non-small cell lung cancer. 3. Mediastinal lymph node, PET positive. ANESTHESIA: General. PREANESTHESIA ASSESSMENT: H and P had been performed. The patient's medications and allergies were reviewed. Informed consent was obtained after discussing the rationale, risks, benefits of the procedure. Alternative sampling options were also discussed. DESCRIPTION OF PROCEDURE: The patient was positively identified with name and date of . The proposed procedure was verified. After induction with general anesthesia, the curvilinear endoscopic bronchial ultrasound Olympus bronchoscope was introduced through the endotracheal tube and into the tracheobronchial tree. Limited visual airway inspection was performed. No obvious endobronchial disease was present in the trachea, or mainstem bronchi. The bronchoscope was then withdrawn into the trachea and a cezar survey was performed. Endoscopic bronchial ultrasound-guided transbronchial needle aspiration of R10 was completed. There was no significant bleeding post biopsy. The patient maintained stable vital signs throughout the entire procedure without significant desaturation. FINDINGS: 1. No endobronchial disease of the distal trachea or mainstem bronchi on this limited evaluation. 2. Kristal appeared sharp. 3. Rapid on-site pathology demonstrated findings consistent with non-small cell carcinoma. SPECIMENS OBTAINED: 1. FNA of R10 for cytology. 2. FNA of R10 for cell block, currently pending. COMPLICATIONS: None. ESTIMATED BLOOD LOSS: Negligible. DISPOSITION: The patient will be discharged home with postprocedure instructions. He will return to clinic as previously directed with Oncology next week. Job ID: [id number]
== END 2019-10-07 16:30 | disposition home or self-care (01) ==
LOC: SDC 12:01
PROVIDERS: ATTEND Internal Medicine
PROC: 07D78ZX Extraction of Thorax Lymphatic, Via Natural or Artificial Opening Endoscopic, Diagnostic (ICD-10-PCS; principal; 2019-10-07)
DX: C34.11 Malignant neoplasm of upper lobe, right bronchus or lung (principal); I12.0 Hypertensive chronic kidney disease with stage 5 chronic kidney disease or end stage renal disease; E11.22 Type 2 diabetes mellitus with diabetic chronic kidney disease; N18.6 End stage renal disease; I25.10 Atherosclerotic heart disease of native coronary artery without angina pectoris; E78.5 Hyperlipidemia, unspecified; Z79.899 Other long term (current) drug therapy; Z87.891 Personal history of nicotine dependence; Z88.0 Allergy status to penicillin; Z88.1 Allergy status to other antibiotic agents; Z95.1 Presence of aortocoronary bypass graft; Z99.2 Dependence on renal dialysis
CPT/HCPCS: 36415; 80048; 88172; 88177; 88305; 93005; 93010; J1644; J2001; J2704; J3010

== ENCOUNTER 2019-11-01 09:21 | Day surgery (SDC) | payer MEDICARE ==
[~2019-11-01 09:21] MED LIST changes: +CARBOPLATIN IVPB SCH; +Dexamethasone Sod Phosphate 10 MG, Ondansetron 2MG/ML MDV 10 MG in Sodium Chloride 0.9%... IVPB SCH; -Glycopyrrolate 0.2 MG/ML 5 ML SYRINGE ONE; -Lidocaine 1% PF 5 ML VIAL ONE; +PACLitaxel 90 MG in Sodium Chloride 0.9% 250 ML 250 ML IVPB SCH; -PHENYLEPHRINE-NS 100 MCG/ML 10 ML SYRINGE ONE; -PROPOFOL 200 MG/20 ML VIAL ONE; -Rocuronium Bromide 10 MG/ML (10ML VIAL) ONE; +SODIUM CHLORIDE 0.9% IVPB SCH; -ePHEDrine/0.9% NaCl/PF SYRINGE 50 mg/10 ml ONE
[2019-11-01] MEDS ORDERED: Sodium Chloride 0.9% 30 ML ONE (09:36)
[2019-11-01 12:17] VITALS: BP 170/79; TEMP 97.6
== END 2019-11-01 12:52 | disposition home or self-care (01) ==
LOC: ONC/OP 09:21
PROVIDERS: ATTEND Internal Medicine Hematology & Oncology
DX: Z51.11 Encounter for antineoplastic chemotherapy (principal); C83.39 Diffuse large B-cell lymphoma, extranodal and solid organ sites; B02.9 Zoster without complications; C34.11 Malignant neoplasm of upper lobe, right bronchus or lung; Z88.0 Allergy status to penicillin
CPT/HCPCS: 36415; 77386; 80053; 96375; 96413; 96417; J1100; J1642; J2405; J7050; J9045; J9267

== ENCOUNTER 2019-11-08 09:01 | Day surgery (SDC) | payer MEDICARE ==
[2019-11-08] MEDS ORDERED: Sodium Chloride 0.9% 20 ML ONE (09:07)
[2019-11-08 09:40] VITALS: BP 155/72; TEMP 97.6
== END 2019-11-08 13:00 | disposition home or self-care (01) ==
LOC: ONC/OP 09:01
PROVIDERS: ATTEND Internal Medicine Hematology & Oncology
DX: Z51.11 Encounter for antineoplastic chemotherapy (principal); C34.11 Malignant neoplasm of upper lobe, right bronchus or lung; B02.9 Zoster without complications; C83.39 Diffuse large B-cell lymphoma, extranodal and solid organ sites; Z88.0 Allergy status to penicillin; Z88.1 Allergy status to other antibiotic agents
CPT/HCPCS: 36415; 80053; 96375; 96413; 96417; J1100; J1642; J2405; J7050; J9045; J9267

== ENCOUNTER 2019-11-15 12:10 | Day surgery (SDC) | payer MEDICARE ==
[2019-11-15] MEDS ORDERED: Sodium Chloride 0.9% 20 ML ONE (12:29)
[2019-11-15 12:56] VITALS: BP 133/65; TEMP 98
== END 2019-11-15 15:37 | disposition home or self-care (01) ==
LOC: ONC/OP 12:10
PROVIDERS: ATTEND Internal Medicine Hematology & Oncology
DX: Z51.11 Encounter for antineoplastic chemotherapy (principal); C83.39 Diffuse large B-cell lymphoma, extranodal and solid organ sites; B02.9 Zoster without complications; C34.11 Malignant neoplasm of upper lobe, right bronchus or lung; Z88.0 Allergy status to penicillin; Z88.1 Allergy status to other antibiotic agents
CPT/HCPCS: 96375; 96413; 96417; J1100; J1642; J2405; J7050; J9045; J9267

== ENCOUNTER 2019-11-24 09:21 | Day surgery (SDC) | payer MEDICARE ==
[2019-11-24] MEDS ORDERED: Sodium Chloride 0.9% 20 ML ONE (09:25)
[2019-11-24 11:50] VITALS: BP 169/78; TEMP 97.8
== END 2019-11-24 12:17 | disposition home or self-care (01) ==
LOC: ONC/OP 09:21
PROVIDERS: ATTEND Internal Medicine Hematology & Oncology
DX: Z51.11 Encounter for antineoplastic chemotherapy (principal); C83.39 Diffuse large B-cell lymphoma, extranodal and solid organ sites; C34.11 Malignant neoplasm of upper lobe, right bronchus or lung; Z88.0 Allergy status to penicillin; Z88.1 Allergy status to other antibiotic agents
CPT/HCPCS: 36415; 80053; 96375; 96413; 96417; J1100; J1642; J2405; J7050; J9045; J9267

== ENCOUNTER 2019-11-27 04:09 | Inpatient (IN) | payer MEDICARE, OTHER ==
[2019-11-27 05:05] LABS: ALT (SGPT) 23 U/L (8-55); AST (SGOT) 23 U/L (5-34); Albumin 3.4 g/dL (3.4-4.8); Alkaline Phosphatase 79 U/L (40-110); Anion Gap 13 mmol/L (10-20); BUN (Urea Nitrogen) 41 mg/dL (8.4-25.7); Bilirubin, Total 0.7 mg/dL (0.2-1.2); Calc. Creatinine Clearance 0 mL/min (70-130); Calcium 8.7 mg/dL (7.8-10.44); Carbon Dioxide 27 mmol/L (23-31); Chloride 106 mmol/L (98-107); Estimated GFR-MDRD 15; Globulin 2.2 g/dL (2.4-3.5); Glucose 99 mg/dL (83-110); Protein, Total 5.6 g/dL (5.8-8.1); Sodium 142 mmol/L (136-145)
[2019-11-27 05:12] LABS: Band 6 % (5-11); Elliptocytes SLIGHT = 2-5 cells (100X) (0-1/hpf); Eosinophils 1 % (0-10); Hemoglobin 9.1 g/dL (14.0-18.0); Hypochromia SLIGHT = 6-15 cells (100X) (0-5/hpf); Lymphocytes 26 % (21-51); MDiff Complete? YES; Macrocytosis SLIGHT = 6-15 cells (100X) (0-5/hpf); Mean Corpuscular HGB CONC 34.7 g/dL (32.0-36.0); Mean Corpuscular Hemoglobin 35.6 pg (27.0-31.0); Mean Platelet Volume 6.8 fL (7.4-10.4); Metamyelocyte 3 % (0-0); Monocytes 8 % (0-10); Neutrophil 56 % (42-75); Platelet Count 132 thou/uL (130-400); Platelet Morphology Comment Appears Adequate; RBC Distribution Width 13.8 % (11.5-14.5); Red Blood Cell (RBC) Count 2.55 mill/uL (4.70-6.10); Reflex for Review?? YES; White Blood Cell (WBC) Count 1.4 thou/uL (4.8-10.8)
[2019-11-27] MEDS ORDERED: Acetaminophen 500 MG TAB ONE (05:31)
--- NOTE | 2019-11-27 07:39 | RAD ---
EXAM: Single view of the chest HISTORY: Syncope COMPARISON: 06/03/2019 FINDINGS: Single view of the chest shows a normal sized cardiomediastinal silhouette. The patient is status post sternotomy. The dialysis catheter and Mediport are unchanged in position. There is no evidence of consolidation, mass, or pleural effusion. The bones are unremarkable. IMPRESSION: No evidence of acute cardiopulmonary disease
--- NOTE | 2019-11-27 07:39 | RAD ---
EXAM: 3 views of the lumbosacral spine HISTORY: Low back pain COMPARISON: 05/27/2017 FINDINGS: 3 views of the lumbosacral spine slight wedging of the L2 vertebral body of uncertain age. This has occurred since the prior radiograph. There is grade 1 anterolisthesis of L5 on S1. Posterior facet arthrosis is seen in the lower lumbosacral spine. Small osteophytes are also seen in the lower lumbosacral spine. The sacroiliac joints are unremarkable. Vascular calcic lesions are seen in the aorta. IMPRESSION: 1. L2 compression fracture 2. Degenerative changes lumbar spine with grade 1 anterolisthesis of L5 on S1.
--- NOTE | 2019-11-27 07:40 | RAD ---
Exam: Single view of the pelvis HISTORY: Pelvic and hip pain COMPARISON: None FINDINGS: A single view the pelvis shows no evidence of acute fracture or dislocation. No degenerativ e changes seen in either hip. IMPRESSION: No evidence of acute osseous abnormality.
--- NOTE | 2019-11-27 07:40 | RAD ---
EXAM: 2 views of the right hip HISTORY: Right hip pain after fall COMPARISON: None FINDINGS: 2 views of the right hip shows no evidence of acute fracture or dislocation. No degenerativ e changes are seen. No soft tissue swelling is present. Vascular calcifications are seen. IMPRESSION: No evidence of acute osseous abnormality.
--- NOTE | 2019-11-27 07:41 | CT ---
PRELIMINARY REPORT/[facility]/EMERGENCY AFTER HOURS PROCEDURE PROCEDURE: CT Head without Contrast . HISTORY: Syncope and fall prior to admission. TECHNIQUE: Axial images were performed without the administration of IV contrast with or without mult iplanar reformations . COMPARISON: None . FINDINGS: Brain shows no mass, hemorrhage, or acute stroke. Mild periventricular old microischemic changes. Mild diffuse cerebral and cerebellar atrophy. Ventricles are normal size for patient's age. No acute skull or scalp abnormality. Clear visualized sinuses and mastoids. IMPRESSION: No acute intracranial abnormality. Senescent changes . ELECTRONICALLY SIGNED BY: James Ghosh MD Nov 27, 2019 5:25:24 AM ASSEMBLY LINE MACHINE OPERATOR FINAL REPORT EMERGENT AFTER HOURS CT OF THE BRAIN WITHOUT CONTRAST: FINDINGS/IMPRESSION: I agree with the findings and impression given in the preliminary report per [facility] physici an. No evidence of acute intracranial abnormality
--- NOTE | 2019-11-27 08:49 | CT ---
PRELIMINARY REPORT/[facility]/EMERGENCY AFTER HOURS PROCEDURE EXAM: CT Pelvis Without Intravenous Contrast. 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 reports he wa s sitting on the bed and fell forward, hitting the dresser in front of him. reports he fell onto his left side states he was unconscious for 3-4 min. Pt states he felt dizzy prior to falling. Pt reports low back pain and bilateral hip pain. TECHNIQUE: Axial computed tomography images of the pelvis without intravenous contrast. CONTRAST: None. COMPARISON: None provided. FINDINGS: HIP JOINTS: Hip joint spaces unremarkable; Small bilateral inguinal fat filled herniae BONES: Significant osteopenia diffusely. Quite severe degenerative changes of the spine particularly the L5-S1 joint which shows first, nearly second-degree anterolisthesis with very severe facet arthro dameon SOFT TISSUES: The pelvic viscera are unremarkable. No fluid collection, hematoma or mass. No radiopaq ue foreign body or soft tissue gas. MISCELLANEOUS: Appendicolith is seen in the normal sized appendix without adjacent inflammatory can e. Intense atherosclerotic intimal calcinosis including arterial genital calcifications. Is this leatha ent a diabetic? The L4/L5 disc shows a large bulge or herniation, and at both this level and the L5 S1 level signific ant foraminal encroachment by disc and facet hypertrophy is likely. Borderline central stenosis at L4 /L5 is possible due to the disc displacement. IMPRESSION: 1. Subcutaneous ecchymosis lateral to the left greater trochanter. No focal hematoma 2. Spondylolisthesis and disc changes with possible neural stenosis secondary to these likely chronic changes. Consider MRI 3. No acute bone injury or hematoma seen within the pelvis 4. Significant atherosclerosis 5. Appendicolith ELECTRONICALLY SIGNED BY: Yogesh Coyle M.D. Nov 27, 2019 7:09:11 AM COMMUNICATIONS SYSTEMS ENGINEER FINAL REPORT EMERGENT AFTER HOURS CT OF PELVIS WITHOUT CONTRAST: FINDINGS/IMPRESSION: I agree with the findings and impression given in the preliminary report per [facility] physici an. No evidence of acute osseous abnormality. POS: [facility]
[2019-11-27] MEDS ORDERED: Dextrose 5% in Water 1,000 ML IV PRN (08:50)
[2019-11-27] MEDS ORDERED: hydrALAZINE 20 MG/ML VIAL SLOW IVP PRN (08:50)
[2019-11-27] MEDS ORDERED: Ondansetron ODT 4 MG TAB PO PRN (08:50)
[2019-11-27] MEDS ORDERED: Dextrose 50% Abboject 50 ML SYRINGE SLOW IVP PRN (08:50)
--- NOTE | 2019-11-27 09:39 | HP ---
PRIMARY CARE PHYSICIAN: Dr. Reid. CHIEF COMPLAINT: My passed out. HISTORY OF PRESENT ILLNESS: Mr. Young is a very pleasant 69-year-old gentleman, who has a history of end-stage renal disease, coronary artery disease, hypertension, and recently diagnosed with non-small cell carcinoma of the lung. He is currently undergoing both chemotherapy and radiation treatment. He also undergoes dialysis on Thursday, Wednesdays, and Fridays. His says that about 2:00 a.m., the patient woke up saying that his head and stomach was hurting. She checked his blood pressure and noticed that it was high. She gave him carvedilol at that time (she had held it earlier because his blood pressure had been low). She also gave him a Tylenol and he laid back down in bed. About 3:30 in the morning, he got up to go to the bathroom, she says that he made it towards the bathroom, but must turn to come back and then fell and hit the dresser. His neck as well as his arm was scraped up and he was still awake at that time. The patient remembers falling. She says that she went to check on him and said that she was going to call an ambulance. At that time, he was awake, but then shortly after that, his eyes rolled back and he was unresponsive for a few minutes and he was brought to the ER for syncope. She says that prior to this, he had been doing fine. He had a good appetite. He has been eating well. He has been constipated a little bit and she gave him something for constipation which she has had a bowel movement. The patient himself denies any chest pain. No shortness of breath. He denies feeling dizzy or lightheaded, but does admit to this lower abdominal pain. The patient denies any cough or congestion, etc. They also says that he sees Dr. Rutledge and that he had an echocardiogram about 2 months ago and was told that his heart function has actually improved some, otherwise no other complaints. REVIEW OF SYSTEMS: All systems were reviewed and are negative except for that mentioned in the history of present illness. PAST MEDICAL HISTORY: Significant for end-stage renal disease, on hemodialysis; coronary artery disease; hyperlipidemia; hypertension; diabetes mellitus; diffuse B-cell lymphoma; non-small cell carcinoma of the lung or adenocarcinoma of the lung. PAST SURGICAL HISTORY: He has had bypass surgery x4 vessels back in 2006, vitrectomy of the right eye, cardiac catheterization, left eye surgery for retinal detachment. He has had an EGD and colonoscopy, ERCP, and sphincterotomy, as well as a cholecystectomy. FAMILY HISTORY: Significant for diabetes mellitus. ALLERGIES: PENICILLIN PLUS TWO OTHER MEDICATIONS, SHE BELIEVES IS CLINDAMYCIN AND GENTAMICIN. SOCIAL HISTORY: He has 4 children. He is . He is a nonsmoker and nondrinker. His and daughter are surrogate decision makers. He would like to be a full code. MEDICATIONS: Include; 1. Carvedilol 25 mg twice a day. 2. Atorvastatin 40 mg daily. 3. Lasix 40 mg twice daily. 4. Finasteride 5 mg daily. 5. Gabapentin. 6. He is also on Lantus SoloSTAR 12 units in the morning, 3 in the evening as needed. 7. Aspirin 325 mg p.o. daily. PHYSICAL EXAMINATION: GENERAL: He is alert and oriented, but he does fall asleep easily. He is well developed and well nourished. VITAL SIGNS: Blood pressure is 140/73, heart rate 101, respiratory rate of 18, temperature is 99.7. HEENT: His pupils are equal, round, and reactive. Extraocular muscles are intact. His sclerae are anicteric. Throat; no erythema, no exudates. NECK: No adenopathy. He did have a bruit on the right side. CARDIOVASCULAR: He has a normal S1 and S2. No S3 or S4. He did have a grade 2/6 systolic murmur. ABDOMEN: Soft. He did have some right lower quadrant pain. There is no rebound, no guarding, no organomegaly. EXTREMITIES: There is no edema. No calf tenderness. No joint effusions. NEUROLOGICAL: The exam is grossly nonfocal. SKIN AND INTEGUMENT: No skin changes. No rash. LABORATORY RESULTS: White blood cell count was 1.4, hemoglobin 9.1, hematocrit was 26.2, platelet count was 132. He had 56 neutrophils, 6 bands. Sodium is 142, potassium 4.0, chloride is 106, CO2 is 27, BUN of 41, creatinine 3.86, glucose is 99. Troponin is less than 0.010. ASSESSMENT: 1. This is a pleasant 69-year-old gentleman, who presents to the emergency room after suffering a fall at home, the etiology of which is not entirely clear. Given his history of coronary artery disease as well as hypertension and diabetes, a cardiac event is possible. He also has a history of systolic heart failure, but he was told that his ejection fraction had improved. He is also undergoing chemotherapy and his absolute neutrophil count is around 800, so therefore less than a 1000. Therefore, he could be at risk for infection as well and could potentially not amount of fever response. Therefore, the patient will be placed on telemetry for the syncope. We will get an echocardiogram as well as carotid Dopplers. Continue to trend his troponins and monitor him for signs of arrhythmia. 2. Neutropenia. We will place him on neutropenic precautions until his absolute neutrophil count rises above a 1000 and get blood and urine cultures. 3. Abdominal pain. Would like to get a CT scan of his abdomen with contrast. We can hopefully potentially time this before his dialysis tomorrow due to the concern that he could have recurrent lymphoma. His says that the lymphoma has started in the right lower quadrant before. 4. Diabetes mellitus. We will continue his Lantus SoloSTAR, likely decrease the dose to 10 units in the morning as well as a sliding scale insulin. 5. Hypertension. Reconcile and restart his blood pressure medicines and have p.r.n. medicines as well. We will also consult his outcomes manager for continued dialysis. Job ID: [id number]
[2019-11-27] MEDS: Heparin 5,000 UNITS/ML VIAL SC SCH ×3 (11:25→20:34)
[2019-11-27 12:03] LABS: Troponin I 0.018 ng/mL (< 0.028)
[2019-11-27 14:57] VITALS: BMI 21.6
--- NOTE | 2019-11-27 16:11 | CON ---
DATE OF CONSULTATION: 11/27/2019 CONSULTING PHYSICIAN: Anup Crisostomo MD. REASON FOR CONSULTATION: End-stage renal disease evaluation and care. REASON FOR ADMISSION: Syncope. HISTORY OF PRESENT ILLNESS: This is a 69-year-old male with history of end-stage renal disease, coronary artery disease, hyperlipidemia, and hypertension, who came to the hospital with syncope and is being evaluated. Nephrology consulted for maintenance hemodialysis. He gets dialysis on Thursday, Thursday, Thursday. No fever or chills. No nausea or vomiting. The patient is feeling better. PAST MEDICAL HISTORY: Positive for end-stage renal disease, coronary artery disease, hypertension, hyperlipidemia, type 2 diabetes, and lymphoma. PAST SURGICAL HISTORY: CABG, left eye surgery, EGD, colonoscopy, and sphincterotomy. HOME MEDICATIONS: 1. Carvedilol. 2. Atorvastatin. 3. Lasix. 4. Finasteride. 5. Gabapentin. 6. Lantus. 7. Aspirin. ALLERGIES: PENICILLIN, CLINDAMYCIN, AND GENTAMICIN. SOCIAL HISTORY: No smoking, alcohol, or illicit drugs abuse. FAMILY HISTORY: No history of any kidney disease. REVIEW OF SYSTEMS: CONSTITUTIONAL: Negative for weight loss or gain, ability to conduct usual activities. SKIN: Negative for rash, itching. EYES: Negative for double vision, pain. ENT/MOUTH: Negative for nose bleeding, neck stiffness, pain, tenderness. CARDIOVASCULAR: Negative for palpitations, dyspnea on exertion, orthopnea. RESPIRATORY: Negative for shortness of breath, wheezing, cough, hemoptysis, fever or night sweats. GASTROINTESTINAL: Negative for poor appetite, abdominal pain, heartburn, nausea, vomiting, constipation, or diarrhea. GENITOURINARY: Negative for urgency, frequency, dysuria, nocturia. MUSCULOSKELETAL: Negative for pain, swelling. NEUROLOGIC/PSYCHIATRIC: Negative for anxiety, depression. ALLERGY/IMMUNOLOGIC: Negative for skin rash, bleeding tendency. PHYSICAL EXAMINATION: GENERAL: Reveals a well-built male, in no apparent distress. VITAL SIGNS: Temperature 98.6, pulse 78, respiratory rate 18, and blood pressure 174/84. HEENT: Atraumatic, normocephalic. Oral mucosa is moist. NECK: Supple. CARDIOVASCULAR: S1 and S2. Rate and rhythm regular. RESPIRATORY: Clear. GASTROINTESTINAL: Abdomen is soft. MUSCULOSKELETAL: 1+ edema. DERMATOLOGIC: No skin rash. NEUROLOGICAL: Alert and awake. PSYCHIATRIC: Mood and affect are normal. LABORATORY DATA: Hemoglobin is 9.1. Potassium 4.0, BUN is 41, and creatinine is 3.8. ASSESSMENT AND PLAN: 1. End-stage renal disease. Continue on hemodialysis on Thursday, Thursday, Thursday. 2. Edema. 3. Anemia of chronic disease. 4. . 5. History of hypertension. PLAN: To continue dialysis on Thursday, Thursday, and Thursday. Job ID: [id number]
[2019-11-27] MEDS: Carvedilol 25 MG TAB PO SCH (20:31)
[2019-11-27] MEDS: Atorvastatin Calcium 40 MG TAB PO SCH (20:33)
[2019-11-27] MEDS ORDERED: Senokot S 8.6-50 MG TAB PO SCH (23:15)
[2019-11-28 05:06] LABS: #Lymphocytes 0.3 thou/uL (1.20-3.40); #Monocytes 0.2 thou/uL (0.11-0.59); #Neutrophils 0.8 thou/uL (1.40-6.50); %Eosinophils 1.9 % (0.0-10.0); %Lymphocytes 22.3 % (21.0-51.0); %Monocytes 14.4 % (0.0-10.0); %Neutrophils 61.3 % (42.0-75.0); Hemoglobin 8.4 g/dL (14.0-18.0); Mean Corpuscular HGB CONC 34.6 g/dL (32.0-36.0); Mean Corpuscular Hemoglobin 35.6 pg (27.0-31.0); Mean Platelet Volume 6.3 fL (7.4-10.4); Platelet Count 112 thou/uL (130-400); RBC Distribution Width 13.6 % (11.5-14.5); Red Blood Cell (RBC) Count 2.36 mill/uL (4.70-6.10); White Blood Cell (WBC) Count 1.3 thou/uL (4.8-10.8)
[2019-11-28 05:35] LABS: Anion Gap 11 mmol/L (10-20); BUN (Urea Nitrogen) 47 mg/dL (8.4-25.7); Calc. Creatinine Clearance 16 mL/min (70-130); Calcium 8.4 mg/dL (7.8-10.44); Carbon Dioxide 27 mmol/L (23-31); Chloride 105 mmol/L (98-107); Estimated GFR-MDRD 14; Glucose 109 mg/dL (83-110); Potassium 3.9 mmol/L (3.5-5.1); Sodium 139 mmol/L (136-145)
--- NOTE | 2019-11-28 07:44 | ULT ---
EXAM: Carotid ultrasound HISTORY: Syncope COMPARISON: None TECHNIQUE: Multiplanar grayscale and color Doppler images were obtained in a carotid ultrasound. Spec tral analysis of the Doppler waveforms were performed. FINDINGS: Moderate plaque is seen surrounding both carotid bifurcations. The Doppler waveforms are normal in the visualized vessels. Peak systolic velocity in the right internal carotid artery 100 cm/s. Peak systolic velocity in the right common carotid artery 175 cm/s. The right ICA/CCA ratio is 0.6. Peak systolic velocity in the left internal carotid artery 108 cm/s. Peak systolic velocity in the left common carotid artery 119 cm/s. The left ICA/CCA ratio is 0.9. Both vertebral arteries demonstrate antegrade flow without focal stenosis IMPRESSION: No evidence of hemodynamically significant stenosis.
[2019-11-28] MEDS ORDERED: Pregabalin 50 MG CAP PO PRN (07:46)
[2019-11-28] MEDS ORDERED: Heparin 10,000 UNITS/1 ML VIAL ONE (09:27)
[2019-11-28] MEDS: Timolol 0.5% Ophth Soln 5 ml Bottle EA EYE SCH (09:35)
--- NOTE | 2019-11-28 11:44 | PDOC.HOSPP ---
- Subjective Encounter Date: 11/28/19 Encounter Time: 11:43 Subjective: Mr. Young was seen today in follow-up of syncopal episode. He says he feels fine today. He denies any abdominal pain and wants to eat. In further questioning, he tels me he just went out yesterday, but did not loose consciousness at first. He notes difficulty with leg weakness off and on which he attributed to chemotherapy. He - Objective Vital Signs & Weight: Vital Signs (12 hours) Temp Pulse Resp BP BP BP BP 11/28/19 08:02 98.2 F 84 18 149/70 H 102/50 L 147/67 H 11/28/19 04:10 98.9 F 88 18 111/53 L Pulse Ox 11/28/19 08:02 99 11/28/19 04:10 93 L Weight Admit Weight 150 lb 11.2 oz Weight 153 lb 11.2 oz I&O: 11/27/19 11/28/19 11/29/19 06:59 06:59 06:59 Intake Total 780 Output Total 450 Balance 330 Result Diagrams: 11/28/19 04:49 11/28/19 04:49 Additional Labs: Accuchecks 11/27/19 11/27/19 11/27/19 20:58 16:42 11:52 POC Glucose 185 H 181 H 88 Hospitalist ROS - Medication Medications: Active Medications Generic Name Dose Route Start Last Admin Trade Name Freq PRN Reason Stop Dose Admin Atorvastatin Calcium 40 mg 11/27/19 21:00 11/27/19 20:33 Lipitor PO 40 mg HS BLANCA Administration Carvedilol 12.5 mg 11/27/19 21:00 11/27/19 20:31 Coreg PO 12.5 mg QPM BLANCA Administration Pantoprazole Sodium 40 mg 11/28/19 09:00 11/28/19 09:35 Protonix PO 40 mg DAILY BLANCA Administration Timolol Maleate 1 drop 11/28/19 09:00 11/28/19 09:35 Timoptic 0.5% Ophth Soln EA EYE 1 drop DAILY BLANCA Administration - Exam Eye: PERRL Heart: RRR, no murmur, no gallops, no rubs, normal peripheral pulses Respiratory: CTAB, no wheezes, no rales, no ronchi, normal chest expansion, no tachypnea, normal percussion Gastrointestinal: soft, non-tender, non-distended, normal bowel sounds, no palpable masses Extremities: no cyanosis, no edema Neurological: cranial nerve grossly intact Musculoskeletal: normal strength (petallar reflex is 2+ and symmetric.), no muscle wasting Hosp A/P (1) Syncope Code(s): R55 - SYNCOPE AND COLLAPSE Status: Acute (2) Frequent falls Code(s): R29.6 - REPEATED FALLS Status: Acute (3) ESRD (end stage renal disease) Code(s): N18.6 - END STAGE RENAL DISEASE Status: Acute (4) B-cell lymphoma Code(s): C85.10 - UNSPECIFIED B-CELL LYMPHOMA, UNSPECIFIED SITE Status: Chronic (5) DM2 (diabetes mellitus, type 2) Status: Chronic (6) HTN (hypertension) Code(s): I10 - ESSENTIAL (PRIMARY) HYPERTENSION Status: Chronic - Plan * Syncope- work-up is in progress * Frequent falls- i suspect Gabapentin may have played a role, and he also has severe Lumbar spine disease on CT scan- and his legs may have been weak due to this as well- will check an MRI to further characterize his pathology there * HTN- blood pressure is better * ESRD- continue Hemodialysis * Pancytopenia- likely due to chemotherapy- No fever, and cultures are negative - continue Neutropenic precautions while the ANC is below 1K * DM- blood glucose is stable
--- NOTE | 2019-11-28 12:11 | PRG ---
DATE OF SERVICE: 11/28/2019 SUBJECTIVE: Patient was seen and examined at bedside and overnight events noted. Patient denies any shortness of breath or chest pain or palpitation. No history of nausea or vomiting or diarrhea or fever or chills or cramps. OBJECTIVE: GENERAL: This is a well-built male, in no apparent distress. VITAL SIGNS: Temperature 98.2, pulse 84, respiratory rate 18, blood pressure 149/70. HEENT: Atraumatic, normocephalic. Oral mucosa is moist NECK: Supple. CARDIOVASCULAR: S1, S2 heard. Rate and rhythm regular. RESPIRATORY: Clear to auscultation. GASTROINTESTINAL: Abdomen is soft. MUSCULOSKELETAL: No tenderness. No edema. DERMATOLOGIC: No skin rash. NEUROLOGIC: Alert and awake and oriented X3. No focal neurologic deficits. Moving all the extremities. PSYCHIATRIC: Mood and affect normal. LABORATORY DATA: Potassium 3.9, BUN is 47, creatinine is 4.1. ASSESSMENT AND PLAN: 1. End-stage renal disease. Continue on hemodialysis as tolerated. 2. edema, remove fluid. 3. Anemia. 4. History of hypertension. PLAN: Plan to continue dialysis Thursday, Thursday, Thursday as tolerated. Job ID: [id number]
--- NOTE | 2019-11-28 14:00 | MRI ---
MRI lumbar spine without contrast: 11/28/2019 HISTORY: L2 compression fracture noted on radiographs of the lumbar spine performed 11/27/2019 Back pain TECHNIQUE: Multiplanar multisequence MR imaging of the lumbar spine obtained without contrast FINDINGS: On the basis of 5 lumbar type vertebral bodies, conus medullaris terminates at the T12-L1 l evel. T12-L1: Intervertebral disc height and signal intensity is within normal limits with no significant c entral canal or neural foraminal stenosis. L1-2: There is an acute burst fracture of the L2 vertebral body. Loss of vertebral body height centra lly measures approximately 25%. There is minimal retropulsion with no associated central canal stenosis at the level of the L2 fracture. At the L1-2 level, intervertebral disc height and signal in tensity appears within normal limits and there is no significant central canal or neural foraminal stenosis. L2-3: Intervertebral disc height and signal intensity grossly unremarkable. No significant central ca nal or neural foraminal stenosis. L3-4: There is disc space narrowing and mild disc bulge. No associated central canal stenosis. Mild b ilateral facet hypertrophy with mild bilateral neural foraminal stenosis. L4-5: Bilateral facet hypertrophy. Disc space narrowing and disc desiccation with mild disc bulge. No associated central canal stenosis. Mild bilateral neural foraminal stenosis. L5-S1: Anterolisthesis of L5 on S1 noted, measuring approximately 1.1 cm. Bilateral facet hypertrophy is noted. There is mild neural foraminal stenosis on the right. There is severe neural foraminal stenosis on the left and there is a mild to moderate degree of left lateral recess stenosis on the ba sis of disc bulge and ligamentum flavum hypertrophy. Numerous nonspecific T2 hyperintense lesions are noted within both kidneys, left greater than right. Of note, one of these lesions within the left kidney is T1 hyperintense and measures 3.6 cm. This is not consistent with a cyst. This could represent a solid mass or a complex/hemorrhagic/proteinaceo us cyst. Of note, there is heterogeneity of the marrow signal within the L5 and S2 vertebral bodies with nonsp ecific decreased T1 and T2 signal. The patient has a history of malignancy and thus these findings may be on the basis of metastatic disease. IMPRESSION: Acute burst fracture at L2 with mild loss of central vertebral body height loss. Slight r etropulsion with no associated central canal stenosis at this level. Multilevel degenerative change within the lumbar spine Nonspecific T1 hyperintense left renal lesion for which follow-up CT examination is advised if not pe rformed in the past. Possible osseous metastatic disease, activity uncertain. Correlation with whole body bone scan advise d if clinically warranted. Of note, the patient did undergo PET scan performed 09/06/2019.
[2019-11-28] MEDS: Atorvastatin Calcium 40 MG TAB PO SCH (21:48)
[2019-11-28] MEDS: Finasteride 5 MG TAB PO SCH (21:48)
[2019-11-28] MEDS: Senokot S 8.6-50 MG TAB PO SCH (21:48)
[2019-11-28] MEDS: Latanoprost 0.005% Ophth Soln 2.5 ml Bottle EA EYE SCH (21:49)
[2019-11-28] MEDS: Carvedilol 25 MG TAB PO SCH (21:49)
[2019-11-28] MEDS: HumaLOG 300 UNITS/3 ML VIAL SC PRN (21:50)
--- NOTE | 2019-11-28 22:01 | CON ---
DATE OF CONSULTATION: REASON FOR CONSULTATION: Bone lesions. HISTORY OF PRESENT ILLNESS: Mr. Young is a pleasant 69-year-old gentleman with a past medical history of stage IV diffuse large B-cell lymphoma, he was a double express and ABC type. He underwent treatment with chemotherapy, which was completed in March. He had a PET scan in May 2019, which showed mild residual uptake. He did have 4 sites in his spine, that had an SUV ranging from 2 to 2.6. In August, a repeat PET showed a 2.6 cm nodule in his right upper lobe with precarinal lymph nodes. He underwent EBUS, which was positive for adenocarcinoma. He is currently receiving concurrent chemoradiation therapy. He has had 3 cycles of carboplatin and Taxol. He has been struggling with neuropathy mostly in his fingers. He also had shingles and was placed on gabapentin for postherpetic neuralgia. This has been causing some dizziness and weakness in his legs. Unfortunately, he had a fall from a standing position and was transported through the emergency room for evaluation. He was admitted for weakness. He was pancytopenic secondary to chemotherapy. He underwent scanning, which showed an L2 compression fracture and degenerative changes on x-ray. He then underwent a lumbar spine MRI. He had acute burst fracture of the L2. There was a nonspecific T1, left renal lesion. There was possible bone metastases in the L5-S2 and T1-T2 area. There was concern for a new bony metastatic disease. The patient is seen in dialysis. He denies any complaints at this time other than generalized fatigue. PAST MEDICAL HISTORY: 1. Stage IV diffuse large B-cell lymphoma, double expressor/ABC type. 2. Stage III adenocarcinoma of the lung. 3. End-stage renal disease, on hemodialysis. 4. Type-2 diabetes. 5. Hypertension. 6. Coronary artery disease. 7. Hyperlipidemia. PAST SURGICAL HISTORY: 1. CABG. 2. Cardiac catheterization. 3. Multiple eye surgeries. 4. Cholecystectomy. ALLERGIES: PENICILLIN. HOME MEDICATIONS: 1. Aspirin. 2. Atorvastatin. 3. Carvedilol. 4. Finasteride. 5. Furosemide. FAMILY HISTORY: Father had thyroid. Brother had pancreatic cancer. SOCIAL HISTORY: , has 4 children, lives with his spouse, 30 pack-year history of smoking. No alcohol or illicit drug use. REVIEW OF SYSTEMS: A 10-point review of systems is negative except for noted in HPI. PHYSICAL EXAMINATION: VITAL SIGNS: Temperature is 98.3, pulse is 82, respiratory rate 20, blood pressure is 146/74. He is 95% on room air. GENERAL: This is a chronically ill-appearing male, in no acute distress. HEENT: Normocephalic, atraumatic. Pupils are equal and reactive to light. NECK: Supple. CV: Regular rate and rhythm. LUNGS: Clear. ABDOMEN: Soft and nontender. EXTREMITIES: He has 2+ bilateral lower extremity. SKIN: He has a rash on his right upper back consistent with his prior shingles. HEMATOLOGICAL: No petechiae or purpura. NEUROLOGICAL: Nonfocal. PERTINENT LABS AND X-RAYS: Current WBCs 1.3, hemoglobin 8.4, hematocrit 24.3, platelet count is 112,000, he has 61% neutrophils, 22% lymphocytes, 14% monocytes. Sodium 139, potassium 3.9, chloride 105, CO2 is 27, BUN is 47, creatinine 4.16, calcium is 8.4, bilirubin is 0.7, AST is 23, ALT is 23, alkaline phosphatase is 79, serum total protein is 5.6, albumin 3.4, globulin 2.2. Radiology per history of present illness. ASSESSMENT: 1. Stage III adenocarcinoma of the right upper lobe, on concurrent chemoradiation. 2. History of stage IV diffuse large B-cell lymphoma. 3. End-stage renal disease, on dialysis. 4. Fall. 5. Questionable new bony metastasis on MRI. 6. Pancytopenia likely secondary to CCRT. DISCUSSION: The patient is on neutropenic precautions. He has been afebrile on this hospitalization, is currently receiving dialysis. His lumbar spine does show some questionable signal abnormalities. He did have lymphoma in his cervical involving multiple cervical facets, right shoulder, L5 vertebral body, and iliac bones. He is due for repeat PET scan once his CCRT is completed for his lung cancer. I will discuss case with Dr. De Jesus and if warranted, we will get a bone scan while he is here as an inpatient. Thank you for the consult. We will follow along with him. Job ID: [id number]
--- NOTE | 2019-11-29 01:43 | CON ---
DATE OF CONSULTATION: 11/28/2019 HISTORY OF PRESENT ILLNESS: Mr. Young is a 69-year-old gentleman with history of lymphoma in remission and non small cell carcinoma of the lung, for which he is currently receiving chemotherapy and radiation. We were consulted to see Mr. Young due to MRI of the lumbar spine without contrast finding of acute L2 compression fracture. Additionally, spondylolisthesis of L5-S1 and stenosis bilaterally at L3-S1 was noted on imaging. Fracture is likely pathologic in nature. I attempted to see patient today and examine him; however, he was undergoing dialysis when I went by his room. I was able to speak with his , who reports that he fell early yesterday morning. She also reports that he is currently receiving home health physical therapy once weekly to help with improving ambulation, given that he has footdrop that causes him to trip frequently. I have discussed this case and reviewed imaging with Dr. Cole. Plan at this time is to consult [facility] to see patient for fitting of TLSO clamshell brace as well as ankle foot orthotic device to help with his footdrop should he not already have one. He will then followup outpatient in 2 weeks, at which time, we will repeat x-rays of the lumbar spine. I discussed this plan with patient's , and she stated understanding. Given that I was unable to obtain any exam from the patient today, I will see patient tomorrow to further evaluate. Job ID: [id number]
[2019-11-29] MEDS: Acetaminophen 325 MG TAB PO PRN (03:26)
[2019-11-29 07:49] LABS: #Lymphocytes 0.4 thou/uL (1.20-3.40); #Monocytes 0.2 thou/uL (0.11-0.59); #Neutrophils 0.7 thou/uL (1.40-6.50); %Eosinophils 2.9 % (0.0-10.0); %Lymphocytes 30.4 % (21.0-51.0); %Monocytes 12.9 % (0.0-10.0); %Neutrophils 53.8 % (42.0-75.0); Hemoglobin 9.9 g/dL (14.0-18.0); Mean Corpuscular HGB CONC 33.4 g/dL (32.0-36.0); Mean Corpuscular Hemoglobin 34.6 pg (27.0-31.0); Mean Platelet Volume 6.7 fL (7.4-10.4); Platelet Count 138 thou/uL (130-400); RBC Distribution Width 13.8 % (11.5-14.5); Red Blood Cell (RBC) Count 2.85 mill/uL (4.70-6.10); White Blood Cell (WBC) Count 1.3 thou/uL (4.8-10.8)
[2019-11-29 08:18] LABS: Anion Gap 13 mmol/L (10-20); BUN (Urea Nitrogen) 23 mg/dL (8.4-25.7); Calc. Creatinine Clearance 24 mL/min (70-130); Calcium 9.1 mg/dL (7.8-10.44); Carbon Dioxide 28 mmol/L (23-31); Chloride 103 mmol/L (98-107); Estimated GFR-MDRD 22; Glucose 122 mg/dL (83-110); Potassium 3.9 mmol/L (3.5-5.1); Sodium 140 mmol/L (136-145)
[2019-11-29] MEDS: Timolol 0.5% Ophth Soln 5 ml Bottle EA EYE SCH (09:29)
[2019-11-29] MEDS: HumaLOG 300 UNITS/3 ML VIAL SC PRN ×3 (11:55→21:04)
--- NOTE | 2019-11-29 13:06 | PRG ---
DATE OF SERVICE: SUBJECTIVE: Mr. Young is a 69-year-old man with end-stage renal disease on dialysis and a history of lymphoma in remission. He also has non-small cell lung adenocarcinoma, that was diagnosed in August 2019. He had a fall yesterday and sustained an L2 anterior middle column fracture. This is positive on STIR imaging involving the superior portion of L2. There is no worrisome canal compromise. He has L5 and S1 spondylolisthesis and various degrees of stenosis from L3 to S1. He has a chronic left dorsiflexor weakness. He also undergoes home health physical therapy once weekly to help with his ambulation. He states that ever since starting chemo, he has felt weaker and that has led to a decline in his ability to ambulate. OBJECTIVE: Today, on exam, he is alert and appropriate. He does have moderate dorsiflexor weakness in the left side. [facility] colleagues are here to fit him with a TLSO clamshell brace for his L2 fracture, and we will also order a left-sided ankle-foot orthosis to reduce risk of fall. We will follow up with him in 2 weeks. His TLSO brace can be worn whenever out of bed. We will arrange upright AP and lateral lumbar spine x-rays in 2 weeks x1 L2 fracture, possible pathologic with traumatic incident. Job ID: [id number]
--- NOTE | 2019-11-29 13:29 | PRG ---
DATE OF SERVICE: 11/29/2019 SUBJECTIVE: Patient was seen and examined at bedside and overnight events noted. Patient denies any shortness of breath or chest pain or palpitation. No history of nausea or vomiting or diarrhea or fever or chills or cramps. OBJECTIVE: GENERAL: This is a well-built male, in no apparent distress. VITAL SIGNS: Temperature 98.5, pulse 90, respiratory rate 18, and blood pressure 139/65. HEENT: Atraumatic, normocephalic. Oral mucosa is moist NECK: Supple. CARDIOVASCULAR: S1, S2 heard. Rate and rhythm regular. RESPIRATORY: Clear to auscultation. GASTROINTESTINAL: Abdomen is soft. MUSCULOSKELETAL: No tenderness. No edema. DERMATOLOGIC: No skin rash. NEUROLOGIC: Alert and awake and oriented X3. No focal neurologic deficits. Moving all the extremities. PSYCHIATRIC: Mood and affect normal. LABORATORY DATA: Potassium is 3.9, BUN is 23, and creatinine is 2.8. ASSESSMENT AND PLAN: 1. End-stage renal disease. Continue on dialysis as tolerated. 2. Edema. I will remove fluid. 3. History of chronic anemia. 4. History of hypertension. Continue on dialysis as tolerated, Thursday, Thursday, and Thursday. Job ID: [id number]
--- NOTE | 2019-11-29 15:11 | PDOC.HOSPP ---
- Subjective Encounter Date: 11/29/19 Encounter Time: 15:09 Subjective: Mr. Young was seen today in follow-up of syncope and fall. No complaints today. - Objective Vital Signs & Weight: Vital Signs (12 hours) Temp Pulse Resp BP BP BP Pulse Ox 11/29/19 11:42 98.5 F 91 20 139/65 100 11/29/19 08:02 94 20 123/59 L 106/55 L 128/62 99 11/29/19 03:30 97 18 141/63 H 97 Weight Admit Weight 150 lb 11.2 oz Weight 153 lb 11.2 oz I&O: 11/28/19 11/29/19 11/30/19 06:59 06:59 06:59 Intake Total 780 800 720 Output Total 450 1200 Balance 330 -400 720 Result Diagrams: 11/29/19 07:34 11/29/19 07:34 Additional Labs: Accuchecks 11/29/19 11/29/19 11/28/19 10:43 05:55 21:29 POC Glucose 213 H 122 H 242 H 11/28/19 16:52 POC Glucose 114 H Hospitalist ROS - Medication Medications: Active Medications Generic Name Dose Route Start Last Admin Trade Name Freq PRN Reason Stop Dose Admin Acetaminophen 650 mg 11/27/19 08:50 11/29/19 03:26 Tylenol PO 650 mg Q4H PRN Administration Headache/Fever/Mild Pain (1-3) Atorvastatin Calcium 40 mg 11/27/19 21:00 11/28/19 21:48 Lipitor PO 40 mg HS BLANCA Administration Carvedilol 12.5 mg 11/27/19 21:00 11/28/19 21:49 Coreg PO Not Given QPM BLANCA Finasteride 5 mg 11/28/19 21:00 11/28/19 21:48 Proscar PO 5 mg HS BLANCA Administration Insulin Human Lispro 0 units 11/27/19 08:50 11/29/19 11:55 Humalog SC 4 unit .MODERATE SLIDING SC PRN Administration Moderate Correctional Scale Insulin Human Lispro 0 units 11/27/19 08:50 11/28/19 21:50 Humalog SC 2 unit .BEDTIME SLIDING SC PRN Administration Bedtime Correctional Scale Latanoprost 1 drop 11/28/19 21:00 11/28/19 21:49 Xalatan 0.005% Ophth Soln EA EYE 1 drop HS BLANCA Administration Pantoprazole Sodium 40 mg 11/28/19 09:00 11/29/19 09:29 Protonix PO 40 mg DAILY BLANCA Administration Senna/Docusate Sodium 2 tab 11/28/19 21:00 11/28/19 21:48 Senokot S PO 2 tab HS BLANCA Administration Timolol Maleate 1 drop 11/28/19 09:00 11/29/19 09:29 Timoptic 0.5% Ophth Soln EA EYE 1 drop DAILY BLANCA Administration - Exam Heart: RRR, no murmur, no gallops, no rubs Respiratory: CTAB, no wheezes, no rales, no ronchi, normal chest expansion Gastrointestinal: soft, non-tender, non-distended, normal bowel sounds, no palpable masses, no hepatomegaly Extremities: no cyanosis Hosp A/P (1) Syncope Code(s): R55 - SYNCOPE AND COLLAPSE Status: Acute (2) Frequent falls Code(s): R29.6 - REPEATED FALLS Status: Acute (3) ESRD (end stage renal disease) Code(s): N18.6 - END STAGE RENAL DISEASE Status: Acute (4) B-cell lymphoma Code(s): C85.10 - UNSPECIFIED B-CELL LYMPHOMA, UNSPECIFIED SITE Status: Chronic (5) DM2 (diabetes mellitus, type 2) Status: Chronic (6) HTN (hypertension) Code(s): I10 - ESSENTIAL (PRIMARY) HYPERTENSION Status: Chronic - Plan * Chronic systolic heart failure- plan is for life vest prior to discharge * HTN- blood pressure is better * ESRD- continue Hemodialysis * Pancytopenia- likely due to chemotherapy- No fever, and cultures are negative - continue Neutropenic precautions while the ANC is below 1K * DM- blood glucose is stable * Home once he has the Life-vest
[2019-11-29] MEDS: Atorvastatin Calcium 40 MG TAB PO SCH (21:02)
[2019-11-29] MEDS: Carvedilol 25 MG TAB PO SCH (21:03)
[2019-11-29] MEDS: Finasteride 5 MG TAB PO SCH (21:04)
[2019-11-29] MEDS: Latanoprost 0.005% Ophth Soln 2.5 ml Bottle EA EYE SCH (21:07)
[2019-11-29] MEDS: Senokot S 8.6-50 MG TAB PO SCH (21:08)
--- NOTE | 2019-11-30 02:22 | DIS ---
DATE OF ADMISSION: 11/27/2019 DATE OF DISCHARGE: 11/29/2019 DISCHARGE DISPOSITION: Home. DISCHARGE DIAGNOSES: 1. Fall. 2. Syncope. 3. L2 lumbar fracture. 4. Chronic systolic heart failure. 5. End-stage renal disease, on hemodialysis. 6. Coronary artery disease. 7. Hypertension. 8. Diabetes mellitus, type 2. 9. Diffuse B-cell lymphoma. 10. Non-small cell carcinoma of the lung. CODE STATUS: Full code. ALLERGIES: TO PENICILLIN, CLINDAMYCIN, AND GENTAMICIN. IMAGING STUDIES: During the hospital stay, the patient had a CT scan of the brain showing no acute intracranial abnormalities. Also, had a CT scan of the pelvis showing some subcutaneous ecchymosis at the left greater trochanter. No evidence of any bone injury . The patient had bilateral carotid Dopplers, which were negative for flow-limiting disease. The patient had an MRI of the lumbar spine and this showed an acute burst fracture at L2 with some mild loss of vertebral body height. There is slight retropulsion with no central canal stenosis. There was possible osseous metastatic disease. The patient had an echocardiogram in which the ejection fraction was visualized at 20% to 25%. The left ventricle was moderately to severely increased and there was moderate mitral regurgitation present. HOSPITAL COURSE: Mr. Young is a pleasant 69-year-old gentleman, who came to the emergency room after suffering a fall at home. He says his legs basically just gave out on him and then after he fell, he syncopized. He has significant medical history including diabetes, end-stage renal disease, B-cell lymphoma, and adenocarcinoma of the lung. For this reason, an extensive workup was done. He had a carotid Doppler, which was negative. An echocardiogram revealed worsening of his heart failure and for this reason, Cardiology was consulted and he was fitted for a LifeVest prior to discharge. He also was found to have an L2 burst fracture. Neurosurgery was consulted. It was felt that this lesion did not require surgery. The other lesion was unclear whether or not this was metastatic disease and he would need followup x-rays in about 2 weeks. He was fitted for a clamshell brace. It is noted that he will be able to wear both the LifeVest and the clamshell brace together. He was also seen by his oncologist given his multiple complaints and once stabilized, was able to be discharged home. Job ID: [id number]
--- NOTE | 2019-11-30 08:54 | CON ---
DATE OF CONSULTATION: 11/29/2019 INDICATION FOR CONSULTATION: A 69-year-old gentleman who had a syncopal episode on the day before yesterday, sounds like which would have been early Thursday morning. We were asked to see him due also to worsening of cardiomyopathy. 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 Apparently, he was in remission from this. He did underwent a CT scan this year a few months ago, was found to have stage III small cell lung cancer for which he is now undergoing chemo and radiation therapy. He also has a history of end-stage renal disease, on hemodialysis. I reviewed the reports of his echocardiograms in the past in 2016, ejection fraction was 40% to 45%; in 2017, ejection fraction was 35% to 40%; in November of this year, ejection fraction was estimated at 50%, but then in February 2019, ejection fraction was back down again to 35% and 40%. Echocardiogram on this admission shows ejection fraction of 20% to 25% with dilated left atrium, left ventricle, and moderate mitral valve regurgitation. He denies chest pain or significant shortness of breath. He has undergone bypass surgery many years ago, and his coronary artery disease appears to be stable. He also was seen earlier this year by Dr. Rutledge and since that time, he has been started on hemodialysis due to end-stage renal disease with congestive heart failure type symptoms. This has improved. He has no lower extremity edema. He denies any significant shortness of breath, and apparently, he is tolerating dialysis, but then he said he does have abdominal pain and has some hypotension during the dialysis. On this admission, prior to being admitted, the patient said he woke up around 2 o'clock in the morning on Thursday and said he knows his blood pressure is extremely high, he took one of his carvedilol and some Tylenol. Before he went to bed at night or earlier that day, he had taken some Pregabalin 50 mg due to pain in his right arm and upper chest area due to his previous history of herpes zoster. Then, the patient said he needed to get up and go the restroom around 3 o'clock in the morning, he got up, and the next thing he remembers is his head is feeling dizzy or feeling tingly and then the patient had a brittni syncopal episode. The was there. She said he was only out for a couple of seconds. 911 was called. He was brought to the emergency room. I do not see indication that he was hypotensive. I do not see any evidence that he had any arrhythmias; however, with ejection fraction of 20% to 25%, it is possible he had some ventricular tachycardia or other arrhythmias. His blood pressure was not significantly decreased when the patient arrived in the emergency room. According to the records, when he arrived on the check-in, seen in the emergency room, his blood pressure was 122/63 and heart rate was in the 90s. He has not had any significant arrhythmias or pauses since being on telemetry. He did have one isolated PVC that I noted, otherwise there was no evidence of any abnormalities or pauses noted on the telemetry monitoring, and he denies any other symptoms. His original cardiac enzymes showed a troponin I of 0.01 and then increased up to 0.06 and is now back down on the very next draw to 0.018. Does not appear that he suffered any type of ischemia or myocardial infarction. He also has some history of diastolic heart failure associated with his cardiomyopathy. The main concern was that his ejection fraction has continued to decline, and this may be due to the chemotherapy that he is receiving for his small-cell lung cancer. PAST MEDICAL HISTORY: Significant for the diastolic as well as systolic heart failure. He has end-stage renal disease. He is on hemodialysis. He has coronary artery disease. He has had bypass surgery [place] [address] Foley. He has a history of lymphoma as noted above, which is B-cell lymphoma, which is now in remission. He has diabetes. He has history of hypertension and hyperlipidemia. He has a history of gout. He has a history of benign prostatic hypertrophy. I believe he may be on the finasteride for this or he is on the finasteride due to his hypertension. MEDICATIONS: Include: 1. Atorvastatin 40 mg a day. 2. Coreg 12.5 mg b.i.d. 3. Finasteride 5 mg at bedtime. 4. Ophthalmic drops. 5. Protonix 40 mg a day. 6. He is on p.r.n. medications. His medications prior to admission, include: 1. Aspirin. 2. Coreg. 3. Atorvastatin. 4. Finasteride. 5. He is also on Lasix. This Lasix has now been held at this time. FAMILY HISTORY: He did have a brother with cancer, I believe it was pancreatic. His father had thyroid issues. SOCIAL HISTORY: He lives at home. He is . He has 4 children. He smoked in the past and said he stopped several years ago. He has a [id number] history of tobacco abuse. REVIEW OF SYSTEMS: He complains occasionally of the right arm pain and right upper chest pain due to the previous history of herpes zoster. Otherwise, he had no shortness of breath or chest pain. He does complain of a sore throat also, which he believes is due to the chemotherapy. Otherwise, the 12-point review of systems is unremarkable except what is noted in the History of Present Illness. PHYSICAL EXAMINATION: GENERAL: Reveals a thin-statured male who is in no acute distress at this time. He is alert and oriented x3. VITAL SIGNS: His blood pressure is 106/55, heart rate is 94, shows a sinus rhythm on the monitor. He is afebrile. Respiratory rate is 20. HEENT: Shows the head to be normocephalic and atraumatic. Carotid pulses are present. Did not hear any bruits. CHEST: Clear to auscultation. Did not hear any rales, rhonchi, or wheezing. CARDIOVASCULAR: Reveals a regular rate and rhythm with normal S1, S2. I do not hear any significant S3 or S4. He does have a soft systolic murmur at the apex. ABDOMEN: Soft and nontender. No palpable masses. No tenderness. EXTREMITIES: Show no clubbing, cyanosis, or edema. Popliteal pulses are present. Pedal pulses are decreased. There is no edema. NEUROLOGIC: He appears to be intact. LABORATORY DATA: Show a WBC of 1.3, hemoglobin 9.9, hematocrit of 29.5, and platelet count 138,000. His potassium is 3.9, BUN 23, creatinine is 2.84, and blood sugar was 122. His EKG shows a normal sinus rhythm with evidence of left ventricular hypertrophy, but no other acute changes. IMPRESSION: 1. Syncopal episode in this 69-year-old gentleman with multiple medical problems as noted above. It does not appear that he was hypotensive that perhaps the patient did have some arrhythmias which could have been ventricular tachycardia or possible bradycardia. However, also he could have had a possible transient hypotensive episode since he did take the Lyrica prior to going to bed and also had taken his Coreg about an hour earlier prior to having the event. It is unclear, but on the monitor, he is not having any events, but since the ejection fraction is decreased, he would need to be discharged to home with a LifeVest if he is agreeable. If not, then certainly a Holter monitor would be in order. 2. Cardiomyopathy. This appears to have worsened over since February of this year and most likely is due to the chemotherapy that he is undergoing and he says he has at least 3 more treatments of chemotherapy and then another PET scan is to be scheduled, but this may be done earlier according to the patient with ejection fraction of 20% to 25%. It is possible he did have some ventricular tachycardia because of the episode of the syncope. Whether or not he can continue with the chemotherapy, will need to be discussed with the oncologist, certainly to continue may cause further worsening of the ejection fraction. 3. End-stage renal disease. He is on hemodialysis. This will be continued. 4. History of coronary artery disease. He is status post bypass surgery. I do not have any indication that he has had any problems with this. He continues to not have any chest pain, is doing relatively well. No further indication for workup will be done at this time. He certainly could undergo stress testing in the future. 5. Diffuse large B-cell lymphoma, stage IV, which appears to be in remission. This has been dealt with by the Oncology Service. 6. Small-cell lung cancer, stage III for which he is still undergoing chemo and radiation therapy and will need to be discussed with the oncologist whether or not they will continue the chemotherapy with ejection fraction of 20% to 25%. 7. L2 compression fracture which he suffered when he fell. There has been discussion about placing the patient in a clamshell which makes it certainly difficult to place an event monitor or by a LifeVest on the patient. 8. Hypercholesterolemia. He will continue his present medications. 9. Hypertension. At this time, the blood pressure has been under reasonable control and at times even this morning, blood pressure was 106/55. There has been no significant hypertension since the patient has been here, but he states at home his blood pressure does get significantly elevated. 10. Type 2 diabetes, which is dealt with by the primary care service. 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 We more than happy to continue to observe the patient with you. We will need to decide whether or not he is a candidate for the LifeVest based on his compression fractures of the L2. I did discuss this with the patient and he at this time did not seem to be too interested in the LifeVest. We will re-discuss this issue and decide whether he gets a LifeVest or whether or not the lianna actually fit over the LifeVest in case it is indicated that he must have this prior to being discharged. We will certainly discuss this case with the oncologist to see whether or not they wish to continue his chemotherapy, and he will need to undergo a repeat echocardiogram. I would suggest within the next 1 month. 11. He has been followed by Dr. Rutledge in the past, and he should follow up with Dr. Rutledge once he is discharged. Job ID: [id number]
[2019-11-30] MEDS: Timolol 0.5% Ophth Soln 5 ml Bottle EA EYE SCH (12:02)
[2019-11-30] MEDS: Acetaminophen 325 MG TAB PO PRN (12:07)
--- NOTE | 2019-11-30 12:33 | PDOC.CPN ---
- Subjective Date: 11/30/19 Time: 12:41 Interval history: The pt seen and examined. No overnight events. No cardiac complaints. - Objective Allergies/Adverse Reactions: Allergies Allergy/AdvReac Type Severity Reaction Status Date / Time Penicillins Allergy Severe DIFFICULTY Verified 10/06/19 11:11 BREATHING clindamycin Allergy Verified 10/06/19 11:11 gentamicin Allergy Verified 10/06/19 11:11 Visit Medications: Current Medications Acetaminophen (Tylenol) 650 mg PO Q4H PRN PRN Reason: Headache/Fever/Mild Pain (1-3) Last Admin: 11/30/19 12:07 Dose: 650 mg Atorvastatin Calcium (Lipitor) 40 mg PO HS [facility] Last Admin: 11/29/19 21:02 Dose: 40 mg Carvedilol (Coreg) 12.5 mg PO QPM [facility] Last Admin: 11/29/19 21:03 Dose: 12.5 mg Dextrose/Water (Dextrose 50%) 25 gm SLOW IVP PRN PRN PRN Reason: Hypoglycemia Finasteride (Proscar) 5 mg PO HS [facility] Last Admin: 11/29/19 21:04 Dose: 5 mg Glucagon (Glucagon) 1 mg IM PRN PRN PRN Reason: Hypoglycemia Hydralazine HCl (Apresoline) 10 mg SLOW IVP Q4H PRN PRN Reason: SBP > 180 and HR < 70 Dextrose/Water (D5w) 1,000 mls @ 0 mls/hr IV .Q0M PRN PRN Reason: Hypoglycemia Insulin Human Lispro (Humalog) 0 units SC .MODERATE SLIDING SC PRN PRN Reason: Moderate Correctional Scale Last Admin: 11/29/19 18:30 Dose: 4 unit Insulin Human Lispro (Humalog) 0 units SC .BEDTIME SLIDING SC PRN PRN Reason: Bedtime Correctional Scale Last Admin: 11/29/19 21:04 Dose: 3 unit Latanoprost (Xalatan 0.005% Ophth Soln) 1 drop EA EYE [facility] Last Admin: 11/29/19 21:07 Dose: 1 drop Ondansetron HCl (Zofran Odt) 4 mg PO Q6H PRN PRN Reason: Nausea/Vomiting Pantoprazole Sodium (Protonix) 40 mg PO DAILY [facility] Last Admin: 11/30/19 12:02 Dose: 40 mg Pregabalin (Lyrica) 50 mg PO DAILY PRN PRN Reason: Pain Senna/Docusate Sodium (Senokot S) 2 tab PO HS [facility] Last Admin: 11/29/19 21:08 Dose: Not Given Timolol Maleate (Timoptic 0.5% Ophth Soln) 1 drop EA EYE DAILY [facility] Last Admin: 11/30/19 12:02 Dose: 1 drop Vital Signs & Weight: Vital Signs Temp Pulse Resp BP Pulse Ox 11/30/19 12:09 98.9 F 99 12 134/68 97 11/30/19 04:00 99.4 F 91 18 112/55 L 96 Admit Weight 150 lb 11.2 oz Weight 153 lb 11.2 oz - Physical Exam General: alert & oriented x3 HEENT: mucus membranes moist Neck: supple neck Cardiac: regular rate and rhythm, S1/S2 Lungs: clear to auscultation, decreased breath sounds - Labs Result Diagrams: 11/29/19 07:34 11/29/19 07:34 Troponin/CKMB Troponin I 0.018 ng/mL (< 0.028) 11/27/19 11:24 - Telemetry Sinus rhythms and dysrhythmias: sinus rhythm - Assessment/Plan Assessment/Plan: 1. Acute on Chronic Systolic and Diastolic HF - on BBlocker and on HD; not on RADHA/ARB due to ESRD 2. Ischemic CMY with EF 20-25% - will d/c with LifeVest 3. s/p Syncopal episode - possible due to hypotensive; stable at this moment 4. CAD with hx of CABG in 2006 - stable with bblocker and statin; not on ASA due to low platelet level 5. HTN - stable 6. ESRD - 7. DM type 2 - 8. ESRD with HD - HD done today 9. B-cell lymphoma 10. L2 compression fx MAR reviewed * Dr Rutledge' pt. OK to d/c home once he has the Life-vest. The pt will f/u with Dr Rutledge's office within 2 wks.
--- NOTE | 2019-11-30 14:00 | PRG ---
DATE OF SERVICE: 11/30/2019 SUBJECTIVE: Patient was seen and examined at bedside and overnight events noted. Patient denies any shortness of breath or chest pain or palpitation. No history of nausea or vomiting or diarrhea or fever or chills or cramps. OBJECTIVE: GENERAL: This is a well-built male, in no apparent distress. VITAL SIGNS: Temperature 99.9. Heart rate 99. Respiratory rate 21. Blood pressure 134/60. HEENT: Atraumatic, normocephalic. Oral mucosa is moist NECK: Supple. CARDIOVASCULAR: S1, S2 heard. Rate and rhythm regular. RESPIRATORY: Clear to auscultation. GASTROINTESTINAL: Abdomen is soft. MUSCULOSKELETAL: No tenderness. No edema. DERMATOLOGIC: No skin rash. NEUROLOGIC: Alert and awake and oriented X3. No focal neurologic deficits. Moving all the extremities. PSYCHIATRIC: Mood and affect normal. LABORATORY DATA: No labs done today. ASSESSMENT AND PLAN: 1. End-stage renal disease, continue on dialysis as tolerated. 2. Edema, we will remove fluid. 3. Anemia. 4. History of hypertension. Plan to continue dialysis as tolerated. Job ID: [id number]
--- NOTE | 2019-11-30 14:34 | PDOC.HOSPP ---
- Subjective Encounter Date: 11/30/19 Encounter Time: 14:33 Subjective: Mr. Young was seen today in follow-up of syncope and heart failure. He had an episode of chest discomfort after dialysis, but is feeling better now. - Objective Vital Signs & Weight: Vital Signs (12 hours) Temp Pulse Resp BP Pulse Ox 11/30/19 12:09 98.9 F 99 12 134/68 97 11/30/19 04:00 99.4 F 91 18 112/55 L 96 Weight Admit Weight 150 lb 11.2 oz Weight 153 lb 11.2 oz I&O: 11/29/19 11/30/19 12/01/19 06:59 06:59 06:59 Intake Total 800 1660 Output Total 1200 Balance -400 1660 Result Diagrams: 11/29/19 07:34 11/29/19 07:34 Additional Labs: Accuchecks 11/30/19 11/30/19 11/29/19 10:45 06:02 20:08 POC Glucose 113 H 151 H 279 H 11/29/19 17:43 POC Glucose 218 H Hospitalist ROS - Medication Medications: Active Medications Generic Name Dose Route Start Last Admin Trade Name Freq PRN Reason Stop Dose Admin Acetaminophen 650 mg 11/27/19 08:50 11/30/19 12:07 Tylenol PO 650 mg Q4H PRN Administration Headache/Fever/Mild Pain (1-3) Atorvastatin Calcium 40 mg 11/27/19 21:00 11/29/19 21:02 Lipitor PO 40 mg HS [facility] Administration Carvedilol 12.5 mg 11/27/19 21:00 11/29/19 21:03 Coreg PO 12.5 mg QPM [facility] Administration Finasteride 5 mg 11/28/19 21:00 11/29/19 21:04 Proscar PO 5 mg HS [facility] Administration Insulin Human Lispro 0 units 11/27/19 08:50 11/29/19 18:30 Humalog SC 4 unit .MODERATE SLIDING SC PRN Administration Moderate Correctional Scale Insulin Human Lispro 0 units 11/27/19 08:50 11/29/19 21:04 Humalog SC 3 unit .BEDTIME SLIDING SC PRN Administration Bedtime Correctional Scale Latanoprost 1 drop 11/28/19 21:00 11/29/19 21:07 Xalatan 0.005% Ophth Soln EA EYE 1 drop HS [facility] Administration Pantoprazole Sodium 40 mg 11/28/19 09:00 11/30/19 12:02 Protonix PO 40 mg DAILY [facility] Administration Senna/Docusate Sodium 2 tab 11/28/19 21:00 11/29/19 21:08 Senokot S PO Not Given HS [facility] Timolol Maleate 1 drop 11/28/19 09:00 11/30/19 12:02 Timoptic 0.5% Ophth Josefan EA EYE 1 drop DAILY [facility] Administration - Exam Eye: PERRL Heart: RRR, no gallops, no rubs, normal peripheral pulses, murmur present, II/IV Respiratory: CTAB, no wheezes, no rales, no ronchi, normal chest expansion, no tachypnea, normal percussion Gastrointestinal: soft, non-tender, non-distended, normal bowel sounds Extremities: no cyanosis, no edema Hosp A/P (1) Syncope Code(s): R55 - SYNCOPE AND COLLAPSE Status: Acute (2) Frequent falls Code(s): R29.6 - REPEATED FALLS Status: Acute (3) ESRD (end stage renal disease) Code(s): N18.6 - END STAGE RENAL DISEASE Status: Acute (4) B-cell lymphoma Code(s): C85.10 - UNSPECIFIED B-CELL LYMPHOMA, UNSPECIFIED SITE Status: Chronic (5) DM2 (diabetes mellitus, type 2) Status: Chronic (6) HTN (hypertension) Code(s): I10 - ESSENTIAL (PRIMARY) HYPERTENSION Status: Chronic - Plan * Chronic systolic heart failure- plan is for life vest prior to discharge * HTN- blood pressure is better * ESRD- continue Hemodialysis * Pancytopenia- due to Chemotherapy- continue Neutropenic precautions * DM- blood glucose is stable * Awaiting Life Vest
[2019-11-30 15:56] VITALS: TEMP 97.4
[2019-11-30] MEDS ORDERED: Sodium Chloride 0.9% 500 ML IV SCH (16:15)
[2019-11-30] MEDS: HumaLOG 300 UNITS/3 ML VIAL SC PRN (18:30)
[2019-11-30 20:16] VITALS: BP 160/78
--- NOTE | 2019-12-01 23:24 | PQF ---
GEOVANY ALCALA TONI MD [id number] [id number] CLINICAL DOCUMENTATION CLARIFICATION FORM: POST DISCHARGE Addendum to original discharge summary date: ____ Late entry note date: __ DATE:12/01/19 ATTN: Anup Shields Please exercise your independent, professional judgment in responding to the clarification form. Clinical indicators are provided on the bottom of this form for your review Please check appropriate box(s): Bone fracture: Site: Lumbar level 2 Type of fracture: Check all that apply [ ] Traumatic fracture [ ] Pathologic fracture [ ] Osteoporosis fracture--- [ ] Disuse [ ] Drug- induced [ ] Postmenopausal [ ] Idiopathic [ ] Postsurgical malabsorption [ ] other (specify) [ ] Stress or fatigue fracture [ ] Neoplastic fracture [ ] Other diagnosis [ ] Unable to determine In addition, please specify: Present on Admission (POA): [ ] Yes [ ] No [ ] Unable to determine For continuity of documentation, please document condition throughout progress notes and discharge summary. Thank You. CLINICAL INDICATORS - SIGNS / SYMPTOMS / LABS H&P p1 11/27 Dr Crisostomo About 3:30 in the morning, he got up to go to the bathroom, she says that he made it towards the bathroom, but must turn to come back and then fell and hit the dresser. H&P p1 11/27 Dr Crisostomo he was unresponsive for a few minutes and he was brought to the ER for syncope Consult 11/28 He underwent scanning, which showed an L2 compression fx and degenerative changes on x-ray Consult 11/28 there was possible bone metastases in the l5-s2 and t1-t2 area RISK FACTORS H&P p1 11/27 69 year-old male H&P p1 11/27 recently diagnosed with Non-small cell carcinoma of lung Consult p1 11/28 Acute burst fracture of lumbar TREATMENTS: Ordered MRI Lumbar spine 11/28/19 Ordered PET scan 11/28/19 [place]OMON 11/27 Tylenol (This form is maintained as a part of the permanent medical record) 2014 [employer]. All Rights Reserved [email or web address] [not provided] MTDD
== END 2019-11-30 20:33 | disposition home or self-care (01) | DRG 551 ==
LOC: ERS 04:09 → ERHOLD 07:25 → OBSVTOIN 07:25 → 2SW 14:46
PROVIDERS: ADMIT Internal Medicine; ATTEND Internal Medicine
PROC: 5A1D70Z Performance of Urinary Filtration, Intermittent, Less than 6 Hours Per Day (ICD-10-PCS; principal; 2019-11-28)
DX: S32.021A Stable burst fracture of second lumbar vertebra, initial encounter for closed fracture (principal); N18.6 End stage renal disease; D61.810 Antineoplastic chemotherapy induced pancytopenia; I50.22 Chronic systolic (congestive) heart failure; I13.2 Hypertensive heart and chronic kidney disease with heart failure and with stage 5 chronic kidney disease, or end stage renal disease; C83.30 Diffuse large B-cell lymphoma, unspecified site; C34.11 Malignant neoplasm of upper lobe, right bronchus or lung; R55 Syncope and collapse; E11.22 Type 2 diabetes mellitus with diabetic chronic kidney disease; I25.10 Atherosclerotic heart disease of native coronary artery without angina pectoris; D63.1 Anemia in chronic kidney disease; E11.40 Type 2 diabetes mellitus with diabetic neuropathy, unspecified; I25.5 Ischemic cardiomyopathy; T45.1X5A Adverse effect of antineoplastic and immunosuppressive drugs, initial encounter; W19.XXXA Unspecified fall, initial encounter; Z88.0 Allergy status to penicillin; Y92.009 Unspecified place in unspecified non-institutional (private) residence as the place of occurrence of the external cause; Z99.2 Dependence on renal dialysis; Z95.1 Presence of aortocoronary bypass graft; Z90.49 Acquired absence of other specified parts of digestive tract; Z79.899 Other long term (current) drug therapy; Z79.4 Long term (current) use of insulin; Z79.82 Long term (current) use of aspirin; Z88.1 Allergy status to other antibiotic agents
CPT/HCPCS: 36415; 36416; 70450; 71045; 72100; 72148; 72170; 72192; 77386; 80048; 80053; 84484; 85025; 85060; 87040; 87086; 90935; 93005; 93306; 93880; G0257; J1644; L0639; L1930

== ENCOUNTER 2019-12-06 18:11 | Observation (INO) | payer MEDICARE, OTHER ==
[2019-12-06 19:21] LABS: Hemoglobin 9.9 g/dL (14.0-18.0); Mean Corpuscular HGB CONC 34.4 g/dL (32.0-36.0); Mean Corpuscular Hemoglobin 34.9 pg (27.0-31.0); Mean Platelet Volume 6.8 fL (7.4-10.4); Platelet Count 170 thou/uL (130-400); Red Blood Cell (RBC) Count 2.84 mill/uL (4.70-6.10)
[2019-12-06] MEDS ORDERED: Ondansetron PF 4 MG/2 ML Vial ONE (19:28)
[2019-12-06 19:35] LABS: Bacteria/HPF None Seen HPF (None Seen); Bilirubin Negative (Negative); Blood, Urine Negative (Negative); Clarity Clear (Clear); Glucose, Urine (Dipstick) 200 mg/dL (Negative); Leukocyte Negative Leu/uL (Negative); Nitrite Negative (Negative); Protein, Urine (Dipstick) 300 mg/dL (Neg-Trace); Squamous Epithelial 0-3 HPF (0-3); Urobilinogen Normal mg/dL (Less than 2); WBC/HPF 0-3 HPF (0-3)
[2019-12-06 19:41] LABS: Band 3 % (5-11); Eosinophils 3 % (0-10); Lymphocytes 13 % (21-51); MDiff Complete? YES; Monocytes 17 % (0-10); Neutrophil 61 % (42-75); Ovalocytes SLIGHT = 2-5 cells (100X) (0-1/hpf); Platelet Morphology Comment Appears Adequate; Polychromasia SLIGHT = 2-3 cells (100X) (0-2/hpf); Reactive Lymphocytes 2 % (0-10); Schistocytes SLIGHT = 2-5 cells (100X) (0-1/hpf)
[2019-12-06 19:44] LABS: ALT (SGPT) 22 U/L (8-55); AST (SGOT) 19 U/L (5-34); Albumin 3.9 g/dL (3.4-4.8); Alkaline Phosphatase 124 U/L (40-110); Anion Gap 15 mmol/L (10-20); BUN (Urea Nitrogen) 39 mg/dL (8.4-25.7); Bilirubin, Total 0.8 mg/dL (0.2-1.2); Calc. Creatinine Clearance 0 mL/min (70-130); Calcium 9.4 mg/dL (7.8-10.44); Carbon Dioxide 29 mmol/L (23-31); Chloride 100 mmol/L (98-107); Estimated GFR-MDRD 16; Globulin 2.6 g/dL (2.4-3.5); Glucose 223 mg/dL (83-110); Lipase 48 U/L (8-78); Protein, Total 6.5 g/dL (5.8-8.1); Sodium 140 mmol/L (136-145)
--- NOTE | 2019-12-06 20:18 | RAD ---
PORTABLE AP CHEST X-RAY: 12/06/19 HISTORY: Weakness and vomiting. Low white blood cell count. COMPARISON: 11/27/19. FINDINGS: Right subclavian Mediport catheter as well as left internal jugular vein hemodialysis catheter remain in place and unchanged in position. Postsurgical changes related to median sternotomy are again seen . The cardiac silhouette and pulmonary vasculature are within normal limits for the portable technique of the study. Remote posterolateral left sided rib fracture is again noted. There has been no interval change when compared to the prior study. IMPRESSION: Stable chest without evidence of an acute cardiopulmonary process. POS: [facility]
[2019-12-06] MEDS ORDERED: Ondansetron PF 4 MG/2 ML Vial IVP PRN (22:04)
[2019-12-06] MEDS ORDERED: Acetaminophen 325 MG TAB PO PRN (22:04)
[2019-12-06] MEDS ORDERED: Ondansetron ODT 4 MG TAB PO PRN (22:04)
[2019-12-06] MEDS ORDERED: Carvedilol 25 MG TAB PO SCH (22:15)
[2019-12-06] MEDS ORDERED: Famotidine 20 MG TAB PO PRN (22:23)
[2019-12-06] MEDS ORDERED: Acetaminophen 500 MG TAB ONE (22:56)
--- NOTE | 2019-12-06 23:11 | RAD ---
TWO VIEWS ABDOMEN: 12/06/19 HISTORY: Abdominal pain with nausea and vomiting. Low white blood cell count. FINDINGS: bus driver/monitor devices overlie the chest. There are surgical clips overlying the right upper quadran t. Dense vascular calcifications are seen in the abdominal aorta involving the iliac as well as visua lized femoral arteries. The bowel gas pattern is overall nonspecific. Degenerative changes are seen in the spine. There is partial visualization of venous catheters overlying the region of the SVC mos tly obscured. IMPRESSION: 1. Nonspecific bowel gas pattern. 2. Prominent vascular calcifications. POS: [facility]
--- NOTE | 2019-12-06 23:16 | HP ---
PRIMARY CARE PHYSICIAN: Unknown. ONCOLOGIST: Dr. De Jesus. PRECIPITATION EQUIPMENT TENDER: Dr. Eron Noland. CHIEF COMPLAINT: Abdominal pain, nausea, vomiting x1 day. HISTORY OF PRESENT ILLNESS: This is a 69-year-old male with past medical history of coronary artery disease status post remote CABG x4, chronic systolic and diastolic CHF with recent exacerbation, ischemic cardiomyopathy with LifeVest, ESRD, on hemodialysis Mondays, Wednesdays, Fridays, last dialyzed Thursday, stage IV non-Hodgkin lymphoma, reportedly in remission, newly diagnosed non-small cell lung adenocarcinoma, on daily radiation therapy with last chemotherapy 11/24/2019, who presented to [facility] ER for complaints of abdominal pain with intractable nausea and vomiting that started this afternoon prompting evaluation. The patient reports undergoing his routine hemodialysis yesterday and feeling fatigued afterwards. This morning, he underwent radiation therapy. He was scheduled for chemotherapy, but had lab work done revealing ongoing neutropenia. He reports his last meal was [employer] for lunch. In the ER, the patient was noted to have sinus tachycardia in 120s. Remainder of laboratory values was unremarkable. He was given IV Zofran , 1 L IV normal saline and empiric blood cultures were obtained. The patient was recommended admission for observation. At bedside, the patient is accompanied by his spouse, daughter, and granddaughter. He reports his nausea has improved. He has tolerated sips of water. He notes some abdominal discomfort, but denies any bloating. His last bowel movement was 3 days ago, which is not unusual for him and he is passing flatus. He notes recent fall requiring hospitalization with lumbar compression fracture, but has not fallen since that time, but he does use assistive device at home with home health care services available. Note, the patient has not taken his evening dose of medications yet. PAST MEDICAL HISTORY: Coronary artery disease status post remote CABG x4 in 2006, chronic systolic and diastolic CHF with ischemic cardiomyopathy with recent hospitalization for exacerbation, set up for LifeVest, ESRD on hemodialysis Mondays, Wednesdays, Fridays, last dialyzed Thursday, stage IV non-Hodgkin lymphoma, reportedly in remission per patient, stage III non-small cell lung cancer, undergoing radiation therapy, last 12/06/2019 and chemotherapy last 11/24/2019, and hypertension. PAST SURGICAL HISTORY: CABG, chemo port placement, tunneled dialysis catheter and left upper extremity access, cholecystectomy. SOCIAL HISTORY: The patient denies tobacco or alcohol use. Uses assistive device to ambulate. ALLERGIES: DOCUMENTED TO PENICILLIN, CLINDAMYCIN, GENTAMICIN. REVIEW OF SYSTEMS: Pertinent positives as per HPI. Remainder of review of systems negative. The patient denies any complaints of fevers, chills, dysuria, dyspnea , angina, or cough. HOME MEDICATIONS: Home medication will be reviewed as per admission medication reconciliation. FAMILY HISTORY: Notable for hypertension and diabetes in family members. PHYSICAL EXAMINATION: VITAL SIGNS: Temperature 99.3, pulse 117 to 123, sinus tachycardia, blood pressure 148/70, oxygen saturation 96% on room air, respirations 14 to 16 and unlabored. GENERAL APPEARANCE: He is an elderly, frail male who is awake, alert, oriented , and chronically ill in appearance. HEENT: Normocephalic, atraumatic. No facial asymmetry. Mucous membranes appear moist. NECK: Supple. CARDIOVASCULAR: S1, S2. Tachycardic. No harsh murmurs. No reproducible chest wall tenderness to palpation. There is right chest wall chemo port. There is left chest wall tunneled dialysis catheter noted. LUNGS: Bilateral equal air entry on anterior auscultation. Nonlabored respirations. No obvious wheezing or rales. ABDOMEN: Soft, nondistended, nontender with deep palpation. Bowel sounds noted. EXTREMITIES: No appreciable edema, cyanosis, or deformities. SKIN: Warm to touch without rash, pallor, or abrasions. LABORATORY VALUES: WBC 1.0, hemoglobin and hematocrit 9.9/28.8, platelets 170. Differential with 61 neutrophils, 3 bands. Sodium 140, potassium 4, chloride 100, bicarb 29, glucose 222, BUN and creatinine 39/3.79, GFR 16. Lactic acid 0.9. Troponin I negative x1. LFTs unremarkable. Lipase 48, T bilirubin 0.8. Urinalysis reveals negative nitrites, negative leukocyte esterase. IMAGING: One-view chest x-ray 12/06/2019 reveals stable chest without evidence of any acute cardiopulmonary process. ASSESSMENT: 1. Abdominal pain with nausea and vomiting, possibly secondary to acute gastritis. The patient will be admitted as observation status and placed on telemetry monitoring. He notes intractable episodes of nausea and vomiting earlier today, which have now improved. He has received 1 L IV fluid bolus in the setting of known congestive heart failure and end-stage renal disease, as clinically he appears to be euvolemic. We will trial on clear liquids and advance diet as tolerated. We will monitor for any ongoing nausea. We will obtain abdominal x-ray to evaluate for any bowel obstruction, noting history of lymphoma, although abdominal examination is benign. 2. Sinus tachycardia, likely physiologic from #1 and possibly from noted home Coreg use. We will continue on telemetry, monitor resting heart rates. We will resume oral Coreg. Certainly, a consideration for opportunistic infection in the setting of neutropenia, tachycardia, and recent chemotherapy and radiation therapy must be considered. 3. Neutropenia. The patient without any fevers. We will continue neutropenic isolation precautions. The patient follows with oncologist, Dr. De Jesus for history of lymphoma and history of lung cancer. Review of labs since latter October 2019 notes ongoing leukopenia and unclear if patient is receiving G-CSF medication. 4. End-stage renal disease, on hemodialysis Mondays, Wednesdays, Fridays. Consult Nephrology for routine hemodialysis. 5. Coronary artery disease with remote CABG x4 history. Resume coronary artery disease prudent medications once lists are appropriate for reconcile. 6. Chronic systolic and diastolic congestive heart failure exacerbation, not in exacerbation. The patient was recently hospitalized for exacerbation and discharged home on oral Lasix, which will be held at this time. Clinically appears euvolemic. He was recently set up with LifeVest that he has been wearing. 7. History of recent lumbar fracture. 8. History of stage IV non-Hodgkin lymphoma. Status unclear, but the patient reports he is in remission. 9. History of recently diagnosed stage III lung adenocarcinoma, non-small cell. The patient is on daily radiation therapy, last 12/06/2019 and last chemotherapy was 11/24/2019. He has a pending schedule for chemotherapy today, but was unable to tolerate due to ongoing leukopenia. Deep vein thrombosis prophylaxis, subcutaneous heparin. Code status: Full code as discussed with the patient. His family members are at bedside and his spouse is surrogate decision maker. Check a.m. labs. Disposition: Telemetry observation admission. Job ID: [id number] MTDD
[2019-12-07 00:26] VITALS: BMI 22.0
[2019-12-07 05:10] LABS: White Blood Cell (WBC) Count 0.8 thou/uL (4.8-10.8)
[2019-12-07 05:23] LABS: Anion Gap 13 mmol/L (10-20); BUN (Urea Nitrogen) 40 mg/dL (8.4-25.7); Calc. Creatinine Clearance 18 mL/min (70-130); Calcium 8.6 mg/dL (7.8-10.44); Carbon Dioxide 28 mmol/L (23-31); Chloride 103 mmol/L (98-107); Estimated GFR-MDRD 16; Glucose 177 mg/dL (83-110); Potassium 3.8 mmol/L (3.5-5.1); Sodium 140 mmol/L (136-145)
[2019-12-07 06:11] LABS: Band 12 % (5-11); Eosinophils 2 % (0-10); Hemoglobin 7.7 g/dL (14.0-18.0); Lymphocytes 12 % (21-51); MDiff Complete? YES; Mean Corpuscular Hemoglobin 34.8 pg (27.0-31.0); Mean Platelet Volume 6.5 fL (7.4-10.4); Monocytes 28 % (0-10); Neutrophil 46 % (42-75); Platelet Count 123 thou/uL (130-400); RBC Distribution Width 13.8 % (11.5-14.5); Red Blood Cell (RBC) Count 2.21 mill/uL (4.70-6.10)
[2019-12-07] MEDS: Heparin 5,000 UNITS/ML VIAL SC SCH ×2 (09:17→21:59)
[2019-12-07] MEDS: Carvedilol 25 MG TAB PO SCH ×2 (09:17→17:47)
[2019-12-07 11:37] LABS: HBSAg Index 0.43 S/CO (0-0.99); Hep B Surf Ag Non-Reactive S/CO (NonReactive)
[2019-12-07] MEDS ORDERED: Heparin 10,000 UNITS/1 ML VIAL ONE (13:17)
--- NOTE | 2019-12-07 16:29 | PRG ---
DATE OF SERVICE: 12/07/2019 SUBJECTIVE: The patient is seen and examined at the bedside during hemodialysis. The patient is on clear liquids. He should be on full liquid diet. He does not have any nausea and vomiting or abdominal pain. He is tolerating his hemodialysis without any major problems. OBJECTIVE: VITAL SIGNS: Blood pressure is 152/74, temperature is 98.2, respirations 16, pulse is 93, and O2 saturation is 96% on room air. HEENT: Head is atraumatic and normocephalic. Eyes: PERRLA. Sclerae are nonicteric. Conjunctivae pale. Oral mucosa is moist. LUNGS: Breath sounds diminished at both bases. HEART: S1, S2, somewhat irregular. No S3. No S4. ABDOMEN: Soft, nontender. Bowel sounds are present. No organomegaly. EXTREMITIES: No clubbing, cyanosis, or edema. NEUROLOGIC: He follows my commands. He moves his all 4 extremities. There are no any motor or sensory deficits. LABORATORY DATA: White count of 0.8, hemoglobin 7.7, hematocrit 22.6, platelet count is 123,000. Normal electrolytes, BUN of 40, creatinine 3.78, glucose 177, calcium 8.6. Hepatitis B surface antigen nonreactive. Blood cultures x2, no growth. Urine culture, no growth in 12 hours. IMPRESSION: 1. Nausea and vomiting, possibly related to acute gastritis, could be related to chemotherapy, although the last chemo was on November 24. The patient received IV fluids and the x-ray did not show any significant abnormalities. He is able to tolerate his full liquid diet. We will advance the diet as tolerated. 2. Sinus tachycardia, improved. 3. Neutropenia without any fever, most likely related to bone marrow suppression from chemotherapy. 4. End-stage renal disease, on hemodialysis 3 times a week. We will continue dialysis per Nephrology recommendation. 5. Chronic systolic and diastolic congestive heart failure, chronic, stable. 6. History of non-Hodgkin lymphoma, stage IV. 7. Recent diagnosis of stage III lung adenocarcinoma, non-small cell. The patient on radiation and chemotherapy. The last chemo was on November 24 and the last radiation was on December 06. We will continue his current regimen and advance the diet and send him home if he is able to tolerate his food and he is afebrile. Job ID: [id number]
[2019-12-07] MEDS ORDERED: Latanoprost 0.005% Ophth Soln 2.5 ml Bottle EA EYE SCH (21:00)
[2019-12-07] MEDS ORDERED: Carvedilol 25 MG TAB PO SCH (21:00)
[2019-12-07] MEDS ORDERED: Carvedilol 6.25 MG TAB PO SCH (21:00)
--- NOTE | 2019-12-07 22:49 | CON ---
DATE OF CONSULTATION: 12/07/2019 CONSULTING PHYSICIAN: Colin Etienne MD REASON FOR CONSULTATION: End-stage renal disease evaluation and care. REASON FOR ADMISSION: Abdominal pain, nausea, and vomiting. HISTORY OF PRESENT ILLNESS: This is a 69-year-old male with history of coronary artery disease, end-stage renal disease, CHF, came to the hospital with above complaints. The patient recently was discharged from the hospital. The patient has dialysis on Thursday, Thursday, Thursday, due for dialysis today. Nephrology consulted. PAST MEDICAL HISTORY: Positive for coronary artery disease, CHF, end-stage renal disease, lymphoma. PAST SURGICAL HISTORY: CABG, dialysis access placement, and cholecystectomy. HOME MEDICATIONS: Reviewed. ALLERGIES: PENICILLIN, CLINDAMYCIN, GENTAMICIN. SOCIAL HISTORY: No smoking, alcohol, or illicit drugs abuse. FAMILY HISTORY: No history of any kidney disease. REVIEW OF SYSTEMS: CONSTITUTIONAL: Negative for weight loss or gain, ability to conduct usual activities. SKIN: Negative for rash, itching. EYES: Negative for double vision, pain. ENT/MOUTH: Negative for nose bleeding, neck stiffness, pain, tenderness. CARDIOVASCULAR: Negative for palpitations, dyspnea on exertion, orthopnea. RESPIRATORY: Negative for shortness of breath, wheezing, cough, hemoptysis, fever or night sweats. GASTROINTESTINAL: Negative for poor appetite, abdominal pain, heartburn, nausea, vomiting, constipation, or diarrhea. GENITOURINARY: Negative for urgency, frequency, dysuria, nocturia. MUSCULOSKELETAL: Negative for pain, swelling. NEUROLOGIC/PSYCHIATRIC: Negative for anxiety, depression. ALLERGY/IMMUNOLOGIC: Negative for skin rash, bleeding tendency. PHYSICAL EXAMINATION: GENERAL: This is a well-built male, in no apparent distress. VITAL SIGNS: Temperature 97.9, pulse 97, respiratory rate , blood pressure 173/74. HEENT: Atraumatic, normocephalic. Oral mucosa moist. NECK: Supple. CV: S1, S2. Rate and rhythm regular. RESPIRATORY: Clear. GASTROINTESTINAL: Abdomen is soft. MUSCULOSKELETAL: 1+ edema. DERMATOLOGIC: No skin rash. NEUROLOGIC: Alert and awake. PSYCHIATRIC: Mood and affect normal. LABORATORY DATA: Hemoglobin is 7.7, potassium 3.8, BUN is 40, and creatinine is 3.7. ASSESSMENT AND PLAN: 1. End-stage renal disease. Plan is to have dialysis today. . 2. Hypertension. 3. Anemia. 4. Pancytopenia. 5. Plan is to have dialysis as tolerated on Thursday, Thursday, Thursday. Prognosis is guarded. Job ID: [id number]
[2019-12-08] MEDS ORDERED: Timolol 0.5% Ophth Soln 5 ml Bottle EA EYE SCH (09:00)
[2019-12-08] MEDS: Heparin 5,000 UNITS/ML VIAL SC SCH (09:27)
--- NOTE | 2019-12-08 11:09 | CON ---
DATE OF CONSULTATION: REASON FOR CONSULTATION: Neutropenia. HISTORY OF PRESENT ILLNESS: A 69-year-old male with history of diffuse large B-cell lymphoma status post chemotherapy and currently in remission and now with lung cancer on chemotherapy and radiation, presenting to the hospital with nausea, vomiting, and weakness. The patient states he was receiving dialysis on Thursday and felt a little weak afterward and on Thursday began having intractable nausea and vomiting and then presented to the ER. The patient last received chemotherapy with carboplatin and Taxol on November 24, 2019 and did not receive his last two doses due to ongoing neutropenia. He is continued on radiation. He states his daughter and great granddaughter had similar symptoms of nausea and vomiting and thinks he may have just gotten a bout. Since admission in the hospital, he has received IV hydration and antiemetics and his symptoms have resolved. He has mild chronic right hip pain, but denies any other complaints at this time. He has not had a bowel movement, though this is chronic constipation for him and typically takes laxatives at home. Chest x-ray and abdominal x-ray were unremarkable. REVIEW OF SYSTEMS: Ten-point review of systems negative except as per HPI. PAST MEDICAL HISTORY: CAD status post CABG, CHF, end-stage renal disease, lymphoma, and lung cancer. PAST SURGICAL HISTORY: CABG, MediPort placement, dialysis catheter, and cholecystectomy. SOCIAL HISTORY: No recent tobacco or alcohol use. ALLERGIES: PENICILLIN, CLINDAMYCIN, AND GENTAMICIN. CURRENT MEDICATIONS: Reviewed. FAMILY HISTORY: Hypertension and diabetes in the family. A brother with pancreatic cancer. Father with thyroid cancer. PHYSICAL EXAMINATION: VITAL SIGNS: Temperature 99.5, pulse 94, saturating 95% on room air, respirations 17, and blood pressure 137/73. GENERAL APPEARANCE: The patient is sitting up, eating breakfast, in no acute distress. HEENT: Normocephalic and atraumatic. NECK: Supple. CHEST: The patient is currently wearing a LifeVest. CARDIOVASCULAR: S1 and S2. No tachycardia noted at this time. LUNGS: Clear to auscultation. ABDOMEN: Soft, nondistended, and nontender. SKIN: Small abrasions on left upper extremity. LABORATORY DATA: White blood cells 0.8, hemoglobin 7.7, platelets 123, neutrophils 46%, and monocytes 28%. Sodium 140, potassium 3.8, BUN 40, creatinine 3.78, and calcium 8.6. IMAGING DATA: Chest x-ray and abdominal x-ray are unremarkable for any acute findings. ASSESSMENT AND PLAN: A 69-year-old male, currently on chemotherapy and radiation for lung cancer, presenting to the hospital with nausea, vomiting, weakness, and neutropenia. The patient's nausea and vomiting have resolved and currently able to tolerate p.o. intake. Received dialysis yesterday. He is neutropenic from chemotherapy and radiation. However, he is currently afebrile and has no signs or symptoms of infection at this time, so does not require antibiotics. Do not recommend Neupogen at this time as he is receiving radiation and this is therefore contraindicated. He should continue radiation and return to our clinic next week for CBC and if his ANC recovers to 1.0, then he may receive another dose of chemotherapy. The patient is okay to discharge home from oncology standpoint. Thank you for this consult. Job ID: [id number]
[2019-12-08 11:26] LABS: Hemoglobin 7.7 g/dL (14.0-18.0); Mean Corpuscular HGB CONC 34.1 g/dL (32.0-36.0); Mean Corpuscular Hemoglobin 35.1 pg (27.0-31.0); Mean Platelet Volume 6.3 fL (7.4-10.4); Platelet Count 129 thou/uL (130-400); RBC Distribution Width 13.7 % (11.5-14.5)
[2019-12-08 12:00] VITALS: BP 155/70; TEMP 99.1
[2019-12-08 12:04] LABS: Band 6 % (5-11); Eosinophils 4 % (0-10); Lymphocytes 30 % (21-51); MDiff Complete? YES; Monocytes 36 % (0-10); Neutrophil 20 % (42-75); Platelet Morphology Comment Appears Decreased; Polychromasia SLIGHT = 2-3 cells (100X) (0-2/hpf); Reactive Lymphocytes 4 % (0-10)
--- NOTE | 2019-12-08 13:01 | PRG ---
DATE OF SERVICE: 12/08/2019 SUBJECTIVE: Patient was seen and examined at bedside and overnight events noted. Patient denies any shortness of breath or chest pain or palpitation. No history of nausea or vomiting or diarrhea or fever or chills or cramps. OBJECTIVE: GENERAL: This is a well-built male, in no apparent distress. VITAL SIGNS: Temperature 99.5, pulse 94, respiratory rate 18, and blood pressure 137/73. HEENT: Atraumatic, normocephalic. Oral mucosa is moist NECK: Supple. CARDIOVASCULAR: S1, S2 heard. Rate and rhythm regular. RESPIRATORY: Clear to auscultation. GASTROINTESTINAL: Abdomen is soft. MUSCULOSKELETAL: No tenderness. No edema. DERMATOLOGIC: No skin rash. NEUROLOGIC: Alert and awake and oriented X3. No focal neurologic deficits. Moving all the extremities. PSYCHIATRIC: Mood and affect normal. LABORATORY DATA: Potassium 3.8, BUN is 40, and creatinine is 3.7. ASSESSMENT: 1. End-stage renal disease. Continue on hemodialysis Thursday, Thursday, Thursday. 2. Edema, controlled. 3. History of hypertension. 4. Anemia of chronic disease. 5. Pancytopenia. Follow with Hem-Onc. PLAN: To continue on dialysis Thursday, Thursday, Thursday as tolerated. Job ID: [id number]
--- NOTE | 2019-12-08 20:04 | DIS ---
DATE OF ADMISSION: 12/06/2019 DATE OF DISCHARGE: 12/08/2019 CONSULTANTS: 1. Dr. Elkin De Jesus, Oncology Service. 2. Dr. Falk, Nephrology Service. FINAL DIAGNOSES: 1. Nausea and vomiting, most likely secondary to acute gastroenteritis, resolved. 2. Sinus tachycardia, resolved. 3. Neutropenia without any fever. The patient was seen by Dr. De Jesus, his oncologist, who does not recommend any Neupogen at this point since he is on radiation therapy. 4. End-stage renal disease, on hemodialysis 3 times a week. 5. Chronic systolic and diastolic congestive heart failure, chronic, stable. 6. History of non-Hodgkin's lymphoma, stage IV. 7. Recent diagnosis of stage III lung adenocarcinoma, non-small cell. HOSPITAL COURSE: The patient was a 69-year-old male, who was admitted to the hospital with abdominal pain, nausea, and vomiting x1 day. He has a past medical history of coronary artery disease, status post remote CABG x4, chronic systolic and diastolic CHF with recent exacerbation, ischemic cardiomyopathy with LifeVest, ESRD on hemodialysis 3 times a week, stage IV non-Hodgkin's lymphoma, reportedly in remission, and newly diagnosed non-small cell lung cancer, on daily radiation therapy with last chemotherapy on November 24, 2019. He presented to [facility] ER for complaints of abdominal pain, intractable nausea and vomiting. He had lab work done prior to this hospitalization, which showed an ongoing neutropenia. He presented to the ER, where he had sinus tachycardia in 120s. Labs were unremarkable. He was given Zofran and fluids and got admitted to the hospital for further evaluation. In the ER, one-view chest x-ray revealed stable chest without any evidence of any acute cardiopulmonary process. He was continued on antiemetics and IV fluids. His elevator operator freight, Dr. Falk, was consulted and he supervised his hemodialysis during this hospitalization. Also, his oncologist was consulted for neutropenia since his white count went down below one, but he did not recommend any Neupogen since the patient was on active radiation therapy. His symptoms subsided, and he was able to tolerate renal diet without any problems. His white count today is 1.0. His blood pressure is 155/70, pulse is 86, temperature is 99.1, respiratory rate is 14, O2 saturation is 96% on room air. He was seen and examined before his discharge. He was discharged home with recommendation to follow up with Dr. De Jesus next week in his cancer office and have CBC done if he will receive chemotherapy when he is not neutropenic anymore and he will continue his radiation today at 2 o'clock and his other medications at the time of discharge are Coreg 12.5 mg at bedtime; eyedrops, Timoptic 0.5% ophthalmic solution 1 drop to each eye daily; and Xalatan 0.005% ophthalmic solution 1 drop to each eye at bedtime. He will continue pregabalin 50 mg p.r.n. as needed. He will continue his insulin glargine 15 units daily, furosemide 40 mg twice a day p.r.n., finasteride 5 mg at bedtime, atorvastatin 40 mg at bedtime, and aspirin 325 mg once a day. Job ID: [id number]
== END 2019-12-08 14:12 | disposition home or self-care (01) ==
LOC: ERS 18:11 → 2SW 21:00
PROVIDERS: ADMIT Hospitalist; ATTEND Hospitalist
DX: R11.2 Nausea with vomiting, unspecified (principal); R00.0 Tachycardia, unspecified; D61.810 Antineoplastic chemotherapy induced pancytopenia; T45.1X5A Adverse effect of antineoplastic and immunosuppressive drugs, initial encounter; T66.XXXA Radiation sickness, unspecified, initial encounter; I13.2 Hypertensive heart and chronic kidney disease with heart failure and with stage 5 chronic kidney disease, or end stage renal disease; N18.6 End stage renal disease; I50.42 Chronic combined systolic (congestive) and diastolic (congestive) heart failure; D63.1 Anemia in chronic kidney disease; C34.90 Malignant neoplasm of unspecified part of unspecified bronchus or lung; I25.5 Ischemic cardiomyopathy; Z85.72 Personal history of non-Hodgkin lymphomas; Z79.4 Long term (current) use of insulin; Z79.82 Long term (current) use of aspirin; Z79.899 Other long term (current) drug therapy; Z88.0 Allergy status to penicillin; Z88.1 Allergy status to other antibiotic agents; Z95.1 Presence of aortocoronary bypass graft; Z99.2 Dependence on renal dialysis
CPT/HCPCS: 71045; 74019; 80048; 80053 ×2; 82962; 83605; 83690; 84484; 85025 ×3; 87040; 87086; 87340; 93005; 96361; 96374; 97116; 97139; 99285; G0378 ×3; 36415; 36416; 81003; 81015; 90935; G0257; J1644; J2405

== ENCOUNTER 2020-01-12 09:15 | Day surgery (SDC) | payer MEDICARE, OTHER ==
[~2020-01-12 09:15] MED LIST changes: -Dexamethasone Sod Phosphate 10 MG, Ondansetron 2MG/ML MDV 10 MG in Sodium Chloride 0.9%... IVPB SCH; +Dexamethasone Sod Phosphate 20 MG in Sodium Chloride 0.9% 50 ML IVPB SCH; +Famotidine/PF 20 mg/2ml Vial SLOW IVP SCH; +PACLitaxel 310 MG in Sodium Chloride 0.9% 500 ML IVPB SCH; -PACLitaxel 90 MG in Sodium Chloride 0.9% 250 ML 250 ML IVPB SCH; +Palonosetron HCl 0.25 MG in Sodium Chloride 0.9% 50 ML IVPB SCH; +diphenhydrAMINE 50 MG in Sodium Chloride 0.9% 50 ML IVPB PRN
[2020-01-12] MEDS ORDERED: Sodium Chloride 0.9% 20 ML ONE (09:56)
[2020-01-12 10:20] VITALS: BP 132/65; TEMP 97.5
== END 2020-01-12 16:56 | disposition home or self-care (01) ==
LOC: ONC/OP 09:15
PROVIDERS: ATTEND Internal Medicine Hematology & Oncology
DX: Z51.11 Encounter for antineoplastic chemotherapy (principal); C83.39 Diffuse large B-cell lymphoma, extranodal and solid organ sites; C34.11 Malignant neoplasm of upper lobe, right bronchus or lung; B02.9 Zoster without complications; Z88.0 Allergy status to penicillin; Z88.1 Allergy status to other antibiotic agents
CPT/HCPCS: 80053; 82248; 83615; 84100; 84550; 96375; 96413; 96417; J1100; J1200; J1642; J2469; J7050; J9045; J9267; S0028

== ENCOUNTER 2020-01-13 11:03 | Day surgery (SDC) | payer MEDICARE, OTHER ==
[2020-01-13] MEDS ORDERED: PEGFILGRASTIM-JMDB 6 MG/0.6 ML SYRINGE SQ SCH (11:15)
[2020-01-13 11:25] VITALS: BP 130/73; TEMP 98.2
== END 2020-01-13 11:25 | disposition home or self-care (01) ==
LOC: ONC/OP 11:03
PROVIDERS: ATTEND Internal Medicine Hematology & Oncology
DX: C83.39 Diffuse large B-cell lymphoma, extranodal and solid organ sites (principal); C34.11 Malignant neoplasm of upper lobe, right bronchus or lung; B02.9 Zoster without complications; Z88.0 Allergy status to penicillin; Z88.1 Allergy status to other antibiotic agents
CPT/HCPCS: 96372; Q5108

== ENCOUNTER 2020-01-15 22:58 | Inpatient (IN) | payer MEDICARE, OTHER ==
[2020-01-15] MEDS ORDERED: Morphine 2 MG/ML SYRINGE ONE (23:42)
--- NOTE | 2020-01-15 23:54 | RAD ---
Exam: Chest one view HISTORY:Leg cramps. Patient is undergoing chemotherapy and dialysis Comparison: 12/06/2019 FINDINGS: Cardiac silhouette:Stable cardiac silhouette and sternotomy wires Lines and tubes: Stable right-sided Mediport catheter in left-sided HemoSplit dialysis catheter. Aorta: Atherosclerosis Pulmonary vessels: Normal Costophrenic angles: Clear LUNGS: Stable emphysematous changes, predominantly in the right upper lobe. Chronic interstitial opac ities are noted. No definite masses or consolidation. Pneumothorax: None Osseous abnormalities: Old rib fractures are noted IMPRESSION: 1. No significant interval change. No acute cardiopulmonary process. 2. Atherosclerosis. 3. Stable lung parenchymal changes and emphysema in the right hemithorax
[2020-01-16 00:01] LABS: Hemoglobin 9.8 g/dL (14.0-18.0); Mean Corpuscular HGB CONC 34.7 g/dL (32.0-36.0); Mean Corpuscular Hemoglobin 37.3 pg (27.0-31.0); RBC Distribution Width 13.3 % (11.5-14.5); Red Blood Cell (RBC) Count 2.63 mill/uL (4.70-6.10); White Blood Cell (WBC) Count 11.8 thou/uL (4.8-10.8)
[2020-01-16 00:21] LABS: Band 9 % (5-11); Eosinophils 1 % (0-10); Lymphocytes 3 % (21-51); MDiff Complete? YES; Mean Platelet Volume 7.9 fL (7.4-10.4); Monocytes 1 % (0-10); Neutrophil 86 % (42-75); Platelet Count 86 thou/uL (130-400); Platelet Morphology Comment Appears Decreased
[2020-01-16 00:44] LABS: ALT (SGPT) 16 U/L (8-55); AST (SGOT) 20 U/L (5-34); Albumin 3.6 g/dL (3.4-4.8); Alkaline Phosphatase 104 U/L (40-110); Anion Gap 15 mmol/L (10-20); BUN (Urea Nitrogen) 60 mg/dL (8.4-25.7); Bilirubin, Total 0.8 mg/dL (0.2-1.2); CK (CPK) 69 U/L (30-200); Calc. Creatinine Clearance 0 mL/min (70-130); Calcium 8.7 mg/dL (7.8-10.44); Carbon Dioxide 26 mmol/L (23-31); Chloride 104 mmol/L (98-107); Estimated GFR-MDRD 14; Globulin 2.3 g/dL (2.4-3.5); Glucose 213 mg/dL (83-110); Protein, Total 5.9 g/dL (5.8-8.1); Sodium 141 mmol/L (136-145)
[2020-01-16 02:49] LABS: INR-International Normal Ratio 1.1; PTT 30.9 SEC (22.9-36.1); Prothrombin Time 14.2 SEC (12.0-14.7)
[2020-01-16] MEDS ORDERED: Heparin 25,000 units/D5W 500 ML ONE (03:08)
[2020-01-16 04:05] LABS: Troponin I 0.663 ng/mL (< 0.028)
[2020-01-16 04:48] VITALS: BMI 23.7
[2020-01-16 06:24] LABS: Critical Call Chem Troponin I RESULT DECREASING; Troponin I 0.614 ng/mL (< 0.028)
--- NOTE | 2020-01-16 08:46 | ULT ---
LEFT LOWER EXTREMITY VENOUS DUPLEX EXAM: INDICATION: Left lower extremity pain and edema. FINDINGS: Deep veins of the left lower extremity were evaluated with ultrasound and Doppler. Color Doppler, sp ectral analysis, and compression studies performed. FINDINGS: Deep veins of the left lower extremity show normal blood flow and compression. No evidence of DVT. IMPRESSION: No evidence of left lower extremity deep vein thrombosis. POS: [facility]
[2020-01-16] MEDS ORDERED: Heparin 10,000 UNITS/ 10 ML VIAL ONE (08:54)
[2020-01-16] MEDS ORDERED: Heparin 25,000 units/D5W 500 ML IV SCH (10:45)
[2020-01-16] MEDS: Heparin 10,000 UNITS/ 10 ML VIAL SLOW IVP SCH ×2 (11:28→18:11)
[2020-01-16] MEDS: Acetaminophen 325 MG TAB PO PRN (13:50)
[2020-01-16] MEDS ORDERED: Dextrose 50% Abboject 50 ML SYRINGE SLOW IVP PRN (17:37)
[2020-01-16] MEDS ORDERED: Dextrose 5% in Water 1,000 ML IV PRN (17:37)
--- NOTE | 2020-01-16 17:39 | CON ---
DATE OF CONSULTATION: 01/16/2020 CONSULTING PHYSICIAN: REASON FOR CONSULTATION: End-stage renal disease evaluation. REASON FOR ADMISSION: Pain. HISTORY OF PRESENT ILLNESS: This is a 69-year-old male with history of end-stage renal disease, on hemodialysis, CHF, coronary artery disease, lymphoma, came to the hospital with pain. Leg pain is being treated for that. He gets dialysis Thursday, Thursday, Thursday. Nephrology consult, maintenance hemodialysis. The patient is feeling better, slightly better. No nausea or vomiting. No chest pain or palpitation reported. PAST MEDICAL HISTORY: Positive for end-stage renal disease, CHF, CAD, lymphoma, hypertension. PAST SURGICAL HISTORY: CABG, dialysis access placement, chemo port placement, and cholecystectomy. HOME MEDICATIONS: Reviewed include 1. Latanoprost. 2. Aspirin. 3. Finasteride. 4. Carvedilol. 5. Lipitor. 6. Insulin. 7. Furosemide. ALLERGIES: PENICILLIN AND CLINDAMYCIN. SOCIAL HISTORY: No smoking, alcohol, or drugs. FAMILY HISTORY: No history of kidney disease. REVIEW OF SYSTEMS: CONSTITUTIONAL: Negative for weight loss or gain, ability to conduct usual activities. SKIN: Negative for rash, itching. EYES: Negative for double vision, pain. ENT/MOUTH: Negative for nose bleeding, neck stiffness, pain, tenderness. CARDIOVASCULAR: Negative for palpitations, dyspnea on exertion, orthopnea. RESPIRATORY: Negative for shortness of breath, wheezing, cough, hemoptysis, fever or night sweats. GASTROINTESTINAL: Negative for poor appetite, abdominal pain, heartburn, nausea, vomiting, constipation, or diarrhea. GENITOURINARY: Negative for urgency, frequency, dysuria, nocturia. MUSCULOSKELETAL: Negative for pain, swelling. NEUROLOGIC/PSYCHIATRIC: Negative for anxiety, depression. ALLERGY/IMMUNOLOGIC: Negative for skin rash, bleeding tendency. PHYSICAL EXAMINATION: GENERAL: This is a well-built male, in no apparent distress. VITAL SIGNS: Temperature 97.9, pulse 104, respiratory rate 17, blood pressure 136/74. HEENT: Atraumatic, normocephalic. Oral mucosa moist. NECK: Supple. CVS: S1-S2 heard. RESPIRATORY: Clear. MUSCULOSKELETAL: 1+ edema. DERMATOLOGIC: No skin rash. NEUROLOGIC: Alert, awake, and oriented x3. PSYCHIATRIC: Normal mood and affect. LABORATORY DATA: Hemoglobin is 9.8, potassium is 4.0, BUN is 60, creatinine is 4.2. ASSESSMENT AND PLAN: 1. End-stage renal disease. Plan to have dialysis today Thursday, Thursday, Thursday. Dialysis nurse notified. 2. Edema, controlled. 3. History of hypertension. 4. Chronic anemia. PLAN: To continue dialysis Thursday, Thursday, Thursday as tolerated. We will follow. Thank you for the consult. Job ID: [id number]
--- NOTE | 2020-01-16 17:43 | CON ---
DATE OF CONSULTATION: HISTORY OF PRESENT ILLNESS: Arnol Young is a 69-year-old male, admitted with leg pain and has been followed by Dr. Rutledge for some time. He has had abnormal cardiac enzymes, and Cardiology consultation is requested. He did undergo bypass surgery in April 2007. He had CABG x4 with BRYANT to LAD and saphenous vein grafts to diagonal, obtuse marginal, and right posterior descending. In September 2011, he underwent placement of a 2.5 x 12 mm ION drug-eluting stent in the ramus. His last catheterization was in February 2016. The LAD, circumflex, and right coronary artery were all occluded. He had continued to have good result of the ramus stent. Grafts revealed patent BRYANT to LAD. The vein grafts to the diagonal, obtuse marginal, and right posterior descending were all patent. It was felt best to continue to treat him medically. He has been found to have falling ejection fractions. Most recent echocardiogram was on November 28, which revealed ejection fraction of 20% to 25%, whereas in August 2019, ejection fraction was 35% to 40%. He was sent home with a LifeVest, which on discussing with him, he does not wear consistently. He was last seen on December 13, 2019, in the office. He has history of lymphoma treated last year, and now, he has luk-bunuz-tfps carcinoma of the lung, stage III and is undergoing chemotherapy. He now presents complaining of bilateral leg pain below the knee. Also, 2 days ago, he states that he had left-sided chest discomfort, which he is unable to characterize. This lasted approximately 20 minutes. He had mild diaphoresis and shortness of breath with that. At the present time, he denies any chest discomfort. He continued to have leg pain; however, it has improved. PAST MEDICAL HISTORY: Diabetes; coronary artery disease; hypertension; hyperlipidemia; lymphoma, stage IV; mdb-bxqje-thws carcinoma of the lung, stage III, currently undergoing treatment; ischemic cardiomyopathy; end-stage renal disease , on dialysis. PAST SURGICAL HISTORY: CABG and cholecystectomy. MEDICATIONS: 1. Aspirin 325 daily. 2. Lipitor 40 mg at bedtime. 3. Carvedilol 12.5 mg q.p.m. 4. Finasteride 5 mg at bedtime. 5. Furosemide 40 b.i.d. 6. Insulin. ALLERGIES: 1. PENICILLIN. 2. CLINDAMYCIN. 3. GENTAMICIN. SOCIAL HISTORY: He does not smoke or drink. REVIEW OF SYSTEMS: A 10-point review of systems is otherwise unremarkable. PHYSICAL EXAMINATION: VITAL SIGNS: Blood pressure 136/74, pulse of 104. HEENT: PERRL. NECK: Supple. CHEST: Clear. CARDIAC: S1 and S2 are normal without any S3, S4, or murmurs. ABDOMEN: Normal bowel sounds without tenderness or organomegaly. EXTREMITIES: Revealed no clubbing, cyanosis, or edema. NEUROLOGIC: Grossly intact. SKIN: Warm and dry. LABORATORY DATA: EKG reveals sinus tachycardia with nonspecific ST and T-wave changes. Hemoglobin 9.8, hematocrit 28.3, white count 11,800, platelets 86,000. Sodium 141, potassium 4.0, chloride 104, carbon dioxide 26, BUN 60, creatinine 4.62. Troponin I up to 0.663 with the peak troponin I approximately 4 hours after admission. IMPRESSION: 1. Probable vle-UO-cqvmrvtgq myocardial infarction with 20 minutes chest pain 2 days prior to admission. However, I would have expected the peak troponin I to be the first determination. 2. Ischemic cardiomyopathy with last ejection fraction of 20% to 25%. He is noncompliant with his LifeVest at home. 3. Status post coronary artery bypass grafting x4, grafts were patent in 2016. 4. History of drug-eluting stent placement in the ramus in 2010, with continued good results in 2016. 5. End-stage renal disease, on dialysis. 6. Hypertension. 7. Hypercholesterolemia. 8. Diabetes. 9. History of lymphoma, stage IV. 10. Wqe-jtoco-ncym carcinoma of the lung, currently undergoing chemotherapy. 11. Leg pain, probably secondary to chemotherapy. PLAN: The patient will be continued to be monitored. He is encouraged to wear his LifeVest. He certainly may need ICD placement in the near future. Job ID: [id number] [facility]
--- NOTE | 2020-01-16 19:07 | HP ---
CHIEF COMPLAINT: Bilateral leg pain. HISTORY OF PRESENT ILLNESS: This is a 69-year-old male with past medical history of coronary artery disease, status post CABG; end-stage renal disease, on hemodialysis; CHF; hyperlipidemia; and stage IV lymphoma in addition to lung cancer. The patient had his last chemotherapy on Thursday and received a Neulasta shot afterwards. He presents today with bilateral lower leg cramps since yesterday and also reported some left-sided chest pain intermittently over the past 24 hours. The patient denies shortness of breath, cough, fever, chills, palpitations, or dizziness. REVIEW OF SYSTEMS: Negative except as noted in HPI. PAST MEDICAL HISTORY: End-stage renal disease, on hemodialysis; hyperlipidemia; hypertension; coronary artery disease; CHF; stage IV lymphoma; and lung cancer. FAMILY HISTORY: Unremarkable for his current presentation. SOCIAL HISTORY: The patient denies any smoking, drinking, or illicit drug use. PHYSICAL EXAMINATION: GENERAL: The patient is alert and oriented x3. He appears to be in no acute distress. NECK: Supple. CHEST: Clear to auscultation bilaterally. ABDOMEN: Soft, nontender, and nondistended with positive bowel sounds. NEUROLOGIC: Revealed no focal abnormalities. PERTINENT LABORATORY FINDINGS: WBC 11.8, hemoglobin 9.8, hematocrit 28.3, platelet level is 86. Chemistry is showing a sodium of 141, potassium 4, chloride 104, carbon dioxide 26, BUN 60, creatinine 4.2, and glucose of 213. His initial troponin was found to be elevated at 0.6, and 2 subsequent troponins remained around the same level. IMAGING: Chest x-ray revealed stable emphysematous changes, predominantly in the right upper lobe and chronic interstitial opacities were noted. Venous ultrasound of the lower extremities was unremarkable. IMPRESSION: 1. Chest pain, rule out acute coronary syndrome. The patient was admitted to telemetry unit. Serial troponins are stable around 0.6. Heparin drip was started for suspected eyl-ZU-gbijqqjbd myocardial infarction. Cardiology consult was obtained. Aspirin, atorvastatin, and metoprolol were initiated as well. 2. End-stage renal disease, on hemodialysis. Continue dialysis per Nephrology. 3. Stage IV lymphoma and history of lung malignancy. We will consult his oncologist. 4. Congestive heart failure. This appears to be stable. 5. Bilateral lower extremity pain. There is no evidence of deep venous thrombosis and no evidence of rashes or swelling in his lower extremities. This could be due to some neuropathy or muscle cramps. Continue to follow expectantly. Job ID: [id number]
[2020-01-16] MEDS: traMADol HCl 50 MG TAB PO PRN (20:26)
[2020-01-17] MEDS: Acetaminophen 325 MG TAB PO PRN ×2 (00:29→11:34)
[2020-01-17] MEDS: Heparin 10,000 UNITS/ 10 ML VIAL SLOW IVP SCH (01:18)
[2020-01-17 04:19] LABS: Anion Gap 13 mmol/L (10-20); BUN (Urea Nitrogen) 22 mg/dL (8.4-25.7); Calc. Creatinine Clearance 27 mL/min (70-130); Calcium 8.6 mg/dL (7.8-10.44); Carbon Dioxide 28 mmol/L (23-31); Chloride 103 mmol/L (98-107); Estimated GFR-MDRD 26; Glucose 176 mg/dL (83-110); Potassium 3.8 mmol/L (3.5-5.1); Sodium 140 mmol/L (136-145)
[2020-01-17 05:16] LABS: Band 14 % (5-11); Eosinophils 1 % (0-10); Hemoglobin 9.2 g/dL (14.0-18.0); Lymphocytes 16 % (21-51); MDiff Complete? YES; Macrocytosis SLIGHT = 6-15 cells (100X) (0-5/hpf); Mean Corpuscular HGB CONC 34.6 g/dL (32.0-36.0); Mean Corpuscular Hemoglobin 37.5 pg (27.0-31.0); Mean Platelet Volume 8.2 fL (7.4-10.4); Monocytes 5 % (0-10); Neutrophil 64 % (42-75); Platelet Count 60 thou/uL (130-400); Platelet Morphology Comment Appears Decreased; RBC Distribution Width 13.3 % (11.5-14.5); Red Blood Cell (RBC) Count 2.44 mill/uL (4.70-6.10); White Blood Cell (WBC) Count 6.3 thou/uL (4.8-10.8)
[2020-01-17] MEDS: HumaLOG 300 UNITS/3 ML VIAL SC PRN ×2 (11:33→17:58)
--- NOTE | 2020-01-17 18:15 | PDOC.HOSPP ---
- Subjective Encounter Date: 01/17/20 Subjective: Denies any chest pain or SOB. Lower ext pain improving. - Objective Vital Signs & Weight: Vital Signs (12 hours) Temp Pulse Resp BP BP Pulse Ox 01/17/20 15:00 97.9 F 104 H 16 155/80 H 98 01/17/20 11:25 98.4 F 100 12 157/81 H 95 01/17/20 09:04 99 01/17/20 07:36 98.2 F 98 14 121/67 98 Weight Admit Weight 151 lb 6.4 oz Weight 151 lb 6.4 oz I&O: 01/16/20 01/17/20 01/18/20 06:59 06:59 06:59 Intake Total 653.2 Output Total 275 Balance 378.2 Result Diagrams: 01/17/20 03:38 01/17/20 03:38 Additional Labs: Accuchecks 01/17/20 01/17/20 01/17/20 17:03 10:37 05:38 POC Glucose 189 H 243 H 163 H 01/16/20 20:31 POC Glucose 182 H Hospitalist ROS - Medication Medications: Active Medications Generic Name Dose Route Start Last Admin Trade Name Freq PRN Reason Stop Dose Admin Acetaminophen 650 mg 01/16/20 12:30 01/17/20 11:34 Tylenol PO 650 mg Q6H PRN Administration Headache Insulin Human Lispro 0 units 01/16/20 17:37 01/17/20 17:58 Humalog SC 2 unit .MODERATE SLIDING SC PRN Administration Moderate Correctional Scale Tramadol HCl 50 mg 01/16/20 19:22 01/16/20 20:26 Ultram PO 50 mg Q6H PRN Administration Pain - Exam General Appearance: NAD Eye: PERRL, anicteric sclera ENT: normocephalic atraumatic Neck: supple, no JVD Heart: RRR, no murmur, no gallops, no rubs, normal peripheral pulses Respiratory: CTAB, no tachypnea Gastrointestinal: soft, non-tender, non-distended, normal bowel sounds Hosp A/P (1) Ischemic cardiomyopathy Code(s): I25.5 - ISCHEMIC CARDIOMYOPATHY Status: Acute (2) NSTEMI (non-ST elevated myocardial infarction) Code(s): I21.4 - NON-ST ELEVATION (NSTEMI) MYOCARDIAL INFARCTION Status: Acute (3) Lower extremity pain Status: Acute (4) ESRD (end stage renal disease) on dialysis Code(s): N18.6 - END STAGE RENAL DISEASE; Z99.2 - DEPENDENCE ON RENAL DIALYSIS Status: Acute - Plan The patient is lower extremity pain has improved with tramadol. His pain could be related to his recent increased dose chemotherapy. NSTEMI unclear if type I versus type II. The patient is on medical management. Completed 48 hours of heparin. Cardiology on board. Ischemic cardiomyopathy with EF of 25%. Continue medical management with Lasix , carvedilol, and initiated lisinopril when his blood pressure stable. The patient has a LifeVest and is a candidate for AICD. Continue dialysis per nephrology.
[2020-01-17] MEDS: traMADol HCl 50 MG TAB PO PRN (20:32)
[2020-01-17] MEDS: Furosemide 40 MG TAB PO SCH (20:35)
[2020-01-17] MEDS ORDERED: Atorvastatin Calcium 40 MG TAB PO SCH (21:00)
[2020-01-17] MEDS ORDERED: Carvedilol 25 MG TAB PO SCH (21:00)
[2020-01-18 05:24] LABS: Anion Gap 14 mmol/L (10-20); BUN (Urea Nitrogen) 35 mg/dL (8.4-25.7); Calc. Creatinine Clearance 19 mL/min (70-130); Calcium 9.1 mg/dL (7.8-10.44); Carbon Dioxide 28 mmol/L (23-31); Chloride 102 mmol/L (98-107); Estimated GFR-MDRD 18; Glucose 114 mg/dL (83-110); Potassium 3.9 mmol/L (3.5-5.1); Sodium 140 mmol/L (136-145)
[2020-01-18 05:42] LABS: Band 20 % (5-11); Dohle Bodies SLIGHT; Eosinophils 8 % (0-10); Hemoglobin 9.2 g/dL (14.0-18.0); Lymphocytes 21 % (21-51); MDiff Complete? YES; Macrocytosis SLIGHT = 6-15 cells (100X) (0-5/hpf); Mean Corpuscular HGB CONC 34.1 g/dL (32.0-36.0); Mean Platelet Volume 8.9 fL (7.4-10.4); Monocytes 6 % (0-10); Neutrophil 45 % (42-75); Platelet Count 56 thou/uL (130-400); Platelet Morphology Comment Appears Decreased; RBC Distribution Width 13.2 % (11.5-14.5); Red Blood Cell (RBC) Count 2.47 mill/uL (4.70-6.10); Toxic Granulation SLIGHT; White Blood Cell (WBC) Count 3.5 thou/uL (4.8-10.8)
--- NOTE | 2020-01-18 07:27 | PRG ---
DATE OF SERVICE: 01/17/2020 SUBJECTIVE: Mr. Young is currently doing well. No current complaints. I discussed his recent reason for admission. His main complaint was a leg discomfort that occurred after chemotherapy. Minimal chest pain present. His troponin was mildly elevated at 0.6. He does have a history of CAD, status post bypass surgery in addition to stent placement. His overall LVEF estimated at 20% to 25% and has been noncompliant with LifeVest at home. OBJECTIVE: GENERAL: Patient is a pleasant gentleman, who is in no acute distress. The patient appears their stated age. VITAL SIGNS: Blood pressure 157/81, pulse 100, and temperature afebrile. NEUROLOGIC: The patient is alert and oriented x3 with no focal neurologic deficits. HEENT: Sclerae without icterus. Mouth has moist mucous membranes with normal pallor. NECK: No JVD. Carotid upstroke brisk. No bruits bilaterally. LUNGS: Clear to auscultation with unlabored respirations. BACK: No scoliosis or kyphosis. CARDIAC: Regular rate and rhythm with normal S1 and S2. No S3 or S4 noted. No significant rubs, murmurs, thrills, or gallops noted throughout the precordium. PMI is not displaced. There is no parasternal heave. ABDOMEN: Soft, nontender, nondistended. No peritoneal signs present. No hepatosplenomegaly. No abnormal striae. EXTREMITIES: 2+ femoral and 2+ dorsalis pedis pulses. No cyanosis, clubbing, or edema. SKIN: No gross abnormalities. PERTINENT LABORATORY DATA: Hemoglobin 9.2. Creatinine 3.46. IMPRESSION: 1. Elevated troponin. 2. Coronary artery disease. 3. Ischemic cardiomyopathy. 4. Lung cancer, status post chemo. RECOMMENDATIONS: Mr. Young's elevated troponin likely is secondary to demand ischemia. The patient states he did have minimal chest pain that was short-lived. His EKG was unremarkable. His enzymes were mildly elevated and likely related to demand ischemia in addition to renal insufficiency. At this point, we will continue with aggressive risk factor modification. Job ID: [id number]
[2020-01-18] MEDS ORDERED: Aspirin 81 mg Enteric Coated Tablet PO SCH (09:00)
--- NOTE | 2020-01-18 09:40 | PRG ---
DATE OF SERVICE: 01/17/2020 SUBJECTIVE: Patient was seen and examined at bedside and overnight events noted. Patient denies any shortness of breath or chest pain or palpitation. No history of nausea or vomiting or diarrhea or fever or chills or cramps. OBJECTIVE: GENERAL: This is a well-built male, in no apparent distress. VITAL SIGNS: Temperature 97.9. Heart rate 104. Respiratory rate 18. Blood pressure 155/80. HEENT: Atraumatic, normocephalic. Oral mucosa is moist NECK: Supple. CARDIOVASCULAR: S1, S2 heard. Rate and rhythm regular. RESPIRATORY: Clear to auscultation. GASTROINTESTINAL: Abdomen is soft. MUSCULOSKELETAL: No tenderness. No edema. DERMATOLOGIC: No skin rash. NEUROLOGIC: Alert and awake and oriented X3. No focal neurologic deficits. Moving all the extremities. PSYCHIATRIC: Mood and affect normal. LABORATORY DATA: Potassium 3.8, BUN is 22, creatinine is 2.4. ASSESSMENT AND PLAN: 1. End-stage renal disease. Continue dialysis Thursday, Thursday, Thursday. 2. Edema, controlled. 3. . 4. Chronic anemia. PLAN: Continue dialysis Thursday, Thursday, and Thursday. Job ID: [id number]
[2020-01-18] MEDS ORDERED: traMADol HCl 50 MG TAB PO PRN (10:15)
--- NOTE | 2020-01-18 11:18 | PRG ---
DATE OF SERVICE: 01/18/2020 SUBJECTIVE: Patient was seen and examined at bedside and overnight events noted. Patient denies any shortness of breath or chest pain or palpitation. No history of nausea or vomiting or diarrhea or fever or chills or cramps. OBJECTIVE: GENERAL: This is a well-built male, in no apparent distress. VITAL SIGNS: Temperature 97.9. Heart rate 97. Respiratory rate 14. Blood pressure 119/67. HEENT: Atraumatic, normocephalic. Oral mucosa is moist NECK: Supple. CARDIOVASCULAR: S1, S2 heard. Rate and rhythm regular. RESPIRATORY: Clear to auscultation. GASTROINTESTINAL: Abdomen is soft. MUSCULOSKELETAL: No tenderness. No edema. DERMATOLOGIC: No skin rash. NEUROLOGIC: Alert and awake and oriented X3. No focal neurologic deficits. Moving all the extremities. PSYCHIATRIC: Mood and affect normal. LABORATORY DATA: Potassium 3.9, BUN is 35, creatinine is 3.4. ASSESSMENT AND PLAN: 1. End-stage renal disease. Continue on hemodialysis, Thursday, Thursday, and Thursday. 2. Edema. 3. History of hypertension. 4. Chronic anemia. Continue on dialysis, Thursday, Thursday, and Thursday. Job ID: [id number]
[2020-01-18 12:00] VITALS: BP 106/51; TEMP 98
[2020-01-18] MEDS: Furosemide 40 MG TAB PO SCH (12:01)
[2020-01-18] MEDS: Acetaminophen 325 MG TAB PO PRN (12:01)
[2020-01-18] MEDS ORDERED: Heparin 10,000 UNITS/ 10 ML VIAL ONE (12:30)
--- NOTE | 2020-01-19 03:45 | DIS ---
DATE OF ADMISSION: 01/16/2020 DATE OF DISCHARGE: 01/18/2020 HISTORY OF PRESENT ILLNESS AND HOSPITAL COURSE: This is a 69-year-old male with past medical history of coronary artery disease, status post CABG, end-stage renal disease, on dialysis, CHF, hyperlipidemia, and stage IV lymphoma and lung cancer. The patient presented to the hospital with complaints of chest and bilateral lower extremity pain that has been occurring intermittently over the past 24 hours. He denies fever, chills, nausea, vomiting, cough, palpitations, or dizziness. The patient was transitioned to the telemetry unit. His troponin levels were found to be elevated at 0.6, and plateaued at that level. He was evaluated by Cardiology and his elevated troponin's were thought to be due to supply/demand mismatch given his hypertension and dialysis. Medical management was recommended. DISCHARGE DIAGNOSES: 1. Chest pain due to type 2 myocardial infarction. 2. End-stage renal disease, on dialysis. 3. Stage IV lymphoma. 4. Lung malignancy. 5. Heart failure with reduced ejection fraction, chronic in nature. 6. Bilateral lower extremity pain, likely related to recent chemotherapy. DISCHARGE MEDICATIONS: 1. Tramadol 50 mg orally q.6 hours as needed for pain. 2. Tylenol 650 mg orally q.6 hours p.r.n. pain. 3. Aspirin 81 mg orally daily. 4. Atorvastatin 40 mg orally nightly. 5. Carvedilol 12.5 mg orally q.p.m. 6. Furosemide 40 mg orally twice daily. 7. Finasteride 5 mg orally nightly. 8. Insulin glargine 15 units subcu daily. 9. Latanoprost 2.5 mL one drop to each eye at bedtime. DISCHARGE INSTRUCTIONS: The patient was instructed to follow up with his PCP in 1 week and his [employer] Scientist within 1 month. Job ID: [id number]
== END 2020-01-18 15:10 | disposition home or self-care (01) | DRG 280 ==
LOC: ERS 22:58 → 2NO 01-16 02:58
PROVIDERS: ADMIT Internal Medicine; ATTEND Internal Medicine
DX: I13.2 Hypertensive heart and chronic kidney disease with heart failure and with stage 5 chronic kidney disease, or end stage renal disease (principal); I21.A1 Myocardial infarction type 2; N18.6 End stage renal disease; C85.90 Non-Hodgkin lymphoma, unspecified, unspecified site; C34.90 Malignant neoplasm of unspecified part of unspecified bronchus or lung; I50.22 Chronic systolic (congestive) heart failure; M79.662 Pain in left lower leg; M79.661 Pain in right lower leg; E11.22 Type 2 diabetes mellitus with diabetic chronic kidney disease; I25.5 Ischemic cardiomyopathy; D63.1 Anemia in chronic kidney disease; I25.10 Atherosclerotic heart disease of native coronary artery without angina pectoris; E78.00 Pure hypercholesterolemia, unspecified; E78.5 Hyperlipidemia, unspecified; Z95.1 Presence of aortocoronary bypass graft; Z99.2 Dependence on renal dialysis; Z95.5 Presence of coronary angioplasty implant and graft; Z88.0 Allergy status to penicillin; Z88.8 Allergy status to other drugs, medicaments and biological substances
CPT/HCPCS: 36415; 36416; 71045; 80048; 80053; 82550; 82553; 83605; 83735; 84484; 85007; 85025; 85027; 85610; 85730; 93005; 96361; 96365; 96372; 96375; J1642; J1644; J2270; Q5108

== ENCOUNTER 2020-01-26 10:16 | Outpatient (CLI) | payer MEDICARE ==
--- NOTE | 2020-01-26 11:10 | RAD ---
LUMBAR SPINE SERIES 3 VIEWS: Date: 01/26/2020 HISTORY: Patient fell on [place] and has been having back pain ever since. COMPARISON: 11/27/19 exam. FINDINGS: The bones appear demineralized. Superior end plate compression changes of L2 are again demonstrated. Changes are felt to be stable as compared to the prior exam. Spondylolisthesis of L5-S1 with disc bouchra rowing is also unchanged. IMPRESSION: Essentially stable exam. Superior end plate compression changes of L2 are felt to be fairly similar t o the prior exam. There may be some very minimal increase to the cupping of the superior end plate, b ut this could just be related to technique. POS: OFF
== END 2020-01-26 10:17 | disposition home or self-care (01) ==
LOC: SCSRAD 10:16
PROVIDERS: ATTEND Family Medicine
DX: S32.029A Unspecified fracture of second lumbar vertebra, initial encounter for closed fracture (principal)
CPT/HCPCS: 72100

== ENCOUNTER 2020-02-02 09:00 | Day surgery (SDC) | payer MEDICARE, OTHER ==
[~2020-02-02 09:00] MED LIST changes: +Famotidine/PF 20 MG in Sodium Chloride 0.9% 50 ML IVPB SCH
[2020-02-02 14:09] VITALS: BP 167/82; TEMP 97.7
== END 2020-02-02 15:09 | disposition home or self-care (01) ==
LOC: ONC/OP 09:00
PROVIDERS: ATTEND Internal Medicine Hematology & Oncology
DX: Z51.11 Encounter for antineoplastic chemotherapy (principal); C83.39 Diffuse large B-cell lymphoma, extranodal and solid organ sites; C34.11 Malignant neoplasm of upper lobe, right bronchus or lung; B02.9 Zoster without complications; Z88.0 Allergy status to penicillin; Z88.1 Allergy status to other antibiotic agents
CPT/HCPCS: 80053; 82248; 83615; 84100; 84550; 96375; 96413; 96415; 96417; J1100; J1200; J2469; J7050; J9045; J9267

== ENCOUNTER 2020-02-02 17:27 | Emergency (ER) | payer MEDICARE, OTHER | END 2020-02-02 18:45 | disposition left against medical advice (07) | LOC: ERS 17:27 | DX: Z53.21 Procedure and treatment not carried out due to patient leaving prior to being seen by health care provider (principal) ==

== ENCOUNTER 2020-02-03 12:27 | Day surgery (SDC) | payer MEDICARE, OTHER ==
[2020-02-03] MEDS ORDERED: PEGFILGRASTIM-JMDB 6 MG/0.6 ML SYRINGE ONE (13:46)
[2020-02-03 16:10] VITALS: BP 108/62; TEMP 98.6
== END 2020-02-03 16:11 | disposition home or self-care (01) ==
LOC: ONC/OP 12:27
PROVIDERS: ATTEND Internal Medicine Hematology & Oncology
DX: C83.39 Diffuse large B-cell lymphoma, extranodal and solid organ sites (principal); C34.11 Malignant neoplasm of upper lobe, right bronchus or lung; B02.9 Zoster without complications; Z88.0 Allergy status to penicillin; Z88.1 Allergy status to other antibiotic agents
CPT/HCPCS: 96372; Q5108

== ENCOUNTER 2020-02-05 17:42 | Emergency (ER) | payer MEDICARE, OTHER ==
[2020-02-05 19:45] LABS: Hemoglobin 9.6 g/dL (14.0-18.0); Mean Corpuscular HGB CONC 33.9 g/dL (32.0-36.0); Mean Corpuscular Hemoglobin 36.8 pg (27.0-31.0); Mean Platelet Volume 7.5 fL (7.4-10.4); Platelet Count 133 thou/uL (130-400); RBC Distribution Width 14.3 % (11.5-14.5)
[2020-02-05 20:05] LABS: ALT (SGPT) 18 U/L (8-55); AST (SGOT) 22 U/L (5-34); Albumin 3.8 g/dL (3.4-4.8); Alkaline Phosphatase 144 U/L (40-110); BUN (Urea Nitrogen) 51 mg/dL (8.4-25.7); Bilirubin, Total 0.6 mg/dL (0.2-1.2); Calc. Creatinine Clearance 0 mL/min (70-130); Calcium 9.1 mg/dL (7.8-10.44); Carbon Dioxide 29 mmol/L (23-31); Estimated GFR-MDRD 14; Globulin 2.5 g/dL (2.4-3.5); Glucose 238 mg/dL (83-110); Protein, Total 6.3 g/dL (5.8-8.1)
[2020-02-05 20:12] LABS: Band 14 % (5-11); Dohle Bodies SLIGHT; Eosinophils 1 % (0-10); Lymphocytes 1 % (21-51); MDiff Complete? YES; Macrocytosis SLIGHT = 6-15 cells (100X) (0-5/hpf); Metamyelocyte 1 % (0-0); Monocytes 1 % (0-10); Neutrophil 82 % (42-75); Platelet Morphology Comment Appears Adequate; Polychromasia SLIGHT = 2-3 cells (100X) (0-2/hpf)
[2020-02-05 20:15] LABS: Anion Gap 16 mmol/L (10-20); Chloride 97 mmol/L (98-107); Potassium 4.5 mmol/L (3.5-5.1); Sodium 136 mmol/L (136-145)
== END 2020-02-05 21:18 | disposition home or self-care (01) ==
LOC: ERS 17:42
DX: T80.89XA Other complications following infusion, transfusion and therapeutic injection, initial encounter (principal); D72.829 Elevated white blood cell count, unspecified; L29.9 Pruritus, unspecified; E11.22 Type 2 diabetes mellitus with diabetic chronic kidney disease; E78.5 Hyperlipidemia, unspecified; N18.6 End stage renal disease; E78.00 Pure hypercholesterolemia, unspecified; I10 Essential (primary) hypertension; Z79.891 Long term (current) use of opiate analgesic; Z79.899 Other long term (current) drug therapy; Z79.82 Long term (current) use of aspirin
CPT/HCPCS: 36415; 80053; 85025; 99283

== ENCOUNTER 2020-02-08 10:22 | Inpatient (IN) | payer MEDICARE, OTHER ==
[2020-02-08] MEDS ORDERED: Piperacillin/Tazobactam 3.375 GM VIAL ONE (10:39)
[2020-02-08] MEDS ORDERED: Vancomycin 1 GM/200 ML BAG ONE (10:39)
[2020-02-08] MEDS ORDERED: Sodium Chloride 0.9% 100 ML ONE (10:39)
[2020-02-08] MEDS ORDERED: Aspirin 325 MG TAB ONE (11:13)
[2020-02-08] MEDS ORDERED: Nitroglycerin 0.4 MG TAB 1 EACH ONE (11:13)
[2020-02-08] MEDS ORDERED: Cefepime 1 GM VIAL ONE (11:13)
--- NOTE | 2020-02-08 11:25 | RAD ---
Portable frontal chest radiograph: 02/08/2020 COMPARISON: 01/15/2020 HISTORY: Fever, dialysis FINDINGS: There is a stable right Port-A-Cath and stable left dialysis catheter. Stable midline mcneil otomy wires. There is a nodular density in the lateral right lung base, likely representing a nipple shadow. There is new airspace disease in the left upper lobe and left perihilar region. IMPRESSION: Interval development of airspace disease in the left perihilar region and left upper lobe suggesting pneumonia/aspiration. Short-term follow-up imaging of the chest following treatment advised to document resolution.
[2020-02-08 11:26] LABS: Hemoglobin 7.5 g/dL (14.0-18.0); Mean Corpuscular HGB CONC 33.8 g/dL (32.0-36.0); Mean Corpuscular Hemoglobin 36.8 pg (27.0-31.0); Mean Platelet Volume 7.9 fL (7.4-10.4); Platelet Count 126 thou/uL (130-400); RBC Distribution Width 14.1 % (11.5-14.5); Red Blood Cell (RBC) Count 2.03 mill/uL (4.70-6.10); White Blood Cell (WBC) Count 13.9 thou/uL (4.8-10.8)
[2020-02-08 11:41] LABS: ALT (SGPT) 18 U/L (8-55); AST (SGOT) 24 U/L (5-34); Albumin 3.5 g/dL (3.4-4.8); Alkaline Phosphatase 125 U/L (40-110); Anion Gap 13 mmol/L (10-20); BUN (Urea Nitrogen) 16 mg/dL (8.4-25.7); Bilirubin, Total 0.8 mg/dL (0.2-1.2); Calc. Creatinine Clearance 0 mL/min (70-130); Calcium 8.4 mg/dL (7.8-10.44); Carbon Dioxide 29 mmol/L (23-31); Chloride 97 mmol/L (98-107); Estimated GFR-MDRD 30; Glucose 95 mg/dL (83-110); Potassium 3.4 mmol/L (3.5-5.1); Protein, Total 5.5 g/dL (5.8-8.1); Sodium 136 mmol/L (136-145)
[2020-02-08 11:44] LABS: Band 18 % (5-11); Lymphocytes 9 % (21-51); MDiff Complete? YES; Macrocytosis SLIGHT = 6-15 cells (100X) (0-5/hpf); Neutrophil 73 % (42-75); Platelet Morphology Comment Appears Decreased; Polychromasia SLIGHT = 2-3 cells (100X) (0-2/hpf)
[2020-02-08 13:17] LABS: CKMB 1.2 ng/mL (0-6.6)
[2020-02-08] MEDS ORDERED: Iopamidol-370 76% 500 ML 1 ML ONE (15:24)
[2020-02-08 15:26] LABS: Critical Call Chem Troponin I RESULT DECREASING; Troponin I 0.636 ng/mL (< 0.028)
--- NOTE | 2020-02-08 15:44 | CT ---
CTA THORAX WITH CONTRAST: 02/08/20 (Computed Tomographic Angiography, chest(noncoronary) with contrast material, and image postprocessin g) (PE protocol) HISTORY: 69-year-old male with fever, cough, and chest pain. Dr. Macias reported the findings by telephone to ER nurse, Thien Lindo at 3:23 p.m. on 02/08/20. TECHNIQUE: IV injection of iodinated contrast: 60 mL Isovue 370. Scan acquisition timing attempted to coincide with iodinated contrast bolus reaching maximal density in pulmonary arteries. 3D MIP reconstructions. FINDINGS: There is a large region of consolidation involving the left upper lobe centered anteriorly. There are satellite regions of patchy ground glass opacities throughout the rest of the left upper lobe. There are low density filling defects in the branches of the left upper lobe pulmonary artery, includ ing first order branches and more distal branches. These branches are surrounded by the consolidated lung. There is no evidence of thrombus in the pulmonic trunk, left and right main pulmonary arteries, left lower lobe pulmonary arteries, or right upper and lower lobe pulmonary arteries. There is a very small left pleural effusion. No right pleural effusion. No pneumothorax. Sternotomy wires. Heavy atherosclerotic calcifications and/or stents in all major coronary arteries. Multiple noncalcif ied mediastinal lymph nodes, difficult to measure individually because they blend in with each other without discrete borders. Atherosclerosis, ectasia, and tortuosity of thoracic aorta without aneurysm or dissection. Left IJ hemodialysis catheter with distal tip at SVC/right atrial junction. Trachea and major bronchi are patent and clear. IMPRESSION: 1. Large left upper lobe consolidation consistent with pneumonia. 2. Thrombus in multiple branches of the left upper lobe pulmonary artery including first order b ranches. 3. Small left pleural effusion. 4. Coronary atherosclerotic disease. 5. Mediastinal lymphadenopathy. Code CR jn[] POS: CET
[2020-02-08] MEDS ORDERED: Enoxaparin Sodium 60 MG/0.6 ML SYRINGE ONE (15:54)
[2020-02-08] MEDS ORDERED: Magnesium 2 GM/50 ML BAG (IN WATER) ONE (15:54)
[2020-02-08 17:38] LABS: Critical Call Chem Troponin I RESULT DECREASING; Troponin I 0.622 ng/mL (< 0.028)
[2020-02-08] MEDS ORDERED: Nitroglycerin 0.4 MG TAB (25 Tab Bottle) SL PRN (17:56)
[2020-02-08] MEDS ORDERED: Cefepime 2 GM in Sodium Chloride 0.9% 100 ML IVPB SCH (20:00)
--- NOTE | 2020-02-08 22:29 | PDOC.HHP ---
Hospitalist HPI - History of Present Illness Shortness of breath History of Present Illness: This is a 69-year-old male with past medical history of B-cell lymphoma, lung cancer, heart failure with EF of 25%, and CABG in addition to end-stage renal disease on hemodialysis who presented to the emergency department today with worsening shortness of breath, productive cough, and left-sided chest pain over the past 48 hours. The patient also endorses fever and chills. In the ER, patient was found to be hypoxic and imaging studies including CTA of the chest revealed Left upper lobe consolidation and pulmonary embolus. Hospitalist ROS - Medication Medications: Active Medications Generic Name Dose Route Start Last Admin Trade Name Freq PRN Reason Stop Dose Admin Cefepime HCl 2 gm/ Sodium 100 mls @ 200 mls/hr 02/08/20 20:00 02/08/20 21:14 Chloride IVPB 02/09/20 01:15 100 mls 0400,1200,2000 BLANCA Administration - Exam General Appearance: NAD ENT: normocephalic atraumatic Neck: supple, no JVD Heart: RRR, no murmur, no gallops, no rubs Respiratory: rhonchi Gastrointestinal: soft, non-tender, non-distended, normal bowel sounds Neurological: cranial nerve grossly intact, no focal deficits Hospitalist Results - Labs Result Diagrams: 02/08/20 11:09 02/08/20 11:09 Lab results: WBC 13.9 thou/uL (4.8-10.8) H 02/08/20 11:09 Hgb 7.5 g/dL (14.0-18.0) L 02/08/20 11:09 Hct 22.0 % (42.0-52.0) L 02/08/20 11:09 MCV 109.0 fL (78.0-98.0) H 02/08/20 11:09 Plt Count 126 thou/uL (130-400) L 02/08/20 11:09 Band Neuts % (Manual) 18 % (5-11) H 02/08/20 11:09 Sodium 136 mmol/L (136-145) 02/08/20 11:09 Potassium 3.4 mmol/L (3.5-5.1) L 02/08/20 11:09 Chloride 97 mmol/L (98-107) L 02/08/20 11:09 Carbon Dioxide 29 mmol/L (23-31) 02/08/20 11:09 BUN 16 mg/dL (8.4-25.7) 02/08/20 11:09 Creatinine 2.20 mg/dL (0.7-1.3) H 02/08/20 11:09 Glucose 95 mg/dL (83-110) 02/08/20 11:09 Lactic Acid 1.2 mmol/L (0.5-2.2) 02/08/20 11:09 Calcium 8.4 mg/dL (7.8-10.44) 02/08/20 11:09 Total Bilirubin 0.8 mg/dL (0.2-1.2) 02/08/20 11:09 AST 24 U/L (5-34) 02/08/20 11:09 ALT 18 U/L (8-55) 02/08/20 11:09 Alkaline Phosphatase 125 U/L (40-110) H 02/08/20 11:09 CK-MB (CK-2) 1.2 ng/mL (0-6.6) 02/08/20 11:09 Troponin I 0.622 ng/mL (< 0.028) H* 02/08/20 16:49 Serum Total Protein 5.5 g/dL (5.8-8.1) L 02/08/20 11:09 Albumin 3.5 g/dL (3.4-4.8) 02/08/20 11:09 - Radiology Interpretation CT scan - chest Status: image reviewed by wv Hospitalist H&P A/P - Problem (1) Sepsis Code(s): A41.9 - SEPSIS, UNSPECIFIED ORGANISM Status: Acute (2) Left upper lobe pneumonia Code(s): J18.9 - PNEUMONIA, UNSPECIFIED ORGANISM Status: Acute (3) Pulmonary embolism Code(s): I26.99 - OTHER PULMONARY EMBOLISM WITHOUT ACUTE COR PULMONALE Status : Acute (4) Elevated troponin Code(s): R79.89 - OTHER SPECIFIED ABNORMAL FINDINGS OF BLOOD CHEMISTRY Status : Acute (5) Acute on chronic combined systolic and diastolic congestive heart failure Code(s): I50.43 - ACUTE ON CHRONIC COMBINED SYSTOLIC AND DIASTOLIC HRT FAIL Status: Acute (6) ESRD (end stage renal disease) on dialysis Code(s): N18.6 - END STAGE RENAL DISEASE; Z99.2 - DEPENDENCE ON RENAL DIALYSIS Status: Acute (7) B-cell lymphoma Code(s): C85.10 - UNSPECIFIED B-CELL LYMPHOMA, UNSPECIFIED SITE Status: Chronic (8) CAD (coronary artery disease) Code(s): I25.10 - ATHSCL HEART DISEASE OF [place] CORONARY ARTERY W/O ANG PCTRS Status: Chronic (9) Acute respiratory failure with hypoxia Code(s): J96.01 - ACUTE RESPIRATORY FAILURE WITH HYPOXIA Status: Acute - Plan Plan: Acute respiratory failure with hypoxia due to left upper lobe healthcare associated pneumonia and new pulmonary emboli. We will start empiric antibiotics with vancomycin and cefepime and start Levaquin 1 mg/kg twice daily for anticoagulation. Elevated troponin likely due to demand ischemia and volume overload. The patient does have chronic troponin elevations. Consult nephrology for hemodialysis.
[2020-02-09 04:30] LABS: Anion Gap 10 mmol/L (10-20); BUN (Urea Nitrogen) 20 mg/dL (8.4-25.7); Calc. Creatinine Clearance 19 mL/min (70-130); Calcium 8.6 mg/dL (7.8-10.44); Carbon Dioxide 31 mmol/L (23-31); Chloride 97 mmol/L (98-107); Estimated GFR-MDRD 19; Glucose 91 mg/dL (83-110); Potassium 3.7 mmol/L (3.5-5.1); Sodium 134 mmol/L (136-145)
[2020-02-09 04:36] LABS: Band 25 % (5-11); Hemoglobin 7.7 g/dL (14.0-18.0); Lymphocytes 8 % (21-51); MDiff Complete? YES; Mean Corpuscular HGB CONC 33.9 g/dL (32.0-36.0); Mean Corpuscular Hemoglobin 36.6 pg (27.0-31.0); Mean Platelet Volume 8.2 fL (7.4-10.4); Monocytes 8 % (0-10); Neutrophil 59 % (42-75); Platelet Count 100 thou/uL (130-400); Platelet Morphology Comment Appears Decreased; Red Blood Cell (RBC) Count 2.09 mill/uL (4.70-6.10); White Blood Cell (WBC) Count 11.7 thou/uL (4.8-10.8)
[2020-02-09] MEDS ORDERED: Prevnar 13-Val Conj/PF 0.5 ML SYRINGE IM ONE (09:00)
[2020-02-09] MEDS ORDERED: Vancomycin 1.5 GRAM/300 ML BAG 1.5 GM in Premix Bag 1 BAG IVPB SCH (09:00)
[2020-02-09] MEDS ORDERED: FLU VACC TS2019-20(65YR UP)/PF 180 MCG/0.5 ML SYRINGE IM ONE (09:00)
[2020-02-09] MEDS: Vancomycin HCl 750 MG in Sodium Chloride 0.9% 250 ML 250 ML IVPB SCH (11:46)
--- NOTE | 2020-02-09 12:57 | CON ---
DATE OF CONSULTATION: REASON FOR CONSULTATION: End-stage renal disease, on maintenance hemodialysis. HISTORY OF PRESENT ILLNESS: This is a very pleasant 69-year-old gentleman, who presented to the hospital with shortness of breath. The patient has a history of B-cell lymphoma. The patient was complaining of dyspnea. The patient denies any nausea, vomiting, or chest pain. PAST MEDICAL HISTORY: Significant for B-cell lymphoma, lung cancer, AV fistula, tunneled dialysis catheter, congestive heart failure, and CABG. MEDICATIONS: Home medications list reviewed. Hospital medications list reviewed. ALLERGIES: REVIEWED. REVIEW OF SYSTEMS: Fifteen-point review of system was performed and negative except for positives noted above. HEENT: Eyes intact, no diplopia. Ears: No hearing loss or earache. Nose: No discharge or bleeding. CHEST: No cough or phlegm. ABDOMEN: No nausea or vomiting. GENITOURINARY: No hematuria. No Connor catheter. MUSCULOSKELETAL: No low back pain. No joint swelling or pain. NEUROLOGICAL: No syncope. No seizures. SKIN: No complaints of rash or itching. PSYCHIATRIC: No depression. CONSTITUTIONAL: No weight loss or loss of appetite. FAMILY HISTORY: Negative for ESRD. PHYSICAL EXAMINATION: GENERAL: The patient is awake and alert. VITAL SIGNS: Afebrile, pulse 100, breathing at 16, and blood pressure 135/82. HEENT: Head normocephalic and atraumatic. Eyes intact, no ulcers. Nose intact, no ulcers. Ears intact, no ulcers. NECK: Supple. No JVD. CHEST: Symmetrical and clear. CARDIOVASCULAR: Shows S1 and S2, no rub, no murmur. GASTROINTESTINAL: Abdomen is soft, bowel sounds positive. EXTREMITIES: Show no edema or ulcers. SKIN: Shows no rash or petechiae. MUSCULOSKELETAL: Shows no joint swelling or stiffness. GENITOURINARY: Shows no Connor or CVA tenderness. NEUROLOGIC: Motor intact. Cranial nerves intact. LABORATORY DATA: Labs show hemoglobin 7.7. ASSESSMENT AND PLAN: 1. Stage 6 chronic kidney disease. Plan dialysis tomorrow. 2. Hypertension, stable. 3. Anemia, stable. 4. Medications based on glomerular filtration rate are appropriate. Job ID: [id number]
--- NOTE | 2020-02-09 13:11 | PDOC.HOSPP ---
- Subjective Encounter Date: 02/09/20 Subjective: The patient reported feeling better. Still coughing. No fever. - Objective Vital Signs & Weight: Vital Signs (12 hours) Temp Pulse Pulse Resp BP BP Pulse Ox 02/09/20 11:41 98.9 F 98 20 135/68 96 02/09/20 09:41 97.6 F 97 20 105/51 L 02/09/20 09:40 95 02/09/20 08:01 97.9 F 100 20 154/69 H 95 02/09/20 03:02 99.7 F H 95 18 121/59 L 98 Weight Weight 137 lb 6.4 oz I&O: 02/08/20 02/09/20 02/10/20 06:59 06:59 06:59 Intake Total 300 0 Output Total 400 Balance -100 0 Result Diagrams: 02/09/20 03:51 02/09/20 03:51 Additional Labs: Accuchecks 02/09/20 02/09/20 02/08/20 11:00 05:19 20:09 POC Glucose 146 H 97 187 H Hospitalist ROS - Medication Medications: Active Medications Generic Name Dose Route Start Last Admin Trade Name Freq PRN Reason Stop Dose Admin Vancomycin HCl 750 mg/ Sodium 250 mls @ 250 mls/hr 02/09/20 11:00 02/09/20 11 :46 Chloride IVPB 250 mls 1100 BLANCA Administration - Exam General Appearance: NAD Eye: anicteric sclera ENT: normocephalic atraumatic, no oropharyngeal lesions Neck: supple, no JVD Heart: RRR, no murmur, no gallops, no rubs Respiratory: rhonchi Gastrointestinal: soft, non-tender, non-distended, normal bowel sounds Neurological: cranial nerve grossly intact, no focal deficits Psychiatric: A&O x 3 Hosp A/P (1) Sepsis Code(s): A41.9 - SEPSIS, UNSPECIFIED ORGANISM Status: Acute (2) Left upper lobe pneumonia Code(s): J18.9 - PNEUMONIA, UNSPECIFIED ORGANISM Status: Acute (3) Pulmonary embolism Code(s): I26.99 - OTHER PULMONARY EMBOLISM WITHOUT ACUTE COR PULMONALE Status : Acute (4) Elevated troponin Code(s): R79.89 - OTHER SPECIFIED ABNORMAL FINDINGS OF BLOOD CHEMISTRY Status : Acute (5) Acute on chronic combined systolic and diastolic congestive heart failure Code(s): I50.43 - ACUTE ON CHRONIC COMBINED SYSTOLIC AND DIASTOLIC HRT FAIL Status: Acute (6) ESRD (end stage renal disease) on dialysis Code(s): N18.6 - END STAGE RENAL DISEASE; Z99.2 - DEPENDENCE ON RENAL DIALYSIS Status: Acute (7) B-cell lymphoma Code(s): C85.10 - UNSPECIFIED B-CELL LYMPHOMA, UNSPECIFIED SITE Status: Chronic (8) CAD (coronary artery disease) Code(s): I25.10 - ATHSCL HEART DISEASE OF [place] CORONARY ARTERY W/O ANG PCTRS Status: Chronic (9) Acute respiratory failure with hypoxia Code(s): J96.01 - ACUTE RESPIRATORY FAILURE WITH HYPOXIA Status: Acute - Plan Continue Vancomycin and Cefepime for HCAP. Sepsis improving. Continue SC lovenox for PE. HD per nephrology. Transfuse one unit of PRBC for Hb less than 8.
[2020-02-09] MEDS: Latanoprost 0.005% Ophth Soln 2.5 ml Bottle EA EYE SCH (20:27)
[2020-02-09] MEDS: Atorvastatin Calcium 40 MG TAB PO SCH (20:28)
[2020-02-09] MEDS: Furosemide 40 MG TAB PO SCH (20:28)
[2020-02-09] MEDS: Gabapentin 300 MG CAP PO SCH (20:28)
[2020-02-09] MEDS: Carvedilol 25 MG TAB PO SCH (20:28)
[2020-02-09] MEDS: traMADol HCl 50 MG TAB PO SCH ×2 (20:29→21:54)
[2020-02-09] MEDS: Finasteride 5 MG TAB PO SCH (20:29)
[2020-02-09] MEDS: Cefepime 2 GM in Sodium Chloride 0.9% 100 ML IVPB SCH (20:32)
[2020-02-09] MEDS ORDERED: Ondansetron ODT 4 MG TAB PO PRN (22:38)
[2020-02-09] MEDS ORDERED: Ondansetron PF 4 MG/2 ML Vial IVP PRN (22:38)
[2020-02-10 04:38] LABS: Anion Gap 11 mmol/L (10-20); BUN (Urea Nitrogen) 26 mg/dL (8.4-25.7); Calc. Creatinine Clearance 16 mL/min (70-130); Calcium 8.7 mg/dL (7.8-10.44); Carbon Dioxide 28 mmol/L (23-31); Chloride 99 mmol/L (98-107); Estimated GFR-MDRD 16; Glucose 100 mg/dL (83-110); Potassium 3.8 mmol/L (3.5-5.1); Sodium 134 mmol/L (136-145)
[2020-02-10 04:43] LABS: Band 20 % (5-11); Dohle Bodies SLIGHT; Lymphocytes 6 % (21-51); MDiff Complete? YES; Mean Corpuscular HGB CONC 34.1 g/dL (32.0-36.0); Mean Corpuscular Hemoglobin 35.9 pg (27.0-31.0); Mean Platelet Volume 8.2 fL (7.4-10.4); Monocytes 2 % (0-10); Neutrophil 72 % (42-75); Platelet Count 106 thou/uL (130-400); Platelet Morphology Comment Appears Decreased; RBC Distribution Width 15.4 % (11.5-14.5); Red Blood Cell (RBC) Count 2.22 mill/uL (4.70-6.10); Toxic Granulation SLIGHT; White Blood Cell (WBC) Count 12.8 thou/uL (4.8-10.8)
[2020-02-10] MEDS: traMADol HCl 50 MG TAB PO SCH ×4 (06:07→20:48)
[2020-02-10 10:55] LABS: Vancomycin, Trough 9.4 ug/mL
--- NOTE | 2020-02-10 12:38 | PRG ---
DATE OF SERVICE: 02/10/2020 SUBJECTIVE: A 69-year-old male, being seen for end-stage renal disease. The patient denied any nausea, vomiting, or chest pain. PHYSICAL EXAMINATION: General: The patient is awake and alert. Vital Signs: Afebrile, pulse 70, breathing at 16, blood pressure 125/62. HEENT: Head normocephalic and atraumatic. Eyes intact, no ulcers. Nose intact, no ulcers. Ears intact, no ulcers. Neck: Supple. No JVD. Chest: Symmetrical and clear. Cardiovascular: Shows S1 and S2, no rub, no murmur. Gastrointestinal: Abdomen is soft, bowel sounds positive. Extremities: Show no edema or ulcers. Skin: Shows no rash or petechiae. Musculoskeletal: Shows no joint swelling or stiffness. Genitourinary: Shows no Connor or CVA tenderness. Neurologic: Motor intact. Cranial nerves intact. LABORATORY DATA: Reviewed. IMPRESSION AND PLAN: 1. Stage 6 chronic kidney disease. Continue hemodialysis. 2. Hypertension, stable. 3. Anemia, stable. 4. Medication based on GFR, appropriate. Job ID: [id number]
--- NOTE | 2020-02-10 12:50 | PDOC.HOSPP ---
- Subjective Encounter Date: 02/10/20 Subjective: Seen during HD Complained of feeling weak - Objective Vital Signs & Weight: Vital Signs (12 hours) Temp Pulse Resp BP BP Pulse Ox 02/10/20 07:30 98.7 F 94 20 100/54 L 96 02/10/20 04:14 98 F 85 17 111/57 L 97 02/10/20 03:03 99.0 F 87 18 125/62 97 Weight Weight 140 lb 3.2 oz I&O: 02/09/20 02/10/20 02/11/20 06:59 06:59 06:59 Intake Total 300 540 Output Total 400 400 Balance -100 140 Result Diagrams: 02/10/20 03:44 02/10/20 03:44 Additional Labs: Accuchecks 02/10/20 02/10/20 02/09/20 11:10 05:55 20:28 POC Glucose 104 105 147 H 02/09/20 16:10 POC Glucose 147 H Hospitalist ROS - Medication Medications: Active Medications Generic Name Dose Route Start Last Admin Trade Name Juan J PRN Reason Stop Dose Admin Atorvastatin Calcium 40 mg 02/09/20 21:00 02/09/20 20:28 Lipitor PO 40 mg HS BLANCA Administration Carvedilol 12.5 mg 02/09/20 21:00 02/09/20 20:28 Coreg PO 12.5 mg QPM BLANCA Administration Finasteride 5 mg 02/09/20 21:00 02/09/20 20:29 Proscar PO 5 mg HS BLANCA Administration Furosemide 40 mg 02/09/20 21:00 02/09/20 20:28 Lasix PO 40 mg BID BLANCA Administration Cefepime HCl 2 gm/ Sodium 100 mls @ 200 mls/hr 02/09/20 20:00 02/09/20 20:32 Chloride IVPB 100 mls 2000 BLANCA Administration Latanoprost 1 drop 02/09/20 21:00 02/09/20 20:27 Xalatan 0.005% Ophth Soln EA EYE 1 drp HS BLANCA Administration - Exam General Appearance: NAD, awake alert ENT: normocephalic atraumatic, no oropharyngeal lesions Neck: supple, no JVD Heart: RRR, no murmur, no gallops, no rubs Respiratory: normal chest expansion, no tachypnea, rhonchi Gastrointestinal: soft, non-tender, non-distended Hosp A/P (1) Sepsis Code(s): A41.9 - SEPSIS, UNSPECIFIED ORGANISM Status: Acute (2) Left upper lobe pneumonia Code(s): J18.9 - PNEUMONIA, UNSPECIFIED ORGANISM Status: Acute (3) Pulmonary embolism Code(s): I26.99 - OTHER PULMONARY EMBOLISM WITHOUT ACUTE COR PULMONALE Status : Acute (4) Elevated troponin Code(s): R79.89 - OTHER SPECIFIED ABNORMAL FINDINGS OF BLOOD CHEMISTRY Status : Acute (5) Acute on chronic combined systolic and diastolic congestive heart failure Code(s): I50.43 - ACUTE ON CHRONIC COMBINED SYSTOLIC AND DIASTOLIC HRT FAIL Status: Acute (6) ESRD (end stage renal disease) on dialysis Code(s): N18.6 - END STAGE RENAL DISEASE; Z99.2 - DEPENDENCE ON RENAL DIALYSIS Status: Acute (7) B-cell lymphoma Code(s): C85.10 - UNSPECIFIED B-CELL LYMPHOMA, UNSPECIFIED SITE Status: Chronic (8) CAD (coronary artery disease) Code(s): I25.10 - ATHSCL HEART DISEASE OF [place] CORONARY ARTERY W/O ANG PCTRS Status: Chronic (9) Acute respiratory failure with hypoxia Code(s): J96.01 - ACUTE RESPIRATORY FAILURE WITH HYPOXIA Status: Acute - Plan Continue Vancomycin and Cefepime for HCAP. Leukocytosis stabilizing around 12 but bandemia is improving. Cultures showing no growth so far. Continue SC lovenox for PE. HD per nephrology. Transfuse one unit of PRBC for Hb less than 8. PT and OT evaluation
[2020-02-10] MEDS ORDERED: Heparin 10,000 UNITS/ 10 ML VIAL ONE (13:38)
[2020-02-10] MEDS: Vancomycin HCl 1.25 GM in Sodium Chloride 0.9% 250 ML 250 ML IVPB SCH (13:45)
[2020-02-10] MEDS: Gabapentin 300 MG CAP PO SCH (13:46)
[2020-02-10] MEDS: Aspirin 325 MG TAB PO SCH (13:46)
[2020-02-10] MEDS: Loratadine 10 MG TAB PO SCH (13:46)
[2020-02-10] MEDS: Furosemide 40 MG TAB PO SCH ×2 (13:46→20:44)
[2020-02-10] MEDS: Vancomycin HCl 750 MG in Sodium Chloride 0.9% 250 ML 250 ML IVPB SCH (13:47)
[2020-02-10] MEDS: Cefepime 2 GM in Sodium Chloride 0.9% 100 ML IVPB SCH (20:40)
[2020-02-10] MEDS: Carvedilol 25 MG TAB PO SCH (20:44)
[2020-02-10] MEDS: Atorvastatin Calcium 40 MG TAB PO SCH (20:44)
[2020-02-10] MEDS: Finasteride 5 MG TAB PO SCH (20:44)
[2020-02-10] MEDS: Latanoprost 0.005% Ophth Soln 2.5 ml Bottle EA EYE SCH (20:46)
[2020-02-10] MEDS: Acetaminophen 325 MG TAB PO PRN (23:55)
[2020-02-11 04:46] LABS: Anion Gap 11 mmol/L (10-20); BUN (Urea Nitrogen) 11 mg/dL (8.4-25.7); Calc. Creatinine Clearance 23 mL/min (70-130); Calcium 8.6 mg/dL (7.8-10.44); Carbon Dioxide 29 mmol/L (23-31); Chloride 102 mmol/L (98-107); Estimated GFR-MDRD 24; Glucose 127 mg/dL (83-110); Potassium 4.2 mmol/L (3.5-5.1); Sodium 138 mmol/L (136-145)
[2020-02-11 05:04] LABS: Band 26 % (5-11); Dohle Bodies SLIGHT; Eosinophils 1 % (0-10); Hemoglobin 8.6 g/dL (14.0-18.0); Lymphocytes 7 % (21-51); MDiff Complete? YES; Mean Corpuscular Hemoglobin 35.9 pg (27.0-31.0); Mean Platelet Volume 7.9 fL (7.4-10.4); Monocytes 8 % (0-10); Neutrophil 58 % (42-75); Platelet Count 109 thou/uL (130-400); Platelet Morphology Comment Appears Decreased; Polychromasia SLIGHT = 2-3 cells (100X) (0-2/hpf); Red Blood Cell (RBC) Count 2.38 mill/uL (4.70-6.10); Toxic Granulation SLIGHT; White Blood Cell (WBC) Count 12.1 thou/uL (4.8-10.8)
[2020-02-11] MEDS: traMADol HCl 50 MG TAB PO SCH ×2 (05:49→19:21)
[2020-02-11] MEDS: Acetaminophen 325 MG TAB PO PRN ×2 (08:35→18:30)
[2020-02-11] MEDS: Furosemide 40 MG TAB PO SCH ×2 (08:35→20:29)
[2020-02-11] MEDS: Aspirin 325 MG TAB PO SCH (08:35)
[2020-02-11] MEDS: Loratadine 10 MG TAB PO SCH (08:36)
[2020-02-11] MEDS: Gabapentin 300 MG CAP PO SCH (08:37)
[2020-02-11] MEDS: Vancomycin HCl 1.25 GM in Sodium Chloride 0.9% 250 ML 250 ML IVPB SCH (13:10)
--- NOTE | 2020-02-11 15:36 | EKG ---
Test Reason : Blood Pressure : / mmHG Vent. Rate : 123 BPM Atrial Rate : 123 BPM P-R Int : 000 ms QRS Dur : 096 ms QT Int : 340 ms P-R-T Axes : 000 024 096 degrees QTc Int : 486 ms Sinus tachycardia Left ventricular hypertrophy with repolarization abnormality Abnormal ECG Confirmed by KATHY WALLS M.D. ([id number]), city editor MATTHEW SESAY ([id number]) on 02/11/2020 3:36:12 PM Referred By: Confirmed By:KATHY WALLS M.D.
--- NOTE | 2020-02-11 15:37 | EKG ---
Test Reason : Blood Pressure : / mmHG Vent. Rate : 098 BPM Atrial Rate : 098 BPM P-R Int : 148 ms QRS Dur : 110 ms QT Int : 424 ms P-R-T Axes : 043 031 071 degrees QTc Int : 541 ms Normal sinus rhythm Prolonged QT Abnormal ECG Confirmed by KATHY WALLS M.D. ([id number]), proposal editor MATTHEW SESAY ([id number]) on 02/11/2020 3:37:08 PM Referred By: Confirmed By:KATHY WALLS M.D.
--- NOTE | 2020-02-11 15:51 | PDOC.HOSPP ---
- Subjective Encounter Date: 02/11/20 Subjective: Complained of fever and not feeling well - Objective Vital Signs & Weight: Vital Signs (12 hours) Temp Pulse Pulse Pulse Resp BP BP 02/11/20 12:20 99.0 F 90 20 02/11/20 10:20 90 96 93/53 L 105/57 L 02/11/20 07:41 98.3 F 94 20 02/11/20 07:40 02/11/20 04:30 98.2 F 99 16 BP Pulse Ox Pulse Ox Pulse Ox 02/11/20 12:20 115/61 95 02/11/20 10:20 97 97 02/11/20 07:41 122/56 L 95 02/11/20 07:40 95 02/11/20 04:30 177/88 H 97 Weight Weight 140 lb 3.2 oz I&O: 02/10/20 02/11/20 02/12/20 06:59 06:59 06:59 Intake Total 540 1280 Output Total 400 400 Balance 140 880 Result Diagrams: 02/11/20 04:11 02/11/20 04:10 Additional Labs: Accuchecks 02/11/20 02/11/20 02/10/20 10:49 05:22 20:28 POC Glucose 126 H 126 H 204 H 02/10/20 15:54 POC Glucose 131 H Hospitalist ROS - Medication Medications: Active Medications Generic Name Dose Route Start Last Admin Trade Name Freq PRN Reason Stop Dose Admin Acetaminophen 650 mg 02/10/20 23:49 02/11/20 08:35 Tylenol PO 650 mg Q4H PRN Administration Headache/Fever or Pain Aspirin 325 mg 02/10/20 09:00 02/11/20 08:35 Aspirin PO 325 mg DAILY BLANCA Administration Atorvastatin Calcium 40 mg 02/09/20 21:00 02/10/20 20:44 Lipitor PO 40 mg HS BLANCA Administration Carvedilol 12.5 mg 02/09/20 21:00 02/10/20 20:44 Coreg PO 12.5 mg QPM BLANCA Administration Finasteride 5 mg 02/09/20 21:00 02/10/20 20:44 Proscar PO 5 mg HS BLANCA Administration Furosemide 40 mg 02/09/20 21:00 02/11/20 08:35 Lasix PO 40 mg BID BLANCA Administration Gabapentin 300 mg 02/11/20 09:00 02/11/20 08:37 Neurontin PO Not Given DAILY BLANCA Cefepime HCl 2 gm/ Sodium 100 mls @ 200 mls/hr 02/09/20 20:00 02/10/20 20:40 Chloride IVPB 100 mls 2000 BLANCA Administration Vancomycin HCl 1.25 gm/ Sodium 250 mls @ 166.667 mls/hr 02/10/20 11:00 13:10 Chloride IVPB 250 mls 1100 BLANCA Administration Latanoprost 1 drop 02/09/20 21:00 02/10/20 20:46 Xalatan 0.005% Ophth Soln EA EYE 1 drp HS BLANCA Administration Loratadine 10 mg 02/10/20 09:00 02/11/20 08:36 Claritin PO 10 mg DAILY BLANCA Administration Tramadol HCl 50 mg 02/10/20 18:00 02/11/20 05:49 Ultram PO Not Given Q12H BLANCA - Exam General Appearance: awake alert ENT: normocephalic atraumatic Neck: supple, no JVD Heart: RRR, no murmur, no gallops, no rubs, normal peripheral pulses Respiratory: no wheezes, normal chest expansion, no tachypnea, rhonchi Gastrointestinal: soft, non-tender, non-distended, normal bowel sounds Hosp A/P (1) Sepsis Code(s): A41.9 - SEPSIS, UNSPECIFIED ORGANISM Status: Acute (2) Left upper lobe pneumonia Code(s): J18.9 - PNEUMONIA, UNSPECIFIED ORGANISM Status: Acute (3) Pulmonary embolism Code(s): I26.99 - OTHER PULMONARY EMBOLISM WITHOUT ACUTE COR PULMONALE Status : Acute (4) Elevated troponin Code(s): R79.89 - OTHER SPECIFIED ABNORMAL FINDINGS OF BLOOD CHEMISTRY Status : Acute (5) Acute on chronic combined systolic and diastolic congestive heart failure Code(s): I50.43 - ACUTE ON CHRONIC COMBINED SYSTOLIC AND DIASTOLIC HRT FAIL Status: Acute (6) ESRD (end stage renal disease) on dialysis Code(s): N18.6 - END STAGE RENAL DISEASE; Z99.2 - DEPENDENCE ON RENAL DIALYSIS Status: Acute (7) B-cell lymphoma Code(s): C85.10 - UNSPECIFIED B-CELL LYMPHOMA, UNSPECIFIED SITE Status: Chronic (8) CAD (coronary artery disease) Code(s): I25.10 - ATHSCL HEART DISEASE OF [place] CORONARY ARTERY W/O ANG PCTRS Status: Chronic (9) Acute respiratory failure with hypoxia Code(s): J96.01 - ACUTE RESPIRATORY FAILURE WITH HYPOXIA Status: Acute - Plan Continue Vancomycin and Cefepime for HCAP. Leukocytosis stabilizing around 12 but bandemia is improving. Fever despite 3 days of ABXs Consult ID Cultures showing no growth so far. Continue SC lovenox for PE. HD per nephrology. Transfuse one unit of PRBC for Hb less than 8. PT and OT evaluation
[2020-02-11] MEDS: Cefepime 2 GM in Sodium Chloride 0.9% 100 ML IVPB SCH (20:29)
[2020-02-11] MEDS: Carvedilol 25 MG TAB PO SCH ×2 (20:29→20:31)
[2020-02-11] MEDS: Finasteride 5 MG TAB PO SCH (20:30)
[2020-02-11] MEDS: Atorvastatin Calcium 40 MG TAB PO SCH (20:30)
[2020-02-11] MEDS: Latanoprost 0.005% Ophth Soln 2.5 ml Bottle EA EYE SCH (20:31)
--- NOTE | 2020-02-11 21:20 | CON ---
DATE OF CONSULTATION: 02/11/2020 REASON FOR CONSULTATION: Evaluate lung findings in reference to lack of response to antimicrobial therapy. HISTORY OF PRESENT ILLNESS: A 69-year-old patient who has a history of large cell B lymphoma, which was diagnosed through a gastric biopsy and presumably in remission after chemotherapy supervised by Dr. De Jesus with a PET scan completed in 2018 demonstrating lack of activity. Subsequently, another PET scan showed activity in the right lung and the patient had a bronchoscopy and biopsy demonstrated invasive adenocarcinoma, this was diagnosed in August 2019. A port was inserted in the right subclavian location, and the patient has been receiving chemotherapy for this new finding. He also has a history of end-stage renal disease, on hemodialysis through a left tunneled IJ catheter. The etiology for renal disease is not clear. His chemotherapy for the lung cancer has included carboplatin and Taxol, which has been complicated by ongoing neutropenia, he also has received radiation therapy. Over the past few days before admission, the patient developed progressive worsening fever, chills, and cough sometimes with hemoptysis. CT angio demonstrated a left upper lobe consolidation and thrombus in multiple branches of the left upper lobe pulmonary artery including first order branches as well as mediastinal lymphadenopathy. The patient has been started on cefepime and vancomycin. He was supposed to have been started on anticoagulation with Lovenox, apparently according to the notes by Dr. Roa, but I do not see in the current medication list as an active medication. The patient has continued with intermittent temperature elevation up to 100.3. He is sitting by the bedside and states that he is feeling a little better, still continues to have hemoptysis intermittently. Some headaches. No visual symptoms except for chronic vision impairment left side. No sore throat, odynophagia, or dysphagia. No back pain. [id number] dyspnea. No chest pain. No abdominal pain or diarrhea. No genitourinary symptoms. He does not have much urine output. No joint symptoms. No focal neurological symptoms. PAST MEDICAL HISTORY: Coronary artery disease apparently 4-vessel bypass, cholecystectomy, end-stage renal disease of unclear etiology with dialysis with tunneled catheter in the left IJ position, large cell B lymphoma diagnosed via gastroscopy in remission presumably after chemotherapy in 2017 and 2018, second primary in the lung and invasive adenocarcinoma on chemotherapy with carboplatin and Taxol. Port placement, hemodialysis through IJ tunneled catheter. ALLERGIES: CLINDAMYCIN WITH DIFFICULTY BREATHING, GENTAMICIN WITH DIFFICULTY BREATHING, AND PENICILLIN WITH DIFFICULTY BREATHING. FAMILY HISTORY: Not available. SOCIAL HISTORY: Former smoker. 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 Lives in [place] with family. CURRENT MEDICATIONS: 1. Aspirin. 2. Lipitor. 3. Coreg. 4. Cefepime. 5. Proscar. 6. Lasix. 7. Neurontin. 8. Latanoprost. 9. Claritin. 10. Zofran. 11. Tramadol. 12. Vancomycin. PHYSICAL EXAMINATION: VITAL SIGNS: T-max 100.3, now 98.3, blood pressure 134/63, pulse 94, respirations 17, and O2 saturation 95%. SKIN: Shows the right-sided subclavian port via left-sided tunneled hemodialysis catheter. He does not have a Connor catheter. No areas of skin breakdown. No lymphadenopathy. HEENT: Alopecia, probably from chemotherapy. Oral cavity with no [place] teeth. NECK: Supple. No jugular vein distention. LUNGS: With inspiratory crackles in the left side. HEART: S1 and S2, regular rate. ABDOMEN: Without distention or tenderness. No organomegaly or ascites. No bladder distention. MUSCULOSKELETAL: No joint inflammatory activity. EXTREMITIES: Moves extremities equally. 1+ edema in lower extremities. Pulses 1+ in dorsalis pedis. Plantar responses are flexor. No clonus. NEUROLOGIC: Awake, alert, and oriented. Follows commands. LABORATORY DATA: White cell count 13.9, now is 12.1, hemoglobin 8.6, MCV 106, platelets 109,000 with 26% bands. The creatinine is 2.64. Liver profile with normal alkaline phosphatase 125 with albumin 3.5. Two sets of blood culture, no growth at 48 hours. ASSESSMENT: 1. Large cell B lymphoma, in remission after chemotherapy and now second primary with invasive adenocarcinoma histology, right lung on chemotherapy with carboplatin and Taxol. 2. Worsening dyspnea with infiltrative changes in the left upper lobe with multiple areas of pulmonary embolism in the left upper lobe pulmonary artery including the first order branches. DISCUSSION: The most likely reason for the recurrence of low-grade fever and persistence of cough with hemoptysis is the fact the patient does not appear to be receiving treatment for his pulmonary embolism. I spoke with the pharmacist and he has not been on any anticoagulants for the past 2 or 3 days despite of the notes stating that he was receiving the treatment. I believe that the radiological changes noted are most likely due to the thromboembolic phenomena rather than infection and I would advise starting anticoagulation. A superimposed infectious process is less likely but not ruled out and I would continue antimicrobial therapy for now. Job ID: [id number] [email or web address]
--- NOTE | 2020-02-12 00:40 | PRG ---
DATE OF SERVICE: 02/11/2020 SUBJECTIVE: A 69-year-old gentleman, being seen for end-stage renal disease. The patient denied nausea, vomiting, or chest pain. PHYSICAL EXAMINATION: GENERAL: The patient is awake and alert. VITAL SIGNS: Afebrile, pulse rate 98, breathing at 16, and blood pressure . HEENT: Head normocephalic and atraumatic. Eyes intact, no ulcers. Nose intact, no ulcers. Ears intact, no ulcers. NECK: Supple. No JVD. CHEST: Symmetrical and clear. CARDIOVASCULAR: Shows S1 and S2, no rub, no murmur. GASTROINTESTINAL: Abdomen is soft, bowel sounds positive. EXTREMITIES: Show no edema or ulcers. SKIN: Shows no rash or petechiae. MUSCULOSKELETAL: Shows no joint swelling or stiffness. GENITOURINARY: Shows no Connor or CVA tenderness. NEUROLOGIC: Motor intact. Cranial nerves intact. LABORATORY DATA: Admission labs, reviewed. ASSESSMENT AND PLAN: 1. chronic kidney disease. Plan hemodialysis per schedule. 2. Hypertension, stable. 3. Anemia, stable. 4. Medication based on GFR appropriate. Job ID: [id number]
[2020-02-12] MEDS: Acetaminophen 325 MG TAB PO PRN ×2 (03:41→13:25)
[2020-02-12 04:35] LABS: Anion Gap 13 mmol/L (10-20); BUN (Urea Nitrogen) 16 mg/dL (8.4-25.7); Calc. Creatinine Clearance 17 mL/min (70-130); Calcium 8.9 mg/dL (7.8-10.44); Carbon Dioxide 26 mmol/L (23-31); Chloride 104 mmol/L (98-107); Estimated GFR-MDRD 16; Glucose 107 mg/dL (83-110); Potassium 4.1 mmol/L (3.5-5.1); Sodium 139 mmol/L (136-145)
[2020-02-12 05:45] LABS: Band 26 % (5-11); Dohle Bodies SLIGHT; Lymphocytes 7 % (21-51); MDiff Complete? YES; Macrocytosis SLIGHT = 6-15 cells (100X) (0-5/hpf); Mean Corpuscular HGB CONC 32.8 g/dL (32.0-36.0); Mean Corpuscular Hemoglobin 34.7 pg (27.0-31.0); Mean Platelet Volume 8.2 fL (7.4-10.4); Monocytes 8 % (0-10); Myelocyte 1 % (0-0); Neutrophil 58 % (42-75); Platelet Count 141 thou/uL (130-400); Platelet Morphology Comment Appears Adequate; Polychromasia SLIGHT = 2-3 cells (100X) (0-2/hpf); RBC Distribution Width 14.8 % (11.5-14.5); Red Blood Cell (RBC) Count 2.59 mill/uL (4.70-6.10); Toxic Granulation SLIGHT; White Blood Cell (WBC) Count 19.7 thou/uL (4.8-10.8)
[2020-02-12] MEDS: traMADol HCl 50 MG TAB PO SCH ×3 (06:31→21:23)
[2020-02-12] MEDS: Furosemide 40 MG TAB PO SCH ×2 (09:32→21:23)
[2020-02-12] MEDS: Loratadine 10 MG TAB PO SCH (09:32)
[2020-02-12] MEDS: Gabapentin 300 MG CAP PO SCH (09:32)
[2020-02-12] MEDS: Aspirin 325 MG TAB PO SCH (09:32)
[2020-02-12] MEDS ORDERED: Apixaban 5 MG TAB PO SCH ×3 (11:20→21:00)
[2020-02-12] MEDS ORDERED: Heparin 10,000 UNITS/ 10 ML VIAL SLOW IVP SCH (11:45)
--- NOTE | 2020-02-12 12:08 | RAD ---
Exam: Chest one view: HISTORY: Fever, follow-up pneumonia COMPARISON: 02/08/2020 FINDINGS: Left dual-lumen venous access catheter. Postop midline sternotomy. Right-sided central line and injec tion port. Confluent alveolar parenchymal change in the left mid and upper lung zone little change from prior st udy. Increased markings in the right infrahilar region raising concern for minimal patchy right lower lobe pneumonia as well. IMPRESSION: Stable confluent parenchymal process in the left upper lobe evidence for pneumonia. Minimal increased markings in the right infrahilar region possibly some developing minimal right lowe r lobe pneumonia or atelectasis.
[2020-02-12 12:31] LABS: Hemoglobin 9.9 g/dL (14.0-18.0); Platelet Count 151 thou/uL (130-400)
[2020-02-12] MEDS ORDERED: Meropenem 1 GM in Sodium Chloride 0.9% 100 ML IVPB SCH (14:00)
[2020-02-12] MEDS: Heparin 25,000 units/D5W 500 ML IVPB SCH (14:24)
--- NOTE | 2020-02-12 14:53 | PRG ---
DATE OF SERVICE: 02/12/2020 SUBJECTIVE: A 69-year-old gentleman being seen for end-stage renal disease. The patient denied any nausea, vomiting, or chest pain. PHYSICAL EXAMINATION: General: The patient is awake and alert. VITAL SIGNS: Afebrile, pulse 75, breathing at 16, and blood pressure 142/88. HEENT: Head normocephalic and atraumatic. Eyes intact, no ulcers. Nose intact, no ulcers. Ears intact, no ulcers. NECK: Supple. No JVD. CHEST: Symmetrical and clear. CARDIOVASCULAR: Shows S1 and S2, no rub, no murmur. GASTROINTESTINAL: Abdomen is soft, bowel sounds positive. EXTREMITIES: Show no edema or ulcers. SKIN: Shows no rash or petechiae. MUSCULOSKELETAL: Shows no joint swelling or stiffness. GENITOURINARY: Shows no Connor or CVA tenderness. NEUROLOGIC: Motor intact. Cranial nerves intact. LABORATORY DATA: Reviewed. ASSESSMENT AND PLAN: 1. Stage 6 chronic kidney disease, continue hemodialysis. 2. Hypertensive, stable. 3. Anemia, stable. 4. Medication based on GFR appropriate. Job ID: [id number]
--- NOTE | 2020-02-12 15:32 | PDOC.HOSPP ---
- Subjective Encounter Date: 02/12/20 Subjective: Intermittent fever - Objective Vital Signs & Weight: Vital Signs (12 hours) Temp Pulse Resp BP Pulse Ox 02/12/20 07:45 95 02/12/20 07:37 98.9 F 99 20 148/88 H 96 02/12/20 03:44 100.5 F H Weight Weight 147 lb 11.355 oz I&O: 02/11/20 02/12/20 02/13/20 06:59 06:59 06:59 Intake Total 1280 1530 Output Total 400 850 Balance 880 680 Result Diagrams: 02/12/20 12:18 02/12/20 03:48 Additional Labs: Accuchecks 02/12/20 02/12/20 02/11/20 10:43 05:26 20:19 POC Glucose 164 H 112 H 165 H 02/11/20 16:57 POC Glucose 146 H Hospitalist ROS - Medication Medications: Active Medications Generic Name Dose Route Start Last Admin Trade Name Freq PRN Reason Stop Dose Admin Acetaminophen 650 mg 02/10/20 23:49 02/12/20 13:25 Tylenol PO 650 mg Q4H PRN Administration Headache/Fever or Pain Aspirin 325 mg 02/10/20 09:00 02/12/20 09:32 Aspirin PO 325 mg DAILY BLANCA Administration Atorvastatin Calcium 40 mg 02/09/20 21:00 02/11/20 20:30 Lipitor PO 40 mg HS BLANCA Administration Carvedilol 12.5 mg 02/09/20 21:00 02/11/20 20:31 Coreg PO Not Given QPM BLANCA Finasteride 5 mg 02/09/20 21:00 02/11/20 20:30 Proscar PO 5 mg HS BLANCA Administration Furosemide 40 mg 02/09/20 21:00 02/12/20 09:32 Lasix PO 40 mg BID BLANCA Administration Gabapentin 300 mg 02/11/20 09:00 02/12/20 09:32 Neurontin PO Not Given DAILY BLANCA Heparin Sodium (Porcine) 0 units 02/12/20 11:45 02/12/20 13:45 Heparin 1,000 Units/Ml (10 Ml) SLOW IVP 5,360 unit ASDIR BLANCA Administration Protocol Heparin Sodium/Dextrose 500 mls @ 0 mls/hr 02/12/20 11:45 02/12/20 14:24 Heparin 25,000 Units/D5w IVPB 500 mls INF BLANCA Administration Protocol Per Protocol Latanoprost 1 drop 02/09/20 21:00 02/11/20 20:31 Xalatan 0.005% Ophth Soln EA EYE 1 drp HS BLANCA Administration Loratadine 10 mg 02/10/20 09:00 02/12/20 09:32 Claritin PO 10 mg DAILY BLANCA Administration Tramadol HCl 50 mg 02/10/20 18:00 02/12/20 06:31 Ultram PO Not Given Q12H BLANCA - Exam General Appearance: NAD ENT: normocephalic atraumatic Neck: supple, no JVD Heart: RRR, no murmur, no gallops, no rubs Respiratory: rhonchi, tachypneic Gastrointestinal: soft, non-tender, non-distended, normal bowel sounds Extremities: no cyanosis Hosp A/P (1) Sepsis Code(s): A41.9 - SEPSIS, UNSPECIFIED ORGANISM Status: Acute (2) Left upper lobe pneumonia Code(s): J18.9 - PNEUMONIA, UNSPECIFIED ORGANISM Status: Acute (3) Pulmonary embolism Code(s): I26.99 - OTHER PULMONARY EMBOLISM WITHOUT ACUTE COR PULMONALE Status : Acute (4) Elevated troponin Code(s): R79.89 - OTHER SPECIFIED ABNORMAL FINDINGS OF BLOOD CHEMISTRY Status : Acute (5) Acute on chronic combined systolic and diastolic congestive heart failure Code(s): I50.43 - ACUTE ON CHRONIC COMBINED SYSTOLIC AND DIASTOLIC HRT FAIL Status: Acute (6) ESRD (end stage renal disease) on dialysis Code(s): N18.6 - END STAGE RENAL DISEASE; Z99.2 - DEPENDENCE ON RENAL DIALYSIS Status: Acute (7) B-cell lymphoma Code(s): C85.10 - UNSPECIFIED B-CELL LYMPHOMA, UNSPECIFIED SITE Status: Chronic (8) CAD (coronary artery disease) Code(s): I25.10 - ATHSCL HEART DISEASE OF [place] CORONARY ARTERY W/O ANG PCTRS Status: Chronic (9) Acute respiratory failure with hypoxia Code(s): J96.01 - ACUTE RESPIRATORY FAILURE WITH HYPOXIA Status: Acute - Plan Change ABX to Meropenem and levofloxacin. Leukocytosis worsening Cultures showing no growth so far. Start Heparin drip for PE HD per nephrology. May consult Oncology if he does not improve.
[2020-02-12] MEDS: MEROPENEM 1 GM/50 ML 1 GM in Premix Bag 1 BAG IVPB SCH (15:56)
[2020-02-12 20:24] LABS: PTT 118.7 SEC (22.9-36.1)
[2020-02-12] MEDS: Finasteride 5 MG TAB PO SCH (21:23)
[2020-02-12] MEDS: Carvedilol 25 MG TAB PO SCH (21:23)
[2020-02-12] MEDS: Atorvastatin Calcium 40 MG TAB PO SCH (21:23)
[2020-02-12] MEDS: Latanoprost 0.005% Ophth Soln 2.5 ml Bottle EA EYE SCH (21:24)
[2020-02-12] MEDS ORDERED: MEROPENEM 1 GM/50 ML 1 GM in Premix Bag 1 BAG IVPB SCH (22:00)
[2020-02-13] MEDS: MEROPENEM 1 GM/50 ML 1 GM in Premix Bag 1 BAG IVPB SCH ×4 (02:14→23:48)
[2020-02-13 04:54] LABS: Anion Gap 11 mmol/L (10-20); BUN (Urea Nitrogen) 25 mg/dL (8.4-25.7); Calc. Creatinine Clearance 15 mL/min (70-130); Calcium 8.5 mg/dL (7.8-10.44); Carbon Dioxide 26 mmol/L (23-31); Chloride 102 mmol/L (98-107); Estimated GFR-MDRD 14; Glucose 179 mg/dL (83-110); Potassium 4.2 mmol/L (3.5-5.1); Sodium 135 mmol/L (136-145)
[2020-02-13 05:23] LABS: Hemoglobin 8.4 g/dL (14.0-18.0); MDiff Complete? YES; Mean Corpuscular HGB CONC 33.1 g/dL (32.0-36.0); Mean Platelet Volume 7.5 fL (7.4-10.4); Monocytes 5 % (0-10); Platelet Count 114 thou/uL (130-400); Platelet Morphology Comment Appears Decreased; RBC Distribution Width 14.9 % (11.5-14.5); White Blood Cell (WBC) Count 19.5 thou/uL (4.8-10.8)
[2020-02-13 05:26] LABS: PTT Greater than 250.0 SEC (22.9-36.1)
[2020-02-13 05:33] LABS: Band 19 % (5-11); Lymphocytes 5 % (21-51); Metamyelocyte 3 % (0-0); Myelocyte 1 % (0-0); Neutrophil 67 % (42-75)
[2020-02-13 05:34] LABS: Toxic Granulation SLIGHT
[2020-02-13] MEDS: traMADol HCl 50 MG TAB PO SCH ×2 (06:38→17:50)
[2020-02-13] MEDS ORDERED: Heparin 10,000 UNITS/ 10 ML VIAL ONE (10:33)
[2020-02-13] MEDS ORDERED: Vancomycin 1 GM in Premix Bag 1 BAG IVPB SCH (11:00)
[2020-02-13] MEDS: Acetaminophen 325 MG TAB PO PRN (11:11)
[2020-02-13 12:00] LABS: HBSAg Index 2.82 S/CO (0-0.99); Hep B Surf Ag Reflx Confirmation S/CO (NonReactive)
[2020-02-13] MEDS: Loratadine 10 MG TAB PO SCH (13:23)
[2020-02-13] MEDS: Aspirin 325 MG TAB PO SCH (13:23)
[2020-02-13] MEDS: Furosemide 40 MG TAB PO SCH ×2 (13:23→21:31)
[2020-02-13] MEDS: Gabapentin 300 MG CAP PO SCH (13:23)
[2020-02-13 13:58] LABS: PTT 148.1 SEC (22.9-36.1)
--- NOTE | 2020-02-13 14:26 | CON ---
DATE OF CONSULTATION: REASON FOR CONSULTATION: Sepsis. HISTORY OF PRESENT ILLNESS: Mr. Young is a 69-year-old gentleman with stage IV diffuse large B-cell lymphoma, double-expressor, in ABC type. 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 He completed chemotherapy for his lymphoma in 2018, and recently completed concurrent chemoradiation for his lung cancer. His last dose of chemo was on 02/01. He did receive pegfilgrastim on Thursday, 02/02. Over the weekend, he developed fever and shortness of breath and presented to the emergency room for evaluation. He was noted to be hypoxic. He underwent a CT angio of the chest, which was positive for pulmonary embolus. He also had consolidation of the left upper lobe consistent with pneumonia. He was started on IV antibiotics and a heparin drip, and has slowly improved over the last few days. His last temperature was early yesterday morning with a high of 100.5. PAST MEDICAL HISTORY: 1. Diffuse large B-cell lymphoma. 2. Stage IV lung cancer. 3. Diabetes mellitus 2. 4. End-stage renal disease, on dialysis. 5. Hypertension. 6. Coronary artery disease. 7. Hyperlipidemia. PAST SURGICAL HISTORY: 1. CABG. 2. Multiple eye surgeries. 3. Cholecystectomy. 4. MediPort placement. 5. Dialysis catheter placement. ALLERGIES: PENICILLIN. HOME MEDICATIONS: 1. Aspirin. 2. Lipitor. 3. Coreg. 4. Finasteride. 5. Gabapentin. 6. Insulin. 7. Zofran. 8. Compazine. 9. Lasix. 10. Ultram. FAMILY HISTORY: Father had thyroid cancer. Brother had pancreatic cancer. SOCIAL HISTORY: , has 4 children. Lives with his spouse. A [id number] history of smoking, quit in the . No alcohol or illicit drug use. REVIEW OF SYSTEMS: Positive for fatigue, weakness, and some shortness of breath. PHYSICAL EXAMINATION: VITAL SIGNS: Temperature is 98.1, pulse is 87, respiratory rate is 16, BP is 144/72, and he is 97% on 2 L. GENERAL: Chronically ill-appearing male, in no acute distress. HEENT: Normocephalic and atraumatic. Pupils are equal and reactive to light. NECK: Supple. CV: Regular rate and rhythm. LUNGS: Clear anterior. ABDOMEN: Soft and nontender. Bowel sounds are positive. EXTREMITIES: No clubbing or cyanosis. He has 2+ edema. SKIN: No rash. HEMATOLOGIC: Scattered bruising. No petechiae or purpura. NEUROLOGIC: Nonfocal. PERTINENT LABORATORY DATA AND X-RAYS: Current WBCs 19.5, hemoglobin 8.4, hematocrit 25.3, and platelet count is 114,000. He has 67% neutrophils, 19% bands, and 5% lymphs. Sodium is 135, potassium 4.2, chloride 102, CO2 is 26, BUN is 25, and creatinine 4.29, and calcium 8.5. Bilirubin is 0.8, AST is 24, ALT is 18, alkaline phosphatase is 125, serum total protein is 5.5, albumin 3.5, and globulin 2. Radiology per HPI. ASSESSMENT: 1. Left upper lobe pneumonia. 2. New pulmonary emboli. 3. Stage IV lung cancer with recent completion of CCRT. 4. History of diffuse large B-cell lymphoma. 5. History of cardiomyopathy with ejection fraction of 20% to 25%. DISCUSSION: The patient was not taking his aspirin as recommended nor was he wearing his LifeVest. It is unclear if he is followed up with Cardiology after diagnosis in December. He has improved with antibiotics and would continue heparin injections for his pulmonary emboli. He recently completed chemotherapy with Udenyca injection. His white count is maybe slightly elevated from this injection. He is due for a PET scan on 02/22, and possible Imfinzi immunotherapy after that. He has a followup appointment with Dr. De Jesus. We will follow along with his hospital course. Thank you for the consult. Job ID: [id number]
--- NOTE | 2020-02-13 14:42 | PDOC.HOSPP ---
- Subjective Encounter Date: 02/13/20 Subjective: The patient remains septic He is complaining of generalized pain Tolerating HD - Objective Vital Signs & Weight: Vital Signs (12 hours) Temp Pulse Resp BP BP Pulse Ox 02/13/20 12:13 98.2 F 103 H 14 130/64 94 L 02/13/20 07:26 98.1 F 87 16 144/72 H 97 02/13/20 03:05 98.2 F 92 18 111/59 L 96 Weight Weight 147 lb 11.355 oz I&O: 02/12/20 02/13/20 02/14/20 06:59 06:59 06:59 Intake Total 1530 Output Total 850 Balance 680 Result Diagrams: 02/13/20 04:23 02/13/20 04:23 Additional Labs: Accuchecks 02/13/20 02/13/20 02/12/20 10:55 05:37 20:07 POC Glucose 98 121 H 140 H 02/12/20 16:34 POC Glucose 152 H Hospitalist ROS - Medication Medications: Active Medications Generic Name Dose Route Start Last Admin Trade Name Freq PRN Reason Stop Dose Admin Acetaminophen 650 mg 02/10/20 23:49 02/13/20 11:11 Tylenol PO 650 mg Q4H PRN Administration Headache/Fever or Pain Aspirin 325 mg 02/10/20 09:00 02/13/20 13:23 Aspirin PO 325 mg DAILY BLANCA Administration Atorvastatin Calcium 40 mg 02/09/20 21:00 02/12/20 21:23 Lipitor PO 40 mg HS BLANCA Administration Carvedilol 12.5 mg 02/09/20 21:00 02/12/20 21:23 Coreg PO 12.5 mg QPM BLANCA Administration Finasteride 5 mg 02/09/20 21:00 02/12/20 21:23 Proscar PO 5 mg HS BLANCA Administration Furosemide 40 mg 02/09/20 21:00 02/13/20 13:23 Lasix PO 40 mg BID BLANCA Administration Gabapentin 300 mg 02/11/20 09:00 02/13/20 13:23 Neurontin PO 300 mg DAILY BLANCA Administration Heparin Sodium (Porcine) 0 units 02/12/20 11:45 02/12/20 13:45 Heparin 1,000 Units/Ml (10 Ml) SLOW IVP 5,360 unit ASDIR BLANCA Administration Protocol Heparin Sodium/Dextrose 500 mls @ 0 mls/hr 02/12/20 11:45 02/12/20 14:24 Heparin 25,000 Units/D5w IVPB 500 mls INF BLANCA Administration Protocol Per Protocol Meropenem 1 gm/ Device 50 mls @ 200 mls/hr 02/12/20 16:00 02/13/20 10:50 IVPB Not Given Q8H BLANCA Latanoprost 1 drop 02/09/20 21:00 02/12/20 21:24 Xalatan 0.005% Ophth Soln EA EYE 1 drp HS BLANCA Administration Loratadine 10 mg 02/10/20 09:00 02/13/20 13:23 Claritin PO 10 mg DAILY BLANCA Administration Sodium Chloride 10 ml 02/12/20 21:00 02/13/20 13:24 Flush - Normal Saline IVF Not Given Q12HR BLANCA Tramadol HCl 50 mg 02/10/20 18:00 02/13/20 06:38 Ultram PO Not Given Q12H BLANCA - Exam General Appearance: NAD ENT: normocephalic atraumatic Neck: supple, no JVD Heart: RRR, no murmur, no gallops, no rubs, normal peripheral pulses Respiratory: CTAB, normal chest expansion, rhonchi Gastrointestinal: soft, non-tender, non-distended, normal bowel sounds, no palpable masses Hosp A/P (1) Sepsis Code(s): A41.9 - SEPSIS, UNSPECIFIED ORGANISM Status: Acute (2) Left upper lobe pneumonia Code(s): J18.9 - PNEUMONIA, UNSPECIFIED ORGANISM Status: Acute (3) Pulmonary embolism Code(s): I26.99 - OTHER PULMONARY EMBOLISM WITHOUT ACUTE COR PULMONALE Status : Acute (4) Elevated troponin Code(s): R79.89 - OTHER SPECIFIED ABNORMAL FINDINGS OF BLOOD CHEMISTRY Status : Acute (5) Acute on chronic combined systolic and diastolic congestive heart failure Code(s): I50.43 - ACUTE ON CHRONIC COMBINED SYSTOLIC AND DIASTOLIC HRT FAIL Status: Acute (6) ESRD (end stage renal disease) on dialysis Code(s): N18.6 - END STAGE RENAL DISEASE; Z99.2 - DEPENDENCE ON RENAL DIALYSIS Status: Acute (7) B-cell lymphoma Code(s): C85.10 - UNSPECIFIED B-CELL LYMPHOMA, UNSPECIFIED SITE Status: Chronic (8) CAD (coronary artery disease) Code(s): I25.10 - ATHSCL HEART DISEASE OF [place] CORONARY ARTERY W/O ANG PCTRS Status: Chronic (9) Acute respiratory failure with hypoxia Code(s): J96.01 - ACUTE RESPIRATORY FAILURE WITH HYPOXIA Status: Acute - Plan Continue Meropenem and levofloxacin. Leukocytosis slightly improving Cultures showing no growth so far. Continue Heparin drip for PE HD per nephrology. Consult Oncology.
[2020-02-13] MEDS: Heparin 25,000 units/D5W 500 ML IVPB SCH (16:40)
--- NOTE | 2020-02-13 18:41 | PRG ---
DATE OF SERVICE: 02/13/2020 SUBJECTIVE: The patient was seen and examined at bedside and overnight events noted. The patient denies any shortness of breath or chest pain or palpitation. No history of nausea or vomiting or diarrhea or fever or chills or cramps. OBJECTIVE: GENERAL: This is a well-built male, in no apparent distress. VITAL SIGNS: Temperature 98.2. Heart rate 103. Respiratory rate 14. Blood pressure 130/64. HEENT: Atraumatic, normocephalic. Oral mucosa is moist. NECK: Supple. CARDIOVASCULAR: S1, S2 heard. Rate and rhythm regular. RESPIRATORY: Clear to auscultation. GASTROINTESTINAL: Abdomen is soft. MUSCULOSKELETAL: No tenderness. No edema. DERMATOLOGIC: No skin rash. NEUROLOGIC: Alert and awake and oriented x3. No focal neurologic deficits. Moving all the extremities. PSYCHIATRIC: Mood and affect normal. LABORATORY DATA: Potassium 4.2, BUN is 25, creatinine is 4.2. ASSESSMENT AND PLAN: 1. End-stage renal disease. Continue hemodialysis Thursday, Thursday, and Thursday. The patient was seen during dialysis, tolerating well. 2. History of hypertension. 3. Anemia of chronic disease. 4. Edema. Remove fluid with dialysis. Continue dialysis as tolerated. Job ID: [id number]
--- NOTE | 2020-02-13 18:41 | PRG ---
DATE OF SERVICE: 02/13/2020 SUBJECTIVE: The patient is sitting in bed, having a little bit of difficulty walking because of imbalance and weakness in the legs. No respiratory symptoms. No abdominal pain. OBJECTIVE: VITAL SIGNS: He has been afebrile. Blood pressure 120/58, pulse 92. LUNGS: Sounds are crackles in the left side. HEART: S1 and S2, regular rate. ABDOMEN: Soft, not distended. Port and dialysis access the same. LABORATORY DATA: White cell count 19.5, hemoglobin 8.4, platelets 114,000, and 19% bands. Blood cultures no growth 5 days, final result. Hepatitis surface antigen, reflex confirmation positive. ASSESSMENT AND DISCUSSION: History of coronary artery disease; large cell B lymphoma in remission, second primary with invasive adenocarcinoma histology, right lung, on chemotherapy; dyspnea with left upper lobe infiltrative changes; multiple areas of pulmonary embolism. Most likely scenario is pulmonary embolism causing the changes in the left lung as well as the neutrophilia. The patient is on broad-spectrum coverage in addition to the anticoagulation having being restarted. Depending on clinical progress, we will be able to discontinue antimicrobials in the ensuing days. Job ID: [id number]
[2020-02-13] MEDS: Atorvastatin Calcium 40 MG TAB PO SCH (21:31)
[2020-02-13] MEDS: Carvedilol 25 MG TAB PO SCH (21:31)
[2020-02-13] MEDS: Latanoprost 0.005% Ophth Soln 2.5 ml Bottle EA EYE SCH (21:31)
[2020-02-13] MEDS: Finasteride 5 MG TAB PO SCH (21:31)
[2020-02-14 05:25] LABS: Band 24 % (5-11); Eosinophils 2 % (0-10); Hemoglobin 8.3 g/dL (14.0-18.0); Lymphocytes 7 % (21-51); MDiff Complete? YES; Mean Corpuscular HGB CONC 32.7 g/dL (32.0-36.0); Mean Corpuscular Hemoglobin 34.9 pg (27.0-31.0); Mean Platelet Volume 7.7 fL (7.4-10.4); Monocytes 10 % (0-10); Myelocyte 1 % (0-0); Neutrophil 56 % (42-75); Platelet Count 124 thou/uL (130-400); RBC Distribution Width 14.8 % (11.5-14.5); Red Blood Cell (RBC) Count 2.38 mill/uL (4.70-6.10); White Blood Cell (WBC) Count 14.9 thou/uL (4.8-10.8)
[2020-02-14 05:31] LABS: Anion Gap 13 mmol/L (10-20); BUN (Urea Nitrogen) 13 mg/dL (8.4-25.7); Calc. Creatinine Clearance 22 mL/min (70-130); Calcium 8.3 mg/dL (7.8-10.44); Carbon Dioxide 28 mmol/L (23-31); Chloride 102 mmol/L (98-107); Estimated GFR-MDRD 22; Glucose 127 mg/dL (83-110); Potassium 3.8 mmol/L (3.5-5.1); Sodium 139 mmol/L (136-145)
[2020-02-14] MEDS: traMADol HCl 50 MG TAB PO SCH ×2 (05:43→18:36)
[2020-02-14 06:49] LABS: HBSAg Index 2.26 S/CO (0-0.99)
[2020-02-14 06:53] LABS: Hep B Surf Ag Reflx Confirmation S/CO (NonReactive)
--- NOTE | 2020-02-14 08:42 | PDOC.MOPN ---
Interval History: Feeling better today, eating solid foods w/o nausea. He remains on O2, states he gets nervous if he walks to the bathroom w/o it. No fevers, bleeding. - Vital Signs Vital Signs: Vital Signs (12 hours) Temp Pulse Resp BP BP Pulse Ox 02/14/20 08:02 99.1 F 91 18 116/59 L 92 L 02/14/20 03:14 99.2 F 98 18 95/54 L 92 L Weight Weight 96 lb 1.6 oz - Physical Exam General: Alert, Oriented x3, Cooperative HEENT: Atraumatic, EOMI Lungs: Clear to auscultation Cardiovascular: Regular rate Neurological: Cranial nerves 3-12 NL Psych/Mental Status: Mood NL - Labs Result Diagrams: 02/14/20 04:14 02/14/20 04:14 Lab results: Laboratory Results - last 24 hr 02/14/20 05:45: POC Glucose 133 H 02/14/20 04:14: WBC 14.9 H, RBC 2.38 L, Hgb 8.3 L, Hct 25.4 L, MCV 107.0 H, MCH 34.9 H, MCHC 32.7, RDW 14.8 H, Plt Count 124 L, MPV 7.7, Neutrophils % (Manual) 56, Band Neuts % (Manual) 24 H, Lymphocytes % (Manual) 7 L, Monocytes % (Manual ) 10, Eosinophils % (Manual) 2, Myelocytes % 1 H 02/14/20 04:14: Sodium 139, Potassium 3.8, Chloride 102, Carbon Dioxide 28, Anion Gap 13, BUN 13, Creatinine 2.89 H, Estimated GFR (MDRD) 22, Glucose 127 H , Calcium 8.3 02/14/20 04:14: Hep Bs Antigen Reflx Confirmation H 02/13/20 22:42: APTT 65.9 H 02/13/20 21:00: POC Glucose 165 H 02/13/20 16:55: POC Glucose 127 H 02/13/20 16:00: APTT 57.0 H 02/13/20 13:13: APTT 148.1 H* 02/13/20 10:55: POC Glucose 98 02/13/20 09:00: Hep Bs Antigen Reflx Confirmation H A/P - Problem (1) Lung cancer Current Visit: Yes Code(s): C34.90 - MALIGNANT NEOPLASM OF UNSP PART OF UNSP BRONCHUS OR LUNG Status: Acute (2) Left upper lobe pneumonia Current Visit: Yes Code(s): J18.9 - PNEUMONIA, UNSPECIFIED ORGANISM Status: Acute (3) Pulmonary embolism Current Visit: Yes Code(s): I26.99 - OTHER PULMONARY EMBOLISM WITHOUT ACUTE COR PULMONALE Status: Acute (4) B-cell lymphoma Current Visit: No Code(s): C85.10 - UNSPECIFIED B-CELL LYMPHOMA, UNSPECIFIED SITE Status: Chronic - Plan Plan: Cont heparin gtt for now, convert to oral anticoagulant for discharge home Titrate off O2 as tolerated Afebrile, may convert IV antibiotics to oral antibiotics as per Dr. Quintana
[2020-02-14] MEDS: MEROPENEM 1 GM/50 ML 1 GM in Premix Bag 1 BAG IVPB SCH ×2 (09:33→21:03)
[2020-02-14] MEDS: Gabapentin 300 MG CAP PO SCH (09:39)
[2020-02-14] MEDS: Loratadine 10 MG TAB PO SCH (09:40)
[2020-02-14] MEDS: Furosemide 40 MG TAB PO SCH ×2 (09:40→21:03)
[2020-02-14] MEDS: Aspirin 325 MG TAB PO SCH (09:40)
[2020-02-14 11:59] LABS: Hemoglobin 9.1 g/dL (14.0-18.0); Platelet Count 136 thou/uL (130-400)
[2020-02-14] MEDS ORDERED: MERREM IVPB PRN (13:10)
--- NOTE | 2020-02-14 13:36 | PRG ---
DATE OF SERVICE: 02/14/2020 SUBJECTIVE: Patient was seen and examined at bedside and overnight events noted. Patient denies any shortness of breath or chest pain or palpitation. No history of nausea or vomiting or diarrhea or fever or chills or cramps. OBJECTIVE: GENERAL: This is a well-built male, in no apparent distress. VITAL SIGNS: Temperature 99.1, pulse 91, respiratory rate 18, blood pressure 116/59. HEENT: Atraumatic, normocephalic. Oral mucosa is moist NECK: Supple. CARDIOVASCULAR: S1, S2 heard. Rate and rhythm regular. RESPIRATORY: Clear to auscultation. GASTROINTESTINAL: Abdomen is soft. MUSCULOSKELETAL: No tenderness. No edema. DERMATOLOGIC: No skin rash. NEUROLOGIC: Alert and awake and oriented X3. No focal neurologic deficits. Moving all the extremities. PSYCHIATRIC: Mood and affect normal. LABORATORY DATA: Potassium 3.8, BUN is 39, and creatinine is 2.9. ASSESSMENT AND PLAN: 1. End-stage renal disease. Continue dialysis Thursday, Thursday, Thursday. 2. Edema, controlled. 3. Hypertension. 4. Anemia. 5. We will monitor. We will continue dialysis Thursday, Thursday, Thursday. Job ID: [id number]
--- NOTE | 2020-02-14 13:46 | PDOC.PALCO ---
Palliative Care Consult - Consult Details Requesting Physician: Dr Roa Reason for Consult: goals of care, advance directives assistance, complex decision-making Family Members Present: - Pertinent HPI 69 year old male who has known B Cell lymphoma, lung cancer, heart failure, CABG , edn stage renal disease on hemodialysis. He resides in a private home and had onset of shortness of breat, productive cough,left sided chest pain, fever, and cough came to the emergency room for evaluation. Onset 48 hours prior to presentation and no interventions resolved symptoms. Admitted for spesis, pulmonary embolism, and further medical management. - Pertinent PMH Lung cancer, B-Cell Lymphoma,CHF, HTN, End Stage Renal disease requiring dialysis - Social History Smoking Status: Unknown if ever smoked Smoking: no tobacco exposure Alcohol Use: none Drug Use History: none Living Situation: - Medications MAR Reviewed: Yes - Allergies Allergies/Adverse Reactions: Allergies Allergy/AdvReac Type Severity Reaction Status Date / Time Penicillins Allergy Severe DIFFICULTY Verified 12/07/19 00:34 BREATHING clindamycin Allergy Verified 12/07/19 00:34 gentamicin Allergy Verified 12/07/19 00:34 - ROS Constitutional: loss appetite, weakness Eyes: other (denies visual changes) ENT: alteration in dentition, dry mouth Respiratory: shortness of breath with extertion Cardiology: other (denies chest pain, palpitations) Gastrointestinal: constipation Genitourinary: other (denies urinary complaints) Musculoskeletal: arthritis/arthralgias Neurological: changes in taste, other (denies changes in speech, tremor) Psychological: other (denies depression, anxiety) - Objective Vital Signs: Vital Signs - Most Recent Temp Pulse Resp BP Pulse Ox 98.7 F 99 18 114/58 L 96 02/14/20 13:06 02/14/20 13:06 02/14/20 13:06 02/14/20 13:33 02/14/20 13:06 Palliative Performance Scale: 40 - Physical Exam Constitutional: NAD, ill appearing HEENT: EOMI, moist MMs, sclera anicteric, poor dentition Respiratory: unlabored breathing, diminished lung sound Cardiovascular: RRR Gastrointestinal: soft, non-tender, positive bowel sounds Genitourinary: continent Musculoskeletal: no clubbing Neurology: moves all 4 limbs Skin: cap refill <2 seconds, no lesions, no rash Psychiatric: A&O x 3, normal mood - Problem List (1) Palliative care encounter Code(s): Z51.5 - ENCOUNTER FOR PALLIATIVE CARE Current Visit: Yes Status: Acute (2) Physical deconditioning Code(s): R53.81 - OTHER MALAISE Current Visit: Yes Status: Acute (3) Lung cancer Code(s): C34.90 - MALIGNANT NEOPLASM OF UNSP PART OF UNSP BRONCHUS OR LUNG Current Visit: Yes Status: Acute (4) Acute on chronic combined systolic and diastolic congestive heart failure Code(s): I50.43 - ACUTE ON CHRONIC COMBINED SYSTOLIC AND DIASTOLIC HRT FAIL Current Visit: No Status: Acute (5) ESRD (end stage renal disease) on dialysis Code(s): N18.6 - END STAGE RENAL DISEASE; Z99.2 - DEPENDENCE ON RENAL DIALYSIS Current Visit: No Status: Acute (6) Anemia Code(s): D64.9 - ANEMIA, UNSPECIFIED Current Visit: No Status: Chronic Qualifiers: (7) B-cell lymphoma Code(s): C85.10 - UNSPECIFIED B-CELL LYMPHOMA, UNSPECIFIED SITE Current Visit : No Status: Chronic (8) Chronic kidney disease, stage 4 (severe) Code(s): N18.4 - CHRONIC KIDNEY DISEASE, STAGE 4 (SEVERE) Current Visit: No Status: Chronic - Plan/Recommendations Plan: Will schedule medications for constipation Denies pain, shortness of breath. Appetite has improved, reduced nausea. Discussed measures to mitigate dry mouth and altered taste related to medication. Will also order biotene and encouraged oral care. Continue with full resuscitation measures, and will re-evaluate after appt with Dr Rutledge and follow up PET scan with oncology on 02/19. Plan to continue with [facility] at discharge, follow up with scheduled appointments and alter goal of care depending on findings with PET scan 02/19. Palliative Care will sign off as goals of care determined, resuscitation status addressed. Please reconsult if we can be of further assistance with this delightful gentleman. [60] minutes spent on this encounter with >50% of the time in counseling and coordination of care. Thank you for this very appropriate consult.
[2020-02-14] MEDS: Atorvastatin Calcium 40 MG TAB PO SCH (21:03)
[2020-02-14] MEDS: Finasteride 5 MG TAB PO SCH (21:03)
[2020-02-14] MEDS: Latanoprost 0.005% Ophth Soln 2.5 ml Bottle EA EYE SCH (21:04)
[2020-02-14] MEDS: Carvedilol 25 MG TAB PO SCH (21:04)
[2020-02-14] MEDS: Heparin 25,000 units/D5W 500 ML IVPB SCH (21:05)
--- NOTE | 2020-02-14 21:26 | PDOC.HOSPP ---
- Subjective Encounter Date: 02/14/20 - Objective Vital Signs & Weight: Vital Signs (12 hours) Temp Pulse Resp BP BP Pulse Ox 02/14/20 19:24 98.9 F 104 H 18 117/61 96 02/14/20 16:00 98.3 F 100 16 118/63 92 L 02/14/20 13:33 114/58 L 02/14/20 13:06 98.7 F 99 18 90/53 L 96 Weight Weight 154 lb 1.65 oz I&O: 02/13/20 02/14/20 02/15/20 06:59 06:59 06:59 Intake Total 700 Output Total 750 Balance -50 Result Diagrams: 02/14/20 11:51 02/14/20 04:14 Additional Labs: Accuchecks 02/14/20 02/14/20 02/14/20 20:49 16:48 05:45 POC Glucose 147 H 149 H 133 H Hospitalist ROS - Medication Medications: Active Medications Generic Name Dose Route Start Last Admin Trade Name Freq PRN Reason Stop Dose Admin Acetaminophen 650 mg 02/10/20 23:49 02/13/20 11:11 Tylenol PO 650 mg Q4H PRN Administration Headache/Fever or Pain Aspirin 325 mg 02/10/20 09:00 02/14/20 09:40 Aspirin PO 325 mg DAILY BLANCA Administration Atorvastatin Calcium 40 mg 02/09/20 21:00 02/14/20 21:03 Lipitor PO 40 mg HS BLANCA Administration Carvedilol 12.5 mg 02/09/20 21:00 02/14/20 21:04 Coreg PO Not Given QPM BLANCA Finasteride 5 mg 02/09/20 21:00 02/14/20 21:03 Proscar PO 5 mg HS BLANCA Administration Furosemide 40 mg 02/09/20 21:00 02/14/20 21:03 Lasix PO 40 mg BID BLANCA Administration Gabapentin 300 mg 02/11/20 09:00 02/14/20 09:39 Neurontin PO Not Given DAILY BLANCA Heparin Sodium (Porcine) 0 units 02/12/20 11:45 02/12/20 13:45 Heparin 1,000 Units/Ml (10 Ml) SLOW IVP 5,360 unit ASDIR BLANCA Administration Protocol Levofloxacin 500 mg/ Device 100 mls @ 100 mls/hr 02/14/20 12:00 02/14/20 13: 19 IVPB 100 mls Q2DAYS BLANCA Administration Heparin Sodium/Dextrose 500 mls @ 0 mls/hr 02/12/20 11:45 02/14/20 21:05 Heparin 25,000 Units/D5w IVPB 500 mls INF BLANCA Administration Protocol Per Protocol Meropenem 1 gm/ Device 50 mls @ 200 mls/hr 02/14/20 20:00 02/14/20 21:03 IVPB 50 mls 0800,2000 BLANCA Administration Latanoprost 1 drop 02/09/20 21:00 02/14/20 21:04 Xalatan 0.005% Ophth Soln EA EYE 1 drp HS BLANCA Administration Loratadine 10 mg 02/10/20 09:00 02/14/20 09:40 Claritin PO 10 mg DAILY BLANCA Administration Sodium Chloride 10 ml 02/12/20 21:00 02/14/20 21:05 Flush - Normal Saline IVF 10 ml Q12HR BLANCA Administration Tramadol HCl 50 mg 02/10/20 18:00 02/14/20 18:36 Ultram PO 50 mg Q12H BLANCA Administration - Exam General Appearance: awake alert ENT: normocephalic atraumatic Neck: supple, no JVD Heart: RRR, no murmur, no gallops, no rubs, normal peripheral pulses Respiratory: CTAB, no wheezes, no rales, no ronchi, normal chest expansion Gastrointestinal: soft, non-tender, non-distended, normal bowel sounds Hosp A/P (1) Sepsis Code(s): A41.9 - SEPSIS, UNSPECIFIED ORGANISM Status: Acute (2) Left upper lobe pneumonia Code(s): J18.9 - PNEUMONIA, UNSPECIFIED ORGANISM Status: Acute (3) Pulmonary embolism Code(s): I26.99 - OTHER PULMONARY EMBOLISM WITHOUT ACUTE COR PULMONALE Status : Acute (4) Elevated troponin Code(s): R79.89 - OTHER SPECIFIED ABNORMAL FINDINGS OF BLOOD CHEMISTRY Status : Acute (5) Acute on chronic combined systolic and diastolic congestive heart failure Code(s): I50.43 - ACUTE ON CHRONIC COMBINED SYSTOLIC AND DIASTOLIC HRT FAIL Status: Acute (6) ESRD (end stage renal disease) on dialysis Code(s): N18.6 - END STAGE RENAL DISEASE; Z99.2 - DEPENDENCE ON RENAL DIALYSIS Status: Acute (7) B-cell lymphoma Code(s): C85.10 - UNSPECIFIED B-CELL LYMPHOMA, UNSPECIFIED SITE Status: Chronic (8) CAD (coronary artery disease) Code(s): I25.10 - ATHSCL HEART DISEASE OF [place] CORONARY ARTERY W/O ANG PCTRS Status: Chronic (9) Acute respiratory failure with hypoxia Code(s): J96.01 - ACUTE RESPIRATORY FAILURE WITH HYPOXIA Status: Acute - Plan The patient was seen and examined. He is feeling better today. Leukocytosis is improving. Continue heparin drip for pulmonary embolism and continue broad-spectrum antibiotics per ID. Hemodialysis per nephrology.
[2020-02-15 05:12] LABS: Band 14 % (5-11); Eosinophils 1 % (0-10); Hemoglobin 8.7 g/dL (14.0-18.0); Lymphocytes 10 % (21-51); MDiff Complete? YES; Mean Corpuscular HGB CONC 33.8 g/dL (32.0-36.0); Mean Corpuscular Hemoglobin 35.8 pg (27.0-31.0); Mean Platelet Volume 8.1 fL (7.4-10.4); Metamyelocyte 1 % (0-0); Monocytes 9 % (0-10); Myelocyte 3 % (0-0); Neutrophil 62 % (42-75); Platelet Count 132 thou/uL (130-400); Red Blood Cell (RBC) Count 2.42 mill/uL (4.70-6.10); Toxic Granulation SLIGHT; White Blood Cell (WBC) Count 17.8 thou/uL (4.8-10.8)
[2020-02-15 05:41] LABS: Anion Gap 14 mmol/L (10-20); BUN (Urea Nitrogen) 24 mg/dL (8.4-25.7); Calc. Creatinine Clearance 18 mL/min (70-130); Calcium 8.5 mg/dL (7.8-10.44); Carbon Dioxide 25 mmol/L (23-31); Chloride 102 mmol/L (98-107); Estimated GFR-MDRD 16; Glucose 101 mg/dL (83-110); Potassium 3.8 mmol/L (3.5-5.1); Sodium 137 mmol/L (136-145)
[2020-02-15] MEDS: traMADol HCl 50 MG TAB PO SCH ×2 (05:52→17:55)
[2020-02-15] MEDS ORDERED: Heparin 10,000 UNITS/ 10 ML VIAL ONE (08:38)
[2020-02-15] MEDS: Aspirin 325 MG TAB PO SCH (08:44)
[2020-02-15] MEDS: Bisacodyl 5 MG TAB PO SCH (08:44)
[2020-02-15] MEDS: Gabapentin 300 MG CAP PO SCH (08:44)
[2020-02-15] MEDS: Furosemide 40 MG TAB PO SCH ×2 (08:44→20:19)
[2020-02-15] MEDS: Loratadine 10 MG TAB PO SCH (08:45)
[2020-02-15] MEDS: BIOTENE MOUTH SPRAY 44.3 ML MM SCH (08:46)
[2020-02-15] MEDS: MEROPENEM 1 GM/50 ML 1 GM in Premix Bag 1 BAG IVPB SCH ×2 (12:36→20:17)
--- NOTE | 2020-02-15 14:20 | PDOC.HOSPP ---
- Subjective Encounter Date: 02/15/20 Subjective: Feels better Tolerated HD No Fever - Objective Vital Signs & Weight: Vital Signs (12 hours) Temp Pulse Resp BP BP BP Pulse Ox 02/15/20 11:21 98.2 F 92 18 111/60 95 02/15/20 07:14 98.8 F 100 18 102/59 L 93 L 02/15/20 04:30 98.8 F 95 18 108/56 L 97 Weight Weight 154 lb 1.65 oz I&O: 02/14/20 02/15/20 02/16/20 06:59 06:59 06:59 Intake Total 2433 Output Total 1250 Balance 1183 Result Diagrams: 02/15/20 04:12 02/15/20 04:12 Additional Labs: Accuchecks 02/15/20 02/15/20 02/14/20 11:50 05:24 20:49 POC Glucose 119 H 113 H 147 H 02/14/20 16:48 POC Glucose 149 H Hospitalist ROS - Medication Medications: Active Medications Generic Name Dose Route Start Last Admin Trade Name Freq PRN Reason Stop Dose Admin Acetaminophen 650 mg 02/10/20 23:49 02/13/20 11:11 Tylenol PO 650 mg Q4H PRN Administration Headache/Fever or Pain Aspirin 325 mg 02/10/20 09:00 02/15/20 08:44 Aspirin PO 325 mg DAILY BLANCA Administration Atorvastatin Calcium 40 mg 02/09/20 21:00 02/14/20 21:03 Lipitor PO 40 mg HS BLANCA Administration Bisacodyl 10 mg 02/15/20 09:00 02/15/20 08:44 Dulcolax PO 10 mg DAILY BLANCA Administration Carvedilol 12.5 mg 02/09/20 21:00 02/14/20 21:04 Coreg PO Not Given QPM BLANCA Finasteride 5 mg 02/09/20 21:00 02/14/20 21:03 Proscar PO 5 mg HS BLANCA Administration Furosemide 40 mg 02/09/20 21:00 02/15/20 08:44 Lasix PO 40 mg BID BLANCA Administration Gabapentin 300 mg 02/11/20 09:00 02/15/20 08:44 Neurontin PO 300 mg DAILY BLANCA Administration Heparin Sodium (Porcine) 0 units 02/12/20 11:45 02/12/20 13:45 Heparin 1,000 Units/Ml (10 Ml) SLOW IVP 5,360 unit ASDIR BLANCA Administration Protocol Levofloxacin 500 mg/ Device 100 mls @ 100 mls/hr 02/14/20 12:00 02/14/20 13: 19 IVPB 100 mls Q2DAYS BLANCA Administration Heparin Sodium/Dextrose 500 mls @ 0 mls/hr 02/12/20 11:45 02/14/20 21:05 Heparin 25,000 Units/D5w IVPB 500 mls INF BLANCA Administration Protocol Per Protocol Meropenem 1 gm/ Device 50 mls @ 200 mls/hr 02/14/20 20:00 02/15/20 12:36 IVPB 50 mls 0800,2000 BLANCA Administration Latanoprost 1 drop 02/09/20 21:00 02/14/20 21:04 Xalatan 0.005% Ophth Soln EA EYE 1 drp HS BLANCA Administration Loratadine 10 mg 02/10/20 09:00 02/15/20 08:45 Claritin PO 10 mg DAILY BLANCA Administration Miscellaneous Medication 0 ml 02/15/20 09:00 02/15/20 08:46 Biotene Moisturizing Mouth MM 1 spr QAM BLANCA Administration Sodium Chloride 10 ml 02/12/20 21:00 02/15/20 12:09 Flush - Normal Saline IVF 10 ml Q12HR BLANCA Administration Tramadol HCl 50 mg 02/10/20 18:00 02/15/20 05:52 Ultram PO 50 mg Q12H BLANCA Administration - Exam General Appearance: NAD, awake alert Neck: supple, no JVD Heart: RRR, no murmur, no gallops, no rubs, normal peripheral pulses Respiratory: CTAB, no wheezes, no rales, no ronchi, normal chest expansion Gastrointestinal: soft, non-tender, non-distended, normal bowel sounds, no palpable masses Hosp A/P (1) Sepsis Code(s): A41.9 - SEPSIS, UNSPECIFIED ORGANISM Status: Acute (2) Left upper lobe pneumonia Code(s): J18.9 - PNEUMONIA, UNSPECIFIED ORGANISM Status: Acute (3) Pulmonary embolism Code(s): I26.99 - OTHER PULMONARY EMBOLISM WITHOUT ACUTE COR PULMONALE Status : Acute (4) Elevated troponin Code(s): R79.89 - OTHER SPECIFIED ABNORMAL FINDINGS OF BLOOD CHEMISTRY Status : Acute (5) Acute on chronic combined systolic and diastolic congestive heart failure Code(s): I50.43 - ACUTE ON CHRONIC COMBINED SYSTOLIC AND DIASTOLIC HRT FAIL Status: Acute (6) ESRD (end stage renal disease) on dialysis Code(s): N18.6 - END STAGE RENAL DISEASE; Z99.2 - DEPENDENCE ON RENAL DIALYSIS Status: Acute (7) B-cell lymphoma Code(s): C85.10 - UNSPECIFIED B-CELL LYMPHOMA, UNSPECIFIED SITE Status: Chronic (8) CAD (coronary artery disease) Code(s): I25.10 - ATHSCL HEART DISEASE OF [place] CORONARY ARTERY W/O ANG PCTRS Status: Chronic (9) Acute respiratory failure with hypoxia Code(s): J96.01 - ACUTE RESPIRATORY FAILURE WITH HYPOXIA Status: Acute - Plan The patient was seen and examined. He is feeling better today. Leukocytosis is stable but the patient feeling better. This could be related to PE rather than active infection. Cultures negative. Check Procalcitonin tomorrow and de-escalate ABX if low. Continue heparin drip for pulmonary embolism and continue broad-spectrum antibiotics per ID. Hemodialysis per nephrology.
[2020-02-15 14:47] VITALS: BMI 22.1
--- NOTE | 2020-02-15 17:21 | PRG ---
DATE OF SERVICE: 02/15/2020 SUBJECTIVE: The patient was seen and examined at bedside and overnight events noted. The patient denies any shortness of breath or chest pain or palpitation. No history of nausea or vomiting or diarrhea or fever or chills or cramps. OBJECTIVE: GENERAL: This is a well-built male, in no apparent distress. VITAL SIGNS: Temperature 98.2. Heart rate 99. Respiratory rate 18. Blood pressure 111/68. HEENT: Atraumatic, normocephalic. Oral mucosa is moist. NECK: Supple. CARDIOVASCULAR: S1, S2 heard. Rate and rhythm regular. RESPIRATORY: Clear to auscultation. GASTROINTESTINAL: Abdomen is soft. MUSCULOSKELETAL: No tenderness. No edema. DERMATOLOGIC: No skin rash. NEUROLOGIC: Alert and awake and oriented x3. No focal neurologic deficits. Moving all the extremities. PSYCHIATRIC: Mood and affect normal. LABORATORY DATA: Potassium is 3.8, BUN is 24, creatinine is 3.7. ASSESSMENT AND PLAN: 1. End-stage renal disease. Continue dialysis as tolerated. 2. Edema. 3. Hypertension. 4. Anemia. Continue dialysis as tolerated Thursday, Thursday, and Thursday. Job ID: [id number]
[2020-02-15] MEDS: Carvedilol 25 MG TAB PO SCH (20:18)
[2020-02-15] MEDS: Atorvastatin Calcium 40 MG TAB PO SCH (20:18)
[2020-02-15] MEDS: Finasteride 5 MG TAB PO SCH (20:18)
[2020-02-15] MEDS: Latanoprost 0.005% Ophth Soln 2.5 ml Bottle EA EYE SCH (20:18)
[2020-02-16] MEDS: Heparin 25,000 units/D5W 500 ML IVPB SCH (02:38)
[2020-02-16 05:13] LABS: Anion Gap 14 mmol/L (10-20); BUN (Urea Nitrogen) 19 mg/dL (8.4-25.7); Calc. Creatinine Clearance 22 mL/min (70-130); Calcium 8.4 mg/dL (7.8-10.44); Carbon Dioxide 29 mmol/L (23-31); Chloride 101 mmol/L (98-107); Estimated GFR-MDRD 20; Glucose 138 mg/dL (83-110); Potassium 4.5 mmol/L (3.5-5.1); Sodium 139 mmol/L (136-145)
[2020-02-16 05:54] LABS: Band 12 % (5-11); Hemoglobin 8.4 g/dL (14.0-18.0); Lymphocytes 9 % (21-51); MDiff Complete? YES; Mean Corpuscular HGB CONC 33.1 g/dL (32.0-36.0); Mean Platelet Volume 7.9 fL (7.4-10.4); Monocytes 5 % (0-10); Neutrophil 74 % (42-75); Platelet Count 145 thou/uL (130-400); Red Blood Cell (RBC) Count 2.41 mill/uL (4.70-6.10); White Blood Cell (WBC) Count 15.7 thou/uL (4.8-10.8)
[2020-02-16] MEDS: traMADol HCl 50 MG TAB PO SCH (05:56)
[2020-02-16] MEDS: Bisacodyl 5 MG TAB PO SCH (08:00)
[2020-02-16] MEDS: MEROPENEM 1 GM/50 ML 1 GM in Premix Bag 1 BAG IVPB SCH (08:00)
[2020-02-16] MEDS: Aspirin 325 MG TAB PO SCH (08:01)
[2020-02-16] MEDS: Gabapentin 300 MG CAP PO SCH (08:01)
[2020-02-16] MEDS: Furosemide 40 MG TAB PO SCH (08:01)
[2020-02-16] MEDS: Loratadine 10 MG TAB PO SCH (08:02)
[2020-02-16] MEDS: BIOTENE MOUTH SPRAY 44.3 ML MM SCH (08:10)
--- NOTE | 2020-02-16 10:29 | PDOC.MOPN ---
Interval History: No complaints. Feeling good. Wants to go home. - Vital Signs Vital Signs: Vital Signs (12 hours) Temp Pulse Resp BP BP BP Pulse Ox 02/16/20 06:56 98.7 F 97 18 113/59 L 98 02/16/20 04:00 98.8 F 105 H 18 106/55 L 94 L 02/15/20 23:53 107 H 114/53 L Weight Admit Weight 144 lb 3.2 oz Weight 151 lb 9.28 oz - Physical Exam General: Alert, Oriented x3, No acute distress HEENT: Atraumatic, PERRLA, EOMI, Mucous membr. moist/pink Lungs: Clear to auscultation, Normal air movement Cardiovascular: Regular rate, Normal S1, Normal S2, No murmurs, Gallops, Rubs Abdomen: Normal bowel sounds, Soft, No tenderness, No hepatospenomegaly, No masses Extremities: No clubbing, No cyanosis, No edema, Normal pulses, No tenderness/ swelling Neurological: Normal gait, Normal speech, Strength at 5/5 X4 ext, Normal tone, Sensation intact, Cranial nerves 3-12 NL, Reflexes 2+ - Labs Result Diagrams: 02/16/20 04:12 02/16/20 04:12 Lab results: Laboratory Results - last 24 hr 02/16/20 06:03: POC Glucose 133 H 02/16/20 04:12: Procalcitonin 0.28 02/16/20 04:12: APTT 72.8 H 02/16/20 04:12: WBC 15.7 H, RBC 2.41 L, Hgb 8.4 L, Hct 25.4 L, MCV 106.0 H, MCH 35.0 H, MCHC 33.1, RDW 15.0 H, Plt Count 145, MPV 7.9, Neutrophils % (Manual) 74 , Band Neuts % (Manual) 12 H, Lymphocytes % (Manual) 9 L, Monocytes % (Manual) 5 02/16/20 04:12: Sodium 139, Potassium 4.5, Chloride 101, Carbon Dioxide 29, Anion Gap 14, BUN 19, Creatinine 3.05 H, Estimated GFR (MDRD) 20, Glucose 138 H , Calcium 8.4 02/15/20 20:25: POC Glucose 217 H 02/15/20 17:07: POC Glucose 207 H 02/15/20 11:50: POC Glucose 119 H Status: lab reviewed by me A/P - Problem (1) Acute respiratory failure with hypoxia Current Visit: Yes Code(s): J96.01 - ACUTE RESPIRATORY FAILURE WITH HYPOXIA Status: Acute (2) Lung cancer Current Visit: Yes Code(s): C34.90 - MALIGNANT NEOPLASM OF UNSP PART OF UNSP BRONCHUS OR LUNG Status: Acute (3) Pulmonary embolism Current Visit: Yes Code(s): I26.99 - OTHER PULMONARY EMBOLISM WITHOUT ACUTE COR PULMONALE Status: Acute - Plan Plan: 1. discussed with Dr. De Jesus, recommend starting Eliquis 5mg po BID, stop heparin gtt 2. Ok to dc from our perspective 3. Follow-up clinic as scheduled.
--- NOTE | 2020-02-16 10:47 | PRG ---
DATE OF SERVICE: 02/16/2020 SUBJECTIVE: Patient was seen and examined at bedside and overnight events noted. Patient denies any shortness of breath or chest pain or palpitation. No history of nausea or vomiting or diarrhea or fever or chills or cramps. OBJECTIVE: General: This is a well-built male, in no apparent distress. Vital Signs: Temperature 98.7. Heart Rate 97. Respiratory rate 18. Blood pressure 113/59. HEENT: Atraumatic, normocephalic. Oral mucosa is moist. Neck: Supple. Cardiovascular: S1, S2 heard. Rate and rhythm regular. Respiratory: Clear to auscultation. Gastrointestinal: Abdomen is soft. Musculoskeletal: No tenderness. No edema. Dermatologic: No skin rash. Neurologic: Alert and awake and oriented x3. No focal neurologic deficits. Moving all the extremities. Psychiatric: Mood and affect normal. LABORATORY DATA: Potassium 4.5, BUN is 19, and creatinine is 3.05. ASSESSMENT AND PLAN: 1. End-stage renal disease. Continue dialysis on Thursday, Thursday, and Thursday. 2. Edema. I will remove fluid. 3. Hypertension. 4. Anemia of chronic disease. 5. Continue dialysis on Thursday, Thursday, Thursday as tolerated. Job ID: [id number]
[2020-02-16 11:36] VITALS: BP 127/68; TEMP 98.1
[2020-02-16 12:26] LABS: Hemoglobin 9.5 g/dL (14.0-18.0); Platelet Count 154 thou/uL (130-400)
[2020-02-16] MEDS ORDERED: Carvedilol 6.25 MG TAB PO SCH (12:30)
--- NOTE | 2020-02-16 16:25 | DIS ---
DATE OF ADMISSION: 02/08/2020 DATE OF DISCHARGE: 02/16/2020 DISCHARGE DIAGNOSES: 1. Sepsis. 2. Left upper lobe pneumonia. 3. Pulmonary embolism. 4. Elevated troponin. 5. Acute on chronic combined systolic and diastolic congestive heart failure. 6. End-stage renal disease, on hemodialysis. 7. B-cell lymphoma. 8. Coronary artery disease. 9. Acute respiratory failure with hypoxia. DISCHARGE MEDICATIONS: 1. Eliquis 5 mg orally twice daily for 6 months. 2. Tessalon Perles 100 mg orally three times a day as needed for cough. 3. Aspirin 325 mg orally daily. 4. Atorvastatin 40 mg orally nightly. 5. Carvedilol 12.5 mg orally at night. 6. Finasteride 5 mg orally nightly. 7. Furosemide 40 mg orally twice daily. 8. Gabapentin 300 mg orally three times a day. 9. Latanoprost eye drops one drop each eye at bedtime. 10. Loratadine 10 mg orally daily. 11. Tramadol 50 mg orally q.6 hours as needed for pain. 12. Insulin glargine 50 units subcu daily. 13. Zofran 4 mg orally every 6 hours as needed for nausea. 14. Compazine 5 mg q.8 hours as needed for nausea. HISTORY OF PRESENT ILLNESS AND HOSPITAL COURSE: The patient is a 69-year-old male with past medical history of B-cell lymphoma, lung cancer, heart failure with EF of 25%, coronary artery disease with history of CABG, and end-stage renal disease, on hemodialysis, who presented to the emergency department with shortness of breath, productive cough, left-sided chest pain, and fever for 48 hours prior to presentation. CT angiogram of the chest revealed left upper lobe infiltrates suggestive of pneumonia and multiple pulmonary emboli. The patient was admitted to the hospital and was managed with broad-spectrum IV antibiotics and heparin for anticoagulation for 8 days leading to gradual improvement in his symptoms. Eliquis was recommended by Oncology Service for discharge. This will be continued for 6 months. Prior to discharge, his procalcitonin level was low at 0.28 and ID recommended discontinuing antibiotics. Job ID: [id number]
== END 2020-02-16 13:18 | disposition home or self-care (01) | DRG 871 ==
LOC: ERS 10:22 → 2NO 13:32
PROVIDERS: ADMIT Internal Medicine; ATTEND Internal Medicine
DX: A41.9 Sepsis, unspecified organism (principal); J18.9 Pneumonia, unspecified organism; I26.99 Other pulmonary embolism without acute cor pulmonale; I50.43 Acute on chronic combined systolic (congestive) and diastolic (congestive) heart failure; J96.01 Acute respiratory failure with hypoxia; N18.6 End stage renal disease; C85.10 Unspecified B-cell lymphoma, unspecified site; I13.2 Hypertensive heart and chronic kidney disease with heart failure and with stage 5 chronic kidney disease, or end stage renal disease; I25.10 Atherosclerotic heart disease of native coronary artery without angina pectoris; D64.9 Anemia, unspecified; E78.5 Hyperlipidemia, unspecified; Z95.1 Presence of aortocoronary bypass graft; Z87.891 Personal history of nicotine dependence; Z79.82 Long term (current) use of aspirin; Z88.0 Allergy status to penicillin; Z88.9 Allergy status to unspecified drugs, medicaments and biological substances; Z90.49 Acquired absence of other specified parts of digestive tract; Z85.118 Personal history of other malignant neoplasm of bronchus and lung
CPT/HCPCS: 36415; 36416; 36430; 71045; 71275; 80048; 80053; 80202; 82553; 83605; 83735; 84145; 84484; 85007; 85014; 85018; 85025; 85027; 85049; 85730; 86850; 86900; 86901; 87040; 87340; 90935; 93005; 93798; 96365; 96367; 96372; 99283; G0257; J0692; J1642; J1644; J1650; J1956; J2185; J2543; J3370; J3475; J3490; J7050; P9016; Q9967

== ENCOUNTER 2020-02-23 08:15 | Outpatient (CLI) | payer MEDICARE, OTHER ==
--- NOTE | 2020-02-23 11:16 | PET ---
PET SCAN WITH CT ATTENUATION CORRECTION: HISTORY: Diffuse B-cell lymphoma, extranodal at organ site. Evaluate for progression of disease. TECHNIQUE: PET scan with CT attenuation correction was performed from the base of the brain to the proximal thig hs following the intravenous administration of 10.1 mCi of [id number]. COMPARISON: 09/06/2019. FINDINGS: HEAD AND NECK: No abnormal FDG localization. CHEST: There are multiple areas of opacification of the lung parenchyma which have definitely progres sed since the previous PET scan. Additionally, the degree of opacification of lung parenchyma appears to have progressed in the right lung since the CT angiogram the chest from 02/08/2020. There i s associated hypermetabolic activity in multiple parenchymal opacities in the right lung parenchyma. [employer] opacities have a maximum SUV of 1.8-2.0. Uptake favors an infectious or in flammatory process. There are 2 separate rounded nodules in the middle lobe which are not FDG avid. Maximum SUV is less than 1. Previously noted FDG avid focus in the right upper lobe is no longer evid ent. There are areas of FDG avidity scattered throughout the left lung. [employer] SUV is 2.1. These opacities have developed since the PET scan from 09/06/2019. When using the attenuation correcti on CT, the degree of opacification in the left lung has decreased since the CT angiogram of the chest of 02/08/2020. More focal consolidation is noted. There does not appear to be any hypermetabolic , axillary, or mediastinal/hilar lymphadenopathy. ABDOMEN AND PELVIS: CT used for attenuation correction demonstrates air in the biliary system. There is no abnormal FDG localization within the solid organs. Multiple left renal cortical cysts are noted on the attenuation correction CT. Upper normal hypermetabolic activity involving a left periaor tic lymph nodes with a maximum SUV of 2.2. Lymph node prominence has developed since the previous examination. There was no evidence of lymphadenopathy and the attenuation correction CT from 9. No evidence of inguinal or additional retroperitoneal/pelvic hypermetabolic activity/lymphadenopathy. OSSEOUS STRUCTURES: There is multifocal hypermetabolic activity involving the osseous structures. Max imum SUV in the right iliac wing is 2.5, left iliac wing is 2.6, L4 vertebral body 2.3, and 2.3 at the L2 vertebral body. Previous L2 vertebral body fracture has been documented. IMPRESSION: 1. Multifocal lung parenchymal opacities with upper normal FDG avidity suggesting infectious or infla mmatory process. 2. 2 separate well-circumscribed nonhypermetabolic nodules in the middle lobe. 3. Interval upper normal FDG avidity involving enlarged left periaortic lymph nodes which have develo ped since the previous exam. 4. Multifocal increased FDG avidity involving the bony pelvis and thoracic/lumbar vertebrae. Correlat e for osseous metastases. 5. Deauville score 5. Transcribed Date/Time: 02/23/2020 11:34 AM
== END 2020-02-23 08:16 | disposition home or self-care (01) ==
LOC: PET 08:15
PROVIDERS: ATTEND Internal Medicine Hematology & Oncology
DX: C34.11 Malignant neoplasm of upper lobe, right bronchus or lung (principal); C83.39 Diffuse large B-cell lymphoma, extranodal and solid organ sites; B02.9 Zoster without complications; R91.8 Other nonspecific abnormal finding of lung field
CPT/HCPCS: 78815; A9552

== ENCOUNTER 2020-03-23 15:34 | Inpatient (IN) | payer MEDICARE, OTHER ==
[2020-03-23 16:21] LABS: #Eosinphils 0.1 thou/uL (0.0-0.7); #Lymphocytes 1.6 thou/uL (1.20-3.40); #Neutrophils 6.1 thou/uL (1.40-6.50); %Basophils 0.3 % (0.0-1.0); %Eosinophils 0.7 % (0.0-10.0); %Monocytes 10.9 % (0.0-10.0); %Neutrophils 70.2 % (42.0-75.0); Hemoglobin 9.6 g/dL (14.0-18.0); Mean Corpuscular HGB CONC 31.8 g/dL (32.0-36.0); Mean Corpuscular Hemoglobin 33.9 pg (27.0-31.0); RBC Distribution Width 16.9 % (11.5-14.5); Red Blood Cell (RBC) Count 2.82 mill/uL (4.70-6.10); White Blood Cell (WBC) Count 8.8 thou/uL (4.8-10.8)
--- NOTE | 2020-03-23 16:36 | RAD ---
PORTABLE CHEST: Date: 03/23/2020 PROVIDED CLINICAL HISTORY: Weakness. FINDINGS: Comparison with 02/12/2020. Cardiac and mediastinal silhouette is unchanged in appearance. Left IJ dialysis catheter and right becerril bclavian implanted port are again seen in similar positions. Interval development of dense consolidat ion in the region of previously described left upper lung zone parenchymal opacity. There is developm ent of a right parahilar mass-like opacity, as well as consolidation involving the right middle lobe adjacent to the minor fissure. There is no evidence for pleural fluid or pneumothorax. IMPRESSION: Bilateral parenchymal opacities suggesting pneumonia. Other etiologies are not excluded and follow-up is recommended. POS: SHIVAM
[2020-03-23 16:44] LABS: Albumin 2.6 g/dL (3.4-4.8)
[2020-03-23 16:45] LABS: Calcium 8.3 mg/dL (7.8-10.44); Chloride 96 mmol/L (98-107); Potassium 3.7 mmol/L (3.5-5.1); Sodium 135 mmol/L (136-145)
[2020-03-23 16:46] LABS: Globulin 3.6 g/dL (2.4-3.5); Glucose 142 mg/dL (83-110); Protein, Total 6.2 g/dL (5.8-8.1)
[2020-03-23 16:48] LABS: Anion Gap 18 mmol/L (10-20); Bilirubin, Total 0.7 mg/dL (0.2-1.2); Carbon Dioxide 25 mmol/L (23-31)
[2020-03-23 16:49] LABS: Alkaline Phosphatase 129 U/L (40-110)
[2020-03-23 16:50] LABS: BUN (Urea Nitrogen) 34 mg/dL (8.4-25.7); Calc. Creatinine Clearance 0 mL/min (70-130); Estimated GFR-MDRD 13
[2020-03-23 16:51] LABS: AST (SGOT) 43 U/L (5-34)
[2020-03-23 16:52] LABS: ALT (SGPT) 17 U/L (8-55)
[2020-03-23 16:56] LABS: Magnesium 2.1 mg/dL (1.6-2.6); Phosphorus 4.2 mg/dL (2.3-4.7)
[2020-03-23 17:00] LABS: CKMB 2.4 ng/mL (0-6.6)
[2020-03-23 17:03] LABS: Hypochromia SLIGHT = 6-15 cells (100X) (0-5/hpf); MDiff Complete? YES; Mean Platelet Volume 9.1 fL (7.4-10.4); Microcytosis SLIGHT = 6-15 cells (100X) (0-5/hpf); Platelet Count 85 thou/uL (130-400); Platelet Morphology Comment Appears Decreased; Polychromasia SLIGHT = 2-3 cells (100X) (0-2/hpf); Tear Drops SLIGHT = 2-5 cells (100X) (0-1/hpf)
[2020-03-23] MEDS ORDERED: Cefepime 2 GM VIAL ONE (17:08)
[2020-03-23] MEDS ORDERED: Vancomycin 1.5 GRAM/300 ML BAG 1.5 GM in Premix Bag 1 BAG IVPB SCH (17:30)
[2020-03-23] MEDS ORDERED: Ondansetron PF 4 MG/2 ML Vial IVP PRN (17:37)
[2020-03-23] MEDS ORDERED: Dextrose 50% Abboject 50 ML SYRINGE SLOW IVP PRN (17:59)
[2020-03-23] MEDS ORDERED: Dextrose 5% in Water 1,000 ML IV PRN (17:59)
[2020-03-23] MEDS ORDERED: Vancomycin HCl 1.25 GM in Sodium Chloride 0.9% 250 ML 250 ML IVPB SCH (18:15)
[2020-03-23] MEDS ORDERED: Vancomycin HCl 500 MG in Sodium Chloride 0.9% 100 ML IVPB SCH (18:30)
[2020-03-23] MEDS ORDERED: Vancomycin 1 GM in Premix Bag 1 BAG IVPB SCH (18:30)
[2020-03-23] MEDS ORDERED: HOLD VANCOMYCIN FOR LEVEL >20 FS SCH (18:30)
[2020-03-23] MEDS ORDERED: Vancomycin HCl 750 MG in Sodium Chloride 0.9% 250 ML 250 ML IVPB SCH (18:30)
[2020-03-23] MEDS ORDERED: Vancomycin HCl 250 MG in Sodium Chloride 0.9% 100 ML IVPB SCH (18:30)
[2020-03-23 19:50] LABS: Troponin I 0.092 ng/mL (< 0.028)
[2020-03-23] MEDS: Latanoprost 0.005% Ophth Soln 2.5 ml Bottle EA EYE SCH (21:13)
[2020-03-23] MEDS: Apixaban 5 MG TAB PO SCH (21:14)
[2020-03-23] MEDS: Furosemide 40 MG TAB PO SCH (21:14)
[2020-03-23] MEDS: Atorvastatin Calcium 40 MG TAB PO SCH (21:14)
[2020-03-23] MEDS: Finasteride 5 MG TAB PO SCH (21:14)
[2020-03-23] MEDS: Gabapentin 300 MG CAP PO SCH (21:15)
[2020-03-23] MEDS: Carvedilol 6.25 MG TAB PO SCH (21:16)
--- NOTE | 2020-03-24 00:06 | HP ---
CHIEF COMPLAINT: Generalized weakness. HISTORY OF PRESENT ILLNESS: The patient is a 69-year-old male with past medical history of B-cell lymphoma, on chemotherapy with his last dose two days ago, lung cancer, heart failure with ejection fraction of 25%, coronary artery disease status post CABG, end-stage renal disease on hemodialysis, and recent diagnosis of pulmonary embolism, who presented to the ER today with complaints of generalized weakness and shortness of breath on minimal exertion. In the ER, he was found to be hypoxic in the low 80s in the room air. Chest x-ray revealed bilateral infiltrates suggesting pneumonia. The patient was swabbed for COVID and we were called for admission. REVIEW OF SYSTEMS: Negative except as noted in HPI. PAST MEDICAL HISTORY: As noted above. PAST SURGICAL HISTORY: This includes coronary artery bypass graft, multiple eye surgeries, cholecystectomy, dialysis catheter placement. ALLERGIES: THE PATIENT IS ALLERGIC TO PENICILLIN, CLINDAMYCIN, AND GENTAMICIN. PHYSICAL EXAMINATION: GENERAL: The patient is alert and oriented. HEENT: Head is normocephalic and atraumatic. Extraocular muscles are intact. NECK: Supple. No JVD is obvious. CHEST: Showed crackles bilaterally. CARDIOVASCULAR: Revealed normal S1, S2. No murmurs, rubs, or gallops. ABDOMEN: Soft, nontender, and nondistended. NEUROLOGIC: Revealed normal cranial nerves 2 through 12. No focal deficits. ASSESSMENT: 1. Acute hypoxic respiratory failure. 2. Health care associated pneumonia. 3. Rule out COVID-19. 4. Recent history of pulmonary emboli. 5. Stage IV lung cancer with recent completion of cCRT. 6. History of large cell B-cell lymphoma, on chemo. 7. End-stage renal disease, on hemodialysis. 8. Cardiomyopathy with EF of 20% to 25%. PLAN: We will place the patient on telemetry. Start broad-spectrum antibiotics of vancomycin, cefepime, and levofloxacin due to his immunosuppression and recent hospitalization. Continue hemodialysis per Nephrology. Consult Dr. De Jesus. Home medications were reviewed and restarted. Follow culture results. Job ID: [id number]
--- NOTE | 2020-03-24 02:07 | CON ---
DATE OF CONSULTATION: 03/23/2020 REASON FOR CONSULTATION: End-stage renal disease, on maintenance hemodialysis. HISTORY OF PRESENT ILLNESS: A very pleasant 69-year-old gentleman who presented to the hospital for possible pneumonia. The patient presented to the hospital with orthostasis. The patient denies any headache, numbness, tingling, or weakness. PAST MEDICAL HISTORY: Significant for hypertension, history of end-stage renal disease, history of anemia, history of lymphoma, history of diffuse large cell B-cell lymphoma, stage IV lung cancer, diabetes mellitus, coronary artery disease, hyperlipidemia, CABG, eye surgery, cholecystectomy, MediPort placement, and dialysis catheter placement. ALLERGIES: REVIEWED. HOME MEDICATIONS: List reviewed. Hospital medications reviewed. REVIEW OF SYSTEMS: 10-point review of systems was performed, was negative except for positives noted above. HEENT: Eyes intact, no diplopia. Ears: No hearing loss or earache. NOSE: No discharge or bleeding. CHEST: No cough or phlegm. ABDOMEN: No nausea or vomiting. GENITOURINARY: No hematuria. No Connor catheter. MUSCULOSKELETAL: No low back pain. No joint swelling or pain. NEUROLOGICAL: No syncope. No seizures. SKIN: No complaints of rash or itching. PSYCHIATRIC: No depression. CONSTITUTIONAL: No weight loss or loss of appetite. PHYSICAL EXAMINATION: GENERAL: The patient is awake and alert. VITAL SIGNS: Afebrile, pulse 75, breathing at 16, blood pressure 140/80. HEENT: Head normocephalic and atraumatic. Eyes intact, no ulcers. Nose intact, no ulcers. Ears intact, no ulcers. NECK: Supple. No JVD. CHEST: Symmetrical and clear. CARDIOVASCULAR: Shows S1 and S2, no rub, no murmur. GASTROINTESTINAL: Abdomen is soft, bowel sounds positive. EXTREMITIES: Show no edema or ulcers. SKIN: Shows no rash or petechiae. MUSCULOSKELETAL: Shows no joint swelling or stiffness. GENITOURINARY: Shows no Connor or CVA tenderness. NEUROLOGIC: Motor intact. Cranial nerves intact. LABORATORY DATA: Reviewed. ASSESSMENT AND PLAN: 1. Stage 6 chronic kidney disease. Plan dialysis Thursday, Thursday, Thursday .. 2. Hypertension, stable. 3. Anemia, stable. 4. Medication based on GFR appropriate. 5. Pneumonia, management per primary team. Job ID: [id number]
[2020-03-24 05:24] LABS: Anion Gap 13 mmol/L (10-20); BUN (Urea Nitrogen) 38 mg/dL (8.4-25.7); Calc. Creatinine Clearance 14 mL/min (70-130); Calcium 8.7 mg/dL (7.8-10.44); Carbon Dioxide 28 mmol/L (23-31); Chloride 96 mmol/L (98-107); Estimated GFR-MDRD 13; Glucose 103 mg/dL (83-110); Potassium 3.5 mmol/L (3.5-5.1); Sodium 133 mmol/L (136-145)
[2020-03-24 05:28] LABS: #Eosinphils 0.1 thou/uL (0.0-0.7); #Lymphocytes 1.3 thou/uL (1.20-3.40); #Monocytes 0.9 thou/uL (0.11-0.59); #Neutrophils 6.8 thou/uL (1.40-6.50); %Basophils 0.4 % (0.0-1.0); %Eosinophils 0.9 % (0.0-10.0); %Lymphocytes 14.1 % (21.0-51.0); %Monocytes 10.1 % (0.0-10.0); %Neutrophils 74.5 % (42.0-75.0); Hemoglobin 9.3 g/dL (14.0-18.0); Mean Corpuscular HGB CONC 31.6 g/dL (32.0-36.0); Mean Corpuscular Hemoglobin 34.1 pg (27.0-31.0); Mean Platelet Volume 9.6 fL (7.4-10.4); Platelet Count 74 thou/uL (130-400); RBC Distribution Width 16.9 % (11.5-14.5); Red Blood Cell (RBC) Count 2.71 mill/uL (4.70-6.10); White Blood Cell (WBC) Count 9.1 thou/uL (4.8-10.8)
[2020-03-24] MEDS: Aspirin 325 MG TAB PO SCH (09:25)
[2020-03-24] MEDS: Loratadine 10 MG TAB PO SCH (09:25)
[2020-03-24] MEDS: Insulin Glargine 15 UNITS in Pre-Filled Syringe 1 EACH SC SCH (09:25)
[2020-03-24] MEDS: Apixaban 5 MG TAB PO SCH ×2 (09:25→19:27)
[2020-03-24] MEDS: Carvedilol 6.25 MG TAB PO SCH ×3 (09:59→21:56)
[2020-03-24] MEDS: Furosemide 40 MG TAB PO SCH ×2 (10:00→20:47)
[2020-03-24] MEDS: Gabapentin 300 MG CAP PO SCH ×3 (10:01→20:47)
--- NOTE | 2020-03-24 13:42 | PRG ---
DATE OF SERVICE: 03/24/2020 SUBJECTIVE: A 69-year-old gentleman, being seen for end-stage renal disease. The patient denies any nausea or vomiting. OBJECTIVE: VITAL SIGNS: The patient is afebrile, pulse 101, breathing 16, blood pressure 94/57. General: The patient is awake and alert. HEENT: Head normocephalic and atraumatic. Eyes intact, no ulcers. Nose intact, no ulcers. Ears intact, no ulcers. Neck: Supple. No JVD. Chest: Symmetrical and clear. Cardiovascular: Shows S1 and S2, no rub, no murmur. Gastrointestinal: Abdomen is soft, bowel sounds positive. Extremities: Show no edema or ulcers. Skin: Shows no rash or petechiae. Musculoskeletal: Shows no joint swelling or stiffness. Genitourinary: Shows no Connor or CVA tenderness. Neurologic: Motor intact. Cranial nerves intact. The patient had a syncopal episode this morning. LABORATORY DATA: Hemoglobin 9.3. ASSESSMENT AND PLAN: 1. Stage 6 chronic kidney disease. Plan dialysis. 2. Hypertension, stable. 3. Hypokalemia, stable. Medication based on GFR appropriate. Job ID: [id number]
[2020-03-24] MEDS ORDERED: Albuterol 200 PUFF (6.7GM INHALER) INH PRN (14:30)
[2020-03-24 18:42] LABS: Hep B Surf Ag Non-Reactive S/CO (NonReactive)
--- NOTE | 2020-03-24 19:21 | PDOC.HOSPP ---
- Subjective Encounter Date: 03/24/20 Encounter Time: 18:00 Subjective: The patient continues to report productive cough and chest pain while taking a deep breath. He has mild runny nose. No muscle aches - Objective Vital Signs & Weight: Vital Signs (12 hours) Temp Pulse Resp BP Pulse Ox 03/24/20 17:33 100 20 108/64 94 L 03/24/20 12:22 96.8 F L 101 H 21 H 94/57 L 93 L 03/24/20 09:25 96.4 F L 109 H 20 92/54 L 95 Weight Admit Weight 145 lb 6.4 oz Weight 145 lb 6.4 oz Result Diagrams: 03/24/20 04:45 03/24/20 04:45 Additional Labs: Accuchecks 03/24/20 03/24/20 03/24/20 18:32 12:34 04:50 POC Glucose 102 139 H 111 H 03/23/20 21:32 POC Glucose 126 H Hospitalist ROS - Review of Systems Constitutional: denies: fever, chills - Medication Medications: Active Medications Generic Name Dose Route Start Last Admin Trade Name Freq PRN Reason Stop Dose Admin Apixaban 5 mg 03/23/20 21:00 03/24/20 09:25 Eliquis PO 5 mg BID BLANCA Administration Aspirin 325 mg 03/24/20 09:00 03/24/20 09:25 Aspirin PO 325 mg DAILY BLANCA Administration Atorvastatin Calcium 40 mg 03/23/20 21:00 03/23/20 21:14 Lipitor PO 40 mg HS BLANCA Administration Carvedilol 12.5 mg 03/23/20 21:00 03/24/20 09:59 Coreg PO Not Given BID BLANCA Finasteride 5 mg 03/23/20 21:00 03/23/20 21:14 Proscar PO 5 mg HS BLANCA Administration Furosemide 40 mg 03/23/20 21:00 03/24/20 10:00 Lasix PO Not Given BID BLANCA Gabapentin 300 mg 03/23/20 21:00 03/24/20 15:24 Neurontin PO Not Given TID BLANCA Insulin Glargine 15 units/ 0.15 mls @ 0 mls/hr 03/24/20 09:00 03/24/20 09:25 Miscellaneous Medication SC Not Given QAM [facility] Latanoprost 1 drop 03/23/20 21:00 03/23/20 21:13 Xalatan 0.005% Ophth Soln EA EYE 1 drp HS BLANCA Administration Loratadine 10 mg 03/24/20 09:00 03/24/20 09:25 Claritin PO 10 mg DAILY BLANCA Administration - Exam General Appearance: NAD, awake alert Eye: PERRL, anicteric sclera ENT: normocephalic atraumatic, no oropharyngeal lesions Neck: supple, symmetric, no JVD, no thyromegaly Heart: RRR, no murmur, no gallops, no rubs Respiratory: CTAB, no wheezes, no rales, no ronchi, normal percussion Gastrointestinal: soft, non-tender, non-distended, normal bowel sounds Extremities: no cyanosis, no clubbing, no edema Hosp A/P - Plan Chest X ray 03/23: bilateral opacities This is 69 year old male who presented with pneumonia #Pneumonia #History of lung cancer - on vanc, cefepime, levaquin - blood cultures negative. Will check respiratory viral panel - COVID PCR negative Hyponatremia -sodium 133, will monitor and recheck tomorrow Elevated troponin - up to 0.80. Patient reports chest pain. Obtain ECHO - continue aspirin 325 mg, statin #Pulmonary embolism - continue eliquis #Type II diabetes - continue sliding scale #Macrocytic anemia - check B12/folate tomorrow
[2020-03-24] MEDS: Finasteride 5 MG TAB PO SCH (19:27)
[2020-03-24] MEDS: Cefepime 0.5 GM in Sodium Chloride 0.9% 100 ML IVPB SCH (19:27)
[2020-03-24] MEDS: Atorvastatin Calcium 40 MG TAB PO SCH (19:27)
[2020-03-24] MEDS: Latanoprost 0.005% Ophth Soln 2.5 ml Bottle EA EYE SCH (20:47)
[2020-03-24] MEDS ORDERED: Sodium Chloride 0.9% 500 ML IV SCH (23:15)
[2020-03-25 02:30] LABS: Actual Bicarbonate (HCO3a) 28.5 mEq/L (22-28); Base Excess (BEa) 4.5 mEq/L (-2.0 to +3.0); CO2 Tension 40.4 mmHg (35.0-45.0); Calcium, Ionized 1.13 mmol/L (1.12-1.30); Carboxyhemoglobin (COHb) 1.7 gm% (0.0-3.0); Hemoglobin (Hb) 8.5 g/dL (14.0-18.0); O2 Tension (PaO2) 61.4 mmHg (> 70.0); Potassium - ABG Lab 3.91 mmol/L (3.70-5.30); pH, Arterial 7.47 (7.35-7.45)
[2020-03-25] MEDS: Albumin 25% 25 GM/100 ML BOT IVPB SCH ×3 (02:41→19:02)
[2020-03-25 03:35] LABS: Phosphorus 3.7 mg/dL (2.3-4.7)
[2020-03-25 03:39] LABS: Anion Gap 13 mmol/L (10-20); BUN (Urea Nitrogen) 21 mg/dL (8.4-25.7); Calc. Creatinine Clearance 21 mL/min (70-130); Calcium 8.3 mg/dL (7.8-10.44); Carbon Dioxide 26 mmol/L (23-31); Chloride 101 mmol/L (98-107); Estimated GFR-MDRD 20; Glucose 125 mg/dL (83-110); Magnesium 1.9 mg/dL (1.6-2.6); Potassium 4.1 mmol/L (3.5-5.1); Sodium 136 mmol/L (136-145)
[2020-03-25] MEDS: metroNIDAZOLE 500 MG in Premix Bag 1 BAG IVPB SCH ×3 (03:40→19:02)
[2020-03-25] MEDS ORDERED: Albumin 25% 25 GM/100 ML BOT IVPB SCH (04:55)
[2020-03-25] MEDS ORDERED: Sodium Chloride 0.9% 500 ML IV SCH (05:00)
[2020-03-25 05:19] LABS: Puncture Site RBA
[2020-03-25 05:32] LABS: Mean Corpuscular HGB CONC 30.8 g/dL (32.0-36.0); Mean Corpuscular Hemoglobin 33.5 pg (27.0-31.0); Red Blood Cell (RBC) Count 2.37 mill/uL (4.70-6.10); White Blood Cell (WBC) Count 5.8 thou/uL (4.8-10.8)
[2020-03-25 05:43] LABS: #Lymphocytes 0.7 thou/uL (1.20-3.40); #Monocytes 0.6 thou/uL (0.11-0.59); #Neutrophils 4.4 thou/uL (1.40-6.50); %Basophils 0.7 % (0.0-1.0); %Eosinophils 0.2 % (0.0-10.0); %Lymphocytes 12.2 % (21.0-51.0); Anisocytosis SLIGHT = 6-15 cells (100X) (0-5/hpf); MDiff Complete? YES; Macrocytosis SLIGHT = 6-15 cells (100X) (0-5/hpf); Mean Platelet Volume 9.9 fL (7.4-10.4); Platelet Count 37 thou/uL (130-400); Platelet Morphology Comment Appears Decreased; RBC Distribution Width 16.6 % (11.5-14.5)
--- NOTE | 2020-03-25 07:57 | RAD ---
CHEST 1 VIEW: INDICATION: History of fluid overload. COMPARISON: Prior exam dated 03/23/2020. FINDINGS: Bilateral airspace disease is stable. Cardiomegaly persists. No pleural effusion or pneumothorax is evident. Dialysis catheter and right chest wall port is stable-appearing. IMPRESSION: 1. Stable bilateral pneumonia. 2. Stable cardiomegaly. POS: BH
[2020-03-25] MEDS ORDERED: Carvedilol 6.25 MG TAB PO SCH (08:00)
[2020-03-25] MEDS: Aspirin 325 MG TAB PO SCH (08:36)
[2020-03-25] MEDS: Saccharomyces boulardii 250 MG CAP PO SCH (08:37)
[2020-03-25] MEDS: Loratadine 10 MG TAB PO SCH (08:37)
[2020-03-25] MEDS: Gabapentin 300 MG CAP PO SCH ×3 (08:37→21:21)
[2020-03-25] MEDS: Apixaban 5 MG TAB PO SCH ×2 (08:37→21:21)
[2020-03-25] MEDS: Insulin Glargine 15 UNITS in Pre-Filled Syringe 1 EACH SC SCH (08:37)
[2020-03-25 09:12] LABS: Platelet Count 38 thou/uL (130-400)
[2020-03-25 09:16] VITALS: BP 112/58
[2020-03-25 09:42] LABS: CKMB 2.5 ng/mL (0-6.6)
[2020-03-25] MEDS: methylPREDNISolone Sod Succ 40 MG VIAL IVP SCH ×3 (10:35→23:10)
[2020-03-25] MEDS: Bacteriostatic Water 30 ML VIAL FS PRN (10:35)
--- NOTE | 2020-03-25 10:38 | CON ---
DATE OF CONSULTATION: HISTORY OF PRESENT ILLNESS: A 69-year-old male, who has been in the hospital for several days. Last night, he became hypotensive, having difficulty breathing and was transferred down to the ICU. A 69-year-old gentleman, who is being followed by Oncology, was seen in the clinic where he was hypotensive and transferred over here for ongoing care. He stated he is having difficulty breathing with chest pain, but really no fever or chills. PAST MEDICAL HISTORY: Apparently coronary artery disease, extremely poor historian, does not recollect any of his physicians. History of diabetes; history of adenocarcinoma; history of hypertension; cardiac arrhythmias; lymphoma; end-stage renal disease, on dialysis. PREVIOUS SURGERIES: Access, bronchoscopy, biopsies, CT-guided biopsy, dialysis catheter, cholecystectomy, bypass surgery. SOCIAL HISTORY: No recent alcohol or tobacco abuse. HOME MEDICATIONS: Includes; 1. . 2. Finasteride 5. 3. Eliquis 5 twice a day. 4. Coreg . 5. Lipitor 40. 6. Folic acid. 7. Aspirin. 8. He is now on vancomycin and Maxipime. He tells me still having difficulty breathing. He received some volume last night. PHYSICAL EXAMINATION: VITAL SIGNS: His blood pressure is 90/80, pulse 80, respiratory rate 18, sats are 95% on Venti mask. GENERAL: He is responsive. CHEST: Decreased breath sounds. Minimal rhonchi. CARDIAC: Normal S1, S2. No gallops. ABDOMEN: No masses. IMPRESSION: 1. Status post hypotension, resolved. 2. Bilateral bronchopneumonia versus lung cancer. 3. Severe deconditioning. 4. Hypertension. 5. Renal failure. 6. Coronary artery disease. 7. Recent pulmonary emboli. PLAN: I scheduled neb treatments. Started him on steroids. Once the blood pressure improves, he can probably be transferred out of the ICU. This is a consultation note, 70 minutes, 50% direct patient care. Job ID: [id number]
[2020-03-25] MEDS ORDERED: Norepinephrine 8 MG/0.9% NS 250 ML IVPB SCH (10:45)
[2020-03-25 11:43] LABS: ALT (SGPT) 15 U/L (8-55); AST (SGOT) 37 U/L (5-34); Albumin 2.6 g/dL (3.4-4.8); Alkaline Phosphatase 103 U/L (40-110); Bilirubin, Direct 0.4 mg/dL (0.1-0.3); Bilirubin, Total 0.7 mg/dL (0.2-1.2)
--- NOTE | 2020-03-25 15:07 | PDOC.HOSPP ---
- Subjective Encounter Date: 03/25/20 Encounter Time: 15:05 Subjective: Patient continues to report some chest pain while taking a deep breath. He has a productive cough of white phlegm. He is able to cough more than he did yesterday. Patient desaturated overnight and became hypoxic. He was transferred to [facility] BP was dropping per nursing but improved after some albumin . - Objective Vital Signs & Weight: Vital Signs (12 hours) Temp Pulse Resp BP Pulse Ox 03/25/20 12:45 88 21 H 94 L 03/25/20 10:00 98.0 F 03/25/20 09:00 97.4 F L 95 27 H 112/58 L 03/25/20 08:00 97 03/25/20 07:00 97.5 F L 03/25/20 06:11 99 03/25/20 03:40 98.2 F 91 22 H 84/47 L 98 Weight Admit Weight 145 lb 6.4 oz Weight 145 lb 6.4 oz Most Recent Monitor Data Heart Rate from ECG 87 NIBP 93/49 NIBP BP-Mean 63 Respiration from ECG 19 SpO2 91 I&O: 03/24/20 03/25/20 03/26/20 06:59 06:59 06:59 Intake Total 120 850 Output Total 1300 50 Balance -1180 800 Result Diagrams: 03/25/20 08:49 03/25/20 08:49 Additional Labs: Accuchecks 03/25/20 03/25/20 03/24/20 10:43 04:59 19:39 POC Glucose 153 H 131 H 105 03/24/20 18:32 POC Glucose 102 Hospitalist ROS - Medication Medications: Active Medications Generic Name Dose Route Start Last Admin Trade Name Freq PRN Reason Stop Dose Admin Albumin Human 25 gm 03/25/20 03:00 03/25/20 11:45 Albumin 25% IVPB 03/26/20 03:01 Not Given 0300,1100,1900 BLANCA Albuterol/Ipratropium 3 ml 03/25/20 13:00 03/25/20 12:45 Duoneb NEB 3 ml [id number] BLANCA Administration Apixaban 5 mg 03/23/20 21:00 03/25/20 08:37 Eliquis PO 5 mg BID BLANCA Administration Aspirin 325 mg 03/24/20 09:00 03/25/20 08:36 Aspirin PO 325 mg DAILY BLANCA Administration Atorvastatin Calcium 40 mg 03/23/20 21:00 03/24/20 19:27 Lipitor PO 40 mg HS BLANCA Administration Finasteride 5 mg 03/23/20 21:00 03/24/20 19:27 Proscar PO 5 mg HS BLANCA Administration Furosemide 40 mg 03/23/20 21:00 03/24/20 20:47 Lasix PO Not Given BID BLANCA Gabapentin 300 mg 03/23/20 21:00 03/25/20 08:37 Neurontin PO 300 mg TID BLANCA Administration Cefepime HCl 0.5 gm/ Sodium 100 mls @ 200 mls/hr 03/24/20 17:00 03/24/20 19: 27 Chloride IVPB 100 mls 1700 BLANCA Administration Insulin Glargine 15 units/ 0.15 mls @ 0 mls/hr 03/24/20 09:00 03/25/20 08:37 Miscellaneous Medication SC 0.15 mls QAM BLANCA Administration Metronidazole 500 mg/ Device 100 mls @ 100 mls/hr 03/25/20 03:00 03/25/20 11: 10 IVPB 100 mls 0300,1100,1900 BLANCA Administration Latanoprost 1 drop 03/23/20 21:00 03/24/20 20:47 Xalatan 0.005% Ophth Soln EA EYE 1 drp HS BLANCA Administration Loratadine 10 mg 03/24/20 09:00 03/25/20 08:37 Claritin PO 10 mg DAILY BLANCA Administration Methylprednisolone Sodium Succinate 40 mg 03/25/20 12:00 03/25/20 10:35 Solu-Medrol IVP 40 mg Q6HR BLANCA Administration Saccharomyces Boulardii 250 mg 03/25/20 09:00 03/25/20 08:37 Florastor PO 250 mg DAILY BLANCA Administration Sterile Water 1 ml 03/25/20 09:36 03/25/20 10:35 Bacteriostatic Water FS 1 ml PRN PRN Administration RECONSTITUTION - Exam General Appearance: NAD, awake alert Eye: PERRL, anicteric sclera ENT: normocephalic atraumatic, no oropharyngeal lesions Neck: supple, no JVD Heart: RRR, no murmur, no gallops, no rubs Respiratory: CTAB, no rales, no ronchi Respiratory - other findings: diffuse wheezing, mild Gastrointestinal: soft, non-tender, non-distended, normal bowel sounds Extremities: no cyanosis, no clubbing, no edema Skin: normal turgor, no lesions, no rashes Neurological: cranial nerve grossly intact, normal sensation to touch, no focal deficits, no new deficit Musculoskeletal: normal tone, normal strength, no muscle wasting Hosp A/P - Plan Chest X ray 03/23: bilateral opacities ECHO: EF 30-35%, mild to moderate TR This is 69 year old male who presented with pneumonia #Acute hypoxic respiratory failuer secondary to Pneumonia and COPd exacerbation #History of lung cancer - on vanc, cefepime, levaquin. Flagyl added today for anaerobic coverage - blood cultures negative. respiratory viral panel negative - COVID PCR negative - started IV steroids - duonebs q4 hours -albuterol q2 hours prn - mucinex Elevated troponin - up to 0.118. ECHO with no wall motion abnormalities #Pulmonary embolism - continue eliquis #Thrombocytopenia - platelet 37, will continue to monitor - reduce aspirin to 81 mg #Type II diabetes - continue sliding scale #Macrocytic anemia - stable. B12/folate normal #Transaminitis -improving, AST down to 37, bilirubin 0.4. Will monitor
[2020-03-25] MEDS ORDERED: Albuterol Sulfate 2.5 mg/3 ml Neb IPPB PRN (15:13)
[2020-03-25] MEDS ORDERED: Albuterol 200 PUFF (6.7GM INHALER) INH PRN (15:45)
--- NOTE | 2020-03-25 15:53 | PRG ---
DATE OF SERVICE: 03/25/2020 SUBJECT: A 69-year-old gentleman, being seen for end-stage renal disease. Events noted. PHYSICAL EXAMINATION: GENERAL: The patient is awake and alert. The patient is resting. VITAL SIGNS: Afebrile, pulse 87, breathing at 16, blood pressure 99/50. HEENT: Head normocephalic and atraumatic. Eyes intact, no ulcers. Nose intact, no ulcers. Ears intact, no ulcers. NECK: Supple. No JVD. CHEST: Symmetrical and clear. CARDIOVASCULAR: Shows S1 and S2, no rub, no murmur. GASTROINTESTINAL: Abdomen is soft, bowel sounds positive. EXTREMITIES: Show no edema or ulcers. SKIN: Shows no rash or petechiae. MUSCULOSKELETAL: Shows no joint swelling or stiffness. GENITOURINARY: Shows no Connor or CVA tenderness. NEUROLOGIC: Motor intact. Cranial nerves intact. LABORATORY DATA: Hemoglobin 8. ASSESSMENT: 1. Stage 6 chronic kidney disease, plan dialysis tomorrow. 2. Hypertension, stable. 3. Anemia, stable. 4. Medication based on GFR appropriate. 5. Chronic failure to thrive with multiple underlying comorbidities. Job ID: [id number]
[2020-03-25] MEDS: Cefepime 0.5 GM in Sodium Chloride 0.9% 100 ML IVPB SCH (17:23)
[2020-03-25] MEDS: HumaLOG 300 UNITS/3 ML VIAL SC PRN (17:24)
[2020-03-25] MEDS: Albuterol 200 PUFF (6.7GM INHALER) INH SCH ×2 (18:42→21:51)
[2020-03-25] MEDS: Atorvastatin Calcium 40 MG TAB PO SCH (21:21)
[2020-03-25] MEDS: Finasteride 5 MG TAB PO SCH (21:21)
[2020-03-25] MEDS: Latanoprost 0.005% Ophth Soln 2.5 ml Bottle EA EYE SCH (21:23)
[2020-03-26] MEDS: Albuterol 200 PUFF (6.7GM INHALER) INH SCH ×6 (01:24→22:15)
[2020-03-26] MEDS: Albumin 25% 25 GM/100 ML BOT IVPB SCH (02:48)
[2020-03-26] MEDS: metroNIDAZOLE 500 MG in Premix Bag 1 BAG IVPB SCH ×3 (02:48→18:57)
[2020-03-26 04:24] LABS: #Lymphocytes 0.4 thou/uL (1.20-3.40); #Monocytes 0.2 thou/uL (0.11-0.59); #Neutrophils 3.8 thou/uL (1.40-6.50); %Lymphocytes 9.2 % (21.0-51.0); %Monocytes 5.1 % (0.0-10.0); %Neutrophils 85.6 % (42.0-75.0); Hemoglobin 7.4 g/dL (14.0-18.0); Mean Corpuscular HGB CONC 30.4 g/dL (32.0-36.0); Mean Corpuscular Hemoglobin 33.3 pg (27.0-31.0); Mean Platelet Volume 10.2 fL (7.4-10.4); Platelet Count 35 thou/uL (130-400); RBC Distribution Width 16.6 % (11.5-14.5); Red Blood Cell (RBC) Count 2.22 mill/uL (4.70-6.10); White Blood Cell (WBC) Count 4.4 thou/uL (4.8-10.8)
[2020-03-26 04:29] LABS: Anion Gap 14 mmol/L (10-20); BUN (Urea Nitrogen) 39 mg/dL (8.4-25.7); Calc. Creatinine Clearance 15 mL/min (70-130); Calcium 9.1 mg/dL (7.8-10.44); Carbon Dioxide 28 mmol/L (23-31); Chloride 98 mmol/L (98-107); Estimated GFR-MDRD 14; Glucose 307 mg/dL (83-110); Potassium 4.3 mmol/L (3.5-5.1); Sodium 136 mmol/L (136-145)
[2020-03-26] MEDS: methylPREDNISolone Sod Succ 40 MG VIAL IVP SCH ×3 (05:36→17:38)
[2020-03-26] MEDS: HumaLOG 300 UNITS/3 ML VIAL SC PRN ×4 (05:38→20:44)
[2020-03-26 07:38] VITALS: BMI 21.4
[2020-03-26] MEDS ORDERED: Aspirin 81 mg Enteric Coated Tablet PO SCH (09:00)
--- NOTE | 2020-03-26 09:00 | PRG ---
DATE OF SERVICE: 03/26/2020 SUBJECTIVE: Arnol Young this morning remains in the ICU. OBJECTIVE: VITAL SIGNS: Temperature 97, sats on 50% Ventimask 91%, blood pressure . CHEST: Decreased breath sounds. No wheezing. CARDIAC: Normal S1 and S2. No gallops. ABDOMEN: No masses. LABORATORY DATA: Creatinine is 4.1, BUN is 39. White count 4,000, H and H 7 and 24, platelet count 35. ASSESSMENT AND PLAN: Multiorgan failure, respiratory failure, metastatic carcinoma. He is scheduled for chemotherapy today. His prognosis is grave. Disposition as per primary care physician. Job ID: [id number]
[2020-03-26] MEDS ORDERED: Heparin 10,000 UNITS/ 10 ML VIAL ONE (09:23)
--- NOTE | 2020-03-26 09:23 | PRG ---
DATE OF SERVICE: 03/26/2020 SUBJECTIVE: This morning, he is still weak, still short of breath. OBJECTIVE: VITAL SIGNS: Temperature 97, blood pressure 102/60, Ventimask sats 90%. CHEST: Decreased breath sounds. He has rhonchi. CARDIAC: Normal S1 and S2. No gallops. ABDOMEN: Soft. NEUROLOGIC: He is awake. LABORATORY DATA: Creatinine is 4. Platelet count is 35,000, white count 4000, H and H 7 and 24. Echo shows a EF of 35%. IMPRESSION: 1. Multiorgan failure. 2. History of pulmonary emboli, on Eliquis. 3. Metastatic cancer. No evidence of suspected sepsis or pneumonia. I would deescalate antibiotics. He is on numerous antibiotics; Maxipime, Levaquin, Flagyl, and vancomycin. He is scheduled for his chemotherapy today as per the patient. Nurses to contact primary care oncology regarding status of today. Clearly, his prognosis remains grave with multiorgan failure. Job ID: [id number]
[2020-03-26 09:29] LABS: Vancomycin, Random 7.6 ug/mL (See Comment)
[2020-03-26] MEDS: Gabapentin 300 MG CAP PO SCH ×3 (09:36→20:15)
[2020-03-26] MEDS: Apixaban 5 MG TAB PO SCH ×2 (09:36→20:14)
[2020-03-26] MEDS: Saccharomyces boulardii 250 MG CAP PO SCH (09:36)
[2020-03-26] MEDS: Insulin Glargine 15 UNITS in Pre-Filled Syringe 1 EACH SC SCH (09:36)
[2020-03-26] MEDS: Loratadine 10 MG TAB PO SCH (09:36)
--- NOTE | 2020-03-26 09:54 | RAD ---
Exam: Chest one view HISTORY:Shortness of breath Comparison: 03/25/2020 FINDINGS: Cardiac silhouette:Cardiac megaly. Sternotomy wires Lines and tubes: Stable right-sided Mediport catheter and left-sided HemoSplit dialysis catheter Aorta: Unremarkable Pulmonary vessels: Normal Costophrenic angles: Clear LUNGS: Persistent multifocal opacities. Pneumothorax: None Osseous abnormalities: None IMPRESSION: No significant interval change. Persistent multifocal opacities.
--- NOTE | 2020-03-26 11:29 | PRG ---
DATE OF SERVICE: 03/26/2020 SUBJECTIVE: Patient was seen and examined at bedside and overnight events noted. Patient denies any shortness of breath or chest pain or palpitation. No history of nausea or vomiting or diarrhea or fever or chills or cramps. OBJECTIVE: GENERAL: This is a well-built male, on Ventimask. VITAL SIGNS: Temperature 97.8. Heart Rate 99. Respiratory rate 20. Blood pressure 112/65. HEENT: Atraumatic, normocephalic. Oral mucosa is moist. NECK: Supple. CARDIOVASCULAR: S1, S2 heard. Rate and rhythm regular. RESPIRATORY: Clear to auscultation. GASTROINTESTINAL: Abdomen is soft. MUSCULOSKELETAL: No tenderness. No edema. DERMATOLOGIC: No skin rash. NEUROLOGIC: Alert and awake and oriented x3. No focal neurologic deficits. Moving all the extremities. PSYCHIATRIC: Mood and affect normal. LABORATORY DATA: Potassium 4.3, BUN is 39, and creatinine is 4.1. ASSESSMENT AND PLAN: 1. End-stage renal disease. Prognosis seems to be poor. Family is meeting with the Palliative Care Team today to discuss the goals of care. We will have dialysis if family wishes to continue with dialysis after the meeting. 2. History of hypertension. 3. Anemia. 4. Edema. 5. Acute hypoxic respiratory failure. Prognosis is guarded. We will await decision after the family meeting with Palliative Care Team. Job ID: [id number]
[2020-03-26] MEDS: Bacteriostatic Water 30 ML VIAL FS PRN ×2 (11:33→17:38)
--- NOTE | 2020-03-26 12:26 | PDOC.PALCO ---
Palliative Care Consult - Consult Details Requesting Physician: Dr Joseph Reason for Consult: goals of care, advance directives assistance, family support Family Members Present: Patient - Pertinent HPI 69 year old male with chronic renal failure on dialysis, with B-cell lymphoma. Lives at a rpivate home with his . Daughter lives on the same property. states that he has had decline over the past few days prior to admission, dizziness with change of position and increase in assistance with ADL's. Contined weakness and shortness of breath with minimal exertion and presented to the emergency room for further evaluation. Admitted to CCU for respiratory failure and suspected bilateral pneumonia. Followed by Oncology, Dr De Jesus for chemo. - Pertinent PMH CAD, CHF with 25% ej fraction, B-Cell Lymphoma, Lung cancer, Renal disease requiring dialysis, recent pulmonary embolism. - Social History Smoking Status: Never smoker Smoking: no tobacco exposure Alcohol Use: none Drug Use History: none Living Situation: independent, - Medications MAR Reviewed: Yes - Allergies Allergies/Adverse Reactions: Allergies Allergy/AdvReac Type Severity Reaction Status Date / Time Penicillins Allergy Severe DIFFICULTY Verified 03/23/20 20:14 BREATHING clindamycin Allergy Verified 03/23/20 20:14 gentamicin Allergy Verified 03/23/20 20:14 - Subjective Labored respirations, weakness. at bedside. - ROS Constitutional: alert, weakness Eyes: other (Denies visual changes) ENT: other (deneis throat irritation, congestion) Respiratory: shortness of breath, shortness of breath with extertion Cardiology: other (negative for palpitations, chest discomfot) Gastrointestinal: other (negative for constipation, diarrhea) Musculoskeletal: arthritis/arthralgias Neurological: dizziness Skin: bruising - Objective Vital Signs: Vital Signs - Most Recent Temp Pulse Resp BP Pulse Ox 97.8 F 88 21 H 112/58 L 91 L 03/26/20 08:00 03/25/20 12:45 03/25/20 12:45 03/25/20 09:00 03/26/20 08:00 Palliative Performance Scale: 30 - Physical Exam Constitutional: cachectic, emaciated, ill appearing HEENT: EOMI, moist MMs, sclera anicteric Respiratory: accessory muscle use, labored respirations Cardiovascular: RRR Gastrointestinal: non-tender Genitourinary: continent Musculoskeletal: diffuse muscle atrophy Neurology: moves all 4 limbs, no focal deficits Skin: cap refill <2 seconds, bruising, fragile, friable Psychiatric: A&O x 3 - Problem List (1) Acute on chronic combined systolic and diastolic congestive heart failure Code(s): I50.43 - ACUTE ON CHRONIC COMBINED SYSTOLIC AND DIASTOLIC HRT FAIL Current Visit: No Status: Acute (2) Acute respiratory failure with hypoxia Code(s): J96.01 - ACUTE RESPIRATORY FAILURE WITH HYPOXIA Current Visit: No Status: Acute (3) ESRD (end stage renal disease) on dialysis Code(s): N18.6 - END STAGE RENAL DISEASE; Z99.2 - DEPENDENCE ON RENAL DIALYSIS Current Visit: No Status: Acute (4) Lung cancer Code(s): C34.90 - MALIGNANT NEOPLASM OF UNSP PART OF UNSP BRONCHUS OR LUNG Current Visit: No Status: Acute (5) Palliative care encounter Code(s): Z51.5 - ENCOUNTER FOR PALLIATIVE CARE Current Visit: No Status: Acute (6) Physical deconditioning Code(s): R53.81 - OTHER MALAISE Current Visit: No Status: Acute (7) B-cell lymphoma Code(s): C85.10 - UNSPECIFIED B-CELL LYMPHOMA, UNSPECIFIED SITE Current Visit : No Status: Chronic - Plan/Recommendations Plan: Met with patient and his , they have been 51 years. Met in [place]. They have a daughter who lives on their property and is able to assist as needed. Patient talked of family, his grandchildren. Hopeful to have dialysis today, then transition home with Hospice. Daughter and patient had discussed Hospice at home this morning, daughter has a friend who works with [facility] and they are requesting CM to contact them. Discussed resuscitation status, transition to DNAR. Dialysis this afternoon then hopeful to transition home with hospice and enjoy his family. Therapeutic listening and emotional support offered. *Communicated with Dr Joseph, she also met with family. *Communicated with Dr De Jesus *Transition to DNAR, OOHDNAR complete *Hospice consult for [facility] as per family request. CM notified. *Spiritual Care notified, Father Calos to follow up for spiritual support and additional emotional support. Please also refer to Heri Mendez RNcounseling aide notes in note section. [75] minutes spent on this encounter with >50% of the time in counseling and coordination of care. Thank you for this very appropriate consult.
[2020-03-26] MEDS: Cefepime 0.5 GM in Sodium Chloride 0.9% 100 ML IVPB SCH (17:39)
--- NOTE | 2020-03-26 18:12 | PDOC.HOSPP ---
- Subjective Encounter Date: 03/26/20 Encounter Time: 13:00 Subjective: The patient reports persistent SOB. He is tired and wants to go home with hospice. Palliative consulted. at bedside. Pt reports improvement in cough Per nursing he is saturating in 80's on venturi mask. He is no longer hypotensive - Objective Vital Signs & Weight: Vital Signs (12 hours) Temp Pulse Ox 03/26/20 16:00 90 L 03/26/20 12:00 98.0 F 03/26/20 08:00 97.8 F 91 L Weight Admit Weight 145 lb 6.4 oz Weight 149 lb 11.102 oz Most Recent Monitor Data Heart Rate from ECG 104 NIBP 101/68 NIBP BP-Mean 79 Respiration from ECG 18 SpO2 93 I&O: 03/25/20 03/26/20 03/27/20 06:59 06:59 06:59 Intake Total 120 1770 1050 Output Total 1300 50 0 Balance -1180 1720 1050 Result Diagrams: 03/26/20 03:30 03/26/20 03:30 Additional Labs: Accuchecks 03/26/20 03/26/20 03/26/20 16:44 12:27 05:42 POC Glucose 330 H 371 H 295 H Hospitalist ROS - Review of Systems Constitutional: denies: fever, chills - Medication Medications: Active Medications Generic Name Dose Route Start Last Admin Trade Name Freq PRN Reason Stop Dose Admin Albuterol Sulfate 2 puff 03/25/20 18:30 03/26/20 15:03 Proventil Hfa INH Not Given [id number] BLANCA Apixaban 5 mg 03/23/20 21:00 03/26/20 09:36 Eliquis PO 5 mg BID BLANCA Administration Aspirin 81 mg 03/26/20 09:00 03/26/20 09:36 Ecotrin PO 81 mg DAILY BLANCA Administration Atorvastatin Calcium 40 mg 03/23/20 21:00 03/25/20 21:21 Lipitor PO 40 mg HS BLANCA Administration Finasteride 5 mg 03/23/20 21:00 03/25/20 21:21 Proscar PO 5 mg HS BLANCA Administration Gabapentin 300 mg 03/23/20 21:00 03/26/20 15:34 Neurontin PO 300 mg TID BLANCA Administration Levofloxacin 500 mg/ Device 100 mls @ 100 mls/hr 03/25/20 18:00 03/25/20 18: 03 IVPB 100 mls Q2DAYS BLANCA Administration Cefepime HCl 0.5 gm/ Sodium 100 mls @ 200 mls/hr 03/24/20 17:00 03/26/20 17: 39 Chloride IVPB 100 mls 1700 BLANCA Administration Insulin Glargine 15 units/ 0.15 mls @ 0 mls/hr 03/24/20 09:00 03/26/20 09:36 Miscellaneous Medication SC 0.15 mls QAM BLANCA Administration Metronidazole 500 mg/ Device 100 mls @ 100 mls/hr 03/25/20 03:00 03/26/20 11: 34 IVPB 100 mls 0300,1100,1900 BLANCA Administration Insulin Human Lispro 0 units 03/23/20 17:59 03/26/20 16:44 Humalog SC 8 unit .MODERATE SLIDING SC PRN Administration Moderate Correctional Scale Latanoprost 1 drop 03/23/20 21:00 03/25/20 21:23 Xalatan 0.005% Ophth Soln EA EYE 1 drp HS BLANCA Administration Loratadine 10 mg 03/24/20 09:00 03/26/20 09:36 Claritin PO 10 mg DAILY BLANCA Administration Methylprednisolone Sodium Succinate 40 mg 03/25/20 12:00 03/26/20 17:38 Solu-Medrol IVP 40 mg Q6HR BLANCA Administration Saccharomyces Boulardii 250 mg 03/25/20 09:00 03/26/20 09:36 Florastor PO 250 mg DAILY BLANCA Administration Sterile Water 1 ml 03/25/20 09:36 03/26/20 17:38 Bacteriostatic Water FS 1 ml PRN PRN Administration RECONSTITUTION - Exam General Appearance: NAD, awake alert Eye: PERRL, anicteric sclera ENT: normocephalic atraumatic, no oropharyngeal lesions Neck: supple, no JVD Heart: RRR, no murmur, no gallops, no rubs Respiratory: CTAB, no wheezes, no rales, no ronchi Gastrointestinal: soft, non-tender, non-distended, normal bowel sounds Extremities: no cyanosis, no clubbing, no edema Hosp A/P - Plan Chest X ray 03/23: bilateral opacities ECHO: EF 30-35%, mild to moderate TR This is 69 year old male who presented with pneumonia #Acute hypoxic respiratory failuer secondary to Pneumonia and COPd exacerbation #History of lung cancer - on vanc, cefepime, levaquin and flagyl - blood cultures negative. respiratory viral panel negative - COVID PCR negative - continue IV steroids - duonebs q4 hours -albuterol q2 hours prn - mucinex - palliative care was consulted, patient is interested in going home with hospice. Plan on leaving at 9:30 am tomorrow Elevated troponin - up to 0.118. ECHO with no wall motion abnormalities #Pulmonary embolism - continue eliquis #Thrombocytopenia - platelet 37, will continue to monitor - continue aspirin to 81 mg #Type II diabetes - continue sliding scale #Macrocytic anemia - stable. B12/folate normal #Transaminitis -improving, AST down to 37, bilirubin 0.4. Will monitor
[2020-03-26] MEDS: Atorvastatin Calcium 40 MG TAB PO SCH (20:14)
[2020-03-26] MEDS: Latanoprost 0.005% Ophth Soln 2.5 ml Bottle EA EYE SCH (20:15)
[2020-03-26] MEDS: Finasteride 5 MG TAB PO SCH (20:15)
[2020-03-26] MEDS ORDERED: guaiFENesin ER 600 MG TAB PO SCH (21:00)
[2020-03-27] MEDS: methylPREDNISolone Sod Succ 40 MG VIAL IVP SCH (00:02)
[2020-03-27 00:03] VITALS: TEMP 97.6
[2020-03-27] MEDS: Albuterol 200 PUFF (6.7GM INHALER) INH SCH (02:15)
[2020-03-27] MEDS: metroNIDAZOLE 500 MG in Premix Bag 1 BAG IVPB SCH (04:34)
--- NOTE | 2020-03-27 08:39 | DIS ---
DATE OF ADMISSION: 03/23/2020 DATE OF DISCHARGE: 03/27/2020 DATE OF EXPIRATION: 03/27/2020. DISCHARGE DIAGNOSES: 1.Acute hypoxic respiratory failure secondary to pneumonia 2. Chronic obstructive pulmonary disease exacerbation 3. History of lung cancer, 4. Pulmonary embolism 5. Type 2 rre-EB-wxapeeecy myocardial infarction 6. Thrombocytopenia, 7. Macrocytic anemia 8. Transaminitis. CONSULTATIONS: Eron Noland with Nephrology, Ab Hobbs with Pulmonary, Kadie Horvath with Palliative Care. BRIEF HISTORY OF PRESENT ILLNESS: This is a 69-year-old male with a past medical history of lung cancer, B-cell lymphoma on chemotherapy, ESRD on dialysis, who presented with generalized weakness and shortness of breath. He was found to be hypoxic in the low 80s on room air. His chest x-ray revealed bilateral infiltrates suggestive of pneumonia. The patient was admitted for further workup and started on broad spectrum antibiotics. HOSPITAL COURSE: 1. Acute hypoxic respiratory failure secondary to pneumonia and COPD exacerbation/history of lung cancer: The patient was then treated with broad-spectrum antibiotics with vancomycin, cefepime, and Levaquin. His blood cultures were negative. His respiratory viral panel was not detected. He did have testing for COVID, which came back negative. On 03/25, he became hypotensive and his blood pressure responded to albumin. IV Flagyl was added with improvement in his blood pressure. The patient did get dialysis as well to prevent any pulmonary edema. He was given IV steroids for COPD exacerbation by pulmonary as well. Dr. De Jesus was contacted from Oncology, who stated that the patient has not received any chemotherapy in the past 2 months and he would likely be a good candidate for hospice. His lung sounds improved on 03/26 however continued to remain hypoxic and tachypneic. The patient stated that he was interested in hospice. Palliative Care was consulted and the plan was to have the patient to be discharged with hospice today on 03/27; however, the patient at 0345 am 2. Elevated troponin: The patient's troponin peaked at 0.118. His echo showed no wall motion abnormalities. 3. Thrombocytopenia: The patient did have a low platelet count of 35. His Eliquis was continued due to history of pulmonary embolism, but his aspirin was reduced to 81 mg. 4. Transaminitis: The patient did have elevated LFTs, which improved while in the hospital. He did have hepatitis B serology checked, which was negative. PERTINENT LABORATORY DATA: CBC 03/26: Showed white count of 4.4, hemoglobin 7.4, hematocrit 24, MCV 109, platelet count of 35 BMP 03/26: Creatinine was 4.14. Rest of BMP unremarkable. Lactic acid: 1.5 on the 24th. LFTs 03/25: AST 37, ALT 15, alkaline phosphatase 103, total bilirubin 0.7. Troponin I: 0.137, 0.092, 0.080, 0.118. Vitamin B12: 1174. Folate: 14.70. Serology 03/23: COVID PCR negative. Hep B surface antigen 03/24: Negative. IMAGING: Chest x-ray 03/23: Bilateral parenchymal opacity suggesting pneumonia. Chest x-ray 03/25: Stable bilateral pneumonia. Stable cardiomegaly. Chest x-ray 03/26: Persistent multifocal opacities. Echo 03/25: EF is 30% to 35%. Diastolic dysfunction noted. Moderately enlarged right atrium. Rafa-[id number]-[id number] tricuspid regurgitation. Mild pulmonic regurgitation. DISCHARGE CONDITION: The patient . Family did not request an autopsy. Job ID: [id number] [facility]
--- NOTE | 2020-03-30 02:04 | PQF ---
GEOVANY ALCALA ZAMBRANOADDY VILLANUEVA [id number] [id number] CLINICAL DOCUMENTATION CLARIFICATION FORM: POST DISCHARGE Addendum to original discharge summary date: ____ Late entry note date: __ DATE: 03/30/2020 ATTN: ADDY MCCULLOUGH Please exercise your independent, professional judgment in responding to the clarification form. Clinical indicators are provided on the bottom of this form for your review Please check appropriate box(s): [ ] Pulmonary Embolism: [ ] Acute[ ] Subacute [ ] Chronic [ X ] Hx of Pulmonary embolism [ ] Other diagnosis [ ] Unable to determine For continuity of documentation, please document condition throughout progress notes and discharge summary. Thank You. CLINICAL INDICATORS - SIGNS / SYMPTOMS / LABS - Pulmonary embolism- DS, 03/27, Jake Reynoso MD - Recent history of pulmonary emboli- H&P, 03/23, Janina Crawford MD - Recently diagnosis of PE-H&P, 03/23, Janina Crawford MD - Bilateral airspace disease is stable, Cardiomegaly persists, no pleural effusion or - Chest X ray, 03/25 RISK FACTORS - Type 2 NSTEMI- DS, 03/27, Jake Reynoso MD - Thrombocytopenia-DS, 03/27, Jake Reynoso MD - PSH: CABG- ED record, 03/23, Kerry Velasquez MD TREATMENT: - Apixaban.PO- MAR, 03/23 to 03/27 - Aspirin.PO- MAR, 03/23 to 03/27 (This form is maintained as a part of the permanent medical record) 2014 [employer]. All Rights Reserved Kaela [email or web address] DENISA
--- NOTE | 2020-04-05 05:24 | PQF ---
GEOVANY ALCALA UMA [id number] CCU-[id number] CLINICAL DOCUMENTATION CLARIFICATION FORM: POST DISCHARGE Addendum to original discharge summary date: ____ Late entry note date: __ DATE: 04/05/2020 ATTN: ADDY MCCULLOUGH Please exercise your independent, professional judgment in responding to the clarification form. Clinical indicators are provided on the bottom of this form for your review Please check appropriate box(s): HEART FAILURE: A. TYPE: [ X ] Systolic / HFrEF [ ] Diastolic / HFpEF [ ] Combined Systolic / Diastolic B. ACUITY [ ] Acute [ ] Acute on Chronic [ X] Chronic [ ] Other diagnosis [ ] Unable to determine In addition, please specify: Present on Admission (POA): [ X ] Yes [ ] No [ ] Unable to determine For continuity of documentation, please document condition throughout progress notes and discharge summary. Thank You. CLINICAL INDICATORS - SIGNS / SYMPTOMS / LABS - Heart failure with ejection fraction of 25 -H&P, 03/23, Janina Crawford MD - Cardiomyopathy with EF of 20% to 25%-H&P, 03/23, Janina Crawford MD - SOB on minimal exertion- H&P, 03/23, Janina Crawford MD - E/A flow reversal noted, suggested of diastolic dysfunction-SUNDAY, 03/25 - EF is 30-35%--SUNDAY, 03/25 - Cardiomegaly persists, No pleural effusion or pneumothorax is evident- Chest Xray, 03/25, Lacy Nicole MD RISKS: - Type 2 NSTEMI- DS, 03/27, Jake Reynoso MD - Hypertension- PN, 03/24, Nuzhat Littlejohn MD - ESRD and DM- Consultation report- 03/23, Nuzhat Littlejohn MD TREATMENTS: - Furosemide.PO- MAR, 03/23 to 03/25 [employer] (This form is maintained as a part of the permanent medical record) 2014 [employer]. All Rights Reserved Kaela [email or web address] DENISA
--- NOTE | 2020-04-05 11:35 | PQF ---
GEOVANY ALCALA UMA [id number] CCU-C08 [id number] CLINICAL DOCUMENTATION CLARIFICATION FORM: POST DISCHARGE Addendum to original discharge summary date: ____ Late entry note date: __ DATE: 04/05/2020 ATTN: ADDY MCCULLOUGH Please exercise your independent, professional judgment in responding to the clarification form. Clinical indicators are provided on the bottom of this form for your review Please check appropriate box(s): [ ] Gram Negative Pneumonia [ ] Simple Pneumonia (community acquired - nosocomial) [ X ] Pneumonia of unknown etiology [ ] Other diagnosis [ ] Unable to determine For continuity of documentation, please document condition throughout progress notes and discharge summary. Thank You. CLINICAL INDICATORS - SIGNS / SYMPTOMS / LABS - Health care associated PNA-- H&P, 03/23, Janina Crawford MD - Hx of B-cell lymphoma on Chemotherapy w/ last dose 2 days ago; lung cancer- H&P, 03/23, Janina Crawford MD - Temp: 97.3L on 03/23, 96.8L on 03/25, 98.6 on 03/26- Vital signs - WBC: 8.8 on 03/23, 4.4L on 03/26- Laboratory report, - Chest X ray: 03/25 stable bilateral pneumonia-DS,03/27, Jake Reynoso MD RISK FACTORS - Chemotherapy- H&P, 03/23, Janina Crawford MD - Acute hypoxic respiratory failure- H&P, 03/23, Janina Crawford MD - COPD- DS, 03/27, Jake Reynoso MD TREATMENTS: - Levaquin.IV 03/23 - Vancomycin.IV- 03/23 (This form is maintained as a part of the permanent medical record) 2014 [email or web address]. All Rights Reserved [email or web address] [email or web address]
== END 2020-03-27 03:45 | disposition expired | DRG 193 ==
LOC: ERS 15:34 → 2SW 17:29 → CCU 03-25 05:19
PROVIDERS: ADMIT Internal Medicine; ATTEND Internal Medicine
PROC: 8E0ZXY6 Isolation (ICD-10-PCS; principal; 2020-03-23)
PROC: 02HV33Z Insertion of Infusion Device into Superior Vena Cava, Percutaneous Approach (ICD-10-PCS; 2020-03-23)
PROC: 3E03305 Introduction of Other Antineoplastic into Peripheral Vein, Percutaneous Approach (ICD-10-PCS; 2020-03-24)
PROC: 5A1D70Z Performance of Urinary Filtration, Intermittent, Less than 6 Hours Per Day (ICD-10-PCS; 2020-03-24)
PROC: 3E033XZ Introduction of Vasopressor into Peripheral Vein, Percutaneous Approach (ICD-10-PCS; 2020-03-25)
DX: J18.9 Pneumonia, unspecified organism (principal); J96.01 Acute respiratory failure with hypoxia; I21.A1 Myocardial infarction type 2; N18.6 End stage renal disease; J44.1 Chronic obstructive pulmonary disease with (acute) exacerbation; J44.0 Chronic obstructive pulmonary disease with (acute) lower respiratory infection; I42.9 Cardiomyopathy, unspecified; E87.1 Hypo-osmolality and hyponatremia; C78.02 Secondary malignant neoplasm of left lung; C78.01 Secondary malignant neoplasm of right lung; C85.10 Unspecified B-cell lymphoma, unspecified site; I13.2 Hypertensive heart and chronic kidney disease with heart failure and with stage 5 chronic kidney disease, or end stage renal disease; I50.22 Chronic systolic (congestive) heart failure; Z20.828 Contact with and (suspected) exposure to other viral communicable diseases; Z51.5 Encounter for palliative care; D69.6 Thrombocytopenia, unspecified; R74.0 Nonspecific elevation of levels of transaminase and lactic acid dehydrogenase [LDH]; D63.1 Anemia in chronic kidney disease; E78.5 Hyperlipidemia, unspecified; R53.81 Other malaise; E78.00 Pure hypercholesterolemia, unspecified; L89.151 Pressure ulcer of sacral region, stage 1; E87.6 Hypokalemia; R40.2362 Coma scale, best motor response, obeys commands, at arrival to emergency department; Z68.21 Body mass index [BMI] 21.0-21.9, adult; R62.7 Adult failure to thrive; I25.10 Atherosclerotic heart disease of native coronary artery without angina pectoris; R40.2142 Coma scale, eyes open, spontaneous, at arrival to emergency department; R40.2252 Coma scale, best verbal response, oriented, at arrival to emergency department; I95.9 Hypotension, unspecified; E11.22 Type 2 diabetes mellitus with diabetic chronic kidney disease; Z95.1 Presence of aortocoronary bypass graft; Z95.5 Presence of coronary angioplasty implant and graft; Z90.49 Acquired absence of other specified parts of digestive tract; Z88.1 Allergy status to other antibiotic agents; Z88.0 Allergy status to penicillin; Z86.711 Personal history of pulmonary embolism; Z99.2 Dependence on renal dialysis
CPT/HCPCS: 36415; 36416; 71045; 80048; 80053; 80076; 80202; 82248; 82553; 82607; 82746; 82805; 83605; 83615; 83735; 84100; 84484; 84550; 85025; 87040; 87340; 87633; 87635; 90935; 93005; 93306; 94640; 94760; 96365; 96367; G0257; J0692; J1642; J1644; J1815; J1956; J2405; J2920; J3370; J3490; J7050; J7620; P9045; P9047; U0003